=== PATIENT | female | born 1950 | race Caucasian/White ===

== ENCOUNTER 2023-03-28 13:58 | Outpatient (OUT) | payer MEDICARE, OTHER, SELFPAY ==
--- NOTE | 2023-03-28 14:14 | CT_ITS ---
The [address] [address] Patient Name: TRAN RAYA MRN: [id number] date: 1950 Sex: F Assigned Patient Location: CT Current Patient Location: CT Accession/Order Number: [id number] Exam Date: 03/28/2023 14:35 Report Date: 03/28/2023 18:07 At the request of: NAGA VENTURA Procedure: CT chest wo con EXAM: CT chest wo con HISTORY: Multifocal pneumonia J18.9 COMPARISON: CT chest 12/29/2022. TECHNIQUE: Helical axial CT images of the chest were obtained without the administration of IV contrast. Dose reduction techniques were achieved by using automated exposure control and/or adjustment of mA and/or kV according to patient size and/or use of iterative reconstruction technique. FINDINGS: VASCULATURE: No aneurysm. There are moderate calcific plaques in thoracic aorta. HEART/PERICARDIUM: The heart is normal in size. No pericardial effusion. There are multivessel atherosclerotic calcifications and/or stents at coronary arteries, most prominent at LAD coronary artery. MEDIASTINAL/HILAR LYMPH NODES: Within the limitations of lack of IV contrast, no lymphadenopathy are identified. ESOPHAGUS: There is mild diffuse wall thickening of distal esophagus. PLEURAL CAVITY: No pleural effusion or pneumothorax. LUNGS/AIRWAYS: No areas of new consolidation, nodule or mass is seen. There are scarring and mild linear atelectasis with subtle groundglass opacities in right middle lobe and lingula. There are moderate centrilobular emphysematous changes in bilateral upper lobes. Biapical and bibasilar scarring is noted. The central airways are patent. CHEST WALL/AXILLA/LOWER NECK: Normal. VISUALIZED UPPER ABDOMEN: Images through the upper abdomen demonstrates no acute abnormality. BONES: No acute process.. There are degenerative changes of thoracic spine and accentuation of thoracic kyphosis. IMPRESSION: 1. No acute cardiopulmonary abnormality, specifically no evidence of pneumonia. 2. Scarring/linear atelectasis with subtle groundglass opacities in right middle lobe and lingula, likely represent sequela of previous multifocal pneumonia. Emphysema in bilateral upper lobes 3. Multivessel severe coronary artery calcifications and/or stents. 4. Mild diffuse wall thickening of distal esophagus, may represent esophagitis. Electronically authenticated by: [facility] Date: 03/28/2023 18:07
== END 2023-03-28 13:59 | disposition home or self-care (01) ==
LOC: CT 14:04
PROVIDERS: PCP Family Medicine; Visit Provider Internal Medicine
DX: J18.9 Pneumonia, unspecified organism (principal)
CPT/HCPCS: 71250

== ENCOUNTER 2023-08-08 06:20 | Outpatient (OUT) | payer MEDICARE, MEDICAID, OTHER, SELFPAY ==
[2023-08-08 06:57] LABS: Basophils Absolute Auto 0.1 10^3/uL (0.0-0.1); Eosinophils Absolute Auto 0.2 10^3/uL (0.0-0.7); Hematocrit 45.1 % (36.0-48.0); Hemoglobin 14.3 g/dL (12.0-16.0); Immature Granulocytes Abs Auto 0.01 10^3/uL (0.00-0.03); Immature Granulocytes Pct Auto 0.1 % (0.0-0.5); Lymphocytes Absolute Auto 1.8 10^3/uL (1.2-3.8); Mean Corpuscular HGB Conc 31.7 g/dL (29.9-35.2); Mean Corpuscular Hemoglobin 30.8 pg (26.7-34.0); Mean Platelet Volume 9.7 fL (9.5-13.5); Monocytes Absolute Auto 0.6 10^3/uL (0.3-0.8); Monocytes Percent Auto 8.7 % (1.7-12.0); Neutrophils Absolute Auto 4.3 10^3/uL (1.4-6.5); Neutrophils Percent Auto 61.2 % (43.0-75.0); Platelet Count 222 10^3/uL (150-450); Red Blood Count 4.65 10^6/uL (4.20-5.40); Red Cell Distribution Width 13.1 % (11.0-15.0); White Blood Count 7.1 10^3/uL (4.0-11.0)
[2023-08-08 08:16] LABS: Alanine Aminotransferase 24 U/L (14-59); Albumin Level 3.4 g/dL (3.4-5.0); Alkaline Phosphatase 116 U/L (46-116); Anion Gap 9.1; Aspartate Amino Transferase 15 U/L (15-37); BUN Creatinine Ratio 25.5; Bilirubin Total 0.7 mg/dL (0.2-1.0); Calcium 9.5 mg/dL (8.5-10.1); Carbon Dioxide 32.6 mmol/L (21.0-32.0); Chloride 103 mmol/L (98-107); Cholesterol 145 mg/dL (<=200); Estimated GFR (African America >60 (>=60); Estimated GFR (Non-African Ame 58 (>=60); Globulin 3.3 g/dL; Glucose 102 mg/dL (74-106); HDL Cholesterol 74 mg/dL (40-60); Potassium 4.7 mmol/L (3.5-5.1); Sodium 140 mmol/L (136-145); Total Protein 6.7 g/dL (6.4-8.2); Triglycerides 63 mg/dL (<=150); VLDL CHOLESTEROL 12.6 mg/dL
[2023-08-08 08:22] LABS: Creatinine Urine Random 156.76 mg/dL (20.00-300.00); Microalbum Creatinine Ratio Ur 10.8 mg/g (0.0-29.9); Microalbumin Urine Random 1.7 mg/dL (<=30.0)
[2023-08-08 08:41] LABS: Estimated Average Glucose 128 mg/dL; Glycohemoglobin A1C 6.1 % (4.5-6.2)
== END 2023-08-08 06:21 | disposition home or self-care (01) ==
PROVIDERS: PCP Nurse Practitioner Family; Visit Provider Nurse Practitioner Family
DX: E78.2 Mixed hyperlipidemia (principal); E11.9 Type 2 diabetes mellitus without complications
CPT/HCPCS: 36415; 80053; 80061; 82043; 82570; 83036; 85025

== ENCOUNTER 2023-11-18 12:49 | Outpatient (OUT) | payer MEDICARE, OTHER, MEDICAID, SELFPAY ==
--- NOTE | 2023-11-18 12:52 | CT_ITS ---
[address] [address] Patient Name: TRAN RAYA MRN: [id number] date: 1950 Sex: F Assigned Patient Location: CT Current Patient Location: CT Accession/Order Number: [id number] Exam Date: 11/18/2023 13:05 Report Date: 11/18/2023 15:36 At the request of: NAGA VENTURA Procedure: CT lung screening low-dose EXAM TYPE: CT lung screening low-dose INDICATION: Current smoker. COMPARISON: CT chest 12/29/2022, LD CT scan of the chest 11/17/2022 TECHNIQUE: Noncontrast, Low dose, helical axial images of the chest were obtained, and thin section, axial MIP, and coronal and sagittal reformats were also submitted from the acquisition scanner under radiologist supervision. Each series was submitted in a lung algorithm. Dose reduction techniques were achieved by using automated exposure control and/or adjustment of mA and/or kV according to patient size and/or use of iterative reconstruction technique. FINDINGS: Please note that this examination was tailored for evaluation of pulmonary nodules, and therefore soft tissue detail is suboptimal. Heart size within normal limits. No pericardial effusion. Coronary artery calcification and calcified atherosclerotic change within the aorta. No aortic aneurysm. No mediastinal or axillary lymphadenopathy. Small amount of layering debris within the distal trachea and bilateral mainstem bronchi. No central endobronchial nodule. Mild diffuse emphysematous change and bronchial wall thickening. Scarring at the lung apices. No lobar consolidation, pleural effusion or pneumothorax. Calcified right upper lobe granuloma. Small focus of atelectasis within the lingula. No new suspicious noncalcified pulmonary nodule. No acute findings in the upper abdomen. No acute fracture. CT/CT lung screening low-dose IMPRESSION: Lung RADS category 1: Negative. LD CT scan of the chest in one year recommended. Electronically authenticated by: CRISTY COX Date: 11/18/2023 15:36
--- OUTSIDE RECORDS SUMMARY | 2023-11-18 12:53 | XMS_ITS | CCD ---
Author Name Unknown Address [address] [facility] [address] [place] [address] Organization [facility] Care Team Providers Care Security Control Assessor Name Role Phone SAMSA, NAGA P Attending Unavailable SAMSA, NAGA P Admitting Unavailable SAMSA ., NAGA Admitting Unavailable SAMSA ., NAGA Attending Unavailable SKIP, DR DELA CRUZ Primary Care Unavailable Jean Mooney Consulting Unavailable SAMSA ., NAGA Consulting Unavailable SAMSA ., NAGA Admitting Unavailable SAMSA ., NAGA Attending Unavailable SKIP, DR DELA CRUZ Primary Care Unavailable SAMSA ., NAGA Consulting Unavailable SAMSA ., NAGA Admitting Unavailable SAMSA ., NAGA Attending Unavailable SKIP, DR DELA CRUZ Primary Care Unavailable SAMSA ., NAGA Consulting Unavailable SKIP, DR DELA CRUZ Primary Care Unavailable FAWWAJudy, BHAT H Admitting Unavailable HERNAN, BHAT H Attending Unavailable SAMSA ., NAGA Consulting Unavailable GAIL SCHAEFER Consulting Unavailable NOLAN ., POONAM Consulting Unavailable FAWWAD, BHAT H Consulting Unavailable ARMAND PATEL Consulting Unavailable SISTER, MICHAEL Consulting Unavailable JOCY MUÑOZ Consulting Unavailable Lazara Hernandez Unavailable Wesley Valdivia DO Primary Care Provider TASHA PADGETT Attending Unavailable WESLEY VALDIVIA Referring Unavailable WESLEY VALDIVIA Primary Care Unavailable Allergies Allergy Classification Reported Allergen(s) Allergy Type Date of Onset Reaction(s) Facility (1 source) Ticagrelor Drug Allergy 12-29-2012 [facility] Repository (2 sources) Ticagrelor; Translations: [TICAGRELOR] Drug Allergy 11-19-2016 [facility] Medications Current Medications Medication Drug Class(es) Dates Sig (Normalized) Sig (Original) acetaminophen 500 mg oral tablet (1 source) Start: 12-19-2022 take 2 tablets by mouth every six hours as needed for pain acetaminophen (TYLENOL EXTRA STRENGTH) 500 mg tablet Take 2 tablets (1,000 mg total) by mouth every 6 (six) hours as needed for pain. 30 tablet 0 12/19/2022 Active atorvastatin 80 mg oral tablet (3 sources) HMG-CoA Reductase Inhibitor Start: 02-25-2023 take 1 tablet by mouth in the morning atorvastatin (LIPITOR) 80 mg tablet Indications: Mixed hyperlipidemia , PAD (peripheral artery disease) ([facility]) , Atherosclerotic PVD with intermittent claudication ([facility]) Take 1 tablet (80 mg total) by mouth in the morning. 90 tablet 3 02/25/2023 Active 120 actuat budesonide 0.16 mg/actuat / formoterol fumarate 0.0048 mg/actuat / glycopyrrolate 0.009 mg/actuat metered dose inhaler (2 sources) Corticosteroid, beta2-Adrenergic Agonist take 2 puff(s) by inhalation twice daily Breztri Aerosphere 160-9-4.8 MCG/ACT 2 puffs Inhalation Twice a day Active furosemide 20 mg oral tablet (3 sources) Loop Diuretic Start: 02-07-2023 take 1 tablet by mouth once daily furosemide (LASIX) 20 mg tablet Take 1 tablet (20 mg total) by mouth daily. 90 tablet 3 02/07/2023 Active lidocaine 25 mg/ml / prilocaine 25 mg/ml topical cream (1 source) Antiarrhythmic, Amide Local Anesthetic Start: 02-07-2023 lidocaine-prilocaine (EMLA) cream 1 Application lisinopril 5 mg oral tablet (3 sources) Angiotensin Converting Enzyme Inhibitor Start: 02-07-2023 take 1 tablet by mouth in the morning lisinopriL (PRINIVIL,ZESTRIL) 5 mg tablet Take 1 tablet (5 mg total) by mouth in the morning. 90 tablet 3 02/07/2023 Active metFORMIN hydrochloride 500 mg oral tablet (3 sources) Biguanide Start: 10-26-2016 take 1 tablet by mouth in the morning, then take 1 tablet by mouth at mealtime metFORMIN (GLUCOPHAGE) 500 mg tablet Take 1 tablet (500 mg total) by mouth in the morning and 1 tablet (500 mg total) in the evening. Take with meals. 0 10/26/2016 Active pramipexole dihydrochloride 1 mg oral tablet (3 sources) Nonergot Dopamine Agonist Start: 08-03-2023 pramipexole (MIRAPEX) 1 mg tablet 12 hr ranolazine 500 mg extended release oral tablet (3 sources) Anti-anginal Start: 02-17-2023 take 1 tablet by mouth every twelve hours in the morning, then take 1 tablet by mouth at bedtime ranolazine (RANEXA) 500 mg 12 hr tablet Take 1 tablet (500 mg total) by mouth in the morning and 1 tablet (500 mg total) before bedtime. 180 tablet 3 02/17/2023 Active take 1 tablet by mouth twice sonal ly Ranexa 500 MG 1 tablet Orally twice daily Active Completed/Discontinued Medications Medication Drug Class(es) Dates Sig (Normalized) Sig (Original) Aspir-81 81 MG (2 sources) take 1 tablet by mouth once daily Aspir-81 81 MG 1 tablet Orally Once a day Not-Taking cilostazol 100 mg oral tablet (2 sources) Phosphodiesterase 3 Inhibitor take 1 tablet by mouth every twelve hours Cilostazol 100 MG 1 tablet 30 minutes before or 2 hours after breakfast and dinner Orally Twice a day Not-Taking clopidogrel 75 mg oral tablet (2 sources) P2Y12 Platelet Inhibitor take 1 tablet by mouth every twenty-four hours Clopidogrel Bisulfate 75 MG 1 tablet Orally Once a day Not-Taking cyclobenzaprine hydrochloride 10 mg oral tablet (2 sources) Muscle Relaxant take 1 tablet by mouth every eight hours Cyclobenzaprine HCl 10 MG 1 tablet as needed Orally Three times a day Not-Taking hydroCHLOROthiazide 25 mg oral tablet (2 sources) Thiazide Diuretic take 1 tablet by mouth every twenty-four hours hydroCHLOROthiazide 25 MG 1 tablet in the morning Orally Once a day Not-Taking ibuprofen 600 mg oral tablet (1 source) Nonsteroidal Anti-inflammatory Drug Start: 12-20-19 End: 10-18-19 24 take 1 tablet by mouth every six hours ibuprofen (MOTRIN) 600 mg tablet Take 1 tablet (600 mg total) by mouth every 6 (six) hours. 30 tablet 0 12/19/2022 10/18/2023 Discontinued metoprolol tartrate 25 mg oral tablet (2 sources) beta-Adrenergic Mariangel take 1 tablet by mouth every twelve hours Metoprolol Tartrate 25 MG 1 tablet with food Orally Twice a day Not-Taking Problems Active Problems Problem Classification Problem Date Documented Date Episodic/Chronic Aortic; peripheral; and visceral artery aneurysms (1 source) Aneurysm of infrarenal abdominal aorta ; Translations: [Infrarenal abdominal aortic aneurysm (AAA) without rupture] Onset: 01-10-2023 01-10-2023 Chronic Chronic obstructive pulmonary disease and bronchiectasis (9 sources) Chronic obstructive pulmonary disease with (acute) lower respiratory infection; Translations: [Chronic obstructive pulmonary disease with (acute) exacerbation] Onset: 11-15-2022 Chronic Coronary atherosclerosis and other heart disease (5 sources) Atherosclerotic heart disease of [place] coronary artery without angina pectoris; Translations: [Disorder of cardiovascular system] Onset: 08-02-2018 Chronic Coronary atherosclerosis and other heart disease (2 sources) Presence of coronary angioplasty implant and graft; Translations: [PRESENCE COR ANGPLSTY IMPLANT AND GRAFT] Onset: 01-05-2023 Episodic Diabetes mellitus without complication (3 sources) Type 2 diabetes mellitus without complication; Translations: [Type 2 diabetes mellitus without complications] Chronic Disorders of lipid metabolism (5 sources) Hyperlipidemia, unspecified; Translations: [Mixed hyperlipidemia] Onset: 11-22-2016 Chronic Essential hypertension (4 sources) Essential (primary) hypertension; Translations: [Essential hypertension] Onset: 01-05-2023 Chronic Miscellaneous mental health disorders (1 source) Other specified eating disorder; Translations: [OTHER SPECIFIED EATING DISORDER] Onset: 01-16-2023 Chronic Occlusion or stenosis of precerebral arteries (2 sources) Bilateral stenosis of carotid arteries; Translations: [Occlusion and stenosis of bilateral carotid arteries] Onset: 02-14-2017 Resolved: 01-04-2019 02-14-2017 Chronic Other aftercare (1 source) Other termite treater (current) drug therapy; Translations: [OTH HALFWAY CURRENT DRUG THERAPY] Onset: 01-05-2023 Episodic Other aftercare (1 source) exterminator termite (current) use of oral hypoglycemic drugs; Translations: [HEAVY TRUCK DRIVER USE ORAL HYPOGLYCEMIC DX] Onset: 01-05-2023 Episodic Other fractures (2 sources) Closed fracture pelvis, single pubic ramus ; Translations: [Other specified fracture of unspecified pubis, subsequent encounter for fracture with routine healing] Episodic Other fractures (2 sources) Fracture of pubic rami; Translations: [Other specified fracture of unspecified pubis, initial encounter for closed fracture] Episodic Other hematologic conditions (4 sources) Secondary polycythemia; Translations: [SECONDARY POLYCYTHEMIA] Onset: 01-11-2023 Episodic Other hereditary and degenerative nervous system conditions (2 sources) Restless legs; Translations: [Restless legs syndrome] Chronic Other hereditary and degenerative nervous system conditions (1 source) Restless legs syndrome Chronic Other injuries and conditions due to external causes (1 source) History of falling; Translations: [HISTORY OF FALLING] Onset: 01-05-2023 Episodic Peripheral and visceral atherosclerosis (4 sources) Peripheral vascular disease, unspecified; Translations: [Peripheral vascular disease] Onset: 11-22-2016 11-22-2016 Chronic Pneumonia (except that caused by tuberculosis or sexually transmitted disease) (1 source) Pneumonia, unspecified organism; Translations: [PNEUMONIA UNSPECIFIED ORGANISM] Onset: 01-05-2023 Episodic Prolapse of female genital organs (2 sources) Midline cystocele; Translations: [Cystocele, midline] Onset: 10-26-2017 10-18-2023 Chronic Respiratory failure; insufficiency; arrest (adult) (7 sources) Acute and chronic respiratory failure with hypoxia; Translations: [Dependence on supplemental oxygen] Onset: 11-11-2022 Chronic Screening and history of mental health and substance abuse codes (5 sources) Personal history of nicotine dependence; Translations: [PERSONAL HISTORY OF NICOTINE DEPEND] Onset: 11-17-2022 Episodic Septicemia (except in labor) (4 sources) Sepsis, unspecified organism; Translations: [Gram-negative sepsis, unspecified] Onset: 12-29-2022 Episodic Substance-related disorders (4 sources) Nicotine dependence, cigarettes, with withdrawal; Translations: [Nicotine dependence] Onset: 11-15-2022 Chronic Unclassified (1 source) CONTACT W/AND (SUSP) EXPOS COVID-19; Translations: [CONTACT W/AND (SUSP) EXPOS COVID-19] Onset: 01-05-2023 Past or Other Problems Problem Classification Problem Date Documented Da te Episodic/Chronic Anal and rectal conditions (1 source) Rectal prolapse; Translations: [Rectal prolapse] Onset: 01-02-2018 01-02-2018 Episodic Mood disorders (1 source) Mood disorders Onset: 10-28-2021 10-28-2021 Other fractures (1 source) Closed fracture of one rib; Translations: [Fracture of one rib, unspecified side, initial encounter for closed fracture] Onset: 12-19-2022 12-19-2022 Episodic Other lower respiratory disease (1 source) Dyspnea; Translations: [Shortness of breath] Resolved: 01-04-2019 01-04-2019 Episodic Residual codes; unclassified (1 source) Tobacco user; Translations: [Tobacco use] Onset: 05-12-2020 05-12-2020 Episodic Respiratory failure; insufficiency; arrest (adult) (1 source) Acute respiratory failure; Translations: [Acute respiratory failure with hypoxia] Onset: 10-04-2022 10-05-2022 Episodic Results Test Name Value Interpretation Reference Range Facility TRANSFERRINon 01-12-2023 Transferrin [Mass/Vol] 234 mg/dL Normal 192-364 [facility] Comment on above: Performed By: #### P OCGLUC #### [facility] [address] [place] [address] Dr. Demetrio Kan CBC AUTO DIFFon 01-11-2023 BASO # 0.1 103/ul Normal 0.0-0.1 [facility] Comment on above: Performed By: #### C BC, RETIC #### [facility] [address] [place] [address] Dr. Demetrio Kan Basophils/100 WBC (Bld) 0.8 % Normal 0.2-2.0 [facility] Comment on above: Performed By: #### C BC, RETIC #### [facility] [address] [place] [address] Dr. Demetrio Kan EO # 0.1 103/ul Normal 0.0-0.7 [facility] Comment on above: Performed By: #### C BC, RETIC #### [facility] [address] [place] [address] Dr. Demetrio Kan Eosinophils/100 WBC (Bld) 1.1 % Normal 0.9-7.0 [facility] Comment on above: Performed By: #### C BC, RETIC #### [facility] [address] [place] [address] Dr. Demetrio Kan Erythrocyte distribution width (RBC) [Ratio] 14.6 % Normal 11.0-15.0 [facility] Comment on above: Performed By: #### C BC, RETIC #### [facility] [address] [place] [address] Dr. Demetrio Kan Hematocrit (Bld) [Volume fraction] 39.4 % Normal 36.0-48.0 [facility] Comment on above: Performed By: #### C BC, RETIC #### [facility] [address] [place] [address] Dr. Demetrio Kan Hemoglobin (Bld) [Mass/Vol] 12.6 g/dL Normal 12.0-16.0 [facility] Comment on above: Performed By: #### C BC, RETIC #### [facility] [address] [place] [address] Dr. Demetrio Kan IG # 0.05 10e3/ul Critically high 0.00-0.03 [facility] Comment on above: Performed By: #### C PHIL, RETIC #### [facility] [address] [place] [address] Dr. Demetrio Kan IG % 0.6 % Critically high 0.0-0.5 [facility] Comment on above: Performed By: #### C BC, RETIC #### [facility] [address] [place] [address] Dr. Demetrio Kan LYMPH # 1.2 103/ul Normal 1.2-3.8 [facility] Comment on above: Performed By: #### C PHIL, RETIC #### [facility] [address] [place] [address] Dr. Demetrio Kan Lymphocytes/100 WBC (Bld) 14.3 % Critically low 20.5-60.0 [facility] Comment on above: Performed By: #### C BC, RETIC #### [facility] [address] [place] [address] Dr. Demetrio Kan MANUAL DIFF REQ NO Normal [facility] Comment on above: Performed By: #### C BC, RETIC #### [facility] [address] [place] [address] Dr. Demetrio Kan MCH (RBC) [Entitic mass] 31.0 pg Normal 26.7-34.0 [facility] Comment on above: Performed By: #### C BC, RETIC #### [facility] [address] [place] [address] Dr. Demetrio Kan MCHC (RBC) [Mass/Vol] 32.0 g/dL Normal 29.9-35.2 [facility] Comment on above: Performed By: #### C BC, RETIC #### [facility] [address] [place] [address] Dr. Demetrio Kan MCV (RBC) [Entitic vol] 97.0 fL Normal 81.0-99.0 [facility] Comment on above: Performed By: #### C BC, RETIC #### [facility] [address] [place] [address] Dr. Demetrio Kan MONO # 0.7 103/ul Normal 0.3-0.8 [facility] Comment on above: Performed By: #### C BC, RETIC #### [facility] [address] [place] [address] Dr. Demetrio Kan Monocytes/100 WBC (Bld) 8.7 % Normal 1.7-12.0 [facility] Comment on above: Performed By: #### C BC, RETIC #### [facility] [address] [place] [address] Dr. Demetrio Kan NEUT # 6.3 103/ul Normal 1.4-6.5 [facility] Comment on above: Performed By: #### C BC, RETIC #### [facility] [address] [place] [address] Dr. Demetrio Kan Neutrophils/100 WBC (Bld) 74.5 % Normal 43.0-75.0 [facility] Comment on above: Performed By: #### C BC, RETIC #### [facility] [address] [place] [address] Dr. Demetrio Kan Platelet mean volume (Bld) [Entitic vol] 9.6 fL Normal 9.5-13.5 [facility] Comment on above: Performed By: #### C BC, RETIC #### [facility] [address] [place] [address] Dr. Demetrio Kan PLT 275 103/ul Normal 150-450 [facility] Comment on above: Performed By: #### C BC, RETIC #### [facility] [address] [address] [address] Demetrio Kan RBC 4.06 106/ul Critically low 4.20-5.40 [facility] Comment on above: Performed By: #### C BC, RETIC #### [facility] [address] [address] [address] Demetrio Kan WBC 8.5 103/ul Normal 4.0-11.0 [facility] Comment on above: Performed By: #### C BC, RETIC #### [facility] [address] [address] [address] Demetrio Kan FERRITINon 01-11-2023 Ferritin [Mass/Vol] 323.0 ng/mL Critically high 8.0-252.0 [facility] Comment on above: Performed By: #### C MP, BNP, CMADM #### [facility] [address] [place] [address] Dr. Demetrio Kan IRON AND TIBCon 01-11-2023 % SATURATION 28.6 % Normal [facility] Comment on above: Performed By: #### C MP, BNP, CMADM #### [facility] [address] [place] [address] Dr. Demetrio Kan Iron [Mass/Vol] 79.0 ug/dL Normal 50.0-170.0 [facility] Comment on above: Performed By: #### C MP, BNP, CMADM #### [facility] [address] [place] [address] Dr. Demetrio Kan TIBC DIRECT 276.0 ug/dL Normal 250.0-450.0 [facility] Comment on above: Performed By: #### C MP, BNP, CMADM #### [facility] [address] [place] [address] Dr. Demetrio Kan RETICULOCYTEon 01-11-2023 RETIC 1.71 % Normal 0.60-3.10 [facility] Comment on above: Performed By: #### C BC, RETIC #### [facility] [address] [place], [place] [id number] Dr. Demetrio Kan VIT B12 AND FOLATEon 023 Cobalamin (Vitamin B12) [Mass/Vol] 771.0 pg/mL Normal 193.0-986.0 [facility] Comment on above: Performed By: #### P OCGLUC #### [facility] [address] [address] [address] Demetrio Kan FOLATE 10.00 ng/mL Normal 8.60-58.90 [facility] Comment on above: Performed By: #### P OCGLUC #### [facility] [address] [address] [address] Demetrio Kan CULTURE SPUTUMon 01-01-2023 CULTURE SPUTUM Isolate 1 Klebsiella pneumoniae Light growth of Isolate 2 Escherichia coli Light growth of ORGANISM 1 Klebsiella pneumoniae ANTIBIOTIC M.I.C RX STATUS Ampicillin >=32 R F Ampicillin/Sulbactam 4 S F Piperacillin/Tazobac gandara <=4 S F Cefazolin <=4 S F Ceftazidime <=1 S F Ceftriaxone <=1 S F Ertapenem <=0.5 S F Imipenem <=0.25 S F Amikacin <=2 S F Gentamicin <=1 S F Tobramycin <=1 S F Ciprofloxacin <=0.25 S F Levofloxacin <=0.12 S F Trimethoprim/Sulfame thoxazole <=20 S F ORGANISM 2 Escherichia coli ANTIBIOTIC M.I.C RX STATUS Ampicillin 8 S F Ampicillin/Sulbactam 4 S F Piperacillin/Tazobac gandara <=4 S F Cefazolin <=4 S F Ceftazidime <=1 S F Ceftriaxone <=1 S F Ertapenem <=0.5 S F Imipenem <=0.25 S F Amikacin <=2 S F Gentamicin <=1 S F Tobramycin <=1 S F Ciprofloxacin <=0.25 S F Levofloxacin <=0.12 S F Trimethoprim/Sulfame thoxazole <=20 S F Normal [facility] Comment on above: Performed By: #### S PUTCX ####[facility] [address] [address]Dr. Demetrio Kan CBC W MANUAL DIFFon 01-01-20 23 ATYPICAL LYMPH # Normal [facility] Comment on above: Performed By: #### C JESSE ####[facility] [address] [id number]. Yilan Kan ATYPICAL LYMPH % Normal [facility] Comment on above: Performed By: #### C JESSE ####[facility] [address] [place] [id number]. Yilan Kan BAND # 0.0 103/ul Normal 0.0-0.3 [facility] Comment on above: Performed By: #### C JESSE ####[facility] [address] [id number]. Yilan Kan BAND % 0 % Normal 0-5 [facility] Comment on above: Performed By: #### C JESSE ####[facility] [address] [address]Dr. Yijosé miguel Kan BASOM # 0.00 103/ul Normal 0.00-0.10 [facility] Comment on above: Performed By: #### C JESSE ####[facility] [address] [address]Dr. Yijosé miguel Kan BASOM % 0.0 % Critically low 0.2-2.0 [facility] Comment on above: Performed By: #### C JESSE ####[facility] [address] [id number]. Yilan Kan BLAST # Normal [facility] Comment on above: Performed By: #### C JESSE ####[facility] [address] [place] [id number]. Yilan Kan BLAST % Normal [facility] Comment on above: Performed By: #### C JESSE ####[facility] [address] [place] [id number]. Carolynelan Kan CORRECTED WBC Normal 4.0-11.0 [facility] Comment on above: Performed By: #### C JESSE ####[facility] [address] [place] [id number]. Yilan Kan EOS # 0.00 103/ul Normal 0.00-0.70 [facility] Comment on above: Performed By: #### C JESSE ####[facility] [address] [place], [place] [address]El. Demetrio Kan EOS% 0.0 % Critically low 0.9-7.0 [facility] Comment on above: Performed By: #### C JESSE ####[facility] [address] [place], [place] [address]Mv. Demetrio Kan HCT 32.1 % Critically low 36.0-48.0 [facility] Comment on above: Performed By: #### C JESSE ####[facility] [address] [place], [place] [address]Yg. Demetrio Kan HGB 10.4 g/dl Critically low 12.0-16.0 [facility] Comment on above: Performed By: #### C JESSE ####[facility] [address] [place], [place] [address]Hy. Demetrio Kan LYMPHM # 0.46 103/ul Critically low 1.20-3.80 [facility] Comment on above: Performed By: #### C JESSE ####[facility] [address] [place], [place] [address]Nh. Demetrio Kan LYMPHM% 3.0 % Critically low 20.5-60.0 [facility] Comment on above: Performed By: #### Chantel MOLINA ####[facility] [address] [place], [place] [address]Sn. Demetrio Kan MCH 30.1 pg Normal 26.7-34.0 [facility] Comment on above: Performed By: #### C JESSE ####[facility] [address] [place], [place] [address]Fz. Demetrio Kan MCHC 32.4 g/dl Normal 29.9-35.2 [facility] Comment on above: Performed By: #### C JESSE ####[facility] [address] [place], [place] [address]Qr. Demetrio Kan MCV 93.0 fL Normal 81.0-99.0 [facility] Comment on above: Performed By: #### C JESSE ####[facility] [address] [place] [id number]. Demetrio Kan METAMYELOCYTE # Normal [facility] Comment on above: Performed By: #### C JESSE ####[facility] [address] [place] [id number]. Demetrio Kan METAMYELOCYTE % Normal [facility] Comment on above: Performed By: #### C JESSE ####[facility] [address] [place] [id number]. Demetrio Kan MONOM# 0.15 103/ul Critically low 0.30-0.80 [facility] Comment on above: Performed By: #### C JESSE ####[facility] [address] [address]Dr. Demetrio Kan MONOM% 1.0 % Critically low 1.7-12.0 [facility] Comment on above: Performed By: #### C JESSE ####[facility] [address] [place] [address]Dr. Demetrio Kan MPV 9.7 fL Normal 9.5-13.5 [facility] Comment on above: Performed By: #### C JESSE ####[facility] [address] [place], [place] [address]Dr. Demetrio Kan MYELOCYTE # Normal [facility] Comment on above: Performed By: #### C JESSE ####[facility] [address] [place] [id number]. Demetrio Kan MYELOCYTE % Normal [facility] Comment on above: Performed By: #### C JESSE ####[facility] [address] [address]Dr. Demetrio Kan NRBC Normal [facility] Comment on above: Performed By: #### C JESSE ####[facility] [address] [place] [address]Dr. Demetrio Kan PLT 249 103/ul Normal 150-450 [facility] Comment on above: Performed By: #### C JESSE ####[facility] [address] [place] [id number]. Demetrio Kan RBC 3.45 106/ul Critically low 4.20-5.40 [facility] Comment on above: Performed By: #### C JESSE ####[facility] Tjt[address]ctnkp[address] [place] [id number]. Demetrio Kan RDW 14.6 % Normal 11.0-15.0 [facility] Comment on above: Performed By: #### C JESSE ####[facility] Ezgdofkihr3984 [place] [id number]. Demetrio Kan SEG # 14.59 103/ul Critically high 1.40-6.50 [facility] [place] [facility] Comment on above: Performed By: #### C JESSE ####[facility] Hixmrqflqq[address] [place] [address]Dr. Demetrio Kan SEG % 96.0 % Critically high 43.0-75.0 [facility] Comment on above: Performed By: #### C JESSE ####[facility] Shogmbawjg[address] [place] [id number]. Demetrio Kan WBC 15.2 103/ul Critically high 4.0-11.0 [facility] Comment on above: Performed By: #### C JESSE ####[facility] Cgtvmgtycp8101 [place] [id number] Kan POINT OF CARE GLUCOSEon 12-03 Glucose [Mass/Vol] 294 mg/dL Critically high 74-[address] [facility] Comment on above: Performed By: #### C MP, BNP, CMADM #### [facility] [address] [place] [address] [address] Demetrio Kan Glucose [Mass/Vol] 252 mg/dL Critically high 74-[address] [facility] Comment on above: Performed By: #### P OCGLUC #### [facility] [address] [place] [address] [address] Demetrio Kan PROF 14(COMP METB)on 023 Albumin [Mass/Vol] 1.8 g/dL Crit[facility] low 3.4-5.0 [facility] Comment on above: Performed By: #### C MP, BNP, CMADM #### [facility] [address] [place] [address] [address] Demetrio Kan Albumin/Globulin [Mass ratio] 0.5 {ratio} Normal [facility] Comment on above: Performed By: #### C MP, BNP, CMADM #### [facility] [address] [place] [address] [address] Demetrio Kan ALP [Catalytic activity/Vol] 101 U/L Normal 46-116 [facility] Comment on above: Performed By: #### C MP, BNP, CMADM #### [facility] [address] [place] [address] [address] Demetrio Kan ALT [Catalytic activity/Vol] 15 U/L Normal 14-59 [facility] Comment on above: Performed By: #### C MP, BNP, CMADM #### [facility] [address] [place] [address] [address] Demetrio Kan Anion gap [Moles/Vol] 9.7 mmol/L Normal [facility] Comment on above: Performed By: #### C MP, BNP, CMADM #### [facility] [address] [place] [address] [address] Demetrio Kan AST [Catalytic activity/Vol] 13 U/L Critically low 15-37 [facility] Comment on above: Performed By: #### C MP, BNP, CMADM #### [facility] [address] [place] [address] [address] Demetrio Kan Bilirubin [Mass/Vol] 0.2 mg/dL Normal 0.2-1.0 [facility] Comment on above: Performed By: #### C MP, BNP, CMADM #### [facility] [address] [place] [address] [address] Demetrio Kan Calcium [Mass/Vol] 9.0 mg/dL Normal 8.5-10.1 [facility] Comment on above: Performed By: #### C MP, BNP, CMADM #### [facility] [address] [place] [address] [address] Demetrio Kan Chloride [Moles/Vol] 105 mmol/L Normal 98-107 [facility] Comment on above: Performed By: #### C MP, BNP, CMADM #### [facility] [address] [place] [address] [address] Demetrio Kan CO2 [Moles/Vol] 27.8 mmol/L Normal 21.0-32.0 [facility] Comment on above: Performed By: #### C MP, BNP, CMADM #### [facility] [address] [place] [address] Dr. Demetrio Kan Creatinine [Mass/Vol] 0.82 mg/dL Normal 0.55-1.02 [facility] Comment on above: Performed By: #### C MP, BNP, CMADM #### [facility] [address] [place] [address] Dr. Demetrio Kan EGFR-AF CAMEROONIAN >60 Normal >=60 [facility] Comment on above: Performed By: #### C MP, BNP, CMADM #### [facility] [address] [place] [address] Dr. Demetrio Kan EGFR-NON AF CAMEROONIAN >60 Normal >=60 [facility] Comment on above: Performed By: #### C MP, BNP, CMADM #### [facility] [address] [place] [address] Dr. Demetrio Kan Globulin (S) [Mass/Vol] 3.8 g/dL Normal [facility] Comment on above: Performed By: #### C MP, BNP, CMADM #### [facility] [address] [place] [address] [address] Demetrio Kan Glucose [Mass/Vol] 268 mg/dL Critically high 74-106 [facility] Comment on above: Performed By: #### C MP, BNP, CMADM #### [facility] [address] [place] [address] Dr. Demetrio Kan Potassium [Moles/Vol] 4.5 mmol/L Normal 3.5-5.1 [facility] Comment on above: Performed By: #### C MP, BNP, CMADM #### [facility] [address] [place] [address] Dr. Demetrio Kan Protein [Mass/Vol] 5.6 g/dL Critically low 6.4-8.2 Th [facility] Comment on above: Performed By: #### C MP, BNP, CMADM #### [facility] [address] [place] [address] [address] Demetrio Kan Sodium [Moles/Vol] 138 mmol/L Normal 136-145 [facility] Comment on above: Performed By: #### C MP, BNP, CMADM #### [facility] [address] [place] [address] [address] Demetrio Kan Urea nitrogen [Mass/Vol] 30.0 mg/dL Critically high 7.0-18.0 [facility] Comment on above: Performed By: #### C MP BNP, CMADM #### [facility] [address] [place] [address] [address] Demetrio Kan Urea nitrogen/Creatinine [Mass ratio] 36.6 mg/mg Normal [facility] Comment on above: Performed By: #### C MP BNP, CMADM #### [facility] [address] [place] [address] [address] Demetrio Kan XR CHEST 1 Von 12-31-2022 XR CHEST 1 V EXAM: XR CHEST 1 V HISTORY: SHORTNESS OF BREATH COMPARISON: 12/29/2022. TECHNIQUE: Chest X-ray AP, 1 view. FINDINGS: Support devices: None. 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 Persistent bibasilar airspace opacities. Blunting of costophrenic angles likely represents airspace disease, trace/small effusions and be difficult to exclude. No evidence of pneumothorax. Heart and mediastinum: Stable contours compared to prior examination. Bones: No acute abnormality identified. IMPRESSION: Persistent bibasilar airspace disease/consolidatio ns. Electronically authenticated by: JOCY MUÑOZ Date: 2022-12-31 08:22 Normal [facility] BLOOD GASES BTYon 12-30-2022 02 MODE NASAL CANNULA Normal The [facility] Comment on above: Performed By: #### A BG ####[facility] [address]hb[address] [place] [address]Dr. Demetrio Kan ALLENS TEST Positive Normal [facility] Comment on above: Performed By: #### A BG ####[facility] Weeynmeiui4[address] [place] [address]Dr. Demetrio Kan Base excess Calc (Bld) [Moles/Vol] 6.0 mmol/L Critically high -2.0-2.0 [facility] Comment on above: Performed By: #### A BG ####[facility] Ypepoouju[address] [place], [place] [address]Dr. Demetrio Kan BIPAP PRESSURE Normal [facility] Comment on above: Performed By: #### A BG ####[facility] Nuspb[address] [place], [place] [address]Dr. Demetrio Kan CPAP Normal [facility] Comment on above: Performed By: #### A BG ####[facility] Axlxxvtmbv[address] [place], [place] [address]Dr. Demetrio Kan FIO2 Normal [facility] Comment on above: Performed By: #### A BG ####[facility] Loiwztasww[address] [place], [place] [address]Dr. Demetrio Kan HCO3 (Bld) [Moles/Vol] 28.7 mmol/L Critically high 22.0-26.0 [facility] Comment on above: Performed By: #### A BG ####[facility] [address]iszv[address]mtx[address] [place], [place] [address]Dr. Demetrio Kan LPM 6 Normal [facility] Comment on above: Performed By: #### A BG ####[facility] Fciozfzmif[address] [place], [place] [address]Dr. Demetrio Kan MINUTE VOLUME Normal [facility] Comment on above: Performed By: #### A BG ####[facility] Teaurvcnrz[address] [place], [place] [address]Dr. Demetrio Kan Oxygen (Bld) [Partial pressure] 102.0 mm[Hg] Critically high 80.0-100.0 [facility] Comment on above: Performed By: #### A BG ####[facility] Kkbhpuvclf[address] [place] [address]Dr. Demetrio Kan Oxygen saturation in Blood 99.1 % Normal 95.0-100.0 [facility] Comment on above: Performed By: #### A BG ####[facility] Bsaxkrdcqq[address] [place] [address]Dr. Demetrio Kan PCO2 34.5 mmHg Critically low 35.0-45.0 [facility] Comment on above: Performed By: #### A BG ####[facility] Smkmaxhizc[address] [place] [address]Dr. Demetrio Kan PEEP [facility] Comment on above: Performed By: #### A BG ####[facility] Gbskvvusyk39[address] [place] [address]Dr. Demetrio Kan pH (Bld) 7.529 [pH] Critically high 7.350-7.450 [facility] Comment on above: Result Comment: Prev iously reported as: 7.520 On 12/30/2022 07:13 By LM4 Performed By: #### A BG ####[facility] Crpuyzipeh[address] [place] [address]Dr. Demetrio Kan PIP [facility] Comment on above: Performed By: #### A BG ####[facility] Nhmsmuzedu3[address] [place] [address]Dr. Demetrio Kan PS [facility] Comment on above: Performed By: #### A BG ####[facility] Udvjdetojs[address] [place] [address]Dr. Demetrio Kan PUNCTURE SITE RR Normal The [facility] Comment on above: Performed By: #### A BG ####[facility] Gdudonztqs37[address] [place] [address]Dr. Demetrio Kan RATE [facility] Comment on above: Performed By: #### A BG ####[facility] Dpaudlemls7[address] [place] [address]Dr. Demetrio Kan VENT MODE [facility] Comment on above: Performed By: #### A BG ####[facility] Uksmaboke[address] [place], [place] [address]Dr. Demetrio Lucius [place] Normal [facility] Comment on above: Performed By: #### A BG ####[facility] Vpeqhpdtwe9[address] [place] [address]Dr. Demetrio Kan CBC W MANUAL DIFFon 12-31-19 23 ATYPICAL LYMPH # Normal [facility] Comment on above: Performed By: #### C BCMAN ####[facility] Msqksmgupo9861 [place] [address]Dr. Demetrio Kan ATYPICAL LYMPH % Normal [facility] Comment on above: Performed By: #### C JESSE ####[facility] Oonfulkedh3294 [place] [address]Dr. Demetrio Kan BAND # 0.0 103/ul Normal 0.0-0.3 [facility] Comment on above: Performed By: #### C JESSE ####[facility] Rkevmvlyzr[address] [place], [place] [address]Dr. Demetrio Kan BAND % 0 % Normal 0-5 [facility] Comment on above: Performed By: #### C JESSE ####[facility] Gniimvokgn[address] [place], [place] [address]Dr. Demetrio Kan BASOM # 0.00 103/ul Normal 0.00-0.10 [facility] Comment on above: Performed By: #### C JESSE ####[facility] Vinppnbupi7234 [place] [address]Dr. Demetrio Kan BASOM % 0.0 % Critically low 0.2-2.0 [facility] Comment on above: Performed By: #### C BCTEDDY ####[facility] Szlvbpiwir[address] [place], [place] [address]Dr. Carolynejosé miguel Kan BLAST # Normal [facility] Comment on above: Performed By: #### C JESSE ####[facility] Ybiwkptfhp[address] [place], [place] [address]Dr. Demetrio Kan BLAST % Normal [facility] Comment on above: Performed By: #### C JESSE ####[facility] Svgoakbrsj[address] [place], [place] [address]Dr. Demetrio Kan CORRECTED WBC Normal 4.0-11.[address] [facility] Comment on above: Performed By: #### C BCTEDDY ####[facility] Zbomsldndj0680 [place] [id number]. Demetrio Kan EOS # 0.00 103/ul Normal 0.00-0.70 [facility] Comment on above: Performed By: #### C BCTEDDY ####[facility] Fgwtdrxirh2329 [place] [id number]. Demetrio Kan EOS% 0.0 % Critically low 0.9-7.0 [facility] Comment on above: Performed By: #### C JESSE ####[facility] Lyzfbtvovv3761 [place] [id number]. Demetrio Kan HCT 30.2 % Critically low 36.0-48.0 [facility] Comment on above: Performed By: #### C JESSE ####[facility] Nwpkqoifyy7085 [place] [id number]. Demetrio Kan HGB 9.9 g/dl Critically low 12.0-16.0 [facility] Comment on above: Performed By: #### C JESSE ####[facility] Wmbpumbaid2642 [place] [id number]. Demetrio Kan LYMPHM # 0.14 103/ul Critically low 1.20-3.80 [facility] Comment on above: Performed By: #### C JESSE ####[facility] Utitatcbek3807 [place] [id number]. Demetrio Kan LYMPHM% 1.0 % Critically low 20.5-60.0 [facility] Comment on above: Performed By: #### C JESSE ####[facility] Nrcxfcccpe7852 [place] [id number]. Demetrio Kan MCH 30.1 pg Normal 26.7-34.0 [facility] Comment on above: Performed By: #### C JESSE ####[facility] Rikmfseazt6417 [place] [id number]. Demetrio Kan MCHC 32.8 g/dl Normal 29.9-35.2 [facility] Comment on above: Performed By: #### Chantel MOLINA ####[facility] Lgkutyxiln1483 [place] [id number]. Demetrio Kan MCV 91.8 fL Normal 81.0-99.0 [facility] Comment on above: Performed By: #### Chantel MOLINA ####[facility] Kksqogpeku7212 [place] [id number]. Demetrio Kan METAMYELOCYTE # Normal [facility] Comment on above: Performed By: #### Chantel MOLINA ####[facility] Dqsyalqfxn9990 [place] [id number]. Demetrio Kan METAMYELOCYTE % Normal [facility] Comment on above: Performed By: #### Chantel MOLINA ####[facility] Ihzwcoosqc0136 [place] [id number]. Demetrio Kan MONOM# 0.00 103/ul Critically low 0.30-0.80 [facility] Comment on above: Performed By: #### Chantel MOLINA ####[facility] Gylurdgknw5483 [place] [id number]. Demetrio Kan MONOM% 0.0 % Critically low 1.7-12.0 [facility] Comment on above: Performed By: #### Chantel MOLINA ####[facility] Otwfdfhmgk9887 [place] [id number]. Demetrio Kan MPV 9.9 fL Normal 9.5-13.5 [facility] Comment on above: Performed By: #### Chantel MOLINA ####[facility] Uzydcbbvmp2647 [place] [id number]. Demetrio Kan MYELOCYTE # Normal [facility] Comment on above: Performed By: #### Chantel MOLINA ####[facility] Ewipwxnuto2668 [place] [id number]. Demetrio Kan MYELOCYTE % Normal [facility] Comment on above: Performed By: #### Chantel MOLINA ####[facility] Fspoxtsmpq1124 [place] [id number]. Demetrio Kan NRBC Normal [facility] Comment on above: Performed By: #### C JESSE ####[facility] Dmxqlhbskv3610 [place], [place] [address]Bm. Demetrio Kan PLT 200 103/ul Normal 150-450 [facility] Comment on above: Performed By: #### C JESSE ####[facility] Nhogolpaqn3666 [place], [place] [address]Fb. Demetrio Kan RBC 3.29 106/ul Critically low 4.20-5.40 [facility] Comment on above: Performed By: #### C JESSE ####[facility] Vhqgxahmpa2902 [place], [place] [address]Td. Demetrio Kan RDW 14.3 % Normal 11.0-15.0 [facility] Comment on above: Performed By: #### C JESSE ####[facility] Wrncmcdxad4761 [place], [place] [address]Zr. Demetrio Kan SEG # 13.76 103/ul Critically high 1.40-6.50 [facility] [place] [facility] Comment on above: Performed By: #### C JESSE ####[facility] Tqbhmsbxwm5026 [place], [place] [address]Xt. Demetrio Kan SEG % 99.0 % Critically high 43.0-75.0 [facility] Comment on above: Performed By: #### C JESSE ####[facility] Cxxdyymktt5909 [place], [place] [address]Td. Demetrio Kan WBC 13.9 103/ul Critically high 4.0-11.0 [facility] Comment on above: Performed By: #### C JESSE ####[facility] Cxvqnxliyw2292 [place], [place] [address]YtPham Kan POINT OF CARE GLUCOSEon -3 0-2022 Glucose [Mass/Vol] 281 mg/dL Critically high 74-[address] [facility] Comment on above: Performed By: #### P OCGLUC #### [facility] [address] [place], [place] [address] Dr. Demetrio Kan Glucose [Mass/Vol] 219 mg/dL Critically high 74-[address] [facility] Comment on above: Performed By: #### C MP, BNP, CMADM #### [facility] [address] [place], [place] [address] Dr. Demetrio Kan Glucose [Mass/Vol] 333 mg/dL Critically high 74-[address] [facility] Comment on above: Performed By: #### P OCGLUC #### [facility] [address] [place], [place] [address] Dr. Demetrio Kan Glucose [Mass/Vol] 265 mg/dL Critically high 74-[address] [facility] Comment on above: Performed By: #### C MP, BNP, CMADM #### [facility] [address] [place] [address] [address] Demetrio Kan PROF 14(COMP METB)on 023 Albumin [Mass/Vol] 1.7 g/dL Critically low 3.4-5.0 Th [facility] Comment on above: Performed By: #### C MP ####[facility] Obtjvesncu5992 [place] [address]DrPham Kan Albumin/Globulin [Mass ratio] 0.4 {ratio} Normal [facility] Comment on above: Performed By: #### C MP ####[facility] Pstqlsjsut2484 [place] [address]DrPham Kan ALP [Catalytic activity/Vol] 103 U/L Normal 46-116 [facility] Comment on above: Performed By: #### C MP ####[facility] Lrtzfaxuhk7881 [place] [address]DrPham Kan ALT [Catalytic activity/Vol] 11 U/L Critically low 14-59 [facility] Comment on above: Performed By: #### C MP ####[facility] Rdrvrgudtd6894 [place] [id number] Kan Anion gap [Moles/Vol] 8.8 mmol/L Normal [facility] Comment on above: Performed By: #### C MP ####[facility] Gtilzsalfv3808 [place] [address]DrPham Kan AST [Catalytic activity/Vol] 10 U/L Critically low 15-37 [facility] Comment on above: Performed By: #### C MP ####[facility] Nhbpseijlz8716 [place] [address]Dr. Demetrio Kan Bilirubin [Mass/Vol] 0.3 mg/dL Normal 0.2-1.0 [facility] Comment on above: Performed By: #### C MP ####[facility] Cpreryzxej2055 [place] [address]Dr. Demetrio Kan Calcium [Mass/Vol] 8.8 mg/dL Normal 8.5-10.1 [facility] Comment on above: Performed By: #### C MP ####[facility] Acjecjkrsc8754 [place] [address]Dr. Demetrio Kan Chloride [Moles/Vol] 103 mmol/L Normal 98-107 [facility] Comment on above: Performed By: #### C MP ####[facility] Ugbjihomze[address] [place], [place] [address]Dr. Demetrio Kan CO2 [Moles/Vol] 30.9 mmol/L Normal 21.0-32.0 [facility] Comment on above: Performed By: #### C MP ####[facility] Ivankgnjpy[address] [place], [place] [address]Dr. Demetrio Kan Creatinine [Mass/Vol] 0.69 mg/dL Normal 0.55-1.02 [facility] Comment on above: Performed By: #### C MP ####[facility] Jthwtikmne[address] [place], [place] [address]Dr. Demetrio Kan EGFR-AF CAMEROONIAN >60 Normal >=60 [facility] Comment on above: Performed By: #### C MP ####[facility] Cajxtjqjwn[address] [place], [place] [address]Dr. Demetrio Kan EGFR-NON AF CAMEROONIAN >60 Normal >=60 [facility] Comment on above: Performed By: #### C MP ####[facility] Oeychxpxhe[address] [place], [place] [address]Dr. Demetrio Kan Globulin (S) [Mass/Vol] 3.9 g/dL Normal [facility] Comment on above: Performed By: #### C MP ####[facility] Lytymhahzs6574 [place] [address]Dr. Demetrio Kan Glucose [Mass/Vol] 216 mg/dL Critically high 74-106 [facility] Comment on above: Performed By: #### C MP ####[facility] Wlybldavun60[address] [place] [address]Dr. Demetrio Kan Potassium [Moles/Vol] 2.7 mmol/L Critically low 3.5-5.1 [facility] Comment on above: Performed By: #### C MP ####[facility] Agihlcxlyg[address] [place] [address]Dr. Demetrio Kan Protein [Mass/Vol] 5.6 g/dL Critically low 6.4-8.2 [facility] Comment on above: Performed By: #### C MP ####[facility] Onxcmnftro[address] [place] [address]Dr. Demetrio Kan Sodium [Moles/Vol] 140 mmol/L Normal 136-145 [facility] Comment on above: Performed By: #### C MP ####[facility] Gqdohkmcxw3[address] [place] [address]Dr. Demetrio Kan Urea nitrogen [Mass/Vol] 16.0 mg/dL Normal 7.0-18.0 [facility] Comment on above: Performed By: #### C MP ####[facility] Roonqhncij[address] [place] [address]Dr. Demetrio Kan Urea nitrogen/Creatinine [Mass ratio] 23.2 mg/mg Normal [facility] Comment on above: Performed By: #### C MP ####[facility] Onjpgzbyyz[address]894 [place] [address]DrPham Kan BNPon 12-29-2022 Natriuretic peptide B (Bld) [Mass/Vol] 824.0 pg/mL Normal <=900.0 [facility] Comment on above: Performed By: #### C MP, BNP, CMADM #### [facility] [address] [place] [address] [address] Demetrio Kan CARDIAC IGNACIA ADMITon 023 CK [Catalytic activity/Vol] 43 U/L Normal 26-192 [facility] Comment on above: Performed By: #### C MP, BNP, CMADM #### [facility] [address] [place] [address] [address] Demetrio Kan CK.MB [Mass/Vol] 0.91 ng/mL Normal <=3.60 [facility] Comment on above: Performed By: #### C MP, BNP, CMADM #### [facility] [address] [place] [address] [address] Demetrio Kan HSTROP 18.1 pg/mL Normal 4.0-51.3 [facility] Comment on above: Result Comment: CUT- OFF POINTS HAVE BEEN ESTABLISHED BASED ON THE FOURTH UNIVERSAL DEFINITIONS OF MYOCARDIAL INFARCTION. THE UPPER REFERENCE LIMIT (URL) OF TROPONIN, DEFINED THE 99TH PERCENTILE OF cTnI DISTRIBUTION IN A REFERENCE POPULATION, HAS BEEN CONFIRMED THE DECISION THRESHOLD FOR SD DIAGNOSIS. Performed By: #### C MP, BNP, CMADM #### [facility] [address] [place] [address] [address] Demetrio Kan KAVEH 63 ng/mL Normal 9-82 [facility] Comment on above: Performed By: #### C MP, BNP, CMADM #### [facility] [address] [place] [address] [address] Demetrio Kan CBC AUTO DIFFon 12-29-2022 BASO # 0.1 103/ul Normal 0.0-0.1 [facility] Comment on above: Performed By: #### C BC ####[facility] Eocytjpwbd7660 [place] [address]DrPham Kan Basophils/100 WBC (Bld) 0.4 % Normal 0.2-2.0 [facility] Comment on above: Performed By: #### C BC ####[facility] Ihbexjylgn5096 [place] [id number]. Demetrio Kan EO # 0.1 103/ul Normal 0.0-0.7 [facility] Comment on above: Performed By: #### C BC ####[facility] Jnghoptnmi2069 [place] [id number]. Demetrio Kan Eosinophils/100 WBC (Bld) 0.4 % Critically low 0.9-7.0 [facility] Comment on above: Performed By: #### C BC ####[facility] Eyhdemzrhr[address] [place] [address]Dr. Demetrio Lucius Erythrocyte distribution width (RBC) [Ratio] 14.1 % Normal 11.0-15.0 [facility] Comment on above: Performed By: #### C BC ####[facility] [address] [place] [address]Dr. Demetrio Kan Hematocrit (Bld) [Volume fraction] 37.6 % Normal 36.0-48.0 [facility] Comment on above: Performed By: #### C BC ####[facility] Vvexexuxpb[address] [place], [place] [address]Dr. Demetrio Kan Hemoglobin (Bld) [Mass/Vol] 12.4 g/dL Normal 12.0-16.0 [facility] Comment on above: Performed By: #### C BC ####[facility] Gquuklfh[address] [place], [place] [address]Dr. Demetrio Kan IG # 0.12 10e3/ul Critically high 0.00-0.03 [facility] Comment on above: Performed By: #### C BC ####[facility] Dxftdp[address]ct[address] [place], [place] [address]Dr. Demetrio Kan IG % 0.7 % Critically high 0.0-0.5 [facility] Comment on above: Performed By: #### C BC ####[facility] Mdiuiicrpt[address] [place], [place] [address]Dr. Demetrio Kan LYMPH # 0.4 103/ul Critically low 1.2-3.8 [facility] Comment on above: Performed By: #### C BC ####[facility] Wsbrdbxevj[address] [place], [place] [address]Dr. Demetrio Kan Lymphocytes/100 WBC (Bld) 2.4 % Critically low 20.5-60.0 [facility] Comment on above: Performed By: #### C BC ####[facility] Rw[address] [place], [place] [address]Dr. Demetrio Kan MANUAL DIFF REQ NO Normal [facility] Comment on above: Performed By: #### C BC ####[facility] [address] [place] [address]Dr. Demetrio Kan MCH (RBC) [Entitic mass] 30.5 pg Normal 26.7-34.0 [facility] Comment on above: Performed By: #### C BC ####[facility] Dbmkwsmkcw[address] [place], [place] [address]Dr. Demetrio Kan MCHC (RBC) [Mass/Vol] 33.0 g/dL Normal 29.9-35.2 [facility] Comment on above: Performed By: #### C BC ####[facility] [address]wnwn[address]utf[address] [place], [place] [address]DrPham Kan MCV (RBC) [Entitic vol] 92.6 fL Normal 81.0-99.0 [facility] Comment on above: Performed By: #### C BC ####[facility] F[address]he[address] [place], [place] [address]DrPham Kan MONO # 1.0 103/ul Critically high 0.3-0.8 [facility] Comment on above: Performed By: #### C BC ####[facility] Voeze[address] [place], [place] [address]DrPham Kan Monocytes/100 WBC (Bld) 5.6 % Normal 1.7-12.0 [facility] Comment on above: Performed By: #### C BC ####[facility] Delau[address] [place], [place] [address]DrPham Kan NEUT # 16.1 103/ul Critically high 1.4-6.5 [facility] Comment on above: Performed By: #### C BC ####[facility] Z[address]rfqhl[address] [place], [place] [address]DrPham Kan Neutrophils/100 WBC (Bld) 90.5 % Critically high 43.0-75.0 [facility] Comment on above: Performed By: #### C BC ####[facility] W[address]ns[address] [place], [place] [address]DrPham Kan Platelet mean volume (Bld) [Entitic vol] 9.5 fL Normal 9.5-13.5 [facility] Comment on above: Performed By: #### C BC ####[facility] [address] [place] [address]DrPham Kan PLT 245 103/ul Normal 150-450 [facility] Comment on above: Performed By: #### C BC ####[facility] [address] [place] [address]Dr. Demetrio Kan RBC 4.06 106/ul Critically low 4.20-5.40 [facility] Comment on above: Performed By: #### C BC ####[facility] [address] [place] [address]DrPham Kan WBC 17.7 103/ul Critically high 4.0-11.0 [facility] Comment on above: Performed By: #### C BC ####[facility] [address] [place] [address]Dr. Demetrio Kan CBC W MANUAL DIFFon 12-30-19 23 ANISOCYTOSIS 1+ Normal [facility] Comment on above: Performed By: #### P OCGLUC #### [facility] [address] [place] [address] [address] Demetrio Kan ATYPICAL LYMPH # Normal [facility] Comment on above: Performed By: #### P OCGLUC #### [facility] [address] [place] [address] [address] Demetrio Kan ATYPICAL LYMPH % Normal [facility] Comment on above: Performed By: #### P OCGLUC #### [facility] [address] [place] [address] [address] Demetrio Kan BAND # 0.7 103/ul Critically high 0.0-0.3 [facility] Comment on above: Performed By: #### P OCGLUC #### [facility] [address] [place] [address] Dr. Demetrio Kan BAND % 3 % Normal 0-5 [facility] Comment on above: Performed By: #### P OCGLUC #### [facility] [address] [place] [address] [address] Demetrio Kan BASOM # 0.00 103/ul Normal 0.00-0.10 [facility] Comment on above: Performed By: #### P OCGLUC #### [facility] [address] [place] [address] [address] Demetrio Kan BASOM % 0.0 % Critically low 0.2-2.0 [facility] Comment on above: Performed By: #### P OCGLUC #### [facility] [address] [place] [address] [address] Demetrio Kan BLAST # Normal [facility] Comment on above: Performed By: #### P OCGLUC #### [facility] [address] [place] [address] [address] Demetrio Kan BLAST % Normal [facility] Comment on above: Performed By: #### P OCGLUC #### [facility] [address] [place] [address] Dr. Demetrio Kan CORRECTED WBC Normal 4.0-11.[address] [facility] Comment on above: Performed By: #### P OCGLUC #### [facility] [address] [place] [address] Dr. Demetrio Kan EOS # 0.00 103/ul Normal 0.00-0.70 [facility] Comment on above: Performed By: #### P OCGLUC #### [facility] [address] [place] [address] Dr. Demetrio Kan EOS% 0.0 % Critically low 0.9-7.0 [facility] Comment on above: Performed By: #### P OCGLUC #### [facility] [address] [place] [address] Dr. Demetrio Kan HCT 33.1 % Critically low 36.0-48.0 [facility] Comment on above: Performed By: #### P OCGLUC #### [facility] [address] [place] [address] Dr. Demetrio Kan HGB 11.1 g/dl Critically low 12.0-16.0 [facility] Comment on above: Performed By: #### P OCGLUC #### [facility] [address] [place] [address] [address] Demetrio Kan LYMPHM # 0.95 103/ul Critically low 1.20-3.80 [facility] Comment on above: Performed By: #### P OCGLUC #### [facility] [address] [place] [address] [address] Demetrio Kan LYMPHM% 4.0 % Critically low 20.5-60.0 [facility] Comment on above: Performed By: #### P OCGLUC #### [facility] [address] [place] [address] [address] Demetrio Kan MCH 30.8 pg Normal 26.7-34.0 [facility] Comment on above: Performed By: #### P OCGLUC #### [facility] [address] [place] [address] [address] Demetrio Kan MCHC 33.5 g/dl Normal 29.9-35.2 [facility] Comment on above: Performed By: #### P OCGLUC #### [facility] [address] [place] [address] [address] Demetrio Kan MCV 91.9 fL Normal 81.0-99.0 [facility] Comment on above: Performed By: #### P OCGLUC #### [facility] [address] [place] [address] [address] Demetrio Kan METAMYELOCYTE # Normal [facility] Comment on above: Performed By: #### P OCGLUC #### [facility] [address] [place] [address] [address] Demetrio Kan METAMYELOCYTE % Normal [facility] Comment on above: Performed By: #### P OCGLUC #### [facility] [address] [place] [address] [address] Demetrio Kan MONOM# 1.42 103/ul Critically high 0.30-0.80 [facility] Comment on above: Performed By: #### P OCGLUC #### [facility] [address] [place] [address] [address] Demetrio Kan MONOM% 6.0 % Normal 1.7-12.0 [facility] Comment on above: Performed By: #### P OCGLUC #### [facility] [address] [place] [address] [address] Demetrio Kan MPV 9.7 fL Normal 9.5-13.5 [facility] Comment on above: Performed By: #### P OCGLUC #### [facility] [address] [place] [address] [address] Demetrio Kan MYELOCYTE # Normal [facility] Comment on above: Performed By: #### P OCGLUC #### [facility] [address] [place] [address] [address] Demetrio Kan MYELOCYTE % Normal [facility] Comment on above: Performed By: #### P OCGLUC #### [facility] [address] [place] [address] [address] Demetrio Kan NRBC Normal [facility] Comment on above: Performed By: #### P OCGLUC #### [facility] [address] [place] [address] [address] Demetrio Kan PLT 235 103/ul Normal 150-450 [facility] Comment on above: Performed By: #### P OCGLUC #### [facility] [address] [place] [address] [address] Demetrio Kan RBC 3.60 106/ul Critically low 4.20-5.40 [facility] Comment on above: Performed By: #### P OCGLUC #### [facility] [address] [place] [address] [address] Demetrio Kan RDW 14.2 % Normal 11.0-15.0 [facility] Comment on above: Performed By: #### P OCGLUC #### [facility] [address] [place] [address] [address] Demetrio Kan SEG # 20.62 103/ul Critically high 1.40-6.50 [facility] Comment on above: Performed By: #### P OCGLUC #### [facility] [address] [place] [address] [address] Demetrio Kan SEG % 87.0 % Critically high 43.0-75.0 [facility] Comment on above: Performed By: #### P OCGLUC #### [facility] [address] [place] [address] [address] Demetrio Kan WBC 23.7 103/ul Critically high 4.0-11.0 [facility] Comment on above: Performed By: #### P OCGLUC #### [facility] [address] [place] [address] [address] Demetrio Kan CTA CHEST WO W CONon 023 CTA CHEST WO W CON EXAMINATION: CTA CHEST WO W CON HISTORY: COUGH COMPARISON: 11/17/2022 TECHNIQUE: CT angiography of the pulmonary arteries following the administration of intravenous contrast. Coronal and sagittal MIP (maximum intensity projection) images were performed. Dose reduction techniques were achieved by using automated exposure control and/or adjustment of mA and/or kV according to patient size and/or use of iterative reconstruction technique. FINDINGS: The study is technically adequate for the diagnosis of pulmonary embolism, with good contrast bolus to the pulmonary arteries. TUBES AND IMPLANTS: None. CHEST WALL AND LOWER NECK: Unremarkable. BONES: No suspicious lesions. Osteopenia. Multilevel degenerative changes of the spine. UPPER ABDOMEN: Unremarkable. MEDIASTINUM AND ROSE: Mildly enlarged mediastinal lymph nodes are seen AORTA: Mild atherosclerosis without aneurysm PULMONARY ARTERIES: No embolism HEART: Mild cardiomegaly CORONARY ARTERIES: Moderate to severe coronary artery calcifications and/or stents. LUNG AND AIRWAYS: Confluent airspace in the lingula, right middle lobe and bilateral lower lobe. Scattered bilateral tree-in-bud opacities are seen PLEURA: No pneumothorax or pleural effusion. IMPRESSION: 1. No evidence for pulmonary embolism. 2. Findings concerning for multifocal pneumonia. 3. Moderate to severe coronary artery calcifications and/or stents. Mild cardiomegaly. Electronically authenticated by: ARMAND PATEL Date: 2022-12-29 03:05 Normal [facility] CULTURE BLOODon 12-29-2022 Microscopic examination of blood, culture Culture Observations: NO GROWTH AT 5 DAYS. Normal [facility] Comment on above: Performed By: #### B LDCX2 ####[facility] [address] [place] [address]DrPham Kan Performed By: #### B LDCX1 ####[facility] [address] [place] [address]Dr. Demetrio Kan Covid-19 PCR (CVDTB)on 12-02 SARS-CoV-2 (COVID-19) RNA BRUNO+probe Ql (Unsp spec) Not detected Normal NOT DETECTED [facility] Comment on above: Result Comment: When diagnostic testing is negative, the possibility of a false negative should be considered in the context of a patient's recent exposures and the presence of clinical signs and symptoms consistent with SARS-CoV-2. This test is not yet approved or cleared by the [place] FDA. When there are no FDA-approved or cleared tests available, and other criteria are met, FDA can make tests available under an emergency access mechanism called an Emergency Use Authorization (EUA). The EUA for this test is supported by the [employer] Worker of Health and Human Service's declaration that circumstances exist to justify the emergency use of in vitro diagnostics for the detection and/or diagnosis of the virus that causes COVID-19. This EUA will remain in effect for the duration of the COVID-19 declaration justifying emergency of IVDs, unless it is terminated or revoked by the FDA (after which the test may no longer be used). Performed By: #### C VDTBH ####[facility] [address] [place], [place] [address]Dr. Demetrio Kan INFLUENZA A AND B AGon 12-29 INFLUANEGH SEE BELOW Normal [facility] Comment on above: Result Comment: Nega tive for Flu A protein angiten. Infection due to Flu A cannot be ruled out. Flu A angiten in the sample may be below the detection limit of the test. Performed By: #### I NFLUAB ####[facility] [address] [place], [place] [address]Dr. Demetrio Kan INFLUBNEGH SEE BELOW Normal [facility] Comment on above: Result Comment: Nega tive for Flu B protein antigen. Infection due to Flu B cannot be ruled out. Flu B antigen in the sample may be below the detection limit of the test. Performed By: #### I NFLUAB ####[facility] [address] [place], [place] [address] A AG Negative Normal NEGATIVE SEE COMMENT [facility] Comment on above: Performed By: #### I NFLUAB ####[facility] [address] [place], [place] [address]YbDr. Demetrio Kan INFLUENZA B AG Negative Normal NEGATIVE SEE COMMENT [facility] Comment on above: Performed By: #### I NFLUAB ####[facility] [address] [place], [place] [address]CvDr. Demetrio Kan LACTATE/LACTIC ACIDon 2022 Lactate [Moles/Vol] 1.7 mmol/L Normal 0.4-2.0 [facility] Comment on above: Performed By: #### L ACT #### [facility] [address] [place] [address] [address] Demetrio Kan LIPID PROFILEon 12-29-2022 CHOL-HDL RATIO NORM SEE BELOW Normal [facility] Comment on above: Result Comment: 3.3 - 4.4 LOW RISK 4.4 - 7.1 AVERAGE RISK 7.1 - 11.0 MODERATE RISK >11.0 HIGH RISK Performed By: #### P OCGLUC #### [facility] [address] [place] [address] [address] Demetrio Kan Cholesterol [Mass/Vol] 98 mg/dL Normal <=200 [facility] Comment on above: Performed By: #### P OCGLUC #### [facility] [address] [place] [address] [address] Demetrio Kan Cholesterol in HDL [Mass/Vol] 32 mg/dL Critically low 40-60 [facility] Comment on above: Performed By: #### P OCGLUC #### [facility] [address] [place] [address] [address] Demetrio Kan Cholesterol in LDL [Mass/Vol] 53.4 mg/dL Normal [facility] Comment on above: Performed By: #### P OCGLUC #### [facility] [address] [place] [address] [address] Demetrio Kan Cholesterol.total/C holesterol in HDL [Mass ratio] 3.1 {ratio} Normal [facility] Comment on above: Performed By: #### P OCGLUC #### [facility] [address] [place] [address] [address] Demetrio Kan HDL NORMAL > or = 60 mg/dl - LOW CARDIOVASCULAR RISK <40 mg/dl - HIGH CARDIOVASCULAR RISK Normal [facility] Comment on above: Performed By: #### P OCGLUC #### [facility] [address] [place] [address] [address] Demetrio Kan LDL CALC NORMAL SEE BELOW Normal [facility] Comment on above: Result Comment: <100 mg/dl OPTIMAL 100 - 129 mg/dl NEAR OR ABOVE OPTIMAL 130 - 159 mg/dl BORDERLINE HIGH 160 - 189 mg/dl HIGH >190 mg/dl VERY HIGH Performed By: #### P OCGLUC #### [facility] [address] [address] [address] Demetrio Kan Triglyceride [Mass/Vol] 63 mg/dL Normal <=150 [facility] Comment on above: Performed By: #### P OCGLUC #### [facility] [address] [place] [address] [address] Demetrio Kan VLDL CALC 12.6 mg/dL Normal [facility] Comment on above: Performed By: #### P OCGLUC #### [facility] [address] [place] [address] [address] Demetrio Kan MAGNESIUMon 12-29-2022 Magnesium [Mass/Vol] 1.7 mg/dL Critically low 1.8-2.4 [facility] Comment on above: Performed By: #### P OCGLUC #### [facility] [address] [place] [address] [address] Demetrio Kan POINT OF CARE GLUCOSEon 12-02 Glucose [Mass/Vol] 181 mg/dL Critically high -[address] [facility] Comment on above: Performed By: #### P OCGLUC #### [facility] [address] [address] [address] Demetrio Kan Glucose [Mass/Vol] 283 mg/dL Critically high -[address] [facility] Comment on above: Performed By: #### P OCGLUC ####[facility] [address] [place] [address]Dr. Demetrio Kan Glucose [Mass/Vol] 237 mg/dL Critically high -[address] [facility] Comment on above: Performed By: #### P OCGLUC ####[facility] [address] [place] [id number]. Demetrio Kan Glucose [Mass/Vol] 144 mg/dL Critically high 74-[address] [facility] Comment on above: Performed By: #### P OCGLUC ####[facility] [address] [place] [address]Dr. Demetrio Kan PROF 14(COMP METB)on 023 Albumin [Mass/Vol] 2.2 g/dL Critically low 3.4-5.0 Th [facility] Comment on above: Performed By: #### C MP, BNP, CMADM #### [facility] [address] [place] [address] [address] Demetrio Kan Albumin/Globulin [Mass ratio] 0.5 {ratio} Normal [facility] Comment on above: Performed By: #### C MP, BNP, CMADM #### [facility] [address] [place] [address] [address] Demetrio Kan ALP [Catalytic activity/Vol] 128 U/L Critically high 46-116 [facility] Comment on above: Performed By: #### C MP, BNP, CMADM #### [facility] [address] [address] [address] Demetrio Kan ALT [Catalytic activity/Vol] 14 U/L Normal 14-59 [facility] Comment on above: Performed By: #### C MP, BNP, CMADM #### [facility] [address] [place] [address] [address] Demetrio Kan Anion gap [Moles/Vol] 11.3 mmol/L Normal [facility] Comment on above: Performed By: #### C MP, BNP, CMADM #### [facility] [address] [address] [address] Demetrio Kan AST [Catalytic activity/Vol] 14 U/L Critically low 15-37 [facility] Comment on above: Performed By: #### C MP, BNP, CMADM #### [facility] [address] [address] [address] Demetrio Kan Bilirubin [Mass/Vol] 0.7 mg/dL Normal 0.2-1.0 [facility] Comment on above: Performed By: #### C MP, BNP, CMADM #### [facility] [address] [address] [address] Demetrio Kan Calcium [Mass/Vol] 9.2 mg/dL Normal 8.5-10.1 [facility] Comment on above: Performed By: #### C MP, BNP, CMADM #### [facility] [address] [place] [address] Dr. Demetrio Kan Chloride [Moles/Vol] 100 mmol/L Normal 98-107 [facility] Comment on above: Performed By: #### C MP, BNP, CMADM #### [facility] [address] [place] [address] Dr. Demetrio Kan CO2 [Moles/Vol] 31.6 mmol/L Normal 21.0-32.0 [facility] Comment on above: Performed By: #### C MP, BNP, CMADM #### [facility] [address] [place] [address] Dr. Demetrio Kan Creatinine [Mass/Vol] 0.75 mg/dL Normal 0.55-1.02 [facility] Comment on above: Performed By: #### C MP, BNP, CMADM #### [facility] [address] [place] [address] Dr. Demetrio Kan EGFR-AF CAMEROONIAN >60 Normal >=60 [facility] Comment on above: Performed By: #### C MP, BNP, CMADM #### [facility] [address] [place] [address] Dr. Demetrio Kan EGFR-NON AF CAMEROONIAN >60 Normal >=60 [facility] Comment on above: Performed By: #### C MP, BNP, CMADM #### [facility] [address] [place] [address] Dr. Demetrio Kan Globulin (S) [Mass/Vol] 4.4 g/dL Normal [facility] Comment on above: Performed By: #### C MP, BNP, CMADM #### [facility] [address] [place] [address] [address] Demetrio Kan Glucose [Mass/Vol] 178 mg/dL Critically high 74-106 [facility] Comment on above: Performed By: #### C MP, BNP, CMADM #### [facility] [address] [place] [address] [address] Demetrio Kan Potassium [Moles/Vol] 2.9 mmol/L Critically low 3.5-5.1 [facility] Comment on above: Performed By: #### C MP, BNP, CMADM #### [facility] [address] [place] [address] [address] Demetrio Kan Protein [Mass/Vol] 6.6 g/dL Normal 6.4-8.2 [facility] Comment on above: Performed By: #### C MP, BNP, CMADM #### [facility] [address] [address] [address] Demetrio Kan Sodium [Moles/Vol] 140 mmol/L Normal 136-145 [facility] Comment on above: Performed By: #### C MP, BNP, CMADM #### [facility] [address] [place] [address] [address] Demetrio Kan Urea nitrogen [Mass/Vol] 17.0 mg/dL Normal 7.0-18.0 [facility] Comment on above: Performed By: #### C MP, BNP, CMADM #### [facility] [address] [place] [address] [address] Demetrio Kan Urea nitrogen/Creatinine [Mass ratio] 22.7 mg/mg Normal [facility] Comment on above: Performed By: #### C MP, BNP, CMADM #### [facility] [address] [address] [address] Demetrio Kan PROF CHEM 8 (BAS METB)on Anion gap [Moles/Vol] 10.0 mmol/L Normal [facility] Comment on above: Performed By: #### B MP ####[facility] [address] [place] [address]Dr. Demetrio Kan Calcium [Mass/Vol] 8.9 mg/dL Normal 8.5-10.[address] [facility] Comment on above: Performed By: #### B MP ####[facility] [address] [place] [address]Dr. Demetrio Kan Chloride [Moles/Vol] 107 mmol/L Normal 98-107 [facility] Comment on above: Performed By: #### B MP ####[facility] [address] [place] [address]Dr. Demetrio Kan CO2 [Moles/Vol] 31.4 mmol/L Normal 21.0-32.0 [facility] Comment on above: Performed By: #### B MP ####[facility] [address] [place], [place] [address]Dr. Demetrio Kan Creatinine [Mass/Vol] 0.73 mg/dL Normal 0.55-1.02 [facility] Comment on above: Performed By: #### B MP ####[facility] [address] [place] [address]Dr. Demetrio Kan EGFR-AF CAMEROONIAN >60 Normal >=60 [facility] Comment on above: Performed By: #### B MP ####[facility] [address] [place], [place] [address]Dr. Demetrio Kan EGFR-NON AF CAMEROONIAN >60 Normal >=60 [facility] Comment on above: Performed By: #### B MP ####[facility] [address] [place] [address]Dr. Demetrio Kan Glucose [Mass/Vol] 148 mg/dL Critically high 74-[address] [facility] Comment on above: Performed By: #### B MP ####[facility] [address] [address]Dr. Demetrio Kan Potassium [Moles/Vol] 3.4 mmol/L Critically low 3.5-5.1 [facility] Comment on above: Performed By: #### B MP ####[facility] [address] [address]Dr. Demetrio Kan Sodium [Moles/Vol] 145 mmol/L Normal 136-[address] [facility] Comment on above: Performed By: #### B MP ####[facility] [address] [place], [place] [address]Dr. Demetrio Kan Urea nitrogen [Mass/Vol] 16.0 mg/dL Normal 7.0-18.0 [facility] Comment on above: Performed By: #### B MP ####[facility] [address] [place], [place] [address]Dr. Demetrio Kan Urea nitrogen/Creatinine [Mass ratio] 21.9 mg/mg Normal [facility] Comment on above: Performed By: #### B MP ####[facility] [address] [place], [place] [address]Dr. Demetrio Kan PROTIMEon 12-29-2022 INR Coag (PPP) [Relative time] 0.99 {INR} Normal [facility] Comment on above: Performed By: #### P TT, PT ####[facility] [address] [place], [place] [address]Dr. Demetrio Kan INR GUIDELINES SEE BELOW Normal [facility] Comment on above: Result Comment: TRAVIS RED INR: 2.0 - 3.0 CONDITIONS NOT LISTED BELOW 2.5 - 3.5 FOR PROSTHETIC HEART VALVE REPLACEMENT 2.5 - 3.5 RECURRENT THROMBOSIS Performed By: #### P TT, PT ####[facility] [address] [place], [place] [address]Dr. Demetrio Kan PT Coag (PPP) [Time] 10.5 s Normal 9.0-11.6 [facility] Comment on above: Performed By: #### P TT, PT ####[facility] [address] [place], [place] [address]Dr. Demetrio Kan PTTon 12-29-2022 aPTT Coag (Bld) [Time] 27.3 s Normal 22.3-36.2 [facility] Comment on above: Performed By: #### P TT, PT ####[facility] [address] [place], [place] [address]Dr. Demetrio Kan SPUTUM GRAM STAINon 12-30-19 COMMENTS Normal [facility] Comment on above: Performed By: #### P OCGLUC #### [facility] [address] [place] [address] Dr. Demetrio Kan DIPHTHEROIDS Normal [facility] Comment on above: Performed By: #### P OCGLUC #### [facility] [address] [place] [address] Dr. Demetrio Kan EPITHELIALS <25 Normal [facility] Comment on above: Performed By: #### P OCGLUC #### [facility] [address] [address] [address] Demetrio Kan FUNGAL ELEMENTS Normal [facility] Comment on above: Performed By: #### P OCGLUC #### [facility] [address] [place] [address] Dr. Demetrio Kan GRAM NEG BACILLI Normal [facility] Comment on above: Performed By: #### P OCGLUC #### [facility] [address] [place] [address] Dr. Demetrio GONZALEZ NEG DIPPLOCOCCI Normal [facility] Comment on above: Performed By: #### P OCGLUC #### [facility] [address] [place] [address] Dr. Demetrio Kan GRAM POS BACILLI FEW Normal [facility] Comment on above: Performed By: #### P OCGLUC #### [facility] [address] [place] [address] Dr. Demetrio Kan GRAM POSITIVE COCCI MODERATE Normal [facility] Comment on above: Performed By: #### P OCGLUC #### [facility] [address] [place] [address] Dr. Demetrio Kan WBC (Bld) [#/Vol] 10*3/uL Normal [facility] Comment on above: Performed By: #### P OCGLUC #### [facility] [address] [place] [address] Dr. Demetrio Kan SYMPTOMATIC COVID-19 ANTIGEN on 12-29-2022 EUA Statement SEE BELOW Normal The [facility] Comment on above: Result Comment: This test has not been FDA cleared or approved, but has been authorized by the FDA under an Emergency Use Authorization (EUA) for use by authorized laboratories certified under CLIA that meet the requirements to perform moderate or high complexity testing. This test has been authorized only for the detection of proteins from SARS-CoV-2, not for any other viruses or pathogens. The emergency use of this test is authorized for the duration of the declaration that circumstances exist justifying the authorization of emergency use of in vitro diagnostic tests for detection and/or diagnosis of Covid-19 under section 564(b)(1) of the Act, 21 U.S.C. 360bbb-3(b)(1), unless the declaration is terminated or authorization is revoked sooner. Performed By: #### C MP, BNP, CMADM #### [facility] [address] [place] [address] Dr. Demetrio Kan SARS-CoV-2 (COVID-19) RNA BRUNO+probe Ql (Unsp spec) Negative Normal NEGATIVE [facility] Comment on above: Performed By: #### C MP, BNP, CMADM #### [facility] [address] [place] [address] Dr. Demetrio Kan TSHon 12-29-2022 TSH 0.370 uIU/mL Normal 0.358-3.740 [facility] Comment on above: Performed By: #### P OCGLUC #### [facility] [address] [place] [address] Dr. Demetrio Kan XR CHEST 1 Von 12-29-2022 XR CHEST 1 V EXAM: XR CHEST 1 V REASON FOR EXAM: Female, 72 years, COUGH. TECHNIQUE: A single AP view of the chest is performed. COMPARISON: 06/27/2013. FINDINGS: Cardiac monitoring leads project over the chest. There is pulmonary vascular congestion. There is bilateral lower lobe airspace opacity, left greater than right. Small pleural effusions are not excluded. Normal size heart. Normal mediastinum and rose. Normal visualized pulmonary arteries. Normal visualized aortic arch and descending thoracic aorta. There are diffuse degenerative changes of the thoracic spine. The bones are demineralized. There is no demonstrated abnormality of the visualized soft tissue structures of the upper abdomen. IMPRESSION: Pulmonary vascular congestion. Bilateral lower lobe opacities may represent pulmonary edema or atelectasis. Superimposed pneumonia is not excluded. Question small bilateral pleural effusions. Electronically authenticated by: GAIL SCHAEFER Date: 2022-12-28 23:48 Normal [facility] CT LUNG CANCER SCREENINGon 0 11-17-2022 CT LUNG CANCER SCREENING EXAMINATION: CT LUNG CANCER SCREENING HISTORY: Nicotine dependence COMPARISON: No relevant comparison available. TECHNIQUE: Axial, Coronal, and Sagittal images were created without the administration of IV contrast material. Dose reduction techniques were achieved by using automated exposure control and/or adjustment of mA and/or kV according to patient size and/or use of iterative reconstruction technique. FINDINGS: LUNGS: Mild emphysematous changes and mild biapical pleural scarring. PLEURA: No mass, effusion, or pneumothorax. VASCULATURE: No abnormality. ROSE: No mass or pathologic adenopathy. MEDIASTINUM: No mass or pathologic adenopathy. CARDIAC: Atherosclerotic coronary artery disease. No pericardial effusion. AORTA: No aneurysm or dissection. CHEST WALL: No mass or axillary adenopathy BONES: No bone lesion or fracture. LIMITED ABDOMEN: No suspicious findings. Limited images of the upper abdomen. OTHER: Negative. IMPRESSION: 1. Lung-RADS Category 1 Negative. No nodules and definitely benign nodules. Continue annual screening with LDCT in 12 months. Electronically authenticated by: JEAN MOONEY Date: 2022-11-17 14:47 Normal [facility] Coding Summary.on 11-17-2022 Coding Summary. CD:[id number] Gh0bWw+PGhlYWQ+PE1FV RYzC26dbRZweT4LH6zDF J4MXPTSKIMHLJ5CSJ3zk KV2BIthD1RyaiAm PrdpaWObXG98CCg2XCD9 nTxwBTrdoY3ntTBzD1d1 KeNkUT88zC18YFbnQSXp CqG2SxCzrvshkFVz Q6kbTfCrvUUhTdq+PHRh YmxlIHdpZHRoPScxMDAl MuFkfDxqMD2vDb1fUHJw LWNvbGxhcHNlOiBj y6vfZXJoMIzzFO6scOqw G6ZtnIO2ULPaw2f2Do19 dHI+GMJyMRK0wLxqJTda q751JaLnr3qgRSI5 cBLdIDitXLS0L75fh6V0 KBVvFCYvYZT2uJH1mE3r rVejmeefT8MhaXPrMgX9 ENO7kNYsgU1qvJqe jgozpL4jKuc+Y59XWV6R WKBONN6DEpg7E2MgSyzo dHI+CC54NRFoBD88rRTv fUHxu7dwbRb7PnMm BUPqTGU4tCvrXCdxw8Dm AWRpV59khBQpl9A9HDRt fGccxANaClFpgXP6sD6p PYwhirdaa1gzfeln Atiar5orai63pX52Y89j ZSifCCJkQDA0JZSbFNOx hUxrkv3ppM5gZt7+IDxj i7qta2ardBz7AoOd HIBgdcGufMuiCSD5j9Js My20V6NlsNkrz4GnGbh3 sl46ePZsm1I8xQH2WPbw TMCotL0xSMmrIuB4 XKEhGjViyA97iAQiZNqm Al6sjOrmlXxoQH5iLQUj oesqPJVliY3oPQMuvSDh fSauUZ0bIHQqmptu d337SxPrJUQ6YZCzcDTt V4YzsM0bFyUtBQCkWYAy B3HywITwDYwzN417ERpu AhN7OCKhhoWjT4Zx LMYoxQbfRyR7g3J8Mr3Y j7FgrdapHMU1BDxgGRUm EuV5MpFiFrB5U1GrGzk2 VTLknItuEG1rO5Va JOJbykahakkwyBD4AGHl BAZenK14zRItYFscYk5c g8Y8d559CYCnNRTedI96 Wz9cyGuvTYHwoIAZ bV7dxlrrh8zcyahcWkJw FJCnYVe0YMv8JSXvsLav SvYfJIV9CbB4AYH8bPVc uT1bmAvjhlcluR6t Oyc+B51iyU8rUSK8RXW3 bjzmVFNjypZiUA60SW83 W9GoBvoysJOldYM+PGRp mjMkpGklHK8yKxQs p6uso4QbVCzuX8DrPAPw SCmdVaj2SQHzGEC4tVB2 sZ4ePXVuMUnpg7D2xYR3 K0WgkqIddc7yx4of QRFbJFgyM62vzVDbs6B8 MMPqwVH0LWXagQtbKpGw sY58Pyj+ZNYxrIgms6Hk Egzev7vlg9yfbEn7 IjMwJSIgdmFsaWduPSJ0 k5YsSn11Z60tCXuyNJWy XJNkSFIgRCVodQimkp6q bY4qYx8+PGNvbCB3 sAH6lM2eTHNiLxT8UDoh C924OsBofSLlJquqn5rb v1dzyLo9XkNmFPPgnrPp qYmzHIU0e7UiVm81 K91hARrtHKHmYROdHPQb IWVrkFadci8vpC7cQi7+ BC0vw6jkbu41sS16aWP+ EGTpEJL8uNftMAsp RWDiiP6uNBqbHyP0KWRk OuRjbA10cGExXKbeCo1o pMepvSmvDW6vYIBxnxxp u684JlGtj1amUNXo tSOrANscNND7U10sy9A6 RMRzSYZvQMO5bZC8kQ6m bGlnbjogbGVmdDsgdmVy gHpjWOthWEmeE986 IHRvcDsnPlBhdGllbnQg GyGfJQx5Q8QkPbp9TDDo fKqeUH8dzZIfOOhkEd3v gEmmdEsfZK0mFZRj plpoj586NjXsc6tbXKJc sVTmESweFYE6U79pp2B9 PRMgPAOeTQQ1uKH2cE4g bGlnbjogbGVmdDsg yvNuaLfcSGsuVJmpB996 IHRvcDsnPkJpcnRoIERh rWK1KR24EV04uDYbu9Y1 rZH0Z4PaLRZtrcks zdxxvNV9SCUoJVRmkC47 Dw1hqAniIe1uNZUiGHU9 LDZoyPDvS9MfjU1hTyUh WTApFIFnX6InzJOi ZBvkP824BOmqSrY0LKDg rtNcN0YqBQJzwSxhAtD6 s1Y1Mp4QA1C3YH02DN84 jXUkq3D4vHU2M7Ky KPShqoasuaraxIY1WLOe XPTqeL80Ie0klQevXn2t QZUmZZY8RVZmjWLlH7Qw hH4bItGsRNAkRFDf Z7YegQMrXRvbN782UYhh OnS7UXIlvbBlL9EqFAUq lAfnQlD9z3P2Ja8EEWr0 GD69VF15mZWeu6S6 kOH6X3NbYBAqypresbfo eEV7MOVtFAQybQ18Ac3u uFdnWv9oULLmSOM0HRUf lNDfI3FnwO8bFbNh IDGuAIDvB7RsmRVkZWbs M964ZDjlItV7POOtokGn M9AnLBRupUkcBaI3j0Y9 Li8GSOYsSM03BHI1 qDQ9FC58RB00I3HmMlax dGFibGU+PHRhYmxlIHdp ZHRoPScxMDAlJyBzdHls FL6dZo7jWTKvGQDh xQhfhPLuEsSrh9mqGIEi RXhcNM8xmWirA7GxwBG4 GOMtr4o3Mo74V03vA4Ny dXA+HYBzjAH3mDC7 sJ6yNeKjPuM9BGrgQ639 JmUkjLZjYadgd7jaq0xi aAf5ZyZ0MLPmmrLwsKfw ONY6i2TdPp43B17x IHdpZHRoPSIxNSUiIHZh mOaqje3omM2vAn1+PGNv mKN0wVS4iM0jUpAvQiY9 ANqwX463HdMewEKh Figvy2ora5prgLf5DwCa PKLhyhTbfXvfZFE8y4Uh Im48K1MbaBdpj9NwUce6 lq56hFWgp9K5oRB5 D0QrAXBvsctoaBRwoGwz QR2mFXEcnrizDFLdqO6j EPOoY3r7OpTfXkK2VEld O1CbreS4XZFlmGIj COfiUXR1M39se2C7WLZk CEQwVXO5cKC4tN1ydKhp bjogbGVmdDsgdmVydGlj AQkfHAmrN942LSWy mQloAYZvjD3sEOOgdYPq kCpcYO9wUWQunbrtEf4T QZYSNmwwGNNFT0bLTG58 GR16tRIrb3Z0cCC7 B4KpDPHuzucgikbxmKT0 HGViCUZejF54xMNsNRkk Ay1vd8T8u016PAVcZNUb uC15Ci7cmQjnQUKv cJXOzI6gpchkk8fuhhbp FzJiPJDhUBf7NEj0SYTd cLmwDfPgRIR2BwL8RSF3 fXQlaS7sgMapqrtv lF8kUmc+MDkvMzAvMTk1 MDwvdGQ+WGPrYCW0fRhz RNrqSLPzeA7jWUXiR8e9 HsVmLoB9RDjyK8Bw XHPfoydiQc13vV5eUdBm UbV1ABlwV0XqnwQ8XSOq nFBpGHhxKAM9F97az1X5 LOEeVVIiUDN8iPV7 yO0peDkmxvpheEOjzErd zeHcyCbwIKkvLIigG022 IHRvcDsnPjcyIFllYXJz KI24HY12mGNnc4R4 xLG4A3JjDSCulkwdrtha pCT3BFSqXLUudN61tGZm AOugLh6oi1L8k614URZh LJXhnG79Rf2ykSrk JNLehACHsF8moqvqh8sd pyooDuTeNPYbBRc1CRd4 XNJycBpnEcJvJEW0HhV2 GFV3xHOweN0pvIwz trdckU8uHbd+RmVtYWxl LB51GB35zCUaf1I9sZM4 M2OdHKHawzxttzpffRS7 MURdRROxzM60yEXb BCgbFt7yb9T9p043VBFs BZWkjE54Zy4yzUtiIODf dEGHmY7daxdbk9yjrtzh BjAaQCVkZHq6MCl7 CDWfgDneJxOxKLG7XsW4 ZTR2hSIcnX9yeAbaqise lX9wFfi+XVFbJMMrx6Xu k9TuYD44RZ51G6Re PjwvdGFibGU+PHRhYmxl IHdpZHRoPScxMDAlJyBz bWrfCD5cLp5xRIYaZRMk yHxhlKOjFqDtt4mm CITtKXehVF6hrUggN0Xp uHW8OVJnt0k7Ms76L38k P7AlgYY+KUJmeLV7hMZ5 iU8sZxYgXmK8PBfd V607JdUbcJLrVjygw6wr w3jqxVt8WtOzMFPorcGp sEdrPRN8r7ZoOg12B29d IHdpZHRoPSIyMCUi OSQilOskcu3blE5gPj9+ RJDqhHF5iOS7iX4bYgVa YjH2TYfpN967UfObkFBl FbcnU33vN6EizXE+ PDEbDtl8IRLosMyvQX5s aBHqVUxzOg1mIGP6FsLc VdDxAStpY9MsSUKfekra rmikoZB3HJGhMSSe dC72Qi4urEppHo9kBMJi FQJ7LAUeqZSwS3BqsK9y ZoLfAEJsVGMwT1OjpOMm PIqoA564OPnyXdC2 ZBNvecGyA5FxWEVswQmt FfM2m2X9Ed4XgHhdaZSz KL1rSxTqPHw1G9EhCnp6 GJPbaDwtTN0orDNx LEjbMc4tgByxpSskUG5f AFMxppbwm711UmCgv0cg MVVqcEWnRPubSMD5L92j p0Q7NVZcANLzNTN6 vAJ3cR0dhQvomzxhbYId dDsgdmVydGljYWwtYWxp I957DMOorTfuVzVHAsz0 C7PiLvs1EXZetFnv PP1sxXDpFTjhVi7uhBdj rIlhBG8rYPSrvxzbq996 GuLfw6ifFYCsiADhRUhw ZRY8U70gd9J7GLYy XMVjZAK2xUK5dS1nnBbv bjogbGVmdDsgdmVydGlj HUipJDvaA890TGAmrVdx Bd2WRfd1P8MzAcj5 QCHqwDafCQ1okORiPXad Ta7cuIdjmAqdIQ2pJYVg vclnu530LpRue1tpNHSa yCYzBBslGYL4G37t m8A7FGSsWQVoMYW9tYD0 mY5rwGfkdjonoZWboOkk yiIkgOrwSBliHKdmO599 IHRvcDsnPlBheWVy OjwvdGQ+WF88tx78R4Js YxgsDlt6QSRfBDN8kSC3 mB5lYWNiGLupo0J9tYJ1 U1SvwtItnf8oc3mw YXBz (more content not included)... Normal [facility] Blood Gas Art, with LyBarb queen maria tAdinon 11-11-2022 a/A Ratio Art 72.90 % Normal >=0.80 [facility] Comment on above: Performed By: #### 4 [id number] #### [facility] [address] [place] [address] AaDO2 Art 24.8 mmHg High 5.0-15.0 [facility] Comment on above: Performed By: #### 4 [id number] #### [facility] [address] [place] [address] Allens Test Positive Normal [facility] Comment on above: Performed By: #### 4 [id number] #### [facility] [address] [place] [address] Base Excess Arterial 4.8 mmol/L Normal >=2.8 [facility] Comment on above: Performed By: #### 4 [id number] #### [facility] [address] [place] [address] cCa2+ Art 4.72 mg/dL Normal 4.40-5.30 [facility] Comment on above: Performed By: #### 4 [id number] #### [facility] [address] [place] [address] cCl- Art 105.0 mmol/L Normal 101.0-111.0 [facility] Comment on above: Performed By: #### 4 [id number] #### [facility] [address] [place] [address] cGlu Art 125 mg/dL High 55-99 [facility] Comment on above: Performed By: #### 4 [id number] #### [facility] [address] [place] [address] cK+ Art 4.0 mmol/L Normal 3.5-5.3 [facility] Comment on above: Performed By: #### 4 [id number] #### [facility] [address] [place] [address] cLac Art 1.1 mmol/L Normal .5-2.2 [facility] Comment on above: Performed By: #### 4 [id number] #### [facility] [address] [place] [address] outsole flexer+ Art 143.0 mmol/L Normal 135.0-145.0 [facility] Comment on above: Performed By: #### 4 [id number] #### [facility] [address] [place] [address] Drawn by [employer]MIL[employer] Invalid Interpretation Code [facility] Comment on above: Performed By: #### 4 [id number] #### [facility] [address] [place] [address] FCOHb Art 1.1 % Low 1.5-4.9 [facility] Comment on above: Result Comment: Refe rence range Nonsmoker <1.5% Smoker <5.0% Heavy Smoker <9.0% Performed By: #### 4 [id number] #### [facility] [address] [place] [address] FIO2 BG 21 Invalid Interpretation Code [facility] Comment on above: Performed By: #### 4 [id number] #### [facility] [address] [place] [address] FMetHb Art 0.3 % Normal 0.0-1.9 [facility] Comment on above: Performed By: #### 4 [id number] #### [facility] [address] [place] [address] FO2Hb Art 93.3 % Normal 92.0-100.0 [facility] Comment on above: Performed By: #### 4 [id number] #### [facility] [address] [place] [address] HCO3 (Bld) [Moles/Vol] 28.7 mmol/L High 22.0-26.0 [facility] Comment on above: Performed By: #### 4 [id number] #### [facility] [address] [place] [address] Hemoglobin (Bld) [Mass/Vol] 13.5 g/dL Normal 12.0-16.0 [facility] Comment on above: Performed By: #### 4 [id number] #### [facility] [address] [place] [address] Oxygen saturation in Blood 94.6 % Low 95.0-100.0 [facility] Comment on above: Performed By: #### 4 [id number] #### [facility] [address] [place] [address] P CO2 Arterial 46.1 mmHg High 35.0-45.0 [facility] Comment on above: Performed By: #### 4 [id number] #### [facility] [address] [place] [address] P O2 Arterial 66.9 mmHg Low 80.0-100.0 [facility] Comment on above: Performed By: #### 4 [id number] #### [facility] [address] [place] [address] pH Arterial 7.423 Normal 7.350-7.450 [facility] Comment on above: Performed By: #### 4 [id number] #### [facility] [address] [place] [address] Sample Site R Radial Normal [facility] Comment on above: Performed By: #### 4 [id number] #### [facility] [address] [place] [address] Sample Type Arterial Draw Normal [facility] Comment on above: Performed By: #### 4 [id number] #### [facility] [address] [place], [place] [id number] CARDIAC STRESS TESTon 2022 CARDIAC STRESS TEST CARDIAC STRESS TEST NOTE DATE: 11/11/2022 SIX MINUTE WALK STUDY INDICATION: Chronic hypoxic respiratory failure. Six minute walk study was initiated according to standard protocol. Baseline blood pressure was 140/80, heart rate 58, saturation 98% on room air, Saadia Score 0.5, MMRC is 1. Six minute walk study was initiated. She ambulated for 338 meters at the end of six months. Lowest oxygen saturation was 94%. Saadia Score was 3. In recovery, blood pressure was 154/82, heart rate 64, saturation 99% on room air. At 338 meters, this is 105% predicted walk distance. IMPRESSIONS: No ambulatory desaturation. Excellent walk distance. RECOMMENDATIONS: Patient does not qualify for ambulatory oxygen. Clinical correlation required. Normal [facility] HEMOGLOBINon 11-11-2022 Hemoglobin (Bld) [Mass/Vol] 13.1 g/dL Normal 12.0-16.0 [facility] Comment on above: Performed By: #### P OCGLUC #### [facility] [address] [address] [address] Demetrio Kan LAB TESTINGon 11-11-2022 RECV HEADER SEE SCANNED REPORT IN HPF [facility] Comment on above: Performed By: #### M ISC ####[facility] [address] [address]Dr. Demetrio Kan REV FROM REF LAB 11/11/2022 [facility] Comment on above: Performed By: #### M ISC ####[facility] [address] [place], [place] [address]Ju. Carolynejosé miguel Kan SENT TO REF LAB 11/11/2022 [facility] Comment on above: Performed By: #### M ISC ####[facility] [address] [address]Dr. Demetrio Lucius Physician Orderon 11-11-2022 Physician Order [id number] [id number]:127 Normal [facility] Vital Signs Date Time Vital Sign Value Performing Clinician Facility 10-18-2023 13:13-0500 Body mass index (BMI) [Ratio] 21.64 kg/m2 Tasha Padgett MD Work Phone: [facility] 10-18-2023 13:13-0500 Body weight 50.26 kg Tasha Padgett MD Work Phone: [facility] 10-18-2023 13:13-0500 Diastolic blood pressure 56 mm[Hg] Tasha Padgett MD Work Phone: [facility] 10-18-2023 13:13-0500 Systolic blood pressure 108 mm[Hg] [facility] 08-03-2023 11:00-0400 Body height Lazara Hernandez Other [employer] Other 08-03-2023 11:00-0400 Body mass index (BMI) [Ratio] 20.89 kg/m2 Lazara Hernandez Other [employer] Other 08-03-2023 11:00-0400 Body weight 48.54 kg Lazara Mary Other [employer] Other 08-03-2023 11:00-0400 Diastolic blood pressure 64 mm[Hg] Lazara Mary Other [employer] Other 08-03-2023 11:00-0400 SaO2% (BldA) [Mass fraction] 98 % Lazara Mary Other [employer] Other 08-03-2023 11:00-0400 Systolic blood pressure 115 mm[Hg] Lazara Mary Other [employer] Other Encounters Encounter Date Encounter Type Care Provider Facility Start: 10-18-2023 End: 10-18-2023 ambulatory TASHA PADGETT [facility] Start: 10-18-2023 End: 10-18-2023 Office outpatient visit 15 minutes Tasha Padgett MD Work Phone: [facility] Comment on above: Midline cystocele (P rimary Dx) Start: 08-08-2023 End: 08-08-2023 ambulatory Lazara Hernandez Other [employer] Other Start: 08-08-2023 Telephone encounter Lazara Katalina her [facility] Start: 08-03-2023 End: 08-03-2023 ambulatory Lazara eHrnandez Other [employer] Other Start: 08-03-2023 Office outpatient ne w 30 minutes Lazara Hernandez [facility] Start: 01-11-2023 End: 01-12-2023 ambulatory NAGA VENTURA . Facility: Start: 12-29-2022 End: 12-31-2022 Evaluation and management of inpatient DR WESLEY VALDIVIA Facility: Start: 11-17-2022 End: 11-18-2022 ambulatory NAGA VENTURA . Facility: Start: 11-11-2022 End: 11-12-2022 ambulatory NAGA VENTURA Facility:[facility] Start: 11-11-2022 End: 11-12-2022 ambulatory NAGA VENTURA . Facility: Start: 01-24-2018 End: 09-08-2020 Patient encounter status Tasha Padgett MD Work Phone: [facility] Work Phone: Procedures Date Procedure Procedure Detail Performing Clinician Start: 10-28-2021 Adult depression screening assessment Tasha Padgett MD Work Phone: History of placement of stent for coronary artery disease Lazara Mary Other Plan of Treatment Date Care Activity Detail Author Start: 10-18-2024 Adult BMI Screening Adult BMI Screen ing [facility] Start: 10-18-2024 Tobacco Screening Tobacco Screening [facility] Start: 01-30-2024 End: 01-30-2024 Patient encounter procedure 01/30/2024 1:00 PM EDT Office Visit [facility] [address] [place] [id number] Jose Gallo, PARTY COORDINATOR-[employer] [address], [address] [address] [facility] Start: 01-24-2024 End: 01-24-2024 Patient encounter procedure [facility] Start: 01-17-2024 End: 01-17-2024 Patient encounter procedure 01/17/2024 1:00 PM EDT Office Visit [facility] [address] [place] [id number] Tasha Padgett MD [address] [place], [place] [id number] [facility] Start: 10-28-2022 Depression Screening Depression Scre ening [facility] Start: 2015 Fall Risk Screening Fall Risk Screen ing [facility] Start: 1969 DTaP,Tdap and Td Vaccines (1 - Tdap) DTaP,Tdap and Td Vaccines (1 - Tdap) [facility] Start: 1950 Medicare Annual Wellness Visit Medicare Annual Wellness Visit [facility] Start: 1950 Tobacco Counseling Tobacco Counselin g [facility] Immunizations Immunization Date Immunization Notes Care Provider Fa cility 06-26-2016 influenza, high dose seasonal, preservative-free Tasha Padgett MD Work Phone: [facility] 09-10-2015 influenza, seasonal, injectable Tasha Padgett MD Work Phone: [facility] 09-10-2015 pneumococcal conjuga te vaccine, 13 valent Tasha Padgett MD Work Phone: [facility] Payers Date Payer Category Payer Unknown [employer] [id number] 2021-Present [phone] [address] [place] [address] [id number] 2015 Medicare MEDICARE MEDICAR E PART A & B [id number] 2015-Present [phone] [address] [place] [address] [id number] 1959 Medicare [id number] 1959 Unknown [id number] 1950 Unknown [id number] 1950 Unknown [id number] 1950 Unknown [id number] 1950 Unknown [id number] 1950 Unknown [id number] 1950 Unknown [id number] 6 Social History Date Type Detail Facility Unknown if ever smoked [employer] Other Start: 11-13-2020 End: 10-18-2023 Sex Assigned At [facility] Start: 04-18-2023 Tobacco smoking stat [facility] Occasional tobacco smoker [facility] End: 10-03-2022 History of tobacco use Cigarette Smoker [facility] Start: 11-13-2020 End: 04-18-2023 Cigarettes smoked current (pack per day) - Reported 1.5 [facility] Start: 04-18-2023 Tobacco use and exposure Smokeless tobacco non-user [facility] Start: 10-18-2023 Alcohol intake 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 DENIES ANY ISSUES OR PMB OB History 2 Para 2 Term 2 AB Living 2 SAB IAB Ectopic Multiple Live Births 2 FAMILY HX Family History Problem Relation Age of Onset Heart attack Mother Heart attack Father Breast cancer Maternal Aunt Review of Systems A comprehensive review of systems was negative. Physical Exam BP 108/56 Wt 50.3 kg (110 lb 12.8 oz) BMI 21.64 kg/m General: alert and oriented x 3 Vulva: External genitalia within normal limits. No HPV, no lesions, no obvious dysplastic changes Vagina: Well supported, no discharge, no lesions, second degree rectocele, second-third degree cyctocele, uterine prolapse second-third degree, and mucosal atrophy Cervix: Clear, without discharge, gross lesions, no motion tenderness and absent Uterus: normal size, without irregular mass, no prolapse, nontender, freely mobile and surgically absent Adnexa: no mass, fullness, tenderness Pessary removed, cleaned, inspected and replaced. Patient tolerated procedure. Assessment PELVIC PROLAPSE GOOD TRESULT W DONUT PESSARY Plan ROUTINE MAINTENANCE Q 3-6 MOS TASHA PADGETT MD documented in this encounter [facility] Evaluation note 08-03-2023 Note Date & Type Note Facility 08-03-2023 Evaluation note Encounter Date Diagnosis Assessment Notes Aug, Controlled type 2 diabetes mellitus without complication, without long-term current use of insulin (ICD-10 - E11.9) Due for labs. Unsure of when last A1c was completed. Prior to your visit today we reviewed your chart and outlined the testing and treatment needed for your care. We discussed possible complications of diabetes including risk of heart disease, stroke, and kidney disease. Your goal is to keep uou HgA1C below 7 (preferably <6.5) and your blood pressure less than 130/85 (and preferably < 120/80) and mataining a healthy weight with a BMI less than 26. We are working together to acheive these goals with the following plan; healthier diet, understanding your medications, and your compliance. Barriers to these goals have been discussed. You have been given educational handouts. Aug, Mixed hyperlipidemia (ICD-10 - E78.2) Due for labs. Aug, Restless leg syndrome (ICD-10 - G25.81) Controlled on current regimen. Denies any side effects. Aug, Essential hypertension (ICD-10 - I10) Aug, Simple chronic bronchitis (ICD-10 - J41.0) COPD symptoms remain unchanged at this time. No recent flare up, controlled on current medication. Patient should continue with the above and we will continue to monitor. Pay attention to any changes in shortness of breath such as patterns or other associated symptoms Continue to follow with Dr Ventura for management. Prior to your visit today we reviewed your chart and outlined the testing and treatment needed for your care. We discussed the possible complications of COPD , including increased risk for acute exacerbation and respiratory failure. Our goal is to keep your COPD under control to avoid exacerbation and hospitalization s. maintain a healthy weight with a BMI less than 26. We are working together to achieve these goals with the following plan; healthier diet, increased activity and exercise, understanding your medications and your compliance, Aug, Panlobular emphysema (ICD-10 - J43.1) Aug, History of heart artery stent (ICD-10 - Z95.5) Continues to follow with Cardiology --Lelo Johnson. Aug, Atherosclerotic cardiovascular disease (ICD-10 - I25.10) Aug, Cigarette nicotine dependence without complication (ICD-10 - F17.210) We discussed possible complications of smoking including risk of heart disease, stroke, lung disease, and increase risk of cancer. Your goal is to quit smoking. The availability, risks, and benefits of medication used to treat nicotine addiction as releveant to you have been discussed. We are working together to achieve these goals with the following plan; barriers to these goals have been discussed. You have been given relevant education handouts and a summary of your care plan. Your next follow-up visit for this problem is six months, we will continue to ask progress for quitting and willingness to quit at each appointment. [employer] Other Evaluation note Note Date & Type Note Facility Evaluation note No Information [facility] Other Evaluation note Note Date & Type Note Facility Evaluation note Diagnosis Midline cystocele- Primary Cystocele, midline [facility] general Narrative - Reported Note Date & Type Note Facility History general Narrative - Reported Type Medical History diabetic Medical History hypertension Medical History heart attack Surgical History breast biopsy Surgical History stents x2 2012 Hospitalization History see surgical hx [employer] Other Instructions Note Date & Type Note Facility Instructions Not on filedocumented in this en counter [facility] Summary Purpose Family History No Family History Records FoundNo Family History Records FoundNo Family History Records Found Advance Directives No Advanced Directives Records FoundLatest Code Status on File Code Status Date Activated Date Inactivated Comments Full Code 12/19/2022 5:46 AM 12/19/2022 7:11 PM Code Status History Code Status Date Activated Date Inactivated Comments Full Code 10/04/2022 10:48 AM 10/05/2022 9:46 PM Additional Source Comments INFORMATION SOURCE (unrecogn ized section and content) DATE CREATED AUTHOR 11/18/2022 [facility] DATE CREATED AUTHOR AUTHOR'S ORGANIZ ATION 01/17/2023 [facility] DATE CREATED AUTHOR AUTHOR'S ORGANIZ ATION 10/20/2023 [facility] REASON FOR VISIT (unrecogniz ed section and content) Reason Comments Pessary; cleaning Care Teams (unrecognized sec tion and content) 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 This clinical summary was aggregated from multiple sources. Caution should be exercised in using it in the provision of clinical care. This summary normalizes information from multiple sources, and as a consequence, information in this document may materially change the coding, format and clinical context of patient data. In addition, data may be omitted in some cases. CLINICAL DECISIONS SHOULD BE BASED ON THE PRIMARY CLINICAL RECORDS. [facility]. provides no warranty or guarantee of the accuracy or completeness of information in this document.
== END 2023-11-18 12:50 | disposition home or self-care (01) ==
LOC: CT 12:49
PROVIDERS: PCP Nurse Practitioner Family; Visit Provider Internal Medicine
DX: Z87.891 Personal history of nicotine dependence (principal)
CPT/HCPCS: 71271

== ENCOUNTER 2024-02-08 12:03 | Outpatient (OUT) | payer MEDICARE, OTHER, MEDICAID, SELFPAY ==
[2024-02-08 13:12] LABS: Alanine Aminotransferase 32 U/L (14-59); Albumin Level 3.3 g/dL (3.4-5.0); Alkaline Phosphatase 119 U/L (46-116); Aspartate Amino Transferase 20 U/L (15-37); BUN Creatinine Ratio 22.8; Bilirubin Total 0.7 mg/dL (0.2-1.0); Calcium 9.5 mg/dL (8.5-10.1); Carbon Dioxide 30.9 mmol/L (21.0-32.0); Chloride 105 mmol/L (98-107); Estimated GFR (African America >60 (>=60); Estimated GFR (Non-African Ame 60 (>=60); Globulin 3.3 g/dL; Glucose 110 mg/dL (74-106); Magnesium 1.8 mg/dL (1.8-2.4); Potassium 3.9 mmol/L (3.5-5.1); Sodium 142 mmol/L (136-145); Total Protein 6.6 g/dL (6.4-8.2)
== END 2024-02-08 12:04 | disposition home or self-care (01) ==
LOC: LAB 12:05
PROVIDERS: PCP Nurse Practitioner Family; Visit Provider Nurse Practitioner Family
DX: R25.2 Cramp and spasm (principal)
CPT/HCPCS: 36415; 80053; 83735

== ENCOUNTER 2024-02-29 12:29 | Outpatient (OUT) | payer MEDICARE, OTHER, MEDICAID, SELFPAY ==
--- NOTE | 2024-02-29 12:35 | XR_ITS ---
[address] [address] Patient Name: TRAN RAYA MRN: [id number] date: 1950 Sex: F Assigned Patient Location: [facility] Current Patient Location: [facility] Accession/Order Number: [id number] Exam Date: 02/29/2024 12:50 Report Date: 02/29/2024 13:29 At the request of: ASIM BANGURA Procedure: XR DEXA axial skeleton EXAMINATION: XR DEXA axial skeleton, 02/29/2024 12:50 PM EDT HISTORY: Postmenopausal state Z78.0 COMPARISON: None. TECHNIQUE: Dual-energy X-ray absorptiometry (DEXA) bone density study performed for the axial skeleton. HISTORY: Postmenopausal state Z78.0 FINDINGS: Bone mineral density AP spine L2-L4 measures 0.833 g/sq cm. T score -3.1. WHO classification: Osteoporosis. Lowest bone mineral densities in the left femoral trochanter measuring 0.531 g/sq cm. T score -3.8. WHO classification: Osteoporosis XR/XR DEXA axial skeleton IMPRESSION: Osteoporosis. High fracture risk Electronically authenticated by: DEVORAH MOTA Date: 02/29/2024 13:29
--- OUTSIDE RECORDS SUMMARY | 2024-02-29 12:43 | XMS_ITS ---
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 Role Phone SAMSA, NAGA P Attending Unavailable SAMSA, NAGA P Admitting Unavailable SAMSA ., NAGA Admitting Unavailable SAMSA ., NAGA Attending Unavailable HOUSE, DR DELA CRUZ Primary Care Unavailable Jean Mooney Consulting Unavailable SAMSA ., NAGA Consulting Unavailable SAMSA ., NAGA Admitting Unavailable SAMSA ., NAGA Attending Unavailable HOUSE, DR DELA CRUZ Primary Care Unavailable SAMSA ., NAGA Consulting Unavailable SAMSA ., NAGA Admitting Unavailable SAMSA ., NAGA Attending Unavailable HOUSE, DR DELA CRUZ Primary Care Unavailable SAMSA ., NAGA Consulting Unavailable HOUSE, DR DELA CRUZ Primary Care Unavailable FAWWAD, BHAT H Admitting Unavailable FAWWAD, BHAT H Attending Unavailable SAMSA ., NAGA Consulting Unavailable GAIL SCHAEFER Consulting Unavailable NOLAN ., POONAM Consulting Unavailable FAWWAD, BHAT H Consulting Unavailable ARMAND PATEL Consulting Unavailable SISTER, MICHAEL Consulting Unavailable JOCY MUÑOZ Consulting Unavailable Lazara Hernandez Unavailable Wesley Valdivia DO Primary Care Provider TASHA PADGETT Referring Unavailable HOUSE, WESLEY De Los Santos Primary Care Unavailable MICHELLE CHIN Referring Unavailable HOUSE, WESLEY De Los Santos Primary Care Unavailable TASHA PADGETT Attending Unavailable HOUSE, WESLEY De Los Santos Referring Unavailable HOUSE, WESLEY De Los Santos Primary Care Unavailable LIBERTY RAMÍREZ Attending Unavailable HOUSE, WESLEY De Los Santos Referring Unavailable HOUSE, WESLEY De Los Santos Primary Care Unavailable TASHA PADGETT Attending Unavailable HOUSE, WESLEY De Los Santos Referring Unavailable HOUSE, WESLEY P Primary Care Unavailable Allergies Allergy Classification Reported Allergen(s) Allergy Type Date of Onset Reaction(s) Facility (1 source) Ticagrelor Drug Allergy 12-29-2012 [facility] Repository (4 sources) Ticagrelor; Translations: [TICAGRELOR] Drug Allergy 11-19-2016 [facility] Encounters Encounter Date Encounter Type Care Provider Facility Start: 02-08-2024 End: 02-08-2024 ambulatory [facility] Work Phone: Start: 02-08-2024 End: 02-08-2024 Patient encounter procedure [facility] Physician [facility] Work Phone: Start: 01-30-2024 End: 01-30-2024 ambulatory LIBERTY Randa [facility] Start: 01-24-2024 End: 01-25-2024 ambulatory MICHELLE Womack [facility] Start: 01-17-2024 End: 01-17-2024 ambulatory [facility] Start: 01-17-2024 End: 01-18-2024 ambulatory [facility] Start: 10-18-2023 End: 10-18-2023 ambulatory [facility] Start: 10-18-2023 End: 10-18-2023 Office outpatient visit 15 minutes Tasha Padgett MD Work Phone: [facility] Comment on above: Midline cystocele (P rimary Dx) Start: 08-08-2023 End: 08-08-2023 ambulatory Lazara Hernandez Other [facility] Other Start: 08-08-2023 Telephone encounter Lazara Darden her [facility] Start: 08-03-2023 End: 08-03-2023 ambulatory Lazara Hernandez Other [facility] Other Start: 08-03-2023 Office outpatient ne w 30 minutes Lazara Hernandez [facility] Start: 01-11-2023 End: 01-12-2023 ambulatory NAGA VENTURA . Facility: Start: 12-29-2022 End: 12-31-2022 Evaluation and management of inpatient DR WESLEY VALDIVIA Facility: Start: 11-17-2022 End: 11-18-2022 ambulatory NAGA VENTURA . Facility: Start: 11-11-2022 End: 11-12-2022 ambulatory NAGA VENTURA Facility:[facility] Start: 11-11-2022 End: 11-12-2022 ambulatory NAGA VENTURA . Facility: Start: 01-24-2018 End: 09-08-2020 Patient encounter status Tasha Padgett MD Work Phone[facility] Work Phone: Immunizations Immunization Date Immunization Notes Care Provider Fa cili 06-26-2016 influenza, high dose seasonal, preservative-free Tasha Padgett MD Work Phone: [facility] 09-10-2015 influenza, seasonal, injectable Tasha Padgett MD Work Phone: [facility] 09-10-2015 pneumococcal conjuga te vaccine, 13 valent Tasha Padgett MD Work Phone: [facility] Medications Current Medications Medication Drug Class(es) Dates [...] 12/19/2022 Active atorvastatin 80 mg oral tablet (4 sources) HMG-CoA Reductase Inhibitor Start: 01-30-2024 take 80 mg by mouth once daily Atorvastatin Active 80 MG PO Daily January 30, 2024 12:00am Start: 02-25-2023 take 1 tablet by jarret th in the morning atorvastatin (LIPITOR) 80 mg tablet Indications: Mixed hyperlipidemia , PAD (peripheral artery disease) (CMS-HCC) , Atherosclerotic PVD with intermittent claudication (CMS-HCC) Take 1 tablet (80 mg total) by mouth in the morning. 90 tablet 3 02/25/2023 Active 120 actuat budesonide 0.16 mg/actuat / formoterol fumarate 0.0048 mg/actuat / glycopyrrolate 0.009 mg/actuat metered dose inhaler (3 sources) Corticosteroid, beta2-Adrenergic Agonist Start: 01-30-2024 take 1 puff(s) by inhalation twice daily Cxwpymiqqn-Vkeivdin-Wyabwdpeqi Active 2 PUFF INHALATION Twice daily January 30, 2024 12:00am take 2 puff(s) by inhalation twi ce daily Breztri Aerosphere 160-9-4.8 MCG/ACT 2 puffs Inhalation Twice a day Active furosemide 20 mg oral tablet (4 sources) Loop Diuretic Start: 01-30-2024 take 20 mg by mouth once daily Furosemide Active 20 MG PO Daily January 30, 2024 12:00am Start: 02-07-2023 take 1 tablet by jarret th once daily furosemide (LASIX) 20 mg tablet Take 1 tablet (20 mg total) by mouth daily. 90 tablet 3 02/07/2023 Active lidocaine 25 mg/ml / prilocaine 25 mg/ml topical cream (1 source) Antiarrhythmic, Amide Local Anesthetic Start: 02-07-2023 lidocaine-prilocaine (EMLA) cream 1 Application lisinopril 5 mg oral tablet (4 sources) Angiotensin Converting Enzyme Inhibitor Start: 01-30-2024 take 5 mg by mouth once daily Lisinopril Active 5 MG PO Daily January 30, 2024 12:00am Start: 02-07-2023 take 1 tablet by jarret th in the morning lisinopriL (PRINIVIL,ZESTRIL) 5 mg tablet Take 1 tablet (5 mg total) by mouth in the morning. 90 tablet 3 02/07/2023 Active metFORMIN hydrochloride 500 mg oral tablet (4 sources) Biguanide Start: 01-30-2024 take 500 mg by mouth twice daily Metformin Active 500 MG PO Twice daily January 30, 2024 12:00am Start: 10-26-2016 take 1 tablet by jarret th in the morning, then take 1 tablet by mouth at mealtime metFORMIN (GLUCOPHAGE) 500 mg tablet Take 1 tablet (500 mg total) by mouth in the morning and 1 tablet (500 mg total) in the evening. Take with meals. 0 10/26/2016 Active 12 hr ranolazine 500 mg extended release oral tablet (4 sources) Anti-anginal Start: 01-30-2024 take 500 mg by mouth twice daily Ranolazine Active 500 MG PO Twice daily January 30, 2024 12:00am Start: 02-17-2023 take 1 tablet by jarret th every twelve hours in the morning, then take 1 tablet by mouth at bedtime ranolazine (RANEXA) 500 mg 12 hr tablet Take 1 tablet (500 mg total) by mouth in the morning and 1 tablet (500 mg total) before bedtime. 180 tablet 3 02/17/2023 Active take 1 tablet by jarret th twice daily Ranexa 500 MG 1 tablet Orally twice daily Active Completed/Discontinued Medications Medication Drug Class(es) Dates Sig (Normalized) Sig (Original) Aspir-81 81 MG (2 sources) take 1 tablet by mouth once daily Aspir-81 81 MG 1 tablet Orally Once a day Not-Taking aspirin 81 mg delayed release oral tablet (1 source) Platelet Aggregation Inhibitor, Nonsteroidal Anti-inflammatory Drug Start: 01-30-20 End: 02-08-20 take 81 mg by mouth once daily Aspirin Discontinued 81 MG PO Daily January 30, 2024 12:00am February 08, 2024 11:02am cilostazol 100 mg oral tablet (2 sources) [...] with food Orally Twice a day Not-Taking pramipexole dihydrochloride 1 mg oral tablet (4 sources) Nonergot Dopamine Agonist Start: 01-30-20 24 End: 02-08-20 24 take 1 mg by mouth once daily at bedtime Pramipexole Discontinued 1 MG PO Daily at bedtime January 30, 2024 12:00am February 08, 2024 11:31am Start: 08-03-2023 pramipexole (M IRAPEX) 1 mg tablet Payers Date Payer Category Payer Unknown [facility] [employer] [id number] 2021-Present [phone] [address] [place] [address] [id number] 2015 Medicare MEDICARE MEDICAR E PART A & B [id number] 2015-Present [phone] [address] [place] [address] [id number] 1959 Medicare [id number] 1959 Unknown [id number] 1950 Unknown [id number] [id number]. 2.727 1950 Unknown [id number] 2.16.840.1.281812.3.579. 2.593 1950 Unknown [id number] 2.16.840.1.915542.3.579. 2.593 1950 Unknown [id number] 2.16.840.1.538054.3.579. 2.593 1950 Unknown [id number] 2.16.840.1.569765.3.579. 2.593 1950 Unknown [id number] 2.16.840.1.373938.3.579. 2.1286 1950 Unknown [id number] 2.16.840.1.351692.3.579. 2.1286 1950 Unknown [id number] 2.16.840.1.800453.3.579. 2.1286 1950 Unknown [id number] 2.16.840.1.216981.3.579. 2.1286 1950 Unknown [id number] 2.16.840.1.997007.3.579. 2.1286 1950 Unknown [id number] 2.16.840.1.571544.3.579. 2.6 1950 Unknown [id number] 2.16.840.1.549555.3.579. 2.1286 Private Health Insurance [employer] [facility] [id number] Self-pay Self Pay [id number] Unknown Regular Insurance [id number] Plan of Treatment Date Care Activity Detail Author Start: 10-18-2024 Adult BMI Screening Adult BMI Screening [facility] Start: 10-18-2024 Tobacco Screening Tobacco Screening [facility] Start: 01-30-2024 End: 01-30-2024 Patient encounter procedure 01/30/2024 1:00 PM EDT Office Visit [facility] [address] [place] [address] [place] [address] Jose Gallo, [employer] [address] KRI[address]INA NUNEZ, [address] [address] [facility] Start: 01-24-2024 End: 01-24-2024 Patient encounter procedure [facility] Start: 01-17-2024 End: 01-17-2024 Patient encounter procedure 01/17/2024 1:00 PM EDT [facility] [address] [place] [address] Tasha Padgett MD [address] [place], [place] [id number] [facility] Start: 10-28-2022 Depression Screening Depression Screening [facility] Start: 2015 Fall Risk Screening Fall Risk Screening [facility] Start: 1969 DTaP,Tdap and Td Vaccines (1 - Tdap) DTaP,Tdap and Td Vaccines (1 - Tdap) [facility] Start: 1950 Medicare Annual Wellness Visit Medicare Annual Wellness Visit [facility] Start: 1950 Tobacco Counseling Tobacco Counseling [facility] Comprehensive metabo lic 2000 panel - Serum or Plasma [facility] Problems Active Problems Problem Classification Problem Date Documented Date Episodic/Chronic Aortic; peripheral; and visceral artery aneurysms (3 sources) Aneurysm of infrarenal abdominal aorta ; Translations: [Infrarenal abdominal aortic aneurysm (AAA) without rupture] Onset: 01-10-2023 01-10-2023 Chronic Chronic obstructive pulmonary disease and bronchiectasis (9 sources) Chronic obstructive pulmonary disease with (acute) lower respiratory infection; Translations: [Chronic obstructive pulmonary disease with (acute) exacerbation] Onset: 11-15-2022 Chronic Coronary atherosclerosis and other heart disease (5 sources) 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; Translations: [Disorder of cardiovascular system] Onset: 08-02-2018 Chronic Coronary atherosclerosis and other heart disease (2 sources) Presence of coronary angioplasty implant and graft; Translations: [PRESENCE COR ANGPLSTY IMPLANT AND GRAFT] Onset: 01-05-2023 Episodic Diabetes mellitus without complication (5 sources) Type 2 diabetes mellitus without complication; [...] Chronic Occlusion or stenosis of precerebral arteries (4 sources) Bilateral stenosis of carotid arteries; Translations: [Occlusion and stenosis of bilateral carotid arteries] Onset: 02-14-2017 Resolved: 01-04-2019 02-14-2017 Chronic Other aftercare (1 source) Other senior care (current) drug therapy; Translations: [OTH JAIL CURRENT DRUG THERAPY] Onset: 01-05-2023 Episodic Other aftercare (1 source) care home (current) use of oral hypoglycemic drugs; Translations: [AM[employer] 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 ORAL HYPOGLYCEMIC DX] Onset: 01-05-2023 Episodic Other connective tissue disease (1 source) Cramp; Translations: [Cramp and spasm] 02-08-2024 Episodic Other connective tissue disease (1 source) Cramp and spasm; Translations: [Cramp of limb] 02-08-2024 Episodic Other female genital disorders (1 source) Other specified noninflammatory disorders of vagina; Translations: [Other specified noninflammatory disorders of vagina] Onset: 01-17-2024 Episodic Other fractures (2 sources) Closed fracture [...] Other hereditary and degenerative nervous system conditions (3 sources) Restless legs; Translations: [Restless legs syndrome] 02-08-2024 Chronic Other hereditary and degenerative nervous system conditions (2 sources) Restless legs syndrome; Translations: [Restless legs syndrome (RLS)] Chronic Other injuries and conditions due to external causes (1 source) History of falling; Translations: [HISTORY OF FALLING] Onset: 01-05-2023 Episodic Peripheral and visceral atherosclerosis (8 sources) Peripheral vascular disease, unspecified; Translations: [Peripheral vascular disease] Onset: 11-22-2016 11-22-2016 Chronic Pneumonia (except that caused by tuberculosis or sexually transmitted disease) (1 source) Pneumonia, unspecified organism; Translations: [PNEUMONIA UNSPECIFIED ORGANISM] Onset: 01-05-2023 Episodic Prolapse of female genital organs (4 sources) Midline cystocele; Translations: [Cystocele, midline] Onset: [...] [CONTACT W/AND (SUSP) EXPOS COVID-19] Onset: 01-05-2023 Unclassified (1 source) Pessary Check Onset: 01-17-2024 Unclassified (1 source) Pessary; cleaning Onset: 10-18-2023 Past or Other Problems Problem Classification Problem [...] failure with hypoxia] Onset: 10-04-2022 10-05-2022 Episodic Procedures Date Procedure Procedure Detail Performing Clinician Start: 01-30-2024 Follow-up visit Follow-up LIBERTY RAMÍREZ Start: 10-28-2021 Adult depression screening assessment Tasha Padgett MD Work Phone: History of placement of stent for coronary artery disease Lazara Hernandez Other Results Test Name Value Interpretation Reference Range Facility VAGINITIS PANEL PCRon 2023 VAGINITIS PANEL PCR BACT. VAGINOSIS DNA Detected (qualifier value) Qualitative results are reported based on detection and quantitation of targeted organism markers which include: Lactobacillus spp. (L. crispatus and L. jensenii), Gardnerella vaginalis, Atopobium vaginae, Bacterial Vaginosis Associated Bacteria-2 (BVAB-2) and Megasphaera-1 YARELY SPECIES DNA Detected (qualifier value) Yarely species result based on detection of one or more of the following species: C. albicans, C. tropicalis, C. parapsilosis or C. dubliniensis YARELY KRUSEI DNA Not detected (qualifier value) No Yarely krusei detected YARELY GLABRATA DNA Not detected (qualifier value) No Yarely glabrata detected TRICHOMONAS VAG DNA Not detected (qualifier value) No Trichomonas vaginalis detected NOTE BD MAX Vaginal Panel has not been evaluated for patients under 18 years old. Results for these patients should be reviewed and assessed in accordance with clinical presentation to determine patient diagnosis. Normal [facility] Comment on above: Performed By: #### V PPCR #### [facility] ([id number]) [address] [place] [address], [address] [place] [address] TRANSFERRINon 01-12-2023 Transferrin [Mass/Vol] 234 mg/dL Normal 192-364 [facility] Comment on above: Performed By: #### P OCGLUC #### [facility] [address] [place], [place] [address] Dr. Demetrio Kan CBC AUTO DIFFon 01-11-2023 BASO # 0.1 103/ul Normal 0.0-0.1 [facility] Comment on above: Performed By: #### C BC, RETIC #### [facility] [address] [place] [address] Dr. Demetrio Kan Basophils/100 WBC (Bld) 0.8 % Normal 0.2-2.0 [facility] Comment on above: Performed By: #### C BC, RETIC #### [facility] [address] [place] [address] Dr. Demetrio Kan EO # 0.1 103/ul Normal 0.0-0.7 [facility] Comment on above: Performed By: #### C BC, RETIC #### [facility] [address] [place] [address] Dr. Demetrio Kan Eosinophils/100 WBC (Bld) 1.1 % Normal 0.9-7.0 [facility] Comment on above: Performed By: #### C PHIL, RETIC #### [facility] [address] [place] [address] Dr. Demetrio Kan Erythrocyte distribution width (RBC) [Ratio] 14.6 % Normal 11.0-15.0 [facility] Comment on above: Performed By: #### C PHIL, RETIC #### [facility] [address] [place] [address] Dr. Demetrio Kan Hematocrit (Bld) [Volume fraction] 39.4 % Normal 36.0-48.0 [facility] Comment on above: Performed By: #### C PHIL, RETIC #### [facility] [address] [place] [address] Dr. Demetrio Kan Hemoglobin (Bld) [Mass/Vol] 12.6 g/dL Normal 12.0-16.0 [facility] Comment on above: Performed By: #### C BC, RETIC #### [facility] [address] [place] [address] Dr. Demetrio Kan IG # 0.05 10e3/ul Critically high 0.00-0.03 [facility] Comment on above: Performed By: #### C BC, RETIC #### [facility] [address] [place] [address] Dr. Demetrio Kan IG % 0.6 % Critically high 0.0-0.5 [facility] Comment on above: Performed By: #### C BC, RETIC #### [facility] [address] [place] [address] Dr. Demetrio Kan LYMPH # 1.2 103/ul Normal 1.2-3.8 [facility] Comment on above: Performed By: #### C BC, RETIC #### [facility] [address] [place] [address] Dr. Demetrio Kan Lymphocytes/100 WBC (Bld) 14.3 % Critically low 20.5-60.0 [facility] Comment on above: Performed By: #### C BC, RETIC #### [facility] [address] [place] [address] Dr. Demetrio Kan MANUAL DIFF REQ NO Normal [facility] Comment on above: Performed By: #### C PHIL, RETIC #### [facility] [address] [place] [address] Dr. Demetrio Kan MCH (RBC) [Entitic mass] 31.0 pg Normal 26.7-34.0 [facility] Comment on above: Performed By: #### C BC, RETIC #### [facility] [address] [place] [address] Dr. Demetrio Kan MCHC (RBC) [Mass/Vol] 32.0 g/dL Normal 29.9-35.2 [facility] Comment on above: Performed By: #### C PHIL, RETIC #### [facility] [address] [place] [address] Dr. Demetrio Kan MCV (RBC) [Entitic vol] 97.0 fL Normal 81.0-99.0 [facility] Comment on above: Performed By: #### C BC, RETIC #### [facility] [address] [place] [address] Dr. Demetrio Kan MONO # 0.7 103/ul Normal 0.3-0.8 [facility] Comment on above: Performed By: #### C BC, RETIC #### [facility] [address] [place] [address] Dr. Demetrio Kan Monocytes/100 WBC (Bld) 8.7 % Normal 1.7-12.0 [facility] Comment on above: Performed By: #### C BC, RETIC #### [facility] [address] [place] [address] [address] Demetrio Kan NEUT # 6.3 103/ul Normal 1.4-6.5 [facility] Comment on above: Performed By: #### C BC, RETIC #### [facility] [address] [place] [address] [address] Demetrio Kan Neutrophils/100 WBC (Bld) 74.5 % Normal 43.0-75.0 [facility] Comment on above: Performed By: #### C BC, RETIC #### [facility] [address] [place] [address] [address] Demetrio Kan Platelet mean volume (Bld) [Entitic vol] 9.6 fL Normal 9.5-13.5 [facility] Comment on above: Performed By: #### C BC, RETIC #### [facility] [address] [place] [address] [address] Demetrio Kan PLT 275 103/ul Normal 150-450 [facility] Comment on above: Performed By: #### C BC, RETIC #### [facility] [address] [place] [address] [address] Demetrio Kan RBC 4.06 106/ul Critically low 4.20-5.40 [facility] Comment on above: Performed By: #### C BC, RETIC #### [facility] [address] [place] [address] [address] Demetrio Kan WBC 8.5 103/ul Normal 4.0-11.0 [facility] Comment on above: Performed By: #### C BC, RETIC #### [facility] [address] [place] [address] [address] Demetrio Kan FERRITINon 01-11-2023 Ferritin [Mass/Vol] 323.0 ng/mL Critically high 8.0-252.0 [facility] Comment on above: Performed By: #### C MP, BNP, CMADM #### [facility] [address] [place] [address] [address] Demetrio Kan IRON AND TIBCon 01-11-2023 % SATURATION 28.6 % Normal [facility] Comment on above: Performed By: #### C MP, BNP, CMADM #### [facility] [address] [place] [address] Dr. Demetrio Kan Iron [Mass/Vol] 79.0 ug/dL Normal 50.0-170.0 [facility] Comment on above: Performed By: #### C MP, BNP, CMADM #### [facility] [address] [place] [address] Dr. Demetrio Kan TIBC DIRECT 276.0 ug/dL Normal 250.0-450.0 [facility] Comment on above: Performed By: #### C MP, BNP, CMADM #### [facility] [address] [place] [address] Dr. Demetrio Kan RETICULOCYTEon 01-11-2023 RETIC 1.71 % Normal 0.60-3.10 [facility] Comment on above: Performed By: #### C BC, RETIC #### [facility] [address] [place] [address] Dr. Demetrio Kan VIT B12 AND FOLATEon 023 Cobalamin (Vitamin B12) [Mass/Vol] 771.0 pg/mL Normal 193.0-986.0 [facility] Comment on above: Performed By: #### P OCGLUC #### [facility] [address] [place] [address] Dr. Demetrio Kan FOLATE 10.00 ng/mL Normal 8.60-58.90 [facility] Comment on above: Performed By: #### P OCGLUC #### [facility] [address] [place] [address] Dr. Demetrio Kan CULTURE SPUTUMon 01-01-2023 CULTURE [...] F Trimethoprim/Sulfame thoxazole <=20 S F Normal [facility] Comment on above: Performed By: #### S PUTCX ####[facility] [address] [place], [place] [address]Dr. Demetrio Kan CBC W MANUAL DIFFon 01-01-20 23 ATYPICAL LYMPH # Normal [facility] Comment on above: Performed By: #### C JESSE ####[facility] [address] [place], [place] [address]Dr. Demetrio Kan ATYPICAL LYMPH % Normal [facility] Comment on above: Performed By: #### C JESSE ####[facility] [address] [place], [place] [address]Dr. Demetrio Kan BAND # 0.0 103/ul Normal 0.0-0.3 [facility] Comment on above: Performed By: #### C JESSE ####[facility] [address] [place], [place] [address]Dr. Demetrio Kan BAND % 0 % Normal 0-5 [facility] Comment on above: Performed By: #### C JESSE ####[facility] [address] [place], [place] [address]Dr. Demetrio Kan BASOM # 0.00 103/ul Normal 0.00-0.10 [facility] Comment on above: Performed By: #### C JESSE ####[facility] [address] [place], [place] [address]Dr. Demetrio Kan BASOM % 0.0 % Critically low 0.2-2.0 [facility] Comment on above: Performed By: #### C BCMAN ####[facility] [facility] B[address]rqjuvhi[address] [place] [id number]. Demetrio Kan BLAST # Normal [facility] Comment on above: Performed By: #### C BCMAN ####[facility] Mcswjdigxm57[address] [place] [phone]. Demetrio Kan BLAST % Normal [facility] Comment on above: Performed By: #### C BCMAN ####[facility] Zaqfwaykcf[address] [place], [place] [address]Dr. Demetrio Kan CORRECTED WBC Normal 4.0-11.[address] [facility] Comment on above: Performed By: #### C BCTEDDY ####[facility] Szqefmwyvl[address] [place], [place] [address]Dr. Demetrio Kan EOS # 0.00 103/ul Normal 0.00-0.70 [facility] Comment on above: Performed By: #### C BCTEDDY ####[facility] Vbbjuirmdy[address] [place], [place] [address]Dr. Demetrio Kan EOS% 0.0 % Critically low 0.9-7.0 [facility] Comment on above: Performed By: #### C BCTEDDY ####[facility] Iinkimzflc[address] [place], [place] [address]Dr. Demetrio Kan HCT 32.1 % Critically low 36.0-48.0 [facility] Comment on above: Performed By: #### C BCMAN ####[facility] Nvmtiihena[address] [place], [place] [address]Dr. Demetrio Kan HGB 10.4 g/dl Critically low 12.0-16.0 [facility] Comment on above: Performed By: #### C BCMAN ####[facility] Qkwsrzqkin3[address] [place], [place] [address]Dr. Demetrio Kan LYMPHM # 0.46 103/ul Critically low 1.20-3.80 [facility] Comment on above: Performed By: #### C BCMAN ####[facility] Zdozjklvhx4900 [place], [place] [address]Uq. Demetrio Kan LYMPHM% 3.0 % Critically low 20.5-60.0 [facility] Comment on above: Performed By: #### C JESSE ####[facility] Jxnzvebccr[address] [place] [id number]. Demetrio Kan MCH 30.1 pg Normal 26.7-34.0 [facility] Comment on above: Performed By: #### C JESSE ####[facility] Bjqlpfczlv0756 [place] [phone]. Demetrio Kan MCHC 32.4 g/dl Normal 29.9-35.2 [facility] Comment on above: Performed By: #### C JESSE ####[facility] Kezaekproh9[address] [place] [phone]. Demetrio Kan MCV 93.0 fL Normal 81.0-99.0 [facility] Comment on above: Performed By: #### C JESSE ####[facility] Rkbqknkncy13[address] [place] [phone]. Demetrio Kan METAMYELOCYTE # Normal [facility] Comment on above: Performed By: #### C JESSE ####[facility] Xausbslomb7[address] [place] [phone]. Demetrio Kan METAMYELOCYTE % Normal [facility] Comment on above: Performed By: #### C JESSE ####[facility] Upiscytehh1862 [place] [phone]. Demetrio Kan MONOM# 0.15 103/ul Critically low 0.30-0.80 [facility] Comment on above: Performed By: #### C JESSE ####[facility] Twieicsmbi97[address] [place] [phone]. Demetrio Kan MONOM% 1.0 % Critically low 1.7-12.0 [facility] Comment on above: Performed By: #### C JESSE ####[facility] Nlqaiyektt10[address] [place] [phone]. Demetrio Kan MPV 9.7 fL Normal 9.5-13.5 [facility] Comment on above: Performed By: #### C JESSE ####[facility] Flujzfszch16[address] [place] [address]Dr. Demetrio Kan MYELOCYTE # Normal [facility] Comment on above: Performed By: #### C JESSE ####[facility] Ekxcncwdyn028[address] [place] [phone]. Demetrio Kan MYELOCYTE % Normal [facility] Comment on above: Performed By: #### C JESSE ####[facility] Cxzqfistuu9563 [place] [phone]. Demetrio Kan NRBC Normal [facility] Comment on above: Performed By: #### C JESSE ####[facility] Juuppdvzek3239 [place] [phone]. Demetrio Kan PLT 249 103/ul Normal 150-450 [facility] Comment on above: Performed By: #### C JESSE ####[facility] Xfcbbrnpbn0915 [place] [phone]. Demetrio Kan RBC 3.45 106/ul Critically low 4.20-5.40 [facility] Comment on above: Performed By: #### C JESSE ####[facility] Eadoguhhpg[address] [place] [address]Dr. Demetrio Kan RDW 14.6 % Normal 11.0-15.0 [facility] Comment on above: Performed By: #### C JESSE ####[facility] Itndrzxorb05[address] [place] [phone]. Demetrio Kan SEG # 14.59 103/ul Critically high 1.40-6.50 [facility] Comment on above: Performed By: #### C JESSE ####[facility] Esrqsmucbc6278 [place] [phone]. Demetrio Kan SEG % 96.0 % Critically high 43.0-75.0 [facility] Comment on above: Performed By: #### C JESSE ####[facility] [address]qzdzzem[address] [place], [place] [address]Dr. Demetrio Kan WBC 15.2 103/ul Critically high 4.0-11.0 [facility] Comment on above: Performed By: #### C BCMAN ####[facility] Xywsnzapkc[address] [place] [address]Dr. Demetrio Kan POINT OF CARE GLUCOSEon 12-03 Glucose [Mass/Vol] 252 mg/dL Critically high 74-106 [facility] Comment on above: Performed By: #### P OCGLUC #### [facility] [address] [address] [address] Demetrio Kan Glucose [Mass/Vol] 294 mg/dL Critically high 74-106 [facility] Comment on above: Performed By: #### C MP, BNP, CMADM #### [facility] [address] [address] [address] Demetrio Kan PROF 14(COMP METB)on 023 Albumin [Mass/Vol] 1.8 g/dL Critically low 3.4-5.0 [facility] Comment on above: Performed By: #### C MP, BNP, CMADM #### [facility] [address] [address] [address] Demetrio Kan Albumin/Globulin [Mass ratio] 0.5 {ratio} [facility] Comment on above: Performed By: #### C MP, BNP, CMADM #### [facility] [address] [address] [address] Demetrio Kan ALP [Catalytic activity/Vol] 101 U/L Normal 46-116 [facility] Comment on above: Performed By: #### C MP, BNP, CMADM #### [facility] [address] [address] [address] Demetrio Kan ALT [Catalytic activity/Vol] 15 U/L Normal 14-59 [facility] Comment on above: Performed By: #### C MP, BNP, CMADM #### [facility] [address] [address] [address] Demetrio Kan Anion gap [Moles/Vol] 9.7 mmol/L Normal [facility] Comment on above: Performed By: #### C MP, BNP, CMADM #### [facility] [address] [address] [address] Demetrio Kan AST [Catalytic activity/Vol] 13 U/L Critically low 15-37 [facility] Comment on above: Performed By: #### C MP, BNP, CMADM #### [facility] [address] [address] [address] Demetrio Kan Bilirubin [Mass/Vol] 0.2 mg/dL Normal 0.2-1.0 [facility] Comment on above: Performed By: #### C MP, BNP, CMADM #### [facility] [address] [address] [address] Demetrio Kan Calcium [Mass/Vol] 9.0 mg/dL Normal 8.5-10.1 [facility] Comment on above: Performed By: #### C MP, BNP, CMADM #### [facility] [address] [address] [address] Demetrio Kan Chloride [Moles/Vol] 105 mmol/L Normal 98-107 [facility] Comment on above: Performed By: #### C MP, BNP, CMADM #### [facility] [address] [address] [address] Demetrio Kan CO2 [Moles/Vol] 27.8 mmol/L Normal 21.0-32.0 [facility] Comment on above: Performed By: #### C MP, BNP, CMADM #### [facility] [address] [address] [address] Demetrio Kan Creatinine [Mass/Vol] 0.82 mg/dL Normal 0.55-1.02 [facility] Comment on above: Performed By: #### C MP, BNP, CMADM #### [facility] [address] [place] [address] Dr. Demetrio Kan EGFR-AF NIGERIEN >60 Normal >=60 [facility] Comment on above: Performed By: #### C MP, BNP, CMADM #### [facility] [address] [address] [address] Demetrio Kan EGFR-NON AF NIGERIEN >60 Normal >=60 [facility] Comment on above: Performed By: #### C MP, BNP, CMADM #### [facility] [address] [address] [address] Demetrio Kan Globulin (S) [Mass/Vol] 3.8 g/dL Normal [facility] Comment on above: Performed By: #### C MP, BNP, CMADM #### [facility] [address] [address] [address] Demetrio Kan Glucose [Mass/Vol] 268 mg/dL Critically high 74-106 [facility] Comment on above: Performed By: #### C MP, BNP, CMADM #### [facility] [address] [address] [address] Demetrio Kan Potassium [Moles/Vol] 4.5 mmol/L Normal 3.5-5.1 [facility] Comment on above: Performed By: #### C MP, BNP, CMADM #### [facility] [address] [address] [address] Demetrio Kan Protein [Mass/Vol] 5.6 g/dL Critically low 6.4-8.2 Th [facility] Comment on above: Performed By: #### C MP, BNP, CMADM #### [facility] [address] [place] [address] Dr. Demetrio Kan Sodium [Moles/Vol] 138 mmol/L Normal 136-145 [facility] Comment on above: Performed By: #### C MP, BNP, CMADM #### [facility] [address] [address] [address] Demetrio Kan Urea nitrogen [Mass/Vol] 30.0 mg/dL Critically high 7.0-18.0 [facility] Comment on above: Performed By: #### C MP, BNP, CMADM #### [facility] [address] [place] [address] Dr. Demetrio Kan Urea nitrogen/Creatinine [Mass ratio] 36.6 mg/mg [facility] Comment on above: Performed By: #### C MP, BNP, CMADM #### [facility] [address] [place], [place] [id number] Dr. Demetrio Kan XR CHEST 1 Von 12-31-2022 XR CHEST 1 V EXAM: XR CHEST 1 V HISTORY: SHORTNESS OF BREATH COMPARISON: 12/29/2022. TECHNIQUE: Chest X-ray AP, 1 view. FINDINGS: Support devices: None. 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 Persistent bibasilar airspace opacities. Blunting of costophrenic angles likely represents airspace disease, trace/small effusions and be difficult to exclude. No evidence of pneumothorax. Heart and mediastinum: Stable contours compared to prior examination. Bones: No acute abnormality identified. IMPRESSION: Persistent bibasilar airspace disease/consolidatio ns. Electronically authenticated by: JOCY MUÑOZ Date: 2022-12-31 08:22 Normal [facility] BLOOD GASES BTYon 12-30-2022 02 MODE NASAL CANNULA Normal [facility] Comment on above: Performed By: #### A BG ####[facility] [address]dlshqtl[address] [place] [address]Dr. Demetrio Kan ALLENS TEST Positive Normal [facility] Comment on above: Performed By: #### A BG ####[facility] Hedystwxrl[address] [place] [address]Dr. Demetrio Kan Base excess Calc (Bld) [Moles/Vol] 6.0 mmol/L Critically high -2.0-2.0 [facility] Comment on above: Performed By: #### A BG ####[facility] Gaubuiosxr[address] [place] [address]Dr. Demetrio Kan BIPAP PRESSURE Normal [facility] Comment on above: Performed By: #### A BG ####[facility] Smfabxiaea62[address] [place] [address]Dr. Demetrio Kan CPAP Normal [facility] Comment on above: Performed By: #### A BG ####[facility] Vtowjzlwdp[address] [place] [address]Dr. Demetrio Kan FIO2 Normal [facility] Comment on above: Performed By: #### A BG ####[facility] Pssvbzcnzb7[address] [place] [address]Dr. Demetrio Lucius HCO3 (Bld) [Moles/Vol] 28.7 mmol/L Critically high 22.0-26.0 [facility] Comment on above: Performed By: #### A BG ####[facility] Ipuceuoflk[address] [place] [address]Dr. Demetrio Kan LPM [address] [facility] Comment on above: Performed By: #### A BG ####[facility] Surrorzcen[address] [place] [address]Dr. Demetrio Kan MINUTE VOLUME Normal [facility] Comment on above: Performed By: #### A BG ####[facility] Crhkmewenz10[address] [place] [address]Dr. Demetrio Kan Oxygen (Bld) [Partial pressure] 102.0 mm[Hg] Critically high 80.0-100.0 [facility] Comment on above: Performed By: #### A BG ####[facility] Mzpkvrikvb2[address] [place], [place] [address]Dr. Demetrio Kan Oxygen saturation in Blood 99.1 % Normal 95.0-100.0 [facility] Comment on above: Performed By: #### A BG ####[facility] [address]ahabxeoak[address] [place], [place] [address]Dr. Demetrio Kan PCO2 34.5 mmHg Critically low 35.0-45.0 [facility] Comment on above: Performed By: #### A BG ####[facility] Kximurtkzf6[address] [place] [address]Dr. Demetrio Kan PEEP Normal [facility] Comment on above: Performed By: #### A BG ####[facility] Yikcnzarkc[address] [place], [place] [address]Dr. Demetrio Kan pH (Bld) 7.529 [pH] Critically high 7.350-7.450 [facility] Comment on above: Result Comment: Prev iously reported as: 7.520 On 12/30/2022 07:13 By LM4 Performed By: #### A BG ####[facility] [address] [place], [place] [address]Dr. Demetrio Kan PIP Normal [facility] Comment on above: Performed By: #### A BG ####[facility] Avhidajwpg[address] [place] [address]Dr. Demetrio Kan PS Normal [facility] Comment on above: Performed By: #### A BG ####[facility] Yearjwzbbp44[address] [place] [address]Dr. Demetrio Kan PUNCTURE SITE RR Normal [facility] Comment on above: Performed By: #### A BG ####[facility] Ekuxyonmix[address] [place], [place] [address]Dr. Demetrio Kan RATE [facility] Comment on above: Performed By: #### A BG ####[facility] Anpgbtdzft[address] [place], [place] [address]Dr. Demetrio Kan VENT MODE [facility] Comment on above: Performed By: #### A BG ####[facility] Zrptvdfwde[address] [place], [place] [address]Dr. Demetrio Kan [place] [facility] Comment on above: Performed By: #### A BG ####[facility] Wvdvoaruxd[address] [place], [place] [address]Dr. Demetrio Kan CBC W MANUAL DIFFon 12-31-19 23 ATYPICAL LYMPH # [facility] Comment on above: Performed By: #### C JESSE ####[facility] Fevidugpaq[address] [place], [place] [address]Dr. Demetrio Kan ATYPICAL LYMPH % Normal [facility] Comment on above: Performed By: #### C BCTEDDY ####[facility] Rqeharxijs4[address] [place] [address]Dr. Demetrio Kan BAND # 0.0 103/ul Normal 0.0-0.3 [facility] Comment on above: Performed By: #### C JESSE ####[facility] Nomumpfsix05[address] [place] [address]Dr. Demetrio Kan BAND % 0 % Normal 0-5 [facility] Comment on above: Performed By: #### C JESSE ####[facility] Trlfulvjgz5[address] [place] [address]Dr. Demetrio Kan BASOM # 0.00 103/ul Normal 0.00-0.10 [facility] Comment on above: Performed By: #### C BCMAN ####[facility] Qjwejaabwq9[address] [place] [address]Dr. Demetrio Kan BASOM % 0.0 % Critically low 0.2-2.0 [facility] Comment on above: Performed By: #### C BCMAN ####[facility] Qjbjljlnwx5580 [place] [address]Dr. Demetrio Kan BLAST # Normal [facility] Comment on above: Performed By: #### C BCMAN ####[facility] Ezzevrlssl[address] [place], [place] [address]Dr. Demetrio Kan BLAST % Normal [facility] Comment on above: Performed By: #### C BCTEDDY ####[facility] Bgzxvxyozc37[address] [place], [place] [address]Dr. Demetrio Kan CORRECTED WBC Normal 4.0-11.[address] [facility] Comment on above: Performed By: #### C BCTEDDY ####[facility] Adxbtlxzrf09[address] [place], [place] [address]Dr. Demetrio Kan EOS # 0.00 103/ul Normal 0.00-0.70 [facility] Comment on above: Performed By: #### C BCMAN ####[facility] Iwlemxvdze9[address] [place], [place] [address]Dr. Demetrio Kan EOS% 0.0 % Critically low 0.9-7.0 [facility] Comment on above: Performed By: #### C BCMAN ####[facility] Gtyqiebggy[address] [place], [place] [address]Dr. Demetrio Kan HCT 30.2 % Critically low 36.0-48.0 [facility] Comment on above: Performed By: #### C BCMAN ####[facility] Kmegvyovdw9[address] [place], [place] [address]Dr. Demetrio Kan HGB 9.9 g/dl Critically low 12.0-16.0 [facility] Comment on above: Performed By: #### Chantel MOLINA ####[facility] Ckrsoblozl[address] [place] [phone]. Demetrio Kan LYMPHM # 0.14 103/ul Critically low 1.20-3.80 [facility] Comment on above: Performed By: #### Chantel MOLINA ####[facility] Cuglhlkpkb45[address] [place] [phone]. Demetrio Kan LYMPHM% 1.0 % Critically low 20.5-60.0 [facility] Comment on above: Performed By: #### Chantel MOLINA ####[facility] Iuvtaamtgw7608 [place] [phone]. Demetrio Kan MCH 30.1 pg Normal 26.7-34.0 [facility] Comment on above: Performed By: #### Chantel MOLINA ####[facility] Ivrkvvjrap7404 [place] [phone]. Demetrio Kan MCHC 32.8 g/dl Normal 29.9-35.2 [facility] Comment on above: Performed By: #### Chantel MOLINA ####[facility] Rxmbyzpndu8595 [place] [phone]. Demetrio Kan MCV 91.8 fL Normal 81.0-99.0 [facility] Comment on above: Performed By: #### Chantel MOLINA ####[facility] Urxgldefao8733 [place] [phone]. Demetrio Kan METAMYELOCYTE # Normal [facility] Comment on above: Performed By: #### Chantel MOLINA ####[facility] Vkhwzrkotg8494 [place] [address]Dr. Demetrio Kan METAMYELOCYTE % Normal [facility] Comment on above: Performed By: #### Chantel MOLINA ####[facility] Dociltxvuq[address] [place], [place] [address]Dr. Demetrio Kna MONOM# 0.00 103/ul Critically low 0.30-0.80 [facility] Comment on above: Performed By: #### Chantel MOLINA ####[facility] Neoeihfrsn[address] [place], [place] [address]Dr. Demetrio Kan MONOM% 0.0 % Critically low 1.7-12.0 [facility] Comment on above: Performed By: #### C JESSE ####[facility] Umkoqkucme27[address] [place] [phone]. Demetrio Kan MPV 9.9 fL Normal 9.5-13.5 [facility] Comment on above: Performed By: #### C JESSE ####[facility] Yxbhpgzsob2243 [place] [address]Dr. Demetrio Kan MYELOCYTE # Normal [facility] Comment on above: Performed By: #### C JESSE ####[facility] Fyxzdvgbqj4345 [place] [address]Dr. Demetrio Kan MYELOCYTE % Normal [facility] Comment on above: Performed By: #### C JESSE ####[facility] Ynekjvzzjg98[address] [place] [address]Dr. Demetrio Kan NRBC Normal [facility] Comment on above: Performed By: #### C JESSE ####[facility] Yqqhpjddxw7017 [place] [phone]. Demetrio Kan PLT 200 103/ul Normal 150-450 [facility] Comment on above: Performed By: #### C JESSE ####[facility] Wrqdprujva7746 [place] [phone]. Demetrio Kan RBC 3.29 106/ul Critically low 4.20-5.40 [facility] Comment on above: Performed By: #### C JESSE ####[facility] Xaebiicpsq3892 [place] [phone]. Demetrio Kan RDW 14.3 % Normal 11.0-15.0 [facility] Comment on above: Performed By: #### C JESSE ####[facility] Jbenfkiffb1707 [place] [phone]. Demetrio Kan SEG # 13.76 103/ul Critically high 1.40-6.50 [facility] Comment on above: Performed By: #### C JESSE ####[facility] Echmehcfaf[address] [place] [address]Dr. Demetrio Kan SEG % 99.0 % Critically high 43.0-75.0 [facility] Comment on above: Performed By: #### C BCTEDDY ####[facility] Wvydgqegcx4890 [place], [place] [address]QxDr. Demetrio Kan WBC 13.9 103/ul Critically high 4.0-11.0 [facility] Comment on above: Performed By: #### C BCTEDDY ####[facility] Lzcufpccqx37[address] [place] [phone]. Demetrio Kan POINT OF CARE GLUCOSEon 12-03 0-2022 Glucose [Mass/Vol] 265 mg/dL Critically high 74-106 [facility] Comment on above: Performed By: #### C MP, BNP, CMADM #### [facility] [address] [address] [address] Demetrio Kan Glucose [Mass/Vol] 333 mg/dL Critically high -106 [facility] Comment on above: Performed By: #### P OCGLUC #### [facility] [address] [address] [address] Demetrio Kan Glucose [Mass/Vol] 219 mg/dL Critically high [facility]106 [facility] Comment on above: Performed By: #### C MP, BNP, CMADM #### [facility] [address] [address] [address] Demetrio Kan Glucose [Mass/Vol] 281 mg/dL Critically high -106 [facility] Comment on above: Performed By: #### P OCGLUC #### [facility] [address] [address] [address] Demetrio Kan PROF 14(COMP METB)on 023 Albumin [Mass/Vol] 1.7 g/dL Critically low 3.4-5.0 [facility] Comment on above: Performed By: #### C MP ####[facility] Cxlwgvciss8798 [place] [phone]. Demetrio Kan Albumin/Globulin [Mass ratio] 0.4 {ratio} Normal [facility] Comment on above: Performed By: #### C MP ####[facility] Gobhqfeaqz20[address] [place] [phone]. Demetrio Kan ALP [Catalytic activity/Vol] 103 U/L Normal 46-116 [facility] Comment on above: Performed By: #### C MP ####[facility] Ubmnjrnhde6083 [place] [phone]. Demetrio Kan ALT [Catalytic activity/Vol] 11 U/L Critically low 14-59 [facility] Comment on above: Performed By: #### C MP ####[facility] Uzguyedgwo8408 [place] [phone]. Demetrio Kan Anion gap [Moles/Vol] 8.8 mmol/L Normal [facility] Comment on above: Performed By: #### C MP ####[facility] Xfbqnxwjex230[address] [place] [address]Dr. Demetrio Kan AST [Catalytic activity/Vol] 10 U/L Critically low 15-37 [facility] Comment on above: Performed By: #### C MP ####[facility] [address]vdiwuzyqh[address] [place], [place] [address]Dr. Demetrio Kan Bilirubin [Mass/Vol] 0.3 mg/dL Normal 0.2-1.0 [facility] Comment on above: Performed By: #### C MP ####[facility] Zxbjxhqhol[address] [place], [place] [address]Dr. Demetrio Kan Calcium [Mass/Vol] 8.8 mg/dL Normal 8.5-10.1 [facility] Comment on above: Performed By: #### C MP ####[facility] Eardpbqjom8[address] [place] [address]Dr. Demetrio Kan Chloride [Moles/Vol] 103 mmol/L Normal 98-107 [facility] Comment on above: Performed By: #### C MP ####[facility] Kzjuarvumr[address] [place] [address]Dr. Demetrio Kan CO2 [Moles/Vol] 30.9 mmol/L Normal 21.0-32.0 [facility] Comment on above: Performed By: #### C MP ####[facility] Srcjpoifmf[address] [place] [address]Dr. Demetrio Lucius Creatinine [Mass/Vol] 0.69 mg/dL Normal 0.55-1.02 [facility] Comment on above: Performed By: #### C MP ####[facility] Dwipkrdknr[address] [place] [address]Dr. Demetrio Lucius EGFR-AF NIGERIEN >60 Normal >=60 [facility] Comment on above: Performed By: #### C MP ####[facility] Cahtlihohj[address] [place] [address]Dr. Demetrio Lucius EGFR-NON AF NIGERIEN >60 Normal >=60 [facility] Comment on above: Performed By: #### C MP ####[facility] Crpjc[address]vyf[address] [place], [place] [address]Dr. Demetrio [place] Globulin (S) [Mass/Vol] 3.9 g/dL Normal [facility] Comment on above: Performed By: #### C MP ####[facility] [address] [place], [place] [address]Dr. Demetrio Lucius Glucose [Mass/Vol] 216 mg/dL Critically high 74-106 [facility] Comment on above: Performed By: #### C MP ####[facility] Dwuve[address]pyl[address] [place], [place] [address]Dr. Demetrio Kan Potassium [Moles/Vol] 2.7 mmol/L Critically low 3.5-5.1 [facility] Comment on above: Performed By: #### C MP ####[facility] [address] [place] [address]Dr. Demetrio Kan Protein [Mass/Vol] 5.6 g/dL Critically low 6.4-8.2 Th [facility] Comment on above: Performed By: #### C MP ####[facility] Akmmarib[address] [place], [place] [address]Dr. Demetrio Kan Sodium [Moles/Vol] 140 mmol/L Normal 136-145 [facility] Comment on above: Performed By: #### C MP ####[facility] [address]brdoqkq[address] [place], [place] [address]Dr. Demetrio Kan Urea nitrogen [Mass/Vol] 16.0 mg/dL Normal 7.0-18.0 [facility] Comment on above: Performed By: #### C MP ####[facility] [address] [place] [address]Dr. Demetrio Kan Urea nitrogen/Creatinine [Mass ratio] 23.2 mg/mg Normal [facility] Comment on above: Performed By: #### C MP ####[facility] [address] [place] [address]Dr. Demetrio Kan BNPon 12-29-2022 Natriuretic peptide B (Bld) [Mass/Vol] 824.0 pg/mL Normal <=900.0 [facility] Comment on above: Performed By: #### C MP, BNP, CMADM #### [facility] [address] [place] [address] Dr. Demetrio Kan CARDIAC IGNACIA ADMITon 023 CK [Catalytic activity/Vol] 43 U/L Normal 26-192 [facility] Comment on above: Performed By: #### C MP, BNP, CMADM #### [facility] [address] [address] [address] Demetrio Kan CK.MB [Mass/Vol] 0.91 ng/mL Normal <=3.60 [facility] Comment on above: Performed By: #### C MP, BNP, CMADM #### [facility] [address] [place] [address] Dr. Demetrio Kan HSTROP 18.1 pg/mL Normal 4.0-51.3 [facility] Comment on above: Result Comment: CUT- OFF POINTS HAVE BEEN ESTABLISHED BASED ON THE FOURTH UNIVERSAL DEFINITIONS OF MYOCARDIAL INFARCTION. THE UPPER REFERENCE LIMIT (URL) OF TROPONIN, DEFINED THE 99TH PERCENTILE OF cTnI DISTRIBUTION IN A REFERENCE POPULATION, HAS BEEN CONFIRMED THE DECISION THRESHOLD FOR VT DIAGNOSIS. Performed By: #### C MP, BNP, CMADM #### [facility] [address] [address] [address] Demetrio Kan KAVEH 63 ng/mL Normal 9-82 [facility] Comment on above: Performed By: #### C MP, BNP, CMADM #### [facility] [address] [place], [place] [address] Dr. Demetrio Kan CBC AUTO DIFFon 12-29-2022 BASO # 0.1 103/ul Normal 0.0-0.1 [facility] Comment on above: Performed By: #### C BC ####[facility] [address] [place] [id number] Kan Basophils/100 WBC (Bld) 0.4 % Normal 0.2-2.0 [facility] Comment on above: Performed By: #### C BC ####[facility] [address]cht[address] [place] [address]DrPham Kan EO # 0.1 103/ul Normal 0.0-0.7 [facility] Comment on above: Performed By: #### C BC ####[facility] [address] [place] [address]DrPham Kan Eosinophils/100 WBC (Bld) 0.4 % Critically low 0.9-7.0 [facility] Comment on above: Performed By: #### C BC ####[facility] [address] [place] [address]DrPham Kan Erythrocyte distribution width (RBC) [Ratio] 14.1 % Normal 11.0-15.0 [facility] Comment on above: Performed By: #### C BC ####[facility] [address] [place] [phone] Kan Hematocrit (Bld) [Volume fraction] 37.6 % Normal 36.0-48.0 [facility] Comment on above: Performed By: #### C BC ####[facility] Ixs[address]oodum[address] [place] [phone] Kan Hemoglobin (Bld) [Mass/Vol] 12.4 g/dL Normal 12.0-16.0 [facility] Comment on above: Performed By: #### C BC ####[facility] [address] [place] [id number] Kan IG # 0.12 10e3/ul Critically high 0.00-0.03 [facility] Comment on above: Performed By: #### C BC ####[facility] [address]rnn[address] [place] [phone] Kan IG % 0.7 % Critically high 0.0-0.5 [facility] Comment on above: Performed By: #### C BC ####[facility] [address]oyday[address] [place] [phone] Kan LYMPH # 0.4 103/ul Critically low 1.2-3.8 [facility] Comment on above: Performed By: #### C BC ####[facility] [address]uz[address] [place] [phone] Kan Lymphocytes/100 WBC (Bld) 2.4 % Critically low 20.5-60.0 [facility] Comment on above: Performed By: #### C BC ####[facility] [address] [place] [phone] Kan MANUAL DIFF REQ NO Normal [facility] Comment on above: Performed By: #### C BC ####[facility] [address]ydirvi[address] [place] [phone] Demetrio Lucius MCH (RBC) [Entitic mass] 30.5 pg Normal 26.7-34.0 [facility] Comment on above: Performed By: #### C BC ####[facility] [address]vc[address] [place] [phone] Kan MCHC (RBC) [Mass/Vol] 33.0 g/dL Normal 29.9-35.2 [facility] Comment on above: Performed By: #### C BC ####[facility] [address]kbpqsmft[address] [place] [phone] Kan MCV (RBC) [Entitic vol] 92.6 fL Normal 81.0-99.0 [facility] Comment on above: Performed By: #### C BC ####[facility] [address] [place] [phone] Kan MONO # 1.0 103/ul Critically high 0.3-0.8 [facility] Comment on above: Performed By: #### C BC ####[facility] [address]xreeetg[address] [place] [address]Dr. Demetrio Kan Monocytes/100 WBC (Bld) 5.6 % Normal 1.7-12.0 [facility] Comment on above: Performed By: #### C BC ####[facility] Ur[address]tyzeu[address] [place] [address]Dr. Demetrio Kan NEUT # 16.1 103/ul Critically high 1.4-6.5 [facility] Comment on above: Performed By: #### C BC ####[facility] [address]qu[address]cwh[address] [place] [address]Dr. Demetrio Kan Neutrophils/100 WBC (Bld) 90.5 % Critically high 43.0-75.0 [facility] Comment on above: Performed By: #### C BC ####[facility] [address] [place] [address]Dr. Demetrio Kan Platelet mean volume (Bld) [Entitic vol] 9.5 fL Normal 9.5-13.5 [facility] Comment on above: Performed By: #### C BC ####[facility] [address] [place], [place] [address]Dr. Demetrio Kan PLT 245 103/ul Normal 150-450 [facility] Comment on above: Performed By: #### C BC ####[facility] [address] [place] [address]Dr. Demetrio Kan RBC 4.06 106/ul Critically low 4.20-5.40 [facility] Comment on above: Performed By: #### C BC ####[facility] [address]xb[address] [place] [phone]. Demetrio Kan WBC 17.7 103/ul Critically high 4.0-11.0 [facility] Comment on above: Performed By: #### C BC ####[facility] [address]cm[address] [place] [address]Dr. Demetrio Kan CBC W MANUAL DIFFon 12-30-19 23 ANISOCYTOSIS 1+ Normal [facility] Comment on above: Performed By: #### P OCGLUC #### [facility] [address] [address] [address] Demetrio Kan ATYPICAL LYMPH # Normal [facility] Comment on above: Performed By: #### P OCGLUC #### [facility] [address] [address] [address] Demetrio Kan ATYPICAL LYMPH % Normal [facility] Comment on above: Performed By: #### P OCGLUC #### [facility] [address] [address] [address] Demetrio Kan BAND # 0.7 103/ul Critically high 0.0-0.3 [facility] Comment on above: Performed By: #### P OCGLUC #### [facility] [address] [address] [address] Demetrio Kan BAND % 3 % Normal 0-5 [facility] Comment on above: Performed By: #### P OCGLUC #### [facility] [address] [place] [address] [address] Demetrio Kan BASOM # 0.00 103/ul Normal 0.00-0.10 [facility] Comment on above: Performed By: #### P OCGLUC #### [facility] [address] [address] [address] Demetrio Kan BASOM % 0.0 % Critically low 0.2-2.0 [facility] Comment on above: Performed By: #### P OCGLUC #### [facility] [address] [place] [address] [address] Demetrio Kan BLAST # Normal [facility] Comment on above: Performed By: #### P OCGLUC #### [facility] [address] [address] [address] Demetrio Kan BLAST % Normal [facility] Comment on above: Performed By: #### P OCGLUC #### [facility] [address] [address] [address] Demetrio Kan CORRECTED WBC Normal 4.0-11.0 [facility] Comment on above: Performed By: #### P OCGLUC #### [facility] [address] [place] [address] [address] Demetrio Kan EOS # 0.00 103/ul Normal 0.00-0.70 [facility] Comment on above: Performed By: #### P OCGLUC #### [facility] [address] [place] [address] [address] Demetrio Kan EOS% 0.0 % Critically low 0.9-7.0 [facility] Comment on above: Performed By: #### P OCGLUC #### [facility] [address] [place] [address] Dr. Demetrio Kan HCT 33.1 % Critically low 36.0-48.0 [facility] Comment on above: Performed By: #### P OCGLUC #### [facility] [address] [place] [address] Dr. Demetrio Kan HGB 11.1 g/dl Critically low 12.0-16.0 [facility] Comment on above: Performed By: #### P OCGLUC #### [facility] [address] [place] [address] Dr. Demetrio Kan LYMPHM # 0.95 103/ul Critically low 1.20-3.80 [facility] Comment on above: Performed By: #### P OCGLUC #### [facility] [address] [place] [address] Dr. Demetrio Kan LYMPHM% 4.0 % Critically low 20.5-60.0 [facility] Comment on above: Performed By: #### P OCGLUC #### [facility] [address] [place] [address] Dr. Demetrio Kan MCH 30.8 pg Normal 26.7-34.0 [facility] Comment on above: Performed By: #### P OCGLUC #### [facility] [address] [place] [address] Dr. Demetrio Kan MCHC 33.5 g/dl Normal 29.9-35.2 [facility] Comment on above: Performed By: #### P OCGLUC #### [facility] [address] [place] [address] Dr. Demetrio Kan MCV 91.9 fL Normal 81.0-99.0 [facility] Comment on above: Performed By: #### P OCGLUC #### [facility] [address] [place] [address] Dr. Demetrio Kan METAMYELOCYTE # Normal [facility] Comment on above: Performed By: #### P OCGLUC #### [facility] [address] [place] [address] Dr. Demetrio Kan METAMYELOCYTE % Normal [facility] Comment on above: Performed By: #### P OCGLUC #### [facility] [address] [place] [address] Dr. Demetrio Kan MONOM# 1.42 103/ul Critically high 0.30-0.80 [facility] Comment on above: Performed By: #### P OCGLUC #### [facility] [address] [place] [address] Dr. Demetrio Kan MONOM% 6.0 % Normal 1.7-12.0 [facility] Comment on above: Performed By: #### P OCGLUC #### [facility] [address] [place] [address] Dr. Demetrio Kan MPV 9.7 fL Normal 9.5-13.5 [facility] Comment on above: Performed By: #### P OCGLUC #### [facility] [address] [place] [address] Dr. Demetrio Kan MYELOCYTE # Normal [facility] Comment on above: Performed By: #### P OCGLUC #### [facility] [address] [place] [address] Dr. Demetrio Kan MYELOCYTE % Normal [facility] Comment on above: Performed By: #### P OCGLUC #### [facility] [address] [place] [address] Dr. Demetrio Kan NRBC Normal [facility] Comment on above: Performed By: #### P OCGLUC #### [facility] [address] [place] [address] Dr. Demetrio Kan PLT 235 103/ul Normal 150-450 [facility] Comment on above: Performed By: #### P OCGLUC #### [facility] [address] [place] [address] [address] Demetrio Kan RBC 3.60 106/ul Critically low 4.20-5.40 [facility] Comment on above: Performed By: #### P OCGLUC #### [facility] [address] [place] [address] [address] Demetrio Kan RDW 14.2 % Normal 11.0-15.0 [facility] Comment on above: Performed By: #### P OCGLUC #### [facility] [address] [place] [address] [address] Demetrio Kan SEG # 20.62 103/ul Critically high 1.40-6.50 [facility] Comment on above: Performed By: #### P OCGLUC #### [facility] [address] [address] [address] Demetrio Kan SEG % 87.0 % Critically high 43.0-75.0 [facility] Comment on above: Performed By: #### P OCGLUC #### [facility] [address] [place] [address] [address] Demetrio Kan WBC 23.7 103/ul Critically high 4.0-11.0 [facility] Comment on above: Performed By: #### P OCGLUC #### [facility] [address] [address] [address] Demetrio Kan CTA CHEST WO W CONon 29-2 023 CTA CHEST WO W CON EXAMINATION: [...] by: ARMAND PATEL Date: 2022-12-29 03:[address] [facility] CULTURE BLOODon 12-29-2022 Microscopic examination of blood, culture Culture Observations: NO GROWTH AT [address] [facility] Comment on above: Performed By: #### B LDCX2 ####[facility] [address] [place] [address]Dr. Demetrio Kan Performed By: #### B LDCX1 ####[facility] [address] [place] [address]Dr. Demetrio Kan Covid-19 PCR (CVDTB)on 12-02 SARS-CoV-2 (COVID-19) RNA BRUNO+probe Ql (Unsp spec) Not detected Normal NOT DETECTED [facility] Comment on above: Result Comment: When [...] for this test is supported by the Banking Services Officer of Health and Human Service's declaration that [...] be used). Performed By: #### C VDTBH ####[facility] [address] [place] [address]Dr. Demetrio Kan INFLUENZA A AND B AGon 12-29 INFLUANEGH SEE BELOW Normal [facility] Comment on above: Result Comment: Nega tive for Flu A protein angiten. Infection due to Flu A cannot be ruled out. Flu A angiten in the sample may be below the detection limit of the test. Performed By: #### I NFLUAB ####[facility] [address] [place] [address]Dr. Demetrio Kan INFLUBNEGH SEE BELOW Normal [facility] Comment on above: Result Comment: Nega tive for Flu B protein antigen. Infection due to Flu B cannot be ruled out. Flu B antigen in the sample may be below the detection limit of the test. Performed By: #### I NFLUAB ####[facility] [address] [place], [place] [address]Dr. Demetrio Kan INFLUENZA A AG Negative Normal NEGATIVE SEE COMMENT [facility] Comment on above: Performed By: #### I NFLUAB ####[facility] [address] [place], [place] [address]Dr. Demetrio Kan INFLUENZA B AG Negative Normal NEGATIVE SEE COMMENT [facility] Comment on above: Performed By: #### I NFLUAB ####[facility] [address] [place], [place] [address]DrPham Kan LACTATE/LACTIC ACIDon 2022 Lactate [Moles/Vol] 1.7 mmol/L Normal 0.4-2.[address] [facility] Comment on above: Performed By: #### L ACT #### [facility] [address] [place] [address] Dr. Demetrio Kan LIPID PROFILEon 12-29-2022 CHOL-HDL RATIO NORM SEE BELOW Normal The [facility] Comment on above: Result Comment: 3.3 - 4.4 LOW RISK 4.4 - 7.1 AVERAGE RISK 7.1 - 11.0 MODERATE RISK >11.0 HIGH RISK Performed By: #### P OCGLUC #### [facility] [address] [place] [address] Dr. Demetrio Kan Cholesterol [Mass/Vol] 98 mg/dL Normal <=200 [facility] Comment on above: Performed By: #### P OCGLUC #### [facility] [address] [address] [address] Demetrio Kan Cholesterol in HDL [Mass/Vol] 32 mg/dL Critically low 40-60 [facility] Comment on above: Performed By: #### P OCGLUC #### [facility] [address] [place] [address] [address] Demetrio Kan Cholesterol in LDL [Mass/Vol] 53.4 mg/dL Normal [facility] Comment on above: Performed By: #### P OCGLUC #### [facility] [address] [address] [address] Demetrio Kan Cholesterol.total/C holesterol in HDL [Mass ratio] 3.1 {ratio} Normal [facility] Comment on above: Performed By: #### P OCGLUC #### [facility] [address] [place] [address] [address] Demetrio Kan HDL NORMAL > or = 60 mg/dl - LOW CARDIOVASCULAR RISK <40 mg/dl - HIGH CARDIOVASCULAR RISK Normal [facility] Comment on above: Performed By: #### P OCGLUC #### [facility] [address] [place] [address] [address] Demetrio Kan LDL CALC NORMAL SEE BELOW Normal [facility] Comment on above: Result Comment: <100 mg/dl OPTIMAL 100 - 129 mg/dl NEAR OR ABOVE OPTIMAL 130 - 159 mg/dl BORDERLINE HIGH 160 - 189 mg/dl HIGH >190 mg/dl VERY HIGH Performed By: #### P OCGLUC #### [facility] [address] [address] [address] Demetrio Kan Triglyceride [Mass/Vol] 63 mg/dL Normal <=150 [facility] Comment on above: Performed By: #### P OCGLUC #### [facility] [address] [address] [address] Demetrio Kan VLDL CALC 12.6 mg/dL Normal [facility] Comment on above: Performed By: #### P OCGLUC #### [facility] [address] [place] [address] [address] Demetrio Kan MAGNESIUMon 12-29-2022 Magnesium [Mass/Vol] 1.7 mg/dL Critically low 1.8-2.4 [facility] Comment on above: Performed By: #### P OCGLUC #### [facility] [address] [address] [address] Demetrio Kan POINT OF CARE GLUCOSEon 12-02 Glucose [Mass/Vol] 144 mg/dL Critically high -106 [facility] Comment on above: Performed By: #### P OCGLUC ####[facility] [address] [place] [address]Dr. Demetrio Kan Glucose [Mass/Vol] 237 mg/dL Critically high -106 [facility] Comment on above: Performed By: #### P OCGLUC ####[facility] [address] [place] [address]Dr. Demetrio Kan Glucose [Mass/Vol] 283 mg/dL Critically high -106 [facility] Comment on above: Performed By: #### P OCGLUC ####[facility] [address] [place] [address]Dr. Demetrio Kan Glucose [Mass/Vol] 181 mg/dL Critically high -106 [facility] Comment on above: Performed By: #### P OCGLUC #### [facility] [address] [address] [address] Demetrio Kan PROF 14(COMP METB)on 023 Albumin [Mass/Vol] 2.2 g/dL Critically low 3.4-5.0 [facility] Comment on above: Performed By: #### C MP, BNP, CMADM #### [facility] [address] [address] [address] Demetrio Kan Albumin/Globulin [Mass ratio] 0.5 {ratio} Normal [facility] Comment on above: Performed By: #### C MP, BNP, CMADM #### [facility] [address] [address] [address] Demetrio Kan ALP [Catalytic activity/Vol] 128 U/L Critically high 46-116 [facility] Comment on above: Performed By: #### C MP, BNP, CMADM #### [facility] [address] [place] [address] Dr. Demetrio Kan ALT [Catalytic activity/Vol] 14 U/L Normal 14-59 [facility] Comment on above: Performed By: #### C MP, BNP, CMADM #### [facility] [address] [place] [address] Dr. Demetrio Kan Anion gap [Moles/Vol] 11.3 mmol/L Normal [facility] Comment on above: Performed By: #### C MP, BNP, CMADM #### [facility] [address] [place] [address] Dr. Demetrio Kan AST [Catalytic activity/Vol] 14 U/L Critically low 15-37 [facility] Comment on above: Performed By: #### C MP, BNP, CMADM #### [facility] [address] [place] [address] Dr. Demetrio Kan Bilirubin [Mass/Vol] 0.7 mg/dL Normal 0.2-1.0 [facility] Comment on above: Performed By: #### C MP, BNP, CMADM #### [facility] [address] [place] [address] Dr. Demetrio Kan Calcium [Mass/Vol] 9.2 mg/dL Normal 8.5-10.1 [facility] Comment on above: Performed By: #### C MP, BNP, CMADM #### [facility] [address] [place] [address] Dr. Demetrio Kan Chloride [Moles/Vol] 100 mmol/L Normal 98-107 [facility] Comment on above: Performed By: #### C MP, BNP, CMADM #### [facility] [address] [place] [address] Dr. Demetrio Kan CO2 [Moles/Vol] 31.6 mmol/L Normal 21.0-32.0 [facility] Comment on above: Performed By: #### C MP, BNP, CMADM #### [facility] [address] [address] [address] Demetrio Kan Creatinine [Mass/Vol] 0.75 mg/dL Normal 0.55-1.02 [facility] Comment on above: Performed By: #### C MP, BNP, CMADM #### [facility] [address] [address] [address] Demetrio Kan EGFR-AF NIGERIEN >60 Normal >=60 [facility] Comment on above: Performed By: #### C MP, BNP, CMADM #### [facility] [address] [address] [address] Demetrio Kan EGFR-NON AF NIGERIEN >60 Normal >=60 [facility] Comment on above: Performed By: #### C MP, BNP, CMADM #### [facility] [address] [place] [address] Dr. Demetrio Kan Globulin (S) [Mass/Vol] 4.4 g/dL Normal [facility] Comment on above: Performed By: #### C MP, BNP, CMADM #### [facility] [address] [address] [address] Demetrio Kan Glucose [Mass/Vol] 178 mg/dL Critically high 74-106 [facility] Comment on above: Performed By: #### C MP, BNP, CMADM #### [facility] [address] [place] [address] Dr. Demetrio Kan Potassium [Moles/Vol] 2.9 mmol/L Critically low 3.5-5.1 [facility] Comment on above: Performed By: #### C MP, BNP, CMADM #### [facility] [address] [address] [address] Demetrio Kan Protein [Mass/Vol] 6.6 g/dL Normal 6.4-8.2 [facility] Comment on above: Performed By: #### C MP, BNP, CMADM #### [facility] [address] [address] [address] Demetrio Kan Sodium [Moles/Vol] 140 mmol/L Normal 136-145 [facility] Comment on above: Performed By: #### C MP, BNP, CMADM #### [facility] [address] [place], [place] [address] Dr. Demetrio Kan Urea nitrogen [Mass/Vol] 17.0 mg/dL Normal 7.0-18.0 [facility] Comment on above: Performed By: #### C MP, BNP, CMADM #### [facility] [address] [place], [place] [address] Dr. Demetrio Kan Urea nitrogen/Creatinine [Mass ratio] 22.7 mg/mg Normal [facility] Comment on above: Performed By: #### C MP, BNP, CMADM #### [facility] [address] [address] [address] Demetrio Kan PROF CHEM 8 (BAS METB)on Anion gap [Moles/Vol] 10.0 mmol/L Normal [facility] Comment on above: Performed By: #### B MP ####[facility] [address] [place] [address]DrPham Kan Calcium [Mass/Vol] 8.9 mg/dL Normal 8.5-10.1 [facility] [facility] Comment on above: Performed By: #### B MP ####[facility] [address] [address]Dr. Demetrio Kan Chloride [Moles/Vol] 107 mmol/L Normal 98-107 [facility] Comment on above: Performed By: #### B MP ####[facility] [address] [id number]. Demetrio Kan CO2 [Moles/Vol] 31.4 mmol/L Normal 21.0-32.0 [facility] Comment on above: Performed By: #### B MP ####[facility] [address] [id number] Kan Creatinine [Mass/Vol] 0.73 mg/dL Normal 0.55-1.02 [facility] Comment on above: Performed By: #### B MP ####[facility] [address] [id number] Kan EGFR-AF NIGERIEN >60 Normal >=60 [facility] Comment on above: Performed By: #### B MP ####[facility] [address] [place] [address]Dr. Demetrio Kan EGFR-NON AF NIGERIEN >60 Normal >=60 [facility] Comment on above: Performed By: #### B MP ####[facility] [address] [address]Dr. Demetrio Kan Glucose [Mass/Vol] 148 mg/dL Critically high 74-106 T [facility] Comment on above: Performed By: #### B MP ####[facility] [address] [address]Dr. Demetrio Kan Potassium [Moles/Vol] 3.4 mmol/L Critically low 3.5-5.1 [facility] Comment on above: Performed By: #### B MP ####[facility] [address] [place], [place] [address]Dr. Demetrio Kan Sodium [Moles/Vol] 145 mmol/L Normal 136-145 [facility] Comment on above: Performed By: #### B MP ####[facility] [address] [place], [place] [address]Dr. Demetrio Kan Urea nitrogen [Mass/Vol] 16.0 mg/dL Normal 7.0-18.0 [facility] Comment on above: Performed By: #### B MP ####[facility] [address] [place], [place] [address]Dr. Demetrio Kan Urea nitrogen/Creatinine [Mass ratio] 21.9 mg/mg Normal [facility] Comment on above: Performed By: #### B MP ####[facility] [address] [place], [place] [address]Dr. Demetrio Kan PROTIMEon 12-29-2022 INR Coag (PPP) [Relative time] 0.99 {INR} Normal [facility] Comment on above: Performed By: #### P TT, PT ####[facility] [address] [place], [place] [address]Dr. Demetrio Kan INR GUIDELINES SEE BELOW Normal [facility] Comment on above: Result Comment: TRAVIS RED INR: 2.0 - 3.0 CONDITIONS NOT LISTED BELOW 2.5 - 3.5 FOR PROSTHETIC HEART VALVE REPLACEMENT 2.5 - 3.5 RECURRENT THROMBOSIS Performed By: #### P TT, PT ####[facility] [address] [address]Dr. Demetrio Kan PT Coag (PPP) [Time] 10.5 s Normal 9.0-11.6 [facility] Comment on above: Performed By: #### P TT, PT ####[facility] [address] [address]DrPham Kan PTTon 12-29-2022 aPTT Coag (Bld) [Time] 27.3 s Normal 22.3-36.2 [facility] Comment on above: Performed By: #### P TT, PT ####[facility] [address] [place] [address]DrPham Kan SPUTUM GRAM STAINon 12-30-[address] [facility] Comment on above: Performed By: #### P OCGLUC #### [facility] [address] [address] [address] Demetrio Kan DIPHTHEROIDS Normal [facility] Comment on above: Performed By: #### P OCGLUC #### [facility] [address] [address] [address] Demetrio Kan EPITHELIALS <25 Normal [facility] Comment on above: Performed By: #### P OCGLUC #### [facility] [address] [address] [address] Demetrio Kan FUNGAL ELEMENTS Normal [facility] Comment on above: Performed By: #### P OCGLUC #### [facility] [address] [address] [address] Demetrio GONZALEZ NEG BACILLI Normal [facility] Comment on above: Performed By: #### P OCGLUC #### [facility] [address] [address] [address] Demetrio GONZALEZ NEG DIPPLOCOCCI Normal [facility] Comment on above: Performed By: #### P OCGLUC #### [facility] [address] [address] [address] Demetrio Kan GRAM POS BACILLI FEW Normal [facility] Comment on above: Performed By: #### P OCGLUC #### [facility] [address] [place] [address] Dr. Demetrio Kan GRAM POSITIVE COCCI MODERATE Normal [facility] Comment on above: Performed By: #### P OCGLUC #### [facility] [address] [place] [address] Dr. Demetrio Kan WBC (Bld) [#/Vol] 10*3/uL Normal [facility] Comment on above: Performed By: #### P OCGLUC #### [facility] [address] [place] [address] Dr. Demetrio Kan SYMPTOMATIC COVID-19 ANTIGEN on 12-29-2022 EUA Statement SEE BELOW Normal The [facility] Comment on above: Result Comment: This test [...] By: #### C MP, BNP, CMADM #### [facility] [address] [place] [address] Dr. Demetrio Kan SARS-CoV-2 (COVID-19) RNA BRUNO+probe Ql (Unsp spec) Negative Normal NEGATIVE [facility] Comment on above: Performed By: #### C MP, BNP, CMADM #### [facility] [address] [place] [address] Dr. Demetrio Kan TSHon 12-29-2022 TSH 0.370 uIU/mL Normal 0.358-3.740 [facility] Comment on above: Performed By: #### P OCGLUC #### [facility] [address] [address] [address] Demetrio Kan XR CHEST 1 Von [...] by: GAIL SCHAEFER Date: 2022-12-28 23:[address] [facility] CT LUNG CANCER SCREENINGon 0 11-17-2022 CT [...] by: JEAN MOONEY Date: 2022-11-17 14:[address] [facility] Coding Summary.on 11-17-2022 Coding Summary. [id number] Gh0bWw+PGhlYWQ+PE1FV VMxN74buNDfcR4XG1yJR C4YFAFOFLJYYN3XWR1mn UW7ESbfO1VewvFj CdbklXXsHM48PCg9SJQ7 uScmRTcihY1iwYXeK5b7 FsUnMX67pA63EUpyCMUu OfP6JjKhuowqpIBs F9dxRvKioOGuOrv+PHRh YmxlIHdpZHRoPScxMDAl TlAlhMuvHT5gHb9gWCAu LWNvbGxhcHNlOiBj j8ubFQDeNRveDD5lxPqs U7BcyWC8NZIgo8t4Zu88 dHI+GPJdJIY7lLyjJTph w722GuLhn3dnKOJ2 xTLuPQisKQP9R79yr4D8 TIVqDBLiHNR5vVI8wZ0o gLddwmdvO1RlzXHrGuP4 ZOT2jCVhkK1ivWyw zleesZ6pXki+A91IRJ2C FRVVRR2OLpc0P3KjHpfc dHI+ON94OJIcXU97fRHx eICap2mikKp2WpKg COTsKVZ1zCrnXWgmn3Mz YHLrM01ukCVfl7Y1NIHn kAvbePNsRmVjhXA2zI6q BZoffphfe6cnarwr Mplhn7mtnt02jX67W15c BSlgWBSwOHN0LVOrAQPz mOezai5vfQ2jIo1+IDxj g0lpb7nccJi4MuEg AMDyyqDrmRlvFLJ4v4Uc Vr76N1AofRsjv9NdZcg5 on73fFGjn4T9kXO4DNrb BGOkyJ3dXDzjXdJ4 SQNaAtZwnA33gSWeHMqc Qt3nqCmkhYmmHX0kLLSk edajMUHrqJ1iNRXsfJAj tWmtLJ1hMEPoeyay z288ZoDuNOZ7MVWddIKx U2PcbH0hKbHoUYVaOOSe R6OdgKPkBHrnZ669JLpd BmZ5ANPlahBiE2Vj MLSccSppHcQ7l5M2Ky8X v3ZklocqQYP5WHubJKHt KrC2SgUcFyY4V9SkRei3 OLTibVtuWC8oJ6Mh CRHbzbulvmcqaVS6QBPd ADDvyC76nNQyGVtcDg2o j9Y1v839DWZiALHqyR45 Vs4ztJsgDJGvxYNB jW4cecvyt2keviiwJmXf XFGcQQs5ZEp7JAYssWxv WqShUVA2CpC7XBS8zXDy oF1zcUqsdyhozZ7s Oyc+Y07ptB2xMBJ7WLM3 eceuTFYlmnJpCX25OL62 W3LqGifhsCVluKR+PGRp vyPanNpzBW4zPyJi p2vtq6GsEPbzT1YtIRVt ZLifCbv8CWNkBOO8eAN3 nV6dMXUqXDwvr6B3jSQ6 Q1TffbErpm6rp6an PILwHXynF48paVNss8C4 PDPboPH9UCCboKlgBpWe oB44Wpm+YZTiqYkdc6Ow Koegx3xrl4lsnYf3 IjMwJSIgdmFsaWduPSJ0 j9PoYo68Y27lKOiiYVLd WAOxERRhJONkfUvgcy1o xO8gJu8+PGNvbCB3 sUE0sS5eECQgTqH1HUui F990KaRogKHpKjrpf1nc y4ierJx2GfGrNTUfdmDa dGzxETR8a3RuGx78 X41kOBdnMIKuXMIhZMBn EXVbnOsenv3tdG3iDz9+ TD5sw5izqh18fV46xYA+ TRZaCNR6qOfuMWkq AYLtnL0eGLysYyZ5FENm PnPsbC51dZTpDHusBl1x tYoqdGtiQY7eWPEjrguh n666NsIol9opWPAl fNKlLAccYZT4D34kq7Y4 KAEpQSFaJMW9aHF1gI4h bGlnbjogbGVmdDsgdmVy bGinIWseJSqgS460 IHRvcDsnPlBhdGllbnQg DeCpOLv9S4IcWtq8LEIs rOllBL6geJAfTCqmLi7c oIzleUrvAP0iBOKe ltywq107PkHda9pgBZHx aVQxTLpnSIT1F92ke4F7 EKFtUNZgAAK3bQQ1sD7c bGlnbjogbGVmdDsg eiMogJqdFKzqDTygZ904 IHRvcDsnPkJpcnRoIERh qLP9YJ78AD59pRWih4C6 tLU0H1BsOLUyaogs swgtfPP7QPVmTZSgqH07 Ty4tiUipWb6yCVNzDAK2 YZTrkQIwJ7GarZ8zKfZn CFXqTQAtH8CxlAXu JWliL692KBbiDtH7STHs ptOxX9DiTOKhjSxeEyQ0 g8K4Wv0NV3Z6FK83KT66 ySMtj8E6nRB5I0Tz FUGfrkdipndnuGL5LBPm AWKhsT39Qx1dtTyfTb4u SLQrPUS1IRArxVYyW3Iv sF0hIcGhLKKdYMAh O1TuvPQiRLbqN653RLhz RlZ6JMMbfzBbH1LkKZCx iHqvCvT5p7G1Bm9DYTf0 YA56SN96bBOxo9E7 fGX2S0HiGEYsqlptarlo wNL7XMPuZRZvaF74Ew9o pTzoYf8kUXPaIDG2ODQt nQHfI2NdnS9xDhJd GRGwBROuR7GjqDYaOOvi S664RNvdAcH4VASesuAv T5VsQOIbnNqiFcP7z1V9 Eu8KOQYlEA24ERB3 xYW2FB82EJ21M2WuQxfz dGFibGU+PHRhYmxlIHdp ZHRoPScxMDAlJyBzdHls QL6wSt1qXVVsPQCh bZsilCChIvXds2vjHCHa YEbbDD6ioCzlJ0OewQQ5 TYJve5l9Dp59H50fJ5Re dXA+FENxfUH6wEQ0 eC2qMnPyNiE1QLxoL828 HuUdqZDyYqrpy2pjr4cp eYk6OhI8EHVtjtGmqXrc VUF9e0YtMc03C50k IHdpZHRoPSIxNSUiIHZh aLegma3moJ3nEd5+PGNv lEX8wUI1fC8lOgYoWjW6 RWmuM027HoXjqWPy Cthwq6xmb7lrhDj5RkMb LIRubwJacFzlRUL5m6Af Yn66M2TyhAiqw1HsHic8 ms63pVIgv9E0bGX8 X5UkLYWdxehplENvpGmm KC9eGKVdtuzgQTLmbP6x JSCjV6q8RmTrBsQ7MCxw N4YddbM9EBIijZDx BIfiMFC8X27qd7Y7LGUn EGZaRKG0pBD7bJ9bjQyy bjogbGVmdDsgdmVydGlj FOytASblB201ZNZa ePqkAOSswJ9jKTMtnDJm wBoaVJ3mMHLigxmjEt7O WGAKHlhfCGSCV1fJCW04 PT04zNPuw1Z3cTD7 G3HnWQNgzruqbxglvXA4 YCMbLMLkmF60tNXpDJvi Kk3rr5L7y245YXQsLRZk jB79Sw6dcIfdXCBg uFZCyJ2ekptpk1uqfgkt IbNjNHDzWTd8JYz0AJKs iExpToDjPZK8VoW7CZA4 bEHskZ1dbYkxywry vC3aBxt+MDkvMzAvMTk1 MDwvdGQ+NEAuADQ2eQqi OQhbHXRyoW3eIIBpN6w8 NmWiWiA4JPzbB5Df QUPtigsqBg34jA7rHeIy DhY2UHqiN6OrxcD7IJTl gRMfBUylVTG1C10db8A5 FAIpZLYoMMI5zAE7 zI2itJwfjibqqSXmxPhr abZomUzxNVpqXAqeK043 IHRvcDsnPjcyIFllYXJz VD49XK42oTVsu2W9 xKY6G4TmGYSbquhnhulx mJL6WWXdGEFbxW81xRUi GAzfLc9nm3T0j443TSLv FTCurF31Oa6dyYrd LCLthJFCaT5klduyd8xg kjwgSwNnYHUhETg6PSg2 YIBihQygXcPaEUG3OtF9 UAW1gZOngW7cwQqd ajmkpV7dTgu+RmVtYWxl GI80HQ96mSTjj6D4bSV0 N2PxMDZpdxkcgsiurKF4 GDPrLZRwmZ96qVWv ZSitDs3qa0O5q555PSAj ZHWcvZ31Ho4ezXjvYNXf eBAXtD2grwpue5xfwbay MgBlYNKtFBv8LRk0 LSRsrSbvCqMpRNI1CcY7 WWC2fNOicS0rdNcamryc bI8aWde+FLVuAERks3Wk e7RaXO61SE47Y2Wt PjwvdGFibGU+PHRhYmxl IHdpZHRoPScxMDAlJyBz nSpwUW2uBb5nSZPlLUXx dCzzmYPpBlTji4jj JFLtHAxlKD2kpAzwC0Dv qDA3JIQui9r9Ux31U45v K1EklMY+NOOhdPB8cUO7 lV0pTsMeQaY2NOhz V251ViIvjMZuZweym8pa j0hlvVm2FzXcICQvyhDi gFedVEV9s1RlPa20Q13w IHdpZHRoPSIyMCUi EYKvdXgrrw6acM8cDa9+ OFWowJK6gWB3eF0mVeVo YcZ0YLsoU605OqYwrJZq CoyeE20sJ1TeeAG+ MDFfRtv1FVYfvJxeWW7e nRYfYOgzJs3jSCE2CiTt FaNdNBvhW7DxFKFsokkh xwvllUS7JIJcZMEh vC74Xw6xdMndJo4zGNIn ZPP0BKXrsOPeV8WdyG4h QdAnFJExJXVtG6ZtbNOz GMiwI643PBsxBbP7 ABOswxDzX4WrKHKkuNcy OsW5x8L4Ea8NoEydjQQw ID2aFjIyFKt2W1UxUzt6 QESjpXxcBP5cxRPj OTpbCf5xlJfbyKutLY3i FAUbzkbrp875GhEue9ip AIZtpJWwUFvsZSV7Z61f c8G8BYXpMGZeAAW6 sOO3bK1yhOfnnlhrbUEi dDsgdmVydGljYWwtYWxp M822KRKtrNvdBoLQKyj9 B1XxEbn8JRSfaCbr JR4rrOUvCIgwJt0wgMus bSarBY7fAHAsrurwb771 UqEyw4svSZUqaNDuROcm VYZ2O71ep5G8RPCe LEZpKZB9kDM9yO2bjHqq bjogbGVmdDsgdmVydGlj MKvdIJleK818HPYkoBuf Ev3DYje3Q4WgDvv0 OJKjbSuuHA7tgVIhMLbd Bx2lbKtohSgxRQ4eGWBl tjila698NrIgh8bpRQDi yPJuCTqpETP8G51y x8P2VGMvOOZrGZO3yZZ1 aF3goNlpirjshBOypAzg giZlyUwdNGkdSFjiP924 IHRvcDsnPlBheWVy OjwvdGQ+OB45kq86Y0Gg LbmpWfn1NPUgQWP9pMR0 vG1jHWGuQHkth3A5iUI1 X2NeqkUsbj0ga0io YXBz (more content not included)... Normal [facility] Blood Gas Art, with Lytes, Barb maria t, [place] 11-11-2022 a/A Ratio Art 72.90 % Normal >=0.80 [facility] Comment on above: Performed By: #### 4 [id number] #### [facility] [address] [place] [address] AaDO2 Art 24.8 mmHg High 5.0-15.0 [facility] Comment on above: Performed By: #### 4 [id number] #### [facility] [address] [place] [address] Allens Test Positive Normal [facility] Comment on above: Performed By: #### 4 [id number] #### [facility] [address] [place] [address] Base Excess Arterial 4.8 mmol/L Normal >=2.8 [facility] Comment on above: Performed By: #### 4 [id number] #### [facility] [address] [place] [address] cCa2+ Art 4.72 mg/dL Normal 4.40-5.30 [facility] Comment on above: Performed By: #### 4 [id number] #### [facility] [address] [place] [address] cCl- Art 105.0 mmol/L Normal 101.0-111.0 [facility] Comment on above: Performed By: #### 4 [id number] #### [facility] [address] [place] [address] cGlu Art 125 mg/dL High 55-99 [facility] Comment on above: Performed By: #### 4 [id number] #### [facility] [address] [place] [address] cK+ Art 4.0 mmol/L Normal 3.5-5.3 [facility] Comment on above: Performed By: #### 4 [id number] #### [facility] [address] [place] [address] cLac Art 1.1 mmol/L Normal .5-2.2 [facility] Comment on above: Performed By: #### 4 [id number] #### [facility] [address] [place] [address] paraprofessional aide+ Art 143.0 mmol/L Normal 135.0-145.0 [facility] Comment on above: Performed By: #### 4 [id number] #### [facility] [address] [place] [address] Drawn by JEREMIAH Invalid Interpretation Code [facility] Comment on above: Performed By: #### 4 [id number] #### [facility] [address] [place] [address] FCOHb Art 1.1 % Low 1.5-4.9 [facility] Comment on above: Result Comment: Refe rence range Nonsmoker <1.5% Smoker <5.0% Heavy Smoker <9.0% Performed By: #### 4 [id number] #### [facility] [address] [place] [address] FIO2 BG 21 Invalid Interpretation Code [facility] Comment on above: Performed By: #### 4 [id number] #### [facility] [address] [place] [address] FMetHb Art 0.3 % Normal 0.0-1.9 [facility] Comment on above: Performed By: #### 4 [id number] #### [facility] [address] [place] [address] FO2Hb Art 93.3 % Normal 92.0-100.0 [facility] Comment on above: Performed By: #### 4 [id number] #### [facility] [address] [place] [address] HCO3 (Bld) [Moles/Vol] 28.7 mmol/L High 22.0-26.0 [facility] Comment on above: Performed By: #### 4 [id number] #### [facility] [address] [place] [address] Hemoglobin (Bld) [Mass/Vol] 13.5 g/dL Normal 12.0-16.0 [facility] Comment on above: Performed By: #### 4 [id number] #### [facility] [address] [place] [address] Oxygen saturation in Blood 94.6 % Low 95.0-100.0 [facility] Comment on above: Performed By: #### 4 [id number] #### [facility] [address] [place] [address] P CO2 Arterial 46.1 mmHg High 35.0-45.0 [facility] Comment on above: Performed By: #### 4 [id number] #### [facility] [address] [place] [address] P O2 Arterial 66.9 mmHg Low 80.0-100.0 [facility] Comment on above: Performed By: #### 4 [id number] #### [facility] [address] [place] [address] pH Arterial 7.423 Normal 7.350-7.450 [facility] Comment on above: Performed By: #### 4 [id number] #### [facility] [address] [place] [address] Sample Site R Radial Normal [facility] Comment on above: Performed By: #### 4 [id number] #### [facility] [address] [place] [address] Sample Type Arterial Draw Normal [facility] Comment on above: Performed By: #### 4 [id number] #### [facility] [address] [place] [address] CARDIAC STRESS TESTon 2022 CARDIAC STRESS TEST [...] ambulatory oxygen. Clinical correlation required. Normal [facility] HEMOGLOBINon 11-11-2022 Hemoglobin (Bld) [Mass/Vol] 13.1 g/dL Normal 12.0-16.0 [facility] Comment on above: Performed By: #### P OCGLUC #### [facility] [address] [address] [address] Demetrio Kan LAB TESTINGon 11-11-2022 RECV HEADER SEE SCANNED REPORT IN HPF [facility] Comment on above: Performed By: #### M ISC ####[facility] [address] [address]Dr. Demetrio Kan REV FROM REF LAB 11/11/2022 [facility] Comment on above: Performed By: #### M ISC ####[facility] [address] [address]Dr. Demetrio Kan SENT TO REF LAB 11/11/2022 Normal [facility] Comment on above: Performed By: #### M ISC ####[facility] [address] [address]Dr. Demetrio Kan Physician Orderon 11-11-2022 Physician Order [id number] [id number]:127 Normal [facility] Social History Date Type Detail Facility Start: 02-08-2024 [facility] Start: 11-13-2020 End: 10-18-2023 [facility] Start: 10-18-2023 Alcohol intake Current non-dr edge inker heels of alcohol (finding) [facility] Start: 04-18-2023 Tobacco smoking stat us NHIS Occasional tobacco smoker [facility] Start: 11-13-2020 End: 04-18-2023 Cigarettes smoked current (pack per day) - [facility] Start: 04-18-2023 Tobacco use and exposure Smokeless tobacco non-user [facility] Start: 04-18-2023 Tobacco Comment PT STATES HAS CUT BACK BEEN USING PATCHES TO HELP- SAID SHE SMOKES ABOUT 4 A DAY [facility] Start: 1950 Sex Assigned At Not on file P [facility] Start: 1950 Sex Assigned At Female F [facility] Unknown if ever smoked [employer] Other End: 10-03-2022 History of tobacco use [facility]igarette [facility] Adolescent depressio n screening assessment 0 [facility] Vital Signs Date Time Vital Sign Value Performing Clinician Facility 02-08-2024 11:03-0400 Body height 152.4 cm [facility] 02-08-2024 11:03-0400 Body mass index (BMI) [Ratio] 21.2 kg/m2 [facility] 02-08-2024 11:03-0400 Body weight 49.44 kg [facility] 02-08-2024 11:03-0400 Diastolic blood pressure 60 mm[Hg] [facility] 02-08-2024 11:03-0400 Heart rate 88 /min [facility] 02-08-2024 11:03-0400 SaO2% (BldA) [Mass fraction] 96 % [facility] 02-08-2024 11:03-0400 Systolic blood pressure 104 mm[Hg] [facility] 10-18-2023 13:13-0500 Body mass index (BMI) [Ratio] 21.64 kg/m2 Tasha Padgett MD Work Phone: [facility] 10-18-2023 13:13-0500 Body weight 50.26 kg Tasha Padgett MD Work Phone: [employer] 10-18-2023 13:13-0500 Diastolic blood pressure 56 mm[Hg] Tasha Padgett MD Work Phone: [employer] 10-18-2023 13:13-0500 Systolic blood pressure 108 mm[Hg] Tasha Padgett MD Work Phone: [employer] 08-03-2023 11:00-0400 Body height Lazara Hernandez Other [employer] Other 08-03-2023 11:00-0400 Body mass index (BMI) [Ratio] 20.89 kg/m2 Lazara Hernandez Other [employer] Other 08-03-2023 11:00-0400 Body weight 48.54 kg Lazara Hernandez Other [employer] Other 08-03-2023 11:00-0400 Diastolic blood pressure 64 mm[Hg] Lazara Hernandez Other [employer] Other 08-03-2023 11:00-0400 SaO2% (BldA) [Mass fraction] 98 % Lazara Hernandez Other [employer] Other 08-03-2023 11:00-0400 Systolic blood pressure 115 mm[Hg] Lazara Hernandez Other [employer] Other History of Present illness Narrative 10-18-2023 Tasha [...] TASHA PADGETT MD documented in this encounter [facility] Evaluation note 08-03-2023 Note Date [...] - Z95.5) Continues to follow with Cardiology --Oksana Johnson. Aug, Atherosclerotic cardiovascular disease (ICD-10 - [...] and willingness to quit at each appointment. [employer] Other Evaluation note Note Date & Type Note Facility Evaluation note No Information [employer] Other Evaluation note Note Date & Type Note Facility Evaluation note Diagnosis Midline cystocele- Primary Cystocele, midline documented in this encounter [facility] Evaluation note Note Date & Type Note Facility Evaluation note Diagnosis Onset Date Controlled type 2 diabetes m ellitus without complication acute Muscle cramping acute Restless leg syndrome acute [facility] Work Phone: History general Narrative - Reported Note Date & Type Note Facility History general Narrative - Reported Type Medical History diabetic Medical History hypertension Medical History heart attack Surgical History breast biopsy Surgical History stents x2 2013 Hospitalization History see surgical hx [facility] Other Instructions Note Date & Type Note Facility Instructions Not on filedocumented in this en counter [facility] Summary Purpose Family History Relationship Condition Age at Onset Recorded Date/T ameena father Unknown Heart disease Unknown Not Specified Unknown natural son Unknown sister Malignant neoplasm Unknown Advance Directives Latest Code Status on File Code Status Date Activated Date Inactivated Comments Full Code 12/19/2022 5:46 AM 12/19/2022 7:11 PM Code Status History Code Status Date Activated Date Inactivated Comments Full Code 10/04/2022 10:48 AM 10/05/2022 9:46 PM Advance Directive Response Recorded Date/ Time Advance Directives No April 19 6:40am Chief Complaint and Reason for Visit Chief Complaint [facility] Reason for Visit Controlled type 2 di abetes mellitus without complication Muscle cramping Restless leg syndrome Additional Source Comments INFORMATION SOURCE (unrecogn ized section and content) DATE CREATED AUTHOR 11/18/2022 [facility] DATE CREATED AUTHOR AUTHOR'S ORGANIZ ATION 01/17/2023 [facility] DATE CREATED AUTHOR AUTHOR'S ORGANIZ ATION 01/19/2024 [facility] DATE CREATED AUTHOR AUTHOR'S ORGANIZ ATION 01/25/[address] 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 [employer] provides no warranty or guarantee of the accuracy or completeness of information in this document.
--- NOTE | 2024-02-29 12:44 | MM_ITS ---
Patient Name: TRAN RAYA MR#: [id number] : 1950 Exam Date: 02/29/2024 Ordering Doctor: ASIM BANGURA PHYTOPATHOLOGIST-C RADIOLOGY REPORT PROCEDURE: MM TOMOSYNTHESIS SCREENING BI COMPARISON: MG MAMM SCREEN MADDIE W CAD, 11/23/2019. INDICATIONS: Screening Calculator Name NCI Breast Cancer Risk Assessment Tool 5 Year Breast Cancer Risk 1.90% Lifetime Breast Cancer Risk 4.70% Personal Breast Cancer No Personal Ovarian Cancer No Treatments None Family Cancers None LOCATION: [facility] BREAST COMPOSITION: The breasts are extremely dense, which lowers the sensitivity of mammography. FINDINGS: DIAGNOSTIC CATEGORY 2--BENIGN FINDING. NO CHANGE FROM COMPARISON. Very nodular parenchymal pattern limiting diagnostic sensitivity. Scattered benign-appearing nodules are present. Scattered benign-appearing calcifications are present. Scattered benign-appearing lymph nodes are present. RIGHT BREAST: No significant suspicious finding. LEFT BREAST: No significant suspicious finding. RECOMMENDATIONS: ROUTINE MAMMOGRAM AND CLINICAL EVALUATION IN 12 MONTHS. PLEASE NOTE: A NORMAL MAMMOGRAM DOES NOT EXCLUDE THE POSSIBILITY OF BREAST CANCER. A CLINICALLY SUSPICIOUS PALPABLE LUMP SHOULD BE BIOPSIED. Dictated by: Yovanny Pruett MD on 03/01/2024 at 12:18 Approved by: Yovanny Pruett MD on 03/01/2024 at 12:20
== END 2024-02-29 12:30 | disposition home or self-care (01) ==
LOC: MAMMO 12:29
PROVIDERS: PCP Nurse Practitioner Family; Visit Provider Nurse Practitioner Family
DX: Z12.31 Encounter for screening mammogram for malignant neoplasm of breast (principal); Z78.0 Asymptomatic menopausal state; Z13.820 Encounter for screening for osteoporosis; F17.210 Nicotine dependence, cigarettes, uncomplicated; M81.0 Age-related osteoporosis without current pathological fracture
CPT/HCPCS: 77063; 77067; 77080

== ENCOUNTER 2024-04-19 08:20 | Outpatient (OUT) | payer MEDICARE, OTHER, MEDICAID, SELFPAY ==
--- OUTSIDE RECORDS SUMMARY | 2024-04-19 08:27 | XMS_ITS ---
Patient Summarization (C-CDA 2.1 CCD) Created on: April 19, 2024 Lela Gutierrez : 1950 Sex: Female Author Organization Sample organization Care Team Providers Care Service Delivery Management Consultant Name Role Phone SAMSA, NAGA P Attending [...] PATEL Consulting Unavailable SISTER, MICHAEL Consulting Unavailable JOYC MUÑOZ Consulting Unavailable Lazara Hernandez Unavailable [phone] Wesley Valdivia DO Primary Care Provider TASHA [...] Unavailable HOUSE, WESLEY P Primary Care Unavailable TASHA PADGETT Attending Unavailable HOUSE, WESLEY P Referring Unavailable HOUSE, WESLEY P Primary Care Unavailable Allergies Allergy Classification Reported Allergen(s) Allergy Type Date of Onset Reaction(s) Facility (1 source) Ticagrelor Drug Allergy 12-29-2012 [facility] Repository (4 sources) Ticagrelor; Translations: [TICAGRELOR] Drug Allergy 11-19-2016 [facility] Encounters Encounter Date Encounter Type Care Provider Facility Start: 03-06-2024 End: 03-06-2024 ambulatory [facility] Work Phone: Start: 03-06-2024 End: 03-06-2024 Patient encounter procedure [facility] Work Phone: Start: 02-09-2024 Patient encounter procedure [facility] Start: 02-08-2024 End: 02-08-2024 ambulatory [facility] Work Phone: Start: 02-08-2024 End: 02-08-2024 Patient encounter procedure [facility] Work Phone: Start: 01-30-2024 End: 01-30-2024 ambulatory [facility] Start: 01-24-2024 End: 01-25-2024 ambulatory MICHELLE Shanta [facility] Start: 01-17-2024 End: 01-17-2024 ambulatory [facility] Start: 01-17-2024 End: 01-18-2024 ambulatory [facility] Start: 10-18-2023 End: 10-18-2023 ambulatory [facility] Start: 10-18-2023 End: 10-18-2023 Office outpatient visit 15 minutes Tasha Padgett MD Work Phone: [facility] Comment on above: Midline cystocele (P rimary Dx) Start: 08-08-2023 End: 08-08-2023 ambulatory Lazara Hernandez [employer] Other Start: 08-08-2023 Telephone encounter Lazara Darden [facility] Start: 08-03-2023 End: 08-03-2023 ambulatory Lazara Hernandez [employer] Other Start: 08-03-2023 Office outpatient ne w 30 minutes Lazara Hernandez [facility] Start: 01-11-2023 End: 01-12-2023 ambulatory NAGA SAM . Facility: Start: 12-29-2022 End: 12-31-2022 Evaluation and management of inpatient DR WESLEY VALDIVIA Facility: Start: 11-17-2022 End: 11-18-2022 ambulatory NAGA SAMSA . Facility: Start: 11-11-2022 End: 11-12-2022 ambulatory NAGA P SAMSA [facility] Start: 11-11-2022 End: 11-12-2022 ambulatory NAGA SAMSA . Facility: Start: 01-24-2018 End: 09-08-2020 Patient encounter status Tasha Padgett MD Work Phone: [employer] Work Phone: Immunizations Immunization Date Immunization Notes Care Provider [facility] 02-08-2024 Pneumococcal Conjuga te Vaccine, 20 [facility] 06-26-2016 influenza, high dose seasonal, preservative-free Tasha Padgett MD Work Phone: [facility] 09-10-2015 influenza, seasonal, injectable Tasha Padgett MD Work Phone: [facility] 09-10-2015 pneumococcal conjuga te vaccine, 13 valent Tasha Padgett MD Work Phone: [facility] Medications Current Medications Medication Drug Class(es) Dates [...] 12/19/2022 Active atorvastatin 80 mg oral tablet (5 sources) HMG-CoA Reductase Inhibitor Start: 01-30-2024 take [...] / glycopyrrolate 0.009 mg/actuat metered dose inhaler (4 sources) Corticosteroid, beta2-Adrenergic Agonist Start: 01-30-2024 take 1 puff(s) by inhalation twice daily Kuouakznly-Hxhfhhaz-Rrgggbdfeb Active 2 PUFF INHALATION Twice daily January 30, 2024 12:00am take 2 puff(s) by inhalation twi ce daily Breztri Aerosphere 160-9-4.8 MCG/ACT 2 puffs Inhalation Twice a day Active furosemide 20 mg oral tablet (5 sources) Loop Diuretic Start: 01-30-2024 take 20 [...] 1 Application lisinopril 5 mg oral tablet (5 sources) Angiotensin Converting Enzyme Inhibitor Start: 01-30-2024 take 5 mg by mouth once daily Lisinopril Active 5 MG PO Daily January 30, 2024 12:00am Start: 02-07-2023 take 1 tablet by jarret th in the morning lisinopriL (PRINIVIL,ZESTRIL) 5 mg tablet Take 1 tablet (5 mg total) by mouth in the morning. 90 tablet 3 02/07/2023 Active magnesium oxide 400 mg oral tablet (1 source) Start: 02-09-2024 take 1 tablet by mouth once daily Magnesium Oxide (Magox) 400 mg (241.3 mg magnesium) tablet Active 400 MG PO Daily February 09, 2024 12:00am metFORMIN hydrochloride 500 mg oral tablet (5 sources) Biguanide Start: 01-30-2024 take 500 mg [...] ranolazine 500 mg extended release oral tablet (5 sources) Anti-anginal Start: 01-30-2024 take 500 mg [...] aspirin 81 mg delayed release oral tablet (2 sources) Platelet Aggregation Inhibitor, Nonsteroidal Anti-inflammatory Drug Start: [...] (1 source) Nonsteroidal Anti-inflammatory Drug Start: 12-20-19 23 End: 10-18-19 24 take 1 tablet by [...] Not-Taking pramipexole dihydrochloride 1 mg oral tablet (5 sources) Nonergot Dopamine Agonist Start: 01-30-20 24 End: 02-08-20 24 take 1 mg by mouth once daily at bedtime Pramipexole Discontinued 1 MG PO Daily at bedtime January 30, 2024 12:00am February 08, 2024 11:31am Start: 08-03-2023 pramipexole (M IRAPEX) 1 mg tablet Payers Date Payer Category Payer Unknown [facility] INSURANCE [facility] INSURANCE [id number] 2021-Present [phone] [address] [place] [address] [id number] 2015 Medicare MEDICARE MEDICAR E PART A & B [id number] 2015-Present [phone] [address] [place] [address] [id number] 1959 Medicare [id number] 1959 Unknown [id number] 1950 Unknown [id number] [id number]. 2.727 1950 Unknown [id number] 2.16.840.1.755714.3.579. 2.593 1950 Unknown [id number] 2.16.840.1.681167.3.579. 2.593 1950 Unknown [id number] 2.16.840.1.383616.3.579. 2.593 1950 Unknown [id number] 2.16.840.1.905272.3.579. 2.593 1950 Unknown [id number] 2.16.840.1.291407.3.579. 2.1286 1950 Unknown [id number] 2.16.840.1.606170.3.579. 2.1286 1950 Unknown [id number] 2.16.840.1.298515.3.579. 2.1286 1950 Unknown [id number] 2.16.840.1.476574.3.579. 2.1286 1950 Unknown [id number] 2.16.840.1.016319.3.579. 2.1286 1950 Unknown [id number] 2.16.840.1.141181.3.579. 2.1286 1950 Unknown [id number] [id number]. 2.1286 Private Health Insurance [employer] [facility] [id number] Self-pay Self Pay [id number] Unknown Regular Insurance [id number] Plan of Treatment Date Care Activity Detail Author Start: 10-18-2024 Adult BMI Screening Adult BMI Screening [facility] Start: 10-18-2024 Tobacco Screening Tobacco Screening [facility] Start: 03-06-2024 Patient referral [facility] Work Phone: Start: 01-30-2024 End: 01-30-2024 Patient encounter procedure 01/30/2024 1:00 PM EDT [facility] Visit [facility] [address] [place] [address] [place] [address] SabinoJose, GAMBLING CASHIER-HIDE GRADER [address], [address] [address] [facility] Start: 01-24-2024 End: 01-24-2024 Patient encounter procedure [facility] Start: 01-17-2024 End: 01-17-2024 Patient encounter procedure 01/17/2024 1:00 PM EDT [facility] Visit [facility] [address] [place] [id number] Tasha Padgett MD [address] [place], [place] [id number] [facility] Start: 10-28-2022 Depression Screening Depression Screening [facility] Start: 2015 Fall Risk Screening Fall Risk Screening [facility] Start: 1969 DTaP,Tdap and Td Vaccines (1 - Tdap) DTaP,Tdap and Td Vaccines (1 - Tdap) [facility] Start: 1950 Medicare Annual Wellness Visit Medicare Annual Wellness Visit [facility] Start: 1950 Tobacco Counseling Tobacco Counseling [facility] Comprehensive metabo lic 2000 panel - Serum or Plasma [facility] DXA Skeletal system. axial Views for bone density [facility] MG Breast - bilatera l Screening [facility] Patient referral [facility] Work Phone: [facility] Problems Active Problems Problem Classification Problem [...] disease (5 sources) Atherosclerotic heart disease of rincon coronary artery without angina pectoris; Translations: [Disorder of cardiovascular system] Onset: 08-02-2018 Chronic Coronary atherosclerosis and other heart disease (2 sources) Presence of coronary angioplasty implant and graft; Translations: [PRESENCE COR ANGPLSTY IMPLANT AND GRAFT] Onset: 01-05-2023 Episodic Diabetes mellitus without complication (7 sources) Type 2 diabetes mellitus without complication; [...] arteries] Onset: 02-14-2017 Resolved: 01-04-2019 02-14-2017 Chronic Osteoporosis (2 sources) Osteoporosis; Translations: [Age-related osteoporosis without current pathological fracture] 03-06-2024 Chronic Other aftercare (1 source) Other chcf (current) drug therapy; Translations: [OTH WEBSITE/BLOG EDITOR CURRENT DRUG THERAPY] Onset: 01-05-2023 Episodic Other aftercare (1 source) FPC (current) use of oral hypoglycemic drugs; Translations: [PENITENTIARY USE ORAL HYPOGLYCEMIC DX] Onset: 01-05-2023 Episodic Other connective tissue disease (2 sources) Cramp; Translations: [Cramp and spasm] 02-08-2024 Episodic Other connective tissue disease (2 sources) Cramp and spasm; Translations: [Cramp of limb] [...] Other hereditary and degenerative nervous system conditions (4 sources) Restless legs; Translations: [Restless legs syndrome] 02-08-2024 Chronic Other hereditary and degenerative nervous system conditions (3 sources) Restless legs syndrome; Translations: [Restless legs syndrome (RLS)] Chronic Other injuries and conditions due to external causes (1 source) History of falling; Translations: [HISTORY OF FALLING] Onset: 01-05-2023 Episodic Other screening for suspected conditions (not mental disorders or infectious disease) (6 sources) Patient encounter status; Translations: [Encounter for screening for osteoporosis] 02-09-2024 Episodic Peripheral and visceral atherosclerosis (8 sources) Peripheral vascular disease, unspecified; Translations: [Peripheral vascular disease] Onset: 11-22-2016 11-22-2016 Chronic Pneumonia (except that caused by tuberculosis or sexually transmitted disease) (1 source) Pneumonia, unspecified organism; Translations: [PNEUMONIA UNSPECIFIED ORGANISM] Onset: 01-05-2023 Episodic Prolapse of female genital organs (4 sources) Midline cystocele; Translations: [Cystocele, midline] Onset: 10-26-2017 10-18-2023 Chronic Residual codes; unclassified (1 source) Postmenopausal state; Translations: [Asymptomatic menopausal state] 02-09-2024 Episodic Residual codes; unclassified (1 source) Asymptomatic menopausal state; Translations: [Asymptomatic postmenopausal status (age-related) (natural)] 02-08-2024 Episodic Respiratory failure; insufficiency; arrest (adult) (7 sources) [...] sepsis, unspecified] Onset: 12-29-2022 Episodic Substance-related disorders (6 sources) Nicotine dependence, cigarettes, with withdrawal; Translations: [...] Test Name Value Interpretation Reference Range Facility Estimated glomerular filtrat ion rate (GFR) non- Americanon 02-08-2024 GFR/1.73 sq M.predicted among non-blacks MDRD (S/P/Bld) [Vol rate/Area] 60 mL/min/{1.73_m2} >=60 [facility] Globulin Calc (S) [Mass/Vol] on 02-08-2024 Globulin (S) [Mass/Vol] 3.3 g/dL [facility] HbA1c HPLC (Bld) [Mass fract ion]on 02-08-2024 HbA1c (Bld) [Mass fraction] 6.9 % [facility] Laboratory - Chemistry and C hemistry - challengeon 02-08-2024 Albumin [Mass/Vol] 3.3 g/dL 3.4-5.0 [facility] ALP [Catalytic activity/Vol] 119 U/L 46-116 [facility] ALT [Catalytic activity/Vol] 32 U/L 14-59 [facility] AST [Catalytic activity/Vol] 20 U/L 15-37 [facility] Bilirubin [Mass/Vol] 0.7 mg/dL 0.2-1.[address] [facility] Calcium [Mass/Vol] 9.5 mg/dL 8.5-10.1 [facility] Chloride [Moles/Vol] 105 mmol/L 98-[address] [facility] CO2 [Moles/Vol] 30.9 mmol/L 21.0-32.0 [facility] Creatinine [Mass/Vol] 0.92 mg/dL 0.55-1.02 [facility] GFR/1.73 sq M.predicted MDRD (S/P/Bld) [Vol rate/Area] mL/min/{1.73_m2} >=60 [facility] Glucose [Mass/Vol] 110 mg/dL 74-106 [facility] Magnesium [Mass/Vol] 1.8 mg/dL 1.8-2.[address] [facility] Potassium [Moles/Vol] 3.9 mmol/L 3.5-5.1 [facility] Protein [Mass/Vol] 6.6 g/dL 6.4-8.2 [facility] Sodium [Moles/Vol] 142 mmol/L 136-145 [facility] Urea nitrogen [Mass/Vol] 21.0 mg/dL 7.0-18.0 [facility] Urea nitrogen/Creatinine [Mass ratio] 22.8 mg/mg [facility] Serum or plasma albumin/glob ulin mass ratioon 02-08-2024 Albumin/Globulin [Mass ratio] 1.0 {ratio} [facility] Serum or plasma anion gap de terminationon 02-08-2024 Anion gap [Moles/Vol] 10.0 mmol/L [facility] VAGINITIS PANEL PCRon 2023 VAGINITIS PANEL PCR [...] clinical presentation to determine patient diagnosis. Normal [facility] Comment on above: Performed By: #### V PPCR #### [facility] ([id number]) [address] [place] [address], [address] [place] [address] TRANSFERRINon 01-12-2023 Transferrin [Mass/Vol] 234 mg/dL Normal 192-364 [facility] Comment on above: Performed By: #### P OCGLUC #### [facility] [address] [place] [id number] [address] Demetrio Kan CBC AUTO DIFFon 01-11-2023 BASO # 0.1 103/ul Normal 0.0-0.1 [facility] Comment on above: Performed By: #### C BC, RETIC #### [facility] [address] [address] [address] Demetrio Kan Basophils/100 WBC (Bld) 0.8 % Normal 0.2-2.0 [facility] Comment on above: Performed By: #### C BC, RETIC #### [facility] [address] [place] [address] Dr. Demetrio Kan EO # 0.1 103/ul Normal 0.0-0.7 [facility] Comment on above: Performed By: #### C BC, RETIC #### [facility] [address] [place] [address] Dr. Demetrio Kan Eosinophils/100 WBC (Bld) 1.1 % Normal 0.9-7.0 [facility] Comment on above: Performed By: #### C PHIL, RETIC #### [facility] [address] [place] [address] Dr. Demetrio Kan Erythrocyte distribution width (RBC) [Ratio] 14.6 % Normal 11.0-15.0 [facility] Comment on above: Performed By: #### C PHIL, RETIC #### [facility] [address] [place] [address] Dr. Demetrio Kan Hematocrit (Bld) [Volume fraction] 39.4 % Normal 36.0-48.0 [facility] Comment on above: Performed By: #### C PHIL, RETIC #### [facility] [address] [place] [address] Dr. Demetrio Kan Hemoglobin (Bld) [Mass/Vol] 12.6 g/dL Normal 12.0-16.0 [facility] Comment on above: Performed By: #### C BC, RETIC #### [facility] [address] [place] [address] Dr. Demetrio Kan IG # 0.05 10e3/ul Critically high 0.00-0.03 [facility] Comment on above: Performed By: #### C BC, RETIC #### [facility] [address] [place] [address] Dr. Demetrio Kan IG % 0.6 % Critically high 0.0-0.5 [facility] Comment on above: Performed By: #### C PHIL, RETIC #### [facility] [address] [address] [address] Demetrio Kan LYMPH # 1.2 103/ul Normal 1.2-3.8 [facility] Comment on above: Performed By: #### C BC, RETIC #### [facility] [address] [address] [address] Demetrio Kan Lymphocytes/100 WBC (Bld) 14.3 % Critically low 20.5-60.0 [facility] Comment on above: Performed By: #### C BC, RETIC #### [facility] [address] [address] [address] Demetrio Kan MANUAL DIFF REQ NO Normal [facility] Comment on above: Performed By: #### C BC, RETIC #### [facility] [address] [place] [address] Dr. Demetrio Kan MCH (RBC) [Entitic mass] 31.0 pg Normal 26.7-34.0 [facility] Comment on above: Performed By: #### C BC, RETIC #### [facility] [address] [place] [address] Dr. Demetrio Kan MCHC (RBC) [Mass/Vol] 32.0 g/dL Normal 29.9-35.2 [facility] Comment on above: Performed By: #### C BC, RETIC #### [facility] [address] [place] [address] Dr. Demetrio Kan MCV (RBC) [Entitic vol] 97.0 fL Normal 81.0-99.0 [facility] Comment on above: Performed By: #### C BC, RETIC #### [facility] [address] [place] [address] Dr. Demetrio Kan MONO # 0.7 103/ul Normal 0.3-0.8 [facility] Comment on above: Performed By: #### C BC, RETIC #### [facility] [address] [place] [address] Dr. Demetrio Kan Monocytes/100 WBC (Bld) 8.7 % Normal 1.7-12.0 [facility] Comment on above: Performed By: #### C BC, RETIC #### [facility] [address] [address] [address] Demetrio Kan NEUT # 6.3 103/ul Normal 1.4-6.5 [facility] Comment on above: Performed By: #### C BC, RETIC #### [facility] [address] [address] [address] Demetrio Kan Neutrophils/100 WBC (Bld) 74.5 % Normal 43.0-75.0 [facility] Comment on above: Performed By: #### C BC, RETIC #### [facility] [address] [address] [address] Demetrio Kan Platelet mean volume (Bld) [Entitic vol] 9.6 fL Normal 9.5-13.5 [facility] Comment on above: Performed By: #### C BC, RETIC #### [facility] [address] [place] [address] Dr. Demetrio Kan PLT 275 103/ul Normal 150-450 [facility] Comment on above: Performed By: #### C BC, RETIC #### [facility] [address] [place] [address] Dr. Demetrio Kan RBC 4.06 106/ul Critically low 4.20-5.40 [facility] Comment on above: Performed By: #### C BC, RETIC #### [facility] [address] [place] [address] Dr. Demetrio Kan WBC 8.5 103/ul Normal 4.0-11.0 [facility] Comment on above: Performed By: #### C BC, RETIC #### [facility] [address] [place] [address] Dr. Demetrio Kan FERRITINon 01-11-2023 Ferritin [Mass/Vol] 323.0 ng/mL Critically high 8.0-252.0 [facility] Comment on above: Performed By: #### C MP, BNP, CMADM #### [facility] [address] [address] [address] Demetrio Kan IRON AND TIBCon 01-11-2023 % SATURATION 28.6 % Normal [facility] Comment on above: Performed By: #### C MP, BNP, CMADM #### [facility] [address] [place] [address] Dr. Demetrio Kan Iron [Mass/Vol] 79.0 ug/dL Normal 50.0-170.0 [facility] Comment on above: Performed By: #### C MP, BNP, CMADM #### [facility] [address] [place] [address] Dr. Demetrio Kan TIBC DIRECT 276.0 ug/dL Normal 250.0-450.0 [facility] Comment on above: Performed By: #### C MP, BNP, CMADM #### [facility] [address] [place] [address] Dr. Demetrio Kan RETICULOCYTEon 01-11-2023 RETIC 1.71 % Normal 0.60-3.10 [facility] Comment on above: Performed By: #### C BC, RETIC #### [facility] [address] [place] [address] Dr. Demetrio Kan VIT B12 AND FOLATEon 023 Cobalamin (Vitamin B12) [Mass/Vol] 771.0 pg/mL Normal 193.0-986.0 [facility] Comment on above: Performed By: #### P OCGLUC #### [facility] [address] [place] [address] Dr. Demetrio Kan FOLATE 10.00 ng/mL Normal 8.60-58.90 [facility] Comment on above: Performed By: #### P OCGLUC #### [facility] [address] [place] [address] Dr. Demetrio Kan CULTURE SPUTUMon 01-01-2023 CULTURE [...] Trimethoprim/Sulfame thoxazole <=20 S F Normal [facility] Comment on above: Performed By: #### S PUTCX ####[facility] [address] [place], [place] [address]Dr. Demetrio Kan CBC W MANUAL DIFFon 01-01-20 23 ATYPICAL LYMPH # Normal [facility] Comment on above: Performed By: #### C JESSE ####[facility] [address] [place], [place] [address]Dr. Carolynelan Kan ATYPICAL LYMPH % Normal [facility] Comment on above: Performed By: #### C JESSE ####[facility] [address] [place], [place] [address]Dr. Carolynelan Kan BAND # 0.0 103/ul Normal 0.0-0.3 [facility] Comment on above: Performed By: #### C JESSE ####[facility] [address] [place], [place] [address]Dr. Yilan Kan BAND % 0 % Normal 0-5 [facility] Comment on above: Performed By: #### C JESSE ####[facility] [address] [place], [place] [address]Dr. Carolynelan Kan BASOM # 0.00 103/ul Normal 0.00-0.10 [facility] Comment on above: Performed By: #### C JESSE ####[facility] [address] [place], [place] [address]Dr. Yilan Kan BASOM % 0.0 % Critically low 0.2-2.0 [facility] Comment on above: Performed By: #### C BCMAN ####[facility] [address] [id number] Demetrio Kan BLAST # Normal [facility] Comment on above: Performed By: #### C BCMAN ####[facility] [address] [id number][address] Demetrio Kan BLAST % Normal [facility] [facility] Comment on above: Performed By: #### C BCMAN ####[facility] [address]igxqfuc[address] [place] [id number]. Demetrio Kan CORRECTED WBC Normal 4.0-11.0 [facility] Comment on above: Performed By: #### C BCTEDDY ####[facility] [address] [place], [place] [address]Dr. Demetrio Kan EOS # 0.00 103/ul Normal 0.00-0.70 [facility] Comment on above: Performed By: #### C BCTEDDY ####[facility] T[address]akxk[address] [place], [place] [address]Dr. Demetrio Kan EOS% 0.0 % Critically low 0.9-7.[address] [facility] Comment on above: Performed By: #### C BCTEDDY ####[facility] Qyxvhqlsix[address] [place], [place] [address]Dr. Demetrio Kan HCT 32.1 % Critically low 36.0-48.0 [facility] Comment on above: Performed By: #### C BCMAN ####[facility] Fsyzpobjse[address] [place], [place] [address]Dr. Demetrio Kan HGB 10.4 g/dl Critically low 12.0-16.0 [facility] Comment on above: Performed By: #### C BCMAN ####[facility] Qvlsjwqj[address] [place], [place] [address]Dr. Demetrio Kan LYMPHM # 0.46 103/ul Critically low 1.20-3.80 [facility] Comment on above: Performed By: #### C BCMAN ####[facility] Yvqybxbrun57[address] [place], [place] [address]Ol. Demetrio Kan LYMPHM% 3.0 % Critically low 20.5-60.0 [facility] Comment on above: Performed By: #### C JESSE ####[facility] [address]qpuhnnbcq14[address] [place], [place] [address]Ag. Demetrio Kan MCH 30.1 pg Normal 26.7-34.0 [facility] Comment on above: Performed By: #### C JESSE ####[facility] Qviakcskdh5125 [place] [id number]. Demetrio Kan MCHC 32.4 g/dl Normal 29.9-35.2 [facility] Comment on above: Performed By: #### C JESSE ####[facility] Stqqcharab0346 [place] [id number]. Demetrio Kan MCV 93.0 fL Normal 81.0-99.0 [facility] Comment on above: Performed By: #### C JESSE ####[facility] Ysjmoloeoy6325 [place] [address]Dr. Demetrio Kan METAMYELOCYTE # Normal [facility] Comment on above: Performed By: #### C JESSE ####[facility] Orqarpaulp7506 [place] [address]Dr. Demetrio Kan METAMYELOCYTE % Normal [facility] Comment on above: Performed By: #### C JESSE ####[facility] Ecpgtrabik2951 [place] [address]Dr. Demetrio Kan MONOM# 0.15 103/ul Critically low 0.30-0.80 [facility] Comment on above: Performed By: #### C JESSE ####[facility] Nwwrzhumki3998 [place] [address]Dr. Demetrio Kan MONOM% 1.0 % Critically low 1.7-12.0 [facility] Comment on above: Performed By: #### C JESSE ####[facility] Brobrkjmnb2643 [place] [address]Dr. Demetrio Kan MPV 9.7 fL Normal 9.5-13.5 [facility] Comment on above: Performed By: #### C BCTEDDY ####[facility] Pcksjptpkg6923 [place] [address]Dr. Demetrio Kan MYELOCYTE # Normal [facility] Comment on above: Performed By: #### C JESSE ####[facility] Dueybiqlbp0980 [place], [place] [address]Uv. Demetrio Kan MYELOCYTE % Normal [facility] Comment on above: Performed By: #### C BCTEDDY ####[facility] Pztpvqwcal2201 [place] [id number]. Demetrio Kan NRBC Normal [facility] Comment on above: Performed By: #### C JESSE ####[facility] Gnmosuebhv7079 [place] [address]Dr. Demetrio Kan PLT 249 103/ul Normal 150-450 [facility] Comment on above: Performed By: #### C JESSE ####[facility] Nrxxnvdgor8633 [place] [address]Dr. Demetrio Kan RBC 3.45 106/ul Critically low 4.20-5.40 [facility] [place] [facility] Comment on above: Performed By: #### C JESSE ####[facility] [address] [place] [address]Dr. Demetrio Kan RDW 14.6 % Normal 11.0-15.0 [facility] Comment on above: Performed By: #### C JESSE ####[facility] Bxrheokfjl26[address] [place] [address]Dr. Demetrio Kan SEG # 14.59 103/ul Critically high 1.40-6.50 [facility] Comment on above: Performed By: #### C JESSE ####[facility] Bvjytelbjx5705 [place] [address]Dr. Demetrio Kan SEG % 96.0 % Critically high 43.0-75.0 [facility] Comment on above: Performed By: #### C JESSE ####[facility] Lvnrgprhwd5824 [place] [id number]. Demetrio Kan WBC 15.2 103/ul Critically high 4.0-11.0 [facility] Comment on above: Performed By: #### C BCMAN ####[facility] Wfzqxnrkxw[address] [place] [address]Dr. Demetrio Kan POINT OF CARE GLUCOSEon 12-03 Glucose [Mass/Vol] 252 mg/dL Critically high 74-106 [facility] Comment on above: Performed By: #### P OCGLUC #### [facility] [address] [place] [address] [address] Demetrio Kan Glucose [Mass/Vol] 294 mg/dL Critically high 74-106 [facility] Comment on above: Performed By: #### C MP, BNP, CMADM #### [facility] [address] [place] [address] [address] Demetrio Kan PROF 14(COMP METB)on 023 Albumin [Mass/Vol] 1.8 g/dL Critically low 3.4-5.0 [facility] Comment on above: Performed By: #### C MP, BNP, CMADM #### [facility] [address] [place] [address] [address] Demetrio Kan Albumin/Globulin [Mass ratio] 0.5 {ratio} [facility] Comment on above: Performed By: #### C MP, BNP, CMADM #### [facility] [address] [place] [address] [address] Demetrio Kan ALP [Catalytic activity/Vol] 101 U/L Normal 46-116 [facility] Comment on above: Performed By: #### C MP, BNP, CMADM #### [facility] [address] [place] [address] [address] Demetrio Kan ALT [Catalytic activity/Vol] 15 U/L Normal 14-59 [facility] Comment on above: Performed By: #### C MP, BNP, CMADM #### [facility] [address] [place] [address] [address] Demetrio Kan Anion gap [Moles/Vol] 9.7 mmol/L Normal [facility] Comment on above: Performed By: #### C MP, BNP, CMADM #### [facility] [address] [place] [address] [address] Demetrio Kan AST [Catalytic activity/Vol] 13 U/L Critically low 15-37 [facility] Comment on above: Performed By: #### C MP, BNP, CMADM #### [facility] [address] [place] [address] [address] Demetrio Kan Bilirubin [Mass/Vol] 0.2 mg/dL Normal 0.2-1.0 [facility] Comment on above: Performed By: #### C MP, BNP, CMADM #### [facility] [address] [place] [address] [address] Demetrio Kan Calcium [Mass/Vol] 9.0 mg/dL Normal 8.5-10.1 [facility] Comment on above: Performed By: #### C MP, BNP, CMADM #### [facility] [address] [place] [address] [address] Demetrio Kan Chloride [Moles/Vol] 105 mmol/L Normal 98-107 [facility] Comment on above: Performed By: #### C MP, BNP, CMADM #### [facility] [address] [place] [address] [address] Demetrio Kan CO2 [Moles/Vol] 27.8 mmol/L Normal 21.0-32.0 [facility] Comment on above: Performed By: #### C MP, BNP, CMADM #### [facility] [address] [place] [address] [address] Demetrio Kan Creatinine [Mass/Vol] 0.82 mg/dL Normal 0.55-1.02 [facility] Comment on above: Performed By: #### C MP, BNP, CMADM #### [facility] [address] [place] [address] [address] Demetrio Kan EGFR-AF ANGOLAN >60 Normal >=60 [facility] Comment on above: Performed By: #### C MP, BNP, CMADM #### [facility] [address] [place] [address] [address] Demetrio Kan EGFR-NON AF ANGOLAN >60 Normal >=60 [facility] Comment on above: Performed By: #### C MP, BNP, CMADM #### [facility] [address] [place] [address] [address] Demetrio Kan Globulin (S) [Mass/Vol] 3.8 g/dL Normal [facility] Comment on above: Performed By: #### C MP, BNP, CMADM #### [facility] [address] [place] [address] [address] Demetrio Kan Glucose [Mass/Vol] 268 mg/dL Critically high 74-106 [facility] Comment on above: Performed By: #### C MP, BNP, CMADM #### [facility] [address] [place] [address] [address] Demetrio Kan Potassium [Moles/Vol] 4.5 mmol/L Normal 3.5-5.1 [facility] Comment on above: Performed By: #### C MP, BNP, CMADM #### [facility] [address] [place] [address] [address] Demetrio Kan Protein [Mass/Vol] 5.6 g/dL Critically low 6.4-8.2 [facility] Comment on above: Performed By: #### C MP, BNP, CMADM #### [facility] [address] [place] [address] [address] Demetrio Kan Sodium [Moles/Vol] 138 mmol/L Normal 136-145 [facility] Comment on above: Performed By: #### C MP, BNP, CMADM #### [facility] [address] [place] [address] [address] Demetrio Kan Urea nitrogen [Mass/Vol] 30.0 mg/dL Critically high 7.0-18.0 [facility] Comment on above: Performed By: #### C MP, BNP, CMADM #### [facility] [address] [place] [address] Dr. Demetrio Kan Urea nitrogen/Creatinine [Mass ratio] 36.6 mg/mg Normal [facility] Comment on above: Performed By: #### C MP, BNP, CMADM #### [facility] [address] [place] [address] Dr. Demetrio Kan XR CHEST 1 Von 12-31-2022 XR CHEST 1 V EXAM: XR CHEST 1 V HISTORY: SHORTNESS OF BREATH COMPARISON: 12/29/2022. TECHNIQUE: Chest X-ray AP, 1 view. FINDINGS: Support devices: None. Lungs/pleura: Bibasilar airspace opacities do not appear substantially changed compared to telecommunications repairer image of 12/29/2022. Persistent bibasilar airspace opacities. Blunting of costophrenic angles likely represents airspace disease, trace/small effusions and be difficult to exclude. No evidence of pneumothorax. Heart and mediastinum: Stable contours compared to prior examination. Bones: No acute abnormality identified. IMPRESSION: Persistent bibasilar airspace disease/consolidatio ns. Electronically authenticated by: JOCY MUÑOZ Date: 2022-12-31 08:22 Normal [facility] BLOOD GASES BTYon 12-30-2022 02 MODE NASAL CANNULA Normal [facility] Comment on above: Performed By: #### A BG ####[facility] [address]kv[address] [place] [address]Dr. Demetrio Kan ALLENS TEST Positive Normal [facility] Comment on above: Performed By: #### A BG ####[facility] Gsoqavmuy[address] [place], [place] [address]DrPham Kan Base excess Calc (Bld) [Moles/Vol] 6.0 mmol/L Critically high -2.0-2.0 [facility] Comment on above: Performed By: #### A BG ####[facility] Hrsied[address] [place], [place] [address]Dr. Demetrio Kan BIPAP PRESSURE Normal [facility] Comment on above: Performed By: #### A BG ####[facility] [address]uw[address]ievv[address] [place] [address]Dr. Demetrio Kan CPAP Normal [facility] Comment on above: Performed By: #### A BG ####[facility] [address] [place] [address]Dr. Demetrio Kan FIO2 Normal [facility] Comment on above: Performed By: #### A BG ####[facility] X[address]wjuk[address] [place] [address]Dr. Demetrio Kan HCO3 (Bld) [Moles/Vol] 28.7 mmol/L Critically high 22.0-26.0 [facility] Comment on above: Performed By: #### A BG ####[facility] [address]xfr[address] [place] [address]Dr. Demetrio Kan LPM 6 Normal [facility] Comment on above: Performed By: #### A BG ####[facility] Pdiagijaqm66[address] [place] [address]DrPham Kan MINUTE VOLUME Normal [facility] Comment on above: Performed By: #### A BG ####[facility] Tevjdtszzb[address] [place] [address]Dr. Demetrio Kan Oxygen (Bld) [Partial pressure] 102.0 mm[Hg] Critically high 80.0-100.0 [facility] Comment on above: Performed By: #### A BG ####[facility] Vvxgpnphcn[address] [place], [place] [address]Dr. Demetrio Kan Oxygen saturation in Blood 99.1 % Normal 95.0-100.0 [facility] Comment on above: Performed By: #### A BG ####[facility] Hqeykipsmm[address] [place], [place] [address]Dr. Demetrio Kan PCO2 34.5 mmHg Critically low 35.0-45.[address] [facility] Comment on above: Performed By: #### A BG ####[facility] Owdzdvdmsz[address] [place], [place] [address]Dr. Demetrio Kan PEEP Normal [facility] Comment on above: Performed By: #### A BG ####[facility] Ed[address]qreji[address] [place] [address]Dr. Demetrio Kan pH (Bld) 7.529 [pH] Critically high 7.350-7.450 [facility] Comment on above: Result Comment: Prev iously reported as: 7.520 On 12/30/2022 07:13 By LM4 Performed By: #### A BG ####[facility] Rszbewujzh[address] [place], [place] [address]Dr. Demetrio Kan PIP Normal [facility] Comment on above: Performed By: #### A BG ####[facility] [address]sxb[address]myed[address] [place] [address]Dr. Demetrio Kan PS Normal [facility] Comment on above: Performed By: #### A BG ####[facility] Xaryljezka[address] [place] [address]Dr. Demetrio Kan PUNCTURE SITE RR Normal [facility] Comment on above: Performed By: #### A BG ####[facility] Fecczh[address]xl[address] [place], [place] [address]Dr. Demetrio Kan RATE Normal [facility] Comment on above: Performed By: #### A BG ####[facility] Cziiffmfaq[address] [place], [place] [address]Dr. Demetrio Kan VENT MODE Normal [facility] Comment on above: Performed By: #### A BG ####[facility] Addktolvug[address] [place], [place] [address]Dr. Demetrio Kan [place] [facility] Comment on above: Performed By: #### A BG ####[facility] Hemtixpged022[address] [place], [place] [address]Dr. Demetrio Kan CBC W MANUAL DIFFon 12-31-19 23 ATYPICAL LYMPH # [facility] Comment on above: Performed By: #### C BCMAN ####[facility] Gffkovrktl[address] [place], [place] [address]Dr. Demetrio Kan ATYPICAL LYMPH % Normal [facility] Comment on above: Performed By: #### C BCMAN ####[facility] Oehycqsdyk[address] [place], [place] [address]Dr. Demetrio Kan BAND # 0.0 103/ul Normal 0.0-0.3 [facility] Comment on above: Performed By: #### C BCMAN ####[facility] Fqzcmtnyvh[address] [place], [place] [address]Dr. Demetrio Kan BAND % 0 % Normal 0-5 [facility] Comment on above: Performed By: #### C BCMAN ####[facility] K[address]jukmlxnc[address] [place], [place] [address]Dr. Demetrio Kan BASOM # 0.00 103/ul Normal 0.00-0.10 [facility] Comment on above: Performed By: #### C BCMAN ####[facility] [address]oxrddcc[address] [place] [address]Dr. Demetrio Kan BASOM % 0.0 % Critically low 0.2-2.0 [facility] Comment on above: Performed By: #### C BCMAN ####[facility] Vpvpopfflk[address] [place] [address]Dr. Demetrio Kan BLAST # Normal [facility] Comment on above: Performed By: #### C BCTEDDY ####[facility] Uzzemuamvk[address] [place] [address]Dr. Demetrio Kan BLAST % Normal [facility] Comment on above: Performed By: #### C BCTEDDY ####[facility] Yipgslnstx[address] [place], [place] [address]Dr. Demetrio Kan CORRECTED WBC Normal 4.0-11.0 [facility] Comment on above: Performed By: #### C BCTEDDY ####[facility] Ontahslwks[address] [place] [address]Dr. Demetrio Kan EOS # 0.00 103/ul Normal 0.00-0.70 [facility] Comment on above: Performed By: #### C BCTEDDY ####[facility] Rvvmzdziyw30[address] [place] [address]Dr. Demetrio Kan EOS% 0.0 % Critically low 0.9-7.0 [facility] Comment on above: Performed By: #### C BCMAN ####[facility] Rosduosubx[address] [place] [address]Dr. Demetrio Kan HCT 30.2 % Critically low 36.0-48.0 [facility] Comment on above: Performed By: #### C BCMAN ####[facility] Etuinnftdg[address] [place] [address]Dr. Demetrio Kan HGB 9.9 g/dl Critically low 12.0-16.0 [facility] Comment on above: Performed By: #### C BCMAN ####[facility] [address]pt[address]u17[address] [place], [place] [address]Dg. Demetrio Kan LYMPHM # 0.14 103/ul Critically low 1.20-3.80 [facility] Comment on above: Performed By: #### C JESSE ####[facility] Ajvyckafga6971 [place] [address]Dr. Demetrio Kan LYMPHM% 1.0 % Critically low 20.5-60.[address] [facility] Comment on above: Performed By: #### C JESSE ####[facility] Wqrnfvonyb7[address] [place] [address]Dr. Demetrio Kan MCH 30.1 pg Normal 26.7-34.0 [facility] Comment on above: Performed By: #### Chantel MOLINA ####[facility] Jcilurvvfk8420 [place] [address]Dr. Demetrio Kan MCHC 32.8 g/dl Normal 29.9-35.2 [facility] Comment on above: Performed By: #### Chantel MOLINA ####[facility] Kikngozfgz4377 [place] [address]Dr. Demetrio Kan MCV 91.8 fL Normal 81.0-99.0 [facility] Comment on above: Performed By: #### Chantel MOLINA ####[facility] Zqlrotebsu2317 [place] [address]Dr. Demetrio Kan METAMYELOCYTE # Normal [facility] Comment on above: Performed By: #### Chantel MOLINA ####[facility] Fjwbycidkq3191 [place] [address]Dr. Demetrio Kan METAMYELOCYTE % Normal [facility] Comment on above: Performed By: #### Chantel MOLINA ####[facility] By[address] [place], [place] [address]Dr. Demetrio Kan MONOM# 0.00 103/ul Critically low 0.30-0.80 [facility] [place] [facility] Comment on above: Performed By: #### Chantel MOLINA ####[facility] [address]xhw[address] [place], [place] [address]Dr. Yilan Kan MONOM% 0.0 % Critically low 1.7-12.0 [facility] Comment on above: Performed By: #### C JESSE ####[facility] Uzrbdvytfg63[address] [place] [address]Dr. Demetrio Kan MPV 9.9 fL Normal 9.5-13.5 [facility] Comment on above: Performed By: #### C JESSE ####[facility] Mntskcatmb0761 [place] [address]Dr. Demetrio Kan MYELOCYTE # Normal [facility] Comment on above: Performed By: #### C JESSE ####[facility] Sjoihmyygg2860 [place] [address]Dr. Demetrio Kan MYELOCYTE % Normal [facility] Comment on above: Performed By: #### C JESSE ####[facility] Z[address]boqealc[address] [place] [address]Dr. Demetrio Kan NRBC Normal [facility] Comment on above: Performed By: #### C JESSE ####[facility] Liayjcfenk1718 [place] [address]Dr. Demetrio Kan PLT 200 103/ul Normal 150-450 [facility] Comment on above: Performed By: #### C JESSE ####[facility] Wswtcpbgcq0306 [place] [address]Dr. Demetrio Kan RBC 3.29 106/ul Critically low 4.20-5.40 [facility] Comment on above: Performed By: #### C JESSE ####[facility] Psejkpjwjs1034 [place] [address]Dr. Demetrio Kan RDW 14.3 % Normal 11.0-15.0 [facility] Comment on above: Performed By: #### C JESSE ####[facility] Pyoapxismj1906 [place] [address]Dr. Demetrio Kan SEG # 13.76 103/ul Critically high 1.40-6.50 [facility] Comment on above: Performed By: #### C JESSE ####[facility] Pjduqhqgca0034 [place] [address]Dr. Demetrio Kan SEG % 99.0 % Critically high 43.0-75.0 [facility] [place] [facility] Comment on above: Performed By: #### C BCMAN ####[facility] Vdzejzzrlk9051 [place], [place] [address]Dr. Demetrio Kan WBC 13.9 103/ul Critically high 4.0-11.0 [facility] Comment on above: Performed By: #### C BCTEDDY ####[facility] Updhlsrpsn3[address] [place] [address]Dr. Demetrio Kan POINT OF CARE GLUCOSEon 12-03 Glucose [Mass/Vol] 265 mg/dL Critically high 74-106 [facility] Comment on above: Performed By: #### C MP, BNP, CMADM #### [facility] [address] [place] [address] [address] Demetrio Kan Glucose [Mass/Vol] 333 mg/dL Critically high -106 [facility] Comment on above: Performed By: #### P OCGLUC #### [facility] [address] [address] [address] Demetrio Kan Glucose [Mass/Vol] 219 mg/dL Critically high [facility]106 [facility] Comment on above: Performed By: #### C MP, BNP, CMADM #### [facility] [address] [address] [address] Demetrio Kan Glucose [Mass/Vol] 281 mg/dL Critically high -106 [facility] Comment on above: Performed By: #### P OCGLUC #### [facility] [address] [address] [address] Demetrio Kan PROF 14(COMP METB)on 023 Albumin [Mass/Vol] 1.7 g/dL Critically low 3.4-5.0 [facility] Comment on above: Performed By: #### C MP ####[facility] Opinmmacfb9324 [place] [id number]. Demetrio Kan Albumin/Globulin [Mass ratio] 0.4 {ratio} Normal [facility] Comment on above: Performed By: #### C MP ####[facility] Ujrujgvudc[address] [place] [address]Dr. Demetrio Kan ALP [Catalytic activity/Vol] 103 U/L Normal 46-116 [facility] Comment on above: Performed By: #### C MP ####[facility] Ploxdsrrvz6[address] [place] [id number]. Demetrio Kan ALT [Catalytic activity/Vol] 11 U/L Critically low 14-59 [facility] Comment on above: Performed By: #### C MP ####[facility] Ubupscjbch8583 [place] [address]Dr. Demetrio Kan Anion gap [Moles/Vol] 8.8 mmol/L Normal [facility] Comment on above: Performed By: #### C MP ####[facility] Jpsexuczyq7841 [place] [address]Dr. Demetrio Kan AST [Catalytic activity/Vol] 10 U/L Critically low 15-37 [facility] Comment on above: Performed By: #### C MP ####[facility] Nngjbfkoro9221 [place] [address]Dr. Demetrio Kan Bilirubin [Mass/Vol] 0.3 mg/dL Normal 0.2-1.0 [facility] Comment on above: Performed By: #### C MP ####[facility] Vnvrdqyboe9056 [place] [address]Dr. Demetrio Kan Calcium [Mass/Vol] 8.8 mg/dL Normal 8.5-10.1 [facility] Comment on above: Performed By: #### C MP ####[facility] Tujsnrfquf7851 [place] [address]Dr. Demetrio Kan Chloride [Moles/Vol] 103 mmol/L Normal 98-107 [facility] Comment on above: Performed By: #### C MP ####[facility] Ghynswiejz0807 [place] [address]Dr. Demetrio Kan CO2 [Moles/Vol] 30.9 mmol/L Normal 21.0-32.0 [facility] Comment on above: Performed By: #### C MP ####[facility] Drvvtphlfk3545 [place] [address]Dr. Carolynejosé miguel Kan Creatinine [Mass/Vol] 0.69 mg/dL Normal 0.55-1.02 [facility] Comment on above: Performed By: #### C MP ####[facility] Bclmoxsalm6976 [place] [address]Dr. Carolynejosé miguel Lucius EGFR-AF ANGOLAN >60 Normal >=60 [facility] Comment on above: Performed By: #### C MP ####[facility] Kqsjwgfmtm3009 [place] [address]Dr. Demetrio Kan EGFR-NON AF ANGOLAN >60 Normal >=60 [facility] Comment on above: Performed By: #### C MP ####[facility] Oruakyjcrn[address] [place], [place] [address]Dr. Demetrio Kan Globulin (S) [Mass/Vol] 3.9 g/dL Normal [facility] Comment on above: Performed By: #### C MP ####[facility] Czbsbj[address]op[address] [place], [place] [address]Dr. Demetrio Kan Glucose [Mass/Vol] 216 mg/dL Critically high 74-106 [facility] Comment on above: Performed By: #### C MP ####[facility] Ggqhyogmsh[address] [place], [place] [address]Dr. Demetrio Kan Potassium [Moles/Vol] 2.7 mmol/L Critically low 3.5-5.1 [facility] Comment on above: Performed By: #### C MP ####[facility] Zgxnxjdrba0247 [place] [address]Dr. Demetrio Kan Protein [Mass/Vol] 5.6 g/dL Critically low 6.4-8.2 [facility] Comment on above: Performed By: #### C MP ####[facility] Dwuhegmojf[address] [place], [place] [address]Dr. Demetrio Kan Sodium [Moles/Vol] 140 mmol/L Normal 136-145 [facility] Comment on above: Performed By: #### C MP ####[facility] Vshscob[address] [place], [place] [address]Dr. Demetrio Kan Urea nitrogen [Mass/Vol] 16.0 mg/dL Normal 7.0-18.0 [facility] Comment on above: Performed By: #### C MP ####[facility] Zeixpsjrxc0044 [place] [address]Dr. Demetrio Kan Urea nitrogen/Creatinine [Mass ratio] 23.2 mg/mg Normal [facility] Comment on above: Performed By: #### C MP ####[facility] Rtahwvhumy5839 [place] [address]Dr. Demetrio Kan BNPon 12-29-2022 Natriuretic peptide B (Bld) [Mass/Vol] 824.0 pg/mL Normal <=900.0 [facility] Comment on above: Performed By: #### C MP, BNP, CMADM #### [facility] [address] [place] [address] Dr. Demetrio Kan CARDIAC IGNACIA ADMITon 023 CK [Catalytic activity/Vol] 43 U/L Normal 26-192 [facility] Comment on above: Performed By: #### C MP, BNP, CMADM #### [facility] [address] [place] [address] [address] Demetrio Kan CK.MB [Mass/Vol] 0.91 ng/mL Normal <=3.60 [facility] Comment on above: Performed By: #### C MP, BNP, CMADM #### [facility] [address] [place] [address] Dr. Demetrio Kan HSTROP 18.1 pg/mL Normal 4.0-51.3 [facility] Comment on above: Result Comment: CUT- OFF POINTS HAVE BEEN ESTABLISHED BASED ON THE FOURTH UNIVERSAL DEFINITIONS OF MYOCARDIAL INFARCTION. THE UPPER REFERENCE LIMIT (URL) OF TROPONIN, DEFINED THE 99TH PERCENTILE OF cTnI DISTRIBUTION IN A REFERENCE POPULATION, HAS BEEN CONFIRMED THE DECISION THRESHOLD FOR IA DIAGNOSIS. Performed By: #### C MP, BNP, CMADM #### [facility] [address] [place] [address] [address] Demetrio Kan KAVEH 63 ng/mL Normal 9-82 [facility] Comment on above: Performed By: #### C MP, BNP, CMADM #### [facility] [address] [place], [place] [address] Dr. Demetrio Kan CBC AUTO DIFFon 12-29-2022 BASO # 0.1 103/ul Normal 0.0-0.1 [facility] Comment on above: Performed By: #### C BC ####[facility] Egnaxqkefk5846 [place] [id number] Kan Basophils/100 WBC (Bld) 0.4 % Normal 0.2-2.0 [facility] Comment on above: Performed By: #### C BC ####[facility] Huojxaljvg8446 [place] [address]DrPham Kan EO # 0.1 103/ul Normal 0.0-0.7 [facility] Comment on above: Performed By: #### C BC ####[facility] Igoiuekoia3707 [place] [address]DrPham Kan Eosinophils/100 WBC (Bld) 0.4 % Critically low 0.9-7.0 [facility] Comment on above: Performed By: #### C BC ####[facility] Baxbsazapt5958 [place] [address]DrPham Kan Erythrocyte distribution width (RBC) [Ratio] 14.1 % Normal 11.0-15.0 [facility] Comment on above: Performed By: #### C BC ####[facility] Ykxepmdjxp4937 [place] [address]DrPham Kan Hematocrit (Bld) [Volume fraction] 37.6 % Normal 36.0-48.0 [facility] Comment on above: Performed By: #### C BC ####[facility] Xygoxofmmk4540 [place] [address]DrPham Kan Hemoglobin (Bld) [Mass/Vol] 12.4 g/dL Normal 12.0-16.0 [facility] Comment on above: Performed By: #### C BC ####[facility] Hbxpjtybox1060 [place] [address]DrPham Kan IG # 0.12 10e3/ul Critically high 0.00-0.03 [facility] Comment on above: Performed By: #### C BC ####[facility] Shrjkrzqey2362 [place] [id number]. Demetrio Kan IG % 0.7 % Critically high 0.0-0.5 [facility] [place] [facility] Comment on above: Performed By: #### C BC ####[facility] Owwzmkzzhs8379 [place] [phone] Kan LYMPH # 0.4 103/ul Critically low 1.2-3.[address] [facility] Comment on above: Performed By: #### C BC ####[facility] Sdvdoordsr8010 [place] [phone]. Demetrio Kan Lymphocytes/100 WBC (Bld) 2.4 % Critically low 20.5-60.0 [facility] Comment on above: Performed By: #### C BC ####[facility] Aadtpxkbnr7616 [place] [address]Dr. Demetrio Kan MANUAL DIFF REQ NO Normal [facility] [place] [facility] Comment on above: Performed By: #### C BC ####[facility] Sjijeizbfg4627 [place] [phone]. Demetrio Kan MCH (RBC) [Entitic mass] 30.5 pg Normal 26.7-34.0 [facility] Comment on above: Performed By: #### C BC ####[facility] Ptiicqnvzv4428 [place] [id number]. Demetrio Kan MCHC (RBC) [Mass/Vol] 33.0 g/dL Normal 29.9-35.2 [facility] Comment on above: Performed By: #### C BC ####[facility] Rkhkvcsqsf3515 [place] [phone] Kan MCV (RBC) [Entitic vol] 92.6 fL Normal 81.0-99.0 [facility] Comment on above: Performed By: #### C BC ####[facility] Bopttpkhgh0107 [place] [phone] Kan MONO # 1.0 103/ul Critically high 0.3-0.8 [facility] Comment on above: Performed By: #### C BC ####[facility] Mwjivbcdhs7518 [place] [id number]. Demetrio Kan Monocytes/100 WBC (Bld) 5.6 % Normal 1.7-12.0 [facility] Comment on above: Performed By: #### C BC ####[facility] Gzzzjkpwzp9606 [place] [id number]. Demetrio Kan NEUT # 16.1 103/ul Critically high 1.4-6.5 [facility] Comment on above: Performed By: #### C BC ####[facility] Ulaqdswesz0974 [place] [address]Dr. Demetrio Kan Neutrophils/100 WBC (Bld) 90.5 % Critically high 43.0-75.0 [facility] Comment on above: Performed By: #### C BC ####[facility] Rwhaxnzlyi5324 [place] [address]Dr. Demetrio Kan Platelet mean volume (Bld) [Entitic vol] 9.5 fL Normal 9.5-13.5 [facility] Comment on above: Performed By: #### C BC ####[facility] [address]ksrtx[address] [place], [place] [address]Dr. Demetrio Kan PLT 245 103/ul Normal 150-450 [facility] Comment on above: Performed By: #### C BC ####[facility] Ipsdnvchbh5539 [place] [address]Dr. Demetrio Kan RBC 4.06 106/ul Critically low 4.20-5.40 [facility] Comment on above: Performed By: #### C BC ####[facility] Bflwcqfxpt8125 [place] [id number]. Demetrio Kan WBC 17.7 103/ul Critically high 4.0-11.0 [facility] Comment on above: Performed By: #### C BC ####[facility] Nvjoilqeqr2849 [place] [phone]. Demetrio Kan CBC W MANUAL DIFFon 12-30-19 23 ANISOCYTOSIS 1+ Normal [facility] Comment on above: Performed By: #### P OCGLUC #### [facility] [address] [place] [address] [address] Demetrio Kan ATYPICAL LYMPH # Normal [facility] Comment on above: Performed By: #### P OCGLUC #### [facility] [address] [place] [address] [address] Demetrio Kan ATYPICAL LYMPH % Normal [facility] Comment on above: Performed By: #### P OCGLUC #### [facility] [address] [place] [address] [address] Demetrio Kan BAND # 0.7 103/ul Critically high 0.0-0.3 [facility] [place] [facility] Comment on above: Performed By: #### P OCGLUC #### [facility] [address] [place] [address] [address] Demetrio Kan BAND % 3 % Normal 0-5 [facility] Comment on above: Performed By: #### P OCGLUC #### [facility] [address] [place] [address] [address] Demetrio Kan BASOM # 0.00 103/ul Normal 0.00-0.10 [facility] Comment on above: Performed By: #### P OCGLUC #### [facility] [address] [place] [address] Dr. Demetrio Kan BASOM % 0.0 % Critically low 0.2-2.[address] [facility] Comment on above: Performed By: #### P OCGLUC #### [facility] [address] [place] [address] [address] Demetrio Kan BLAST # Normal [facility] Comment on above: Performed By: #### P OCGLUC #### [facility] [address] [place] [address] [address] Demetrio Kan BLAST % Normal [facility] Comment on above: Performed By: #### P OCGLUC #### [facility] [address] [place] [address] Dr. Demetrio Kan CORRECTED WBC Normal 4.0-11.0 [facility] Comment on above: Performed By: #### P OCGLUC #### [facility] [address] [place] [address] [address] Demetrio Kan EOS # 0.00 103/ul Normal 0.00-0.70 [facility] Comment on above: Performed By: #### P OCGLUC #### [facility] [address] [place] [address] [address] Demetrio Kan EOS% 0.0 % Critically low 0.9-7.[address] [facility] Comment on above: Performed By: #### P OCGLUC #### [facility] [address] [place] [address] [address] Demetrio Kan HCT 33.1 % Critically low 36.0-48.0 [facility] Comment on above: Performed By: #### P OCGLUC #### [facility] [address] [place] [address] Dr. Demetrio Kan HGB 11.1 g/dl Critically low 12.0-16.[address] [facility] Comment on above: Performed By: #### P OCGLUC #### [facility] [address] [place] [address] Dr. Demetrio Kan LYMPHM # 0.95 103/ul Critically low 1.20-3.80 [facility] Comment on above: Performed By: #### P OCGLUC #### [facility] [address] [place] [address] Dr. Demetrio Kan LYMPHM% 4.0 % Critically low 20.5-60.0 [facility] Comment on above: Performed By: #### P OCGLUC #### [facility] [address] [place] [address] [address] Demetrio Kan MCH 30.8 pg Normal 26.7-34.0 [facility] Comment on above: Performed By: #### P OCGLUC #### [facility] [address] [place] [address] Dr. Demetrio Kan MCHC 33.5 g/dl Normal 29.9-35.2 [facility] Comment on above: Performed By: #### P OCGLUC #### [facility] [address] [place] [address] Dr. Demetrio Kan MCV 91.9 fL Normal 81.0-99.0 [facility] Comment on above: Performed By: #### P OCGLUC #### [facility] [address] [place] [address] Dr. Demetrio Kan METAMYELOCYTE # Normal [facility] [place] [facility] Comment on above: Performed By: #### P OCGLUC #### [facility] [address] [place] [address] [address] Demetrio Kan METAMYELOCYTE % Normal [facility] [place] [facility] Comment on above: Performed By: #### P OCGLUC #### [facility] [address] [place] [address] [address] Demetrio Kan MONOM# 1.42 103/ul Critically high 0.30-0.80 [facility] Comment on above: Performed By: #### P OCGLUC #### [facility] [address] [place] [address] Dr. Demetrio Kan MONOM% 6.0 % Normal 1.7-12.0 [facility] Comment on above: Performed By: #### P OCGLUC #### [facility] [address] [place] [address] Dr. Demetrio Kan MPV 9.7 fL Normal 9.5-13.5 [facility] Comment on above: Performed By: #### P OCGLUC #### [facility] [address] [place] [address] Dr. Demetrio Kan MYELOCYTE # Normal [facility] Comment on above: Performed By: #### P OCGLUC #### [facility] [address] [place] [address] Dr. Demetrio Kan MYELOCYTE % Normal [facility] Comment on above: Performed By: #### P OCGLUC #### [facility] [address] [place] [address] Dr. Demetrio Kan NRBC Normal [facility] Comment on above: Performed By: #### P OCGLUC #### [facility] [address] [place] [address] Dr. Demetrio Kan PLT 235 103/ul Normal 150-450 [facility] Comment on above: Performed By: #### P OCGLUC #### [facility] [address] [place] [address] [address] Demetrio Kan RBC 3.60 106/ul Critically low 4.20-5.40 [facility] Comment on above: Performed By: #### P OCGLUC #### [facility] [address] [place] [address] [address] Demetrio Kan RDW 14.2 % Normal 11.0-15.0 [facility] Comment on above: Performed By: #### P OCGLUC #### [facility] [address] [place] [address] [address] Demetrio Kan SEG # 20.62 103/ul Critically high 1.40-6.50 [facility] Comment on above: Performed By: #### P OCGLUC #### [facility] [address] [place] [address] [address] Demetrio Kan SEG % 87.0 % Critically high 43.0-75.0 [facility] Comment on above: Performed By: #### P OCGLUC #### [facility] [address] [place] [address] [address] Demetrio Kan WBC 23.7 103/ul Critically high 4.0-11.0 [facility] Comment on above: Performed By: #### P OCGLUC #### [facility] [address] [place] [id number] Demetrio Kan CTA CHEST WO W CONon 03-29-2 023 CTA CHEST WO W CON EXAMINATION: [...] ARMAND PATEL Date: 2022-12-29 03:05 Normal [facility] CULTURE BLOODon 12-29-2022 Microscopic examination of blood, culture Culture Observations: NO GROWTH AT 5 DAYS. Normal [facility] Comment on above: Performed By: #### B LDCX2 ####[facility] W[address]ka[address] [place] [address]Dr. Demetrio Kan Performed By: #### B LDCX1 ####[facility] Lxabxkivtj30[address] [place] [address]Dr. Demetrio Kan Covid-19 PCR (CVDTB)on 12-02 SARS-CoV-2 (COVID-19) RNA BRUNO+probe Ql (Unsp spec) Not detected Normal NOT DETECTED [facility] Comment on above: Result Comment: When [...] for this test is supported by the [place] of [employer] and Human Service's declaration that [...] be used). Performed By: #### C VDTBH ####[facility] Bxsshkifkf9034 [place] [id number]. Demetrio Kan INFLUENZA A AND B AGon 12-29 INFLUANEGH SEE BELOW Normal [facility] Comment on above: Result Comment: Nega tive for Flu A protein angiten. Infection due to Flu A cannot be ruled out. Flu A angiten in the sample may be below the detection limit of the test. Performed By: #### I NFLUAB ####[facility] [address] [place], [place] [address]Dr. Demetrio Kan INFLUBNEGH SEE BELOW Normal [facility] Comment on above: Result Comment: Nega tive for Flu B protein antigen. Infection due to Flu B cannot be ruled out. Flu B antigen in the sample may be below the detection limit of the test. Performed By: #### I NFLUAB ####[facility] [address] [place], [place] [address]Dr. Demetrio Kan INFLUENZA A AG Negative Normal NEGATIVE SEE COMMENT [facility] Comment on above: Performed By: #### I NFLUAB ####[facility] [address] [place], [place] [address]Dr. Demetrio Kan INFLUENZA B AG Negative Normal NEGATIVE SEE COMMENT [facility] Comment on above: Performed By: #### I NFLUAB ####[facility] [address] [place], [place] [address]DrPham Kan LACTATE/LACTIC ACIDon 2022 Lactate [Moles/Vol] 1.7 mmol/L Normal 0.4-2.0 [facility] Comment on above: Performed By: #### L ACT #### [facility] [address] [place] [address] Dr. Demetrio Kan LIPID PROFILEon 12-29-2022 CHOL-HDL RATIO NORM SEE BELOW Normal [facility] Comment on above: Result Comment: 3.3 - 4.4 LOW RISK 4.4 - 7.1 AVERAGE RISK 7.1 - 11.0 MODERATE RISK >11.0 HIGH RISK Performed By: #### P OCGLUC #### [facility] [address] [place] [address] Dr. Demetrio Kan Cholesterol [Mass/Vol] 98 mg/dL Normal <=200 [facility] Comment on above: Performed By: #### P OCGLUC #### [facility] [address] [place] [address] [address] Demetrio Kan Cholesterol in HDL [Mass/Vol] 32 mg/dL Critically low 40-60 [facility] Comment on above: Performed By: #### P OCGLUC #### [facility] [address] [place] [address] [address] Demetrio Kan Cholesterol in LDL [Mass/Vol] 53.4 mg/dL Normal [facility] Comment on above: Performed By: #### P OCGLUC #### [facility] [address] [place] [address] [address] Demetrio Kan Cholesterol.total/Ch olesterol in HDL [Mass ratio] 3.1 {ratio} Normal [facility] Comment on above: Performed By: #### P OCGLUC #### [facility] [address] [place] [address] [address] Demetrio Kan HDL NORMAL > or = 60 mg/dl - LOW CARDIOVASCULAR RISK <40 mg/dl - HIGH CARDIOVASCULAR RISK Normal [facility] Comment on above: Performed By: #### P OCGLUC #### [facility] [address] [place] [address] [address] Demetrio Kan LDL CALC NORMAL SEE BELOW Normal [facility] Comment on above: Result Comment: <100 mg/dl OPTIMAL 100 - 129 mg/dl NEAR OR ABOVE OPTIMAL 130 - 159 mg/dl BORDERLINE HIGH 160 - 189 mg/dl HIGH >190 mg/dl VERY HIGH Performed By: #### P OCGLUC #### [facility] [address] [place] [address] [address] Demetrio Kan Triglyceride [Mass/Vol] 63 mg/dL Normal <=150 [facility] Comment on above: Performed By: #### P OCGLUC #### [facility] [address] [place] [address] [address] Demetrio Kan VLDL CALC 12.6 mg/dL Normal [facility] Comment on above: Performed By: #### P OCGLUC #### [facility] [address] [place] [address] [address] Demetrio Kan MAGNESIUMon 12-29-2022 Magnesium [Mass/Vol] 1.7 mg/dL Critically low 1.8-2.4 [facility] Comment on above: Performed By: #### P OCGLUC #### [facility] [address] [place] [address] [address] Demetrio Kan POINT OF CARE GLUCOSEon 12-02 Glucose [Mass/Vol] 144 mg/dL Critically high 74-106 [facility] Comment on above: Performed By: #### P OCGLUC ####[facility] [address]cxknbrzh[address] [place] [address]Dr. Demetrio Kan Glucose [Mass/Vol] 237 mg/dL Critically high 74-106 [facility] Comment on above: Performed By: #### P OCGLUC ####[facility] [address]uhhblw[address] [place] [address]Dr. Demetrio Kan Glucose [Mass/Vol] 283 mg/dL Critically high -106 [facility] Comment on above: Performed By: #### P OCGLUC ####[facility] Fruehpfhuz[address] [place] [address]Dr. Demetrio Kan Glucose [Mass/Vol] 181 mg/dL Critically high -106 [facility] Comment on above: Performed By: #### P OCGLUC #### [facility] [address] [address] [address] Demetrio Kan PROF 14(COMP METB)on 023 Albumin [Mass/Vol] 2.2 g/dL Critically low 3.4-5.0 [facility] Comment on above: Performed By: #### C MP, BNP, CMADM #### [facility] [address] [place] [address] [address] Demetrio Kan Albumin/Globulin [Mass ratio] 0.5 {ratio} Normal [facility] Comment on above: Performed By: #### C MP, BNP, CMADM #### [facility] [address] [place] [address] [address] Demetrio Kan ALP [Catalytic activity/Vol] 128 U/L Critically high 46-116 [facility] Comment on above: Performed By: #### C MP, BNP, CMADM #### [facility] [address] [address] [address] Demetrio Kan ALT [Catalytic activity/Vol] 14 U/L Normal 14-59 [facility] Comment on above: Performed By: #### C MP, BNP, CMADM #### [facility] [address] [address] [address] Demetrio Kan Anion gap [Moles/Vol] 11.3 mmol/L Normal [facility] Comment on above: Performed By: #### C MP, BNP, CMADM #### [facility] [address] [place] [address] Dr. Demetrio Kan AST [Catalytic activity/Vol] 14 U/L Critically low 15-37 [facility] Comment on above: Performed By: #### C MP, BNP, CMADM #### [facility] [address] [place] [address] Dr. Demetrio Kan Bilirubin [Mass/Vol] 0.7 mg/dL Normal 0.2-1.0 [facility] Comment on above: Performed By: #### C MP, BNP, CMADM #### [facility] [address] [place] [address] Dr. Demetrio Kan Calcium [Mass/Vol] 9.2 mg/dL Normal 8.5-10.1 [facility] Comment on above: Performed By: #### C MP, BNP, CMADM #### [facility] [address] [place] [address] Dr. Demetrio Kan Chloride [Moles/Vol] 100 mmol/L Normal 98-107 [facility] Comment on above: Performed By: #### C MP, BNP, CMADM #### [facility] [address] [place] [address] Dr. Demetrio Kan CO2 [Moles/Vol] 31.6 mmol/L Normal 21.0-32.0 [facility] Comment on above: Performed By: #### C MP, BNP, CMADM #### [facility] [address] [place], [place] [id number] Dr. Demetrio Kan Creatinine [Mass/Vol] 0.75 mg/dL Normal 0.55-1.02 [facility] Comment on above: Performed By: #### C MP, BNP, CMADM #### [facility] [address] [address] [address] Demetrio Kan EGFR-AF ANGOLAN >60 Normal >=60 [facility] Comment on above: Performed By: #### C MP, BNP, CMADM #### [facility] [address] [address] [address] Demetrio Kan EGFR-NON AF ANGOLAN >60 Normal >=60 [facility] Comment on above: Performed By: #### C MP, BNP, CMADM #### [facility] [address] [place] [address] Dr. Demetrio Kan Globulin (S) [Mass/Vol] 4.4 g/dL Normal [facility] Comment on above: Performed By: #### C MP, BNP, CMADM #### [facility] [address] [address] [address] Demetrio Kan Glucose [Mass/Vol] 178 mg/dL Critically high 74-106 [facility] Comment on above: Performed By: #### C MP, BNP, CMADM #### [facility] [address] [place] [address] Dr. Demetrio Kan Potassium [Moles/Vol] 2.9 mmol/L Critically low 3.5-5.1 [facility] Comment on above: Performed By: #### C MP, BNP, CMADM #### [facility] [address] [address] [address] Demetrio Kan Protein [Mass/Vol] 6.6 g/dL Normal 6.4-8.2 [facility] Comment on above: Performed By: #### C MP, BNP, CMADM #### [facility] [address] [address] [address] Demetrio Kan Sodium [Moles/Vol] 140 mmol/L Normal 136-145 [facility] Comment on above: Performed By: #### C MP, BNP, CMADM #### [facility] [address] [place], [place] [address] Dr. Demetrio Kan Urea nitrogen [Mass/Vol] 17.0 mg/dL Normal 7.0-18.0 [facility] Comment on above: Performed By: #### C MP, BNP, CMADM #### [facility] [address] [address] [address] Demetrio Kan Urea nitrogen/Creatinine [Mass ratio] 22.7 mg/mg Normal [facility] Comment on above: Performed By: #### C MP, BNP, CMADM #### [facility] [address] [address] [address] Demetrio Kan PROF CHEM 8 (BAS METB)on Anion gap [Moles/Vol] 10.0 mmol/L Normal [facility] Comment on above: Performed By: #### B MP ####[facility] [address] [address]Dr. Demetrio Kan Calcium [Mass/Vol] 8.9 mg/dL Normal 8.5-10.1 [facility] Comment on above: Performed By: #### B MP ####[facility] [address] [address]Dr. Demetrio Kan Chloride [Moles/Vol] 107 mmol/L Normal 98-107 [facility] Comment on above: Performed By: #### B MP ####[facility] [address] [id number]. Demetrio Kan CO2 [Moles/Vol] 31.4 mmol/L Normal 21.0-32.0 [facility] Comment on above: Performed By: #### B MP ####[facility] [address] [address]Dr. Demetrio Kan Creatinine [Mass/Vol] 0.73 mg/dL Normal 0.55-1.02 [facility] Comment on above: Performed By: #### B MP ####[facility] [address] [id number]. Demetrio Kan EGFR-AF ANGOLAN >60 Normal >=60 [facility] Comment on above: Performed By: #### B MP ####[facility] [address] [address]Dr. Demetrio Kan EGFR-NON AF ANGOLAN >60 Normal >=60 [facility] Comment on above: Performed By: #### B MP ####[facility] [address] [id number]. Demetrio Kan Glucose [Mass/Vol] 148 mg/dL Critically high 74-106 [facility] Comment on above: Performed By: #### B MP ####[facility] [address] [address]Dr. Demetrio Kan Potassium [Moles/Vol] 3.4 mmol/L Critically low 3.5-5.1 [facility] Comment on above: Performed By: #### B MP ####[facility] [address] [place], [place] [address]Dr. Demetrio Kan Sodium [Moles/Vol] 145 mmol/L Normal 136-145 [facility] Comment on above: Performed By: #### B MP ####[facility] [address] [place], [place] [address]Dr. Demetrio Kan Urea nitrogen [Mass/Vol] 16.0 mg/dL Normal 7.0-18.0 [facility] Comment on above: Performed By: #### B MP ####[facility] [address] [place], [place] [address]Dr. Demetrio Kan Urea nitrogen/Creatinine [Mass ratio] 21.9 mg/mg Normal [facility] Comment on above: Performed By: #### B MP ####[facility] [address] [place], [place] [address]Dr. Demetrio Kan PROTIMEon 12-29-2022 INR Coag (PPP) [Relative time] 0.99 {INR} Normal [facility] Comment on above: Performed By: #### P TT, PT ####[facility] [address] [place], [place] [address]Dr. Demetrio Kan INR GUIDELINES SEE BELOW Normal [facility] Comment on above: Result Comment: TRAVIS RED INR: 2.0 - 3.0 CONDITIONS NOT LISTED BELOW 2.5 - 3.5 FOR PROSTHETIC HEART VALVE REPLACEMENT 2.5 - 3.5 RECURRENT THROMBOSIS Performed By: #### P TT, PT ####[facility] [address] [address]Dr. Demetrio Kan PT Coag (PPP) [Time] 10.5 s Normal 9.0-11.6 [facility] Comment on above: Performed By: #### P TT, PT ####[facility] [address] [address]DrPham Kan PTTon 12-29-2022 aPTT Coag (Bld) [Time] 27.3 s Normal 22.3-36.2 [facility] Comment on above: Performed By: #### P TT, PT ####[facility] [address] [address]DrPham Kan SPUTUM GRAM STAINon 12-30-19 COMMENTS Normal [facility] Comment on above: Performed By: #### P OCGLUC #### [facility] [address] [address] [address] Demetrio Kan DIPHTHEROIDS Normal [facility] Comment on above: Performed By: #### P OCGLUC #### [facility] [address] [address] [address] Demetrio Kan EPITHELIALS <25 Normal [facility] Comment on above: Performed By: #### P OCGLUC #### [facility] [address] [address] [address] Demetrio Kan FUNGAL ELEMENTS Normal [facility] Comment on above: Performed By: #### P OCGLUC #### [facility] [address] [address] [address] Demetrio GONZALEZ NEG BACILLI Normal [facility] Comment on above: Performed By: #### P OCGLUC #### [facility] [address] [address] [address] Demetrio GONZALEZ NEG DIPPLOCOCCI Normal [facility] Comment on above: Performed By: #### P OCGLUC #### [facility] [address] [address] [address] Demetrio Kan GRAM POS BACILLI FEW Normal [facility] Comment on above: Performed By: #### P OCGLUC #### [facility] [address] [place] [address] Dr. Demetrio Kan GRAM POSITIVE COCCI MODERATE Normal [facility] Comment on above: Performed By: #### P OCGLUC #### [facility] [address] [place] [address] Dr. Demetrio Kan WBC (Bld) [#/Vol] 10*3/uL Normal [facility] Comment on above: Performed By: #### P OCGLUC #### [facility] [address] [place] [address] Dr. Demetrio Kan SYMPTOMATIC COVID-19 ANTIGEN on 12-29-2022 EUA Statement SEE BELOW Normal [facility] Comment on above: Result Comment: This test [...] By: #### C MP, BNP, CMADM #### [facility] [address] [place] [address] Dr. Demetrio Kan SARS-CoV-2 (COVID-19) RNA BRUNO+probe Ql (Unsp spec) Negative Normal NEGATIVE [facility] Comment on above: Performed By: #### C MP, BNP, CMADM #### [facility] [address] [place] [address] Dr. Demetrio Kan TSHon 12-29-2022 TSH 0.370 uIU/mL Normal 0.358-3.740 [facility] Comment on above: Performed By: #### P OCGLUC #### [facility] [address] [address] [address] Demetrio Kan XR CHEST 1 Von [...] by: GAIL SCHAEFER Date: 2022-12-28 23:48 Normal [facility] CT LUNG CANCER SCREENINGon 0 11-17-2022 [...] by: JEAN MOONEY Date: 2022-11-17 14:47 Normal [facility] Coding Summary.on 11-17-2022 Coding Summary. CD:[id number] Gh0bWw+PGhlYWQ+PE1FV FBbX79pfNDlkE1KU3tVE C3LZIVNNOLSGG7ESN6ub TG0LSwbA7FjbqLg HltxnPVoFG12BPk6TZO7 gPrsZMpveI5nlIOmF5k4 JnBgKA10jV51LTtgJUSh ZdV0OqCqdzpalUTm T1shEqSikMIuKxy+PHRh YmxlIHdpZHRoPScxMDAl MzDbyVfiPJ5bFg1tEJEi LWNvbGxhcHNlOiBj n9saCVOsFEqqVC1xhPep A7PsvPU3MZMhu7s4Nv48 dHI+JWQlCSB8vTscCCcl v382EnYkd1juUKM2 eDRtFKnkYBB5S34ns5B7 QLFkOYXhFYM1uBC6bF9h nLfsbescM9QqwHBrViS5 KEE0zVTmhZ6osKsq dupotC7zUlp+M93WSB8C OVDODG9QYcv2Q5IhAlnw dHI+NX00BWJlDZ06vKXf rGZrt0kknQv1HhGh AWWvDNC1sIfcAJfqf2Qh FBJgC97guNDvp0N1XTTr yOwusIDfRfPtiPV1gJ9e ULsgzmlvp3ueqfoc Bkyyr2dvyt56zS07G97e FGjjEITbDFB3SBDhVETe eFincz3acO1kHv1+IDxj x8ton9vyyWv2QpPd NVPdgoHwsWnpDJC0q2Zd Ib43A2OkcIcbn3DeRhm1 lw92gOVfn7R9hBI3FAfg ZIAetF1lAWzzYwR4 ONMmScQixX89mJGeQDlc Jg7scVnfsMbtLO6qYICe cxnuMXCtwI5jPRPwcOWu tNkyXC9gJHZyaurz k634LjEoUHF5SGUnvLAe L3UlkJ2fXsFeEJGzHKPl Z7HiwKAkSEydX619JQtx PzH1VIQutjDaZ8Oy DEVxeXvwKtX9b6Z8Si7Z w8BwlqviNXJ5CZkcEIPb MbE3CdPwHfO2P3YcOco5 MCAzaAreJL0aD4Tt OEMvsrkycyocaFV0GGAf TDUvoJ97pOElHKdtHx5q r0K4p024CXCkWWWikU42 Hj2lyUaeGETugYOO nR5wtqozh6uzhjacJyQc CSAzAFl3JWa5HMIefTri ClQaLZL6WzX8GKC5wVIw cE1kfTqyhtmnyI7r Oyc+D50wrX7tJRP7CUJ1 gtrgRMWmbtBrRP01KR50 P5KxXrficMPskYH+PGRp nwPunHsiEK4bLeLx d9pcw2GaUFhlY7HgVBYe HTefQco4CJTgSEP0yXY0 eZ7sAZDwUTmas9F7rHO4 I3ClikOktb8is5jb QJHpLGbqZ30maNWlw0E0 NBUhhMM4KIWkwGsxDpZh bI95Tmk+KNYyiMvzd4Bt Puugm3ski4otqFh6 IjMwJSIgdmFsaWduPSJ0 o6VbCv07A71fALqkLQBa ZKRhAPFlQJEudBismi4u eR3vDw0+PGNvbCB3 eNF6jU9qWFJfIhE8JTex F164VhQqyDVlPkoxr7kh x6oqxTe4WcFlZTNyvySj jDukYKI3e6ZiUx28 O78kPMglABGtIDGyASXp UKTefNrusc2upB5qZt0+ VE5gw5driv75jV64iXR+ MRIwNAK5nJymERip GNRohW1wAKctVyD6VGRh MrVliF83mCWvDWwqFq7r bIacnLdvJH1jVRGpjoon x369HrQts5jyAJFb wANlCRbyGPD3T74qc6A8 QKXoBLZtGAY1iKR0pZ9i bGlnbjogbGVmdDsgdmVy gNnnQSsfFCknM053 IHRvcDsnPlBhdGllbnQg RyBeFQu1X3WtDcq0PSLz oAkfUI9esTMyYDeeQt5w hAbjiTzfFQ8mWCNs parki937BqEhq8mmASTg aKIxNAxkEOC6K75jz7O7 MJLaSXZgVKC7yDW3sP4r bGlnbjogbGVmdDsg lcJbtEsrWNefIFgkA765 IHRvcDsnPkJpcnRoIERh fQA5FH52BL27pAPcc6T3 eCP2J5VcRRTnfjkr dvwryXS1SLJeGURpzI62 Jt9jcFduWy7kCCDgCAB2 GPVtuJWrX1HpxM5hCfFn VAGgZYBnY3VreYJw OHesS387FUscGrQ8XTFl gwKzX2FbFBIzpSxaKlO6 r5C7Cy1KQ1T4NQ12ER90 gHDbd5O8qCK2W8Ty WKKqepegpemqlUI5BJOr EVJvjD26Sk7xhDlbBq1v KHSoSKV9HNJetJJuC9Og kK0jDsClESKwNPMw R7FigVSgPKbbG797NLpb LcJ5ROOjyyWvV3KlBDRx fJcbOkU8y7W7Aq4TEGp8 JG90JE72fYXlz5A4 bMJ6O5QjNPUqgunzamqk dWX1PJYaYRFfdS57Na9u wLdnTx4hJINvQLB8JPYb fLHnA4YueG9tNcSu ZEOnQLCdO2SnvTUjJSvh R763HRotXzQ8LSFibdAc N5NuIQHhfApiEwX8u6E5 Gm3ITCWxAU03ETD7 lAG6SO46AS42K5JxDkle dGFibGU+PHRhYmxlIHdp ZHRoPScxMDAlJyBzdHls BP2hLv4fWCIdCWSi xCyueJAwTxYib5ewTLIg LThtXX2tzYfiB0TglQB0 UBMdp1d6Na40L31eQ9Or dXA+WZIakMA2lUL5 bR4sBqBoGzE7UNdeC149 JdNxzTGuTeuno8okr1um dNd6FsZ9FDHnklSwlWkb UZW5z3AtDb19Q12y IHdpZHRoPSIxNSUiIHZh qUyhru1ffD1gDt7+PGNv vFE8nMX9wF1hKvLrDwO9 MDxsO482OgWwsZMt Tayld2oyb0xcaBw9PxIq GUEffcKalMdrQQP5v5Is Ti10Q1PdhLuwi9JhXgn9 sd28hBFhk5Q7gON2 S0XzVDQycibsjQUcfEhi LZ9uLVBtlygzDRWhtR7q ALBvU1u6YqTeVkL8ASfw B5ScmsM2QKGmfEQt XQfeFNX5F07pe7P8VLWl FFTdAII4aTB5wC3lhNtp bjogbGVmdDsgdmVydGlj RHgdYUfvP556YLOk hWaxFURbvU0nEFYjuDTs qCjoGY6xCMZjrzciQi2F ZMJGFfvqUETLP8oPEJ21 CS48eRMfn3C0aJP5 B2LnNCSqmobbleifiZP7 QAKkCNGglN80vGKeOSeu Uv6br2D9f059IZPvQMOt pL66Sa8hgCxyIBDg vAIOhD8sxespm8buweny HoTkTKGeIMg8NWy7XBZw sUmrIsOmTEK9FzN5BPN9 yEZqnC2hgTznpclx aL5cPwi+MDkvMzAvMTk1 MDwvdGQ+RNYsCLF4nItw RQpdYOVbuE2pAVLcK5m0 TdNfChF0SZeaG6Ck HCVwmfmtZv04uY4hMmUs PiW7MCieW6QluhN6WDUm oAZjMAwqFII3Y36oj8X0 OOWfVYYdZED0kFN4 cQ4quWahskxvsFPpgIxd ixCtzEmkWFthPNzjP535 IHRvcDsnPjcyIFllYXJz AL91PP82aERiz0Q0 tZW3C9RuJOCoqsparrwz rYR8RXGqSKJnhL18vLGs JZfyXa5jl5L4z338ATVl QDBmcV45Zt9lcKkw OUHyfHMIuY0okuobp5as dawrCqDbMLGqXBp7DRh4 UUDrwDzrTsOlJMR5PyM2 AAB3rWCbuQ9yuToi axdftE1zOom+RmVtYWxl MN32GO60xOZgs0I6wXD3 W3WpHKTjrxlwspvqrHE4 CYLfXHDhtB17uRWi HWerBj7ix8C0z447UUAe MYOwgJ21Ed6noLxlYYZb eONJlM5pfahri0faxvkh FgIfURJqOJz9LWb1 EHCbpNcyTrMuEKK1YzS9 RHP0aQQdvB6ugGxetsic mC0uHoe+YTIlXVObc8Vf h4ArPQ62HZ09S4Ep PjwvdGFibGU+PHRhYmxl IHdpZHRoPScxMDAlJyBz iCcfHN7vEx0yPIMbLYNu zDgbdFFaKyXgb2dj LNJbJDsuXE3aaEqyE6Jn zGO0WLHqm7y1Cq84B55n H7DsrZK+TIVitBH6rDX6 bT3pLbJjVkD3YAkr H018VaHagBKaAuxbc4ah j5lqnGg5IcItVURegjSa lMkxNGM5o0YvRu72X11y IHdpZHRoPSIyMCUi WXXvaKpwmp6cuK0lAs8+ KBNelFF0yWM4bZ2gUoRi BlM7MCuhD063BrZtxPCs XspiC24xD3EfqMT+ HJCuQbg3ZUKapYofPI5j bVDcMLsnKt6jOOP3KdZs UxXdQRqrT9DcWSFaoiyh ozjohQA8PDHyEUWq kM13Pf9uuEfaPw2vONBj III1NFIkoZGmY0OtbN8i CvYeEXMtYDLkZ9ClkPOy TVktK486OEhvAuQ3 NBVyzkXjG7AgWTGaoSja PoI0o4T2Sq1XxAyvxDIr UE1rJnFqWTy5Y5HrSjw4 SUJsiYzjHH6zoHRn PSikTc0abWqsbFszAZ3b FAThwqwqa514QfMiy6sm VQDqtLHzCTdjQOG3V96f i1F2BDGeNJZyOVB3 cUL7eU7avKpuoxtvpWSp dDsgdmVydGljYWwtYWxp U618TEIfrRskYaNVCfd5 W7QeJoe5WPTmnWjv KZ9ttVXdYFjaLu2waQry qWqrEH3tANCdwbqiv044 VbDxa3irUOBdyDNqXBzy QJQ8P16gl5V3DFCj UDPdPJE7tAU7dP3ghLex bjogbGVmdDsgdmVydGlj GFzcCZmeH169SDXtcHrn Hg6QPpm5S0QrOdr4 RMDpaLnoWJ1tqKJdDRpq Zf6qsSmvyKfbPE3eWIYw jqwjd650WiOxg7npGFTr dTMrITanQGZ0N02w a4Q9XAFpHLXwNXS4uLP4 nH0ixIpnlitgpIRajSbd xwZcuUwdBRkpDEuoO509 IHRvcDsnPlBheWVy OjwvdGQ+FE31kg23P0Ak LrtkDeb1ATCoFUJ8lPX9 hF2lKGYlZHcjl2L6wJD9 G7TafsKcyy8yx2ur YXBz (more content not included)... Normal [facility] Blood Gas Art, with Lytes, Barb maria t, [place] 11-11-2022 a/A Ratio Art 72.90 % Normal >=0.80 [facility] Comment on above: Performed By: #### 4 [id number] #### [facility] [address] [place] [address] AaDO2 Art 24.8 mmHg High 5.0-15.0 [facility] Comment on above: Performed By: #### 4 [id number] #### [facility] [address] [place] [address] Allens Test Positive Normal [facility] Comment on above: Performed By: #### 4 [id number] #### [facility] [address] [place] [address] Base Excess Arterial 4.8 mmol/L Normal >=2.8 [facility] Comment on above: Performed By: #### 4 [id number] #### [facility] [address] [place] [address] cCa2+ Art 4.72 mg/dL Normal 4.40-5.30 [facility] Comment on above: Performed By: #### 4 [id number] #### [facility] [address] [place] [address] cCl- Art 105.0 mmol/L Normal 101.0-111.0 [facility] Comment on above: Performed By: #### 4 [id number] #### [facility] [address] [place] [address] cGlu Art 125 mg/dL High 55-99 [facility] Comment on above: Performed By: #### 4 [id number] #### [facility] [address] [place] [address] cK+ Art 4.0 mmol/L Normal 3.5-5.3 [facility] Comment on above: Performed By: #### 4 [id number] #### [facility] [address] [place] [address] cLac Art 1.1 mmol/L Normal .5-2.2 [facility] Comment on above: Performed By: #### 4 [id number] #### [facility] [address] [place] [address] winder operator+ Art 143.0 mmol/L Normal 135.0-145.0 [facility] Comment on above: Performed By: #### 4 [id number] #### [facility] [address] [place] [address] Drawn by JEREMIAH Invalid Interpretation Code [facility] Comment on above: Performed By: #### 4 [id number] #### [facility] [address] [place] [address] FCOHb Art 1.1 % Low 1.5-4.9 [facility] Comment on above: Result Comment: Refe rence range Nonsmoker <1.5% Smoker <5.0% Heavy Smoker <9.0% Performed By: #### 4 [id number] #### [facility] [address] [place] [address] FIO2 BG 21 Invalid Interpretation Code [facility] Comment on above: Performed By: #### 4 [id number] #### [facility] [address] [place] [address] FMetHb Art 0.3 % Normal 0.0-1.9 [facility] Comment on above: Performed By: #### 4 [id number] #### [facility] [address] [place] [address] FO2Hb Art 93.3 % Normal 92.0-100.0 [facility] Comment on above: Performed By: #### 4 [id number] #### [facility] [address] [place] [address] HCO3 (Bld) [Moles/Vol] 28.7 mmol/L High 22.0-26.0 [facility] Comment on above: Performed By: #### 4 [id number] #### [facility] [address] [place] [address] Hemoglobin (Bld) [Mass/Vol] 13.5 g/dL Normal 12.0-16.0 [facility] Comment on above: Performed By: #### 4 [id number] #### [facility] [address] [place] [address] Oxygen saturation in Blood 94.6 % Low 95.0-100.0 [facility] Comment on above: Performed By: #### 4 [id number] #### [facility] [address] [place] [address] P CO2 Arterial 46.1 mmHg High 35.0-45.0 [facility] Comment on above: Performed By: #### 4 [id number] #### [facility] [address] [place] [address] P O2 Arterial 66.9 mmHg Low 80.0-100.0 [facility] Comment on above: Performed By: #### 4 [id number] #### [facility] [address] [place] [address] pH Arterial 7.423 Normal 7.350-7.450 [facility] Comment on above: Performed By: #### 4 [id number] #### [facility] [address] [place] [address] Sample Site R Radial Normal [facility] Comment on above: Performed By: #### 4 [id number] #### [facility] [address] [place] [address] Sample Type Arterial Draw Normal [facility] Comment on above: Performed By: #### 4 [id number] #### [facility] [address] [place] [address] CARDIAC STRESS TESTon 2022 CARDIAC STRESS TEST [...] ambulatory oxygen. Clinical correlation required. Normal [facility] HEMOGLOBINon 11-11-2022 Hemoglobin (Bld) [Mass/Vol] 13.1 g/dL Normal 12.0-16.0 [facility] Comment on above: Performed By: #### P OCGLUC #### [facility] [address] [address] [address] Demetrio Kan LAB TESTINGon 11-11-2022 RECV HEADER SEE SCANNED REPORT IN HPF [facility] Comment on above: Performed By: #### M ISC ####[facility] [address] [address]Dr. Demetrio Kan REV FROM REF LAB 11/11/2022 [facility] Comment on above: Performed By: #### M ISC ####[facility] [address] [address]Dr. Demetrio Kan SENT TO REF LAB 11/11/2022 Normal [facility] Comment on above: Performed By: #### M ISC ####[facility] [id number] [id number]. 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 ([facility] Start: 04-18-2023 Tobacco smoking stat us WAIS Occasional tobacco smoker [facility] Start: 11-13-2020 End: 04-18-2023 Cigarettes smoked current (pack per day) - Reported [facility]5 [facility] Start: 04-18-2023 Tobacco use and exposure Smokeless tobacco non-user [facility] Start: 04-18-2023 Tobacco Comment PT STATES HAS CUT BACK BEEN USING PATCHES TO HELP- SAID SHE SMOKES ABOUT 4 A DAY [facility] Start: 1950 Sex Assigned At Not on file [facility] [facility] Start: 1950 Sex Assigned At Female F [facility] Unknown if ever smoked [employer] Other End: 10-03-2022 History of tobacco use Cigarette Smoker [facility] Adolescent depressio n screening assessment 0 [facility] Vital Signs Date Time Vital Sign Value Performing Clinician Facility 03-06-2024 [id number] Body height 152.4 cm [facility] 03-06-2024 13:26-0400 Body mass index (BMI) [Ratio] 21.2 kg/m2 [facility] 03-06-2024 13:26-0400 Body weight 49.44 kg [facility] 03-06-2024 13:26-0400 Diastolic blood pressure 62 mm[Hg] [facility] 03-06-2024 13:26-0400 Heart rate 71 /min [facility] 03-06-2024 13:26-0400 SaO2% (BldA) [Mass fraction] 98 % [facility] 03-06-2024 13:26-0400 Systolic blood pressure 106 mm[Hg] [facility] 02-08-2024 11:[id number] Body height 152.4 cm [facility] 02-08-2024 11:[id number] Body mass index (BMI) [Ratio] 21.2 kg/m2 [facility] 02-08-2024 11:03-0400 Body weight 49.44 kg [facility] 02-08-2024 11:03-0400 Diastolic blood pressure 60 mm[Hg] [facility] [place] 02-08-2024 11:03-0400 Heart rate 88 /min [facility] 02-08-2024 11:03-0400 SaO2% (BldA) [Mass fraction] 96 % [facility] [place] 02-08-2024 11:03-0400 Systolic blood pressure 104 mm[Hg] [facility] [place] 10-18-2023 13:13-0500 Body mass index (BMI) [Ratio] 21.64 kg/m2 Tasha Padgett MD Work Phone: [facility] [employer] [facility] 10-18-2023 13:13-0500 Body weight 50.26 kg Tasha Padgett MD Work Phone: [facility] 10-18-2023 13:13-0500 Diastolic blood pressure 56 mm[Hg] [facility] Padgett [facility] 10-18-2023 13:13-0500 Systolic blood pressure 108 mm[Hg] Tasha Padgett MD Work Phone: [employer] 08-03-2023 11:00-0400 Body height Lazara Hernandez Other [employer] Other 08-03-2023 11:00-0400 Body mass index (BMI) [Ratio] 20.89 kg/m2 Lazara Hernandez Other [employer] Other 08-03-2023 11:00-0400 Body weight 48.54 kg Lazara Hernandez Other [employer] Other 08-03-2023 11:00-0400 Diastolic blood pressure 64 mm[Hg] Lazara Hernandez Other [employer] Other 08-03-2023 11:00-0400 SaO2% (BldA) [Mass fraction] 98 % Lazara Mary Other [employer] Other 08-03-2023 11:00-0400 Systolic blood pressure 115 mm[Hg] Lazara Mary Other [employer] Other Hospital Discharge instructions 03-06-2024 Note Date & Type Note Facility 03-06-2024 Hospital Discharg e instructions Ambulatory OrdersReferral to Orthopedic Surgery Time Frame: 03/06/24, Location: None [facility] Work Phone: History of Present illness Narrative 10-18-2023 Tasha [...] TASHA PADGETT MD documented in this encounter [facility] Evaluation note 08-03-2023 Note Date & [...] associated symptoms Continue to follow with Dr Piña for management. Prior to your visit today [...] and willingness to quit at each appointment. [employer] Other Evaluation note Note Date & Type Note Facility Evaluation note No Information [employer] Other Evaluation note Note Date & Type Note Facility Evaluation note Diagnosis Midline cystocele- Primary Cystocele, midline documented in this encounter [employer] Evaluation note Note Date & Type Note Facility Evaluation note Diagnosis Onset Date Controlled type 2 diabetes m ellitus without complication acute Muscle cramping acute Restless leg syndrome acute [facility] Work Phone: Evaluation note Note Date & Type Note Facility Evaluation note Diagnosis Onset Date Cigarette nicotine dependenc e without complication acute Controlled type 2 diabetes m ellitus without complication acute Medicare annual wellness visit, subsequent acute Muscle cramping acute Post-menopausal acute Restless leg syndrome acute Screening for breast cancer acute Screening for colon cancer a cute Screening for osteoporosis a cute Osteoporosis acute [facility] Work Phone: History general Narrative - Reported Note Date & Type Note Facility History general Narrative - Reported Type Medical History diabetic Medical History hypertension Medical History heart attack Surgical History breast biopsy Surgical History stents x2 2012 Hospitalization History see surgical hx [employer] Other Instructions Note Date & Type Note Facility Instructions Not on filedocumented in this en counter [employer] Summary Purpose Family History Relationship Condition Age [...] without complication Muscle cramping Restless leg syndrome Chief Complaint MAWV Discuss Dexa Scan Reason for Visit Cigarette nicotine d ependence without complication Controlled type 2 diabetes mellitus without complication Medicare annual wellness visit, subsequent Muscle cramping Post-menopausal Restless leg syndrome Screening for breast cancer Screening for colon cancer Screening for osteoporosis Osteoporosis Additional Source Comments INFORMATION SOURCE (unrecogn ized section and content) DATE CREATED AUTHOR 11/18/[address] [facility] DATE CREATED AUTHOR AUTHOR'S ORGANIZ ATION 01/17/2023 [facility] DATE CREATED AUTHOR AUTHOR'S ORGANIZ ATION 01/19/2024 [facility] DATE CREATED AUTHOR AUTHOR'S ORGANIZ ATION 01/25/2024 [facility] DATE CREATED AUTHOR AUTHOR'S ORGANIZ ATION [facility] REASON FOR VISIT (unrecogniz ed section and content) Reason Comments Pessary; cleaning Care Teams (unrecognized sec tion and content) Service Delivery Management Consultant Relationship Specialty Start Date End Date Wesley Valdivia DO [address] [place] [address] PCP - General 08/02/13 Team Status: Active Member Role Status Dates Lazara Hernandez APRN [employer] Primary Care Provider Active Team Status: Inactive Member Role Status Dates Lazara Hernandez APRN [employer] MEMBERLeahC Primary Care Provider, Attending Provider Active Start: February 08, 2024 End: February 08, 2024 Team Status: Inactive Member Role Status Dates Lazara Hernandez APRN [employer] Primary Care Provider, Attending Provider Active Start: March 06, 2024 End: March 06, 2024 Goals (unrecognized section and content) Goals [...] BE BASED ON THE PRIMARY CLINICAL RECORDS. [facility] [employer] [facility]. provides no warranty or guarantee of the accuracy or completeness of information in this document.
[2024-04-19 09:06] LABS: Hematocrit 44.9 % (36.0-48.0); Hemoglobin 14.6 g/dL (12.0-16.0); Mean Corpuscular HGB Conc 32.5 g/dL (29.9-35.2); Mean Corpuscular Hemoglobin 30.5 pg (26.7-34.0); Mean Corpuscular Volume 93.7 fL (81.0-99.0); Mean Platelet Volume 10.1 fL (9.5-13.5); Platelet Count 172 10^3/uL (150-450); Red Blood Count 4.79 10^6/uL (4.20-5.40); White Blood Count 7.1 10^3/uL (4.0-11.0)
[2024-04-19 09:23] LABS: Red Cell Distribution Width 12.8 % (11.0-15.0)
[2024-04-19 09:27] LABS: Basophils Abs Manual 0.07 10^3/uL (0.00-0.10); Eosinophils Absolute Manual 0.21 10^3/uL (0.00-0.70); Lymphocytes Absolute Manual 2.55 10^3/uL (1.20-3.80); Monocytes Absolute Manual 0.07 10^3/uL (0.30-0.80); Segmented Neut Absolute Manual 3.69 10^3/uL (1.4-6.5)
[2024-04-19 09:28] LABS: Atypical Lymphocytes Abs Man 0.49
[2024-04-19 10:46] LABS: Alanine Aminotransferase 25 U/L (14-59); Albumin Level 3.2 g/dL (3.4-5.0); Alkaline Phosphatase 126 U/L (46-116); Anion Gap 9.7; Aspartate Amino Transferase 17 U/L (15-37); BUN Creatinine Ratio 21.9; Bilirubin Total 0.4 mg/dL (0.2-1.0); Calcium 8.8 mg/dL (8.5-10.1); Carbon Dioxide 31.6 mmol/L (21.0-32.0); Chloride 106 mmol/L (98-107); Estimated GFR (African America >60 (>=60); Estimated GFR (Non-African Ame 57 (>=60); Globulin 3.2 g/dL; Glucose 100 mg/dL (74-106); Potassium 4.3 mmol/L (3.5-5.1); Sodium 143 mmol/L (136-145); Thyroid Stimulating Hormone 1.983 uIU/mL (0.358-3.740); Total Protein 6.4 g/dL (6.4-8.2)
[2024-04-20 11:09] LABS: PTH, Intact 30 pg/mL (15-65)
== END 2024-04-19 08:21 | disposition home or self-care (01) ==
LOC: LAB 08:22
PROVIDERS: PCP Nurse Practitioner Family; Visit Provider Nurse Practitioner Family
DX: R25.2 Cramp and spasm (principal); M81.0 Age-related osteoporosis without current pathological fracture
CPT/HCPCS: 36415; 80053; 82306; 83970; 84443; 85007; 85027

== ENCOUNTER 2024-05-11 07:41 | Outpatient (RCR) | payer MEDICARE, OTHER, MEDICAID, SELFPAY ==
[2024-05-11] MEDS: ROMOSOZUMAB-AQQG 210 MG/2.34 ML SYRINGE SQ (13:14)
[2024-05-11 13:16] VITALS: BP 133/77; PULSE 86; TEMP 36.8; O2SAT 92
--- NOTE | 2024-05-11 13:17 | PC.NURSE ---
1252: Pt. to [facility] amb. for Evenity injection. Seated in recliner. VSS. Educated pt. on medication, questions addressed. Given water. 1314: Medicated with Evenity as directed to right arm x's 2 inj. sites. Pt. tolerated without c/o. Bandaid placed for trace bleeding. Remains in recliner for brief obs.
--- NOTE | 2024-05-11 13:33 | PC.NURSE ---
Pt. without s&s of adverse reaction. No bleeding through bandaid. D/c'd amb to home.
== END 2024-06-02 23:59 | disposition home or self-care (01) ==
LOC: INF 07:41
PROVIDERS: PCP Nurse Practitioner Family; Visit Provider Nurse Practitioner Family
DX: M81.0 Age-related osteoporosis without current pathological fracture (principal)
CPT/HCPCS: 96372; J3111

== ENCOUNTER 2024-06-14 07:54 | Outpatient (RCR) | payer MEDICARE, OTHER, MEDICAID, SELFPAY ==
[2024-06-14 12:51] VITALS: BP 111/75; PULSE 85; TEMP 36.2; O2SAT 97
[2024-06-14] MEDS: ROMOSOZUMAB-AQQG 210 MG/2.34 ML SYRINGE SQ (13:01)
== END 2024-07-02 23:59 | disposition home or self-care (01) ==
LOC: INF 07:54
PROVIDERS: PCP Nurse Practitioner Family; Visit Provider Nurse Practitioner Family
DX: M81.0 Age-related osteoporosis without current pathological fracture (principal)
CPT/HCPCS: 96372; J3111

== ENCOUNTER 2024-06-20 13:52 | Outpatient (OUT) | payer MEDICARE, OTHER, MEDICAID, SELFPAY ==
--- OUTSIDE RECORDS SUMMARY | 2024-06-20 14:07 | XMS_ITS | CCD ---
Author Organization [facility] CliniSyfl Care Team Providers Care 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 Name Role Phone SAMSA, NAGA P Attending [...] PATEL Consulting Unavailable SISTER, MICHAEL Consulting Unavailable COATJOCY Neumann Consulting Unavailable Lazara Hernandez Unavailable [phone] Wesley Valdivia DO Primary Care Provider TASHA PADGETT Referring Unavailable HOUSE, WESLEY De Los Santos Primary Care Unavailable TASHA PADGETT Attending Unavailable HOUSE, WESLEY P Referring Unavailable HOUSE, WESLEY P Primary Care Unavailable LIBERTY RAMÍREZ Attending Unavailable HOUSE, WESLEY P Referring Unavailable HOUSE, WESLEY P Primary Care Unavailable TASHA PADGETT Attending Unavailable HOUSE, WESLEY P Referring Unavailable HOUSE, WESLEY P Primary Care Unavailable TASHA PADGETT Attending Unavailable HOUSE, WESLEY P Referring Unavailable HOUSE, WESLEY P Primary Care Unavailable MICHELLE CHIN Referring Unavailable HOUSE, WESLEY P Primary Care Unavailable NICKYAVINCE Attending Unavailable HOUSE, WESLEY De Los Santos Referring Unavailable LAZARA HERNANDEZ Primary Care Unavailable OOSTRA, VINCE E Referring Unavailable ROHRBACHER, LAZARA Primary Care Unavailable Allergies Allergy Classification Reported Allergen(s) Allergy Type Date of Onset Reaction(s) Facility (1 source) Ticagrelor Drug Allergy 12-29-2012 [facility] Repository (4 sources) Ticagrelor; Translations: [TICAGRELOR] Drug Allergy 11-19-2016 [facility] Medications Current Medications Medication Drug Class(es) Dates [...] 12/19/2022 Active atorvastatin 80 mg oral tablet (9 sources) HMG-CoA Reductase Inhibitor Start: 01-30-2024 End: 04-16-2024 take 80 mg by mouth once daily Atorvastatin Active 80 MG PO Daily 90 90 April 16, 2024 3:38pm Start: 02-25-2023 take 1 tablet by jarret [...] / glycopyrrolate 0.009 mg/actuat metered dose inhaler (6 sources) Corticosteroid, beta2-Adrenergic Agonist Start: 01-30-2024 take 1 puff(s) by inhalation twice daily Avayxfyfij-Ggcqgfit-Yuwlitqxjl Active 2 PUFF INHALATION Twice daily January 30, 2024 12:00am take 2 puff(s) by inhalation twi ce daily Breztri Aerosphere 160-9-4.8 MCG/ACT 2 puffs Inhalation Twice a day Active calcium carbonate 1500 mg / cholecalciferol 500 unt oral capsule (2 sources) Vitamin D Start: 04-17-2024 Calcium Carbonate-Vitamin D3 (Calcium 600 With Vitamin D3) 600 mg-12.5 mcg (500 unit) capsule Active 0 PO .COMPLEX April 17, 2024 12:00am orally twice daily; cholecalciferol 0.05 mg oral capsule (2 sources) Vitamin D Start: 04-17-2024 take 50 ug by mouth once daily Cholecalciferol (Vitamin D3) Active 50 MCG PO Daily April 17, 2024 12:00am furosemide 20 mg oral tablet (7 sources) Loop Diuretic Start: 01-30-2024 take 20 [...] 1 Application lisinopril 5 mg oral tablet (7 sources) Angiotensin Converting Enzyme Inhibitor Start: 01-30-2024 take 5 mg by mouth once daily Lisinopril Active 5 MG PO Daily January 30, 2024 12:00am Start: 02-07-2023 take 1 tablet by jarret th in the morning lisinopriL (PRINIVIL,ZESTRIL) 5 mg tablet Take 1 tablet (5 mg total) by mouth in the morning. 90 tablet 3 02/07/2023 Active magnesium oxide 400 mg oral tablet (5 sources) Start: 02-09-2024 End: 04-16-2024 take 1 tablet by mouth once daily Magnesium Oxide (Magox) 400 mg (241.3 mg magnesium) tablet Active 400 MG PO Daily 90 90 April 16, 2024 3:39pm metFORMIN hydrochloride 500 mg oral tablet (7 sources) Biguanide Start: 01-30-2024 take 500 mg [...] ranolazine 500 mg extended release oral tablet (7 sources) Anti-anginal Start: 01-30-2024 take 500 mg [...] aspirin 81 mg delayed release oral tablet (4 sources) Platelet Aggregation Inhibitor, Nonsteroidal Anti-inflammatory Drug Start: 01-30-20 End: 02-08-20 24 take 81 mg by mouth once daily [...] Not-Taking pramipexole dihydrochloride 1 mg oral tablet (7 sources) Nonergot Dopamine Agonist Start: 01-30-20 End: 02-08-20 take 1 mg by mouth once daily at bedtime Pramipexole Discontinued 1 MG PO Daily at bedtime January 30, 2024 12:00am February 08, 2024 11:31am Start: 08-03-2023 pramipexole (M IRAPEX) 1 mg tablet Problems Active Problems Problem Classification Problem Date [...] Chronic Coronary atherosclerosis and other heart disease (6 sources) 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; Translations: [Disorder of cardiovascular system] Onset: 08-02-2018 Chronic Coronary atherosclerosis and other heart disease (2 sources) Presence of coronary angioplasty implant and graft; Translations: [PRESENCE COR ANGPLSTY IMPLANT AND GRAFT] Onset: 01-05-2023 Episodic Diabetes mellitus without complication (10 sources) Type 2 diabetes mellitus without complication; Translations: [Type 2 diabetes mellitus without complications] Chronic Disorders of lipid metabolism (6 sources) Hyperlipidemia, unspecified; Translations: [Mixed hyperlipidemia] Onset: [...] Onset: 02-14-2017 Resolved: 01-04-2019 02-14-2017 Chronic Osteoporosis (7 sources) Osteoporosis; Translations: [Age-related osteoporosis without current pathological fracture] 03-06-2024 Chronic Other aftercare (2 sources) 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; Translations: [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] Onset: 01-05-2023 Episodic Other aftercare (1 source) [facility] (current) use of oral hypoglycemic drugs; Translations: [[facility] USE ORAL HYPOGLYCEMIC DX] Onset: 01-05-2023 Episodic Other connective tissue disease (4 sources) Cramp; Translations: [Cramp and spasm] 02-08-2024 Episodic Other connective tissue disease (3 sources) Cramp and spasm; Translations: [Cramp of [...] Other hereditary and degenerative nervous system conditions (6 sources) Restless legs; Translations: [Restless legs syndrome] 02-08-2024 Chronic Other hereditary and degenerative nervous system conditions (4 sources) Restless legs syndrome; Translations: [Restless legs syndrome (RLS)] Chronic Other injuries and conditions due to external causes (1 source) History of falling; Translations: [HISTORY OF FALLING] Onset: 01-05-2023 Episodic Other screening for suspected conditions (not mental disorders or infectious disease) (15 sources) Patient encounter status; Translations: [Encounter for screening for osteoporosis] 02-09-2024 Episodic Other skin disorders (1 source) Finding of neck region; Translations: [Localized swelling, mass and lump, neck] 06-20-2024 Episodic Other skin disorders (1 source) Localized swelling, mass and lump, neck; Translations: [Swelling, mass, or lump in head and neck] 06-20-2024 Episodic Peripheral and visceral atherosclerosis (9 sources) Peripheral vascular disease, unspecified; Translations: [Peripheral vascular disease] Onset: 11-22-2016 11-22-2016 Chronic Pneumonia (except that caused by tuberculosis or sexually transmitted disease) (1 source) Pneumonia, unspecified organism; Translations: [PNEUMONIA UNSPECIFIED ORGANISM] Onset: 01-05-2023 Episodic Prolapse of female genital organs (4 sources) Midline cystocele; Translations: [Cystocele, midline] Onset: 10-26-2017 10-18-2023 Chronic Residual codes; unclassified (3 sources) Postmenopausal state; Translations: [Asymptomatic menopausal state] 02-09-2024 Episodic Residual codes; unclassified (2 sources) Asymptomatic menopausal state; Translations: [Asymptomatic postmenopausal status [...] sepsis, unspecified] Onset: 12-29-2022 Episodic Substance-related disorders (10 sources) Nicotine dependence, cigarettes, with withdrawal; Translations: [...] Translations: [Tobacco use] Onset: 05-12-2020 05-12-2020 Episodic Residual codes; unclassified (1 source) Tobacco use; Translations: [Tobacco use] Onset: 05-12-2020 Episodic Respiratory failure; insufficiency; arrest (adult) (1 source) Acute respiratory failure; Translations: [Acute respiratory failure with hypoxia] Onset: 10-04-2022 10-05-2022 Episodic Results Test Name Value Interpretation Reference Range Facility CBC AND AUTO DIFFon 06-16-20 24 ABSOLUTE BASOPHIL 0.1 X10E9/L Normal 0.0-0.2 [facility] Comment on above: Performed By: #### Chantel SALAZAR CMP, , #### [facility] ([id number]) [address], [address] [place] [address] ABSOLUTE NEUTROPHIL 3.7 X10E9/L Normal 1.5-6.6 [facility] Comment on above: Performed By: #### Chantel SALAZAR CMP, , 27585-2 #### [facility] ([id number]) [address], [address] [place] [address] Basophils/100 WBC (Bld) 0.9 % Normal [facility] Comment on above: Performed By: #### Chantel SALAZAR CMP, , 15246-4 #### [facility] ([id number]) [address], [address] [place] [address] Eosinophils (Bld) [#/Vol] 0.3 10*3/uL Normal 0.0-0.4 [facility] Comment on above: Performed By: #### Chantel SALAZAR CMP, , #### [facility] ([id number]) [address], [address] [place] [address] Eosinophils/100 WBC (Bld) 4.1 % Normal [facility] Comment on above: Performed By: #### C MARIE CMP, , #### [facility] ([id number]) [address], [address] [place] [address] Erythrocyte distribution width (RBC) [Ratio] 14.1 % Normal 11.5-15.0 [facility] Comment on above: Performed By: #### C MARIE, CMP, , #### [facility] ([id number]) [address] [place] [address] Hematocrit (Bld) [Volume fraction] 43.4 % Normal 35-47 [facility] Comment on above: Performed By: #### Chantel BCA, CMP, , #### [facility] ([id number]) [address], [address] [place] [address] Hemoglobin (Bld) [Mass/Vol] 14.3 g/dL Normal 11.7-15.5 [facility] Comment on above: Performed By: #### Chantel BCA, CMP, , #### [facility] ([id number]) [address], [address] [place] [address] Lymphocytes (Bld) [#/Vol] 1.8 10*3/uL Normal 1.0-3.5 [facility] Comment on above: Performed By: #### C BCA, CMP, , #### [facility] ([id number]) [address] [place] [address] Lymphocytes/100 WBC (Bld) 28.5 % Normal [facility] Comment on above: Performed By: #### C BCA, CMP, , #### [facility] ([id number]) [address], [address] [place] [address] MCH (RBC) [Entitic mass] 30.9 pg Normal 27-34 [facility] Comment on above: Performed By: #### C BCA, CMP, , #### [facility] ([id number]) [address], [address] [place] [address] MCHC (RBC) [Mass/Vol] 32.9 g/dL Normal 32-36 [facility] Comment on above: Performed By: #### C BCA, CMP, , #### [facility] ([id number]) [address] [place] [address] MCV (RBC) [Entitic vol] 94 fL Normal 80-100 [facility] Comment on above: Performed By: #### Chantel BCA, CMP, , #### [facility] ([id number]) [address] [place] [address] Monocytes (Bld) [#/Vol] 0.5 10*3/uL Normal 0-0.9 [facility] Comment on above: Performed By: #### Chantel BCA, CMP, , #### [facility] ([id number]) [address] [place] [address] Monocytes/100 WBC (Bld) 8.0 % Normal [facility] Comment on above: Performed By: #### C BCA, CMP, , #### [facility] ([id number]) [address] [place] [address] Neutrophils/100 WBC (Bld) 58.5 % Normal [facility] Comment on above: Performed By: #### C BCA, CMP, , #### [facility] ([id number]) [address], [address] [place] [address] Platelet mean volume (Bld) [Entitic vol] 8.7 fL Normal 7-12 [facility] Comment on above: Performed By: #### C BCA, CMP, , #### [facility] ([id number]) [address] [place] [address] Platelets (Bld) [#/Vol] 171 10*3/uL Normal 150-450 [facility] Comment on above: Performed By: #### C BCA, CMP, , #### [facility] ([id number]) [address], [address] [place] [address] RBC COUNT 4.63 X10E12/L Normal 3.80-5.20 [facility] Comment on above: Performed By: #### C BCA, CMP, , #### [facility] ([id number]) [address], [address] [place] [address] WBC (Bld) [#/Vol] 6.4 10*3/uL Normal 4.0-11.0 [facility] Comment on above: Performed By: #### C BCA, CMP, , #### [facility] ([id number]) [address] [place] [address] COMPREHENSIVE METABOLIC PANE Sal 06-16-2024 Albumin [Mass/Vol] 3.8 g/dL Normal 3.2-5.3 [facility] Comment on above: Performed By: #### C BCA, CMP, , 14534-9 #### [facility] ([id number]) [address] [place] [address] ALP [Catalytic activity/Vol] 103 U/L Normal 39-130 [facility] Comment on above: Performed By: #### C BCA, CMP, , 77777-5 #### [facility] ([id number]) [address] [place] [address] ALT [Catalytic activity/Vol] 13 U/L Normal 0-31 [facility] Comment on above: Performed By: #### C BCA, CMP, , #### [facility] ([id number]) [address] [place] [address] Anion gap [Moles/Vol] 6 mmol/L Normal 5-15 [facility] Comment on above: Performed By: #### C BCA, CMP, , 34887-9 #### [facility] ([id number]) [address] [place] [address] AST [Catalytic activity/Vol] 14 U/L Normal 0-41 [facility] Comment on above: Performed By: #### C BCA, CMP, , 17561-5 #### [facility] ([id number]) [address] [place] [address] Bilirubin [Mass/Vol] 0.6 mg/dL Normal 0.3-1.2 [facility] Comment on above: Performed By: #### C BCA, CMP, , #### [facility] ([id number]) [address] [place] [address] Calcium [Mass/Vol] 10.0 mg/dL Normal 8.5-10.5 [facility] Comment on above: Performed By: #### C BCA, CMP, , 78973-3 #### [facility] ([id number]) [address] [place] [address] Chloride [Moles/Vol] 107 mmol/L Normal 98-109 [facility] Comment on above: Performed By: #### C PARKER SALAZAR, , #### [facility] ([id number]) [address] [place] [address] CO2 [Moles/Vol] 32 mmol/L Normal 22-32 [facility] Comment on above: Performed By: #### C PARKER SALAZAR, , #### [facility] ([id number]) [address] [place] [address] Creatinine [Mass/Vol] 0.92 mg/dL Normal 0.40-1.00 [facility] Comment on above: Result Comment: METH OD TRACEABLE TO IDMS STANDARD Performed By: #### C PARKER SALAZAR, , #### [facility] ([id number]) [address] [place] [address] GFR/1.73 sq M.predicted among non-blacks MDRD (S/P/Bld) [Vol rate/Area] 66 mL/min/{1.73_m2} Normal >59 [facility] Comment on above: Result Comment: Reported eGFR is based on the CKD-EPI 2020 equation that does not use a race coefficient. Performed By: #### C PARKER SALAZAR, , #### [facility] ([id number]) [address] [place] [address] Glucose [Mass/Vol] 112 mg/dL High 65-99 [facility] Comment on above: Performed By: #### C PARKER SALAZAR, , #### [facility] ([id number]) [address] [place] [address] Potassium [Moles/Vol] 4.0 mmol/L Normal 3.5-5.0 [facility] Comment on above: Performed By: #### C PARKER SALAZAR, , #### [facility] ([id number]) [address] [place] [address] Protein [Mass/Vol] 5.8 g/dL Low 6.0-8.0 [facility] Comment on above: Performed By: #### C BCA, CMP, , 24105-8 #### [facility] ([id number]) [address] [place] [address] Sodium [Moles/Vol] 145 mmol/L Normal 134-146 [facility] Comment on above: Performed By: #### C BCA, CMP, 01074-5, 71671-6 #### [facility] ([id number]) [address] [place] [address] Urea nitrogen [Mass/Vol] 20 mg/dL Normal 5-27 [facility] Comment on above: Performed By: #### C BCA, CMP, 89246-7, 21787-0 #### [facility] ([id number]) [address] [place] [address] Lipid 1996 panelon 4 Cholesterol [Mass/Vol] 152 mg/dL Normal 150-200 [facility] Comment on above: Performed By: #### C BCA, CMP, , 48381-7 #### [facility] ([id number]) [address] [place] [address] Cholesterol in HDL [Mass/Vol] 53 mg/dL Normal >39 [facility] Comment on above: Result Comment: HDL <40 mg/dL - High Risk HDL > or = 40mg/dL- Desirable HDL >60 mg/dL - Negative Risk Performed By: #### C BCA, CMP, , #### [facility] ([id number]) [address] [place] [address] Cholesterol in LDL [Mass/Vol] 82 mg/dL Normal <130 [facility] Comment on above: Result Comment: LDL <100 mg/dL - Desirable LDL >160 mg/dL - High Risk Performed By: #### C BCA, CMP, 24198-9, 51032-3 #### [facility] ([id number]) [address] [place] [address] Cholesterol in VLDL [Mass/Vol] 17 mg/dL Normal 0-30 [facility] Comment on above: Performed By: #### Chantel BCA, CMP, , 40089-1 #### [facility] ([id number]) [address] [place] [address] CHOLESTEROL:HDL 2.9 Normal 1.0-5.0 [facility] Comment on above: Performed By: #### Chantel BCA, CMP, , 35025-3 #### [facility] ([id number]) [address] [place] [address] Triglyceride [Mass/Vol] 84 mg/dL Normal 27-150 [facility] Comment on above: Performed By: #### C BCA, CMP, 92329-9, 53175-2 #### [facility] ([id number]) [address] [place] [address] MAGNESIUMon 06-16-2024 Magnesium [Mass/Vol] 1.8 mg/dL Normal 1.8-2.6 [facility] Comment on above: Performed By: #### Chantel BCA, CMP, 28448-9, 17288-8 #### [facility] ([id number]) [address] [place] [address] Basophils/100 WBC Manual cnt (Bld)on 04-19-2024 Basophils/100 WBC (Bld) 1.0 % 0.2-2.[address] [facility] Eosinophils/100 WBC Manual c nt (Bld)on 04-19-2024 Eosinophils/100 WBC (Bld) 3.0 % 0.9-7.[address] [facility] Erythrocyte distribution wid th Auto (RBC) [Ratio]on 04-19-2024 Erythrocyte distribution width (RBC) [Ratio] 12.8 % 11.0-15.[address] [facility] Estimated glomerular filtrat ion rate (GFR) non- Americanon 04-19-2024 GFR/1.73 sq M.predicted among non-blacks MDRD (S/P/Bld) [Vol rate/Area] 57 mL/min/{1.73_m2} Low >=[address] [facility] Globulin Calc (S) [Mass/Vol] on 04-19-2024 Globulin (S) [Mass/Vol] 3.2 g/dL [facility] Hematocrit Auto (Bld) [Volum e fraction]on 04-19-2024 Hematocrit (Bld) [Volume fraction] 44.9 % 36.0-48.[address] [facility] Hemoglobin [Mass/volume] in Bloodon 04-19-2024 Hemoglobin (Bld) [Mass/Vol] 14.6 g/dL 12.0-16.[address] [facility] Laboratory - Chemistry and C hemistry - challengeon 04-19-2024 Albumin [Mass/Vol] 3.2 g/dL Low 3.4-5.0 [facility] ALP [Catalytic activity/Vol] 126 U/L High 46-[address] [facility] ALT [Catalytic activity/Vol] 25 U/L 14-[address] [facility] AST [Catalytic activity/Vol] 17 U/L 15-[address] [facility] Bilirubin [Mass/Vol] 0.4 mg/dL 0.2-1.[address] [facility] Calcium [Mass/Vol] 8.8 mg/dL 8.5-10.1 [facility] Chloride [Moles/Vol] 106 mmol/L 98-[address] [facility] CO2 [Moles/Vol] 31.6 mmol/L 21.0-32.0 [facility] Creatinine [Mass/Vol] 0.96 mg/dL 0.55-1.[address] [facility] GFR/1.73 sq M.predicted MDRD (S/P/Bld) [Vol rate/Area] mL/min/{1.73_m2} >=[address] [facility] Glucose [Mass/Vol] 100 mg/dL 74-106 [facility] Potassium [Moles/Vol] 4.3 mmol/L 3.5-5.[address] [facility] Protein [Mass/Vol] 6.4 g/dL 6.4-8.2 [facility] Sodium [Moles/Vol] 143 mmol/L 136-145 [facility] TSH Qn 1.983 m[IU]/L 0.358-3.[address] [facility] Urea nitrogen [Mass/Vol] 21.0 mg/dL High 7.0-18.[address] [facility] Urea nitrogen/Creatinine [Mass ratio] 21.9 mg/mg [facility] Laboratory - Hematology and Cell countson 04-19-2024 Lymphocytes/100 WBC (Bld) 36.0 % 20.5-60.[address] [facility] Monocytes/100 WBC (Bld) 1.0 % Low 1.7-12.[address] [facility] Leukocytes [#/volume] correc bear for nucleated erythrocytes in Blood by Automated counon 04-19-2024 WBC corrected for nucl RBC Auto (Bld) [#/Vol] 7.1 10 3/uL 4.0-11.[address] [facility] MCH Auto (RBC) [Entitic mass ]on 04-19-2024 MCH (RBC) [Entitic mass] 30.5 pg 26.7-34.[address] [facility] MCHC Auto (RBC) [Mass/Vol]on 04-19-2024 MCHC (RBC) [Mass/Vol] 32.5 g/dL 29.9-35.[address] [facility] MCV Auto (RBC) [Entitic vol] on 04-19-2024 MCV (RBC) [Entitic vol] 93.7 fL 81.0-99.[address] [facility] No Panel Informationon 04-19 25-Hydroxy Vitamin D Total 29.2 ng/mL [facility] Comment on above: <20 ng/mL Vit D defi cient20-<30 ng/mL Vit D [id number] ng/mL Vit D sufficient>100 ng/mL Potential Toxicity Absolute Basophils (Manual) 0.07 10 3/uL 0.00-0.[address] [facility] Eosinophils # (Manual) 0.21 10 3/uL 0.00-0.[address] [facility] Lymphocytes # (Manual) 2.55 10 3/uL 1.20-3.[address] [facility] Monocytes # (Manual) 0.07 10 3/uL Low 0.30-0.80 [facility] Parathyroid Hormone (Intact) 30 pg/mL 15-[address] [facility] Comment on above: Performed at: [facility] [place] [id number] Director: Roshan Swan PhD, Phone: [phone] Reactive Lymphocytes 0.[address] [facility] Reactive Lymphocytes 7.0 % [facility] Segmented Neutrophils # (Manual) 3.69 10 3/uL 1.4-6.[address] [facility] Platelet mean volume Auto (B ld) [Entitic vol]on 04-19-2024 Platelet mean volume (Bld) [Entitic vol] 10.1 fL 9.5-13.5 [facility] Platelets Auto (Bld) [#/Vol] on 04-19-2024 Platelets (Bld) [#/Vol] 172 10 3/uL 150-[address] [facility] RBC Auto (Bld) [#/Vol]on RBC (Bld) [#/Vol] 4.79 10 6/uL 4.20-5.40 [facility] Segmented neutrophils/100 WB C Manual cnt (Bld)on 04-19-2024 Segmented neutrophils/100 WBC (Bld) 52.0 % [facility] Serum or plasma albumin/glob ulin mass ratioon 04-19-2024 Albumin/Globulin [Mass ratio] 1.0 {ratio} [facility] Serum or plasma anion gap de terminationon 04-19-2024 Anion gap [Moles/Vol] 9.7 mmol/L [facility] Estimated glomerular filtrat ion rate (GFR) non- Americanon 02-08-2024 GFR/1.73 sq M.predicted among non-blacks MDRD (S/P/Bld) [Vol rate/Area] 60 mL/min/{1.73_m2} >=[address] [facility] Globulin Calc (S) [Mass/Vol] on 02-08-2024 Globulin (S) [Mass/Vol] 3.3 g/dL [facility] HbA1c HPLC (Bld) [Mass fract ion]on 02-08-2024 HbA1c (Bld) [Mass fraction] 6.9 % [facility] Laboratory - Chemistry and C hemistry - challengeon 02-08-2024 Albumin [Mass/Vol] 3.3 g/dL Low 3.4-5.0 [facility] ALP [Catalytic activity/Vol] 119 U/L High 46-[address] [facility] ALT [Catalytic activity/Vol] 32 U/L 14-[address] [facility] AST [Catalytic activity/Vol] 20 U/L 15-[address] [facility] Bilirubin [Mass/Vol] 0.7 mg/dL 0.2-1.[address] [facility] Calcium [Mass/Vol] 9.5 mg/dL 8.5-10.1 [facility] Chloride [Moles/Vol] 105 mmol/L 98-[address] [facility] CO2 [Moles/Vol] 30.9 mmol/L 21.0-32.0 [facility] Creatinine [Mass/Vol] 0.92 mg/dL 0.55-1.[address] [facility] GFR/1.73 sq M.predicted MDRD (S/P/Bld) [Vol rate/Area] mL/min/{1.73_m2} >=[address] [facility] Glucose [Mass/Vol] 110 mg/dL High 74-106 [facility] Magnesium [Mass/Vol] 1.8 mg/dL 1.8-2.[address] [facility] Potassium [Moles/Vol] 3.9 mmol/L 3.5-5.[address] [facility] Protein [Mass/Vol] 6.6 g/dL 6.4-8.2 [facility] Sodium [Moles/Vol] 142 mmol/L 136-145 [facility] Urea nitrogen [Mass/Vol] 21.0 mg/dL High 7.0-18.[address] [facility] Urea nitrogen/Creatinine [Mass ratio] 22.8 mg/mg [facility] Serum or plasma albumin/glob ulin mass ratioon 02-08-2024 Albumin/Globulin [Mass ratio] 1.0 {ratio} [facility] Serum or plasma anion gap de terminationon 02-08-2024 Anion gap [Moles/Vol] 10.0 mmol/L [facility] VAGINITIS PANEL PCRon 2023 VAGINITIS PANEL PCR [...] clinical presentation to determine patient diagnosis. Normal [facility] Comment on above: Performed By: #### V PPCR #### [facility] ([id number]) [address], [address] [place] [address] TRANSFERRINon 01-12-2023 Transferrin [Mass/Vol] 234 mg/dL Normal 192-364 [facility] Comment on above: Performed By: #### P OCGLUC #### [facility] [address] [place] [address] Dr. Demetrio Kan CBC AUTO DIFFon 01-11-2023 BASO # 0.1 103/ul Normal 0.0-0.1 [facility] Comment on above: Performed By: #### C BC, RETIC #### [facility] [address] [place] [address] Dr. Demetrio Kan Basophils/100 WBC (Bld) 0.8 % Normal 0.2-2.0 [facility] Comment on above: Performed By: #### C BC, RETIC #### [facility] [address] [place] [address] Dr. Demetrio Kan EO # 0.1 103/ul Normal 0.0-0.7 [facility] Comment on above: Performed By: #### C BC, RETIC #### [facility] [address] [place] [address] Dr. Demetrio Kan Eosinophils/100 WBC (Bld) 1.1 % Normal 0.9-7.0 [facility] Comment on above: Performed By: #### C BC, RETIC #### [facility] [address] [place] [address] Dr. Demetrio Kan Erythrocyte distribution width (RBC) [Ratio] 14.6 % Normal 11.0-15.0 [facility] Comment on above: Performed By: #### C BC, RETIC #### [facility] [address] [place] [address] Dr. Demetrio Kan Hematocrit (Bld) [Volume fraction] 39.4 % Normal 36.0-48.0 [facility] Comment on above: Performed By: #### C BC, RETIC #### [facility] [address] [place] [address] Dr. Demetrio Kan Hemoglobin (Bld) [Mass/Vol] 12.6 g/dL Normal 12.0-16.0 [facility] Comment on above: Performed By: #### C BC, RETIC #### [facility] [address] [place] [address] Dr. Demetrio Kan IG # 0.05 10e3/ul Critically high 0.00-0.03 [facility] Comment on above: Performed By: #### C BC, RETIC #### [facility] [address] [address] [address] Demetroi Kan IG % 0.6 % Critically high 0.0-0.5 [facility] Comment on above: Performed By: #### C BC, RETIC #### [facility] [address] [address] [address] Demetrio Kan LYMPH # 1.2 103/ul Normal 1.2-3.8 [facility] Comment on above: Performed By: #### C BC, RETIC #### [facility] [address] [address] [address] Demetrio Kan Lymphocytes/100 WBC (Bld) 14.3 % Critically low 20.5-60.0 [facility] Comment on above: Performed By: #### C BC, RETIC #### [facility] [address] [address] [address] Demetrio Kan MANUAL DIFF REQ NO Normal [facility] Comment on above: Performed By: #### C BC, RETIC #### [facility] [address] [address] [address] Demetrio Kan MCH (RBC) [Entitic mass] 31.0 pg Normal 26.7-34.0 [facility] Comment on above: Performed By: #### C BC, RETIC #### [facility] [address] [address] [address] Demetrio Kan MCHC (RBC) [Mass/Vol] 32.0 g/dL Normal 29.9-35.2 [facility] Comment on above: Performed By: #### C BC, RETIC #### [facility] [address] [address] [address] Demterio Kan MCV (RBC) [Entitic vol] 97.0 fL Normal 81.0-99.0 [facility] Comment on above: Performed By: #### C BC, RETIC #### [facility] [address] [address] [address] Demetrio Kan MONO # 0.7 103/ul Normal 0.3-0.8 [facility] Comment on above: Performed By: #### C BC, RETIC #### [facility] [address] [place] [address] Dr. Demetrio Kan Monocytes/100 WBC (Bld) 8.7 % Normal 1.7-12.0 [facility] Comment on above: Performed By: #### C BC, RETIC #### [facility] [address] [place] [address] Dr. Demetrio Kan NEUT # 6.3 103/ul Normal 1.4-6.5 [facility] Comment on above: Performed By: #### C BC, RETIC #### [facility] [address] [place] [address] Dr. Demetrio Kan Neutrophils/100 WBC (Bld) 74.5 % Normal 43.0-75.0 [facility] Comment on above: Performed By: #### C BC, RETIC #### [facility] [address] [place] [address] Dr. Demetrio Kan Platelet mean volume (Bld) [Entitic vol] 9.6 fL Normal 9.5-13.5 [facility] Comment on above: Performed By: #### C BC, RETIC #### [facility] [address] [place] [address] Dr. Demetrio Kan PLT 275 103/ul Normal 150-450 [facility] Comment on above: Performed By: #### C BC, RETIC #### [facility] [address] [place] [address] Dr. Demetrio Kan RBC 4.06 106/ul Critically low 4.20-5.40 [facility] Comment on above: Performed By: #### C BC, RETIC #### [facility] [address] [place] [address] Dr. Demetrio Kan WBC 8.5 103/ul Normal 4.0-11.0 [facility] Comment on above: Performed By: #### C BC, RETIC #### [facility] [address] [place] [address] Dr. Demetrio Kan FERRITINon 01-11-2023 Ferritin [Mass/Vol] 323.0 ng/mL Critically high 8.0-252.0 [facility] Comment on above: Performed By: #### C MP, BNP, CMADM #### [facility] [address] [place] [address] Dr. Demetrio Kan IRON AND TIBCon 01-11-2023 % SATURATION 28.6 % Normal [facility] Comment on above: Performed By: #### C MP, BNP, CMADM #### [facility] [address] [place] [address] Dr. Demetrio Kan Iron [Mass/Vol] 79.0 ug/dL Normal 50.0-170.0 [facility] Comment on above: Performed By: #### C MP, BNP, CMADM #### [facility] [address] [place] [address] Dr. Demetrio Kan TIBC DIRECT 276.0 ug/dL Normal 250.0-450.0 [facility] Comment on above: Performed By: #### C MP, BNP, CMADM #### [facility] [address] [place] [address] Dr. Demetrio Kan RETICULOCYTEon 01-11-2023 RETIC 1.71 % Normal 0.60-3.10 [facility] Comment on above: Performed By: #### C BC, RETIC #### [facility] [address] [place] [address] Dr. Demetrio Kan VIT B12 AND FOLATEon 023 Cobalamin (Vitamin B12) [Mass/Vol] 771.0 pg/mL Normal 193.0-986.0 [facility] Comment on above: Performed By: #### P OCGLUC #### [facility] [address] [place] [address] Dr. Demetrio Kan FOLATE 10.00 ng/mL Normal 8.60-58.90 [facility] Comment on above: Performed By: #### P OCGLUC #### [facility] [address] [place] [address] Dr. Demetrio Kan CULTURE SPUTUMon 01-01-2023 CULTURE [...] Trimethoprim/Sulfame thoxazole <=20 S F Normal [facility] Comment on above: Performed By: #### S PUTCX ####[facility] [address] [place], [place] [address]Dr. Carolynejosé miguel Kan CBC W MANUAL DIFFon 01-01-20 23 ATYPICAL LYMPH # Normal [facility] Comment on above: Performed By: #### C JESSE ####[facility] [address] [place], [place] [address]Dr. Carolynejosé miguel Kan ATYPICAL LYMPH % Normal [facility] Comment on above: Performed By: #### C JESSE ####[facility] [address] [place], [place] [address]Dr. Carolynelan Kan BAND # 0.0 103/ul Normal 0.0-0.3 [facility] Comment on above: Performed By: #### C JESSE ####[facility] [address] [place], [place] [address]Dr. Carolynelan Kan BAND % 0 % Normal 0-5 [facility] Comment on above: Performed By: #### C JESSE ####[facility] [address] [address]Dr. Demetrio Kan BASOM # 0.00 103/ul Normal 0.00-0.10 [facility] Comment on above: Performed By: #### C BCMAN ####[facility] [address] [address]Dr. Demetrio Kan BASOM % 0.0 % Critically low 0.2-2.0 [facility] Comment on above: Performed By: #### C BCMAN ####[facility] [address] [address]Dr. Demetrio Kan BLAST # Normal [facility] Comment on above: Performed By: #### C BCMAN ####[facility] [address] [place], [place] [address]Dr. Demetrio Kan BLAST % Normal [facility] Comment on above: Performed By: #### C BCTEDDY ####[facility] [address] [place], [place] [address]Dr. Demetrio Kan CORRECTED WBC Normal 4.0-11.0 [facility] Comment on above: Performed By: #### C BCMAN ####[facility] [address] [place], [place] [address]Dr. Demetrio Kan EOS # 0.00 103/ul Normal 0.00-0.70 [facility] Comment on above: Performed By: #### C BCMAN ####[facility] [address] [place], [place] [address]Dr. Demetrio Kan EOS% 0.0 % Critically low 0.9-7.0 [facility] Comment on above: Performed By: #### C BCMAN ####[facility] [address] [place], [place] [address]Dr. Demetrio Kan HCT 32.1 % Critically low 36.0-48.0 [facility] Comment on above: Performed By: #### C BCMAN ####[facility] [address] [place], [place] [address]Dr. Demetrio Kan HGB 10.4 g/dl Critically low 12.0-16.0 [facility] Comment on above: Performed By: #### C JESSE ####[facility] [address] [place], [place] [address]Ns. Demetrio Kan LYMPHM # 0.46 103/ul Critically low 1.20-3.80 [facility] Comment on above: Performed By: #### C JESSE ####[facility] [address] [address]Dr. Demetrio Kan LYMPHM% 3.0 % Critically low 20.5-60.0 [facility] Comment on above: Performed By: #### C JESSE ####[facility] [address] [address]Dr. Demetrio Kan MCH 30.1 pg Normal 26.7-34.0 [facility] Comment on above: Performed By: #### Chantel MOLINA ####[facility] [address] [id number]. Demetrio Kan MCHC 32.4 g/dl Normal 29.9-35.2 [facility] Comment on above: Performed By: #### Chantel MOLINA ####[facility] [address] [address]Dr. Demetrio Kan MCV 93.0 fL Normal 81.0-99.0 [facility] Comment on above: Performed By: #### Chantel MOLINA ####[facility] [address] [id number]. Demetrio Kan METAMYELOCYTE # Normal [facility] Comment on above: Performed By: #### Chantel MOLINA ####[facility] [address] [id number]. Demetrio Kan METAMYELOCYTE % Normal [facility] Comment on above: Performed By: #### C JESSE ####[facility] [address] [id number]. Demetrio Kan MONOM# 0.15 103/ul Critically low 0.30-0.80 [facility] Comment on above: Performed By: #### Chantel MOLINA ####[facility] [address] [address]Dr. Demetrio Kan MONOM% 1.0 % Critically low 1.7-12.0 [facility] Comment on above: Performed By: #### C JESSE ####[facility] [address] [address]Dr. Demetrio Kan MPV 9.7 fL Normal 9.5-13.5 [facility] Comment on above: Performed By: #### C JESSE ####[facility] [address] [id number]. Demetrio Kan MYELOCYTE # Normal [facility] Comment on above: Performed By: #### C JESSE ####[facility] [address] [id number]. Demetrio Kan MYELOCYTE % Normal [facility] Comment on above: Performed By: #### C JESSE ####[facility] [address] [id number]. Demetrio Kan NRBC Normal [facility] Comment on above: Performed By: #### C JESSE ####[facility] [address] [id number]. Demetrio Kan PLT 249 103/ul Normal 150-450 [facility] Comment on above: Performed By: #### C JESSE ####[facility] [address] [id number]. Demetrio Kan RBC 3.45 106/ul Critically low 4.20-5.40 [facility] Comment on above: Performed By: #### C JESSE ####[facility] [address] [id number]. Demetrio Kan RDW 14.6 % Normal 11.0-15.0 [facility] Comment on above: Performed By: #### C JESSE ####[facility] [address] [id number]. Demetrio Kan SEG # 14.59 103/ul Critically high 1.40-6.50 [facility] Comment on above: Performed By: #### C JESSE ####[facility] [address] [address]Dr. Demetrio Kan SEG % 96.0 % Critically high 43.0-75.0 [facility] Comment on above: Performed By: #### C BCMAN ####[facility] [address] [place], [place] [address]TqDr. Demetrio Kan WBC 15.2 103/ul Critically high 4.0-11.0 [facility] Comment on above: Performed By: #### C BCMAN ####[facility] [address] [place], [place] [address]EzPham Kan POINT OF CARE GLUCOSEon 03-3 Glucose [Mass/Vol] 294 mg/dL Critically high 74-106 [facility] Comment on above: Performed By: #### C MP, BNP, CMADM #### [facility] [address] [address] [address] Demetrio Kan Glucose [Mass/Vol] 252 mg/dL Critically high 74-106 [facility] Comment on above: Performed By: #### P OCGLUC #### [facility] [address] [address] [address] Demetrio Kan PROF 14(COMP METB)on 023 Albumin [Mass/Vol] 1.8 g/dL Critically low 3.4-5.0 [facility] Comment on above: Performed By: #### C MP, BNP, CMADM #### [facility] [address] [address] [address] Demetrio Kan Albumin/Globulin [Mass ratio] 0.5 {ratio} Normal [facility] Comment on above: Performed By: #### C MP, BNP, CMADM #### [facility] [address] [address] [address] Demetrio Kan ALP [Catalytic activity/Vol] 101 U/L Normal 46-116 [facility] Comment on above: Performed By: #### C MP, BNP, CMADM #### [facility] [address] [address] [address] Demetrio Kan ALT [Catalytic activity/Vol] 15 U/L Normal 14-59 [facility] Comment on above: Performed By: #### C MP, BNP, CMADM #### [facility] [address] [address] [address] Demetrio Kan Anion gap [Moles/Vol] 9.7 mmol/L Normal [facility] Comment on above: Performed By: #### C MP, BNP, CMADM #### [facility] [address] [address] [address] Demetrio Kan AST [Catalytic activity/Vol] 13 U/L Critically low 15-37 [facility] Comment on above: Performed By: #### C MP, BNP, CMADM #### [facility] [address] [address] [address] Demetrio Kan Bilirubin [Mass/Vol] 0.2 mg/dL Normal 0.2-1.0 [facility] Comment on above: Performed By: #### C MP, BNP, CMADM #### [facility] [address] [address] [address] Demetrio Kan Calcium [Mass/Vol] 9.0 mg/dL Normal 8.5-10.1 [facility] Comment on above: Performed By: #### C MP, BNP, CMADM #### [facility] [address] [address] [address] Demetrio Kan Chloride [Moles/Vol] 105 mmol/L Normal 98-107 [facility] Comment on above: Performed By: #### C MP, BNP, CMADM #### [facility] [address] [address] [address] Demetrio Kan CO2 [Moles/Vol] 27.8 mmol/L Normal 21.0-32.0 [facility] Comment on above: Performed By: #### C MP, BNP, CMADM #### [facility] [address] [place] [address] Dr. Demetrio Kan Creatinine [Mass/Vol] 0.82 mg/dL Normal 0.55-1.02 [facility] Comment on above: Performed By: #### C MP, BNP, CMADM #### [facility] [address] [address] [address] Demetrio Kan EGFR-AF ALBANIAN >60 Normal >=60 [facility] Comment on above: Performed By: #### C MP, BNP, CMADM #### [facility] [address] [place] [address] Dr. Demetrio Kan EGFR-NON AF ALBANIAN >60 Normal >=60 [facility] Comment on above: Performed By: #### C MP, BNP, CMADM #### [facility] [address] [place] [address] Dr. Demetrio Kan Globulin (S) [Mass/Vol] 3.8 g/dL Normal [facility] Comment on above: Performed By: #### C MP, BNP, CMADM #### [facility] [address] [place] [address] Dr. Demetrio Kan Glucose [Mass/Vol] 268 mg/dL Critically high 74-106 [facility] Comment on above: Performed By: #### C MP, BNP, CMADM #### [facility] [address] [place] [address] Dr. Demetrio Kan Potassium [Moles/Vol] 4.5 mmol/L Normal 3.5-5.1 [facility] Comment on above: Performed By: #### C MP, BNP, CMADM #### [facility] [address] [place] [address] Dr. Demetrio Kan Protein [Mass/Vol] 5.6 g/dL Critically low 6.4-8.2 [facility] Comment on above: Performed By: #### C MP, BNP, CMADM #### [facility] [address] [place] [address] Dr. Demetrio Kan Sodium [Moles/Vol] 138 mmol/L Normal 136-145 [facility] Comment on above: Performed By: #### C MP, BNP, CMADM #### [facility] [address] [place] [address] Dr. Demetrio Kan Urea nitrogen [Mass/Vol] 30.0 mg/dL Critically high 7.0-18.0 [facility] Comment on above: Performed By: #### C MP, BNP, CMADM #### [facility] [address] [address] [address] Demetrio Kan Urea nitrogen/Creatinine [Mass ratio] 36.6 mg/mg Normal [facility] Comment on above: Performed By: #### C MP, BNP, CMADM #### [facility] [address] [address] [address] Demetrio Kan XR CHEST 1 Von 12-31-2022 XR CHEST 1 V EXAM: XR CHEST 1 V HISTORY: SHORTNESS OF BREATH COMPARISON: 12/29/2022. TECHNIQUE: Chest X-ray AP, 1 view. FINDINGS: Support devices: None. 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 Persistent bibasilar airspace opacities. Blunting of costophrenic angles likely represents airspace disease, trace/small effusions and be difficult to exclude. No evidence of pneumothorax. Heart and mediastinum: Stable contours compared to prior examination. Bones: No acute abnormality identified. IMPRESSION: Persistent bibasilar airspace disease/consolidatio ns. Electronically authenticated by: JOCY MUÑOZ Date: 2022-12-31 08:22 Normal [facility] BLOOD GASES BTYon 12-30-2022 02 MODE NASAL CANNULA Normal [facility] Comment on above: Performed By: #### A BG ####[facility] [address] [address]DrPham Kan ALLENS TEST Positive Normal [facility] Comment on above: Performed By: #### A BG ####[facility] [address] [address]Dr. Demetrio Kan Base excess Calc (Bld) [Moles/Vol] 6.0 mmol/L Critically high -2.0-2.0 [facility] Comment on above: Performed By: #### A BG ####[facility] [address] [address]DrPham Kan BIPAP PRESSURE Normal [facility] Comment on above: Performed By: #### A BG ####[facility] [address] [address]DrPham Kan CPAP Normal [facility] Comment on above: Performed By: #### A BG ####[facility] [address] [address]Dr. Demetrio Kan FIO2 Normal [facility] Comment on above: Performed By: #### A BG ####[facility] [address] [address]Dr. Demetrio Kan HCO3 (Bld) [Moles/Vol] 28.7 mmol/L Critically high 22.0-26.0 [facility] Comment on above: Performed By: #### A BG ####[facility] [address] [place], [place] [address]Dr. Demetrio Kan LPM 6 Normal [facility] Comment on above: Performed By: #### A BG ####[facility] [address] [place], [place] [address]Dr. Demetrio Kan MINUTE VOLUME Normal [facility] Comment on above: Performed By: #### A BG ####[facility] [address] [place], [place] [address]Dr. Demetrio Kan Oxygen (Bld) [Partial pressure] 102.0 mm[Hg] Critically high 80.0-100.0 [facility] Comment on above: Performed By: #### A BG ####[facility] [address] [place], [place] [address]Dr. Demetrio Kan Oxygen saturation in Blood 99.1 % Normal 95.0-100.0 [facility] Comment on above: Performed By: #### A BG ####[facility] [address] [place], [place] [address]Dr. Demetrio Kan PCO2 34.5 mmHg Critically low 35.0-45.0 [facility] Comment on above: Performed By: #### A BG ####[facility] [address] [place], [place] [address]Dr. Demetrio Kan PEEP Normal [facility] Comment on above: Performed By: #### A BG ####[facility] [address] [place], [place] [address]Dr. Demetrio Kan pH (Bld) 7.529 [pH] Critically high 7.350-7.450 [facility] Comment on above: Result Comment: Prev iously reported as: 7.520 On 12/30/2022 07:13 By LM4 Performed By: #### A BG ####[facility] [address] [address]Dr. Demetrio Kan PIP [facility] Comment on above: Performed By: #### A BG ####[facility] [address] [place] [address]Dr. Demetrio Kan PS [facility] Comment on above: Performed By: #### A BG ####[facility] Kvlyzfgcvq75[address] [place] [address]Dr. Demetrio Kan PUNCTURE SITE RR Normal [facility] Comment on above: Performed By: #### A BG ####[facility] Fljfbvaoiw[address] [place], [place] [address]Dr. Demetrio Kan RATE [facility] Comment on above: Performed By: #### A BG ####[facility] Sskbdqmrry[address] [place], [place] [address]Dr. Demetrio Kan VENT MODE [facility] Comment on above: Performed By: #### A BG ####[facility] Idtufuaktv[address] [place], [place] [address]Dr. Demetrio Kan [place] [facility] Comment on above: Performed By: #### A BG ####[facility] Plmqyuykjm[address] [place], [place] [address]Dr. Demetrio Kan CBC W MANUAL DIFFon 12-31-19 23 ATYPICAL LYMPH # Normal [facility] Comment on above: Performed By: #### C BCMAN ####[facility] [address]pfypropti[address] [place] [address]Dr. Demetrio Kan ATYPICAL LYMPH % Normal [facility] Comment on above: Performed By: #### C BCMAN ####[facility] [address]gkxtsgug[address] [place] [address]Dr. Demetrio Kan BAND # 0.0 103/ul Normal 0.0-0.3 [facility] Comment on above: Performed By: #### C BCMAN ####[facility] Oneaoxxqzc4[address] [place] [id number]. Demetrio Kan BAND % 0 % Normal 0-5 [facility] Comment on above: Performed By: #### C BCMAN ####[facility] Tqzvtfuqwi09[address] [place] [id number]. Demetrio Kan BASOM # 0.00 103/ul Normal 0.00-0.10 [facility] Comment on above: Performed By: #### C BCMAN ####[facility] Pgirqfgtnj33[address] [place] [address]Dr. Yijosé miguel Kan BASOM % 0.0 % Critically low 0.2-2.0 The [facility] Comment on above: Performed By: #### C BCTEDDY ####[facility] Jujgoldnlu[address] [place] [address]Dr. Yijosé miguel Kan BLAST # Normal [facility] Comment on above: Performed By: #### C BCTEDDY ####[facility] Vobwrkaryk[address] [place], [place] [address]Dr. Yijosé miguel Kan BLAST % Normal [facility] Comment on above: Performed By: #### C BCTEDDY ####[facility] Wdtepkwryt[address] [place], [place] [address]Dr. Demetrio Kan CORRECTED WBC Normal 4.0-11.0 [facility] Comment on above: Performed By: #### C BCTEDDY ####[facility] Srjhtqgahp[address] [place] [address]Dr. Yijosé miguel Kan EOS # 0.00 103/ul Normal 0.00-0.70 [facility] Comment on above: Performed By: #### C BCTEDDY ####[facility] Kenecbfbob[address] [place], [place] [address]Dr. Demetrio Kan EOS% 0.0 % Critically low 0.9-7.0 The [facility] Comment on above: Performed By: #### C BCTEDDY ####[facility] Iwuovfdkcj8[address] [place], [place] [address]Dr. Demetrio Kan HCT 30.2 % Critically low 36.0-48.0 The [facility] Comment on above: Performed By: #### C JESSE ####[facility] Auwrmyplyu09[address] [place], [place] [address]Xn. Demetrio Kan HGB 9.9 g/dl Critically low 12.0-16.0 [facility] Comment on above: Performed By: #### C JESSE ####[facility] Hqtikuwrsq6390 [place], [place] [address]Sz. Demetrio Kan LYMPHM # 0.14 103/ul Critically low 1.20-3.80 [facility] Comment on above: Performed By: #### C JESSE ####[facility] Rdyrkagvac5918 [place], [place] [address]Xd. Demetrio Kan LYMPHM% 1.0 % Critically low 20.5-60.0 [facility] Comment on above: Performed By: #### C JESSE ####[facility] Beejchhvco6[address] [place] [address]Dr. Demetrio Kan MCH 30.1 pg Normal 26.7-34.0 [facility] Comment on above: Performed By: #### C JESSE ####[facility] Kgnacwghhi5394 [place] [address]Dr. Demetrio Kan MCHC 32.8 g/dl Normal 29.9-35.2 [facility] Comment on above: Performed By: #### C JESSE ####[facility] Jqtivyzvvi19[address] [place] [address]Dr. Demetrio Kan MCV 91.8 fL Normal 81.0-99.0 [facility] Comment on above: Performed By: #### C JESSE ####[facility] Wypstkhxbn3590 [place], [place] [address]Po. Demetrio Kan METAMYELOCYTE # Normal [facility] Comment on above: Performed By: #### C JESSE ####[facility] Glivsumdii1293 [place], [place] [address]Uw. Demetrio Kan METAMYELOCYTE % Normal [facility] Comment on above: Performed By: #### C JESSE ####[facility] Uxjzrxzupx6134 [place] [address]Dr. Demetrio Kan MONOM# 0.00 103/ul Critically low 0.30-0.80 [facility] Comment on above: Performed By: #### C JESSE ####[facility] Yukjynbaup3913 [place] [address]Dr. Demetrio Kan MONOM% 0.0 % Critically low 1.7-12.0 The [facility] Comment on above: Performed By: #### C JESSE ####[facility] Szuragvogw8826 [place] [address]Dr. Demetrio Kan MPV 9.9 fL Normal 9.5-13.5 [facility] Comment on above: Performed By: #### C JESSE ####[facility] Drrybytvch[address] [place], [place] [address]Dr. Demetrio Kan MYELOCYTE # Normal [facility] Comment on above: Performed By: #### C JESSE ####[facility] Cmhsjgtseb[address] [place], [place] [address]Dr. Demetrio Kan MYELOCYTE % Normal [facility] Comment on above: Performed By: #### C JESSE ####[facility] Fxsgmzqxri[address] [place], [place] [address]Dr. Demetrio Kan NRBC Normal [facility] Comment on above: Performed By: #### C JESSE ####[facility] Gbsvoxrwni0560 [place] [address]Dr. Demetrio Kan PLT 200 103/ul Normal 150-450 [facility] Comment on above: Performed By: #### C JESSE ####[facility] Tohfxabein[address] [place] [address]Dr. Demetrio Kan RBC 3.29 106/ul Critically low 4.20-5.40 [facility] Comment on above: Performed By: #### C JESSE ####[facility] Czmgktivbk95[address] [place] [address]Dr. Demetrio Kan RDW 14.3 % Normal 11.0-15.0 [facility] Comment on above: Performed By: #### C JESSE ####[facility] Ltfzkyscpp2744 [place], [place] [address]LaPham Kan SEG # 13.76 103/ul Critically high 1.40-6.50 [facility] Comment on above: Performed By: #### C BCMAN ####[facility] Twdlycidre6672 [place], [place] [address]RfDr. Demetrio Kan SEG % 99.0 % Critically high 43.0-75.0 [facility] Comment on above: Performed By: #### C JESSE ####[facility] Wbbsoncrdl9814 [place], [place] [address]KrPham Kan WBC 13.9 103/ul Critically high 4.0-11.0 [facility] Comment on above: Performed By: #### C JESSE ####[facility] Pvzruxguje2964 [place], [place] [address]CuDr. Demetrio Kan POINT OF CARE GLUCOSEon 12-03 Glucose [Mass/Vol] 281 mg/dL Critically high 74-106 [facility] Comment on above: Performed By: #### P OCGLUC #### [facility] [address] [place] [address] [address] Demetrio Kan Glucose [Mass/Vol] 219 mg/dL Critically high 74-106 [facility] Comment on above: Performed By: #### C MP, BNP, CMADM #### [facility] [address] [place] [address] [address] Demetrio Kan Glucose [Mass/Vol] 333 mg/dL Critically high 74-106 [facility] Comment on above: Performed By: #### P OCGLUC #### [facility] [address] [place] [address] [address] Demetrio Kan Glucose [Mass/Vol] 265 mg/dL Critically high 74-106 [facility] Comment on above: Performed By: #### C MP, BNP, CMADM #### [facility] [address] [place] [address] [address] Demetrio Kan PROF 14(COMP METB)on 023 Albumin [Mass/Vol] 1.7 g/dL Critically low 3.4-5.0 [facility] Comment on above: Performed By: #### C MP ####[facility] Hrtpbfkvyl7[address] [place] [address]Dr. Demetrio Lucius Albumin/Globulin [Mass ratio] 0.4 {ratio} Normal [facility] Comment on above: Performed By: #### C MP ####[facility] Aqsiwdnmku9[address] [place] [address]Dr. Demetrio Lucius ALP [Catalytic activity/Vol] 103 U/L Normal 46-116 [facility] Comment on above: Performed By: #### C MP ####[facility] Zjdzjvwpzr023[address] [place] [address]Dr. Demetrio Lucius ALT [Catalytic activity/Vol] 11 U/L Critically low 14-59 [facility] Comment on above: Performed By: #### C MP ####[facility] Bklcphrvef[address] [place], [place] [address]Dr. Carolynejosé miguel Lcuius Anion gap [Moles/Vol] 8.8 mmol/L Normal [facility] Comment on above: Performed By: #### C MP ####[facility] Sxgfjsicim[address] [place], [place] [address]Dr. Demetrio Kan AST [Catalytic activity/Vol] 10 U/L Critically low 15-37 [facility] Comment on above: Performed By: #### C MP ####[facility] Bzyvobagql[address] [place], [place] [address]Dr. Demetrio Kan Bilirubin [Mass/Vol] 0.3 mg/dL Normal 0.2-1.0 [facility] Comment on above: Performed By: #### C MP ####[facility] Gfjrlgcjsl[address] [place], [place] [address]Dr. Demetrio Lucius Calcium [Mass/Vol] 8.8 mg/dL Normal 8.5-10.1 [facility] Comment on above: Performed By: #### C MP ####[facility] Odygeyaumv14[address] [place] [address]Dr. Demetrio Kan Chloride [Moles/Vol] 103 mmol/L Normal 98-107 [facility] Comment on above: Performed By: #### C MP ####[facility] Kwmxdhyjlt3515 [place] [id number]. Demetrio Kan CO2 [Moles/Vol] 30.9 mmol/L Normal 21.0-32.0 [facility] Comment on above: Performed By: #### C MP ####[facility] Ezgmeuaadq20[address] [place] [address]Dr. Demetrio Kan Creatinine [Mass/Vol] 0.69 mg/dL Normal 0.55-1.02 [facility] Comment on above: Performed By: #### C MP ####[facility] Asyvxtlsqz10[address] [place] [address]Dr. Demetrio Kan EGFR-AF ALBANIAN >60 Normal >=60 [facility] Comment on above: Performed By: #### C MP ####[facility] Ebgohgqrbt[address] [place], [place] [address]Dr. Demetrio Kan EGFR-NON AF ALBANIAN >60 Normal >=60 [facility] Comment on above: Performed By: #### C MP ####[facility] Jfnzoqofjj[address] [place], [place] [address]Dr. Demetrio Kan Globulin (S) [Mass/Vol] 3.9 g/dL Normal [facility] Comment on above: Performed By: #### C MP ####[facility] Vpybxyabsn[address] [place], [place] [address]Dr. Demetrio Kan Glucose [Mass/Vol] 216 mg/dL Critically high 74-106 [facility] Comment on above: Performed By: #### C MP ####[facility] Xwdyimysrl[address] [place], [place] [address]Dr. Demetrio Kan Potassium [Moles/Vol] 2.7 mmol/L Critically low 3.5-5.1 [facility] Comment on above: Performed By: #### C MP ####[facility] Qdjiaemszr[address] [place], [place] [address]Dr. Demetrio Kan Protein [Mass/Vol] 5.6 g/dL Critically low 6.4-8.2 [facility] Comment on above: Performed By: #### C MP ####[facility] Lhukyuqawm8449 [place] [address]DrPham Kan Sodium [Moles/Vol] 140 mmol/L Normal 136-145 [facility] Comment on above: Performed By: #### C MP ####[facility] Oujdvqmtfc2523 [place] [address]Dr. Demetrio Kan Urea nitrogen [Mass/Vol] 16.0 mg/dL Normal 7.0-18.0 [facility] Comment on above: Performed By: #### C MP ####[facility] Fxfkyeeobm38[address] [place] [address]Dr. Demetrio Kan Urea nitrogen/Creatinine [Mass ratio] 23.2 mg/mg Normal [facility] Comment on above: Performed By: #### C MP ####[facility] Rnihuzzzhp4099 [place] [address]DrPham Kan BNPon 12-29-2022 Natriuretic peptide B (Bld) [Mass/Vol] 824.0 pg/mL Normal <=900.0 [facility] Comment on above: Performed By: #### C MP, BNP, CMADM #### [facility] [address] [place] [address] [address] Demetrio Kan CARDIAC IGNACIA ADMITon 023 CK [Catalytic activity/Vol] 43 U/L Normal 26-192 [facility] Comment on above: Performed By: #### C MP, BNP, CMADM #### [facility] [address] [place] [address] [address] Demetrio Kan CK.MB [Mass/Vol] 0.91 ng/mL Normal <=3.60 [facility] Comment on above: Performed By: #### C MP, BNP, CMADM #### [facility] [address] [place] [address] [address] Demetrio Kan HSTROP 18.1 pg/mL Normal 4.0-51.3 [facility] Comment on above: Result Comment: CUT- OFF POINTS HAVE BEEN ESTABLISHED BASED ON THE FOURTH UNIVERSAL DEFINITIONS OF MYOCARDIAL INFARCTION. THE UPPER REFERENCE LIMIT (URL) OF TROPONIN, DEFINED THE 99TH PERCENTILE OF cTnI DISTRIBUTION IN A REFERENCE POPULATION, HAS BEEN CONFIRMED THE DECISION THRESHOLD FOR CT DIAGNOSIS. Performed By: #### C MP, BNP, CMADM #### [facility] [address] [place] [address] [address] Demetrio Kan KAVEH 63 ng/mL Normal 9-82 [facility] Comment on above: Performed By: #### C MP, BNP, CMADM #### [facility] [address] [place] [address] [address] Demetrio Kan CBC AUTO DIFFon 12-29-2022 BASO # 0.1 103/ul Normal 0.0-0.1 [facility] Comment on above: Performed By: #### C BC ####[facility] Lwccnhuwsr65[address] [place] [address]DrPham Kan Basophils/100 WBC (Bld) 0.4 % Normal 0.2-2.0 [facility] Comment on above: Performed By: #### C BC ####[facility] [address]ev[address]ultw[address] [place], [place] [address]DrPham Kan EO # 0.1 103/ul Normal 0.0-0.7 [facility] Comment on above: Performed By: #### C BC ####[facility] Oxbdkagfdc3704 [place] [address]DrPham Kan Eosinophils/100 WBC (Bld) 0.4 % Critically low 0.9-7.0 [facility] Comment on above: Performed By: #### C BC ####[facility] Aqfonycgiq0116 [place] [address]DrPham Kan Erythrocyte distribution width (RBC) [Ratio] 14.1 % Normal 11.0-15.0 [facility] Comment on above: Performed By: #### C BC ####[facility] Gpayniwwxm8143 [place] [address]DrPham Kan Hematocrit (Bld) [Volume fraction] 37.6 % Normal 36.0-48.0 [facility] Comment on above: Performed By: #### C BC ####[facility] Ygiafgg[address] [place], [place] [address]DrPham Kan Hemoglobin (Bld) [Mass/Vol] 12.4 g/dL Normal 12.0-16.0 [facility] Comment on above: Performed By: #### C BC ####[facility] Pjffcpinxf2664 [place] [address]DrPham Kan IG # 0.12 10e3/ul Critically high 0.00-0.03 [facility] Comment on above: Performed By: #### C BC ####[facility] Viuitaoorr8426 [place] [address]DrPham Kan IG % 0.7 % Critically high 0.0-0.5 [facility] Comment on above: Performed By: #### C BC ####[facility] [address]dxjhgmmzp[address] [place], [place] [address]DrPham Kan LYMPH # 0.4 103/ul Critically low 1.2-3.8 [facility] Comment on above: Performed By: #### C BC ####[facility] Nxrkljhbdg7080 [place] [address]DrPham Kan Lymphocytes/100 WBC (Bld) 2.4 % Critically low 20.5-60.0 [facility] Comment on above: Performed By: #### C BC ####[facility] Iaizagsepf1233 [place] [address]DrPham Kan MANUAL DIFF REQ NO Normal [facility] Comment on above: Performed By: #### C BC ####[facility] Biaemjlbll35[address] [place] [address]DrPham Kan MCH (RBC) [Entitic mass] 30.5 pg Normal 26.7-34.0 [facility] Comment on above: Performed By: #### C BC ####[facility] Cxgcohdsur5552 [place] [address]DrPham Kan MCHC (RBC) [Mass/Vol] 33.0 g/dL Normal 29.9-35.2 [facility] Comment on above: Performed By: #### C BC ####[facility] Hevqcgbqih2995 [place] [address]DrPham Kan MCV (RBC) [Entitic vol] 92.6 fL Normal 81.0-99.0 [facility] Comment on above: Performed By: #### C BC ####[facility] Wneiqtdgcn0642 [place] [address]DrPham Kan MONO # 1.0 103/ul Critically high 0.3-0.8 [facility] Comment on above: Performed By: #### C BC ####[facility] Umhujuysmz7982 [place] [address]DrPham Kan Monocytes/100 WBC (Bld) 5.6 % Normal 1.7-12.0 [facility] Comment on above: Performed By: #### C BC ####[facility] Fcumaawwdo[address] [place], [place] [address]DrPham Kan NEUT # 16.1 103/ul Critically high 1.4-6.5 [facility] Comment on above: Performed By: #### C BC ####[facility] Brsdtuxdzv[address] [place], [place] [address]DrPham Kan Neutrophils/100 WBC (Bld) 90.5 % Critically high 43.0-75.0 [facility] Comment on above: Performed By: #### C BC ####[facility] Jdrggvtmnp[address] [place], [place] [address]DrPham Kan Platelet mean volume (Bld) [Entitic vol] 9.5 fL Normal 9.5-13.5 [facility] Comment on above: Performed By: #### C BC ####[facility] [address]unk[address]ovm[address] [place], [place] [address]DrPham Kan PLT 245 103/ul Normal 150-450 [facility] Comment on above: Performed By: #### C BC ####[facility] Izvuuaejyb[address] [place], [place] [address]DrPham Kan RBC 4.06 106/ul Critically low 4.20-5.40 [facility] Comment on above: Performed By: #### C BC ####[facility] Kafkdqiwlm[address] [place], [place] [address]DrPham Kan WBC 17.7 103/ul Critically high 4.0-11.0 [facility] Comment on above: Performed By: #### C BC ####[facility] Trumrrtzcn[address] [place] [address]Dr. Demetrio Kan CBC W MANUAL DIFFon 12-30-19 23 ANISOCYTOSIS 1+ Normal [facility] Comment on above: Performed By: #### P OCGLUC #### [facility] [address] [place] [address] [address] Demetrio Kan ATYPICAL LYMPH # Normal [facility] Comment on above: Performed By: #### P OCGLUC #### [facility] [address] [place] [address] [address] Demetrio Kan ATYPICAL LYMPH % Normal [facility] Comment on above: Performed By: #### P OCGLUC #### [facility] [address] [place] [address] [address] Demetrio Kan BAND # 0.7 103/ul Critically high 0.0-0.3 [facility] Comment on above: Performed By: #### P OCGLUC #### [facility] [address] [place] [address] [address] Demetrio Kan BAND % 3 % Normal 0-5 [facility] Comment on above: Performed By: #### P OCGLUC #### [facility] [address] [place] [address] [address] Demetrio Kan BASOM # 0.00 103/ul Normal 0.00-0.10 [facility] Comment on above: Performed By: #### P OCGLUC #### [facility] [address] [place] [address] [address] Demetrio Kan BASOM % 0.0 % Critically low 0.2-2.0 [facility] Comment on above: Performed By: #### P OCGLUC #### [facility] [address] [place] [address] [address] Demetrio Kan BLAST # Normal [facility] Comment on above: Performed By: #### P OCGLUC #### [facility] [address] [place] [address] [address] Demetrio Kan BLAST % Normal [facility] Comment on above: Performed By: #### P OCGLUC #### [facility] [address] [place] [address] [address] Demetrio Kan CORRECTED WBC Normal 4.0-11.0 [facility] Comment on above: Performed By: #### P OCGLUC #### [facility] [address] [place] [address] [address] Demetrio Kan EOS # 0.00 103/ul Normal 0.00-0.70 [facility] Comment on above: Performed By: #### P OCGLUC #### [facility] [address] [place] [address] [address] Demetrio Kan EOS% 0.0 % Critically low 0.9-7.0 [facility] Comment on above: Performed By: #### P OCGLUC #### [facility] [address] [place] [address] [address] Demetrio Kan HCT 33.1 % Critically low 36.0-48.0 [facility] Comment on above: Performed By: #### P OCGLUC #### [facility] [address] [place] [address] [address] Demetrio Kan HGB 11.1 g/dl Critically low 12.0-16.0 [facility] Comment on above: Performed By: #### P OCGLUC #### [facility] [address] [place] [address] [address] Demetrio Kan LYMPHM # 0.95 103/ul Critically low 1.20-3.80 [facility] Comment on above: Performed By: #### P OCGLUC #### [facility] [address] [place] [address] [address] Demetrio Kan LYMPHM% 4.0 % Critically low 20.5-60.0 [facility] Comment on above: Performed By: #### P OCGLUC #### [facility] [address] [place] [address] [address] Demetrio Kan MCH 30.8 pg Normal 26.7-34.0 [facility] Comment on above: Performed By: #### P OCGLUC #### [facility] [address] [place] [address] [address] Demetrio Kan MCHC 33.5 g/dl Normal 29.9-35.2 [facility] Comment on above: Performed By: #### P OCGLUC #### [facility] [address] [place] [address] Dr. Demetrio Kan MCV 91.9 fL Normal 81.0-99.0 [facility] Comment on above: Performed By: #### P OCGLUC #### [facility] [address] [place] [address] [address] Demetrio Kan METAMYELOCYTE # Normal [facility] Comment on above: Performed By: #### P OCGLUC #### [facility] [address] [place] [address] Dr. Demetrio Kan METAMYELOCYTE % Normal [facility] Comment on above: Performed By: #### P OCGLUC #### [facility] [address] [place] [address] Dr. Demetrio Kan MONOM# 1.42 103/ul Critically high 0.30-0.80 [facility] Comment on above: Performed By: #### P OCGLUC #### [facility] [address] [place] [address] Dr. Demetrio Kan MONOM% 6.0 % Normal 1.7-12.0 [facility] Comment on above: Performed By: #### P OCGLUC #### [facility] [address] [place] [address] Dr. Demetrio Kan MPV 9.7 fL Normal 9.5-13.5 [facility] Comment on above: Performed By: #### P OCGLUC #### [facility] [address] [place] [address] Dr. Demetrio Kan MYELOCYTE # Normal [facility] Comment on above: Performed By: #### P OCGLUC #### [facility] [address] [place] [address] Dr. Demetrio Kan MYELOCYTE % Normal [facility] Comment on above: Performed By: #### P OCGLUC #### [facility] [address] [place] [address] Dr. Demetrio Kan NRBC Normal [facility] Comment on above: Performed By: #### P OCGLUC #### [facility] [address] [place] [address] [address] Demetrio Kan PLT 235 103/ul Normal 150-450 [facility] Comment on above: Performed By: #### P OCGLUC #### [facility] [address] [place] [address] [address] Demetrio Kan RBC 3.60 106/ul Critically low 4.20-5.40 [facility] Comment on above: Performed By: #### P OCGLUC #### [facility] [address] [place] [address] [address] Demetrio Kan RDW 14.2 % Normal 11.0-15.0 [facility] Comment on above: Performed By: #### P OCGLUC #### [facility] [address] [place] [address] [address] Demetrio Kan SEG # 20.62 103/ul Critically high 1.40-6.50 [facility] Comment on above: Performed By: #### P OCGLUC #### [facility] [address] [place] [address] [address] Demetrio Kan SEG % 87.0 % Critically high 43.0-75.0 [facility] Comment on above: Performed By: #### P OCGLUC #### [facility] [address] [place] [address] [address] Demetrio Kan WBC 23.7 103/ul Critically high 4.0-11.0 [facility] Comment on above: Performed By: #### P OCGLUC #### [facility] [address] [place] [address] [address] Demetrio Kan CTA CHEST WO W [...] the spine. UPPER ABDOMEN: Unremarkable. MEDIASTINUM AND RSOE: Mildly enlarged mediastinal lymph nodes are seen [...] ARMAND PATEL Date: 2022-12-29 03:05 Normal [facility] CULTURE BLOODon 12-29-2022 Microscopic examination of blood, culture Culture Observations: NO GROWTH AT 5 DAYS. Normal [facility] Comment on above: Performed By: #### B LDCX2 ####[facility] [address] [place] [address]Dr. Demetrio Kan Performed By: #### B LDCX1 ####[facility] [address]fu[address] [place] [address]Dr. Demetrio Kan Covid-19 PCR (CVDTBH)on 12-02 SARS-CoV-2 (COVID-19) RNA BRUNO+probe Ql (Unsp spec) Not detected Normal NOT DETECTED [facility] Comment on above: Result Comment: When [...] for this test is supported by the [employer] Installer of Health and Human Service's declaration that [...] be used). Performed By: #### C VDTBH ####[facility] [address] [address]Dr. Demetrio Kan INFLUENZA A AND B AGon 12-29 INFLUANEGH SEE BELOW Normal [facility] Comment on above: Result Comment: Nega tive for Flu A protein angiten. Infection due to Flu A cannot be ruled out. Flu A angiten in the sample may be below the detection limit of the test. Performed By: #### I NFLUAB ####[facility] [address] [place], [place] [address]Dr. Demetrio Kan INFLUBNEGH SEE BELOW Normal [facility] Comment on above: Result Comment: Nega tive for Flu B protein antigen. Infection due to Flu B cannot be ruled out. Flu B antigen in the sample may be below the detection limit of the test. Performed By: #### I NFLUAB ####[facility] [address] [place], [place] [address]Dr. Demetrio Kan INFLUENZA A AG Negative Normal NEGATIVE SEE COMMENT [facility] Comment on above: Performed By: #### I NFLUAB ####[facility] [address] [place], [place] [address]Dr. Demetrio Kan INFLUENZA B AG Negative Normal NEGATIVE SEE COMMENT [facility] Comment on above: Performed By: #### I NFLUAB ####[facility] [address] [place], [place] [address]DrPham Kan LACTATE/LACTIC ACIDon 2022 Lactate [Moles/Vol] 1.7 mmol/L Normal 0.4-2.0 [facility] Comment on above: Performed By: #### L ACT #### [facility] [address] [place] [address] Dr. Demetrio Kan LIPID PROFILEon 12-29-2022 CHOL-HDL RATIO NORM SEE BELOW Normal [facility] Comment on above: Result Comment: 3.3 - 4.4 LOW RISK 4.4 - 7.1 AVERAGE RISK 7.1 - 11.0 MODERATE RISK >11.0 HIGH RISK Performed By: #### P OCGLUC #### [facility] [address] [address] [address] Demetrio Kan Cholesterol [Mass/Vol] 98 mg/dL Normal <=200 [facility] Comment on above: Performed By: #### P OCGLUC #### [facility] [address] [address] [address] Demetrio Kan Cholesterol in HDL [Mass/Vol] 32 mg/dL Critically low 40-60 [facility] Comment on above: Performed By: #### P OCGLUC #### [facility] [address] [address] [address] Demetrio Kan Cholesterol in LDL [Mass/Vol] 53.4 mg/dL Normal [facility] Comment on above: Performed By: #### P OCGLUC #### [facility] [address] [address] [address] Demetrio Kan Cholesterol.total/Ch olesterol in HDL [Mass ratio] 3.1 {ratio} Normal [facility] Comment on above: Performed By: #### P OCGLUC #### [facility] [address] [address] [address] Demetrio Kan HDL NORMAL > or = 60 mg/dl - LOW CARDIOVASCULAR RISK <40 mg/dl - HIGH CARDIOVASCULAR RISK Normal [facility] Comment on above: Performed By: #### P OCGLUC #### [facility] [address] [address] [address] Demetrio Kan LDL CALC NORMAL SEE BELOW Normal [facility] Comment on above: Result Comment: <100 mg/dl OPTIMAL 100 - 129 mg/dl NEAR OR ABOVE OPTIMAL 130 - 159 mg/dl BORDERLINE HIGH 160 - 189 mg/dl HIGH >190 mg/dl VERY HIGH Performed By: #### P OCGLUC #### [facility] [address] [address] [address] Demetrio Kan Triglyceride [Mass/Vol] 63 mg/dL Normal <=150 [facility] Comment on above: Performed By: #### P OCGLUC #### [facility] [address] [address] [address] Demetrio Kan VLDL CALC 12.6 mg/dL Normal [facility] Comment on above: Performed By: #### P OCGLUC #### [facility] [address] [address] [address] Demetrio Kan MAGNESIUMon 12-29-2022 Magnesium [Mass/Vol] 1.7 mg/dL Critically low 1.8-2.4 [facility] Comment on above: Performed By: #### P OCGLUC #### [facility] [address] [address] [address] Demetrio Kan POINT OF CARE GLUCOSEon 12-02 Glucose [Mass/Vol] 181 mg/dL Critically high 74-106 [facility] Comment on above: Performed By: #### P OCGLUC #### [facility] [address] [address] [address] Demetrio Kan Glucose [Mass/Vol] 283 mg/dL Critically high 74-106 [facility] Comment on above: Performed By: #### P OCGLUC ####[facility] [address] [address]Dr. Demetrio Kan Glucose [Mass/Vol] 237 mg/dL Critically high 74-106 [facility] Comment on above: Performed By: #### P OCGLUC ####[facility] [address] [address]Dr. Demetrio Kan Glucose [Mass/Vol] 144 mg/dL Critically high 74-106 [facility] Comment on above: Performed By: #### P OCGLUC ####[facility] [address] [address]Dr. Demetrio Kan PROF 14(COMP METB)on 023 Albumin [Mass/Vol] 2.2 g/dL Critically low 3.4-5.0 [facility] Comment on above: Performed By: #### C MP, BNP, CMADM #### [facility] [address] [address] [address] Demetrio Kan Albumin/Globulin [Mass ratio] 0.5 {ratio} Normal [facility] Comment on above: Performed By: #### C MP, BNP, CMADM #### [facility] [address] [place] [address] Dr. Demetrio Kan ALP [Catalytic activity/Vol] 128 U/L Critically high 46-116 [facility] Comment on above: Performed By: #### C MP, BNP, CMADM #### [facility] [address] [place] [address] Dr. Demetrio Kan ALT [Catalytic activity/Vol] 14 U/L Normal 14-59 [facility] Comment on above: Performed By: #### C MP, BNP, CMADM #### [facility] [address] [place] [address] Dr. Demetrio Kan Anion gap [Moles/Vol] 11.3 mmol/L Normal [facility] Comment on above: Performed By: #### C MP, BNP, CMADM #### [facility] [address] [place] [address] Dr. Demetrio Kan AST [Catalytic activity/Vol] 14 U/L Critically low 15-37 [facility] Comment on above: Performed By: #### C MP, BNP, CMADM #### [facility] [address] [place] [address] Dr. Demetrio Kan Bilirubin [Mass/Vol] 0.7 mg/dL Normal 0.2-1.0 [facility] Comment on above: Performed By: #### C MP, BNP, CMADM #### [facility] [address] [place] [address] Dr. Demetrio Kan Calcium [Mass/Vol] 9.2 mg/dL Normal 8.5-10.1 [facility] Comment on above: Performed By: #### C MP, BNP, CMADM #### [facility] [address] [place] [address] Dr. Demetrio Kan Chloride [Moles/Vol] 100 mmol/L Normal 98-107 [facility] Comment on above: Performed By: #### C MP, BNP, CMADM #### [facility] [address] [address] [address] Demetrio Kan CO2 [Moles/Vol] 31.6 mmol/L Normal 21.0-32.0 [facility] Comment on above: Performed By: #### C MP, BNP, CMADM #### [facility] [address] [address] [address] Demetrio Kan Creatinine [Mass/Vol] 0.75 mg/dL Normal 0.55-1.02 [facility] Comment on above: Performed By: #### C MP, BNP, CMADM #### [facility] [address] [address] [address] Demetrio Kan EGFR-AF ALBANIAN >60 Normal >=60 [facility] Comment on above: Performed By: #### C MP, BNP, CMADM #### [facility] [address] [address] [address] Demetrio Kan EGFR-NON AF ALBANIAN >60 Normal >=60 [facility] Comment on above: Performed By: #### C MP, BNP, CMADM #### [facility] [address] [address] [address] Demetrio Kan Globulin (S) [Mass/Vol] 4.4 g/dL Normal [facility] Comment on above: Performed By: #### C MP, BNP, CMADM #### [facility] [address] [address] [address] Demetrio Kan Glucose [Mass/Vol] 178 mg/dL Critically high 74-106 [facility] Comment on above: Performed By: #### C MP, BNP, CMADM #### [facility] [address] [address] [address] Demetrio Kan Potassium [Moles/Vol] 2.9 mmol/L Critically low 3.5-5.1 [facility] Comment on above: Performed By: #### C MP, BNP, CMADM #### [facility] [address] [address] [address] Demetrio Kan Protein [Mass/Vol] 6.6 g/dL Normal 6.4-8.2 [facility] Comment on above: Performed By: #### C MP, BNP, CMADM #### [facility] [address] [address] [address] Demetrio Kan Sodium [Moles/Vol] 140 mmol/L Normal 136-145 [facility] Comment on above: Performed By: #### C MP, BNP, CMADM #### [facility] [address] [address] [address] Demetrio Kan Urea nitrogen [Mass/Vol] 17.0 mg/dL Normal 7.0-18.0 [facility] Comment on above: Performed By: #### C MP, BNP, CMADM #### [facility] [address] [address] [address] Demetrio Kan Urea nitrogen/Creatinine [Mass ratio] 22.7 mg/mg Normal [facility] Comment on above: Performed By: #### C MP, BNP, CMADM #### [facility] [address] [address] [address] Demetrio Kan PROF CHEM 8 (BAS METB)on Anion gap [Moles/Vol] 10.0 mmol/L Normal [facility] Comment on above: Performed By: #### B MP ####[facility] [address] [address]Dr. Demetrio Kan Calcium [Mass/Vol] 8.9 mg/dL Normal 8.5-10.1 [facility] Comment on above: Performed By: #### B MP ####[facility] [address] [address]Dr. Demetrio Kan Chloride [Moles/Vol] 107 mmol/L Normal 98-107 [facility] Comment on above: Performed By: #### B MP ####[facility] [address] [address]Dr. Demetrio Kan CO2 [Moles/Vol] 31.4 mmol/L Normal 21.0-32.0 [facility] Comment on above: Performed By: #### B MP ####[facility] [address] [address]Dr. Demetrio Kan Creatinine [Mass/Vol] 0.73 mg/dL Normal 0.55-1.02 [facility] Comment on above: Performed By: #### B MP ####[facility] [address] [address]Dr. Demetrio Kan EGFR-AF ALBANIAN >60 Normal >=60 [facility] Comment on above: Performed By: #### B MP ####[facility] [address] [address]Dr. Demetrio Kan EGFR-NON AF ALBANIAN >60 Normal >=60 [facility] Comment on above: Performed By: #### B MP ####[facility] [address] [address]Dr. Demetrio Kan Glucose [Mass/Vol] 148 mg/dL Critically high 74-106 [facility] Comment on above: Performed By: #### B MP ####[facility] [address] [place], [place] [address]Dr. Demetrio Lucius Potassium [Moles/Vol] 3.4 mmol/L Critically low 3.5-5.1 [facility] Comment on above: Performed By: #### B MP ####[facility] [address] [place], [place] [address]Dr. Demetrio Kan Sodium [Moles/Vol] 145 mmol/L Normal 136-145 [facility] Comment on above: Performed By: #### B MP ####[facility] [address] [address]Dr. Demetrio Kan Urea nitrogen [Mass/Vol] 16.0 mg/dL Normal 7.0-18.0 [facility] Comment on above: Performed By: #### B MP ####[facility] [address] [place], [place] [address]Dr. Carolynejosé miguel Lucius Urea nitrogen/Creatinine [Mass ratio] 21.9 mg/mg Normal [facility] Comment on above: Performed By: #### B MP ####[facility] [address] [address]Dr. Demetrio Lucius PROTIMEon 12-29-2022 INR Coag (PPP) [Relative time] 0.99 {INR} Normal [facility] Comment on above: Performed By: #### P TT, PT ####[facility] [address] [address]Dr. Demetrio Kan INR GUIDELINES SEE BELOW Normal [facility] Comment on above: Result Comment: TRAVIS RED INR: 2.0 - 3.0 CONDITIONS NOT LISTED BELOW 2.5 - 3.5 FOR PROSTHETIC HEART VALVE REPLACEMENT 2.5 - 3.5 RECURRENT THROMBOSIS Performed By: #### P TT, PT ####[facility] [address] [address]DrPham Kan PT Coag (PPP) [Time] 10.5 s Normal 9.0-11.6 [facility] Comment on above: Performed By: #### P TT, PT ####[facility] [address] [address]Dr. Demetrio Kan PTTon 12-29-2022 aPTT Coag (Bld) [Time] 27.3 s Normal 22.3-36.2 [facility] Comment on above: Performed By: #### P TT, PT ####[facility] [address] [address]Dr. Demetrio Kan SPUTUM GRAM STAINon 12-30-19 COMMENTS Normal [facility] Comment on above: Performed By: #### P OCGLUC #### [facility] [address] [address] [address] Demetrio Kan DIPHTHEROIDS Normal [facility] Comment on above: Performed By: #### P OCGLUC #### [facility] [address] [address] [address] Demetrio Kan EPITHELIALS <25 Normal [facility] Comment on above: Performed By: #### P OCGLUC #### [facility] [address] [address] [address] Demetrio Kan FUNGAL ELEMENTS Normal [facility] Comment on above: Performed By: #### P OCGLUC #### [facility] [address] [address] [address] Demetrio Kan GRAM NEG BACILLI Normal [facility] Comment on above: Performed By: #### P OCGLUC #### [facility] [address] [place] [address] Dr. Demetrio Kan GRAM NEG DIPPLOCOCCI Normal [facility] Comment on above: Performed By: #### P OCGLUC #### [facility] [address] [place] [address] Dr. Demetrio Kna GRAM POS BACILLI FEW Normal [facility] Comment on above: Performed By: #### P OCGLUC #### [facility] [address] [place] [address] Dr. Demetrio Kan GRAM POSITIVE COCCI MODERATE Normal [facility] Comment on above: Performed By: #### P OCGLUC #### [facility] [address] [place] [address] Dr. Demetrio Kan WBC (Bld) [#/Vol] 10*3/uL Normal [facility] Comment on above: Performed By: #### P OCGLUC #### [facility] [address] [place] [address] Dr. Demetrio Kan SYMPTOMATIC COVID-19 ANTIGEN on 12-29-2022 EUA Statement SEE BELOW Normal [facility] Comment on above: Result Comment: This test [...] By: #### C MP, BNP, CMADM #### [facility] [address] [place] [address] Dr. Demetrio Kan SARS-CoV-2 (COVID-19) RNA BRUNO+probe Ql (Unsp spec) Negative Normal NEGATIVE [facility] Comment on above: Performed By: #### C MP, BNP, CMADM #### [facility] [address] [address] [address] Demetrio Kan TSHon 12-29-2022 TSH 0.370 uIU/mL Normal 0.358-3.740 [facility] Comment on above: Performed By: #### P OCGLUC #### [facility] [id number] Demetrio Kan XR CHEST 1 Von [...] by: GAIL SCHAEFER Date: 2022-12-28 23:[address] [facility] [address] LUNG CANCER SCREENINGon 0 11-17-2022 CT [...] by: JEAN MOONEY Date: 2022-11-17 14:47 Normal [facility] Coding Summary.on 11-17-2022 Coding Summary. CD:[id number]+PGhlYWQ+PE1FV LToS90dlXJwrX3WL5jLJ D2CNMCEWWMBSS5FDD6mz HY4KQqaR0KxitYn NvamrEKvRY20CLq1DGB0 fKfaPKylpI4fzWCsA2t8 TfYlDT73nD35IRmfZASa MaZ4PeOiszjmnRWz X1bjKlTamENtZkr+PHRh YmxlIHdpZHRoPScxMDAl HjIyuUeeYC1wNj5tZOFd LWNvbGxhcHNlOiBj o4saGNHgOWvmZZ9wiIgo K6FtvSR0EQGzz8o2Om18 dHI+VZSmQLP8lOodWJfy q555PoKpe4neTEK1 nLCiONjyOAX0T89ld6I5 YYFlBAOnUZL5zCK9oI3s fPqnjtmyE8JjdTJsEfN1 JLZ0mFIbnJ7aoPrs xzhgfV7tNss+A10TCT5A NJLXYF3KSnp8U9PhAyge dHI+CP24MGZkIZ57iVJo iDZof5jciRd0FkIg ZAIaIAF1uFujTOgtz0Ls MVQcR85yeYJuw7I3FIEa zDcufARmSnLfdKX0iU0f YEcdersrn6bhomdo Gihil6shez17iX72P38k HMybIIAmHJF7TIHwYGQb mAqawj1rqT7aUj2+IDxj i4jcv1pkoQr2ZpHp KPOwopYxoMcxLPN1o7Dz Us98Q1RsfCoxc6VwYdu8 ci70kWBlr5G6yJF8DQys AYJseW7jGQihVhI6 LRCbWtHfaV12aPFaPFqz Jq6yfZavhKtuFE1hLGRc ukubRAFmtP7eWOBhmXWw dDnyWW1wFVSrzxby o792ZlHlXJP5HZBbgTQl B5MlmT4kZkIeGQQiKSCl U6CghTCfYPsrA872XJof SnQ0PVMujrLiD6Lo TQZpjPlzJiW7p4A2Fk2U l0GtelauWGQ0OUuiNCKb SfL8MoRmBoL7Y6LnEls0 ZKIxkQqfYA2oN6Uo NFKoglndiisdkOR3ZOLn SAUyrO73cJYsLRyzGh5b o3S1l206EXIlMVEkdV34 Dn1kyZkwSMFazMYC oL4tbldxp5cjumieGsTi YLJhZFr1EHk4IATirOvj ZxKjQUC7OyX4RUH7nUYe eH1wuHnpfgxawL4w Oyc+Z52xoN0qNJJ4PUP4 orifGDZwazTlLA25RE45 P7VvLfsxsHCqfXU+PGRp crRvfAopMI5dOuTx r2kgk6UsEQqlT7HiZJTf PXuxEsn2EFNcTVR7eSA4 kC5eLXRrFStxr9F9lDH1 R2NrydEwlg9vc5hf SYSnKGpnC59wpVXre5H3 GZQldKQ1EPDlhMkyFoGm gO68Izp+XXUfzThqa1Qh Dwocv5gdy0bdpNy4 IjMwJSIgdmFsaWduPSJ0 x3NtGd39C51rXKujWJAy MROrHDFoTYItzWpefl2w bG3zXa6+PGNvbCB3 iIH6iL7wMKLuPnP6VDrw R543FfZlfKUaYedac6ih q2bjjYt5XoQcATOshhLo aUggBGB6z8AdSb07 T00aFJdgPISjTZOpIOYk ONYxoBrgre0tzH9cNt3+ CF8wk1mmtj56gO79wSO+ KEMxQGG3pAkaLIoo YNOckG2vSHzwBqG0PKRr QxKpwR55dGUoEQwrAv1n cYgxzPdhCL4qIZWrleyv z278LiSgg0usLLJg gWIvHWpiWUF3N90un7G8 USFrZVDiOCO8eRX3vN4g bGlnbjogbGVmdDsgdmVy kPaqVRtjWHrnB391 IHRvcDsnPlBhdGllbnQg VsByPRl5A1RhEzd7LEDz fWlgPR3qcPWpXSbeDi7h uQeflGfxHN9sSFAa sitzj490EsLkd1feVUUi mGFcENurJLI4K23zd5K6 NRDmTZKbIPR5lCS3mB2k bGlnbjogbGVmdDsg iwLrxMhpVDaeHSbxD659 IHRvcDsnPkJpcnRoIERh xXT1GA17XM66hESib6R1 qLZ8G4OqYNPtxexn msqbhCY5UFKbLLIppN93 Sj3ecHwqKc9tRAIuCXB6 VMEhhATmR4DgvE0bHlIa JRHxIELhX9NisBZq DDanO144MUtpLiF2XLRf rwEcS3JiONHheKamGiD4 f0O2Hk4DU7V4DM87FM70 dXIxy5K7uCZ6Z8Bk BDDkjrjyubhgbLV9WMCs FZVnyO79Jm2foHqgWq5z DOXgQBM0TGKpxGGoT4Ma uY1fSgKrXBHyEVNl U2YumHEbIJhlV223WKag ZtD1TJUsgjFcC2PjQNYh sHxrJeN6l4T3Zu4NHSc6 SN10RH17jGZgr3J1 iVL9N0QiNEXoayaxgoht jMM1EJHfABHzyI06Rj5w jMubOc1iPWRyYNF4DNCm bBMuV7BwsB6uNtMm WJCvYWTaV7VwmHRdYYuz J898HKifUlA3SIYdxeLy N8JtWOVppVduTzQ8y7U6 Nm6SIGMcKU32HXD0 qDE6NT37VN96V3VrDhtv dGFibGU+PHRhYmxlIHdp ZHRoPScxMDAlJyBzdHls BU6aTg2lWXMpYMEy fLfhzBIpCkHpd6ynUHUl GJfuME8hoXuyJ0VcnMC2 BNTiq3b3Bl24L33wS0Kt dXA+HWLenBI9bUR0 nD0kBkXmTlP7SRofH885 HvLokXToSyrhe3syn3im tJs4CgY4FOUczkKumIlu JWP5g8TnJj39E34v IHdpZHRoPSIxNSUiIHZh qElrkk1ppN0yWi3+PGNv jZK0aBH8lW6wWlAyZsB2 MUxdS883OxZdjIEd Tugkv7hon5totZu8XzUb UYIokcVnfQfvGBV9c4Fc Eu65S0JytZetu3NfSei3 na87zTHjt9V6mSV0 P0OxXKOxtrupcOWgwVyt EH8pXMSbhbfzWYHdkE0v POUnE1c3EsRnMnT2YEtm C4JrsaC0WMUzkJNk QDflRLV9Q22ti5Q1DNAz YJOrCAL0tHK1eA5zyCxt bjogbGVmdDsgdmVydGlj BKaaEOpzE625MBSr dObqWHCvrN1xGJPfpDTb pCrcPD7qRYLypvsaDd5M XDSEDwbiAJSMO1oPOM51 FC79zVXvk5D6qJH7 Y2FeLFYgvpnjmwtppDL4 QWQaAXArdM63kMStKJdd Sm6hb1I6s986MUAfGGIy lH19Mm8dvMljVFZa kORHsZ3cytlbr5fjebqf XuYoYXYaASq7BBu0NUWj hBxkJsUgRJJ3OeP3QXA7 dCLmuZ1slXjxgxzb lB2jByu+MDkvMzAvMTk1 MDwvdGQ+PPTmFYA4dDes HQulGFBgeP4fRZGpE4l1 EcViPqD8QTckY0Uy KCMatxicEb40eA8jFiQq UqS3TGoxQ8LbbuT5OZQw wEDrRJxfSHB8M34rc5Y3 AMZuNRQzPKT4yXN0 aB2uwLwzvuczxGQdcOgi deKjaNelSKjvVSfkA535 IHRvcDsnPjcyIFllYXJz OU63LP16lMTfu9D9 zZK7A9KfUVSdquxjxmfy eTM0NRAnJLEswP71hJFd DHvcVb8zk8G7h996ZTAf SKPddF90Ox6huBie KFIvxKOOtL1tyeazz5pn vmlfXxNcCHObHJb5GUi3 PFEgrFteJhImQDS3BjZ3 FFL7iXWfnP0njTtg czacqM8bJma+RmVtYWxl LB64OS62iPZkw8T5hZR5 I9RoNGWmphaqdjzlzKV3 ONTwIWFrhX72tQKl QNcmGe6ve5F2p199DYNl KHSegT98Pm7hdFnqZIRx cCTQqM6scqwjk2tmnnba QgMzQICfMMb9QHq9 PQZnoEvjDfXgBEY5LhS7 OTO2kBWhyJ6zuGhqhnwj kP7sRen+CWSeWPAfs6Ja k9KcJP56OA03B9Ry PjwvdGFibGU+PHRhYmxl IHdpZHRoPScxMDAlJyBz bBkeNW5hLp2vYLHdFSKr rZixsFMcSqEio1xg UYBuTDoaOC4rxMndL7Sg iAX8NWAnu4d1Oy36X28l Y0AuqSM+VHPqwXW3oWZ7 xW1kZcWxJuB9LLwd B614MvXdtFPmSabqt7gz s7ahwBc0CgIeDMZykyCb gRfuCOO1w2IaXe62V56z IHdpZHRoPSIyMCUi VELdtMcrkp7beL0pRa1+ TMUujKD6pMR8vT4oAnXn YvP9WLwqD205FhZerNIi WmdeZ07mY9VxmBP+ DKDmWls9KWPxkUnwIO2j qBCeXXkiGq8eKPP4IxVz PuCoTXclN4XrSRAgzwuo aixloGG4GYAjCNYk gS51Uu2feAdmVx9uNMAh XBJ4BSGpvVLhX4VzsE9a ZtRgGAOwONNnL4YpiROk MPeuW618XYtqOsF3 XBDgetXeS5GvFYQuaMcr VwH4n4K2Oy2KrQudgFTm GB0mOoYbWSk5K4HpNse4 IQYnvFwtMZ6ijMLb CYnhLc1nlMvezHyoPD9z NDUztkexu964ZmMdq3uu BTXqcVAtGLqnQKH5H99p v5B6IEGhHQXdUIC5 yBE9qR1geHrffgiwpEZm dDsgdmVydGljYWwtYWxp Q942WRYfiItlIoSYRop8 B3PqWoc0BXLhjSlt OS4meCBpAOaaJr3skXxr vNlrRJ0vDJVsfjwfz577 BwBok2meBEHexKPgRSau SBD0P17vq3K7YVPe YCGsMVO8eAM4pS1wuEbv bjogbGVmdDsgdmVydGlj TKdzFAjkY042HVIgnTra He5EPto4O4GwKxm5 EDMitZieFZ8ioDAgYWre Ya0muZzeqIbfCR7cBSXo wufxu680ThTtb7xgLQVz nJSiJCywAEO7U73u i8N2KJPpSOOdLKK4mFS2 vD8buDuumucrmGGlyAlg ruLghSnsQSlgREuqN885 IHRvcDsnPlBheWVy OjwvdGQ+FY42lt04D7Mj LmzvVpz7CRYcGHC4sFP6 dH4gCERvLUkuv8Q5qXQ6 O8MpseDosj2rb9nm YXBz (more content not included)... Normal [facility] Blood Gas Art, with [employer]Bar[employer] queen, [place] 11-11-2022 a/A Ratio Art 72.90 % Normal >=0.80 [facility] Comment on above: Performed By: #### [id number] #### [facility] [address] [place] [address] AaDO2 Art 24.8 mmHg High 5.0-15.0 [facility] Comment on above: Performed By: #### 4 [id number] #### [facility] [address] [place] [address] Allens Test Positive Normal [facility] Comment on above: Performed By: #### 4 [id number] #### [facility] [address] [place] [address] Base Excess Arterial 4.8 mmol/L Normal >=2.8 [facility] Comment on above: Performed By: #### 4 [id number] #### [facility] [address] [place] [address] cCa2+ Art 4.72 mg/dL Normal 4.40-5.30 [facility] Comment on above: Performed By: #### 4 [id number] #### [facility] [address] [place] [address] cCl- Art 105.0 mmol/L Normal 101.0-111.0 [facility] Comment on above: Performed By: #### 4 [id number] #### [facility] [address] [place] [address] cGlu Art 125 mg/dL High 55-99 [facility] Comment on above: Performed By: #### 4 [id number] #### [facility] [address] [place] [address] cK+ Art 4.0 mmol/L Normal 3.5-5.3 [facility] Comment on above: Performed By: #### 4 [id number] #### [facility] [address] [place] [address] cLac Art 1.1 mmol/L Normal .5-2.2 [facility] Comment on above: Performed By: #### 4 [id number] #### [facility] [address] [place] [address] tune up mechanic+ Art 143.0 mmol/L Normal 135.0-145.0 [facility] Comment on above: Performed By: #### 4 [id number] #### [facility] [address] [place] [address] Drawn by [employer] Invalid Interpretation Code [facility] Comment on above: Performed By: #### 4 [id number] #### [facility] [address] [place] [address] FCOHb Art 1.1 % Low 1.5-4.9 [facility] Comment on above: Result Comment: Refe rence range Nonsmoker <1.5% Smoker <5.0% Heavy Smoker <9.0% Performed By: #### 4 [id number] #### [facility] [address] [place] [address] FIO2 BG 21 Invalid Interpretation Code [facility] Comment on above: Performed By: #### 4 [id number] #### [facility] [address] [place] [address] FMetHb Art 0.3 % Normal 0.0-1.9 [facility] Comment on above: Performed By: #### 4 [id number] #### [facility] [address] [place] [address] FO2Hb Art 93.3 % Normal 92.0-100.0 [facility] Comment on above: Performed By: #### 4 [id number] #### [facility] [address] [place] [address] HCO3 (Bld) [Moles/Vol] 28.7 mmol/L High 22.0-26.0 [facility] Comment on above: Performed By: #### 4 [id number] #### [facility] [address] [place] [address] Hemoglobin (Bld) [Mass/Vol] 13.5 g/dL Normal 12.0-16.0 [facility] Comment on above: Performed By: #### 4 [id number] #### [facility] [address] [place] [address] Oxygen saturation in Blood 94.6 % Low 95.0-100.0 [facility] Comment on above: Performed By: #### 4 [id number] #### [facility] Laboratory [address] [place] [address] P CO2 Arterial 46.1 mmHg High 35.0-45.0 [facility] Comment on above: Performed By: #### [id number] #### [facility] Laboratory [address] [place] [address] P O2 Arterial 66.9 mmHg Low 80.0-100.0 [facility] Comment on above: Performed By: #### [id number] #### [facility] Laboratory [address] [place] [address] pH Arterial 7.423 Normal 7.350-7.450 [facility] Comment on above: Performed By: #### [id number] #### [facility] Laboratory [address] [place] [address] Sample Site R Radial Normal [facility] Comment on above: Performed By: #### [id number] #### [facility] Laboratory [address] [place] [address] Sample Type Arterial Draw Normal [facility] Comment on above: Performed By: #### [id number] #### [facility] Laboratory [address] [place] [address] CARDIAC STRESS TESTon 2022 CARDIAC STRESS TEST [...] ambulatory oxygen. Clinical correlation required. Normal [facility] HEMOGLOBINon 11-11-2022 Hemoglobin (Bld) [Mass/Vol] 13.1 g/dL Normal 12.0-16.0 [facility] Comment on above: Performed By: #### P OCGLUC #### [facility] Laboratory [address] [address] [address] Demetrio Kan LAB TESTINGon 11-11-2022 RECV HEADER SEE SCANNED REPORT IN HPF [facility] Comment on above: Performed By: #### M ISC ####[facility] [id number] [address]Dr. Demetrio Kan REV FROM REF LAB 11/11/2022 [facility] Comment on above: Performed By: #### M ISC ####[facility] [id number] [id number]. Demetrio Kan SENT TO REF LAB 11/11/2022 [facility] Comment on above: Performed By: #### M ISC ####[facility] [id number] [id number]. Demetrio Kan Physician Orderon 11-11-2022 Physician Order [id number] 0#[id number]:127 Normal [facility] Vital Signs Date Time Vital Sign Value Performing Clinician Facility 06-20-2024 13:03-0400 Body height 152.4 cm [facility] 06-20-2024 13:03-0400 Body mass index (BMI) [Ratio] 20.9 kg/m2 [facility] 06-20-2024 13:03-0400 Body temperature 97.4 [degF] [facility] 06-20-2024 13:03-0400 Body weight 48.53 kg [facility] 06-20-2024 13:03-0400 Diastolic blood pressure 76 mm[Hg] [facility] 06-20-2024 13:03-0400 Heart rate 64 /min [facility] 06-20-2024 13:03-0400 SaO2% (BldA) [Mass fraction] 92 % [facility] 06-20-2024 13:03-0400 Systolic blood pressure 122 mm[Hg] [facility] 03-06-2024 13:26-0400 Body height 152.4 cm [facility] 03-06-2024 13:26-0400 Body mass index (BMI) [Ratio] 21.2 kg/m2 [facility] 03-06-2024 13:26-0400 Body weight 49.44 kg [facility] 03-06-2024 13:26-0400 Diastolic blood pressure 62 mm[Hg] [facility] 03-06-2024 13:26-0400 Heart rate 71 /min [facility] 03-06-2024 13:26-0400 SaO2% (BldA) [Mass fraction] 98 % [facility] 03-06-2024 13:26-0400 Systolic blood pressure 106 mm[Hg] [facility] 02-08-2024 11:03-0400 Body height 152.4 cm [facility] 02-08-2024 11:03-0400 Body mass index (BMI) [Ratio] 21.2 kg/m2 [facility] 02-08-2024 11:03-0400 Body weight 49.44 kg [facility] 02-08-2024 11:03-0400 Diastolic blood pressure 60 mm[Hg] [facility] 02-08-2024 11:03-0400 Heart rate 88 /min [facility] 02-08-2024 11:03-0400 SaO2% (BldA) [Mass fraction] 96 % [facility] 02-08-2024 11:03-0400 Systolic blood pressure 104 mm[Hg] [facility] 10-18-2023 13:13-0500 Body mass index (BMI) [Ratio] 21.64 kg/m2 Tasha Padgett MD Work Phone: [facility] 10-18-2023 13:13-0500 Body weight 50.26 kg Tasha Padgett MD Work Phone: [employer] 10-18-2023 13:13-0500 Diastolic blood pressure 56 mm[Hg] Tasha Padgett MD Work Phone: [facility] [employer] 10-18-2023 13:13-0500 Systolic blood pressure 108 mm[Hg] Tasha Padgett MD Work Phone: [employer] 08-03-2023 11:00-0400 Body height Lazara Hernandez Other [employer] Other 08-03-2023 11:00-0400 Body mass index (BMI) [Ratio] 20.89 kg/m2 Lazara Hernandez Other [employer] Other 08-03-2023 11:00-0400 Body weight 48.54 kg Lazara Hernandez Other [employer] Other 08-03-2023 11:00-0400 Diastolic blood pressure 64 mm[Hg] Lazara Hernandez Other [employer] Other 08-03-2023 11:00-0400 SaO2% (BldA) [Mass fraction] 98 % Lazara Mary Other [employer] Other 08-03-2023 11:00-0400 Systolic blood pressure 115 mm[Hg] Lazara Hernandez Other [employer] Other Encounters Encounter Date Encounter Type Care Provider Facility Start: 06-20-2024 End: 06-20-2024 ambulatory [facility] Work Phone: Start: 06-20-2024 End: 06-20-2024 Patient encounter procedure [facility] Work Phone: Start: 06-16-2024 End: 06-16-2024 [facility] Start: 06-11-2024 End: 06-11-2024 [facility] Start: 04-19-2024 Non-patient / Non-visit [facility] [employer] Work Phone: Start: 04-17-2024 End: 04-17-2024 ambulatory [facility] Work Phone: Start: 04-17-2024 End: 04-17-2024 Patient encounter procedure [facility] Work Phone: Start: 04-17-2024 End: 04-17-2024 ambulatory [facility] Start: 03-06-2024 End: 03-06-2024 ambulatory [facility] Work Phone: Start: 03-06-2024 End: 03-06-2024 Patient encounter procedure [facility] Work Phone: Start: 02-09-2024 Patient encounter procedure [facility] Start: 02-08-2024 End: 02-08-2024 ambulatory [facility] Work Phone: Start: 02-08-2024 End: 02-08-2024 Patient encounter procedure [facility] Work Phone: Start: 01-30-2024 End: 01-30-2024 ambulatory LIBERTY Tolentino [facility] Start: 01-24-2024 End: 01-24-2024 ambulatory MICHELLE Womack SANDEEPJADIELORSTEPHAN [facility] Start: 01-17-2024 End: 01-17-2024 ambulatory [facility] Start: 01-17-2024 End: 01-18-2024 ambulatory [facility] Start: 10-18-2023 End: 10-18-2023 ambulatory [facility] Start: 10-18-2023 End: 10-18-2023 Office outpatient visit 15 minutes Tasha Padgett MD Work Phone: [facility] Comment on above: Midline cystocele (P rimary Dx) Start: 08-08-2023 End: 08-08-2023 ambulatory Lazara Hernandez Other [employer] Other Start: 08-08-2023 Telephone encounter Lazraa Darden her [facility] Start: 08-03-2023 End: 08-03-2023 ambulatory Lazara Hernandez Other [employer] Other Start: 08-03-2023 Office outpatient ne w 30 minutes Lazara Hernandez [facility] Start: 01-11-2023 End: 01-12-2023 ambulatory NAGA SAMSA . Facility:[facility] Start: 12-29-2022 End: 12-31-2022 Evaluation and management of inpatient DR WESLEY VALDIVIA Facility:[facility] Start: 11-17-2022 End: 11-18-2022 ambulatory NAGA SAMSA . Facility:[facility] Start: 11-11-2022 End: 11-12-2022 ambulatory NAGAJORGE VENTURA Facility:[facility] Start: 11-11-2022 End: 11-12-2022 ambulatory NAGA AUDREY . Facility: Start: 01-24-2018 End: 09-08-2020 Patient encounter status Tasha Padgett MD Work Phone: [facility] Work Phone: Procedures Date Procedure Procedure Detail Performing Clinician Start: 06-11-2024 Follow-up visit Follow-up VINCE WATTS Start: 01-30-2024 Follow-up visit Follow-up LIBERTY A RAMÍREZ Start: 10-28-2021 Adult depression screening assessment Tasha Padgett MD Work Phone: History of placement of stent for coronary artery disease Lazara Hernandez Other Plan of Treatment Date Care Activity Detail Author Start: 10-18-2024 Adult BMI Screening Adult BMI Screening [facility] Start: 10-18-2024 Tobacco Screening Tobacco Screening [facility] Start: 03-06-2024 Patient referral [facility] Work Phone: Start: 01-30-2024 End: 01-30-2024 Patient encounter procedure 01/30/2024 1:00 PM EDT Office Visit [facility] [address] [place] [id number] Jose Gallo, SPORTS OFFICIAL-CLIP ON 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 [address] KRISTINA NUNEZ, [address] [address] [facility] Start: 01-24-2024 End: 01-24-2024 Patient encounter procedure [facility] Start: 01-17-2024 End: 01-17-2024 Patient encounter procedure 01/17/2024 1:00 PM EDT Office Visit [facility] [address] [place] [address] Tasha Padgett MD [address] [place] [address] [facility] Start: 10-28-2022 Depression Screening Depression Screening [facility] Start: 2015 Fall Risk Screening Fall Risk Screening [facility] Start: 1969 DTaP,Tdap and Td Vaccines (1 - Tdap) DTaP,Tdap and Td Vaccines (1 - Tdap) [facility] Start: 1950 Medicare Annual Wellness Visit Medicare Annual Wellness Visit [facility] Start: 1950 Tobacco Counseling Tobacco Counseling [facility] Comprehensive metabo lic 2000 panel - Serum or Plasma [facility] Comprehensive metabo lic 1999 panel - Serum or Plasma [facility] CT Neck [facility] DXA Skeletal system. axial Views for bone density [facility] MG Breast - bilatera l Screening [facility] Patient referral [facility] Work Phone: [facility] Immunizations Immunization Date Immunization Notes Care Provider Fa cility 02-08-2024 Pneumococcal Conjuga te Vaccine, [address] [facility] 06-26-2016 influenza, high dose seasonal, preservative-free Tasha Padgett MD Work Phone: [facility] 09-10-2015 influenza, seasonal, injectable Tasha Padgett MD Work Phone: [facility] 09-10-2015 pneumococcal conjuga te vaccine, 13 valent Tasha Padgett MD Work Phone: [facility] Payers Date Payer Category Payer Unknown [employer] [id number] 2021-Present [phone] [address] [address] [id number] 2015 Medicare MEDICARE MEDICAR E PART A & B [id number] 2015-Present [phone] [address] [place] [address] [id number] 1959 Medicare [id number] 1959 Unknown [id number] 1950 Unknown [id number] 2.16.840.1.028199.3.579. 2.727 1950 Unknown [id number] 2.16.840.1.495915.3.579. 2.593 1950 Unknown [id number] 2.16.840.1.863922.3.579. 2.593 1950 Unknown [id number] 2.16.840.1.268240.3.579. 2.593 1950 Unknown [id number] 2.16.840.1.207350.3.579. 2.593 1950 Unknown [id number] 2.16.840.1.663682.3.579. 2.1286 1950 Unknown [id number] 2.16.840.1.840105.3.579. 2.1286 1950 Unknown [id number] 2.16.840.1.761745.3.579. 2.1286 1950 Unknown [id number] 2.16.840.1.254387.3.579. 2.1286 1950 Unknown [id number] 2.16.840.1.181480.3.579. 2.1286 1950 Unknown [id number] 2.16.840.1.302844.3.579. 2.128 1950 Unknown [id number] 2.16.840.1.757888.3.579. 2.1286 1950 Unknown [id number] 2.16.840.1.240534.3.579. 2.1286 1950 Unknown [id number] 2.16.840.1.831472.3.579. 2.1286 1950 Unknown [id number] 2.16.840.1.046551.3.579. 2.1286 Private Health Insurance [facility] [id number] Self-pay Self Pay [id number] Unknown Regular Insurance [id number] Social History Date Type Detail Facility Unknown if ever smoked [employer] Other Start: 11-13-2020 End: 10-18-2023 Sex Assigned At [employer] Start: 04-18-2023 Tobacco smoking stat us [facility] Occasional tobacco smoker [facility] End: 10-03-2022 History of tobacco use Cigarette Smoker [facility] Start: 11-13-2020 End: 04-18-2023 Cigarettes smoked current (pack per day) - Reported 1.5 [facility] Start: 04-18-2023 Tobacco use and exposure Smokeless tobacco non-user [facility] Start: 10-18-2023 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 Start: 1950 Sex Assigned At Female F [facility] Clinical Notes 08-03-2023 to 03-06-2024 Tasha Padgett MD - 10/18/2023 1:00 PM EST Note Date & Type Note Facility 03-06-2024 Hospital Discharg e instructions Ambulatory OrdersReferral to Orthopedic Surgery Time Frame: 03/06/24, Location: None Selected [facility] Work Phone: 10-18-2023 History of Presen t illness Narrative [...] TASHA PADGETT MD documented in this encounter [facility] 08-03-2023 Evaluation note Encounter Date Diagnosis Assessment [...] and willingness to quit at each appointment. [employer] Other Evaluation [employer]No [employer] Other Evaluation note* Diagnosis Midline cystocele- Primary Cystocele, midline documented in this encounter [employer] System[employer] note* Diagnosis Onset Date Resolution Status Controlled type 2 diabetes mellitus without complicati on acute Muscle cramping acute Restless leg syndrome acute [facility] Work Phone: Evaluation note* Diagnosis Onset Date Resolution Status Cigarette nicotine dependence without complication acute Controlled type 2 diabetes mellitus without complicati on acute Medicare annual wellness visit, subsequent acute Muscle cramping acute Post-menopausal acute Restless leg syndrome acute Screening for breast cancer acute Screening for colon cancer a cute Screening for osteoporosis a cute Osteoporosis acute [facility] Work Phone: Evaluation note* Diagnosis Onset Date Resolution Status Cigarette nicotine dependence without complication acute Controlled type 2 diabetes mellitus without complicati on acute Medicare annual wellness visit, subsequent acute Muscle cramping acute Post-menopausal acute Restless leg syndrome acute Screening for breast cancer acute Screening for colon cancer a cute Screening for osteoporosis a cute Osteoporosis acute Osteoporosis acute [facility] Work Phone: Evaluation note* Diagnosis Onset Date Resolution Status Osteoporosis acute Cigarette nicotine dependence without complication acute Localized swelling, mass and lump, neck acute [facility] Work Phone: Hismlpc general Narrative - Reported* Type Description Date Medical History diabetic Medical History hypertension Medical History heart attack Surgical History breast biopsy Surgical History stents x2 2013 Hospitalization History see surgical hx [employer] Other InstructionsNot on filedocumented in this encounter eSKY.plst. [facility]cent[facility] [employer] Summary Purpose Family History Relationship Condition Age at Onset Recorded Date/T ameena father Unknown Heart disease Unknown Not Specified Unknown natural son Unknown sister Malignant neoplasm Unknown Relationship Condition Age at Onset Recorded Date/T ameena father Unknown Heart disease Unknown mother Unknown son Unknown sister Malignant neoplasm Unknown Advance [...] for colon cancer Screening for osteoporosis Osteoporosis Chief Complaint MAWV Discuss Dexa Scan CONSULT LENA MARY OWN THE BONE Reason for Visit Cigarette nicotine d ependence without complication Controlled type 2 diabetes mellitus without complication Medicare annual wellness visit, subsequent Muscle cramping Post-menopausal Restless leg syndrome Screening for breast cancer Screening for colon cancer Screening for osteoporosis Osteoporosis Osteoporosis Chief Complaint CONSULT LENA KEYANNA CHURCHILL OWN THE BONE Lump on right side of neck Reason for Visit Osteoporosis Cigarette nicotine dependence without complication Localized swelling, mass and lump, neck Additional Source Comments INFORMATION SOURCE (unrecogn ized section and content) DATE CREATED AUTHOR 11/18/2022 [facility] DATE CREATED AUTHOR AUTHOR'S ORGANIZ ATION [facility]/17/2023 [facility] DATE CREATED AUTHOR AUTHOR'S ORGANIZ ATION 01/19/2024 [facility] DATE CREATED AUTHOR AUTHOR'S ORGANIZ ATION 04/21/2024 [facility] DATE CREATED AUTHOR AUTHOR'S ORGANIZ ATION 06/18/2024 [facility] REASON FOR VISIT (unrecogniz ed section and content) Reason Comments Pessary; cleaning Care Teams (unrecognized sec tion and content) 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 Relationship Specialty Start Date End Date Wesley Valdivia DO [address] [place] [address] PCP - General 08/02/13 Team Status: Active Member Role Status Dates Lazara Hernandez APRN OUTSIDE REPAIRER SPECIAL-C Primary Care Provider Active Team Status: Inactive Member Role Status Dates BILL Pratt Primary Care Provider, Attending Provider Active Start: February 08, 2024 End: February 08, 2024 Team Status: Inactive Member Role Status Dates Lazara Hernandez APRN OUTSIDE REPAIRER SPECIAL-C Primary Care Provider, Attending Provider Active Start: March 06, 2024 End: March 06, 2024 Team Status: Inactive Member Role Status Dates BILL Pratt Primary Care Provider Active Start: April 17, 2024 End: April 17, 2024 KAN Gamino Attending Provider Active Start: April 17, 2024 End: April 17, 2024 Team Status: Active Member Role Status Dates BILL Pratt Primary Care Provider Active Start: April 19, 2024 KAN Gamino Attending Provider Active Start: April 19, 2024 Team Status: Inactive Member Role Status Dates Lazara Hernandez APRN OUTSIDE REPAIRER SPECIAL-Chantel Primary Care Provider, Attending Provider Active Start: June 20, 2024 End: June 20, 2024 Goals (unrecognized section and content) Goals [...] BE BASED ON THE PRIMARY CLINICAL RECORDS. [employer] [facility]. provides no warranty or guarantee of the accuracy or completeness of information in this document.
[2024-06-20 14:26] LABS: Alanine Aminotransferase 23 U/L (14-59); Albumin Level 3.2 g/dL (3.4-5.0); Alkaline Phosphatase 122 U/L (46-116); Anion Gap 9.9; Aspartate Amino Transferase 21 U/L (15-37); BUN Creatinine Ratio 26.9; Bilirubin Total 0.5 mg/dL (0.2-1.0); Calcium 8.9 mg/dL (8.5-10.1); Carbon Dioxide 28.2 mmol/L (21.0-32.0); Chloride 107 mmol/L (98-107); Estimated GFR (African America >60 (>=60); Estimated GFR (Non-African Ame >60 (>=60); Globulin 3.1 g/dL; Glucose 122 mg/dL (74-106); Potassium 4.1 mmol/L (3.5-5.1); Sodium 141 mmol/L (136-145); Total Protein 6.3 g/dL (6.4-8.2)
== END 2024-06-20 13:53 | disposition home or self-care (01) ==
LOC: LAB 13:56
PROVIDERS: PCP Nurse Practitioner Family; Visit Provider Nurse Practitioner Family
DX: M81.0 Age-related osteoporosis without current pathological fracture (principal)
CPT/HCPCS: 36415; 80053

== ENCOUNTER 2024-06-29 08:42 | Outpatient (OUT) | payer MEDICARE, OTHER, MEDICAID, SELFPAY ==
--- NOTE | 2024-06-29 08:46 | CT_ITS ---
[address] [address] Patient Name: TRAN RAYA MRN: [id number] date: 1950 Sex: F Assigned Patient Location: CT Current Patient Location: Accession/Order Number: [id number] Exam Date: 06/29/2024 09:00 Report Date: 06/30/2024 05:38 At the request of: ASIM BANGURA Procedure: CT soft tissue neck wo/w con EXAMINATION: CT soft tissue neck wo/w con HISTORY: localized swelling, mass COMPARISON: No relevant comparison available. TECHNIQUE: Axial, Coronal, and Sagittal CT images created with IV contrast. Dose reduction techniques were achieved by using automated exposure control and/or adjustment of mA and/or kV according to patient size and/or use of iterative reconstruction technique. FINDINGS: NASOPHARYNX: No asymmetry of the fossae of Rosenmuller and torus tubarius. ORAL CAVITY: No visible mass. OROPHARYNX: No asymmetry of the facial and lingual tonsils. HYPOPHARYNX: No mass or other visible lesion. LARYNX: No mass or asymmetry of the vocal cords. SINUSES: No significant fluid or mucosal thickening. NECK GLANDS: 2.1 x 2.0 x 1.8 cm isodense mass versus complex cyst within inferior aspect of right parotid gland. 1.0 cm hypodense nodule versus colloid cyst within right thyroid lobe. LYMPH NODES: No pathological-appearing or enlarged lymph nodes. VASCULATURE: Marked atherosclerotic disease causing moderate or greater narrowing of the proximal left internal carotid artery. Mild atherosclerotic disease on right. 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 OTHER: Mild emphysematous changes within lung apices. CT/CT soft tissue neck wo/w con IMPRESSION: 1. Nonspecific 2.1 cm mass within right parotid gland; further evaluation with ultrasound and tissue sampling should be considered. 2. Right thyroid lobe 1.0 cm hypodense mass versus colloid cyst. Consider ultrasound evaluation. 3. Marked atherosclerotic disease and moderate or greater narrowing of the left proximal internal carotid artery. Electronically authenticated by: HARPER GORDILLO Date: 06/30/2024 05:38
--- OUTSIDE RECORDS SUMMARY | 2024-06-29 08:47 | XMS_ITS | CCD ---
Author Organization [facility] CliniSymt Care Team Providers Care 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 Name Role Phone SAMSA, NAGA P Attending [...] [employer]AT[employer] Unavailable Lazara Hernandez Unavailable [phone] Wesley Valdivia DO Primary Care Provider TASHA [...] (1 source) Ticagrelor Drug Allergy 12-29-[address] 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 CURRENT DRUG THERAPY] Onset: 01-05-2023 Episodic Other aftercare (1 source) [facility] (current) use of oral hypoglycemic drugs; Translations: [RETIREMENT USE ORAL HYPOGLYCEMIC DX] Onset: 01-05-2023 Episodic [...] 24 ABSOLUTE BASOPHIL 0.1 X10E9/L Normal 0.0-0.2 [facility] Comment on above: Performed By: #### Chantel SALAZAR CMP, , #### [facility] ([id number]) [address], [address] [place] [address] ABSOLUTE NEUTROPHIL 3.7 X10E9/L Normal 1.5-6.6 [facility] Comment on above: Performed By: #### Chantel SALAZAR CMP, , 83729-5 #### [facility] ([id number]) [address], [address] [place] [address] Basophils/100 WBC (Bld) 0.9 % Normal [facility] Comment on above: Performed By: #### Chantel SALAZAR CMP, , 76715-5 #### [facility] ([id number]) [address], [address] [place] [address] Eosinophils (Bld) [#/Vol] 0.3 10*3/uL Normal 0.0-0.4 [facility] Comment on above: Performed By: #### Chantel SALAZAR CMP, , #### [facility] ([id number]) [address], [address] [place] [address] Eosinophils/100 WBC (Bld) 4.1 % Normal [facility] Comment on above: Performed By: #### C MARIE CMP, , #### [facility] ([id number]) [address], [address] [place] [address] Erythrocyte distribution width (RBC) [Ratio] 14.1 % Normal 11.5-15.0 [facility] Comment on above: Performed By: #### C MARIE, CMP, , #### [facility] ([id number]) [address], [address] [place] [address] Hematocrit (Bld) [Volume fraction] 43.4 % Normal 35-47 [facility] Comment on above: Performed By: #### Chantel BCA, CMP, , #### [facility] ([id number]) [address], [address] [place] [address] Hemoglobin (Bld) [Mass/Vol] 14.3 g/dL Normal 11.7-15.5 [facility] Comment on above: Performed By: #### Chantel BCA, CMP, , #### [facility] ([id number]) [address], [address] [place] [address] Lymphocytes (Bld) [#/Vol] 1.8 10*3/uL Normal 1.0-3.5 [facility] Comment on above: Performed By: #### C BCA, CMP, , #### [facility] ([id number]) [address], [address] [place] [address] Lymphocytes/100 WBC (Bld) 28.5 % Normal [facility] Comment on above: Performed By: #### C BCA, CMP, , #### [facility] ([id number]) [address], [address] [place] [address] MCH (RBC) [Entitic mass] 30.9 pg Normal 27-34 [facility] Comment on above: Performed By: #### C BCA, CMP, , #### [facility] ([id number]) [address], [address] [place] [address] MCHC (RBC) [Mass/Vol] 32.9 g/dL Normal 32-36 [facility] Comment on above: Performed By: #### C BCA, CMP, , #### [facility] ([id number]) [address], [address] [place] [address] MCV (RBC) [Entitic vol] 94 fL Normal 80-100 [facility] Comment on above: Performed By: #### Chantel BCA, CMP, , #### [facility] ([id number]) [address], [address] [place] [address] Monocytes (Bld) [#/Vol] 0.5 10*3/uL Normal 0-0.9 [facility] Comment on above: Performed By: #### Chantel BCA, CMP, , #### [facility] ([id number]) [address], [address] [place] [address] Monocytes/100 WBC (Bld) 8.0 % Normal [facility] Comment on above: Performed By: #### C BCA, CMP, , #### [facility] ([id number]) [address], [address] [place] [address] Neutrophils/100 WBC (Bld) 58.5 % Normal [facility] Comment on above: Performed By: #### C BCA, CMP, , #### [facility] ([id number]) [address], [address] [place] [address] Platelet mean volume (Bld) [Entitic vol] 8.7 fL Normal 7-12 [facility] Comment on above: Performed By: #### C BCA, CMP, , #### [facility] ([id number]) [address], [address] [place] [address] Platelets (Bld) [#/Vol] 171 10*3/uL Normal 150-450 [facility] Comment on above: Performed By: #### C BCA, CMP, , #### [facility] ([id number]) [address], [address] [place] [address] RBC COUNT 4.63 X10E12/L Normal 3.80-5.20 [facility] Comment on above: Performed By: #### C BCA, CMP, , #### [facility] ([id number]) [address], [address] [place] [address] WBC (Bld) [#/Vol] 6.4 10*3/uL Normal 4.0-11.0 [facility] Comment on above: Performed By: #### C BCA, CMP, , #### [facility] ([id number]) [address], [address] [place] [address] COMPREHENSIVE METABOLIC PANE Sal 06-16-2024 Albumin [Mass/Vol] 3.8 g/dL Normal 3.2-5.3 [facility] Comment on above: Performed By: #### C BCA, CMP, , 17308-9 #### [facility] ([id number]) [address], [address] [place] [address] ALP [Catalytic activity/Vol] 103 U/L Normal 39-130 [facility] Comment on above: Performed By: #### C BCA, CMP, , 12589-8 #### [facility] ([id number]) [address] [place] [address] ALT [Catalytic activity/Vol] 13 U/L Normal 0-31 [facility] Comment on above: Performed By: #### C BCA, CMP, , #### [facility] ([id number]) [address] [place] [address] Anion gap [Moles/Vol] 6 mmol/L Normal 5-15 [facility] Comment on above: Performed By: #### C BCA, CMP, , 70456-6 #### [facility] ([id number]) [address], [address] [place] [address] AST [Catalytic activity/Vol] 14 U/L Normal 0-41 [facility] Comment on above: Performed By: #### C BCA, CMP, , 38340-4 #### [facility] ([id number]) [address] [place] [address] Bilirubin [Mass/Vol] 0.6 mg/dL Normal 0.3-1.2 [facility] Comment on above: Performed By: #### C BCA, CMP, , #### [facility] ([id number]) [address], [address] [place] [address] Calcium [Mass/Vol] 10.0 mg/dL Normal 8.5-10.5 [facility] Comment on above: Performed By: #### C BCA, CMP, , 02208-3 #### [facility] ([id number]) [address] [place] [address] Chloride [Moles/Vol] 107 mmol/L Normal 98-109 [facility] Comment on above: Performed By: #### C PARKER SALAZAR, , #### [facility] ([id number]) [address] [place] [address] CO2 [Moles/Vol] 32 mmol/L Normal 22-32 [facility] Comment on above: Performed By: #### C PARKER SALAZAR, , #### [facility] ([id number]) [address] [place] [address] Creatinine [Mass/Vol] 0.92 mg/dL Normal 0.40-1.00 [facility] Comment on above: Result Comment: METH OD TRACEABLE TO IDMS STANDARD Performed By: #### C PARKER SALAZAR, , #### [facility] ([id number]) [address] [place] [address] GFR/1.73 sq M.predicted among non-blacks MDRD (S/P/Bld) [Vol rate/Area] 66 mL/min/{1.73_m2} Normal >59 [facility] Comment on above: Result Comment: Reported eGFR is based on the CKD-EPI 2020 equation that does not use a race coefficient. Performed By: #### C PARKER SALAZAR, , #### [facility] ([id number]) [address], [address] [place] [address] Glucose [Mass/Vol] 112 mg/dL High 65-99 [facility] Comment on above: Performed By: #### C PARKER SALAZAR, , #### [facility] ([id number]) [address], [address] [place] [address] Potassium [Moles/Vol] 4.0 mmol/L Normal 3.5-5.0 [facility] Comment on above: Performed By: #### C PARKER SALAZAR, , #### [facility] ([id number]) [address], [address] [place] [address] Protein [Mass/Vol] 5.8 g/dL Low 6.0-8.0 [facility] Comment on above: Performed By: #### C BCA, CMP, , 83479-0 #### [facility] ([id number]) [address] [place] [address] Sodium [Moles/Vol] 145 mmol/L Normal 134-146 [facility] Comment on above: Performed By: #### C BCA, CMP, 34589-0, 82671-2 #### [facility] ([id number]) [address], [address] [place] [address] Urea nitrogen [Mass/Vol] 20 mg/dL Normal 5-27 [facility] Comment on above: Performed By: #### C BCA, CMP, 50952-0, 87534-8 #### [facility] ([id number]) [address], [address] [place] [address] Lipid 1996 panelon 4 Cholesterol [Mass/Vol] 152 mg/dL Normal 150-200 [facility] Comment on above: Performed By: #### C BCA, CMP, , 66051-9 #### [facility] ([id number]) [address], [address] [place] [address] Cholesterol in HDL [Mass/Vol] 53 mg/dL Normal >39 [facility] Comment on above: Result Comment: HDL <40 mg/dL - High Risk HDL > or = 40mg/dL- Desirable HDL >60 mg/dL - Negative Risk Performed By: #### C BCA, CMP, , #### [facility] ([id number]) [address] [place] [address] Cholesterol in LDL [Mass/Vol] 82 mg/dL Normal <130 [facility] Comment on above: Result Comment: LDL <100 mg/dL - Desirable LDL >160 mg/dL - High Risk Performed By: #### C BCA, CMP, 65687-7, 44608-0 #### [facility] ([id number]) [address], [address] [place] [address] Cholesterol in VLDL [Mass/Vol] 17 mg/dL Normal 0-30 [facility] Comment on above: Performed By: #### Chantel BCA, CMP, , 12205-4 #### [facility] ([id number]) [address], [address] [place] [address] CHOLESTEROL:HDL 2.9 Normal 1.0-5.0 [facility] Comment on above: Performed By: #### Chantel BCA, CMP, , 61418-0 #### [facility] ([id number]) [address], [address] [place] [address] Triglyceride [Mass/Vol] 84 mg/dL Normal 27-150 [facility] Comment on above: Performed By: #### C BCA, CMP, 03774-5, 51331-8 #### [facility] ([id number]) [address], [address] [place] [address] MAGNESIUMon 06-16-2024 Magnesium [Mass/Vol] 1.8 mg/dL Normal 1.8-2.6 [facility] Comment on above: Performed By: #### Chantel BCA, CMP, 51211-7, 20251-9 #### [facility] ([id number]) [address] [place] [address] Basophils/100 WBC Manual cnt (Bld)on 04-19-2024 Basophils/100 WBC (Bld) 1.0 % 0.2-2.0 [facility] Eosinophils/100 WBC Manual c nt (Bld)on 04-19-2024 Eosinophils/100 WBC (Bld) 3.0 % 0.9-7.0 [facility] Erythrocyte distribution wid th Auto (RBC) [Ratio]on 04-19-2024 Erythrocyte distribution width (RBC) [Ratio] 12.8 % 11.0-15.0 [facility] Estimated glomerular filtrat ion rate (GFR) non- Americanon 04-19-2024 GFR/1.73 sq M.predicted among non-blacks MDRD (S/P/Bld) [Vol rate/Area] 57 mL/min/{1.73_m2} Low >=60 [facility] Globulin Calc (S) [Mass/Vol] on 04-19-2024 Globulin (S) [Mass/Vol] 3.2 g/dL [facility] Hematocrit Auto (Bld) [Volum e fraction]on 04-19-2024 Hematocrit (Bld) [Volume fraction] 44.9 % 36.0-48.0 [facility] Hemoglobin [Mass/volume] in Bloodon 04-19-2024 Hemoglobin (Bld) [Mass/Vol] 14.6 g/dL 12.0-16.0 [facility] - Chemistry and C hemistry - challengeon 04-19-2024 Albumin [Mass/Vol] 3.2 g/dL Low 3.4-5.0 [facility] ALP [Catalytic activity/Vol] 126 U/L High 46-116 [facility] ALT [Catalytic activity/Vol] 25 U/L 14-59 [facility] AST [Catalytic activity/Vol] 17 U/L 15-37 [facility] Bilirubin [Mass/Vol] 0.4 mg/dL 0.2-1.0 [facility] Calcium [Mass/Vol] 8.8 mg/dL 8.5-10.1 [facility] Chloride [Moles/Vol] 106 mmol/L 98-107 [facility] CO2 [Moles/Vol] 31.6 mmol/L 21.0-32.0 [facility] Creatinine [Mass/Vol] 0.96 mg/dL 0.55-1.02 [facility] GFR/1.73 sq M.predicted MDRD (S/P/Bld) [Vol rate/Area] mL/min/{1.73_m2} >=60 [facility] Glucose [Mass/Vol] 100 mg/dL 74-106 [facility] Potassium [Moles/Vol] 4.3 mmol/L 3.5-5.1 [facility] Protein [Mass/Vol] 6.4 g/dL 6.4-8.2 [facility] Sodium [Moles/Vol] 143 mmol/L 136-145 [facility] TSH Qn 1.983 m[IU]/L 0.358-3.740 [facility] Urea nitrogen [Mass/Vol] 21.0 mg/dL High 7.0-18.0 [facility] Urea nitrogen/Creatinine [Mass ratio] 21.9 mg/mg [facility] - Hematology and Cell countson 04-19-2024 Lymphocytes/100 WBC (Bld) 36.0 % 20.5-60.0 [facility] Monocytes/100 WBC (Bld) 1.0 % Low 1.7-12.0 [facility] Leukocytes [#/volume] correc bear for nucleated erythrocytes in Blood by Automated counon 04-19-2024 WBC corrected for nucl RBC Auto (Bld) [#/Vol] 7.1 10 3/uL 4.0-11.0 [facility] MCH Auto (RBC) [Entitic mass ]on 04-19-2024 MCH (RBC) [Entitic mass] 30.5 pg 26.7-34.0 [facility] MCHC Auto (RBC) [Mass/Vol]on 04-19-2024 MCHC (RBC) [Mass/Vol] 32.5 g/dL 29.9-35.2 [facility] MCV Auto (RBC) [Entitic vol] on 04-19-2024 MCV (RBC) [Entitic vol] 93.7 fL 81.0-99.0 [facility] No Panel Informationon 04-19 25-Hydroxy Vitamin D Total 29.2 ng/mL [facility] Comment on above: <20 ng/mL Vit D defi cient20-<30 ng/mL Vit D fwnusexifbar10-455 ng/mL Vit D sufficient>100 ng/mL Potential Toxicity Absolute Basophils (Manual) 0.07 10 3/uL 0.00-0.10 [facility] Eosinophils # (Manual) 0.21 10 3/uL 0.00-0.70 [facility] Lymphocytes # (Manual) 2.55 10 3/uL 1.20-3.80 [facility] Monocytes # (Manual) 0.07 10 3/uL Low 0.30-0.80 [facility] Parathyroid Hormone (Intact) 30 pg/mL 15-65 [facility] Comment on above: Performed at: [facility] [place] [id number] Director: Roshan Swan PhD, Phone: [phone] Reactive Lymphocytes 0.49 [facility] Reactive Lymphocytes 7.0 % [facility] Segmented Neutrophils # (Manual) 3.69 10 3/uL 1.4-6.5 [facility] Platelet mean volume Auto (B ld) [Entitic vol]on 04-19-2024 Platelet mean volume (Bld) [Entitic vol] 10.1 fL 9.5-13.5 [facility] Platelets Auto (Bld) [#/Vol] on 04-19-2024 Platelets (Bld) [#/Vol] 172 10 3/uL 150-450 [facility] RBC Auto (Bld) [#/Vol]on RBC (Bld) [#/Vol] 4.79 10 6/uL 4.20-5.40 [facility] Segmented neutrophils/100 WB C Manual cnt (Bld)on 04-19-2024 Segmented neutrophils/100 WBC (Bld) 52.0 % [facility] Serum or plasma albumin/glob ulin mass ratioon 04-19-2024 Albumin/Globulin [Mass ratio] 1.0 {ratio} [facility] Serum or plasma anion gap de terminationon 04-19-2024 Anion gap [Moles/Vol] 9.7 mmol/L [facility] Estimated glomerular filtrat ion rate (GFR) non- Americanon 02-08-2024 GFR/1.73 sq M.predicted among non-blacks MDRD (S/P/Bld) [Vol rate/Area] 60 mL/min/{1.73_m2} >=60 [facility] Globulin Calc (S) [Mass/Vol] on 02-08-2024 Globulin (S) [Mass/Vol] 3.3 g/dL [facility] HbA1c HPLC (Bld) [Mass fract ion]on 02-08-2024 HbA1c (Bld) [Mass fraction] 6.9 % [facility] - Chemistry and C hemistry - challengeon 02-08-2024 Albumin [Mass/Vol] 3.3 g/dL Low 3.4-5.0 [facility] ALP [Catalytic activity/Vol] 119 U/L High 46-116 [facility] ALT [Catalytic activity/Vol] 32 U/L 14-59 [facility] AST [Catalytic activity/Vol] 20 U/L 15-37 [facility] Bilirubin [Mass/Vol] 0.7 mg/dL 0.2-1.0 [facility] Calcium [Mass/Vol] 9.5 mg/dL 8.5-10.1 [facility] Chloride [Moles/Vol] 105 mmol/L 98-107 [facility] CO2 [Moles/Vol] 30.9 mmol/L 21.0-32.0 [facility] Creatinine [Mass/Vol] 0.92 mg/dL 0.55-1.02 [facility] GFR/1.73 sq M.predicted MDRD (S/P/Bld) [Vol rate/Area] mL/min/{1.73_m2} >=60 [facility] Glucose [Mass/Vol] 110 mg/dL High 74-106 [facility] Magnesium [Mass/Vol] 1.8 mg/dL 1.8-2.4 [facility] Potassium [Moles/Vol] 3.9 mmol/L 3.5-5.1 [facility] Protein [Mass/Vol] 6.6 g/dL 6.4-8.2 [facility] Sodium [Moles/Vol] 142 mmol/L 136-145 [facility] Urea nitrogen [Mass/Vol] 21.0 mg/dL High 7.0-18.0 [facility] Urea nitrogen/Creatinine [Mass ratio] 22.8 mg/mg [facility] Serum or plasma albumin/glob ulin mass ratioon 02-08-2024 Albumin/Globulin [Mass ratio] 1.0 {ratio} [facility] Serum or plasma anion gap de terminationon 02-08-2024 Anion gap [Moles/Vol] 10.0 mmol/L [facility] VAGINITIS PANEL PCRon 2023 VAGINITIS PANEL PCR [...] presentation to determine patient diagnosis. Normal [facility] Comment on above: Performed By: #### V PPCR #### [facility] ([id number]) [address], [address] [place] [address] TRANSFERRINon 01-12-2023 Transferrin [Mass/Vol] 234 mg/dL Normal 192-364 [facility] Comment on above: Performed By: #### P OCGLUC #### [facility] [address] [place] [address] Dr. Demetrio Kan CBC AUTO DIFFon 01-11-2023 BASO # 0.1 103/ul Normal 0.0-0.1 [facility] Comment on above: Performed By: #### C BC, RETIC #### [facility] [address] [place] [address] Dr. Demetrio Kan Basophils/100 WBC (Bld) 0.8 % Normal 0.2-2.0 [facility] Comment on above: Performed By: #### C BC, RETIC #### [facility] [address] [place] [address] Dr. Demetrio Kan EO # 0.1 103/ul Normal 0.0-0.7 [facility] Comment on above: Performed By: #### C BC, RETIC #### [facility] [address] [place] [address] Dr. Demetrio Kan Eosinophils/100 WBC (Bld) 1.1 % Normal 0.9-7.0 [facility] Comment on above: Performed By: #### C BC, RETIC #### [facility] [address] [place] [address] Dr. Demetrio Kan Erythrocyte distribution width (RBC) [Ratio] 14.6 % Normal 11.0-15.0 [facility] Comment on above: Performed By: #### C BC, RETIC #### [facility] [address] [place] [address] Dr. Demetrio Kan Hematocrit (Bld) [Volume fraction] 39.4 % Normal 36.0-48.0 [facility] Comment on above: Performed By: #### C BC, RETIC #### [facility] [address] [place] [address] Dr. Demetrio Kan Hemoglobin (Bld) [Mass/Vol] 12.6 g/dL Normal 12.0-16.0 [facility] Comment on above: Performed By: #### C BC, RETIC #### [facility] [address] [place] [address] Dr. Demetrio Kan IG # 0.05 10e3/ul Critically high 0.00-0.03 [facility] Comment on above: Performed By: #### C BC, RETIC #### [facility] [address] [address] [address] Demetrio Kan IG % 0.6 % Critically high 0.0-0.5 [facility] Comment on above: Performed By: #### C BC, RETIC #### [facility] [address] [address] [address] Demetrio Kan LYMPH # 1.2 103/ul Normal 1.2-3.8 [facility] Comment on above: Performed By: #### C BC, RETIC #### [facility] [address] [address] [address] Demetrio Kan Lymphocytes/100 WBC (Bld) 14.3 % Critically low 20.5-60.0 [facility] Comment on above: Performed By: #### C BC, RETIC #### [facility] [address] [place] [address] [address] Demetrio Kan MANUAL DIFF REQ NO Normal [facility] Comment on above: Performed By: #### C BC, RETIC #### [facility] [address] [address] [address] Demetrio Kan MCH (RBC) [Entitic mass] 31.0 pg Normal 26.7-34.0 [facility] Comment on above: Performed By: #### C BC, RETIC #### [facility] [address] [address] [address] Demetrio Kan MCHC (RBC) [Mass/Vol] 32.0 g/dL Normal 29.9-35.2 [facility] Comment on above: Performed By: #### C BC, RETIC #### [facility] [address] [address] [address] Demetrio Kan MCV (RBC) [Entitic vol] 97.0 fL Normal 81.0-99.0 [facility] Comment on above: Performed By: #### C BC, RETIC #### [facility] [address] [place] [address] [address] Demetrio Kan MONO # 0.7 103/ul Normal 0.3-0.8 [facility] Comment on above: Performed By: #### C BC, RETIC #### [facility] [address] [place] [address] Dr. Demetrio Kan Monocytes/100 WBC (Bld) 8.7 % Normal 1.7-12.0 [facility] Comment on above: Performed By: #### C BC, RETIC #### [facility] [address] [place] [address] Dr. Demetrio Kan NEUT # 6.3 103/ul Normal 1.4-6.5 [facility] Comment on above: Performed By: #### C BC, RETIC #### [facility] [address] [place] [address] Dr. Demetrio Kan Neutrophils/100 WBC (Bld) 74.5 % Normal 43.0-75.0 [facility] Comment on above: Performed By: #### C BC, RETIC #### [facility] [address] [place] [address] Dr. Demetrio Kan Platelet mean volume (Bld) [Entitic vol] 9.6 fL Normal 9.5-13.5 [facility] Comment on above: Performed By: #### C BC, RETIC #### [facility] [address] [place] [address] Dr. Demetrio Kan PLT 275 103/ul Normal 150-[address] [facility] Comment on above: Performed By: #### C BC, RETIC #### [facility] [address] [place] [address] Dr. Demetrio Kan RBC 4.06 106/ul Critically low 4.20-5.40 [facility] Comment on above: Performed By: #### C BC, RETIC #### [facility] [address] [place] [address] Dr. Demetrio Kan WBC 8.5 103/ul Normal 4.0-11.[address] [facility] Comment on above: Performed By: #### C BC, RETIC #### [facility] [address] [place] [address] Dr. Demetrio Kan FERRITINon 01-11-2023 Ferritin [Mass/Vol] 323.0 ng/mL Critically high 8.0-252.0 [facility] Comment on above: Performed By: #### C MP, BNP, CMADM #### [facility] [address] [place] [address] Dr. Demetrio Kan IRON AND TIBCon 01-11-2023 % SATURATION 28.6 % Normal [facility] Comment on above: Performed By: #### C MP, BNP, CMADM #### [facility] [address] [place] [address] Dr. Demetrio Kan Iron [Mass/Vol] 79.0 ug/dL Normal 50.0-170.0 [facility] Comment on above: Performed By: #### C MP, BNP, CMADM #### [facility] [address] [place] [address] Dr. Demetrio Kan TIBC DIRECT 276.0 ug/dL Normal 250.0-450.0 [facility] Comment on above: Performed By: #### C MP, BNP, CMADM #### [facility] [address] [place] [address] Dr. Demetrio Kan RETICULOCYTEon 01-11-2023 RETIC 1.71 % Normal 0.60-3.[address] [facility] Comment on above: Performed By: #### C BC, RETIC #### [facility] [address] [place] [address] Dr. Demetrio Kan VIT B12 AND FOLATEon 023 Cobalamin (Vitamin B12) [Mass/Vol] 771.0 pg/mL Normal 193.0-986.0 [facility] Comment on above: Performed By: #### P OCGLUC #### [facility] [address] [place] [address] Dr. Demetrio Kan FOLATE 10.00 ng/mL Normal 8.60-58.90 [facility] Comment on above: Performed By: #### P OCGLUC #### [facility] [address] [place] [address] Dr. Demetrio Kan CULTURE SPUTUMon 01-01-2023 CULTURE [...] Trimethoprim/Sulfame thoxazole <=20 S F Normal [facility] Comment on above: Performed By: #### S PUTCX ####[facility] Rhegjeyps[address] [place], [place] [address]Dr. Carolynejosé miguel Kan CBC W MANUAL DIFFon 01-01-20 23 ATYPICAL LYMPH # Normal [facility] Comment on above: Performed By: #### C JESSE ####[facility] U[address] [place], [place] [address]Dr. Carolynejosé miguel Kan ATYPICAL LYMPH % Normal [facility] Comment on above: Performed By: #### C JESSE ####[facility] Rmxisjszzj[address] [place], [place] [address]Dr. Carolynelan Kan BAND # 0.0 103/ul Normal 0.0-0.[address] [facility] Comment on above: Performed By: #### C JESSE ####[facility] Gjtilplaym[address] [place], [place] [address]Dr. Carolynelan Kan BAND % 0 % Normal 0-[address] [facility] Comment on above: Performed By: #### C JESSE ####[facility] [address] [place] [address]Dr. Demetrio Kan BASOM # 0.00 103/ul Normal 0.00-0.[address] [facility] Comment on above: Performed By: #### C BCMAN ####[facility] [address]rrr[address] [place] [address]Dr. Demetrio Kan BASOM % 0.0 % Critically low 0.2-2.0 [facility] Comment on above: Performed By: #### C BCMAN ####[facility] [address]js[address] [place] [address]Dr. Demetrio Kan BLAST # Normal [facility] Comment on above: Performed By: #### C BCMAN ####[facility] Lcofyvxabs[address] [place], [place] [address]Dr. Demetrio Kan BLAST % Normal [facility] Comment on above: Performed By: #### C BCTEDDY ####[facility] Zvpyg[address]aiq[address] [place], [place] [address]Dr. Demetrio Kan CORRECTED WBC Normal 4.0-11.0 [facility] Comment on above: Performed By: #### C BCMAN ####[facility] Xddibwgygz89[address] [place], [place] [address]Dr. Demetrio Kan EOS # 0.00 103/ul Normal 0.00-0.[address] [facility] Comment on above: Performed By: #### C BCMAN ####[facility] Ijndzaiypc[address] [place], [place] [address]Dr. Demetrio Kan EOS% 0.0 % Critically low 0.9-7.0 [facility] Comment on above: Performed By: #### C BCMAN ####[facility] Klqzzyyjhg[address] [place], [place] [address]Dr. Demetrio Kan HCT 32.1 % Critically low 36.0-48.0 [facility] Comment on above: Performed By: #### C BCMAN ####[facility] Cnubwfefqh[address] [place], [place] [address]Dr. Demetrio Kan HGB 10.4 g/dl Critically low 12.0-16.0 [facility] Comment on above: Performed By: #### C JESSE ####[facility] Ux[address]jftbgl78[address] [place], [place] [address]Kh. Demetrio Kan LYMPHM # 0.46 103/ul Critically low 1.20-3.80 [facility] Comment on above: Performed By: #### C JESSE ####[facility] [address]jeshi[address] [place] [address]Dr. Demetrio Kan LYMPHM% 3.0 % Critically low 20.5-60.0 [facility] Comment on above: Performed By: #### C JESSE ####[facility] Qjaxouewmo[address] [place] [address]Dr. Demetrio Kan MCH 30.1 pg Normal 26.7-34.0 [facility] Comment on above: Performed By: #### Chantel MOLINA ####[facility] Zqdopoihha4[address] [place] [address]Dr. Demetrio Kan MCHC 32.4 g/dl Normal 29.9-35.2 [facility] Comment on above: Performed By: #### Chantel MOLINA ####[facility] [address]wssbjx[address] [place] [address]Dr. Demetrio Kan MCV 93.0 fL Normal 81.0-99.0 [facility] Comment on above: Performed By: #### Chantel MOLINA ####[facility] Cidxtxzpvb[address] [place] [address]Dr. Demetrio Kan METAMYELOCYTE # Normal [facility] Comment on above: Performed By: #### Chantel MOLINA ####[facility] Lurgnjqohm35[address] [place] [address]Dr. Demetrio Kan METAMYELOCYTE % Normal [facility] Comment on above: Performed By: #### C JESSE ####[facility] Zrtamdiace[address] [place] [address]Dr. Demetrio Kan MONOM# 0.15 103/ul Critically low 0.30-0.80 [facility] Comment on above: Performed By: #### Chantel MOLINA ####[facility] Jauppvydtd[address] [place] [address]Dr. Demetrio Kan MONOM% 1.0 % Critically low 1.7-12.0 [facility] Comment on above: Performed By: #### C JESSE ####[facility] Kuuorjznzp[address] [place] [address]Dr. Demetrio Kan MPV 9.7 fL Normal 9.5-13.[address] [facility] Comment on above: Performed By: #### C JESSE ####[facility] Za[address]wumozk[address] [place] [address]Dr. Demetrio Kan MYELOCYTE # Normal [facility] Comment on above: Performed By: #### C JESSE ####[facility] Qqrsbaouyt05[address] [place] [address]Dr. Demetrio Kan MYELOCYTE % Normal [facility] Comment on above: Performed By: #### C JESSE ####[facility] Olzkwszbpk74[address] [place] [address]Dr. Demetrio Kan NRBC Normal [facility] Comment on above: Performed By: #### C JESSE ####[facility] Ksdbffgnqc9[address] [place] [address]Dr. Demetrio Kan PLT 249 103/ul Normal 150-[address] [facility] Comment on above: Performed By: #### C JESSE ####[facility] Wk[address]kmukof39[address] [place] [address]Dr. Demetrio Kan RBC 3.45 106/ul Critically low 4.20-5.40 [facility] Comment on above: Performed By: #### C JESSE ####[facility] Ufkdzhrkru[address] [place] [address]Dr. Demetrio Kan RDW 14.6 % Normal 11.0-15.[address] [facility] Comment on above: Performed By: #### C JESSE ####[facility] X[address]epdhkahe7[address] [place] [address]Dr. Demetrio Kan SEG # 14.59 103/ul Critically high 1.40-6.50 [facility] Comment on above: Performed By: #### C JESSE ####[facility] [address]ho[address] [place] [address]Dr. Demetrio Kan SEG % 96.0 % Critically high 43.0-75.0 [facility] Comment on above: Performed By: #### C BCMAN ####[facility] Elizqldhfq9363 [place], [place] [address]Dr. Demetrio Kan WBC 15.2 103/ul Critically high 4.0-11.0 [facility] Comment on above: Performed By: #### C BCMAN ####[facility] Us[address]gfqcyd8980 [place], [place] [address]PcPham Kan POINT OF CARE GLUCOSEon 03-3 Glucose [Mass/Vol] 294 mg/dL Critically high 74-106 [facility] Comment on above: Performed By: #### C MP, BNP, CMADM #### [facility] [address] [place] [address] [address] Demetrio Kan Glucose [Mass/Vol] 252 mg/dL Critically high 74-106 [facility] Comment on above: Performed By: #### P OCGLUC #### [facility] [address] [place] [address] [address] Demetrio Kan PROF 14(COMP METB)on 023 Albumin [Mass/Vol] 1.8 g/dL Critically low 3.4-5.0 [facility] Comment on above: Performed By: #### C MP, BNP, CMADM #### [facility] [address] [place] [address] [address] Demetrio Kan Albumin/Globulin [Mass ratio] 0.5 {ratio} Normal [facility] Comment on above: Performed By: #### C MP, BNP, CMADM #### [facility] [address] [place] [address] [address] Demetrio Kan ALP [Catalytic activity/Vol] 101 U/L Normal 46-116 [facility] Comment on above: Performed By: #### C MP, BNP, CMADM #### [facility] [address] [place] [address] [address] Demetrio Kan ALT [Catalytic activity/Vol] 15 U/L Normal 14-59 [facility] Comment on above: Performed By: #### C MP, BNP, CMADM #### [facility] [address] [place] [address] [address] Demetrio Kan Anion gap [Moles/Vol] 9.7 mmol/L Normal [facility] Comment on above: Performed By: #### C MP, BNP, CMADM #### [facility] [address] [place] [address] [address] Demetrio Kan AST [Catalytic activity/Vol] 13 U/L Critically low 15-[address] [facility] Comment on above: Performed By: #### C MP, BNP, CMADM #### [facility] [address] [place] [address] [address] Demetrio Kan Bilirubin [Mass/Vol] 0.2 mg/dL Normal 0.2-1.0 [facility] Comment on above: Performed By: #### C MP, BNP, CMADM #### [facility] [address] [address] [address] Demetrio Kan Calcium [Mass/Vol] 9.0 mg/dL Normal 8.5-10.1 [facility] Comment on above: Performed By: #### C MP, BNP, CMADM #### [facility] [address] [place] [address] [address] Demetrio Kan Chloride [Moles/Vol] 105 mmol/L Normal 98-[address] [facility] Comment on above: Performed By: #### C MP, BNP, CMADM #### [facility] [address] [place] [address] [address] Demetrio Kan CO2 [Moles/Vol] 27.8 mmol/L Normal 21.0-32.0 [facility] Comment on above: Performed By: #### C MP, BNP, CMADM #### [facility] [address] [place] [address] Dr. Demetrio Kan Creatinine [Mass/Vol] 0.82 mg/dL Normal 0.55-1.02 [facility] Comment on above: Performed By: #### C MP, BNP, CMADM #### [facility] [address] [place] [address] [address] Demetrio Kan EGFR-AF [place] >60 Normal >=60 [facility] Comment on above: Performed By: #### C MP, BNP, CMADM #### [facility] [address] [place] [address] Dr. Demetrio Kan EGFR-NON AF [place] >60 Normal >=60 [facility] Comment on above: Performed By: #### C MP, BNP, CMADM #### [facility] [address] [place] [address] Dr. Demetrio Kan Globulin (S) [Mass/Vol] 3.8 g/dL Normal [facility] Comment on above: Performed By: #### C MP, BNP, CMADM #### [facility] [address] [place] [address] Dr. Demetrio Kan Glucose [Mass/Vol] 268 mg/dL Critically high 74-106 [facility] Comment on above: Performed By: #### C MP, BNP, CMADM #### [facility] [address] [place] [address] Dr. Demetrio Kan Potassium [Moles/Vol] 4.5 mmol/L Normal 3.5-5.1 [facility] Comment on above: Performed By: #### C MP, BNP, CMADM #### [facility] [address] [place] [address] Dr. Demetrio Kan Protein [Mass/Vol] 5.6 g/dL Critically low 6.4-8.2 [facility] Comment on above: Performed By: #### C MP, BNP, CMADM #### [facility] [address] [place] [address] Dr. Demetrio Kan Sodium [Moles/Vol] 138 mmol/L Normal 136-145 [facility] Comment on above: Performed By: #### C MP, BNP, CMADM #### [facility] [address] [place] [address] Dr. Demetrio Kan Urea nitrogen [Mass/Vol] 30.0 mg/dL Critically high 7.0-18.0 [facility] Comment on above: Performed By: #### C MP, BNP, CMADM #### [facility] [address] [place] [address] [address] Demetrio Kan Urea nitrogen/Creatinine [Mass ratio] 36.6 mg/mg Normal [facility] Comment on above: Performed By: #### C MP, BNP, CMADM #### [facility] [address] [place] [address] [address] Demetrio Kan XR CHEST 1 Von 12-31-2022 XR CHEST 1 V EXAM: XR CHEST 1 V HISTORY: SHORTNESS OF BREATH COMPARISON: 12/29/2022. TECHNIQUE: Chest X-ray AP, 1 view. FINDINGS: Support devices: None. 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 Persistent bibasilar airspace opacities. Blunting of costophrenic angles likely represents airspace disease, trace/small effusions and be difficult to exclude. No evidence of pneumothorax. Heart and mediastinum: Stable contours compared to prior examination. Bones: No acute abnormality identified. IMPRESSION: Persistent bibasilar airspace disease/consolidatio ns. Electronically authenticated by: JOCY MUÑOZ Date: 2022-12-31 08:22 Normal [address] [facility] BLOOD GASES BTYon 12-30-2022 02 MODE NASAL CANNULA Normal [facility] Comment on above: Performed By: #### A BG ####[facility] [address] [place] [address]DrPham Kan ALLENS TEST Positive Normal [facility] Comment on above: Performed By: #### A BG ####[facility] Bmtrmmlfnd[address] [place] [address]Dr. Demetrio Kna Base excess Calc (Bld) [Moles/Vol] 6.0 mmol/L Critically high -2.0-2.[address] [facility] Comment on above: Performed By: #### A BG ####[facility] [address]emm[address] [place] [address]DrPham Kan BIPAP PRESSURE Normal [facility] Comment on above: Performed By: #### A BG ####[facility] [address]yd[address]fnh[address] [place] [address]DrPham Kan CPAP Normal [facility] Comment on above: Performed By: #### A BG ####[facility] [address]udbks[address] [place] [address]Dr. Demetrio Kan FIO2 Normal [facility] Comment on above: Performed By: #### A BG ####[facility] [address]venwzmszs[address] [place] [address]Dr. Demetrio Kan HCO3 (Bld) [Moles/Vol] 28.7 mmol/L Critically high 22.0-26.[address] [facility] Comment on above: Performed By: #### A BG ####[facility] F[address]ks[address] [place], [place] [address]Dr. Demetrio Kan LPM 6 Normal [address] [facility] Comment on above: Performed By: #### A BG ####[facility] [address]exuhzbajc[address] [place], [place] [address]Dr. Demetrio Kan MINUTE VOLUME Normal [facility] Comment on above: Performed By: #### A BG ####[facility] Rsbbvoefwe[address] [place], [place] [address]Dr. Demetrio Kan Oxygen (Bld) [Partial pressure] 102.0 mm[Hg] Critically high 80.0-100.[address] [facility] Comment on above: Performed By: #### A BG ####[facility] [address]dzwqbglre[address] [place], [place] [address]Dr. Demetrio Kan Oxygen saturation in Blood 99.1 % Normal 95.0-100.[address] [facility] Comment on above: Performed By: #### A BG ####[facility] Dawpsbpwjd27[address] [place], [place] [address]Dr. Demetrio Kan PCO2 34.5 mmHg Critically low 35.0-45.0 [facility] Comment on above: Performed By: #### A BG ####[facility] Oqpigfqdal[address] [place], [place] [address]Dr. Demetrio Kan PEEP Normal [facility] Comment on above: Performed By: #### A BG ####[facility] [address]reycdrv9[address] [place], [place] [address]Dr. Demetrio Kan pH (Bld) 7.529 [pH] Critically high 7.350-7.450 [facility] Comment on above: Result Comment: Prev iously reported as: 7.520 On 12/30/2022 07:13 By LM4 Performed By: #### A BG ####[facility] [address]xyuqttm[address] [place] [address]Dr. Demetrio Kan PIP [facility] Comment on above: Performed By: #### A BG ####[facility] Eoqkkxgbtx9[address] [place] [address]Dr. Demetrio Kan PS [facility] Comment on above: Performed By: #### A BG ####[facility] Lwpchzeaya[address] [place] [address]Dr. Demetrio Kan PUNCTURE SITE RR Normal [facility] Comment on above: Performed By: #### A BG ####[facility] [address]opqjdhoy[address] [place], [place] [address]Dr. Demetrio Kan RATE [facility] Comment on above: Performed By: #### A BG ####[facility] [address]eypxsyozp[address] [place], [place] [address]Dr. Demetrio Kan VENT MODE [facility] Comment on above: Performed By: #### A BG ####[facility] Knjwanrdre[address] [place], [place] [address]Dr. Demetrio Kan [place] [facility] Comment on above: Performed By: #### A BG ####[facility] Vtkohnvtvd92[address] [place], [place] [address]Dr. Demetrio Kan CBC W MANUAL DIFFon 12-31-19 23 ATYPICAL LYMPH # Normal [facility] Comment on above: Performed By: #### C BCMAN ####[facility] Efhnbewoap[address] [place] [address]Dr. Demetrio Kan ATYPICAL LYMPH % Normal [facility] Comment on above: Performed By: #### C BCMAN ####[facility] Aupkxebbpb78[address] [place] [address]Dr. Demetrio Kan BAND # 0.0 103/ul Normal 0.0-0.3 [facility] Comment on above: Performed By: #### C BCMAN ####[facility] Lytsmxtgzc[address] [place] [address]Dr. Demetrio Kan BAND % 0 % Normal 0-[address] [facility] Comment on above: Performed By: #### C BCMAN ####[facility] Rfajfrqddw6594 [place] [address]Dr. Demetrio Kan BASOM # 0.00 103/ul Normal 0.00-0.[address] [facility] Comment on above: Performed By: #### C BCMAN ####[facility] [address]ijuhwflq[address] [place] [address]Dr. Yijosé miguel Kan BASOM % 0.0 % Critically low 0.2-2.0 [facility] Comment on above: Performed By: #### C BCTEDDY ####[facility] Toflntsjjw24[address] [place] [address]Dr. Yijosé miguel Kan BLAST # Normal [facility] Comment on above: Performed By: #### C BCTEDDY ####[facility] Skuekkedub[address] [place], [place] [address]Dr. Yijosé miguel Kan BLAST % Normal [facility] Comment on above: Performed By: #### C BCTEDDY ####[facility] Ccdgibigci[address] [place], [place] [address]Dr. Demetrio Kan CORRECTED WBC Normal 4.0-11.0 [facility] Comment on above: Performed By: #### C BCTEDDY ####[facility] Jbrseldcjg07[address] [place] [address]Dr. Yijosé miguel Kan EOS # 0.00 103/ul Normal 0.00-0.[address] [facility] Comment on above: Performed By: #### C BCTEDDY ####[facility] Obtnmesljw[address] [place], [place] [address]Dr. Demetrio Kan EOS% 0.0 % Critically low 0.9-7.0 [facility] Comment on above: Performed By: #### C BCTEDDY ####[facility] Petvqdrdis[address] [place], [place] [address]Dr. Demetrio Kan HCT 30.2 % Critically low 36.0-48.0 [facility] Comment on above: Performed By: #### C JESSE ####[facility] Lsprhusdvt1259 [place], [place] [address]Ly. Demetrio Kan HGB 9.9 g/dl Critically low 12.0-16.0 [facility] Comment on above: Performed By: #### C JESSE ####[facility] Mpbzudhrqf7565 [place], [place] [address]Hw. Demetrio Kan LYMPHM # 0.14 103/ul Critically low 1.20-3.80 [facility] Comment on above: Performed By: #### C JESSE ####[facility] Pwhlbfqesr3367 [place], [place] [address]So. Demetrio Kan LYMPHM% 1.0 % Critically low 20.5-60.0 [facility] Comment on above: Performed By: #### C JESSE ####[facility] Jfroqisqey25[address] [place] [address]Dr. Demetrio Kan MCH 30.1 pg Normal 26.7-34.0 [facility] Comment on above: Performed By: #### C JESSE ####[facility] Nmjcegzfxg8329 [place] [address]Dr. Demetrio Kan MCHC 32.8 g/dl Normal 29.9-35.2 [facility] Comment on above: Performed By: #### C JESSE ####[facility] Ncjkmaibac036[address] [place] [address]Dr. Demetrio Kan MCV 91.8 fL Normal 81.0-99.0 [facility] Comment on above: Performed By: #### C JESSE ####[facility] Ikqkhttooj0643 [place], [place] [address]Se. Demetrio Kan METAMYELOCYTE # Normal [facility] Comment on above: Performed By: #### C JESSE ####[facility] Fienhnajup6368 [place], [place] [address]Ok. Demetrio Kan METAMYELOCYTE % Normal [facility] Comment on above: Performed By: #### C JESSE ####[facility] Thkyunksym6820 [place] [address]Dr. Demetrio Kan MONOM# 0.00 103/ul Critically low 0.30-0.80 [facility] Comment on above: Performed By: #### C JESSE ####[facility] Pbcllkphnl5120 [place] [address]Dr. Demetrio Kan MONOM% 0.0 % Critically low 1.7-12.0 [facility] Comment on above: Performed By: #### C JESSE ####[facility] Cpsgvjakbm4550 [place] [address]Dr. Demetrio Kan MPV 9.9 fL Normal 9.5-13.[address] [facility] Comment on above: Performed By: #### C JESSE ####[facility] [address]dfiozqlzj[address] [place], [place] [address]Dr. Demetrio Kan MYELOCYTE # Normal [facility] Comment on above: Performed By: #### C JESSE ####[facility] Zonittbfzw[address] [place], [place] [address]Dr. Demetrio Kan MYELOCYTE % Normal [facility] Comment on above: Performed By: #### C JESSE ####[facility] Nmsjpbxouu[address] [place], [place] [address]Dr. Demetrio Kan NRBC Normal [facility] Comment on above: Performed By: #### C JESSE ####[facility] Fgadxttiqx4[address] [place] [address]Dr. Demetrio Kan PLT 200 103/ul Normal 150-[address] [facility] Comment on above: Performed By: #### C JESSE ####[facility] Gygxbdylih2961 [place] [address]Dr. Demetrio Kan RBC 3.29 106/ul Critically low 4.20-5.40 [facility] Comment on above: Performed By: #### C JESSE ####[facility] [address]zixsukikq[address] [place] [address]Dr. Demetrio Kan RDW 14.3 % Normal 11.0-15.0 [facility] Comment on above: Performed By: #### C JESSE ####[facility] [address]loomthssb3438 [place], [place] [address]LaPham Kan SEG # 13.76 103/ul Critically high 1.40-6.50 [facility] Comment on above: Performed By: #### C BCMAN ####[facility] Scqstwghrk9611 [place], [place] [address]ZcDr. Demetrio Kan SEG % 99.0 % Critically high 43.0-75.0 [facility] Comment on above: Performed By: #### C JESSE ####[facility] Atoxvqvgha4206 [place], [place] [address]YcPham Kan WBC 13.9 103/ul Critically high 4.0-11.0 [facility] Comment on above: Performed By: #### C JESSE ####[facility] Kmajavexet34[address] [place], [place] [address]EvDr. Demetrio Kan POINT OF CARE GLUCOSEon 12-03 Glucose [Mass/Vol] 281 mg/dL Critically high 74-106 [facility] Comment on above: Performed By: #### P OCGLUC #### [facility] [address] [address] [address] Demetrio Kan Glucose [Mass/Vol] 219 mg/dL Critically high 74-106 [facility] Comment on above: Performed By: #### C MP, BNP, CMADM #### [facility] [address] [address] [address] Demetrio Kan Glucose [Mass/Vol] 333 mg/dL Critically high 74-106 [facility] Comment on above: Performed By: #### P OCGLUC #### [facility] [address] [address] [address] Demetrio Kan Glucose [Mass/Vol] 265 mg/dL Critically high 74-106 [facility] Comment on above: Performed By: #### C MP, BNP, CMADM #### [facility] [address] [address] [address] Demetrio Kan PROF 14(COMP METB)on 023 Albumin [Mass/Vol] 1.7 g/dL Critically low 3.4-5.0 [facility] Comment on above: Performed By: #### C MP ####[facility] [address] [place] [address]Dr. Demetrio Lucius Albumin/Globulin [Mass ratio] 0.4 {ratio} Normal [facility] Comment on above: Performed By: #### C MP ####[facility] [address] [place] [address]Dr. Demetrio Lucius ALP [Catalytic activity/Vol] 103 U/L Normal 46-116 [facility] Comment on above: Performed By: #### C MP ####[facility] [address] [place] [address]Dr. Demetrio Lucius ALT [Catalytic activity/Vol] 11 U/L Critically low 14-59 [facility] Comment on above: Performed By: #### C MP ####[facility] Ubzb[address] [place], [place] [address]Dr. Carolynejosé miguel Lucius Anion gap [Moles/Vol] 8.8 mmol/L Normal [facility] Comment on above: Performed By: #### C MP ####[facility] Tstry[address] [place], [place] [address]Dr. Demetrio Kan AST [Catalytic activity/Vol] 10 U/L Critically low 15-37 [facility] Comment on above: Performed By: #### C MP ####[facility] Myylgvhagj[address] [place], [place] [address]Dr. Demetrio Kan Bilirubin [Mass/Vol] 0.3 mg/dL Normal 0.2-1.0 [facility] Comment on above: Performed By: #### C MP ####[facility] Zrboxldvvt[address] [place], [place] [address]Dr. Demetrio Lucius Calcium [Mass/Vol] 8.8 mg/dL Normal 8.5-10.1 [facility] Comment on above: Performed By: #### C MP ####[facility] [address] [address]Dr. Demetrio Kan Chloride [Moles/Vol] 103 mmol/L Normal 98-107 [facility] Comment on above: Performed By: #### C MP ####[facility] [address] [place] [id number]. Demetrio Kan CO2 [Moles/Vol] 30.9 mmol/L Normal 21.0-32.0 [facility] Comment on above: Performed By: #### C MP ####[facility] [address] [place] [address] [address]Dr. Demetrio Kan Creatinine [Mass/Vol] 0.69 mg/dL Normal 0.55-1.[address] [facility] Comment on above: Performed By: #### C MP ####[facility] [address]rervoqd[address] [place] [address] [address]Dr. Demetrio Kan EGFR-AF [place] >60 Normal >=60 [facility] Comment on above: Performed By: #### C MP ####[facility] Mnijmqwpne[address] [place], [place] [address]Dr. Demetrio Kan EGFR-NON AF [place] >60 Normal >=[address] [facility] Comment on above: Performed By: #### C MP ####[facility] Yeoambpmnq46[address] [place], [place] [address]Dr. Demetrio Kan Globulin (S) [Mass/Vol] 3.9 g/dL Normal [facility] Comment on above: Performed By: #### C MP ####[facility] Zijjxanhcl[address] [place], [place] [address]Dr. Demetrio Kan Glucose [Mass/Vol] 216 mg/dL Critically high 74-106 [facility] Comment on above: Performed By: #### C MP ####[facility] Yvqdwqsbuy[address] [place], [place] [address]Dr. Demetrio Kan Potassium [Moles/Vol] 2.7 mmol/L Critically low 3.5-5.1 [facility] Comment on above: Performed By: #### C MP ####[facility] Rfwriyvxbz[address] [place], [place] [address]Dr. Demetrio Kan Protein [Mass/Vol] 5.6 g/dL Critically low 6.4-8.2 [facility] Comment on above: Performed By: #### C MP ####[facility] [address] [place] [id number] Kan Sodium [Moles/Vol] 140 mmol/L Normal 136-145 [facility] Comment on above: Performed By: #### C MP ####[facility] [address]oujdwiv[address] [place] [address]Dr. Demetrio Kan Urea nitrogen [Mass/Vol] 16.0 mg/dL Normal 7.0-18.0 [facility] Comment on above: Performed By: #### C MP ####[facility] [address]hxmbqmt[address] [place] [address]Dr. Demetrio Kan Urea nitrogen/Creatinine [Mass ratio] 23.2 mg/mg Normal [facility] Comment on above: Performed By: #### C MP ####[facility] [address]xcxsae[address] [place] [address]DrPham Kan BNPon 12-29-2022 Natriuretic peptide B (Bld) [Mass/Vol] 824.0 pg/mL Normal <=900.0 [facility] Comment on above: Performed By: #### C MP, BNP, CMADM #### [facility] [address] [address] [address] Demetrio Kan CARDIAC IGNACIA ADMITon 023 CK [Catalytic activity/Vol] 43 U/L Normal 26-192 [facility] Comment on above: Performed By: #### C MP, BNP, CMADM #### [facility] [address] [address] [address] Demetrio Kan CK.MB [Mass/Vol] 0.91 ng/mL Normal <=3.60 [facility] Comment on above: Performed By: #### C MP, BNP, CMADM #### [facility] [address] [address] [address] Demetrio aKn HSTROP 18.1 pg/mL Normal 4.0-51.3 [facility] Comment on above: Result Comment: CUT- OFF POINTS HAVE BEEN ESTABLISHED BASED ON THE FOURTH UNIVERSAL DEFINITIONS OF MYOCARDIAL INFARCTION. THE UPPER REFERENCE LIMIT (URL) OF TROPONIN, DEFINED THE 99TH PERCENTILE OF cTnI DISTRIBUTION IN A REFERENCE POPULATION, HAS BEEN CONFIRMED THE DECISION THRESHOLD FOR [place] DIAGNOSIS. Performed By: #### C MP, BNP, CMADM #### [facility] [address] [address] [address] Demetrio Kan KAVEH 63 ng/mL Normal 9-[address] [facility] Comment on above: Performed By: #### C MP, BNP, CMADM #### [facility] [address] [address] [address] Demetrio Kan CBC AUTO DIFFon 12-29-2022 BASO # 0.1 103/ul Normal 0.0-0.1 [facility] Comment on above: Performed By: #### C BC ####[facility] [address] [place] [address]DrPham Kan Basophils/100 WBC (Bld) 0.4 % Normal 0.2-2.0 [facility] Comment on above: Performed By: #### C BC ####[facility] R[address] [place], [place] [address]DrPham Kan EO # 0.1 103/ul Normal 0.0-0.7 [facility] Comment on above: Performed By: #### C BC ####[facility] [address]tt[address] [place] [address]DrPham Kan Eosinophils/100 WBC (Bld) 0.4 % Critically low 0.9-7.0 [facility] Comment on above: Performed By: #### C BC ####[facility] [address] [place] [address]DrPham Kan Erythrocyte distribution width (RBC) [Ratio] 14.1 % Normal 11.0-15.[address] [facility] Comment on above: Performed By: #### C BC ####[facility] [address]klss[address] [place] [address]DrPham Kan Hematocrit (Bld) [Volume fraction] 37.6 % Normal 36.0-48.0 [facility] Comment on above: Performed By: #### C BC ####[facility] [address]vemxws[address] [place], [place] [address]DrPham Kan Hemoglobin (Bld) [Mass/Vol] 12.4 g/dL Normal 12.0-16.0 [facility] Comment on above: Performed By: #### C BC ####[facility] [address] [place] [address]DrPham Kan IG # 0.12 10e3/ul Critically high 0.00-0.03 [facility] Comment on above: Performed By: #### C BC ####[facility] [address] [place] [address]DrPham Kan IG % 0.7 % Critically high 0.0-0.5 [facility] Comment on above: Performed By: #### C BC ####[facility] [address]cilpt[address] [place], [place] [address]DrPham Kan LYMPH # 0.4 103/ul Critically low 1.2-3.8 [facility] Comment on above: Performed By: #### C BC ####[facility] [address]wpdrefjhi[address] [place] [address]DrPham Kan Lymphocytes/100 WBC (Bld) 2.4 % Critically low 20.5-60.0 [facility] Comment on above: Performed By: #### C BC ####[facility] [address]ylh[address] [place] [address]DrPham Kan MANUAL DIFF REQ NO Normal [facility] Comment on above: Performed By: #### C BC ####[facility] [address] [place] [address]DrPham Kan MCH (RBC) [Entitic mass] 30.5 pg Normal 26.7-34.0 [facility] Comment on above: Performed By: #### C BC ####[facility] Mttrhxcaqx[address] [place] [address]DrPham Kan MCHC (RBC) [Mass/Vol] 33.0 g/dL Normal 29.9-35.[address] [facility] Comment on above: Performed By: #### C BC ####[facility] [address]rlaktv[address] [place] [address]DrPham Kan MCV (RBC) [Entitic vol] 92.6 fL Normal 81.0-99.[address] [facility] Comment on above: Performed By: #### C BC ####[facility] [address] [place] [address]DrPham Kan MONO # 1.0 103/ul Critically high 0.3-0.8 [facility] Comment on above: Performed By: #### C BC ####[facility] [address]ur[address] [place] [address]DrPham Kan Monocytes/100 WBC (Bld) 5.6 % Normal 1.7-12.[address] [facility] Comment on above: Performed By: #### C BC ####[facility] L[address]zypbc[address] [place], [place] [address]DrPham Kan NEUT # 16.1 103/ul Critically high 1.4-6.5 [facility] Comment on above: Performed By: #### C BC ####[facility] W[address]ys[address]nsjh[address] [place], [place] [address]DrPham Kan Neutrophils/100 WBC (Bld) 90.5 % Critically high 43.0-75.[address] [facility] Comment on above: Performed By: #### C BC ####[facility] Zvgjuqtolk[address] [place], [place] [address]DrPham Kan Platelet mean volume (Bld) [Entitic vol] 9.5 fL Normal 9.5-13.[address] [facility] Comment on above: Performed By: #### C BC ####[facility] Ecbltfksbh[address] [place], [place] [address]DrPham Kan PLT 245 103/ul Normal 150-[address] [facility] Comment on above: Performed By: #### C BC ####[facility] [address]zyn[address] [place], [place] [address]DrPham Kan RBC 4.06 106/ul Critically low 4.20-5.40 [facility] Comment on above: Performed By: #### C BC ####[facility] [address]yeigdua[address] [place], [place] [address]DrPham Kan WBC 17.7 103/ul Critically high 4.0-11.0 [facility] Comment on above: Performed By: #### C BC ####[facility] [address]our[address] [address]Dr. Demetrio Kan CBC W MANUAL DIFFon 12-30-19 23 ANISOCYTOSIS 1+ Normal [facility] Comment on above: Performed By: #### P OCGLUC #### [facility] [address] [address] [address] Demetrio Kan ATYPICAL LYMPH # Normal [facility] Comment on above: Performed By: #### P OCGLUC #### [facility] [address] [address] [address] Demetrio Kan ATYPICAL LYMPH % Normal [facility] Comment on above: Performed By: #### P OCGLUC #### [facility] [address] [address] [address] Demetrio Kan BAND # 0.7 103/ul Critically high 0.0-0.3 [facility] Comment on above: Performed By: #### P OCGLUC #### [facility] [address] [address] [address] Demetrio Kan BAND % 3 % Normal 0-5 [facility] Comment on above: Performed By: #### P OCGLUC #### [facility] [address] [address] [address] Demetrio Kan BASOM # 0.00 103/ul Normal 0.00-0.10 [facility] Comment on above: Performed By: #### P OCGLUC #### [facility] [address] [address] [address] Demetrio Kan BASOM % 0.0 % Critically low 0.2-2.0 [facility] Comment on above: Performed By: #### P OCGLUC #### [facility] [address] [address] [address] Demetrio Kan BLAST # Normal [facility] Comment on above: Performed By: #### P OCGLUC #### [facility] [address] [address] [address] Demetrio Kan BLAST % Normal [facility] Comment on above: Performed By: #### P OCGLUC #### [facility] [address] [address] [address] Demetrio Kan CORRECTED WBC Normal 4.0-11.0 [facility] Comment on above: Performed By: #### P OCGLUC #### [facility] [address] [address] [address] Demetrio Kan EOS # 0.00 103/ul Normal 0.00-0.70 [facility] Comment on above: Performed By: #### P OCGLUC #### [facility] [address] [address] [address] Demetrio Kan EOS% 0.0 % Critically low 0.9-7.0 [facility] Comment on above: Performed By: #### P OCGLUC #### [facility] [address] [address] [address] Demetrio Kan HCT 33.1 % Critically low 36.0-48.0 [facility] Comment on above: Performed By: #### P OCGLUC #### [facility] [address] [address] [address] Demetrio Kan HGB 11.1 g/dl Critically low 12.0-16.0 [facility] Comment on above: Performed By: #### P OCGLUC #### [facility] [address] [address] [address] Demetrio Kan LYMPHM # 0.95 103/ul Critically low 1.20-3.80 [facility] Comment on above: Performed By: #### P OCGLUC #### [facility] [address] [address] [address] Demetrio Kan LYMPHM% 4.0 % Critically low 20.5-60.0 [facility] Comment on above: Performed By: #### P OCGLUC #### [facility] [address] [address] [address] Demetrio Kan MCH 30.8 pg Normal 26.7-34.0 [facility] Comment on above: Performed By: #### P OCGLUC #### [facility] [address] [address] [address] Demetrio Kan MCHC 33.5 g/dl Normal 29.9-35.2 [facility] Comment on above: Performed By: #### P OCGLUC #### [facility] [address] [place] [address] Dr. Demetrio Kan MCV 91.9 fL Normal 81.0-99.0 [facility] Comment on above: Performed By: #### P OCGLUC #### [facility] [address] [address] [address] Demetrio Kan METAMYELOCYTE # Normal [facility] Comment on above: Performed By: #### P OCGLUC #### [facility] [address] [place] [address] Dr. Demetrio Kan METAMYELOCYTE % Normal [facility] Comment on above: Performed By: #### P OCGLUC #### [facility] [address] [place] [address] Dr. Demetrio Kan MONOM# 1.42 103/ul Critically high 0.30-0.80 [facility] Comment on above: Performed By: #### P OCGLUC #### [facility] [address] [place] [address] Dr. Demetrio Kan MONOM% 6.0 % Normal 1.7-12.0 [facility] Comment on above: Performed By: #### P OCGLUC #### [facility] [address] [place] [address] Dr. Demetrio Kan MPV 9.7 fL Normal 9.5-13.5 [facility] Comment on above: Performed By: #### P OCGLUC #### [facility] [address] [place] [address] Dr. Demetrio Kan MYELOCYTE # Normal [facility] Comment on above: Performed By: #### P OCGLUC #### [facility] [address] [place] [address] Dr. Demetrio Kan MYELOCYTE % Normal [facility] Comment on above: Performed By: #### P OCGLUC #### [facility] [address] [place] [address] Dr. Demetrio Kan NRBC Normal [facility] Comment on above: Performed By: #### P OCGLUC #### [facility] [address] [address] [address] Demetrio Kan PLT 235 103/ul Normal 150-450 [facility] Comment on above: Performed By: #### P OCGLUC #### [facility] [address] [address] [address] Demetrio Kan RBC 3.60 106/ul Critically low 4.20-5.40 [facility] Comment on above: Performed By: #### P OCGLUC #### [facility] [address] [address] [address] Demetrio Kan RDW 14.2 % Normal 11.0-15.0 [facility] Comment on above: Performed By: #### P OCGLUC #### [facility] [address] [address] [address] Demetrio Kan SEG # 20.62 103/ul Critically high 1.40-6.50 [facility] Comment on above: Performed By: #### P OCGLUC #### [facility] [address] [address] [address] Demetrio Kan SEG % 87.0 % Critically high 43.0-75.0 [facility] Comment on above: Performed By: #### P OCGLUC #### [facility] [address] [address] [address] Demetrio Kan WBC 23.7 103/ul Critically high 4.0-11.0 [facility] Comment on above: Performed By: #### P OCGLUC #### [facility] [address] [address] [address] Demetrio Kan CTA CHEST WO W [...] ARMAND PATEL Date: 2022-12-29 03:05 Normal [facility] CULTURE BLOODon 12-29-2022 Microscopic examination of blood, culture Culture Observations: NO GROWTH AT 5 DAYS. Normal [facility] Comment on above: Performed By: #### B LDCX2 ####[facility] [address] [place] [address]Dr. Demetrio Kan Performed By: #### B LDCX1 ####[facility] [address]ye[address] [place] [address]Dr. Demetrio Kan Covid-19 PCR (CVDTBH)on 12-02 SARS-CoV-2 (COVID-19) RNA BRUNO+probe Ql (Unsp spec) Not detected Normal NOT DETECTED [facility] Comment on above: Result Comment: When diagnostic [...] for this test is supported by the [employer] of Health and Human Service's declaration that [...] be used). Performed By: #### C VDTBH ####[facility] [address] [place] [address]Dr. Demetrio Kan INFLUENZA A AND B AGon 12-29 INFLUANEGH SEE BELOW Normal [facility] Comment on above: Result Comment: Nega tive for Flu A protein angiten. Infection due to Flu A cannot be ruled out. Flu A angiten in the sample may be below the detection limit of the test. Performed By: #### I NFLUAB ####[facility] [address] [place], [place] [address]Dr. Demetrio Kan INFLUBNEGH SEE BELOW Normal [facility] Comment on above: Result Comment: Nega tive for Flu B protein antigen. Infection due to Flu B cannot be ruled out. Flu B antigen in the sample may be below the detection limit of the test. Performed By: #### I NFLUAB ####[facility] [address] [place], [place] [address]Dr. Demetrio Kan INFLUENZA A AG Negative Normal NEGATIVE SEE COMMENT [facility] Comment on above: Performed By: #### I NFLUAB ####[facility] [address] [place], [place] [address]Dr. Demetrio Kan INFLUENZA B AG Negative Normal NEGATIVE SEE COMMENT [facility] Comment on above: Performed By: #### I NFLUAB ####[facility] [address] [place], [place] [address]DrPham Kan LACTATE/LACTIC ACIDon 2022 Lactate [Moles/Vol] 1.7 mmol/L Normal 0.4-2.0 [facility] Comment on above: Performed By: #### L ACT #### [facility] [address] [place] [address] Dr. Demetrio Kan LIPID PROFILEon 12-29-2022 CHOL-HDL RATIO NORM SEE BELOW Normal [facility] Comment on above: Result Comment: 3.3 - 4.4 LOW RISK 4.4 - 7.1 AVERAGE RISK 7.1 - 11.0 MODERATE RISK >11.0 HIGH RISK Performed By: #### P OCGLUC #### [facility] [address] [address] [address] Demetrio Kan Cholesterol [Mass/Vol] 98 mg/dL Normal <=200 [facility] Comment on above: Performed By: #### P OCGLUC #### [facility] [address] [address] [address] Demetrio Kan Cholesterol in HDL [Mass/Vol] 32 mg/dL Critically low 40-60 [facility] Comment on above: Performed By: #### P OCGLUC #### [facility] [address] [address] [address] Demetrio Kan Cholesterol in LDL [Mass/Vol] 53.4 mg/dL Normal [facility] Comment on above: Performed By: #### P OCGLUC #### [facility] [address] [address] [address] Demetrio Kan Cholesterol.total/Ch olesterol in HDL [Mass ratio] 3.1 {ratio} Normal [facility] Comment on above: Performed By: #### P OCGLUC #### [facility] [address] [address] [address] Demetrio Kan HDL NORMAL > or = 60 mg/dl - LOW CARDIOVASCULAR RISK <40 mg/dl - HIGH CARDIOVASCULAR RISK Normal [facility] Comment on above: Performed By: #### P OCGLUC #### [facility] [address] [address] [address] Demetrio Kan LDL CALC NORMAL SEE BELOW Normal [facility] Comment on above: Result Comment: <100 mg/dl OPTIMAL 100 - 129 mg/dl NEAR OR ABOVE OPTIMAL 130 - 159 mg/dl BORDERLINE HIGH 160 - 189 mg/dl HIGH >190 mg/dl VERY HIGH Performed By: #### P OCGLUC #### [facility] [address] [address] [address] Demetrio Kan Triglyceride [Mass/Vol] 63 mg/dL Normal <=150 [facility] Comment on above: Performed By: #### P OCGLUC #### [facility] [address] [address] [address] Demetrio Kan VLDL CALC 12.6 mg/dL Normal [facility] Comment on above: Performed By: #### P OCGLUC #### [facility] [address] [address] [address] Demetrio Kan MAGNESIUMon 12-29-2022 Magnesium [Mass/Vol] 1.7 mg/dL Critically low 1.8-2.4 [facility] Comment on above: Performed By: #### P OCGLUC #### [facility] [address] [address] [address] Demetrio Kan POINT OF CARE GLUCOSEon 12-02 Glucose [Mass/Vol] 181 mg/dL Critically high 74-106 [facility] Comment on above: Performed By: #### P OCGLUC #### [facility] [address] [address] [address] Demetrio Kan Glucose [Mass/Vol] 283 mg/dL Critically high 74-106 [facility] Comment on above: Performed By: #### P OCGLUC ####[facility] [address] [address]Dr. Demetrio Kan Glucose [Mass/Vol] 237 mg/dL Critically high 74-106 [facility] Comment on above: Performed By: #### P OCGLUC ####[facility] [address] [address]Dr. Demetrio Kan Glucose [Mass/Vol] 144 mg/dL Critically high 74-106 [facility] Comment on above: Performed By: #### P OCGLUC ####[facility] [address] [address]Dr. Demetrio Kan PROF 14(COMP METB)on 023 Albumin [Mass/Vol] 2.2 g/dL Critically low 3.4-5.0 [facility] Comment on above: Performed By: #### C MP, BNP, CMADM #### [facility] [address] [address] [address] Demetrio Kan Albumin/Globulin [Mass ratio] 0.5 {ratio} Normal [facility] Comment on above: Performed By: #### C MP, BNP, CMADM #### [facility] [address] [place] [address] Dr. Demetrio Kan ALP [Catalytic activity/Vol] 128 U/L Critically high 46-116 [facility] Comment on above: Performed By: #### C MP, BNP, CMADM #### [facility] [address] [place] [address] Dr. Demetrio Kan ALT [Catalytic activity/Vol] 14 U/L Normal 14-59 [facility] Comment on above: Performed By: #### C MP, BNP, CMADM #### [facility] [address] [place] [address] Dr. Demetrio Kan Anion gap [Moles/Vol] 11.3 mmol/L Normal [facility] Comment on above: Performed By: #### C MP, BNP, CMADM #### [facility] [address] [place] [address] Dr. Demetrio Kan AST [Catalytic activity/Vol] 14 U/L Critically low 15-37 [facility] Comment on above: Performed By: #### C MP, BNP, CMADM #### [facility] [address] [place] [address] Dr. Demetrio Kan Bilirubin [Mass/Vol] 0.7 mg/dL Normal 0.2-1.0 [facility] Comment on above: Performed By: #### C MP, BNP, CMADM #### [facility] [address] [place] [address] Dr. Demetrio Kan Calcium [Mass/Vol] 9.2 mg/dL Normal 8.5-10.1 [facility] Comment on above: Performed By: #### C MP, BNP, CMADM #### [facility] [address] [place] [address] Dr. Demetrio Kan Chloride [Moles/Vol] 100 mmol/L Normal 98-107 [facility] Comment on above: Performed By: #### C MP, BNP, CMADM #### [facility] [address] [address] [address] Demetrio Kan CO2 [Moles/Vol] 31.6 mmol/L Normal 21.0-32.0 [facility] Comment on above: Performed By: #### C MP, BNP, CMADM #### [facility] [address] [address] [address] Demetrio Kan Creatinine [Mass/Vol] 0.75 mg/dL Normal 0.55-1.02 [facility] Comment on above: Performed By: #### C MP, BNP, CMADM #### [facility] [address] [address] [address] Demetrio Kan EGFR-AF [place] >60 Normal >=60 [facility] Comment on above: Performed By: #### C MP, BNP, CMADM #### [facility] [address] [address] [address] Demetrio Kan EGFR-NON AF [place] >60 Normal >=60 [facility] Comment on above: Performed By: #### C MP, BNP, CMADM #### [facility] [address] [address] [address] Demetrio Kan Globulin (S) [Mass/Vol] 4.4 g/dL Normal [facility] Comment on above: Performed By: #### C MP, BNP, CMADM #### [facility] [address] [address] [address] Demetrio Kan Glucose [Mass/Vol] 178 mg/dL Critically high 74-106 [facility] Comment on above: Performed By: #### C MP, BNP, CMADM #### [facility] [address] [address] [address] Demetrio Kan Potassium [Moles/Vol] 2.9 mmol/L Critically low 3.5-5.1 [facility] Comment on above: Performed By: #### C MP, BNP, CMADM #### [facility] [address] [address] [address] Demetrio Kan Protein [Mass/Vol] 6.6 g/dL Normal 6.4-8.2 [facility] Comment on above: Performed By: #### C MP, BNP, CMADM #### [facility] [address] [address] [address] Demetrio Kan Sodium [Moles/Vol] 140 mmol/L Normal 136-145 [facility] Comment on above: Performed By: #### C MP, BNP, CMADM #### [facility] [address] [address] [address] Demetrio Kan Urea nitrogen [Mass/Vol] 17.0 mg/dL Normal 7.0-18.0 [facility] Comment on above: Performed By: #### C MP, BNP, CMADM #### [facility] [address] [address] [address] Demetrio Kan Urea nitrogen/Creatinine [Mass ratio] 22.7 mg/mg Normal [facility] Comment on above: Performed By: #### C MP, BNP, CMADM #### [facility] [address] [address] [address] Demetrio Kan PROF CHEM 8 (BAS METB)on Anion gap [Moles/Vol] 10.0 mmol/L Normal [facility] Comment on above: Performed By: #### B MP ####[facility] [address] [address]Dr. Demetrio Kan Calcium [Mass/Vol] 8.9 mg/dL Normal 8.5-10.1 [facility] Comment on above: Performed By: #### B MP ####[facility] [address] [address]Dr. Demetrio Kan Chloride [Moles/Vol] 107 mmol/L Normal 98-[address] [facility] Comment on above: Performed By: #### B MP ####[facility] [address] [address]Dr. Demetrio Kan CO2 [Moles/Vol] 31.4 mmol/L Normal 21.0-32.0 [facility] Comment on above: Performed By: #### B MP ####[facility] [address] [address]Dr. Demetrio Kan Creatinine [Mass/Vol] 0.73 mg/dL Normal 0.55-1.02 [facility] Comment on above: Performed By: #### B MP ####[facility] [address] [address]Dr. Demetrio Kan EGFR-AF [place] >60 Normal >=60 [facility] Comment on above: Performed By: #### B MP ####[facility] [address] [address]Dr. Demetrio Kan EGFR-NON AF [place] >60 Normal >=60 [facility] Comment on above: Performed By: #### B MP ####[facility] [address] [address]Dr. Demetrio Kan Glucose [Mass/Vol] 148 mg/dL Critically high 74-106 [facility] Comment on above: Performed By: #### B MP ####[facility] [address] [place], [place] [address]Dr. Demetrio Lucius Potassium [Moles/Vol] 3.4 mmol/L Critically low 3.5-5.1 [facility] Comment on above: Performed By: #### B MP ####[facility] [address] [place], [place] [address]Dr. Demetrio Kan Sodium [Moles/Vol] 145 mmol/L Normal 136-145 [facility] Comment on above: Performed By: #### B MP ####[facility] [address] [address]Dr. Demetrio Kan Urea nitrogen [Mass/Vol] 16.0 mg/dL Normal 7.0-18.0 [facility] Comment on above: Performed By: #### B MP ####[facility] [address] [place], [place] [address]Dr. Carolynejosé miguel Lucius Urea nitrogen/Creatinine [Mass ratio] 21.9 mg/mg Normal [facility] Comment on above: Performed By: #### B MP ####[facility] [address] [address]Dr. Demetrio Lucius PROTIMEon 12-29-2022 INR Coag (PPP) [Relative time] 0.99 {INR} Normal [facility] Comment on above: Performed By: #### P TT, PT ####[facility] [address] [address]Dr. Demetrio Kan INR GUIDELINES SEE BELOW Normal [facility] Comment on above: Result Comment: TRAVIS RED INR: 2.0 - 3.0 CONDITIONS NOT LISTED BELOW 2.5 - 3.5 FOR PROSTHETIC HEART VALVE REPLACEMENT 2.5 - 3.5 RECURRENT THROMBOSIS Performed By: #### P TT, PT ####[facility] [address] [address]DrPham Kan PT Coag (PPP) [Time] 10.5 s Normal 9.0-11.[address] [facility] Comment on above: Performed By: #### P TT, PT ####[facility] [address] [address]Dr. Demetrio Kan PTTon 12-29-2022 aPTT Coag (Bld) [Time] 27.3 s Normal 22.3-36.2 [facility] Comment on above: Performed By: #### P TT, PT ####[facility] [address] [address]Dr. Demetrio Kan SPUTUM GRAM STAINon 12-30-19 COMMENTS Normal [facility] Comment on above: Performed By: #### P OCGLUC #### [facility] [address] [address] [address] Demetrio Kan DIPHTHEROIDS Normal [facility] Comment on above: Performed By: #### P OCGLUC #### [facility] [address] [address] [address] Demetrio Kan EPITHELIALS <25 Normal [facility] Comment on above: Performed By: #### P OCGLUC #### [facility] [address] [address] [address] Demetrio Kan FUNGAL ELEMENTS Normal [facility] Comment on above: Performed By: #### P OCGLUC #### [facility] [address] [address] [address] Demetrio Kan GRAM NEG BACILLI Normal [facility] Comment on above: Performed By: #### P OCGLUC #### [facility] [address] [place] [address] Dr. Demetrio Kan GRAM NEG DIPPLOCOCCI Normal [facility] Comment on above: Performed By: #### P OCGLUC #### [facility] [address] [place] [address] Dr. Demetrio Kan GRAM POS BACILLI FEW Normal [facility] Comment on above: Performed By: #### P OCGLUC #### [facility] [address] [place] [address] Dr. Demetrio Kan GRAM POSITIVE COCCI MODERATE Normal [facility] Comment on above: Performed By: #### P OCGLUC #### [facility] [address] [place] [address] Dr. Demetrio Kan WBC (Bld) [#/Vol] 10*3/uL Normal [facility] Comment on above: Performed By: #### P OCGLUC #### [facility] [address] [place] [address] Dr. Demetrio Kan SYMPTOMATIC COVID-19 ANTIGEN on 12-29-2022 EUA Statement SEE BELOW Normal [facility] Comment on above: Result Comment: This [...] By: #### C MP, BNP, CMADM #### [facility] [address] [place] [address] Dr. Demetrio Kan SARS-CoV-2 (COVID-19) RNA BRUNO+probe Ql (Unsp spec) Negative Normal NEGATIVE [facility] Comment on above: Performed By: #### C MP, BNP, CMADM #### [facility] [address] [address] [address] Demetrio Kan TSHon 12-29-2022 TSH 0.370 uIU/mL Normal 0.358-3.740 [facility] Comment on above: Performed By: #### P OCGLUC #### [facility] [id number] Demetrio Kan XR CHEST 1 Von [...] by: GAIL SCHAEFER Date: 2022-12-28 23:[address] [facility] CT LUNG CANCER SCREENINGon 0 11-17-2022 [...] JEAN MOONEY Date: 2022-11-17 14:47 Normal [address] [facility] Coding Summary.on 11-17-2022 Coding Summary. [id number]+[id number] JStX71rhHKlwA6BI6xEP A5MZNHYWEUYVC7MVK1ee TF0HQgcH8ZdbzIc JrpyjHUiCK74JRf3RGX0 zJcdZHzhiP7laJJaO2f0 NnSkTI96lJ26DRayYZYw XmO7LjZdpjdscJQi A4atDlGrdSOhDkk+PHRh YmxlIHdpZHRoPScxMDAl ZwBrzUjcJX3aMs1mBKNc LWNvbGxhcHNlOiBj c5nvPHKoVJcoKV6erDou T2NnkJE3ADVth7z1Rh89 dHI+MYSsTJC6hZeqPQow s980PaSsx1jlZAJ6 oRSzOWwgLSE8C22ub6L1 SVVrFRAtXTP6hRR7pM7b uWtamiqcJ9UdlOWnKpR6 VUV6lPKysU0hrXbt lhtceH8aPfg+E38JTD8B DZEKFQ2JVki2F1ZwKawk dHI+EH76DQIgHU08nAOu nSJdt2bkhIu8TgLx JSMkHJO9iWnrYFlke2Mh BFDqC12swCWmh7U5VWVs kKhovOOgOhZgpOB1uR8m YDuixeeph5jmivei Iljcb0jchf17zC28M93c RGkgGVJsTKE6HIRnRQTn zLicey0lqC0kWb6+IDxj q4fno9onyRx5YqZn DFKbryWlgEknJFK7e4Lr Fs75Y5VrpGxzz2SoDpk0 gd91bVCfl9J9pUK0FSyl CPRohP8xGAggAhX6 FZLaNzNxlY12vLFsICmt Qv1xmZloeYyoPP3eEEJt rzoaDXFldL8gJXAgcCXm lPueJL7pXXQwdjin b286BvZxLUE2ACMxzLVv M9TutT7yLsNqCTCsGLYy Q9QjkBEkCBzhC542HPui LcE6OSGlfdXbC4Vg JSWkvHkeVrV9w3Q7Vf9I n2LvhogjBBY1GQjcBUVy RnT7UfTcGrD1E5WmLri2 LKYxdHwjOU6bP8Uw YAZqtvhcauyyeYJ3LDFz HMLulF38pHRnQRliNv8g x0X9m082MZNoUYFsqB40 Cj4qyZhbWRLtbRCV hI3srjhyq9uugpcbUlQd IIGsQIo1HAs4KVNieUvd CzVyXDW2YpW1YIQ5kWWz hU3gkZxmtiwzlU5o Oyc+Q36xtV9lAEU3ACC7 tjaoGBBrfsYoRT74AB74 M8OxHlxztQKhsMS+PGRp chZqcMvrVS6iLmHg c3heb3QfXUrmO6ByTEEo MZzaFyb6CDShDZO5fFO9 mD7xOFDnIIlwn1C7wIA1 A8BqxqZuxj3kz2wf IGEwLTycP05dzRQrh6K7 XHBeiEP8SOAuuYmsYiEq sB34Uin+YRKkcGewi5Nb Vzmwm0naz9nvaLn2 IjMwJSIgdmFsaWduPSJ0 p8OjBi55G08kROnpPSOs OGZvFFFaSTXzuRzgda6j pD4rCv4+PGNvbCB3 eAQ4vI6mJZQsGjQ1DSyl L077RbXsxDSkFdfuo4zs b7cjjZv5DjMtJZBypnNt tSmkZYA7m3ZeJp47 M17tOTmdXPTcYDArKIQr HJUlwObqvw1vtE0qNk5+ IV9sk1pmyl53zW84jCE+ HAEjMVG9iPuaIEoa OMMdmA5iBPtoLnQ1SQXr MdJauR65vBWeCTuwJi7l tMlfdAjrRV2yTICyjmzf o547DrIfj0xqFJBh eULrVQkwFMS4R54sv7U0 HGGlZWMxGCF5qQJ7eP5u bGlnbjogbGVmdDsgdmVy aFjsUEuvVJtxO780 IHRvcDsnPlBhdGllbnQg SmRjNJp7E0OxPyf1DGVe bNqdMJ7jtYGuMFglKo2d hMcvbZddKU4oJZRz ddvez033MlDtu7jaFWPk bCQgYSroQCH8I85mj0R6 PJMcCDNcNYO0jMO1pD5e bGlnbjogbGVmdDsg jgXcsRbqPKruUPxrH576 IHRvcDsnPkJpcnRoIERh jGA1MD93ER99uGSco1P6 cNI1C0CxVSTfizvl tfvvqGB3DKIcAYEfzG32 Tl6ftFwbSo8dLDOsKDD4 DIJbbYLlG0WrbO3xOcKk UXMkUOFxQ7RimVIi QHmxM731LUbvIvU9KZBr tuAfD3OtVHZzdOexRgW9 p8X9Al2ZH7G5AF20QU01 hYEmr5H0hKE3S3Eg FDXepmjjvmkijYB2GQTs BKXrnP18Ls5swQkoRk1v YUEyAWT9GYXuhZZyJ5Su vN7xMuFfVVTxGDWo V2VooOEdPThoX073URet DmX0JIOfvhLpL2OcNNMp nAkiOvJ9c2U1Ek6AXGo4 WP21RS39aUBzw5Z6 qMP3J6OjDTTbolizhdww aEF1AUNiBVEqjY19Kj0v hIesXb4rRJSrFPL3XTQp nGNnW4PjwR4rFrLj AZHvIOBgB1MrnYVvAOnl X685DPpzOuC5TIGffnVu A8DeNSKpcClwQzO0r3U3 Zs6JKXUbHD00TLS9 dMP2VV46DI40F9JvRyxr dGFibGU+PHRhYmxlIHdp ZHRoPScxMDAlJyBzdHls WW6pRh6qCBGtOZCr kJyhgADvEmAxt2xbTETs UKqgWV4czPswN2UwtMW7 CKMet5z7Ac44S81zA3Qc dXA+ZGLffTV4gSB3 wF6eHyXhCnJ4MMlkO822 VjBhpCXkHxjty9vfx1bg sVo7YsQ5TLAftxUuaAjh IUM4l7EuJe76C01o IHdpZHRoPSIxNSUiIHZh kTqggm0llG8gQe3+PGNv rQN9aOH9bW3sZaDkKqZ0 TWbkU443UlRzjTVg Ytdtm2mtb2ayxQl4SpGl UAWbgzVnrDucBNL3i1To Wp29E9FvfKbus3SlPdv5 cr22cIKgm3E8jPW5 L4OpFIVzndlhbTGxnRlu BF4bXZZggylqYLMicC0o YWIqP0j2DyVtJhL3LUro K3KctmQ3OCEblODn EUgtBJF1Z55lq3X1YTFc QCGjJIQ4yYQ4pX0adXcz bjogbGVmdDsgdmVydGlj OQsqUWqbJ768AXNw cTclCMXbkO0yVQXqiUPi eTwuGI8jPWQficbfTz7N NRUQUaebGRVJA2kSNQ90 QS97pWQad7U8mDK4 J5AwXTGidsafpqkeqRM6 BZZaEFNhkW62nKUsHNai Qq1kd7Y2i978FKOhFJNh gX39Ab9ecUnjZDFs jNKUhW6brzyvm9pkkpyw UgSfRYIwKPy6ZKn5FLMm aDugTcEiGHM3YoL2ZGY1 vTEmyK5anIdwyqfp vD3uTaw+MDkvMzAvMTk1 MDwvdGQ+PKBmZMY4jQrg EGzbPAAqxY2cJILvO3m2 NiUwDpG4AOtfI8Wm OJQurdpuMq98tB9pMqEp DgH3LZjzI0OmolW8SKJv zQPvSZctWNM3L25wc8M9 OJPoQFRtTTM0eWP7 sU8vpRytnchmfBFxwSpr myTsoRbgRXkaMKneB426 IHRvcDsnPjcyIFllYXJz XL34UO98hFMej9L2 kNM1P2SnYSWktoncflfq vUD6IZDfWXSjgE19fBWn RYxsFf4xn5I5y836GLCv PQEgkJ37Ha3iqKnl ODLsoNTDvU9naicip4re xebwPaCkABKzVCr7WZm6 FZHpyNvtQqSeURQ7XcO1 UYX8wZSuyU5cyYbh skjvyA7wBqa+RmVtYWxl NT28CQ16jCVbf7N1zMR7 V6ZjELXkkqrssesplTD1 CDXxQZMldM98bXXa ZAyvZj3cz9Y1h245GIPt GWBpkQ06Fp7pfLrhQJFf yRJHwC9sfbimo5wzvdfm QaHxXYGxJOe5OTq6 VFWeeHxcQfCvJBR1EeZ3 DEE3iYRfrT6roYocsjqt eG9wIzs+WNKdZSLmh9Ic e0HnIL54HY20Z7Hz PjwvdGFibGU+PHRhYmxl IHdpZHRoPScxMDAlJyBz iBjtWA4cSe8gHOVkHLKx gUimwBDkRnHpd1hg DHTdKLkaRN6anSzwY5Fn pVH8CVDxc7d9Oh02Q76k F6KfzZT+VSMysCZ5hKH6 mT5vEyFqIvG6EGcs X188BrUulKAnXtfix4fz z9slaAk5CnZzIUHevxZi tJabRLO1l0DrVe91Z42d IHdpZHRoPSIyMCUi WCBbrYwzmz7heA7yMf5+ EUVxiJA3bSV3pH3xOrQx BzL0AQdmE524HxCcvMIf ZiwbD49pO5QkiPX+ CUNvVjv3FVNoqOrhLC7g mQJwQRjkTe3mSBJ9BuIj YaAxWTbtQ4XtFLCrgnda tctxnPP1DXWzZGHn uL79Gy9msZevGz9zPRSr NPF5JEUneVFaL0RjdJ2i TnJkDMByFDOmR2GkjFEw OGxeU920TDsfJxV7 TXNydzSkB3NwQUDvlGmp SeV8n0R5Uf3YkDeabVVy DM2hDnXsSHw8N9EvSdc9 HKMttKxeDY5toIOf TXutYa8iwErgtAmdQD7p WYYlmruzw595AdOai7om HXOrwLQlDNplTFC6W32t l6R1MILyBUEsTMC7 sKZ2mU9szMnfaxigxWZc dDsgdmVydGljYWwtYWxp M952PVLgmAlkEdNHDzy0 O2HpBmd5UTYcnWlp CE5avEIpJOggIr9peUtd nSxpRL4dNLRudgvdi590 OdOqj9biUJKjwVLfPBmn QIC3I74kl0A6YKDy CJWmRRX8sBL1uB7woSzu bjogbGVmdDsgdmVydGlj ZKljJSweL113JCLnsQfo Bn3HIsy5J4BnGzd0 JNEcpMroZB8ibWXaRSbi Gj8wcUlqkJudOG1eUQVo yarng120FjKuh7kfJICe pEXbLPfhFDZ2Z08g b3K7ZCNyMVXbDMV4mVI2 dW6nwFjhbdwfdZNiqDxo ssJuiHacBZkaRSbtL606 IHRvcDsnPlBheWVy OjwvdGQ+SR47eo59G8Iu UszwKsn0ZXLzUSQ0zEG5 uD9jPGZhIQuan2U2vBW3 V4ApvxYvot2xf2gw YXBz (more content not included)... Normal [facility] Blood Gas Art, with LyBarb queen, [place] 11-11-2022 a/A Ratio Art 72.90 % Normal >=0.[address] [facility] Comment on above: Performed By: #### [id number] #### [facility] [address] [place] [address] AaDO2 Art 24.8 mmHg High 5.0-15.0 [facility] Comment on above: Performed By: #### 4 [id number] #### [facility] [address] [place] [address] Allens Test Positive Normal [facility] Comment on above: Performed By: #### 4 [id number] #### [facility] [address] [place] [address] Base Excess Arterial 4.8 mmol/L Normal >=2.8 [facility] Comment on above: Performed By: #### 4 [id number] #### [facility] [address] [place] [address] cCa2+ Art 4.72 mg/dL Normal 4.40-5.30 [facility] Comment on above: Performed By: #### 4 [id number] #### [facility] [address] [place] [address] cCl- Art 105.0 mmol/L Normal 101.0-111.[address] [facility] Comment on above: Performed By: #### 4 [id number] #### [facility] [address] [place] [address] cGlu Art 125 mg/dL High 55-99 [facility] Comment on above: Performed By: #### 4 [id number] #### [facility] [address] [place] [address] cK+ Art 4.0 mmol/L Normal 3.5-5.3 [facility] Comment on above: Performed By: #### 4 [id number] #### [facility] [address] [place] [address] cLac Art 1.1 mmol/L Normal .5-2.2 [facility] Comment on above: Performed By: #### 4 [id number] #### [facility] [address] [place] [address] merchandise director+ Art 143.0 mmol/L Normal 135.0-145.[address] [facility] Comment on above: Performed By: #### 4 [id number] #### [facility] [address] [place] [address] Drawn by [employer]MIL[employer] Invalid Interpretation Code [facility] Comment on above: Performed By: #### 4 [id number] #### [facility] [address] [place] [address] FCOHb Art 1.1 % Low 1.5-4.9 [facility] Comment on above: Result Comment: Refe rence range Nonsmoker <1.5% Smoker <5.0% Heavy Smoker <9.0% Performed By: #### 4 [id number] #### [facility] [address] [place] [address] FIO2 BG 21 Invalid Interpretation Code [facility] Comment on above: Performed By: #### 4 [id number] #### [facility] [address] [place] [address] FMetHb Art 0.3 % Normal 0.0-1.9 [facility] Comment on above: Performed By: #### 4 [id number] #### [facility] [address] [place] [address] FO2Hb Art 93.3 % Normal 92.0-100.0 [facility] Comment on above: Performed By: #### 4 [id number] #### [facility] [address] [place] [address] HCO3 (Bld) [Moles/Vol] 28.7 mmol/L High 22.0-26.0 [facility] Comment on above: Performed By: #### 4 [id number] #### [facility] [address] [place] [address] Hemoglobin (Bld) [Mass/Vol] 13.5 g/dL Normal 12.0-16.0 [facility] Comment on above: Performed By: #### 4 [id number] #### [facility] [address] [place] [address] Oxygen saturation in Blood 94.6 % Low 95.0-100.0 [facility] Comment on above: Performed By: #### 4 [id number] #### [facility] [address] [place] [address] P CO2 Arterial 46.1 mmHg High 35.0-45.0 [facility] Comment on above: Performed By: #### [id number] #### [facility] [address] [place] [address] P O2 Arterial 66.9 mmHg Low 80.0-100.[address] [facility] Comment on above: Performed By: #### [id number] #### [facility] [address] [place] [address] pH Arterial 7.423 Normal 7.350-7.450 [facility] Comment on above: Performed By: #### [id number] #### [facility] [address] [place] [address] Sample Site R Radial Normal [facility] Comment on above: Performed By: #### 4 [id number] #### [facility] [address] [place] [address] Sample Type Arterial Draw Normal [facility] Comment on above: Performed By: #### [id number] #### [facility] [address] [place] [address] CARDIAC STRESS TESTon 2022 CARDIAC STRESS TEST [...] ambulatory oxygen. Clinical correlation required. Normal [facility] HEMOGLOBINon 11-11-2022 Hemoglobin (Bld) [Mass/Vol] 13.1 g/dL Normal 12.0-16.[address] [facility] Comment on above: Performed By: #### P OCGLUC #### [facility] [address] [address] [address] Demetrio Kan LAB TESTINGon 11-11-2022 RECV HEADER SEE SCANNED REPORT IN H[facility] Comment on above: Performed By: #### M ISC ####[facility] [address] [address]Dr[address] Demetrio Kan REV FROM REF LAB 11/11/2022 [facility] Comment on above: Performed By: #### M ISC ####[facility] [address] [id number]. Demetrio Kan SENT TO REF LAB 11/11/2022 [facility] Comment on above: Performed By: #### M ISC ####[facility] [address] [id number]. Demetrio Kan Physician Orderon 11-11-2022 Physician Order [id number] [id number]:127 Normal [facility] Vital Signs Date Time Vital Sign Value Performing Clinician Facility 06-20-2024 13:03-0400 Body height 152.4 cm [facility] 06-20-2024 13:03-0400 Body mass index (BMI) [Ratio] 20.9 kg/m2 [facility] 06-20-2024 13:03-0400 Body temperature 97.4 [degF] [facility] 06-20-2024 13:03-0400 Body weight 48.53 kg [facility] 06-20-2024 13:03-0400 Diastolic blood pressure 76 mm[Hg] [facility] 06-20-2024 13:03-0400 Heart rate 64 /min [facility] 06-20-2024 13:03-0400 SaO2% (BldA) [Mass fraction] 92 % [facility] 06-20-2024 13:03-0400 Systolic blood pressure 122 mm[Hg] [facility] 03-06-2024 13:26-0400 Body height 152.4 cm [facility] 03-06-2024 13:26-0400 Body mass index (BMI) [Ratio] 21.2 kg/m2 [facility] 03-06-2024 13:26-0400 Body weight 49.44 kg [facility] 03-06-2024 13:26-0400 Diastolic blood pressure 62 mm[Hg] [facility] 03-06-2024 13:26-0400 Heart rate 71 /min [facility] 03-06-2024 13:26-0400 SaO2% (BldA) [Mass fraction] 98 % [facility] 03-06-2024 13:26-0400 Systolic blood pressure 106 mm[Hg] [facility] 02-08-2024 11:03-0400 Body height 152.4 cm [facility] 02-08-2024 11:03-0400 Body mass index (BMI) [Ratio] 21.2 kg/m2 [facility] 02-08-2024 11:03-0400 Body weight 49.44 kg [facility] 02-08-2024 11:03-0400 Diastolic blood pressure 60 mm[Hg] [facility] 02-08-2024 11:03-0400 Heart rate 88 /min [facility] 02-08-2024 11:03-0400 SaO2% (BldA) [Mass fraction] 96 % [facility] 02-08-2024 11:03-0400 Systolic blood pressure 104 mm[Hg] [facility] 10-18-2023 13:13-0500 Body mass index (BMI) [Ratio] 21.64 kg/m2 Tasha Padgett MD Work Phone: [facility] [employer] [facility] 10-18-2023 13:13-0500 Body weight 50.26 kg Tasha Padgett MD [facility]-18[facility] 13:13-0500 Diastolic blood pressure 56 mm[Hg] Tasha Padgett MD Work Phone: [facility] [employer] 10-18-2023 13:13-0500 Systolic blood pressure 108 mm[Hg] Tasha Padgett MD Work Phone: [employer] 08-03-2023 11:00-0400 Body height Lazara Hernandez Other [employer] Other 08-03-2023 11:00-0400 Body mass index (BMI) [Ratio] 20.89 kg/m2 Lazara Hernandez Other [employer] Other 08-03-2023 11:00-0400 Body weight 48.54 kg Lazara Hernandez Other [employer] Other 08-03-2023 11:00-0400 Diastolic blood pressure 64 mm[Hg] Lazara Hernandez Other [employer] Other 08-03-2023 11:00-0400 SaO2% (BldA) [Mass fraction] 98 % Lazara Mary Other [employer] Other 08-03-2023 11:00-0400 Systolic blood pressure 115 mm[Hg] Lazara Hernandez Other [place] [email or web address] Other Encounters Encounter Date Encounter Type Care Provider Facility Start: 06-20-2024 End: 06-20-2024 ambulatory [facility] Work Phone: Start: 06-20-2024 End: 06-20-2024 Patient encounter procedure [facility] Physician [facility] Work Phone: Start: 06-16-2024 End: 06-16-2024 [facility] Start: 06-11-2024 End: 06-11-2024 [facility] Start: 04-19-2024 Non-patient / Non-visit [facility] Physician [facility] Work Phone: Start: 04-17-2024 End: 04-17-2024 ambulatory [facility] Work Phone: Start: 04-17-2024 End: 04-17-2024 Patient encounter procedure [facility] Physician [facility] Work Phone: Start: 04-17-2024 End: 04-17-2024 ambulatory [facility] Start: 03-06-2024 End: 03-06-2024 ambulatory [facility] Work Phone: Start: 03-06-2024 End: 03-06-2024 Patient encounter procedure [facility] Physician [facility] Work Phone: Start: 02-09-2024 Patient encounter procedure [facility] Start: 02-08-2024 End: 02-08-2024 ambulatory [facility] Work Phone: Start: 02-08-2024 End: 02-08-2024 Patient encounter procedure [facility] Work Phone: Start: 01-30-2024 End: 01-30-2024 ambulatory LIBERTY Tolentino [facility] Start: 01-24-2024 End: 01-24-2024 ambulatory MICHELLE Womack SANDEEPJADIELCASTEPHAN [facility] Start: 01-17-2024 End: 01-17-2024 ambulatory [facility] Start: 01-17-2024 End: 01-18-2024 ambulatory [facility] Start: 10-18-2023 End: 10-18-2023 ambulatory [facility] Start: 10-18-2023 End: 10-18-2023 Office outpatient visit 15 minutes Tasha Padgett MD Work Phone: [facility] Comment on above: Midline cystocele (P rimary Dx) Start: 08-08-2023 End: 08-08-2023 ambulatory Lazara Hernandez Other [employer] Other Start: 08-08-2023 Telephone encounter Lazara Darden her [facility] Start: 08-03-2023 End: 08-03-2023 ambulatory Lazara Hernandez Other [employer] Other Start: 08-03-2023 Office outpatient ne w 30 minutes Lazara Hernandez [facility] Start: 01-11-2023 End: 01-12-2023 ambulatory NAGA SAMSA . Facility:[facility] Start: 12-29-2022 End: 12-31-2022 Evaluation and management of inpatient DR WESLEY VALDIVIA Facility:[facility] Start: 11-17-2022 End: 11-18-2022 ambulatory NAGA SAMSA . Facility:[facility] Start: 11-11-2022 End: 11-12-2022 ambulatory NAGAJORGE VENTURA Facility:[facility] Start: 11-11-2022 End: 11-12-2022 ambulatory NAGA AUDREY . Facility: Start: 01-24-2018 End: 09-08-2020 Patient encounter status Tasha Padgett MD Work Phone: [facility] Work Phone: Procedures Date Procedure Procedure [...] 10-18-2024 Adult BMI Screening Adult BMI Screening [facility] Start: 10-18-2024 Tobacco Screening Tobacco Screening [facility] Start: 03-06-2024 Patient referral [facility] Work Phone: Start: 01-30-2024 End: 01-30-2024 Patient encounter procedure 01/30/2024 1:00 PM EDT [facility] Visit [facility] [address] [place] [id number] Jose Gallo, 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 [address] KRISTINA NUNEZ, [address] [address] [facility] Start: 01-24-2024 End: 01-24-2024 Patient encounter procedure [facility] Start: 01-17-2024 End: 01-17-2024 Patient encounter procedure 01/17/2024 1:00 PM EDT [facility] [address] [place] [address] Tasha Padgett MD [address] [place] [address] [facility] Start: 10-28-2022 Depression Screening Depression Screening [facility] Start: 2015 Fall Risk Screening Fall Risk Screening [facility] Start: 1969 DTaP,Tdap and Td Vaccines (1 - Tdap) DTaP,Tdap and Td Vaccines (1 - Tdap) [facility] Start: 1950 Medicare Annual Wellness Visit Medicare Annual Wellness Visit [facility] Start: 1950 Tobacco Counseling Tobacco Counseling [facility] Comprehensive metabo lic 2000 panel - Serum or Plasma [facility] Comprehensive metabo lic 1999 panel - Serum or Plasma [facility] CT Neck [facility] DXA Skeletal system. axial Views for bone density [facility] MG Breast - bilatera l Screening [facility] Patient referral [facility] Work Phone: [facility] Immunizations Immunization Date Immunization Notes Care Provider Fa cility 02-08-2024 Pneumococcal Conjuga te Vaccine, 20 valent [facility] 06-26-2016 influenza, high dose seasonal, preservative-free Tasha Padgett MD Work Phone: [facility] 09-10-2015 influenza, seasonal, injectable Tasha Padgett MD Work Phone: [facility] 09-10-2015 pneumococcal conjuga te vaccine, 13 valent Tasha Padgett MD Work Phone: [facility] Payers Date Payer Category Payer Unknown [employer] [id number] 2021-Present [phone] [address] [address] [id number] 2015 Medicare MEDICARE MEDICAR E PART A & B [id number] 2015-Present [phone] [address] [place] [address] [id number] 1959 Medicare [id number] 1959 Unknown [id number] 1950 Unknown [id number] 2.16.840.1.897563.3.579. 2.727 1950 Unknown [id number] 2.16.840.1.677967.3.579. 2.593 1950 Unknown [id number] 2.16.840.1.684436.3.579. 2.593 1950 Unknown [id number] 2.16.840.1.129336.3.579. 2.593 1950 Unknown [id number] 2.16.840.1.300425.3.579. 2.593 1950 Unknown [id number] 2.16.840.1.716926.3.579. 2.1286 1950 Unknown [id number] 2.16.840.1.669782.3.579. 2.1286 1950 Unknown [id number] 2.16.840.1.311741.3.579. 2.1286 1950 Unknown [id number] 2.16.840.1.909115.3.579. 2.1286 1950 Unknown [id number] 2.16.840.1.963253.3.579. 2.1286 1950 Unknown [id number] 2.16.840.1.953642.3.579. 2.128 1950 Unknown [id number] 2.16.840.1.241803.3.579. 2.1286 1950 Unknown [id number] 2.16.840.1.055300.3.579. 2.1286 1950 Unknown [id number] 2.16.840.1.243203.3.579. 2.1286 1950 Unknown [id number] 2.16.840.1.392301.3.579. 2.1286 Private Health Insurance [facility] [id number] Self-pay Self Pay [id number] Unknown Regular Insurance [id number] Social History Date Type Detail Facility Unknown if ever smoked [employer] Other Start: 11-13-2020 End: 10-18-2023 [facility] Start: 04-18-2023 Tobacco smoking stat us [facility] Occasional tobacco smoker [facility] End: 10-03-2022 History of tobacco use Cigarette Smoker [facility] Start: 11-13-2020 End: 04-18-2023 Cigarettes smoked current (pack per day) - Reported 1.5 [facility] Start: 04-18-2023 Tobacco use and exposure Smokeless tobacco non-user [facility] Start: 10-18-2023 Alcohol intake Current non-[facility] health [facility] associate of alcohol (finding) [facility] Adolescent depressio n screening assessment 0 [facility] Start: 04-18-2023 Tobacco Comment PT STATES HAS CUT BACK BEEN USING PATCHES TO HELP- SAID SHE SMOKES ABOUT 4 A DAY [facility] Start: 1950 Sex Assigned At Not on file P [facility] Start: 02-08-2024 End: 03-06-2024 Tobacco smoking status NHIS Smoker (finding) [facility] Start: 1950 [facility] At [facility] Clinical Notes 08-03-2023 to 03-06-2024 Tasha Padgett MD - 10/18/2023 1:00 PM EST Note Date & Type Note Facility 03-06-2024 Hospital Discharg e instructions Ambulatory OrdersReferral to Orthopedic Surgery Time Frame: 03/06/24, Location: None Selected [facility] Work Phone: 10-18-2023 History of Presen t [...] TASHA PADGETT MD documented in this encounter [facility] 08-03-2023 Evaluation note Encounter Date Diagnosis [...] and willingness to quit at each appointment. [employer] Other Evaluation noteNo InformationNort [email or web address] Other Evaluation note* Diagnosis Midline cystocele- Primary Cystocele, midline documented in this encounter [facility]* Diagnosis Onset Date Resolution Status Controlled type 2 diabetes mellitus without complicati on acute Muscle cramping acute Restless leg syndrome acute [facility] Work Phone: Evaluation note* Diagnosis Onset Date Resolution Status Cigarette nicotine dependence without complication acute Controlled type 2 diabetes mellitus without complicati on acute Medicare annual wellness visit, subsequent acute Muscle cramping acute Post-menopausal acute Restless leg syndrome acute Screening for breast cancer acute Screening for colon cancer a cute Screening for osteoporosis a cute Osteoporosis acute [facility] Work Phone: Evaluation note* Diagnosis Onset Date Resolution Status Cigarette nicotine dependence without complication acute Controlled type 2 diabetes mellitus without complicati on acute Medicare annual wellness visit, subsequent acute Muscle cramping acute Post-menopausal acute Restless leg syndrome acute Screening for breast cancer acute Screening for colon cancer a cute Screening for osteoporosis a cute Osteoporosis acute Osteoporosis acute [facility] Work Phone: Evaluation note* Diagnosis Onset Date Resolution Status Osteoporosis acute Cigarette nicotine dependence without complication acute Localized swelling, mass and lump, neck acute [facility] Work Phone: Hisuutw general Narrative - Reported* Type Description Date Medical History diabetic Medical History hypertension Medical History heart attack Surgical History breast biopsy Surgical History stents x2 2013 Hospitalization History see surgical hx [employer] Other InstructionsNot on filedocumented in this encounter [facility] Summary Purpose Family History Relationship Condition [...] section and content) DATE CREATED AUTHOR 11/18/2022 [facility] DATE CREATED AUTHOR AUTHOR'S ORGANIZ ATION 01/17/2023 [facility] DATE CREATED AUTHOR AUTHOR'S ORGANIZ ATION 01/19/2024 [facility] DATE CREATED AUTHOR AUTHOR'S ORGANIZ ATION 04/21/2024 [facility] DATE CREATED AUTHOR AUTHOR'S ORGANIZ ATION 06/18/2024 [facility] REASON FOR VISIT (unrecogniz ed section and content) Reason Comments Pessary; cleaning Care Teams (unrecognized sec tion and content) 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 Relationship Specialty Start Date End Date Wesley Valdivia DO [address] [place] [address] PCP - General 08/02/13 Team Status: Active Member Role Status Dates Lazara Hernandez APRN THERMODYNAMICIST-C Primary Care Provider Active Team Status: Inactive Member Role Status Dates BILL Pratt Primary Care Provider, Attending Provider Active Start: February 08, 2024 End: February 08, 2024 Team Status: Inactive Member Role Status Dates Lazara Hernandez APRN THERMODYNAMICIST-C Primary Care Provider, Attending Provider Active Start: [...] Member Role Status Dates Lazara Hernandez APRN THERMODYNAMICIST-Chantel Primary Care Provider, Attending Provider Active Start: [...] BE BASED ON THE PRIMARY CLINICAL RECORDS. [employer] [facility]. provides no warranty or guarantee of the accuracy or completeness of information in this document.
== END 2024-06-29 08:43 | disposition home or self-care (01) ==
LOC: CT 08:42
PROVIDERS: PCP Nurse Practitioner Family; Visit Provider Nurse Practitioner Family
DX: R22.1 Localized swelling, mass and lump, neck (principal); F17.210 Nicotine dependence, cigarettes, uncomplicated; E04.1 Nontoxic single thyroid nodule
CPT/HCPCS: 70492; Q9967

== ENCOUNTER 2024-07-04 10:38 | Outpatient (OUT) | payer MEDICARE, OTHER, MEDICAID, SELFPAY ==
--- NOTE | 2024-07-04 10:52 | US_ITS ---
The [address] [address] Patient Name: TRAN RAYA MRN: [id number] date: 1950 Sex: F Assigned Patient Location: US Current Patient Location: [place] Accession/Order Number: [id number] Exam Date: 07/04/2024 10:53 Report Date: 07/04/2024 13:04 At the request of: ASIM BANGURA Procedure: US thyroid EXAMINATION: US thyroid HISTORY: Thyroid nodule E04.1 COMPARISON: 06/29/2024 TECHNIQUE: Sonographic images of the thyroid gland were obtained. FINDINGS: The right thyroid lobe measures 4.0 x 2.0 x 1.8 cm. Heterogeneous echotexture with 3 focal nodules over 5 mm. The thyroid isthmus measures 3.3 mm, heterogeneous. No focal nodule Left thyroid lobe measures 4.0 x 1.3 x 1.2 cm. Heterogeneous echotexture with a single nodule over 5 mm The most suspicious nodule: Right thyroid lobe. 1.3 x 0.9 x 1.2 cm. Solid and cystic, hypoechoic, wide, smooth margins, desiccation is. TR 3 Identified in the right submandibular region is a heterogeneous vascular lobular hypoechoic mass measuring 2.2 x 1.7 x 2.0 cm US/US thyroid IMPRESSION: 2.2 cm right submandibular hypoechoic vascular mass, indeterminate. Consider ultrasound-guided fine-needle aspiration Scattered thyroid nodules TI-RADS: The [employer] TI-RADS committee's white paper recommendations for thyroid lesions classified as TR3 (mildly suspicious) are listed below: > 1.5 cm. Follow-up ultrasound in 1, 3, and 5 years. > 2.5 cm. FNA. J. Am Ruchi Radiol 2017;14:587-595. Electronically authenticated by: DEVORAH MOTA Date: 07/04/2024 13:04
--- OUTSIDE RECORDS SUMMARY | 2024-07-04 11:00 | XMS_ITS | CCD ---
Author Organization [facility] Care Team Providers Care 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 Name Role Phone SAMSA, NAGA P Attending [...] PATEL Consulting Unavailable SISTER, MICHAEL Consulting Unavailable COATNel, JOCY Consulting Unavailable Marlonrbacher, Lazara Unavailable [phone] Wesley Valdivia DO Primary Care Provider TASHA PADGETT Referring Unavailable HOUSEWESLEY Primary Care Unavailable MICHELLE CHIN Referring Unavailable HOUSEWESLEY Primary Care Unavailable VINCE WATTS Attending Unavailable WESLEY VALDIVIA Referring Unavailable MARLONRBACHER, LAZARA Primary Care Unavailable VINCE WATTS Referring Unavailable MARLONRBACHER, LAZARA Primary Care Unavailable TASHA PADGETT Attending Unavailable [...] HOUSE, WESLEY De Los Santos Referring Unavailable SKIP, WESLEY De Los Santos Primary Care Unavailable TASHA PADGETT Attending Unavailable HOUSE, WESLEY De Los Santos Referring Unavailable LAZARA HERNANDEZ Primary Care Unavailable Allergies Allergy Classification Reported Allergen(s) Allergy Type Date of Onset Reaction(s) Facility (1 source) Ticagrelor Drug Allergy 12-29-2012 [facility] Repository (4 sources) Ticagrelor; Translations: [TICAGRELOR] Drug Allergy 11-19-2016 [facility] Medications Current Medications Medication Drug Class(es) [...] 12/19/2022 Active atorvastatin 80 mg oral tablet (11 sources) HMG-CoA Reductase Inhibitor Start: 01-30-2024 End: 04-16-2024 take 80 mg by mouth once daily Atorvastatin Active 80 MG PO Daily 90 90 April 16, 2024 3:38pm Start: 02-25-2023 take 1 tablet by jarret th in the morning atorvastatin (LIPITOR) 80 mg tablet Indications: Mixed hyperlipidemia , PAD (peripheral artery disease) (CMS-HCC) , Atherosclerotic PVD with intermittent claudication ([facility]-HCC) Take 1 tablet (80 mg total) by mouth in the morning. 90 tablet 3 02/25/2023 Active 120 actuat budesonide 0.16 mg/actuat / formoterol fumarate 0.0048 mg/actuat / glycopyrrolate 0.009 mg/actuat metered dose inhaler (7 sources) Corticosteroid, beta2-Adrenergic Agonist Start: 01-30-2024 take 1 puff(s) by inhalation twice daily Qggmcyoxrb-Pvmdjvaw-Lmdjpvjhcl Active 2 PUFF INHALATION Twice daily January 30, 2024 12:00am take 2 puff(s) by inhalation twi ce daily Breztri Aerosphere 160-9-4.8 MCG/ACT 2 puffs Inhalation Twice a day Active calcium carbonate 1500 mg / cholecalciferol 500 unt oral capsule (3 sources) Vitamin D Start: 04-17-2024 Calcium Carbonate-Vitamin D3 (Calcium 600 With Vitamin D3) 600 mg-12.5 mcg (500 unit) capsule Active 0 PO .COMPLEX April 17, 2024 12:00am orally twice daily; cholecalciferol 0.05 mg oral capsule (3 sources) Vitamin D Start: 04-17-2024 take 50 ug by mouth once daily Cholecalciferol (Vitamin D3) Active 50 MCG PO Daily April 17, 2024 12:00am furosemide 20 mg oral tablet (8 sources) Loop Diuretic Start: 01-30-2024 take 20 [...] 1 Application lisinopril 5 mg oral tablet (8 sources) Angiotensin Converting Enzyme Inhibitor Start: 01-30-2024 take 5 mg by mouth once daily Lisinopril Active 5 MG PO Daily January 30, 2024 12:00am Start: 02-07-2023 take 1 tablet by jarret th in the morning lisinopriL (PRINIVIL,ZESTRIL) 5 mg tablet Take 1 tablet (5 mg total) by mouth in the morning. 90 tablet 3 02/07/2023 Active magnesium oxide 400 mg oral tablet (7 sources) Start: 02-09-2024 End: 04-16-2024 take 1 tablet by mouth once daily Magnesium Oxide (Magox) 400 mg (241.3 mg magnesium) tablet Active 400 MG PO Daily 90 90 April 16, 2024 3:39pm metFORMIN hydrochloride 500 mg oral tablet (8 sources) Biguanide Start: 01-30-2024 take 500 mg [...] ranolazine 500 mg extended release oral tablet (8 sources) Anti-anginal Start: 01-30-2024 take 500 mg [...] aspirin 81 mg delayed release oral tablet (5 sources) Platelet Aggregation Inhibitor, Nonsteroidal Anti-inflammatory Drug [...] Not-Taking pramipexole dihydrochloride 1 mg oral tablet (8 sources) Nonergot Dopamine Agonist Start: 01-30-20 End: [...] disease (6 sources) Atherosclerotic heart disease of [place] coronary artery without angina pectoris; Translations: [Disorder of cardiovascular system] Onset: 08-02-2018 Chronic Coronary atherosclerosis and other heart disease (2 sources) Presence of coronary angioplasty implant and graft; Translations: [PRESENCE COR ANGPLSTY IMPLANT AND GRAFT] Onset: 01-05-2023 Episodic Diabetes mellitus without complication (11 sources) Type 2 diabetes mellitus without complication; Translations: [Type 2 diabetes mellitus without complications] Chronic Diseases of mouth; excluding dental (1 source) Mass of right parotid gland; Translations: [Other diseases of salivary glands] 2024 Episodic Disorders of lipid metabolism (6 sources) Hyperlipidemia, [...] Onset: 02-14-2017 Resolved: 01-04-2019 02-14-2017 Chronic Osteoporosis (9 sources) Osteoporosis; Translations: [Age-related osteoporosis without current pathological fracture] 03-06-2024 Chronic Other aftercare (2 sources) Other skilled nursing (current) drug therapy; Translations: [OTH DETENTION CURRENT DRUG THERAPY] Onset: 01-05-2023 Episodic Other aftercare (1 source) jail (current) use of oral hypoglycemic drugs; Translations: [OTR [employer] USE ORAL HYPOGLYCEMIC DX] Onset: 01-05-2023 Episodic Other connective tissue disease (5 sources) Cramp; Translations: [Cramp and spasm] 02-08-2024 [...] Other hereditary and degenerative nervous system conditions (7 sources) Restless legs; Translations: [Restless legs syndrome] 02-08-2024 Chronic Other hereditary and degenerative nervous system conditions (4 sources) Restless legs syndrome; Translations: [Restless legs syndrome (RLS)] Chronic Other injuries and conditions due to external causes (1 source) History of falling; Translations: [HISTORY OF FALLING] Onset: 01-05-2023 Episodic Other screening for suspected conditions (not mental disorders or infectious disease) (18 sources) Patient encounter status; Translations: [Encounter for screening for osteoporosis] 02-09-2024 Episodic Other skin disorders (2 sources) Finding of neck region; Translations: [Localized swelling, mass and lump, neck] 06-20-2024 Episodic Other skin disorders (2 sources) Localized swelling, mass and lump, neck; Translations: [...] Translations: [Cystocele, midline] Onset: 10-26-2017 10-18-2023 Chronic Rehabilitation care; fitting of prostheses; and adjustment of devices (1 source) Encounter for fitting and adjustment of other specified devices; Translations: [Encounter for fitting and adjustment of other specified devices] Onset: 2024 Chronic Residual codes; unclassified (4 sources) Postmenopausal state; Translations: [Asymptomatic menopausal state] [...] sepsis, unspecified] Onset: 12-29-2022 Episodic Substance-related disorders (12 sources) Nicotine dependence, cigarettes, with withdrawal; Translations: [Nicotine dependence] Onset: 11-15-2022 Chronic Thyroid disorders (1 source) Thyroid nodule; Translations: [Nontoxic single thyroid nodule] 2024 Chronic Unclassified (1 source) CONTACT W/AND (SUSP) [...] glomerular filtrat ion rate (GFR) non- Americanon 06-20-2024 GFR/1.73 sq M.predicted among non-blacks MDRD (S/P/Bld) [Vol rate/Area] mL/min/{1.73_m2} >=60 [facility] Globulin Calc (S) [Mass/Vol] on 06-20-2024 Globulin (S) [Mass/Vol] 3.1 g/dL [facility] Laboratory - Chemistry and C hemistry - challengeon 06-20-2024 Albumin [Mass/Vol] 3.2 g/dL Low 3.4-5.0 [facility] ALP [Catalytic activity/Vol] 122 U/L High 46-116 [facility] ALT [Catalytic activity/Vol] 23 U/L 14-59 [facility] AST [Catalytic activity/Vol] 21 U/L 15-37 [facility] Bilirubin [Mass/Vol] 0.5 mg/dL 0.2-1.0 [facility] Calcium [Mass/Vol] 8.9 mg/dL 8.5-10.1 [facility] Chloride [Moles/Vol] 107 mmol/L 98-107 [facility] CO2 [Moles/Vol] 28.2 mmol/L 21.0-32.0 [facility] Creatinine [Mass/Vol] 0.78 mg/dL 0.55-1.02 [facility] GFR/1.73 sq M.predicted MDRD (S/P/Bld) [Vol rate/Area] mL/min/{1.73_m2} >=60 [facility] Glucose [Mass/Vol] 122 mg/dL High 74-106 [facility] Potassium [Moles/Vol] 4.1 mmol/L 3.5-5.1 [facility] Protein [Mass/Vol] 6.3 g/dL Low 6.4-8.2 [facility] Sodium [Moles/Vol] 141 mmol/L 136-145 [facility] Urea nitrogen [Mass/Vol] 21.0 mg/dL High 7.0-18.0 [facility] Urea nitrogen/Creatinine [Mass ratio] 26.9 mg/mg [facility] Serum or plasma albumin/glob ulin mass ratioon 06-20-2024 Albumin/Globulin [Mass ratio] 1.0 {ratio} [facility] Serum or plasma anion gap de terminationon 06-20-2024 Anion gap [Moles/Vol] 9.9 mmol/L [facility] CBC AND AUTO DIFFon 06-16-20 24 ABSOLUTE BASOPHIL 0.1 X10E9/L Normal 0.0-0.2 [facility] Comment on above: Performed By: #### C BCA, CMP, 05873-5, 72641-3 #### [facility] ([id number]) [address] [place] [address] ABSOLUTE NEUTROPHIL 3.7 X10E9/L Normal 1.5-6.6 [facility] Comment on above: Performed By: #### C MARIE CMP, , #### [facility] ([id number]) [address], [address] [place] [address] Basophils/100 WBC (Bld) 0.9 % Normal [facility] Comment on above: Performed By: #### C BCA, CMP, , #### [facility] ([id number]) [address], [address] [place] [address] Eosinophils (Bld) [#/Vol] 0.3 10*3/uL Normal 0.0-0.4 [facility] Comment on above: Performed By: #### Chantel BCA, CMP, , #### [facility] ([id number]) [address], [address] [place] [address] Eosinophils/100 WBC (Bld) 4.1 % Normal [facility] Comment on above: Performed By: #### C BCA, CMP, , #### [facility] ([id number]) [address], [address] [place] [address] Erythrocyte distribution width (RBC) [Ratio] 14.1 % Normal 11.5-15.0 [facility] Comment on above: Performed By: #### C BCA, CMP, , #### [facility] ([id number]) [address], [address] [place] [address] Hematocrit (Bld) [Volume fraction] 43.4 % Normal 35-47 [facility] Comment on above: Performed By: #### C BCA, CMP, , #### [facility] ([id number]) [address], [address] [place] [address] Hemoglobin (Bld) [Mass/Vol] 14.3 g/dL Normal 11.7-15.5 [facility] Comment on above: Performed By: #### C MARIE CMP, , #### [facility] ([id number]) [address], [address] [place] [address] Lymphocytes (Bld) [#/Vol] 1.8 10*3/uL Normal 1.0-3.5 [facility] Comment on above: Performed By: #### C BCA, CMP, , #### [facility] ([id number]) [address], [facility] [address] [place] [address] Lymphocytes/100 WBC (Bld) 28.5 % Normal [facility] Comment on above: Performed By: #### Chantel BCA, CMP, , #### [facility] ([id number]) [address], [address] [place] [address] MCH (RBC) [Entitic mass] 30.9 pg Normal 27-34 [facility] Comment on above: Performed By: #### Chantel BCA, CMP, , #### [facility] ([id number]) [address], [address] [place] [address] MCHC (RBC) [Mass/Vol] 32.9 g/dL Normal 32-36 [facility] Comment on above: Performed By: #### C BCA, CMP, , #### [facility] ([id number]) [address], [address] [place] [address] MCV (RBC) [Entitic vol] 94 fL Normal 80-100 [facility] Comment on above: Performed By: #### C BCA, CMP, , #### [facility] ([id number]) [address], [address] [place] [address] Monocytes (Bld) [#/Vol] 0.5 10*3/uL Normal 0-0.9 [facility] Comment on above: Performed By: #### C BCA, CMP, 00970-6, #### [facility] ([id number]) [address], [address] [place] [address] Monocytes/100 WBC (Bld) 8.0 % Normal [facility] Comment on above: Performed By: #### C BCA, CMP, , #### [facility] ([id number]) [address], [address] [place] [address] Neutrophils/100 WBC (Bld) 58.5 % Normal [facility] Comment on above: Performed By: #### Chantel BCA, CMP, , #### [facility] ([id number]) [address], [address] [place] [address] Platelet mean volume (Bld) [Entitic vol] 8.7 fL Normal 7-12 [facility] Comment on above: Performed By: #### Chantel BCA, CMP, , #### [facility] ([id number]) [address], [address] [place] [address] Platelets (Bld) [#/Vol] 171 10*3/uL Normal 150-450 [facility] Comment on above: Performed By: #### C BCA, CMP, 85589-7, #### [facility] ([id number]) [address], [address] [place] [address] RBC COUNT 4.63 X10E12/L Normal 3.80-5.20 [facility] Comment on above: Performed By: #### Chantel BCA, CMP, , #### [facility] ([id number]) [address], [address] [place] [address] WBC (Bld) [#/Vol] 6.4 10*3/uL Normal 4.0-11.0 [facility] Comment on above: Performed By: #### C BCA, CMP, 31583-1, 38687-1 #### [facility] ([id number]) [address], [address] [place] [address] COMPREHENSIVE METABOLIC PANE Sal 06-16-2024 Albumin [Mass/Vol] 3.8 g/dL Normal 3.2-5.3 [facility] Comment on above: Performed By: #### C BCA, CMP, 25613-6, #### [facility] ([id number]) [address], [address] [place] [address] ALP [Catalytic activity/Vol] 103 U/L Normal 39-130 [facility] Comment on above: Performed By: #### C BCA, CMP, 06674-6, #### [facility] ([id number]) [address], [address] [place] [address] ALT [Catalytic activity/Vol] 13 U/L Normal 0-31 [facility] Comment on above: Performed By: #### C BCA, CMP, 37798-6, #### [facility] ([id number]) [address], [address] [place] [address] Anion gap [Moles/Vol] 6 mmol/L Normal 5-15 [facility] Comment on above: Performed By: #### C BCA, CMP, 83832-5, #### [facility] ([id number]) [address], [address] [place] [address] AST [Catalytic activity/Vol] 14 U/L Normal 0-41 [facility] Comment on above: Performed By: #### C BCA, CMP, 23834-2, #### [facility] ([id number]) [address], [address] [place] [address] Bilirubin [Mass/Vol] 0.6 mg/dL Normal 0.3-1.2 [facility] Comment on above: Performed By: #### C BCA, CMP, , 58229-6 #### [facility] ([id number]) [address], [address] [place] [address] Calcium [Mass/Vol] 10.0 mg/dL Normal 8.5-10.5 [facility] Comment on above: Performed By: #### C BCA, CMP, , #### [facility] ([id number]) [address], [address] [place] [address] Chloride [Moles/Vol] 107 mmol/L Normal 98-109 [facility] Comment on above: Performed By: #### C BCA, CMP, , #### [facility] ([id number]) [address], [address] [place] [address] CO2 [Moles/Vol] 32 mmol/L Normal 22-32 [facility] Comment on above: Performed By: #### C BCA, CMP, , #### [facility] ([id number]) [address], [address] [place] [address] Creatinine [Mass/Vol] 0.92 mg/dL Normal 0.40-1.00 [facility] Comment on above: Result Comment: METH OD TRACEABLE TO IDMS STANDARD Performed By: #### C BCA, CMP, , #### [facility] ([id number]) [address], [address] [place] [address] GFR/1.73 sq M.predicted among non-blacks MDRD (S/P/Bld) [Vol rate/Area] 66 mL/min/{1.73_m2} Normal >59 [facility] Comment on above: Result Comment: Reported eGFR is based on the CKD-EPI 2020 equation that does not use a race coefficient. Performed By: #### C PARKER SALAZAR, , #### [facility] ([id number]) [address], [address] [place] [address] Glucose [Mass/Vol] 112 mg/dL High 65-99 [facility] Comment on above: Performed By: #### C MARIE, [facility], , #### [facility] ([id number]) [address], [address] [place] [address] Potassium [Moles/Vol] 4.0 mmol/L Normal 3.5-5.0 [facility] Comment on above: Performed By: #### C MARIE, [facility], , #### [facility] ([id number]) [address], [address] [place] [address] Protein [Mass/Vol] 5.8 g/dL Low 6.0-8.0 [facility] Comment on above: Performed By: #### C MARIE, [facility], , 77261-8 #### [facility] ([id number]) [address], [address] [place] [address] Sodium [Moles/Vol] 145 mmol/L Normal 134-146 [facility] Comment on above: Performed By: #### C BCA, CMP, , #### [facility] ([id number]) [address], [address] [place] [address] Urea nitrogen [Mass/Vol] 20 mg/dL Normal 5-27 [facility] Comment on above: Performed By: #### C BCA, CMP, , #### [facility] ([id number]) [address], [address] [place] [address] Lipid 1996 panelon 4 Cholesterol [Mass/Vol] 152 mg/dL Normal 150-200 [facility] Comment on above: Performed By: #### Chantel SALAZAR CMP, , 60146-5 #### [facility] ([id number]) [address], [address] [place] [address] Cholesterol in HDL [Mass/Vol] 53 mg/dL Normal >39 [facility] Comment on above: Result Comment: HDL <40 mg/dL - High Risk HDL > or = 40mg/dL- Desirable HDL >60 mg/dL - Negative Risk Performed By: #### Chantel SALAZAR, PARKER, , 40992-1 #### [facility] ([id number]) [address], [address] [place] [address] Cholesterol in LDL [Mass/Vol] 82 mg/dL Normal <130 [facility] Comment on above: Result Comment: LDL <100 mg/dL - Desirable LDL >160 mg/dL - High Risk Performed By: #### Chantel SALAZAR, PARKER, , 92726-8 #### [facility] ([id number]) [address], [address] [place] [address] Cholesterol in VLDL [Mass/Vol] 17 mg/dL Normal 0-30 [facility] Comment on above: Performed By: #### Chantel SALAZAR, CMP, , 35099-5 #### [facility] ([id number]) [address], [address] [place] [address] CHOLESTEROL:HDL 2.9 Normal 1.0-5.0 [facility] Comment on above: Performed By: #### C BCA, CMP, 60402-3, 39405-7 #### [facility] ([id number]) [address], [address] [place] [address] Triglyceride [Mass/Vol] 84 mg/dL Normal 27-150 [facility] Comment on above: Performed By: #### C MARIE, CMP, 15591-9, 73596-5 #### [facility] ([id number]) [address], [address] [place] [address] MAGNESIUMon 06-16-2024 Magnesium [Mass/Vol] 1.8 mg/dL Normal 1.8-2.6 [facility] Comment on above: Performed By: #### C MARIE, PARKER, 12417-1, 31605-1 #### [facility] ([id number]) [address], [address] [place] [address] Basophils/100 WBC Manual cnt (Bld)on 04-19-2024 Basophils/100 WBC (Bld) 1.0 % 0.2-2.0 [facility] Eosinophils/100 WBC Manual c nt (Bld)on 04-19-2024 Eosinophils/100 WBC (Bld) 3.0 % 0.9-7.0 [facility] Erythrocyte distribution wid th Auto (RBC) [Ratio]on 04-19-2024 Erythrocyte distribution width (RBC) [Ratio] 12.8 % 11.0-15.0 [facility] Estimated glomerular filtrat ion rate (GFR) non- Americanon 04-19-2024 GFR/1.73 sq M.predicted among non-blacks MDRD (S/P/Bld) [Vol rate/Area] 57 mL/min/{1.73_m2} Low >=60 [facility] Globulin Calc (S) [Mass/Vol] on 04-19-2024 Globulin (S) [Mass/Vol] 3.2 g/dL [facility] Hematocrit Auto (Bld) [Volum e fraction]on 04-19-2024 Hematocrit (Bld) [Volume fraction] 44.9 % 36.0-48.0 [facility] Hemoglobin [Mass/volume] in Bloodon 04-19-2024 Hemoglobin (Bld) [Mass/Vol] 14.6 g/dL 12.0-16.0 [facility] Laboratory - Chemistry and C hemistry - challengeon 04-19-2024 Albumin [Mass/Vol] 3.2 g/dL Low 3.4-5.0 [facility] ALP [Catalytic activity/Vol] 126 U/L High 46-116 [facility] ALT [Catalytic activity/Vol] 25 U/L 14-59 [facility] AST [Catalytic activity/Vol] 17 U/L 15-37 [facility] Bilirubin [Mass/Vol] 0.4 mg/dL 0.2-1.0 [facility] Calcium [Mass/Vol] 8.8 mg/dL 8.5-10.1 [facility] Chloride [Moles/Vol] 106 mmol/L 98-107 [facility] CO2 [Moles/Vol] 31.6 mmol/L 21.0-32.0 [facility] Creatinine [Mass/Vol] 0.96 mg/dL 0.55-1.02 [facility] GFR/1.73 sq M.predicted MDRD (S/P/Bld) [Vol rate/Area] mL/min/{1.73_m2} >=60 [facility] Glucose [Mass/Vol] 100 mg/dL 74-106 [facility] Potassium [Moles/Vol] 4.3 mmol/L 3.5-5.1 [facility] Protein [Mass/Vol] 6.4 g/dL 6.4-8.2 [facility] Sodium [Moles/Vol] 143 mmol/L 136-145 [facility] TSH Qn 1.983 m[IU]/L 0.358-3.740 [facility] Urea nitrogen [Mass/Vol] 21.0 mg/dL High 7.0-18.0 [facility] Urea nitrogen/Creatinine [Mass ratio] 21.9 mg/mg [facility] Laboratory - Hematology and Cell countson 04-19-2024 Lymphocytes/100 WBC (Bld) 36.0 % 20.5-60.0 [facility] Monocytes/100 WBC (Bld) 1.0 % Low 1.7-12.0 [facility] Leukocytes [#/volume] correc bear for nucleated erythrocytes in Blood by Automated counon 04-19-2024 WBC corrected for nucl RBC Auto (Bld) [#/Vol] 7.1 10 3/uL 4.0-11.0 [facility] MCH Auto (RBC) [Entitic mass ]on 04-19-2024 MCH (RBC) [Entitic mass] 30.5 pg 26.7-34.0 [facility] MCHC Auto (RBC) [Mass/Vol]on 04-19-2024 MCHC (RBC) [Mass/Vol] 32.5 g/dL 29.9-35.2 [facility] MCV Auto (RBC) [Entitic vol] on 04-19-2024 MCV (RBC) [Entitic vol] 93.7 fL 81.0-99.0 [facility] No Panel Informationon 04-19 25-Hydroxy Vitamin D Total 29.2 ng/mL [facility] Comment on above: <20 ng/mL Vit D defi cient20-<30 ng/mL Vit D [id number] ng/mL Vit D sufficient>100 ng/mL Potential Toxicity Absolute Basophils (Manual) 0.07 10 3/uL 0.00-0.10 [facility] Eosinophils # (Manual) 0.21 10 3/uL 0.00-0.70 [facility] [facility] Lymphocytes # (Manual) 2.55 10 3/uL 1.20-3.80 [facility] Monocytes # (Manual) 0.07 10 3/uL Low 0.30-0.80 [facility] Parathyroid Hormone (Intact) 30 pg/mL 15-65 [facility] Comment on above: Performed at: [facility] [address] [id number] Director: Roshan Swan PhD, Phone: [phone] Reactive Lymphocytes 0.49 [facility] Reactive Lymphocytes 7.0 % [facility] Segmented Neutrophils # (Manual) 3.69 10 3/uL 1.4-6.5 [facility] Platelet mean volume Auto (B ld) [Entitic vol]on 04-19-2024 Platelet mean volume (Bld) [Entitic vol] 10.1 fL 9.5-13.5 [facility] Platelets Auto (Bld) [#/Vol] on 04-19-2024 Platelets (Bld) [#/Vol] 172 10 3/uL 150-450 [facility] RBC Auto (Bld) [#/Vol]on RBC (Bld) [#/Vol] 4.79 10 6/uL 4.20-5.40 [facility] Seg[facility] neutrophils/100 WB C Manual cnt (Bld)on 04-19-2024 Segmented neutrophils/100 WBC (Bld) 52.0 % [facility] Serum or plasma albumin/glob ulin mass ratioon 04-19-2024 Albumin/Globulin [Mass ratio] 1.0 {ratio} [facility] Serum or plasma anion gap de terminationon 04-19-2024 Anion gap [Moles/Vol] 9.7 mmol/L [facility] Estimated glomerular filtrat ion rate (GFR) non- Americanon 02-08-2024 GFR/1.73 sq M.predicted among non-blacks MDRD (S/P/Bld) [Vol rate/Area] 60 mL/min/{1.73_m2} >=60 [facility] Globulin Calc (S) [Mass/Vol] on 02-08-2024 Globulin (S) [Mass/Vol] 3.3 g/dL [facility] HbA1c HPLC (Bld) [Mass fract ion]on 02-08-2024 HbA1c (Bld) [Mass fraction] 6.9 % [facility] Laboratory - Chemistry and C hemistry - challengeon 02-08-2024 Albumin [Mass/Vol] 3.3 g/dL Low 3.4-5.0 [facility] ALP [Catalytic activity/Vol] 119 U/L High 46-116 [facility] ALT [Catalytic activity/Vol] 32 U/L 14-59 [facility] AST [Catalytic activity/Vol] 20 U/L 15-37 [facility] Bilirubin [Mass/Vol] 0.7 mg/dL 0.2-1.0 [facility] Calcium [Mass/Vol] 9.5 mg/dL 8.5-10.1 [facility] Chloride [Moles/Vol] 105 mmol/L 98-107 [facility] CO2 [Moles/Vol] 30.9 mmol/L 21.0-32.0 [facility] Creatinine [Mass/Vol] 0.92 mg/dL 0.55-1.02 [facility] GFR/1.73 sq M.predicted MDRD (S/P/Bld) [Vol rate/Area] mL/min/{1.73_m2} >=60 [facility] Glucose [Mass/Vol] 110 mg/dL High 74-106 [facility] Magnesium [Mass/Vol] 1.8 mg/dL 1.8-2.4 [facility] Potassium [Moles/Vol] 3.9 mmol/L 3.5-5.1 [facility] Protein [Mass/Vol] 6.6 g/dL 6.4-8.2 [facility] Sodium [Moles/Vol] 142 mmol/L 136-145 [facility] Urea nitrogen [Mass/Vol] 21.0 mg/dL High 7.0-18.0 [facility] Urea nitrogen/Creatinine [Mass ratio] 22.8 mg/mg [facility] Serum or plasma albumin/glob ulin mass ratioon 02-08-2024 Albumin/Globulin [Mass ratio] 1.0 {ratio} [facility] Serum or plasma anion gap de terminationon 02-08-2024 Anion gap [Moles/Vol] 10.0 mmol/L [facility] VAGINITIS PANEL PCRon 2023 VAGINITIS [...] clinical presentation to determine patient diagnosis. Normal [facility] Comment on above: Performed By: #### V PPCR #### [facility] ([id number]) [address] [place] [address], [address] [place] [address] TRANSFERRINon 01-12-2023 Transferrin [Mass/Vol] 234 mg/dL Normal 192-364 [facility] Comment on above: Performed By: #### P OCGLUC #### [facility] [address] [place] [address] Dr. Demetrio Kan CBC AUTO DIFFon 01-11-2023 BASO # 0.1 103/ul Normal 0.0-0.1 [facility] Comment on above: Performed By: #### C BC, RETIC #### [facility] [address] [place] [address] Dr. Demetrio Kan Basophils/100 WBC (Bld) 0.8 % Normal 0.2-2.0 [facility] Comment on above: Performed By: #### C BC, RETIC #### [facility] [address] [place] [address] Dr. Demetrio Kan EO # 0.1 103/ul Normal 0.0-0.7 [facility] Comment on above: Performed By: #### C BC, RETIC #### [facility] [address] [place] [address] Dr. Demetrio Kan Eosinophils/100 WBC (Bld) 1.1 % Normal 0.9-7.0 [facility] Comment on above: Performed By: #### C BC, RETIC #### [facility] [address] [place] [address] Dr. Demetrio Kan Erythrocyte distribution width (RBC) [Ratio] 14.6 % Normal 11.0-15.0 [facility] Comment on above: Performed By: #### C BC, RETIC #### [facility] [address] [place] [address] Dr. Demetrio Kan Hematocrit (Bld) [Volume fraction] 39.4 % Normal 36.0-48.0 [facility] Comment on above: Performed By: #### C BC, RETIC #### [facility] [address] [place] [address] Dr. Demetrio Kan Hemoglobin (Bld) [Mass/Vol] 12.6 g/dL Normal 12.0-16.0 [facility] Comment on above: Performed By: #### C PHIL, RETIC #### [facility] [address] [place] [address] Dr. Demetrio Kan IG # 0.05 10e3/ul Critically high 0.00-0.03 [facility] Comment on above: Performed By: #### C PHIL, RETIC #### [facility] [address] [place] [address] Dr. Demetrio Kan IG % 0.6 % Critically high 0.0-0.5 [facility] Comment on above: Performed By: #### C BC, RETIC #### [facility] [address] [place] [address] Dr. Demetrio Kan LYMPH # 1.2 103/ul Normal 1.2-3.8 [facility] Comment on above: Performed By: #### C BC, RETIC #### [facility] [address] [place] [address] Dr. Demetrio Kan Lymphocytes/100 WBC (Bld) 14.3 % Critically low 20.5-60.0 [facility] Comment on above: Performed By: #### C BC, RETIC #### [facility] [address] [place] [address] Dr. Demetrio Kan MANUAL DIFF REQ NO Normal [facility] Comment on above: Performed By: #### C BC, RETIC #### [facility] [address] [place] [address] Dr. Demetrio Kan MCH (RBC) [Entitic mass] 31.0 pg Normal 26.7-34.0 [facility] Comment on above: Performed By: #### C BC, RETIC #### [facility] [address] [place] [address] Dr. Demetrio Kan MCHC (RBC) [Mass/Vol] 32.0 g/dL Normal 29.9-35.2 [facility] Comment on above: Performed By: #### C BC, RETIC #### [facility] [address] [place] [address] Dr. Demetrio Kan MCV (RBC) [Entitic vol] 97.0 fL Normal 81.0-99.0 [facility] Comment on above: Performed By: #### C PHIL, RETIC #### [facility] [address] [place] [address] Dr. Demetrio Kan MONO # 0.7 103/ul Normal 0.3-0.8 [facility] Comment on above: Performed By: #### C PHIL, RETIC #### [facility] [address] [place] [address] Dr. Demetrio Kan Monocytes/100 WBC (Bld) 8.7 % Normal 1.7-12.0 [facility] Comment on above: Performed By: #### C PHIL, RETIC #### [facility] [address] [place] [address] Dr. Demetrio Kan NEUT # 6.3 103/ul Normal 1.4-6.5 [facility] Comment on above: Performed By: #### C BC, RETIC #### [facility] [address] [place] [address] Dr. Demetrio Kan Neutrophils/100 WBC (Bld) 74.5 % Normal 43.0-75.0 [facility] Comment on above: Performed By: #### C BC, RETIC #### [facility] [address] [place] [address] Dr. Demetrio Kan Platelet mean volume (Bld) [Entitic vol] 9.6 fL Normal 9.5-13.5 [facility] Comment on above: Performed By: #### C PHIL, RETIC #### [facility] [address] [address] [address] Demetrio Kan PLT 275 103/ul Normal 150-450 [facility] Comment on above: Performed By: #### C BC, RETIC #### [facility] [address] [address] [address] Demetrio Kan RBC 4.06 106/ul Critically low 4.20-5.[address] [facility] Comment on above: Performed By: #### C BC, RETIC #### [facility] [address] [address] [address] Demetrio Kan WBC 8.5 103/ul Normal 4.0-11.0 [facility] Comment on above: Performed By: #### C BC, RETIC #### [facility] [address] [address] [address] Demetrio Kan FERRITINon 01-11-2023 Ferritin [Mass/Vol] 323.0 ng/mL Critically high 8.0-252.0 [facility] Comment on above: Performed By: #### C MP, BNP, CMADM #### [facility] [address] [address] [address] Demetrio Kan IRON AND TIBCon 01-11-2023 % SATURATION 28.6 % Normal [facility] Comment on above: Performed By: #### C MP, BNP, CMADM #### [facility] [address] [address] [address] Demetrio Kan Iron [Mass/Vol] 79.0 ug/dL Normal 50.0-170.[address] [facility] Comment on above: Performed By: #### C MP, BNP, CMADM #### [facility] [address] [address] [address] Demetrio Kan TIBC DIRECT 276.0 ug/dL Normal 250.0-450.0 [facility] Comment on above: Performed By: #### C MP, BNP, CMADM #### [facility] [address] [address] [address] Demetrio Kan RETICULOCYTEon 01-11-2023 RETIC 1.71 % Normal 0.60-3.10 [facility] Comment on above: Performed By: #### C BC, RETIC #### [facility] [address] [place] [address] Dr. Demetrio Kan VIT B12 AND FOLATEon 023 Cobalamin (Vitamin B12) [Mass/Vol] 771.0 pg/mL Normal 193.0-986.0 [facility] Comment on above: Performed By: #### P OCGLUC #### [facility] [address] [address] [address] Demetrio Kan FOLATE 10.00 ng/mL Normal 8.60-58.90 [facility] Comment on above: Performed By: #### P OCGLUC #### [facility] [address] [address] [address] Demetrio Kan CULTURE SPUTUMon 01-01-2023 CULTURE [...] Trimethoprim/Sulfame thoxazole <=20 S F Normal [facility] Comment on above: Performed By: #### S PUTCX ####[facility] [address] [address]Dr. Demetrio Kan CBC W MANUAL DIFFon 01-01-20 23 ATYPICAL LYMPH # Normal [facility] Comment on above: Performed By: #### C JESSE ####[facility] [address] [id number]. Demetrio Kan ATYPICAL LYMPH % Normal [facility] Comment on above: Performed By: #### C JESSE ####[facility] [address] [address]Dr. Demetrio Kan BAND # 0.0 103/ul Normal 0.0-0.3 [facility] Comment on above: Performed By: #### C JESSE ####[facility] [address] [place], [place] [address]Dr. Demetrio Kan BAND % 0 % Normal 0-5 [facility] Comment on above: Performed By: #### C JESSE ####[facility] [address] [place], [place] [address]Dr. Demetrio Kan BASOM # 0.00 103/ul Normal 0.00-0.10 [facility] Comment on above: Performed By: #### C JESSE ####[facility] [address] [place], [place] [address]Dr. Demetrio Kan BASOM % 0.0 % Critically low 0.2-2.0 [facility] Comment on above: Performed By: #### C JESSE ####[facility] [address] [place], [place] [address]Dr. Demetrio Kan BLAST # Normal [facility] Comment on above: Performed By: #### C JESSE ####[facility] [address] [address]Dr. Demetrio Kan BLAST % Normal [facility] Comment on above: Performed By: #### C JESSE ####[facility] [address] [address]Dr. Demetrio Kan CORRECTED WBC Normal 4.0-11.0 [facility] Comment on above: Performed By: #### C JESSE ####[facility] [address] [place], [place] [address]Og. Demetrio Kan EOS # 0.00 103/ul Normal 0.00-0.70 [facility] Comment on above: Performed By: #### C JESSE ####[facility] [address] [place], [place] [address]Gc. Demetrio Kan EOS% 0.0 % Critically low 0.9-7.0 [facility] Comment on above: Performed By: #### C JESSE ####[facility] [address] [place], [place] [address]Bf. Demetrio Kan HCT 32.1 % Critically low 36.0-48.0 [facility] Comment on above: Performed By: #### Chantel MOLNIA ####[facility] [address] [id number]. Demetrio Kan HGB 10.4 g/dl Critically low 12.0-16.0 [facility] Comment on above: Performed By: #### Chantel MOLINA ####[facility] [address] [id number]. Demetrio Kan LYMPHM # 0.46 103/ul Critically low 1.20-3.[address] [facility] Comment on above: Performed By: #### Chantel MOLINA ####[facility] [address] [place], [place] [address]Ky. Demetrio Kan LYMPHM% 3.0 % Critically low 20.5-60.0 [facility] Comment on above: Performed By: #### Chantel MOLINA ####[facility] [address] [place], [place] [address]Pw. Demetrio Kan MCH 30.1 pg Normal 26.7-34.0 [facility] Comment on above: Performed By: #### Chantel MOLINA ####[facility] [address] [place], [place] [address]Gx. Demetrio Kan MCHC 32.4 g/dl Normal 29.9-35.2 [facility] Comment on above: Performed By: #### Chantel MOLINA ####[facility] [address] [id number]. Demetrio Kan MCV 93.0 fL Normal 81.0-99.0 [facility] Comment on above: Performed By: #### C BCMAN ####[facility] [address] [id number]. Demetrio Kan METAMYELOCYTE # Normal [facility] Comment on above: Performed By: #### C BCTEDDY ####[facility] [address] [id number]. Demetrio Kan METAMYELOCYTE % Normal [facility] Comment on above: Performed By: #### C JESSE ####[facility] [address] [address]Dr. Demetrio Kan MONOM# 0.15 103/ul Critically low 0.30-0.80 [facility] Comment on above: Performed By: #### C JESSE ####[facility] [address] [address]Dr. Demetrio Kan MONOM% 1.0 % Critically low 1.7-12.0 [facility] Comment on above: Performed By: #### C JESSE ####[facility] [address] [place], [place] [address]Dr. Demetrio Kan MPV 9.7 fL Normal 9.5-13.5 [facility] Comment on above: Performed By: #### C JESSE ####[facility] [address] [id number]. Demetrio Kan MYELOCYTE # Normal [facility] Comment on above: Performed By: #### C JESSE ####[facility] [address] [id number]. Demetrio Kan MYELOCYTE % Normal [facility] Comment on above: Performed By: #### C BCTEDDY ####[facility] [address] [place], [place] [address]Dr. Demetrio Kan NRBC Normal [facility] Comment on above: Performed By: #### C JESSE ####[facility] [address] [address]Dr. Demetrio Kan PLT 249 103/ul Normal 150-450 [facility] Comment on above: Performed By: #### C BCMAN ####[facility] [address] [place], [place] [address]YiPham Kan RBC 3.45 106/ul Critically low 4.20-5.40 [facility] Comment on above: Performed By: #### C BCMAN ####[facility] [address] [place], [place] [address]Fr. Demetrio Kan RDW 14.6 % Normal 11.0-15.0 [facility] Comment on above: Performed By: #### C BCMAN ####[facility] [address] [place], [place] [address]TkPham Barfieldjosé miguel Kan SEG # 14.59 103/ul Critically high 1.40-6.50 [facility] Comment on above: Performed By: #### C BCMAN ####[facility] [address] [place], [place] [address]IaPham Kan SEG % 96.0 % Critically high 43.0-75.0 [facility] Comment on above: Performed By: #### C BCMAN ####[facility] [address] [place], [place] [address]KePham Kan WBC 15.2 103/ul Critically high 4.0-11.0 [facility] Comment on above: Performed By: #### C BCMAN ####[facility] [address] [id number]. Demetrio Kan POINT OF CARE GLUCOSEon 12-03 Glucose [Mass/Vol] 294 mg/dL Critically high 74-106 [facility] Comment on above: Performed By: #### C MP, BNP, CMADM #### [facility] [address] [phone] Demetrio Kan Glucose [Mass/Vol] 252 mg/dL Critically high 74-106 [facility] Comment on above: Performed By: #### P OCGLUC #### [facility] [address] [id number] Demetrio Kan PROF 14(COMP METB)on 023 Albumin [Mass/Vol] 1.8 g/dL Critically low 3.4-5.0 [facility] Comment on above: Performed By: #### C MP, BNP, CMADM #### [facility] [address] [address] [address] Demetrio Kan Albumin/Globulin [Mass ratio] 0.5 {ratio} Normal [facility] Comment on above: Performed By: #### C MP, BNP, CMADM #### [facility] [address] [address] [address] Demetrio Kan ALP [Catalytic activity/Vol] 101 U/L Normal 46-116 [facility] Comment on above: Performed By: #### C MP, BNP, CMADM #### [facility] [address] [address] [address] Demetrio Kan ALT [Catalytic activity/Vol] 15 U/L Normal 14-59 [facility] Comment on above: Performed By: #### C MP, BNP, CMADM #### [facility] [address] [address] [address] Demetrio Kan Anion gap [Moles/Vol] 9.7 mmol/L Normal [facility] Comment on above: Performed By: #### C MP, BNP, CMADM #### [facility] [address] [address] [address] Demetrio Kan AST [Catalytic activity/Vol] 13 U/L Critically low 15-37 [facility] Comment on above: Performed By: #### C MP, BNP, CMADM #### [facility] [address] [address] [address] Demetrio Kan Bilirubin [Mass/Vol] 0.2 mg/dL Normal 0.2-1.0 [facility] Comment on above: Performed By: #### C MP, BNP, CMADM #### [facility] [address] [address] [address] Demetrio Kan Calcium [Mass/Vol] 9.0 mg/dL Normal 8.5-10.1 [facility] Comment on above: Performed By: #### C MP, BNP, CMADM #### [facility] [address] [address] [address] Demetrio Kan Chloride [Moles/Vol] 105 mmol/L Normal 98-107 [facility] Comment on above: Performed By: #### C MP, BNP, CMADM #### [facility] [address] [address] [address] Deemtrio Kan CO2 [Moles/Vol] 27.8 mmol/L Normal 21.0-32.0 [facility] Comment on above: Performed By: #### C MP, BNP, CMADM #### [facility] [address] [address] [address] Demetrio Kan Creatinine [Mass/Vol] 0.82 mg/dL Normal 0.55-1.02 [facility] Comment on above: Performed By: #### C MP, BNP, CMADM #### [facility] [address] [place] [address] Dr. Demetrio Kan EGFR-AF IRISH >60 Normal >=60 [facility] Comment on above: Performed By: #### C MP, BNP, CMADM #### [facility] [address] [place] [address] Dr. Demetrio Kan EGFR-NON AF IRISH >60 Normal >=60 [facility] Comment on above: Performed By: #### C MP, BNP, CMADM #### [facility] [address] [place] [address] Dr. Demetrio Kan Globulin (S) [Mass/Vol] 3.8 g/dL Normal [facility] Comment on above: Performed By: #### C MP, BNP, CMADM #### [facility] [address] [address] [address] Demetrio Kan Glucose [Mass/Vol] 268 mg/dL Critically high 74-106 [facility] Comment on above: Performed By: #### C MP, BNP, CMADM #### [facility] [address] [place] [address] Dr. Demetrio Kan Potassium [Moles/Vol] 4.5 mmol/L Normal 3.5-5.1 [facility] Comment on above: Performed By: #### C MP, BNP, CMADM #### [facility] [address] [address] [address] Demetrio Kan Protein [Mass/Vol] 5.6 g/dL Critically low 6.4-8.2 [facility] Comment on above: Performed By: #### C MP, BNP, CMADM #### [facility] [address] [address] [address] Demetrio Kan Sodium [Moles/Vol] 138 mmol/L Normal 136-145 [facility] Comment on above: Performed By: #### C MP, BNP, CMADM #### [facility] [address] [place] [address] Dr. Demetrio Kan Urea nitrogen [Mass/Vol] 30.0 mg/dL Critically high 7.0-18.0 [facility] Comment on above: Performed By: #### C MP, BNP, CMADM #### [facility] [address] [place] [address] Dr. Demetrio Kan Urea nitrogen/Creatinine [Mass ratio] 36.6 mg/mg Normal [facility] Comment on above: Performed By: #### C MP, BNP, CMADM #### [facility] [address] [place] [address] Dr. Demetrio Kan XR CHEST 1 Von 12-31-2022 XR CHEST 1 V EXAM: XR CHEST 1 V HISTORY: SHORTNESS OF BREATH COMPARISON: 12/29/2022. TECHNIQUE: Chest X-ray AP, 1 view. FINDINGS: Support devices: None. 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 Persistent bibasilar airspace opacities. Blunting of costophrenic angles likely represents airspace disease, trace/small effusions and be difficult to exclude. No evidence of pneumothorax. Heart and mediastinum: Stable contours compared to prior examination. Bones: No acute abnormality identified. IMPRESSION: Persistent bibasilar airspace disease/consolidatio ns. Electronically authenticated by: JOCY MUÑOZ Date: 2022-12-31 08:22 Normal [facility] BLOOD GASES BTYon 12-30-2022 02 MODE NASAL CANNULA Normal [facility] Comment on above: Performed By: #### A BG ####[facility] [address] [address]Dr. Demetrio Kan ALLENS TEST Positive [facility] Comment on above: Performed By: #### A BG ####[facility] [address] [address]Dr. Demetrio Kan Base excess Calc (Bld) [Moles/Vol] 6.0 mmol/L Critically high -2.0-2.0 [facility] Comment on above: Performed By: #### A BG ####[facility] [address] [place], [place] [address]Dr. Demetrio Kan BIPAP PRESSURE [facility] Comment on above: Performed By: #### A BG ####[facility] [address] [place], [place] [address]Dr. Demetrio Kan CPAP [facility] Comment on above: Performed By: #### A BG ####[facility] [address] [place], [place] [address]Dr. Demetrio Kan FIO2 Normal [facility] Comment on above: Performed By: #### A BG ####[facility] [address] [place], [place] [address]Dr. Demetrio Kan HCO3 (Bld) [Moles/Vol] 28.7 mmol/L Critically high 22.0-26.0 [facility] Comment on above: Performed By: #### A BG ####[facility] [address] [place], [place] [address]Dr. Demetrio Kan LPM 6 Normal [facility] Comment on above: Performed By: #### A BG ####[facility] [address] [place], [place] [address]Dr. Demetrio Kan MINUTE VOLUME Normal [facility] Comment on above: Performed By: #### A BG ####[facility] [address] [place], [place] [address]Dr. Demetrio Kan Oxygen (Bld) [Partial pressure] 102.0 mm[Hg] Critically high 80.0-100.0 [facility] Comment on above: Performed By: #### A BG ####[facility] [address] [address]Dr. Demetrio Kan Oxygen saturation in Blood 99.1 % Normal 95.0-100.0 [facility] Comment on above: Performed By: #### A BG ####[facility] Qpwyrmhukp[address] [place] [address]Dr. Demetrio Kan PCO2 34.5 mmHg Critically low 35.0-45.0 [facility] Comment on above: Performed By: #### A BG ####[facility] Dbsxompqlp98[address] [place], [place] [address]Dr. Demetrio Kan PEEP [facility] Comment on above: Performed By: #### A BG ####[facility] Moaaisvuuj1727[address] [place], [place] [address]Dr. Demetrio Kan pH (Bld) 7.529 [pH] Critically high 7.350-7.450 [facility] Comment on above: Result Comment: Prev iously reported as: 7.520 On 12/30/2022 07:13 By LM4 Performed By: #### A BG ####[facility] Lznksoaujb40[address] [place], [place] [address]Dr. Demetrio Kan PIP Normal [facility] Comment on above: Performed By: #### A BG ####[facility] Jyedsvotcm529[address] [place], [place] [address]Dr. Demetrio Kan PS Normal [facility] Comment on above: Performed By: #### A BG ####[facility] Ymyqwavrkr6[address] [place], [place] [address]Dr. Demetrio Kan PUNCTURE SITE RR Normal [facility] Comment on above: Performed By: #### A BG ####[facility] Qnnsyxjwrh1067[address] [place], [place] [address]Dr. Demetrio Kan RATE Normal [facility] Comment on above: Performed By: #### A BG ####[facility] Tfjggvutbi5[address] [place], [place] [address]Dr. Demetrio Kan VENT MODE Normal [facility] Comment on above: Performed By: #### A BG ####[facility] Cpfhhczpli9206 [place] [address]Dr. Demetrio Kan VT Normal [facility] Comment on above: Performed By: #### A BG ####[facility] Jwfmfsiucb8324 [place] [address]Dr. Demertio Kan CBC W MANUAL DIFFon 12-31-19 23 ATYPICAL LYMPH # Normal [facility] Comment on above: Performed By: #### C BCMAN ####[facility] Fmmcmbiahs1545 [place] [address]Dr. Demetrio Kan ATYPICAL LYMPH % Normal [facility] Comment on above: Performed By: #### C BCMAN ####[facility] Hhabfvaukj1873 [place] [address]Dr. Demetrio Kan BAND # 0.0 103/ul Normal 0.0-0.3 [facility] Comment on above: Performed By: #### C BCMAN ####[facility] Hhfoaeakjs[address] [place], [place] [address]Dr. Demetrio Kan BAND % 0 % Normal 0-5 [facility] Comment on above: Performed By: #### C BCMAN ####[facility] Pzylnlugkt0[address] [place], [place] [address]Dr. Demetrio Kan BASOM # 0.00 103/ul Normal 0.00-0.10 [facility] Comment on above: Performed By: #### C BCMAN ####[facility] Raczbxmrri8409[address] [place], [place] [address]Dr. Demetrio Kan BASOM % 0.0 % Critically low 0.2-2.0 [facility] Comment on above: Performed By: #### C BCMAN ####[facility] Cwcgbdudgx9435[address] [place], [place] [address]Dr. Demetrio Kan BLAST # Normal [facility] Comment on above: Performed By: #### C BCTEDDY ####[facility] Zilnrbzshr9[address] [place], [place] [address]Dr. Demetrio Kan BLAST % Normal [facility] Comment on above: Performed By: #### C JESSE ####[facility] Ynsqsutgej5675 [place], [place] [address]Th. Demetrio Kan CORRECTED WBC Normal 4.0-11.0 [facility] Comment on above: Performed By: #### C JESSE ####[facility] Tltlzunuvg1705 [place], [place] [address]No. Demetrio Kan EOS # 0.00 103/ul Normal 0.00-0.70 [facility] Comment on above: Performed By: #### C JESSE ####[facility] Bhuwpqhvvd0771 [place], [place] [address]As. Demetrio Kan EOS% 0.0 % Critically low 0.9-7.0 [facility] Comment on above: Performed By: #### C JESSE ####[facility] Rrkmkhnrjn8995 [place], [place] [address]Zi. Demetrio Kan HCT 30.2 % Critically low 36.0-48.0 [facility] Comment on above: Performed By: #### C JESSE ####[facility] Jxkfefkkpo4998 [place], [place] [address]Du. Demetrio Kan HGB 9.9 g/dl Critically low 12.0-16.0 [facility] Comment on above: Performed By: #### C JESSE ####[facility] Rmfuxrwaqz6477 [place], [place] [address]Ye. Demetrio Kan LYMPHM # 0.14 103/ul Critically low 1.20-3.[address] [facility] Comment on above: Performed By: #### C JESSE ####[facility] Ftzlgpzofy9685 [place], [place] [address]Xh. Demetrio Kan LYMPHM% 1.0 % Critically low 20.5-60.0 [facility] Comment on above: Performed By: #### C JESSE ####[facility] Kznjyriwmu4173 [place], [place] [address]Yh. Demetrio Kan MCH 30.1 pg Normal 26.7-34.0 [facility] Comment on above: Performed By: #### C JESSE ####[facility] Kzhdkadztx4608 [place] [id number]. Demetrio Kan MCHC 32.8 g/dl Normal 29.9-35.2 [facility] Comment on above: Performed By: #### C JESSE ####[facility] Qlzlobdxit7922 [place] [id number]. Demetrio Kan MCV 91.8 fL Normal 81.0-99.0 [facility] Comment on above: Performed By: #### C JESSE ####[facility] Snqabpfknd7905 [place] [id number]. Demetrio Kan METAMYELOCYTE # Normal [facility] Comment on above: Performed By: #### C JESSE ####[facility] Qufdiiltsc9[address] [place], [place] [address]Dr. Demetrio Kan METAMYELOCYTE % Normal [facility] Comment on above: Performed By: #### C JESSE ####[facility] Tiphxfekml8289[address] [place], [place] [address]Dr. Demetrio Kan MONOM# 0.00 103/ul Critically low 0.30-0.[address] [facility] Comment on above: Performed By: #### C JESSE ####[facility] Kcdmexljfb7435[address] [place], [place] [address]Dr. Demetrio Kan MONOM% 0.0 % Critically low 1.7-12.0 [facility] Comment on above: Performed By: #### Chantel MOLINA ####[facility] Cehhwezizm[address] [place], [place] [address]Dr. Demetrio Kan MPV 9.9 fL Normal 9.5-13.5 [facility] Comment on above: Performed By: #### C JESSE ####[facility] Lbdgzhzrvk[address] [place], [place] [address]Dr. Demetrio Kan MYELOCYTE # Normal [facility] Comment on above: Performed By: #### C JESSE ####[facility] Sjqaxubrai5811 [place] [id number]. Demetrio Kan MYELOCYTE % Normal [facility] Comment on above: Performed By: #### C JESSE ####[facility] Bdzcvdxauo8703 [place], [place] [address]Qv. Demetrio Kan NRBC Normal [facility] Comment on above: Performed By: #### C JESSE ####[facility] Tddopqjmwa9252 [place], [place] [address]Qc. Demetrio Kan PLT 200 103/ul Normal 150-450 [facility] Comment on above: Performed By: #### C JESSE ####[facility] Fovpiitopg6563 [place], [place] [address]Gc. Demetrio Kan RBC 3.29 106/ul Critically low 4.20-5.40 [facility] Comment on above: Performed By: #### C JESSE ####[facility] Bvmkdwawxo8865 [place] [phone]. Demetrio Kan RDW 14.3 % Normal 11.0-15.0 [facility] Comment on above: Performed By: #### C JESSE ####[facility] Jziawtmuwg7262 [place] [phone]. Demetrio Kan SEG # 13.76 103/ul Critically high 1.40-6.50 [facility] Comment on above: Performed By: #### C JESSE ####[facility] Zljylsottu4128 [place] [id number]. Demetrio Kan SEG % 99.0 % Critically high 43.0-75.0 [facility] Comment on above: Performed By: #### C JESSE ####[facility] Riuxdtefdv[address] [place], [place] [address]IaPhma Kan WBC 13.9 103/ul Critically high 4.0-11.0 [facility] Comment on above: Performed By: #### C JESSE ####[facility] Gshquzdiss9464 [place] [phone]. Demetrio Kan POINT OF CARE GLUCOSEon 12-03 Glucose [Mass/Vol] 281 mg/dL Critically high 74-106 [facility] Comment on above: Performed By: #### P OCGLUC #### [facility] [address] [place], [place] [address] Dr. Demetrio Kan Glucose [Mass/Vol] 219 mg/dL Critically high 74-106 [facility] Comment on above: Performed By: #### C MP, BNP, CMADM #### [facility] [address] [place] [address] [address] Demetrio Kan Glucose [Mass/Vol] 333 mg/dL Critically high 74-106 [facility] Comment on above: Performed By: #### P OCGLUC #### [facility] [address] [place] [address] [address] Demetrio Kan Glucose [Mass/Vol] 265 mg/dL Critically high 74-106 [facility] Comment on above: Performed By: #### C MP, BNP, CMADM #### [facility] [address] [place] [address] [address] Demetrio Kan PROF 14(COMP METB)on 023 Albumin [Mass/Vol] 1.7 g/dL Critically low 3.4-5.0 [facility] Comment on above: Performed By: #### C MP ####[facility] Phuhzrgxbp0291 [place] [address]DrPham Kan Albumin/Globulin [Mass ratio] 0.4 {ratio} [facility] Comment on above: Performed By: #### C MP ####[facility] Dtnipicwjz7983 [place] [address]DrPham Kan ALP [Catalytic activity/Vol] 103 U/L Normal 46-116 [facility] Comment on above: Performed By: #### C MP ####[facility] Yuoggswhvh8849 [place] [address]DrPham Kan ALT [Catalytic activity/Vol] 11 U/L Critically low 14-59 [facility] Comment on above: Performed By: #### C MP ####[facility] Jjhsjluitb7096 [place] [address]DrPham Kan Anion gap [Moles/Vol] 8.8 mmol/L Normal [facility] Comment on above: Performed By: #### C MP ####[facility] Bygfwgpxpm8004 [place] [address]Dr. Demetrio Kan AST [Catalytic activity/Vol] 10 U/L Critically low 15-37 [facility] Comment on above: Performed By: #### C MP ####[facility] Rxfmoyvlrm7025[address] [place], [place] [address]Dr. Demetrio Kan Bilirubin [Mass/Vol] 0.3 mg/dL Normal 0.2-1.0 [facility] Comment on above: Performed By: #### C MP ####[facility] Xpaneyhjby3924[address] [place], [place] [address]Dr. Demetrio Kan Calcium [Mass/Vol] 8.8 mg/dL Normal 8.5-10.1 [facility] Comment on above: Performed By: #### C MP ####[facility] Etzwpkyued433784 [address] [place], [place] [address]Dr. Demetrio Kan Chloride [Moles/Vol] 103 mmol/L Normal 98-107 [facility] Comment on above: Performed By: #### C MP ####[facility] Emypexgjbe248784 [address] [place], [place] [address]Dr. Demetrio Lucius CO2 [Moles/Vol] 30.9 mmol/L Normal 21.0-32.0 [facility] Comment on above: Performed By: #### C MP ####[facility] Umwhsbeezv8638[address] [place], [place] [address]Dr. Demetrio Lucius Creatinine [Mass/Vol] 0.69 mg/dL Normal 0.55-1.02 [facility] Comment on above: Performed By: #### C MP ####[facility] Tqkraiylbv492[address] [place], [place] [address]Dr. Carolynejosé miguel Lucius EGFR-AF IRISH >60 Normal >=60 [facility] Comment on above: Performed By: #### C MP ####[facility] Dhrqkqmmix9790[address] [place], [place] [address]Dr. Demetrio Kan EGFR-NON AF IRISH >60 Normal >=60 [facility] Comment on above: Performed By: #### C MP ####[facility] Rvacsqwqbg005184 [address] [place], [place] [address]Dr. Demetrio Kan Globulin (S) [Mass/Vol] 3.9 g/dL Normal [facility] Comment on above: Performed By: #### C MP ####[facility] Qjipztwjzt6221 [place] [address]Dr. Demetrio Kan Glucose [Mass/Vol] 216 mg/dL Critically high 74-106 [facility] Comment on above: Performed By: #### C MP ####[facility] Kshcsongxe9465 [place] [address]Dr. Demetrio Kan Potassium [Moles/Vol] 2.7 mmol/L Critically low 3.5-5.1 [facility] Comment on above: Performed By: #### C MP ####[facility] Odjuophqqd5169 [place] [address]Dr. Demetrio Kan Protein [Mass/Vol] 5.6 g/dL Critically low 6.4-8.2 [facility] Comment on above: Performed By: #### C MP ####[facility] Ognsmfsotd4357[address] [place], [place] [address]Dr. Demetrio Kan Sodium [Moles/Vol] 140 mmol/L Normal 136-145 [facility] Comment on above: Performed By: #### C MP ####[facility] Bxgwxbfjxd1101[address] [place], [place] [address]Dr. Demetrio Kan Urea nitrogen [Mass/Vol] 16.0 mg/dL Normal 7.0-18.0 [facility] Comment on above: Performed By: #### C MP ####[facility] Mkfvavgnqy497[address] [place], [place] [address]Dr. Demetrio Kan Urea nitrogen/Creatinine [Mass ratio] 23.2 mg/mg Normal [facility] Comment on above: Performed By: #### C MP ####[facility] Vetxdqcoeb85[address] [place] [address]Dr. Demetrio Kan BNPon 12-29-2022 Natriuretic peptide B (Bld) [Mass/Vol] 824.0 pg/mL Normal <=900.0 [facility] Comment on above: Performed By: #### C MP, BNP, CMADM #### [facility] [address] [place] [address] [address] Demetrio Kan CARDIAC IGNACIA ADMITon 023 CK [Catalytic activity/Vol] 43 U/L Normal 26-192 [facility] Comment on above: Performed By: #### C MP, BNP, CMADM #### [facility] [address] [place] [address] [address] Demetrio Kan CK.MB [Mass/Vol] 0.91 ng/mL Normal <=3.60 [facility] Comment on above: Performed By: #### C MP, BNP, CMADM #### [facility] [address] [place] [address] [address] Demetrio Kan HSTROP 18.1 pg/mL Normal 4.0-51.3 [facility] Comment on above: Result Comment: CUT- OFF POINTS HAVE BEEN ESTABLISHED BASED ON THE FOURTH UNIVERSAL DEFINITIONS OF MYOCARDIAL INFARCTION. THE UPPER REFERENCE LIMIT (URL) OF TROPONIN, DEFINED THE 99TH PERCENTILE OF cTnI DISTRIBUTION IN A REFERENCE POPULATION, HAS BEEN CONFIRMED THE DECISION THRESHOLD FOR OK DIAGNOSIS. Performed By: #### C MP, BNP, CMADM #### [facility] [address] [place] [address] [address] Demetrio Kan KAVEH 63 ng/mL Normal 9-82 [facility] Comment on above: Performed By: #### C MP, BNP, CMADM #### [facility] [address] [place] [address] [address] Demetrio Kan CBC AUTO DIFFon 12-29-2022 BASO # 0.1 103/ul Normal 0.0-0.1 [facility] Comment on above: Performed By: #### C BC ####[facility] Ycqhjcuvlu89[address] [place] [address]DrPham Kna Basophils/100 WBC (Bld) 0.4 % Normal 0.2-2.0 [facility] Comment on above: Performed By: #### C BC ####[facility] Nmjfnphemj8930 [place] [address]Dr. Demetrio Kan EO # 0.1 103/ul Normal 0.0-0.7 [facility] Comment on above: Performed By: #### C BC ####[facility] Namvqdvcay9659 [place] [id number]. Demetrio Kan Eosinophils/100 WBC (Bld) 0.4 % Critically low 0.9-7.0 [facility] Comment on above: Performed By: #### C BC ####[facility] Ypicpcrqbf4435 [place] [id number]. Demetrio Kan Erythrocyte distribution width (RBC) [Ratio] 14.1 % Normal 11.0-15.0 [facility] Comment on above: Performed By: #### C BC ####[facility] Orjsvlfudn8604 [place] [id number]. Demetrio Kan Hematocrit (Bld) [Volume fraction] 37.6 % Normal 36.0-48.0 [facility] Comment on above: Performed By: #### C BC ####[facility] Hitglfgddl852[address] [place], [place] [address]Dr. Demetrio Kan Hemoglobin (Bld) [Mass/Vol] 12.4 g/dL Normal 12.0-16.0 [facility] Comment on above: Performed By: #### C BC ####[facility] Dcqrdigbrs7[address] [place], [place] [address]Dr. Demetrio Kan IG # 0.12 10e3/ul Critically high 0.00-0.03 [facility] Comment on above: Performed By: #### C BC ####[facility] Ygiienxzgp728[address] [place], [place] [address]Dr. Demetrio Kan IG % 0.7 % Critically high 0.0-0.[address] [facility] Comment on above: Performed By: #### C BC ####[facility] Eupldsesnq8[address] [place] [address]Dr. Demetrio Kan LYMPH # 0.4 103/ul Critically low 1.2-3.8 [facility] Comment on above: Performed By: #### C BC ####[facility] Jphydnscrc820[address] [place], [place] [address]Dr. Demetrio Kan Lymphocytes/100 WBC (Bld) 2.4 % Critically low 20.5-60.0 [facility] Comment on above: Performed By: #### C BC ####[facility] Zkliayctya1102 [place] [id number]. Demetrio Kan MANUAL DIFF REQ NO Normal [facility] Comment on above: Performed By: #### C BC ####[facility] Kpwkyjucpu9329 [place] [id number]. Demetrio Kan MCH (RBC) [Entitic mass] 30.5 pg Normal 26.7-34.0 [facility] Comment on above: Performed By: #### C BC ####[facility] Ffhbxmepih2517 [place] [id number]. Demetrio Kan MCHC (RBC) [Mass/Vol] 33.0 g/dL Normal 29.9-35.2 [facility] Comment on above: Performed By: #### C BC ####[facility] Omzhhikinz58[address] [place], [place] [address]Dr. Demetrio Kan MCV (RBC) [Entitic vol] 92.6 fL Normal 81.0-99.0 [facility] Comment on above: Performed By: #### C BC ####[facility] Ondmbhfywm[address] [place], [place] [address]Dr. Demetrio Kan MONO # 1.0 103/ul Critically high 0.3-0.[address] [facility] Comment on above: Performed By: #### C BC ####[facility] Xgtzawvfll807[address] [place], [place] [address]Dr. Demetrio Kan Monocytes/100 WBC (Bld) 5.6 % Normal 1.7-12.0 [facility] Comment on above: Performed By: #### C BC ####[facility] Pylwbcxlpw47[address] [place] [address]Dr. Demetrio Kan NEUT # 16.1 103/ul Critically high 1.4-6.5 [facility] Comment on above: Performed By: #### C BC ####[facility] Hdtexqncpq299[address] [place], [place] [address]Dr. Demetrio Kan Neutrophils/100 WBC (Bld) 90.5 % Critically high 43.0-75.0 [facility] Comment on above: Performed By: #### C BC ####[facility] Cmaxmozcmx1265 [place] [address]Dr. Deemtrio Kan Platelet mean volume (Bld) [Entitic vol] 9.5 fL Normal 9.5-13.5 [facility] Comment on above: Performed By: #### C BC ####[facility] Muwinizhbt[address] [place] [address]Dr. Demetrio Kan PLT 245 103/ul Normal 150-450 [facility] Comment on above: Performed By: #### C BC ####[facility] Vxokhntmzt33[address] [place] [address]Dr. Demetrio Kan RBC 4.06 106/ul Critically low 4.20-5.[address] [facility] Comment on above: Performed By: #### C BC ####[facility] Vafbrpgwzg7118 [place] [address]Dr. Demetrio Kan WBC 17.7 103/ul Critically high 4.0-11.0 [facility] Comment on above: Performed By: #### C BC ####[facility] Qufrshuiib5[address] [place] [address]Dr. Demetrio Kan CBC W MANUAL DIFFon 12-30-19 23 ANISOCYTOSIS 1+ Normal [facility] Comment on above: Performed By: #### P OCGLUC #### [facility] [address] [place] [address] Dr. Demetrio Kan ATYPICAL LYMPH # Normal [facility] Comment on above: Performed By: #### P OCGLUC #### [facility] [address] [place] [address] Dr. Demetrio Kan ATYPICAL LYMPH % Normal [facility] Comment on above: Performed By: #### P OCGLUC #### [facility] [address] [place] [address] [address] Demetrio Kan BAND # 0.7 103/ul Critically high 0.0-0.[address] [facility] Comment on above: Performed By: #### P OCGLUC #### [facility] [address] [place] [address] Dr. Demetrio Kan BAND % 3 % Normal 0-5 [facility] Comment on above: Performed By: #### P OCGLUC #### [facility] [address] [place] [address] [address] Demetrio Kan BASOM # 0.00 103/ul Normal 0.00-0.10 [facility] Comment on above: Performed By: #### P OCGLUC #### [facility] [address] [place] [address] [address] Demetrio Kan BASOM % 0.0 % Critically low 0.2-2.0 [facility] Comment on above: Performed By: #### P OCGLUC #### [facility] [address] [place] [address] Dr. Demetrio Kan BLAST # Normal [facility] Comment on above: Performed By: #### P OCGLUC #### [facility] [address] [place] [address] Dr. Demetrio Kan BLAST % Normal [facility] Comment on above: Performed By: #### P OCGLUC #### [facility] [address] [place] [address] Dr. Demetrio Kan CORRECTED WBC Normal 4.0-11.0 [facility] Comment on above: Performed By: #### P OCGLUC #### [facility] [address] [place] [address] Dr. Demetrio Kan EOS # 0.00 103/ul Normal 0.00-0.70 [facility] Comment on above: Performed By: #### P OCGLUC #### [facility] [address] [place] [address] Dr. Demetrio Kan EOS% 0.0 % Critically low 0.9-7.0 [facility] Comment on above: Performed By: #### P OCGLUC #### [facility] [address] [place] [address] Dr. Demetrio Kan HCT 33.1 % Critically low 36.0-48.0 [facility] Comment on above: Performed By: #### P OCGLUC #### [facility] [address] [place] [address] Dr. Demetrio Kan HGB 11.1 g/dl Critically low 12.0-16.0 [facility] Comment on above: Performed By: #### P OCGLUC #### [facility] [address] [place] [address] [address] Demetrio Kan LYMPHM # 0.95 103/ul Critically low 1.20-3.80 [facility] Comment on above: Performed By: #### P OCGLUC #### [facility] [address] [place] [address] [address] Demetrio Kan LYMPHM% 4.0 % Critically low 20.5-60.0 [facility] Comment on above: Performed By: #### P OCGLUC #### [facility] [address] [place] [address] Dr. Demetrio Kan MCH 30.8 pg Normal 26.7-34.0 [facility] Comment on above: Performed By: #### P OCGLUC #### [facility] [address] [place] [address] Dr. Demetrio Kan MCHC 33.5 g/dl Normal 29.9-35.2 [facility] Comment on above: Performed By: #### P OCGLUC #### [facility] [address] [place] [address] Dr. Demetrio Kan MCV 91.9 fL Normal 81.0-99.0 [facility] Comment on above: Performed By: #### P OCGLUC #### [facility] [address] [place] [address] Dr. Demetrio Kan METAMYELOCYTE # Normal [facility] Comment on above: Performed By: #### P OCGLUC #### [facility] [address] [place] [address] Dr. Demetrio Kan METAMYELOCYTE % Normal [facility] Comment on above: Performed By: #### P OCGLUC #### [facility] [address] [place] [address] Dr. Demetrio Kan MONOM# 1.42 103/ul Critically high 0.30-0.80 [facility] Comment on above: Performed By: #### P OCGLUC #### [facility] [address] [place] [address] [address] Demetrio Kan MONOM% 6.0 % Normal 1.7-12.0 [facility] Comment on above: Performed By: #### P OCGLUC #### [facility] [address] [place] [address] [address] Demetrio Kan MPV 9.7 fL Normal 9.5-13.5 [facility] Comment on above: Performed By: #### P OCGLUC #### [facility] [address] [place] [address] [address] Demetrio Kan MYELOCYTE # Normal [facility] Comment on above: Performed By: #### P OCGLUC #### [facility] [address] [place] [address] [address] Demetrio Kan MYELOCYTE % Normal [facility] Comment on above: Performed By: #### P OCGLUC #### [facility] [address] [place] [address] Dr. Demetrio Kan NRBC Normal [facility] Comment on above: Performed By: #### P OCGLUC #### [facility] [address] [address] [address] Demetrio Kan PLT 235 103/ul Normal 150-450 [facility] Comment on above: Performed By: #### P OCGLUC #### [facility] [address] [place] [address] Dr. Demetrio Kan RBC 3.60 106/ul Critically low 4.20-5.[address] [facility] Comment on above: Performed By: #### P OCGLUC #### [facility] [address] [place] [address] Dr. Demetrio Kan RDW 14.2 % Normal 11.0-15.0 [facility] Comment on above: Performed By: #### P OCGLUC #### [facility] [address] [place] [address] Dr. Demetrio Kan SEG # 20.62 103/ul Critically high 1.40-6.50 [facility] Comment on above: Performed By: #### P OCGLUC #### [facility] [address] [address] [address] Demetrio Kan SEG % 87.0 % Critically high 43.0-75.[address] [facility] Comment on above: Performed By: #### P OCGLUC #### [facility] [id number] Demetrio Kan WBC 23.7 103/ul Critically high 4.0-11.0 [facility] Comment on above: Performed By: #### P OCGLUC #### [facility] [id number] Demetrio Kan CTA CHEST WO W [...] ARMAND PATEL Date: 2022-12-29 03:05 Normal [facility] CULTURE BLOODon 12-29-2022 Microscopic examination of blood, culture Culture Observations: NO GROWTH AT 5 DAYS. Normal [facility] Comment on above: Performed By: #### B LDCX2 ####[facility] [address] [id number]. Demetrio Kan Performed By: #### B LDCX1 ####[facility] [address] [address]DrPham Kan Covid-19 PCR (CVDTB)on 12-02 SARS-CoV-2 (COVID-19) RNA BRUNO+probe Ql (Unsp spec) Not detected Normal NOT DETECTED [facility] Comment on above: Result Comment: When [...] this test is supported by the Auto Claims Adjuster of Health and Human Service's declaration that [...] be used). Performed By: #### C VDTBH ####[facility] [address] [place], [place] [address]Dr. Demetrio Kan INFLUENZA A AND B AGon 12-29 INFLUCITY OF HOPE, [place] SEE BELOW Normal [facility] Comment on above: Result Comment: Nega tive for Flu A protein angiten. Infection due to Flu A cannot be ruled out. Flu A angiten in the sample may be below the detection limit of the test. Performed By: #### I NFLUAB ####[facility] [address] [place] [address]. Demetrio Kan INFLUBNEGH SEE BELOW Normal [facility] Comment on above: Result Comment: Nega tive for Flu B protein antigen. Infection due to Flu B cannot be ruled out. Flu B antigen in the sample may be below the detection limit of the test. Performed By: #### I NFLUAB ####[facility] [address] [place], [place] [address]Uo. Demetrio Kan INFLUENZA A AG Negative Normal NEGATIVE SEE COMMENT [facility] Comment on above: Performed By: #### I NFLUAB ####[facility] [address] [place], [place] [address]Zn. Demetrio Kan INFLUENZA B AG Negative Normal NEGATIVE SEE COMMENT [facility] Comment on above: Performed By: #### I NFLUAB ####[facility] [address] [id number]. Demetrio Kan LACTATE/LACTIC ACIDon 2022 Lactate [Moles/Vol] 1.7 mmol/L Normal 0.4-2.0 [facility] Comment on above: Performed By: #### L ACT #### [facility] [address] [address] [address] Demetrio Kan LIPID PROFILEon 12-29-2022 CHOL-HDL RATIO NORM SEE BELOW Normal [facility] Comment on above: Result Comment: 3.3 - 4.4 LOW RISK 4.4 - 7.1 AVERAGE RISK 7.1 - 11.0 MODERATE RISK >11.0 HIGH RISK Performed By: #### P OCGLUC #### [facility] [address] [address] [address] Demetrio Kan Cholesterol [Mass/Vol] 98 mg/dL Normal <=200 [facility] Comment on above: Performed By: #### P OCGLUC #### [facility] [address] [address] [address] Demetrio Kan Cholesterol in HDL [Mass/Vol] 32 mg/dL Critically low 40-60 [facility] Comment on above: Performed By: #### P OCGLUC #### [facility] [address] [address] [address] Demetrio Kan Cholesterol in LDL [Mass/Vol] 53.4 mg/dL Normal [facility] Comment on above: Performed By: #### P OCGLUC #### [facility] [address] [address] [address] Demetrio Kan Cholesterol.total/Ch olesterol in HDL [Mass ratio] 3.1 {ratio} Normal [facility] Comment on above: Performed By: #### P OCGLUC #### [facility] [address] [address] [address] Demetrio Kan HDL NORMAL > or = 60 mg/dl - LOW CARDIOVASCULAR RISK <40 mg/dl - HIGH CARDIOVASCULAR RISK Normal [facility] Comment on above: Performed By: #### P OCGLUC #### [facility] [address] [address] [address] Demetrio Kan LDL CALC NORMAL SEE BELOW Normal [facility] Comment on above: Result Comment: <100 mg/dl OPTIMAL 100 - 129 mg/dl NEAR OR ABOVE OPTIMAL 130 - 159 mg/dl BORDERLINE HIGH 160 - 189 mg/dl HIGH >190 mg/dl VERY HIGH Performed By: #### P OCGLUC #### [facility] [address] [address] [address] Demetrio Kan Triglyceride [Mass/Vol] 63 mg/dL Normal <=150 [facility] Comment on above: Performed By: #### P OCGLUC #### [facility] [address] [address] [address] Demetrio Kan VLDL CALC 12.6 mg/dL Normal [facility] Comment on above: Performed By: #### P OCGLUC #### [facility] [address] [address] [address] Demetrio Kan MAGNESIUMon 12-29-2022 Magnesium [Mass/Vol] 1.7 mg/dL Critically low 1.8-2.4 [facility] Comment on above: Performed By: #### P OCGLUC #### [facility] [address] [address] [address] Demetrio Kan POINT OF CARE GLUCOSEon 12-02 Glucose [Mass/Vol] 181 mg/dL Critically high 74-106 [facility] Comment on above: Performed By: #### P OCGLUC #### [facility] [address] [address] [address] Demetrio Kan Glucose [Mass/Vol] 283 mg/dL Critically high 74-106 [facility] Comment on above: Performed By: #### P OCGLUC ####[facility] [address] [place], [place] [address]ZqDr. Demetrio Kan Glucose [Mass/Vol] 237 mg/dL Critically high 74-106 [facility] Comment on above: Performed By: #### P OCGLUC ####[facility] [address] [place], [place] [address]FyDr. Demetrio Kan Glucose [Mass/Vol] 144 mg/dL Critically high 74-106 [facility] Comment on above: Performed By: #### P OCGLUC ####[facility] [address] [place], [place] [address]AqDr. Demetrio Kan PROF 14(COMP METB)on 023 Albumin [Mass/Vol] 2.2 g/dL Critically low 3.4-5.0 [facility] Comment on above: Performed By: #### C MP, BNP, CMADM #### [facility] [address] [address] [address] Demetrio Kan Albumin/Globulin [Mass ratio] 0.5 {ratio} [facility] Comment on above: Performed By: #### C MP, BNP, CMADM #### [facility] [address] [address] [address] Demetrio Kan ALP [Catalytic activity/Vol] 128 U/L Critically high 46-116 [facility] Comment on above: Performed By: #### C MP, BNP, CMADM #### [facility] [address] [address] [address] Demetrio Kan ALT [Catalytic activity/Vol] 14 U/L Normal 14-59 [facility] Comment on above: Performed By: #### C MP, BNP, CMADM #### [facility] [address] [address] [address] Demetrio Kan Anion gap [Moles/Vol] 11.3 mmol/L Normal [facility] Comment on above: Performed By: #### C MP, BNP, CMADM #### [facility] [address] [address] [address] Demetrio Kan AST [Catalytic activity/Vol] 14 U/L Critically low 15-37 [facility] Comment on above: Performed By: #### C MP, BNP, CMADM #### [facility] [address] [address] [address] Demetrio Kan Bilirubin [Mass/Vol] 0.7 mg/dL Normal 0.2-1.0 [facility] Comment on above: Performed By: #### C MP, BNP, CMADM #### [facility] [address] [place] [address] Dr. Demetrio Kan Calcium [Mass/Vol] 9.2 mg/dL Normal 8.5-10.1 [facility] Comment on above: Performed By: #### C MP, BNP, CMADM #### [facility] [address] [place] [address] Dr. Demetrio Kan Chloride [Moles/Vol] 100 mmol/L Normal 98-107 [facility] Comment on above: Performed By: #### C MP, BNP, CMADM #### [facility] [address] [place] [address] Dr. Demetrio Kan CO2 [Moles/Vol] 31.6 mmol/L Normal 21.0-32.0 [facility] Comment on above: Performed By: #### C MP, BNP, CMADM #### [facility] [address] [place] [address] Dr. Demetrio Kan Creatinine [Mass/Vol] 0.75 mg/dL Normal 0.55-1.02 [facility] Comment on above: Performed By: #### C MP, BNP, CMADM #### [facility] [address] [place] [address] Dr. Demetrio Kan EGFR-AF IRISH >60 Normal >=60 [facility] Comment on above: Performed By: #### C MP, BNP, CMADM #### [facility] [address] [place] [address] Dr. Demetrio Kan EGFR-NON AF IRISH >60 Normal >=60 [facility] Comment on above: Performed By: #### C MP, BNP, CMADM #### [facility] [address] [place] [address] Dr. Demetrio Kan Globulin (S) [Mass/Vol] 4.4 g/dL Normal [facility] Comment on above: Performed By: #### C MP, BNP, CMADM #### [facility] [address] [address] [address] Demetrio Kan Glucose [Mass/Vol] 178 mg/dL Critically high 74-106 [facility] Comment on above: Performed By: #### C MP, BNP, CMADM #### [facility] [address] [address] [address] Demetrio Kan Potassium [Moles/Vol] 2.9 mmol/L Critically low 3.5-5.1 [facility] Comment on above: Performed By: #### C MP, BNP, CMADM #### [facility] [address] [place] [address] Dr. Demetrio Kan Protein [Mass/Vol] 6.6 g/dL Normal 6.4-8.2 [facility] Comment on above: Performed By: #### C MP, BNP, CMADM #### [facility] [address] [place] [address] Dr. Demetrio Kan Sodium [Moles/Vol] 140 mmol/L Normal 136-145 [facility] Comment on above: Performed By: #### C MP, BNP, CMADM #### [facility] [address] [place] [address] Dr. Demetrio Kan Urea nitrogen [Mass/Vol] 17.0 mg/dL Normal 7.0-18.0 [facility] Comment on above: Performed By: #### C MP, BNP, CMADM #### [facility] [address] [place] [address] Dr. Demetrio Kan Urea nitrogen/Creatinine [Mass ratio] 22.7 mg/mg Normal [facility] Comment on above: Performed By: #### C MP, BNP, CMADM #### [facility] [address] [place] [address] Dr. Demetrio Kan PROF CHEM 8 (BAS METB)on Anion gap [Moles/Vol] 10.0 mmol/L Normal [facility] Comment on above: Performed By: #### B MP ####[facility] [address] [address]Dr. Demetrio Kan Calcium [Mass/Vol] 8.9 mg/dL Normal 8.5-10.1 [facility] Comment on above: Performed By: #### B MP ####[facility] [address] [address]Dr. Demetrio Kan Chloride [Moles/Vol] 107 mmol/L Normal 98-107 [facility] Comment on above: Performed By: #### B MP ####[facility] [address] [address]Dr. Demetrio Kan CO2 [Moles/Vol] 31.4 mmol/L Normal 21.0-32.0 [facility] Comment on above: Performed By: #### B MP ####[facility] [address] [place], [place] [address]Dr. Demetrio Kan Creatinine [Mass/Vol] 0.73 mg/dL Normal 0.55-1.02 [facility] Comment on above: Performed By: #### B MP ####[facility] [address] [place], [place] [address]Dr. Demetrio Kan EGFR-AF IRISH >60 Normal >=60 [facility] Comment on above: Performed By: #### B MP ####[facility] [address] [place], [place] [address]Dr. Demetrio Kan EGFR-NON AF IRISH >60 Normal >=60 [facility] Comment on above: Performed By: #### B MP ####[facility] [address] [address]Dr. Demetrio Kan Glucose [Mass/Vol] 148 mg/dL Critically high 74-106 [facility] Comment on above: Performed By: #### B MP ####[facility] [address] [address]Dr. Demetrio Kan Potassium [Moles/Vol] 3.4 mmol/L Critically low 3.5-5.1 [facility] Comment on above: Performed By: #### B MP ####[facility] [address] [address]Dr. Demetrio Kan Sodium [Moles/Vol] 145 mmol/L Normal 136-145 [facility] Comment on above: Performed By: #### B MP ####[facility] [address] [address]Dr. Demetrio Kan Urea nitrogen [Mass/Vol] 16.0 mg/dL Normal 7.0-18.0 [facility] Comment on above: Performed By: #### B MP ####[facility] [address] [place], [place] [address]Dr. Demetrio Kan Urea nitrogen/Creatinine [Mass ratio] 21.9 mg/mg Normal [facility] Comment on above: Performed By: #### B MP ####[facility] [address] [place], [place] [address]Dr. Demetrio Kan PROTIMEon 12-29-2022 INR Coag (PPP) [Relative time] 0.99 {INR} Normal [facility] Comment on above: Performed By: #### P TT, PT ####[facility] [address] [place], [place] [address]Dr. Demetrio Kan INR GUIDELINES SEE BELOW Normal [facility] Comment on above: Result Comment: TRAVIS RED INR: 2.0 - 3.0 CONDITIONS NOT LISTED BELOW 2.5 - 3.5 FOR PROSTHETIC HEART VALVE REPLACEMENT 2.5 - 3.5 RECURRENT THROMBOSIS Performed By: #### P TT, PT ####[facility] [address] [place], [place] [address]Dr. Demetrio Kan PT Coag (PPP) [Time] 10.5 s Normal 9.0-11.6 [facility] Comment on above: Performed By: #### P TT, PT ####[facility] [address] [place], [place] [address]Dr. Demetrio Kan PTTon 12-29-2022 aPTT Coag (Bld) [Time] 27.3 s Normal 22.3-36.2 [facility] Comment on above: Performed By: #### P TT, PT ####[facility] [address] [address]Dr. Demetrio Kan SPUTUM GRAM STAINon 12-30-19 COMMENTS Normal [facility] Comment on above: Performed By: #### P OCGLUC #### [facility] [address] [address] [address] Demetrio Kan DIPHTHEROIDS Normal [facility] Comment on above: Performed By: #### P OCGLUC #### [facility] [address] [address] [address] Demetrio Kan EPITHELIALS <25 Normal [facility] Comment on above: Performed By: #### P OCGLUC #### [facility] [address] [address] [address] Demetrio Kan FUNGAL ELEMENTS Normal [facility] Comment on above: Performed By: #### P OCGLUC #### [facility] [address] [address] [address] Demetrio Kan GRAM NEG BACILLI Normal [facility] Comment on above: Performed By: #### P OCGLUC #### [facility] [address] [address] [address] Demetrio Kan GRAM NEG DIPPLOCOCCI Normal [facility] Comment on above: Performed By: #### P OCGLUC #### [facility] [address] [address] [address] Demetrio Kan GRAM POS BACILLI FEW Normal [facility] Comment on above: Performed By: #### P OCGLUC #### [facility] [address] [address] [address] Demetrio Kan GRAM POSITIVE COCCI MODERATE Normal [facility] Comment on above: Performed By: #### P OCGLUC #### [facility] [address] [address] [address] Demetrio Kan WBC (Bld) [#/Vol] 10*3/uL [facility] Comment on above: Performed By: #### P OCGLUC #### [facility] [address] [address] [address] Demetrio Kan SYMPTOMATIC COVID-19 ANTIGEN on 12-29-2022 EUA Statement SEE BELOW Normal [facility] Comment on above: Result Comment: [...] By: #### C MP, BNP, CMADM #### [facility] [address] [place] [address] Dr. Demetrio Kan SARS-CoV-2 (COVID-19) RNA BRUNO+probe Ql (Unsp spec) Negative Normal NEGATIVE [facility] Comment on above: Performed By: #### C MP, BNP, CMADM #### [facility] [address] [address] [address] Demetrio Kan TSHon 12-29-2022 TSH 0.370 uIU/mL Normal 0.358-3.740 [facility] Comment on above: Performed By: #### P OCGLUC #### [facility] [address] [place] [address] Dr. Demetrio Kan XR CHEST 1 Von [...] by: GAIL SCHAEFER Date: 2022-12-28 23:48 Normal [facility] CT LUNG CANCER SCREENINGon 0 11-17-2022 CT [...] by: JEAN MOONEY Date: 2022-11-17 14:47 Normal [facility] Coding Summary.on 11-17-2022 Coding Summary. [id number] Gh0bWw+PGhlYWQ+PE1FV KNmR91shNUezH0EB2wPZ J3XWBXCLCXMEW3EHK1oe IJ6WPdrO6NczySu JvkdxZBcSC93XCj6TAN1 vEaaEMpitU7kcNImW1b5 OyFgBR74dQ90UTasUQPs IqV4ZmVstjqoiYLf N1xuYtRspRTdApe+PHRh YmxlIHdpZHRoPScxMDAl JhBpmXufXW8vFt5mFKFn LWNvbGxhcHNlOiBj v1gmWGXvFKhyKL8gnGus Z9PjyAO7YDKqh8b7Ma75 dHI+VVFmPFB0jVvwFEiq p650MnFsa3qmLMX6 vUNjSEjaHZD4Z38df9O1 WFSdCVCiYQG3vGX7yE6b fApfaxaxS1JciDNrXyF6 TYF6sZVwyG5oiZec dktyuP8xSbz+C05HTW9W QOWZPH0AHyj2T3LqQrki dHI+XX00CGMmBM95uNRj iPRxw2gdaMs4CqIt ANPgFHJ5yHinEBefw7Za UFYkD21cgLGgc9A8DMTv zRjpbSDuBtWmqOE6oQ7a JFcppqwld2ryfqmj Exmfa7iweb10dF33P93v BZkuTEDcDBS8CHKdPIJl kQyzgw2jyF3yKy0+IDxj u1rwl3xmdNn8CaCr XHKsffMhfXrwWVM7n1Ik Dk83T5LzzTeyn0OwSzn1 dd89dOQrs8Z2mYY7XPvo CFDyyC6jXGxlTnM1 EGAiVoWhzQ57iFTgXDxl Rn2jhFsizKryPN5pSOPl vracQOAafM3yGJAxkPQs wCakAW3xGEVulzqt w454DiArFLS2UMCjkBZc Y9CfdD1yMmHpUGAxDFSm V2UdgIGqYNznL111AMyo BmV7JABkfxCqB1Xj SPJvgAquGnR7k0H3Oy7K u9HkwefoFXS6DEqeCTAm MkI3KyZzCfX9L7HbGtv7 IJTrfOjqMH6pN0Pb CDZpmmyecdmhuKS3YTIn ZFFeeR15wNKuLUmsWz5s i4N3c106BVEqECMynX18 Hw8jgZyyOSChuUVS uE6iznucm2izpkoaBsTi BLPaTLx7OTx9VGTskRwu ClLbGIE7BdY3KNR6bLPe fT9phBnfvehezQ3n Oyc+P45fkV2tAXF1XHB8 haunMXPsrnKwOD36CR88 F5RkWthwtWXwmDW+PGRp tfVhhDdeUP5uVxGw o0ukj4DgVHprW2RtTZTe MLjvVlf2UZWqQBH9oRC7 yB3eLUWdYUjdb8B6aQW3 E9UjddIcoe0wr6yj TSStRKhnU37ypNWog4V2 BVCvsBI6ZBIggBygWwNy fP74Iyk+YTZuaPsch4Ru Ptqpw4jrd2hkzRx0 IjMwJSIgdmFsaWduPSJ0 m5WfWv11O49sWBdiJRXs HIYvQNKfEVPvvChqpr2c sE0cKy3+PGNvbCB3 bPY6hB9jEUXoVuW5BHgs J777OiFqzQGgKmryp3mr u2hnmWf9QvXaYAAawbFo jEqxSOM8j3PlPa01 A88pXQjoFLHaZTDbRYAt ZARcjMkedh5ogV9fUe5+ RW3tk6ilbs86rS17kTI+ GAKwPJQ7nZirYMfx WSFotA5hTCyuOjL3PEBy CjBunQ77yDQgDQorFs7n hGfqiTnnZS0zQSSdrojx b002QwHqg5xnRCFw iHJbWUoqCNN9V61qp1O3 TLSjBDXiSCG2sXX3hQ2z bGlnbjogbGVmdDsgdmVy pCpqHRguRYtoJ053 IHRvcDsnPlBhdGllbnQg XvJaREy5T1EpKxy8XCOa kVibRW3dyDTyWDybQs0k oCfzwOtvBB6bEFIj jsuxo105IhZme0ovNGFt gRVgMEeyULY1Y72de1Q4 MHOpWWCiFCJ5hKA8wU8a bGlnbjogbGVmdDsg pnFvvYihZXoaQJojK850 IHRvcDsnPkJpcnRoIERh kJE1LQ26OT82lEXqy3R8 gIA1T7WoBPMynfpo hsurpMI8EAGgQTNpqE85 Qj4lpWwwXo8dXSNnNER3 QRHpwZUoS9SmzY6hJuKm BRLfADDlU2IltSBn YEwdG384QSugNpM8FSBt htRvP2SxDPDcoMoxQyY3 c4Y4Qm9TZ7N5LF01XU71 zDNit4E2lKJ0K0Hl XPTgzyvligeflRQ6FNCi VWCrbN20Il1kpUacRc9t SEXwUFG4IWUrjNNeX3Ms fF1aOhAsUQRhOCDq M3QfhEXmHMogH032SIcm UsB7EJGulqQqU2CnWUWh iRobYeP1h9C4Pl0WPRl6 TR17VO97wVPhu6L3 cEY1W1SqXZJgdsxkinnn vDY4VSBfNSQivV09Cg3x zHadWx9pUVGoBSP9HAMm qVJyW2FygP5kCgUg CBBzLTKnX0DsjFRkILrw T490ZBtyMtN4NRPlvtFa L8JdVPCewDwmIlW1m8T4 Qb4ZBFKdZO99AUU8 sRT9SI05LR37A0NlXzyd dGFibGU+PHRhYmxlIHdp ZHRoPScxMDAlJyBzdHls XO5xBx8jXOWuYFKn bClabTSjYgXkz4pdXAKv XUyhMK6ebWecI8JwuVG8 TSFtv1j8Gw65T09hF8By dXA+OZUzsUB8pNN3 iY9gFmAjHlH9YSmxW107 RkIbuKNhUuewp8mim3nb aBe6UzJ6SMAvsnOmaTkk CNA7u3MeCl84S88o IHdpZHRoPSIxNSUiIHZh cPyznu7goT0aNi6+PGNv vSS9gZR9zZ0uZuHkDiX0 WZmwD847UaAauOEy Wkjar2swu7jrePy8VoYq EQXcikKubSzrYBH4a5Vv Ex29W5RniAtxi5WtJsa8 gc67pOOyv1P1fRI2 C5FfMXRyujankRRdpKdy WU9iSPTyxmliZBAazM0m LURcZ1r3VwZjFvC1QAdt Q2SoqbN1UOOuxGTo FSkySPE1G03sb5C4MTBs FIZhVIB6uMU4hE3egUxc bjogbGVmdDsgdmVydGlj JHdhHQsnP625RXVm jIziQEHqeS2vESTunSPz qCxcNL9aGRLvmnmmQu9E UVNDKoshALWAZ7qTFI03 JK60hJYtl5P2fDX6 I9YwPRPzjqrbonhreXG2 QODnTBVziK79wMJqNJoh So5gd6I5u463BQJwWJTs nS88Bs6feZzeVQUz hTUInM3hckmyz8whfqbm OrByLNJiQEr5EVh9MUNc pAbxNcMaBSA4FsG4QKL7 mNExtU5wzRuibxfx bT6oPyy+MDkvMzAvMTk1 MDwvdGQ+PIThQOY3uBlg DCinDSVltM8jDLCbS5v7 EwNcCgN3NEjjG5Fg CHJolwyrGt38rT6zPtSm NcY2MKmdF9EdxvX3DKDe oFJyXQwbDTP1Z90xx7Q0 UIObVOJeKRC5yJH1 cF2nyWqrhuhjeOSylFyi tzZgrMwqURzoVTswT633 IHRvcDsnPjcyIFllYXJz GI80HT22tAYkh8H4 bGP0J8UfDVPpoutaovlj xRD0GOWsETRmzG51fEUs SIazSl6gp9B7x524TVJc FJJnuB56Bw2yyGoh JGMiqHOIoB8tzffyl7ar dbuqNsEpEQPjPKb1KEx6 CRBcwQvwPhZpIDO9WxC5 ZUA8eHAwbT2gwFtn voasaK8kVgo+RmVtYWxl EM28DA72pRMfy7I7aKY3 L1YrUJWhauvomgdumNY2 NJAbXZApmI85bTOd DMdgVc0wz0M4r121ABMa GZUwrM05Ok0rbJxbASTm dFDJdA5gkmpni6oawryo ZdFcXUJhUNd5BRq7 URWuuSlgBtYgBRJ7FcT3 CIR1jGFidS6piZfjtofy yY9dRwx+KJFzPNExm5Xo e0TgUW29JG88D5Jt PjwvdGFibGU+PHRhYmxl IHdpZHRoPScxMDAlJyBz aNczAL4iZf0oLJRiZIZa uAemsLWzYtJny7sk KWOzVQjxJS3qsAkxX1Jx eRW5JBZir8k8Fj02L68l P7XtbHT+XLYimHB4aXN4 lU3fRpZeUrH0AEvm C738SlBuoPRpRxocj5jk r0aqbZk3BoOdVMApivCw eKttDYK9j8AmFb81G95k IHdpZHRoPSIyMCUi QLQsvCdtij1jwY9zEx6+ WSVexYR0cBG7fR0jUzWb MtM7GHsmP767ZdVehZOu VrffD39nJ9AivSJ+ LRYoVqk7EZPbfWfbIN5q oRAtIZtpBa6zAII3YeFh QeYeLUcqJ0LnAHSkzuta esvjyKT3ZAMjVWNp pK52Ab1uuEwhCh9qYUSl LTW7GCMqzGZgD0UypD4a BxIlNCEfFAKeT5PeiKDu SKpaC777MNehHhZ9 LOYdauUaQ7OjWEYkiLfz HoL2d7H0Hu4HdJsgfGGd SD1oVjFsOTx2S9SqBim0 TYMtfEhhUW8oiWEh PChyNq1xwNxwpSabCZ1l ZHOljsizj994XwVrk8uu PKNwpTYfBPorXYS8D10b x2K6FUBtGNCvPIY5 mPJ5pG6jrEluphfncHJf dDsgdmVydGljYWwtYWxp Q218LVIgxVvuTiMHKxx8 Z5YsOqx2ZPZhbUzw OT6yiMFbLPjzLo7psDbt mPjhMU1xJLAwyhwxn250 QpMnr2faUPHtcGHaQByo YZO9U58rj6B0MZKm MIMsAHC7mJL9xV2sjNnb bjogbGVmdDsgdmVydGlj XLbaEXahA440EAPgqHvp Ye6OXhs0J4TuUxo0 JXCknZvnXV1hxJIjWWup Xr0kaGbydOjkGI6aCBMt asltd438MnOlj9moBWFg bIXmQFrrQTP3A63j m8F4UTDyUUNeAMU9oQU3 nA0teUdsotkyoIDulVlu vySubVcpLFcaQTziE449 IHRvcDsnPlBheWVy OjwvdGQ+WW26mc76E6Eh KknbPgi8WXWeWQX2mLH1 lC5mYLAiUQtat9T3hDC2 A4ZaosSmyk7wq6lg YXBz (more content not included)... Normal [facility] Blood Gas Art, with Lytes, G maria t, [place] 11-11-2022 a/A Ratio Art 72.90 % Normal >=0.80 [facility] Comment on above: Performed By: #### [id number] #### [facility] [address] [place] [address] AaDO2 Art 24.8 mmHg High 5.0-15.0 [facility] Comment on above: Performed By: #### [id number] #### [facility] [address] [place] [address] Allens Test Positive Normal [facility] Comment on above: Performed By: #### [id number] #### [facility] [address] [place] [address] Base Excess Arterial 4.8 mmol/L Normal >=2.8 [facility] Comment on above: Performed By: #### [id number] #### [facility] [address] [place] [address] cCa2+ Art 4.72 mg/dL Normal 4.40-5.30 [facility] Comment on above: Performed By: #### [id number] #### [facility] [address] [place] [address] cCl- Art 105.0 mmol/L Normal 101.0-111.0 [facility] Comment on above: Performed By: #### [id number] #### [facility] [address] [place] [address] cGlu Art 125 mg/dL High 55-99 [facility] Comment on above: Performed By: #### [id number] #### [facility] [address] [place] [address] cK+ Art 4.0 mmol/L Normal 3.5-5.3 [facility] Comment on above: Performed By: #### [id number] #### [facility] [address] [place] [address] cLac Art 1.1 mmol/L Normal .5-2.2 [facility] Comment on above: Performed By: #### [id number] #### [facility] [address] [place] [address] lead driver+ Art 143.0 mmol/L Normal 135.0-145.0 [facility] Comment on above: Performed By: #### 4 [id number] #### [facility] [address] [place] [address] Drawn by [employer] Invalid Interpretation Code [facility] Comment on above: Performed By: #### 4 [id number] #### [facility] [address] [place] [address] FCOHb Art 1.1 % Low 1.5-4.9 [facility] Comment on above: Result Comment: Refe rence range Nonsmoker <1.5% Smoker <5.0% Heavy Smoker <9.0% Performed By: #### 4 [id number] #### [facility] [address] [place] [address] FIO2 BG 21 Invalid Interpretation Code [facility] Comment on above: Performed By: #### 4 [id number] #### [facility] [address] [place] [address] FMetHb Art 0.3 % Normal 0.0-1.9 [facility] Comment on above: Performed By: #### 4 [id number] #### [facility] [address] [place] [address] FO2Hb Art 93.3 % Normal 92.0-100.0 [facility] Comment on above: Performed By: #### 4 [id number] #### [facility] [address] [place] [address] HCO3 (Bld) [Moles/Vol] 28.7 mmol/L High 22.0-26.0 [facility] Comment on above: Performed By: #### 4 [id number] #### [facility] [address] [place] [address] Hemoglobin (Bld) [Mass/Vol] 13.5 g/dL Normal 12.0-16.0 [facility] Comment on above: Performed By: #### 4 [id number] #### [facility] [address] [place] [address] Oxygen saturation in Blood 94.6 % Low 95.0-100.0 [facility] Comment on above: Performed By: #### 4 [id number] #### [facility] [address] [place] [address] P CO2 Arterial 46.1 mmHg High 35.0-45.0 [facility] Comment on above: Performed By: #### 4 [id number] #### [facility] [address] [place] [address] P O2 Arterial 66.9 mmHg Low 80.0-100.0 [facility] Comment on above: Performed By: #### 4 [id number] #### [facility] [address] [place] [id number] pH Arterial 7.423 Normal 7.350-7.450 [facility] Comment on above: Performed By: #### 4 [id number] #### [facility] [address] [place] [address] Sample Site R Radial Normal [facility] Comment on above: Performed By: #### 4 [id number] #### [facility] [address] [place] [address] Sample Type Arterial Draw Normal [facility] Comment on above: Performed By: #### 4 [id number] #### [facility] [address] [place], [place] [id number] CARDIAC STRESS TESTon 2022 CARDIAC STRESS TEST [...] ambulatory oxygen. Clinical correlation required. Normal [facility] HEMOGLOBINon 11-11-2022 Hemoglobin (Bld) [Mass/Vol] 13.1 g/dL Normal 12.0-16.0 [facility] Comment on above: Performed By: #### P OCGLUC #### [facility] [address] [place], [place] [address] Dr. Demetrio Kan LAB TESTINGon 11-11-2022 RECV HEADER SEE SCANNED REPORT IN [facility] Comment on above: Performed By: #### M ISC ####[facility] [address] [place] [address]Dr. Demetrio Kan REV FROM REF LAB 11/11/2022 [facility] Comment on above: Performed By: #### M ISC ####[facility] [address] [place], [place] [address]HiDr. Demetrio Kan SENT TO REF LAB 11/11/[address] [facility] Comment on above: Performed By: #### M ISC ####[facility] [address] [place] [id number]. Demetrio Kan Physician Orderon 11-11-2022 Physician Order [id number] 0#[id number]:127 Normal [facility] Vital Signs Date Time Vital Sign Value Performing Clinician Facility 06-20-2024 13:03040 Body height 152.4 cm [facility] [place] [facility] 06-20-2024 13:030400 Body mass index (BMI) [Ratio] 20.9 kg/m2 [facility] 06-20-2024 13:030400 Body temperature 97.4 [degF] [facility] 06-20-2024 13:030400 Body weight 48.53 kg [facility] [place] [facility] 06-20-2024 13:03-0400 Diastolic blood pressure 76 mm[Hg] [facility] 06-20-2024 13:030400 Heart rate 64 /min [facility] [place] [facility] 06-20-2024 13:03-0400 SaO2% (BldA) [Mass fraction] 92 % [facility] 06-20-2024 13:030400 Systolic blood pressure 122 mm[Hg] [facility] 03-06-2024 13:260400 Body height 152.4 cm [facility] [place] [facility] 03-06-2024 13:26-0400 Body mass index (BMI) [Ratio] 21.2 kg/m2 [facility] 03-06-2024 13:26-0400 Body weight 49.44 kg [facility] [place] [facility] 03-06-2024 13:26-0400 Diastolic blood pressure 62 mm[Hg] [facility] 03-06-2024 13:26-0400 Heart rate 71 /min [facility] [place] [facility] 03-06-2024 13:26-0400 SaO2% (BldA) [Mass fraction] 98 % [facility] 03-06-2024 13:26-0400 Systolic blood pressure 106 mm[Hg] [facility] 02-08-2024 11:03-0400 Body height 152.4 cm [facility] [place] [facility] 02-08-2024 11:03-0400 Body mass index (BMI) [Ratio] 21.2 kg/m2 [facility] 02-08-2024 11:03-0400 Body weight 49.44 kg [facility] [place] [facility] 02-08-2024 11:03-0400 Diastolic blood pressure 60 mm[Hg] [facility] 02-08-2024 11:03-0400 Heart rate 88 /min [facility] [place] [facility] 02-08-2024 11:03-0400 SaO2% (BldA) [Mass fraction] 96 % [facility] 02-08-2024 11:03-0400 Systolic blood pressure 104 mm[Hg] [facility] 10-18-2023 13:13-0500 Body mass index (BMI) [Ratio] 21.64 kg/m2 Tasha Padgett MD Work Phone: [facility] 10-18-2023 13:13-0500 Body weight 50.26 kg Tasha Padgett MD Work Phone: [facility] 10-18-2023 13:13-0500 Diastolic blood pressure 56 mm[Hg] Tasha Padgett MD Work Phone: [facility] 10-18-2023 13:13-0500 Systolic blood pressure 108 mm[Hg] Tasha Padgett MD Work Phone: [facility] 08-03-2023 11:00-0400 Body height Lazara Mary Other [facility] Other 08-03-2023 11:00-0400 Body mass index (BMI) [Ratio] 20.89 kg/m2 Lazara Mary Other [facility] Other 08-03-2023 11:00-0400 Body weight 48.54 kg Lazara Mary Other [facility] Other 08-03-2023 11:00-0400 Diastolic blood pressure 64 mm[Hg] Lazara Mary Other [facility] Other 08-03-2023 11:00-0400 SaO2% (BldA) [Mass fraction] 98 % Lazara Mary Other [facility] Other 08-03-2023 11:00-0400 Systolic blood pressure 115 mm[Hg] Lazara Mary Other [facility] Other Encounters Encounter Date Encounter Type Care Provider Facility Start: 2024 End: 2024 ambulatory TASHA PADGETT [facility] Start: 2024 ambulatory [facility] Work Phone: Start: 2024 Non-patient / Non-visit [facility] Work Phone: Start: 06-20-2024 End: 06-20-2024 ambulatory [facility] Work Phone: Start: 06-20-2024 End: 06-20-2024 Patient encounter procedure [facility] Work Phone: Start: 06-16-2024 End: 06-16-2024 ambulatory [facility] Start: 06-11-2024 End: 06-11-2024 ambulatory [facility] Start: 04-19-2024 Non-patient / Non-visit [facility] Phys[facility] Work Phone: Start: 04-17-2024 End: 04-17-2024 ambulatory [facility] Work Phone: Start: 04-17-2024 End: 04-17-2024 Patient encounter procedure [facility] Physician [employer] Work Phone: Start: 04-17-2024 End: 04-17-2024 ambulatory [facility] Start: 03-06-2024 End: 03-06-2024 ambulatory [facility] Work Phone: Start: 03-06-2024 End: 03-06-2024 Patient encounter procedure [facility] Physician [employer] Work Phone: Start: 02-09-2024 Patient encounter procedure [facility] Start: 02-08-2024 End: 02-08-2024 ambulatory [facility] Work Phone: Start: 02-08-2024 End: 02-08-2024 Patient encounter procedure [facility] Physician [facility] Work Phone: Start: 01-30-2024 End: 01-30-2024 [facility] Start: 01-24-2024 End: 01-24-2024 ambulatory MICHELLE CHIN [facility] Start: 01-17-2024 End: 01-17-2024 ambulatory [facility] Start: 01-17-2024 End: 01-18-2024 ambulatory [facility] Start: 10-18-2023 End: 10-18-2023 ambulatory TASHA PADGETT [facility] Start: 10-18-2023 End: 10-18-2023 Office outpatient visit 15 minutes Tasha Padgett MD Work Phone: [facility] Obstetrics/Gynecology Comment on above: Midline cystocele (P rimary Dx) Start: 08-08-2023 End: 08-08-2023 ambulatory Lazara Hernandez Other [facility] Other Start: 08-08-2023 Telephone encounter Lazara Darden her [facility] Start: 08-03-2023 End: 08-03-2023 ambulatory Lazara Hernandez Other [facility] Other Start: 08-03-2023 Office outpatient ne w 30 minutes Lazara Hernandez [facility] Start: 01-11-2023 End: 01-12-2023 ambulatory NAGA SAMSA . Facility: Start: 12-29-2022 End: 12-31-2022 Evaluation and management of inpatient DR WESLEY VALDIVIA Facility: Start: 11-17-2022 End: 11-18-2022 ambulatory NAGA SAMSA . Facility: Start: 11-11-2022 End: 11-12-2022 ambulatory NAGA P SAMSA Facility:[facility] Start: 11-11-2022 End: 11-12-2022 ambulatory NAGA SAMSA . Facility: Start: 01-24-2018 End: 09-08-2020 Patient encounter status Tasha Padgett MD Work Phone: [facility] Work Phone: Procedures Date Procedure Procedure Detail Performing Clinician Start: 06-11-2024 Follow-up visit Follow-up VINCE WATTS Start: 01-30-2024 Follow-up visit Follow-up LIBERTY RAMÍREZ Start: 10-28-2021 Adult depression screening assessment Tasha Padgett MD Work Phone: History of placement of stent for coronary artery disease Lazara Hernandez Other Plan of Treatment Date Care Activity Detail Author Start: 10-18-2024 Adult BMI Screening Adult BMI Screening [facility] Start: 10-18-2024 Tobacco Screening Tobacco Screening [facility] Start: 2024 Patient referral [facility] Work Phone: Start: 03-06-2024 Patient referral [facility] Work Phone: Start: 01-30-2024 End: 01-30-2024 Patient encounter procedure 01/30/2024 1:00 PM EDT Office Visit [facility] [address] [place] [address] [address] [facility] [place] [address] 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, 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 [address], [address] [place] [address] [facility] Start: 01-24-2024 End: 01-24-2024 Patient encounter procedure [facility] Start: 01-17-2024 End: 01-17-2024 Patient encounter procedure 01/17/2024 1:00 PM EDT [facility] [address] [place] [id number] Tasha Padgett MD [address] [place], [place] [id number] [facility] Start: 10-28-2022 Depression Screening Depression Screening [facility] Start: 2015 Fall Risk Screening Fall Risk Screening [facility] Start: 1969 DTaP,Tdap and Td Vaccines (1 - Tdap) DTaP,Tdap and Td Vaccines ( - Tdap) [facility] Start: 1950 Medicare Annual Wellness Visit Medicare Annual Wellness Visit [facility] Start: 1950 Tobacco Counseling Tobacco Counseling [facility] Comprehensive metabo lic 1999 panel - Serum or Plasma [facility] Comprehensive metabo lic 2000 panel - Serum or Plasma [facility] CT Neck [facility] DXA Skeletal system. axial Views for bone density [facility] MG Breast - bilatera l Screening [facility] Patient referral [facility] Work Phone: [facility] Immunizations Immunization Date Immunization Notes Care Provider Fa cility 02-08-2024 Pneumococcal Conjuga te Vaccine, 20 valent [facility] 06-26-2016 influenza, high dose seasonal, preservative-free Tasha Padgett MD Work Phone: [facility] 09-10-2015 influenza, seasonal, injectable Tasha Padgett MD Work Phone: [facility] 09-10-2015 pneumococcal conjuga te vaccine, 13 valent Tasha Padgett MD Work Phone: [facility] Payers Date Payer Category Payer Unknown [employer] [id number] 2021-Present [phone] [address] [place] [address] [id number] 2015 Medicare MEDICARE MEDICAR E PART A & B [id number] 2015-Present [phone] [address] [place] [address] [id number] 1959 Medicare [id number] 1959 Unknown [id number] 1950 Unknown [id number] 2.16.840.1.387589.3.579. 2.727 1950 Unknown [id number] 2.16.840.1.679787.3.579. 2.593 1950 Unknown [id number] 2.16.840.1.444629.3.579. 2.593 1950 Unknown [id number] 2.16.840.1.769900.3.579. 2.593 1950 Unknown [id number] 2.16.840.1.332189.3.579. 2.593 1950 Unknown [id number] 2.16.840.1.394139.3.579. 2.1286 1950 Unknown [id number] 2.16.840.1.448314.3.579. 2.128 1950 Unknown [id number] 2.16.840.1.308056.3.579. 2.1285 1950 Unknown [id number] 2.16.840.1.719571.3.579. 2.128 1950 Unknown [id number] 2.16.840.1.556553.3.579. 2.128 1950 Unknown [id number] 2.16.840.1.801582.3.579. 2.128 1950 Unknown [id number] 2.16.840.1.258324.3.579. 2.128 1950 Unknown [id number] 2.16.840.1.914470.3.579. 2.128 1950 Unknown [id number] 2.16.840.1.759520.3.579. 2.1285 1950 Unknown [id number] 2.16.840.1.088027.3.579. 2.128 1950 Unknown [id number] 2.16.840.1.267265.3.579. 2.1286 Private Health Insurance [facility] [id number] Self-pay Self Pay [id number] Unknown Regular Insurance [id number] Social History Date Type Detail Facility Unknown if ever smoked [facility] Other Start: 11-13-2020 End: 10-18-2023 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 (finding) [facility] Condition One Adolescent depressio n screening assessment 0 [facility] Start: 04-18-2023 Tobacco Comment PT STATES HAS CUT BACK BEEN USING PATCHES TO HELP- SAID SHE SMOKES ABOUT 4 A DAY [facility] Start: 1950 Sex Assigned At Not on file P [facility] [employer] [facility] Start: 02-08-2024 End: 03-06-2024 Tobacco smoking status NHIS Smoker (finding) [facility] Start: 1950 [facility] Assigned At [facility] Clinical Notes 08-03-2023 to 03-06-2024 Tasha Padgett MD - 10/18/2023 1:00 PM EST Note Date & Type Note Facility 03-06-2024 Hospital Discharg e instructions Ambulatory OrdersReferral to Orthopedic Surgery Time Frame: 03/06/24, Location: None Selected [facility] Work Phone: 10-18-2023 History of [...] PADGETT MD documented in this encounter [facility] 08-03-2023 Evaluation note Encounter Date Diagnosis [...] and willingness to quit at each appointment. [employer] [place] [employer] Other Evaluation noteNo InformationNortPhoenixville [facility] [employer] Other Evaluation note* Diagnosis Midline cystocele- Primary Cystocele, midline documented in this encounter [facility] [employer] SystemEvaluation note* Diagnosis Onset Date Resolution Status Controlled type 2 diabetes mellitus without complicati on acute Muscle cramping acute Restless leg syndrome [facility] Work Phone: Evaluation note* Diagnosis Onset Date Resolution Status Cigarette nicotine dependence without complication acute Controlled type 2 diabetes mellitus without complicati on acute Medicare annual wellness visit, subsequent acute Muscle cramping acute Post-menopausal acute Restless leg syndrome acute Screening for breast cancer acute Screening for colon cancer a cute Screening for osteoporosis a cute Osteoporosis acute [facility] Work Phone: Evaluation note* Diagnosis Onset Date Resolution Status Cigarette nicotine dependence without complication acute Controlled type 2 diabetes mellitus without complicati on acute Medicare annual wellness visit, subsequent acute Muscle cramping acute Post-menopausal acute Restless leg syndrome acute Screening for breast cancer acute Screening for colon cancer a cute Screening for osteoporosis a cute Osteoporosis acute Osteoporosis acute [facility] Work Phone: Evaluation note* Diagnosis Onset Date Resolution Status Osteoporosis acute Cigarette nicotine dependence without complication acute Localized swelling, mass and lump, neck acute [facility] Work Phone: History general Narrative - Reported* Type Description Date Medical History diabetic Medical History hypertension Medical History heart attack Surgical History breast biopsy Surgical History stents x2 2012 Hospitalization History see surgical hx [facility] Other Hospital Discharge instructionsAmbulatory Orders* Referral to ENT Time Frame: 07/02/24, Location: None Selected [facility] Work Phone: InstructionsNot on filedocumented in this encounter [facility] Summary Purpose Family History No Family History Records Found Relationship Condition Age at Onset Recorded Date/T ameena father Unknown Heart disease Unknown Not Specified Unknown natural son Unknown sister Malignant neoplasm Unknown Relationship Condition Age at Onset Recorded Date/T ameena father Unknown Heart disease Unknown mother Unknown son Unknown sister Malignant neoplasm Unknown Advance Directives No Advanced Directives Records FoundLatest [...] Complaint MAWV Discuss Dexa Scan CONSULT LENA HERNANDEZ OWN THE BONE Reason for Visit Cigarette [...] section and content) DATE CREATED AUTHOR 11/18/2022 [facility] DATE CREATED AUTHOR AUTHOR'S ORGANIZ ATION 01/17/2023 [facility] DATE CREATED AUTHOR AUTHOR'S ORGANIZ ATION 01/19/2024 [facility] DATE CREATED AUTHOR AUTHOR'S ORGANIZ ATION 06/18/2024 [facility] DATE CREATED AUTHOR AUTHOR'S ORGANIZ ATION 07/03/2024 [facility] REASON FOR VISIT (unrecogniz ed section and content) Reason Comments Pessary; cleaning Care Teams (unrecognized sec tion and content) 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 Relationship Specialty Start Date End Date Wesley Valdivia DO [address] [place], [place] [id number] PCP - General 08/02/13 Team Status: Active Member Role Status Dates Lazara Hernandez APRN LIGHT RAIL TRANSIT OPERATOR-C Primary Care Provider Active Team Status: Inactive [...] April 17, 2024 End: April 17, 2024 Lazara L Osceola , LIGHT RAIL TRANSIT OPERATOR-C Attending Provider Active Start: April 17, 2024 End: April 17, 2024 Team Status: Active Member Role Status Dates Lazara Hernandez APRN LIGHT RAIL TRANSIT OPERATOR-C Primary Care Provider Active Start: April 19, 2024 Lazara Gandhi NP-Chantel Attending Provider Active Start: April 19, 2024 Team Status: Inactive Member Role Status Dates Lazara Hernandez APRN LIGHT RAIL TRANSIT OPERATOR-C Primary Care Provider, Attending Provider Active Start: June 20, 2024 End: June 20, 2024 Team Status: Active Member Role Status Dates Lazara Hernandez APRN LIGHT RAIL TRANSIT OPERATOR-C Primary Care Provider, Attending Provider Active Start: 2024 Goals (unrecognized section and content) Goals [...] BE BASED ON THE PRIMARY CLINICAL RECORDS. [employer] provides no warranty or guarantee of the accuracy or completeness of information in this document."
== END 2024-07-04 10:39 | disposition home or self-care (01) ==
LOC: US 10:44
PROVIDERS: PCP Nurse Practitioner Family; Visit Provider Nurse Practitioner Family
DX: E04.1 Nontoxic single thyroid nodule (principal)
CPT/HCPCS: 76536

== ENCOUNTER 2025-02-14 13:21 | Outpatient (OUT) | payer MEDICARE, OTHER, MEDICAID, SELFPAY ==
--- NOTE | 2025-02-14 13:24 | CT_ITS ---
The [address] [address] Patient Name: TRAN RAYA MRN: [id number] date: 1950 Sex: F Assigned Patient Location: CT Current Patient Location: CT Accession/Order Number: [id number] Exam Date: 02/14/2025 14:53 Report Date: 02/14/2025 15:18 At the request of: NAGA VENTURA DO Procedure: CT lung screening low-dose CT Chest lung screening without contrast TECHNIQUE: Axial imaging with 2-D reconstruction. The CT exam was performed using one or more the following dose reduction techniques: Automated exposure control, adjustment of the MA and/or Kv according to patient size, or use of the iterative reconstruction technique. History: Lung screening COMPARISON: 11/18/2023 THYROID: Unremarkable TRACHEA AND BRONCHI: Patent ESOPHAGUS: Unremarkable. HEART: Within normal limits PERICARDIAL EFFUSION: None CORONARY ARTERY CALCIFICATION: Present MEDIASTINUM: No adenopathy. No pneumoperitoneum. No mediastinal hematoma. PULMONARY LENO: No hilar mass or adenopathy is seen. THORACIC AORTA Unremarkable LUNG NODULE developing posterior subpleural 4 mm groundglass nodule of the basilar portion of the left lower lobe seen with image #122. LUNGS: Emphysema. Apical scarring lingular atelectasis. Calcified granuloma right upper lobe PLEURAL EFFUSION: None PNEUMOTHORAX: No pneumothorax seen. CHEST WALL: No abnormality AXILLA:Unremarkable BONY STRUCTURES Intact UPPER ABDOMEN: Images of the upper abdomen are noncontributory. CT/CT lung screening low-dose IMPRESSION: Developing 4 mm groundglass nodule of the left lower lobe. FINAL ASSESSMENT: Benign finding Lung-RADS Version 1.0 Assessment Category: 2 REMARKS: Continued annual screening with LDCT in 12 months is recommended. Impression dictated by: Bryan Velez M.D. 02/14/2025 3:18 PM Dictation Location: [place] [address] Electronically authenticated by: [id number] Y Date: 02/14/2025 15:18
== END 2025-02-14 13:22 | disposition home or self-care (01) ==
LOC: CT 13:21
PROVIDERS: PCP Nurse Practitioner Family; Visit Provider Internal Medicine
DX: F17.219 Nicotine dependence, cigarettes, with unspecified nicotine-induced disorders (principal); Z12.2 Encounter for screening for malignant neoplasm of respiratory organs
CPT/HCPCS: 71271

== ENCOUNTER 2025-03-01 09:44 | Outpatient (OUT) | payer MEDICARE, OTHER, MEDICAID, SELFPAY ==
--- OUTSIDE RECORDS SUMMARY | 2024-12-05 13:03 | XMS_ITS ---
Author Organization [facility] [place] Address [address] [place] [address] Care Team Providers Care Welfare Investigator Name Role Phone Lazara Hernandez CNP Primary Care Provider U Eben Pena Unavailable [phone] REASON FOR VISIT [facility] Rx Encounters Encounter Location Date Provider Diagnosis Pulmonary Medicine [place] [address] [place] [address] 12/05/2024 Eben Surya Plan Of Treatment Next Appt Details Provider Name:Eben Piña, 08/14/2025 02:00:00 PM, [address] [place], [address], Progress Notes * Lela GUTIERREZDOB:1950 (74 yo F)Acc No.[id number]:12/05/2024 Patient: Lela BAEZA :1950 A ge:74 Y S ex:Female Address:[address] [place] [address] [place], [address] * true * Date: Generated for Printi ng/Faxing/eTransmitting on: 0 03/01/2025 09:47 AM EDT
--- OUTSIDE RECORDS SUMMARY | 2025-02-14 11:42 | XMS_ITS ---
Author Organization [facility] [place] Address [address] [place] [address] Care Team Providers Care Laborer [employer] Name Role Phone Lazara Hernandez CNP Primary Care Provider U Eben Pena Unavailable [phone] REASON FOR VISIT LDCT Result Encounters Encounter Location Date Provider Diagnosis Pulmonary Medicine [place] [address] [place] [address] 02/14/2025 Eben Piña Nicotine dependence, cigarettes, in remission F17.211 and Encounter for screening for malignant neoplasm of respiratory organs Z12.2 Assessments Encounter Date Diagnosis (ICD Code) Assessment Notes Treatment Notes Treatment Clinical Notes Section Notes 02/14/2025 Nicotine dependence, cigarettes, in remission (ICD-10 - F17.211) 02/14/2025 Encounter for screening for malignant neoplasm of respiratory organs (ICD-10 - Z12.2) Plan Of Treatment Future Test Test Name Order Date CT Chest Low Dose for Screening* 026 Next Appt Details Provider Name:Eben Piña, 08/14/2025 02:00:00 PM, [address] [place], [address], Progress Notes * Lela GUTIERREZDOB:1950 (74 yo F)Acc No.[id number]:02/14/2025 Patient: Lela BAEZA :1950 A ge:74 Y S ex:Female Address:[address] [place] [address] [place], [address] Subjective: * Chief Complaints: * L DCT Result * Medical History: * Surgical History: * Hospitalization/Major Diagno stic Procedure: * Medications: Objective: * Vitals: * Physical Examination: Assessment: * Assessment: 1. N icotine dependence, cigarettes, in remission - F17.211 (Primary) 2 . E ncounter for screening for malignant neoplasm of respiratory organs - Z12.2 Plan: * Treatment: 2. E ncounter for screening for malignant neoplasm of respiratory organs I maging: CT Chest Low Dose for Screening* (Ordered for 02/14/2026) * Procedure Codes: * true * Date: Generated for Elly lin/Luanne/Amandasmitting on: 0 03/01/2025 09:47 AM EDT
--- OUTSIDE RECORDS SUMMARY | 2025-02-18 12:45 | XMS_ITS | Encounter Summary ---
Author Organization [facility] tem Address [id number] [address] [place] [address] Care Team Providers Care Entomology Teacher Name Role Phone Lazara Hernandez APRN-ZEUS Primary Care Provid er Reason for Visit * Consultation (Routine) - Authorized Specialty Diagnoses / Procedures Referred By Contac t Referred To Contact Cardiac Rehabilitation Diagnoses Coronary artery disease involving af[place] heart, unspecified vessel or lesion type, unspecified whether angina present Procedures Ambulatory referral to Cardiac Rehabilitation ([facility]) Raimundo Strauss MD [address] [place] [address] Phone: tel: fax: [facility] - Cardiac Rehab [address] [place] [address] Phone: tel:[phone] fax:[phone] Referral ID Status Reason Start Date Expiration Date Visits Requested Visits Authorized [id number] Authorized Specialty Services Required 01/31/2025 01/31/2026 36 36 Encounter Details Date Type Department Care Team (Late st Contact Info) Description 02/18/2025 12:45 PM EDT Clinical Support [facility] - Cardiac Rehab [address] [place] [address] Social History Tobacco Use Types Packs/Day Years Used Date Smoking Tobacco: Former Cigarettes 1.5 5 0 10/03/2017 - 10/03/2022 Smokeless Tobacco: Never Comments:PT STATES HAS CUT B ACK BEEN USING PATCHES TO HELP- SAID SHE SMOKES ABOUT 4 A DAY Alcohol Use Standard Drinks/Week Comments No 0 (1 standard drink = 0.6 oz pur e alcohol) PHQ-2 Answer Date Recorded Total Score 0 10/28/2021 Childcare Answer Date Recorded Childcare Unknown 03/14/2019 Employment Answer Date Recorded Employment Unknown 03/14/2019 Hunger Screening Answer Date Recorded Within the past 12 months we worried whether our food would run out before we got money to buy more. Never True 12/24/2024 Within the past 12 months th e food we bought just didn't last and we didn't have money to get more. Never True 12/24/2024 Purpose - Life Answer Date Recorded Purpose and direction in life Unknown Comments No Sex and Gender Information Value Date Recorded Sex Assigned at Not on file Legal Sex Female 11:45 AM EDT Gender Identity Not on file Sexual Orientation Not on file documented as of this encounter Plan of Treatment Upcoming Encounters Date Type Department Care Team (Late st Contact Info) Description 03/04/2025 12:45 PM EDT Clinical Support [facility] Cardiac Rehab [address] [place] [address] 03/06/2025 12:45 PM EDT Clinical Support [facility] [address] [facility] [place] [address] 03/07/2025 12:45 PM EDT Clinical Support [facility] Cardiac Rehab [address] [place] [address] 03/11/2025 12:45 PM EDT Clinical Support [facility] Cardiac Rehab [address] [place] [address] 03/11/2025 2:45 PM EDT Office Visit [facility] [place] [address] Yamilka Walsh, DO [address] [facility] [address] [place] [address], [place] [address] 03/13/2025 12:45 PM EDT Clinical Support [facility] Cardiac Rehab [address] [place] [address] 03/14/2025 12:45 PM EDT Clinical Support [facility] Cardiac Rehab [address] [place] [address] 03/18/2025 12:45 PM EDT Clinical Support [facility] Cardiac Rehab [address] [place] [address] 03/20/2025 12:45 PM EDT Clinical Support [facility] Cardiac Rehab [address] [place] [address] 03/21/2025 12:45 PM EDT Clinical Support [facility] Cardiac Rehab [address] [place] [address] 03/25/2025 12:45 PM EDT Clinical Support [facility] Cardiac Rehab [address] [place] [address] 03/26/2025 1:15 PM EDT Office Visit [facility]icians Obstetrics/Gynecology [address] [place] [address] Tasha Moore MD [address] [place] [address] 03/27/2025 12:45 PM EDT Clinical Support [facility] Cardiac Rehab [address] [place] [address] 03/28/2025 12:45 PM EDT Clinical Support [facility] Cardiac Rehab [address] [place] [address] 04/01/2025 12:45 PM EDT Clinical Support [facility] - Cardiac Rehab [address] [place] [address] Scheduled Orders Name Type Priority Associated Diagnoses Order Schedule Cardiopulmonary rehabilitation Cardiac Services Ordered: 02/18/2025 documented as of this encounter Procedures Procedure Name Priority Date/Time Associated Diagnosis Comments BEDSIDE GLUCOSE Routine 02/18/2025 1:35 PM EDT documented in this encounter Results * (ABNORMAL) Bedside Glucose (02/18/2025 1:35 PM EDT) Bedside Glucose (POC) 140(H) 65 - 99 mg/dL 02/18/2025 1:40 PM EDT [facility] arterial/capilla ry 02/18/2025 1:35 PM EDT 02/18/2025 1:40 PM EDT us POINT OF CARE TEST ORDERABLES Fi nal Result [facility] [address] [place] [address], documented in this encounter Visit Diagnoses Not on filedocumented in this encounter Additional Health Concerns Assessment Noted Time PHQ-9 Depression Total Score: 0 10/28/19 22 9:42 AM EST documented as of this encounter Care Teams Entomology Teacher Relationship Specialty Start Date End Date Lazara Hernandez APRN-NP [address] [place] [address] PCP - General Nurse Practitioner 06/11/24 documented as of this encounter
--- OUTSIDE RECORDS SUMMARY | 2025-02-20 12:45 | XMS_ITS | Encounter Summary ---
Author Organization [facility] tem Address [id number] [address] [place] [address] Care Team Providers Care Equipment Maint Tech Name Role Phone Lazara Hernandez APRN-ZEUS Primary Care Provid er Reason for Visit * Consultation (Routine) - Authorized Specialty Diagnoses / Procedures Referred By Contac t Referred To Contact Cardiac Rehabilitation Diagnoses Coronary artery disease involving t[place] heart, unspecified vessel or lesion type, unspecified whether angina present Procedures Ambulatory referral to Cardiac Rehabilitation ([facility]) Raimundo Strauss MD [address] [place] [address] Phone: tel: fax: [facility] - Cardiac Rehab [address] [place] [address] Phone: tel:[phone] fax:[phone] Referral ID Status Reason Start Date Expiration Date Visits Requested Visits Authorized [id number] Authorized Specialty Services Required 01/31/2025 01/31/2026 36 36 Encounter Details Date Type Department Care Team (Late st Contact Info) Description 02/20/2025 12:45 PM EDT Clinical Support [facility] - Cardiac Rehab [address] [place] [address] Social History Tobacco Use Types [...] Description 03/04/2025 12:45 PM EDT Clinical Support [facility] Cardiac Rehab [address] [place] [address] 03/06/2025 12:45 PM EDT Clinical Support [facility] Rehab [address] [facility] [place] [address] 03/07/2025 12:45 PM EDT Clinical Support [facility] Cardiac Rehab [address] [place] [address] 03/11/2025 12:45 PM EDT Clinical Support [facility] Cardiac Rehab [address] [place] [address] 03/11/2025 2:45 PM EDT Office Visit [facility] [place] [address] Yamilka Walsh, DO [address] [facility] [address] [place] [address], [place] [address] 03/13/2025 12:45 PM EDT Clinical Support [facility] Cardiac Rehab [address] [place] [address] 03/14/2025 12:45 PM EDT Clinical Support [facility] Cardiac Rehab [address] [place] [address] 03/18/2025 12:45 PM EDT Clinical Support [facility] Cardiac Rehab [address] [place] [address] 03/20/2025 12:45 PM EDT Clinical Support [facility] Cardiac Rehab [address] [place] [address] 03/21/2025 12:45 PM EDT Clinical Support [facility] Cardiac Rehab [address] [place] [address] 03/25/2025 12:45 PM EDT Clinical Support [facility] Cardiac Rehab [address] [place] [address] 03/26/2025 1:15 PM EDT Office Visit [facility]icians Obstetrics/Gynecology [address] [place] [address] Tasha Moore MD [address] [place] [address] 03/27/2025 12:45 PM EDT Clinical Support [facility] Cardiac Rehab [address] [place] [address] 03/28/2025 12:45 PM EDT Clinical Support [facility] Cardiac Rehab [address] [place] [address] 04/01/2025 12:45 PM EDT Clinical Support [facility] - Cardiac Rehab [address] [facility] [place] [address] Scheduled Orders Name Type Priority Associated Diagnoses Order Schedule Cardiopulmonary rehabilitation Cardiac Services Ordered: 02/20/2025 documented as of this encounter Visit Diagnoses Not on filedocumented in this encounter Additional Health Concerns Assessment Noted Time PHQ-9 Depression Total Score: 0 10/28/19 9:42 AM EST documented as of this encounter Care Teams Equipment Maint Tech Relationship Specialty Start Date End Date Lazara Hernandez APRN-NP [address] [place] [address] PCP - General Nurse Practitioner 06/11/24 documented as of this encounter
--- OUTSIDE RECORDS SUMMARY | 2025-02-21 12:45 | XMS_ITS | Encounter Summary ---
Author Organization [facility] tem Address [facility][id number] [address] [place] [address] Care Team Providers Care Unloader Name Role Phone Lazara Hernandez APRN-ZEUS Primary Care Provid er Reason for Visit * Consultation (Routine) - Authorized Specialty Diagnoses / Procedures Referred By Contac t Referred To Contact Cardiac Rehabilitation Diagnoses Coronary artery disease involving tribe heart, unspecified vessel or lesion type, unspecified whether angina present Procedures Ambulatory referral to Cardiac Rehabilitation ([facility]) Raimundo Strauss MD [address] [place] [address] Phone: tel: fax: [facility] - Cardiac Rehab [address] [place] [address] Phone: tel:[phone] fax:[phone] Referral ID Status Reason Start Date Expiration Date Visits Requested Visits Authorized [id number] Authorized Specialty Services Required 01/31/2025 01/31/2026 36 36 Encounter Details Date Type Department Care Team (Late st Contact Info) Description 02/21/2025 12:45 PM EDT Clinical Support [facility] - Cardiac Rehab [address] [place] [address] Social History Tobacco Use Types [...] Description 03/04/2025 12:45 PM EDT Clinical Support [facility] Cardiac Rehab [address] [place] [address] 03/06/2025 12:45 PM EDT Clinical Support [facility] Cardiac Rehab [address] [facility] [place] [address] 03/07/2025 12:45 PM EDT Clinical Support [facility] Cardiac Rehab [address] [place] [address] 03/11/2025 12:45 PM EDT Clinical Support [facility] Cardiac Rehab [address] [place] [address] 03/11/2025 2:45 PM EDT Office Visit [facility] [place] [address] Yamilka Walsh, DO [address] [facility] [address] [place] [address], [place] [address] 03/13/2025 12:45 PM EDT Clinical Support [facility] Cardiac Rehab [address] [place] [address] 03/14/2025 12:45 PM EDT Clinical Support [facility] Cardiac Rehab [address] [place] [address] 03/18/2025 12:45 PM EDT Clinical Support [facility] Cardiac Rehab [address] [place] [address] 03/20/2025 12:45 PM EDT Clinical Support [facility] Cardiac Rehab [address] [place] [address] 03/21/2025 12:45 PM EDT Clinical Support [facility] Cardiac Rehab [address] [place] [address] 03/25/2025 12:45 PM EDT Clinical Support [facility] Cardiac Rehab [address] [place] [address] 03/26/2025 1:15 PM EDT Office Visit [facility] Physicians Obstetrics/Gynecology [address] [place] [address] Tasha Moore MD [address] [place] [address] 03/27/2025 12:45 PM EDT Clinical Support [facility] Cardiac Rehab [address] [place] [address] 03/28/2025 12:45 PM EDT Clinical Support [facility] Cardiac Rehab [address] [place] [address] 04/01/2025 12:45 PM EDT Clinical Support [facility] - Cardiac Rehab [address] [facility] [place] [address] Scheduled Orders Name Type Priority Associated Diagnoses Order Schedule Cardiopulmonary rehabilitation Cardiac Services Ordered: 02/21/2025 documented as of this encounter Visit Diagnoses Not on filedocumented in this encounter Additional Health Concerns Assessment Noted Time PHQ-9 Depression Total Score: 0 10/28/19 9:42 AM EST documented as of this encounter Care Teams Unloader Relationship Specialty Start Date End Date Lazara Hernandez APRN-NP [address] [place] [address] PCP - General Nurse Practitioner 06/11/24 documented as of this encounter
--- OUTSIDE RECORDS SUMMARY | 2025-02-27 12:45 | XMS_ITS | Encounter Summary ---
Author Organization [facility] tem Address [id number] [address] [place] [address] Care Team Providers Care Farm Machine Tender Name Role Phone Lazara Hernandez APRN-ZEUS Primary Care Provid er Reason for Visit * Consultation (Routine) - Authorized Specialty Diagnoses / Procedures Referred By Contac t Referred To Contact Cardiac Rehabilitation Diagnoses Coronary artery disease involving [place] tribe heart, unspecified vessel or lesion type, unspecified whether angina present Procedures Ambulatory referral to Cardiac Rehabilitation ([facility]) Raimundo Strauss MD [address] [place] [address] Phone: tel: fax: [facility] - Cardiac Rehab [address] [place] [address] Phone: tel:[phone] fax: Referral ID Status Reason Start Date Expiration Date Visits Requested Visits Authorized [id number] Authorized Specialty Services Required 01/31/2025 01/31/2026 36 36 Encounter Details Date Type Department Care Team (Late st Contact Info) Description 02/27/2025 12:45 PM EDT Clinical Support [facility] - Cardiac Rehab [address] [place] [address] Social History Tobacco Use Types [...] Description 03/04/2025 12:45 PM EDT Clinical Support [facility] Cardiac Rehab [address] [place] [address] 03/06/2025 12:45 PM EDT Clinical Support [facility] Cardiac Rehab [address] [facility] [place] [address] 03/07/2025 12:45 PM EDT Clinical Support [facility] Cardiac Rehab [address] [place] [address] 03/11/2025 12:45 PM EDT Clinical Support [facility] Cardiac Rehab [address] [place] [address] 03/11/2025 2:45 PM EDT Office Visit [facility] [place] [address] Yamilka Walsh, DO [address] [facility] [address] [place] [address], [place] [address] 03/13/2025 12:45 PM EDT Clinical Support [facility] Cardiac Rehab [address] [place] [address] 03/14/2025 12:45 PM EDT Clinical Support [facility] Cardiac Rehab [address] [place] [address] 03/18/2025 12:45 PM EDT Clinical Support [facility] Cardiac Rehab [address] [place] [address] 03/20/2025 12:45 PM EDT Clinical Support [facility] Cardiac Rehab [address] [place] [address] 03/21/2025 12:45 PM EDT Clinical Support [facility] Cardiac Rehab [address] [place] [address] 03/25/2025 12:45 PM EDT Clinical Support [facility] Cardiac Rehab [address] [place] [address] 03/26/2025 1:15 PM EDT Office Visit [facility] Physicians Obstetrics/Gynecology [address] [place] [address] Tasha Moore MD [address] [place] [address] 03/27/2025 12:45 PM EDT Clinical Support [facility] Cardiac Rehab [address] [place] [address] 03/28/2025 12:45 PM EDT Clinical Support [facility] Cardiac Rehab [address] [place] [address] 04/01/2025 12:45 PM EDT Clinical Support [facility] - Cardiac Rehab [address] [facility] [place] [address] Scheduled Orders Name Type Priority Associated Diagnoses Order Schedule Cardiopulmonary rehabilitation Cardiac Services Ordered: 02/27/2025 documented as of this encounter Visit Diagnoses Not on filedocumented in this encounter Additional Health Concerns Assessment Noted Time PHQ-9 Depression Total Score: 0 10/28/19 9:42 AM EST documented as of this encounter Care Teams Farm Machine Tender Relationship Specialty Start Date End Date Lazara Hernandez APRN-NP [address] [place] [address] PCP - General Nurse Practitioner 06/11/24 documented as of this encounter
--- OUTSIDE RECORDS SUMMARY | 2025-02-28 12:45 | XMS_ITS | Encounter Summary ---
Author Organization [facility] tem Address [facility]-[id number] [address] [place] [address] Care Team Providers Care Publicity Writer Name Role Phone Lazara Hernandez APRN-ZEUS Primary Care Provid er Reason for Visit * Consultation (Routine) - Authorized Specialty Diagnoses / Procedures Referred By Contac t Referred To Contact Cardiac Rehabilitation Diagnoses Coronary artery disease involving [place] heart, unspecified vessel or lesion type, unspecified whether angina present Procedures Ambulatory referral to Cardiac Rehabilitation ([facility]) Raimundo Strauss MD [address] [place] [address] Phone: tel: fax: [facility] - Cardiac Rehab [address] [place] [address] Phone: tel:[phone] fax:[phone] Referral ID Status Reason Start Date Expiration Date Visits Requested Visits Authorized [id number] Authorized Specialty Services Required 01/31/2025 01/31/2026 36 36 Encounter Details Date Type Department Care Team (Late st Contact Info) Description 02/28/2025 12:45 PM EDT Clinical Support [facility] - Cardiac Rehab [address] [place] [address] Social History Tobacco Use Types [...] Description 03/04/2025 12:45 PM EDT Clinical Support [facility] Cardiac Rehab [address] [place] [address] 03/06/2025 12:45 PM EDT Clinical Support [facility] [address] [facility] [place] [address] 03/07/2025 12:45 PM EDT Clinical Support [facility] Cardiac Rehab [address] [place] [address] 03/11/2025 12:45 PM EDT Clinical Support [facility] Cardiac Rehab [address] [place] [address] 03/11/2025 2:45 PM EDT Office Visit [facility] [place] [address] Yamilka Walsh, DO [address] [facility] [address] [place] [address], [place] [address] 03/13/2025 12:45 PM EDT Clinical Support [facility] Cardiac Rehab [address] [place] [address] 03/14/2025 12:45 PM EDT Clinical Support [facility] Cardiac Re[facility] [address] [place] [address] 03/18/2025 12:45 PM EDT Clinical Support [facility] Card[facility] Re[facility] [address] [place] [address] 03/20/2025 12:45 PM EDT Clinical Support [facility] Card[facility] Re[facility] [address] [place] [address] 03/21/2025 12:45 PM EDT Clinical Support [facility] Card[facility] Re[facility] [address] [place] [address] 03/25/2025 12:45 PM EDT Clinical Support [facility] Cardiac Re[facility] [address] [place] [address] 03/26/2025 1:15 PM EDT Office Visit [facility] Physicians Obstetrics/Gynecology [address] [place] [address] Tasha Moore MD [address] [place] [address] 03/27/2025 12:45 PM EDT Clinical Support [facility] Cardiac Rehab [address] [place] [address] 03/28/2025 12:45 PM EDT Clinical Support [facility] Cardiac Re[facility] [address] [place] [address] 04/01/2025 12:45 PM EDT Clinical Support [facility] - Cardiac Rehab [address] [facility] [place] [address] Scheduled Orders Name Type Priority Associated Diagnoses Order Schedule Cardiopulmonary rehabilitation Cardiac Services Ordered: 02/28/2025 documented as of this encounter Visit Diagnoses Not on filedocumented in this encounter Additional Health Concerns Assessment Noted Time PHQ-9 Depression Total Score: 0 10/28/19 9:42 AM EST documented as of this encounter Care Teams Publicity Writer Relationship Specialty Start Date End Date Lazara Hernandez APRN-NP [address] [place] [address] PCP - General Nurse Practitioner 06/11/24 documented as of this encounter
--- OUTSIDE RECORDS SUMMARY | 2025-03-01 09:46 | XMS_ITS | Clinical Summary ---
Author Organization [employer] tem Address [id number] [address] [place] [address] Care Team Providers Care Site Engineer Name Role Phone Lazara Hernandez Primary Care Provid er Allergies Active Allergy Reactions Criticality Noted Date Comments Ticagrelor Anxiety Low 11/19/2016 Medications metFORMIN (GLUCOPHAGE) 500 mg tablet Take 1 tablet (500 mg total) by mouth in the morning and 1 tablet (500 mg total) in the evening. Take with meals. 10/26/19 17 Active acetaminophen (TYLENOL EXTRA STRENGTH) 500 mg tablet Take 2 tablets (1,000 mg total) by mouth every 6 (six) hours as needed for pain. 30 tablet 12/20/19 23 Active magnesium oxide 400 mg magnesium capsule Take 1 capsule (400 mg total) by mouth in the morning. Active atorvastatin (LIPITOR) 80 mg tabletIndications: Mixed hyperlipidemia Take 1 tablet (80 mg total) by mouth in the evening. 90 tablet 3 06/11/20 24 Active furosemide (LASIX) 20 mg tabletIndications: Atherosclerosis of red devil coronary artery of red devil heart without angina pectoris,Mixed hyperlipidemia Take 1 tablet (20 mg total) by mouth daily. 30 tablet 3 06/11/20 24 Active lisinopriL (PRINIVIL,ZESTRIL) 5 mg tabletIndications: Atherosclerosis of red devil coronary artery of red devil heart without angina pectoris,Mixed hyperlipidemia Take 1 tablet (5 mg total) by mouth in the morning. 90 tablet 3 06/11/20 24 Active ezetimibe (ZETIA) 10 mg tabletIndications: Mixed hyperlipidemia Take 1 tablet (10 mg total) by mouth in the morning. 90 tablet 3 06/20/20 24 Active estradioL (ESTRACE) 0.01 % (0.1 mg/gram) vaginal cream Insert 1 g into the vagina in the morning. 42.5 g 1 07/02/20 24 Active estradioL (ESTRACE) 0.01 % (0.1 mg/gram) vaginal cream Insert 1 g into the vagina in the morning. 42.5 g 1 10/02/20 24 Active clopidogreL (PLAVIX) 75 mg tablet Take 1 tablet (75 mg total) by mouth. 11/03/19 25 Active metoprolol succinate XL (TOPROL XL) 25 mg 24 hr tablet Take 0.5 tablets (12.5 mg total) by mouth. 11/03/19 25 Active aspirin 81 mg chewable tablet Chew 1 tablet (81 mg total) and swallow. 11/03/19 25 Active spironolactone (ALDACTONE) 25 mg tablet Take 0.5 tablets (12.5 mg total) by mouth. 11/03/19 25 Active pantoprazole (PROTONIX) 40 mg EC tablet Take 1 tablet (40 mg total) by mouth every morning before breakfast. 11/03/19 25 Active midodrine (PROAMATINE) 10 mg tablet Take 1 tablet (10 mg total) by mouth 3 (three) times a day with meals. 11/02/19 25 Active empagliflozin (JARDIANCE) 10 mg tablet tablet Take 1 tablet (10 mg total) by mouth in the morning. Active estradioL (ESTRACE) 0.01 % (0.1 mg/gram) vaginal cream Insert 1 g into the vagina in the morning. 42.5 g 12/25/19 Active oxyquinoline-sod.l auryl sulfat (TRIMO-ESTRAAD JELLY) 0.025-0.01 % gel Insert 1 Applicatorful into the vagina 2 (two) times a week. 113.4 g 12/25/19 25 Active Hospital, Clinic, or Other Facility Administered Medication Ordered Dose Route Frequency Start Date End Date Status lidocaine-prilocaine (EMLA) cream 1 ApplicationIndications:admin istration of local anesthesia 1 Application TP As needed 02/07/2023 Active Active Problems Problem Noted Date Diagnosed Date Midline cystocele 04/17/2024 Infrarenal abdominal aortic aneurysm (AAA) witho ut rupture 01/10/2023 Atherosclerosis of aorta 01/10/2023 Closed fracture of one rib, unspecified laterality, initial encounter 12/19/2022 Acute respiratory failure with hypoxia 3 Tobacco abuse 05/12/2020 Atherosclerosis of red devil co ronary artery of red devil heart without angina pectoris 08/02/2018 Rectal prolapse 01/02/2018 Assessment & Plan (01/02/2018 3:11 PM EDT): Discussed pt will need to see colorectal surgery and pt would like to contact them herself. Uterine prolapse 10/26/2017 Assessment & Plan (01/02/2018 3:10 PM EDT): Patient has attempted pessary. She is a poor surgical candidate. 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 We discussed vaginal hysterectomy with suspension. Alternative physician names provided. Discussed she will need 8 wks surrounding surgery and she will have a 35 lbs lifting restriction thereafter. Discussed she will need to be smoke free for four weeks before and after surgery. Bilateral carotid artery stenosis 02/14/2017 Atherosclerotic PVD with intermittent claudicati on 11/22/2016 Mixed hyperlipidemia 11/22/2016 PAD (peripheral artery disease) 11/22/2016 Resolved Problems Problem Noted Date Diagnosed Date Resolved Date Preoperative evaluation to neville weisse out surgical contraindication 01/24/2018 09/08/2020 Carotid atherosclerosis 02/14/2017 04/0 01/2019 SOB (shortness of breath) Encounters Date Type Department Care Team Description 02/28/2025 12:45 PM EDT Clinical Support [facility] Cardiac Rehab [address] [place] [address] 02/27/2025 12:45 PM EDT Clinical Support [facility] Cardiac Rehab [address] [place] [address] 02/21/2025 12:45 PM EDT Clinical Support [facility] Cardiac Rehab [address] [place] [address] 02/20/2025 12:45 PM EDT Clinical Support [facility] Cardiac Rehab [address] [place] [address] 02/18/2025 12:45 PM EDT Clinical Support [facility] Cardiac Rehab [address] [place] [address] 02/12/2025 Travel 02/06/2025 1:26 PM EDT - 02/06/2025 11:59 PM EDT Hospital Encounter [facility] Vascular [address] [place] [address] Internal carotid artery stenosis, bilateral Discharge Disposition: Home 02/06/2025 1:25 PM EDT Hospital Encounter [facility] Vascular [address] [place] [address] PAD (peripheral artery disease); Atherosclerotic PVD with intermittent claudication Discharge Disposition: Home 02/06/2025 Travel 12/24/2024 9:30 AM EDT Office Visit [facility] [address] [place] [address] Tasha Moore MD Midline cystocele (Primary Dx); Uterine prolapse; Rectocele; Pessary maintenance 12/24/2024 Travel from Last 3 Months Immunizations Immunization Administration Dates Next Due Influenza High Dose Preservative Free IM 016 Influenza, Im Trivalent Preservative 09/10/2015 Pneumococcal Conjugate 13-Valent 09/10/2015 Family History Medical History Relation Name Comments Heart attack Father Breast cancer Maternal Aunt Heart attack Mother Relation Name Status Comments Father Maternal Aunt Mother Social History Tobacco Use Types Packs/Day Years [...] on file Sexual Orientation Not on file Last Filed Vital Signs Vital Sign Reading Time Taken Comments Blood Pressure 120/68 12/24/2024 10:21 AM EDT Pulse 64 06/11/2024 8:46 AM EDT Temperature 36.1 C (97 F) 12/19/2022 11:40 AM EDT Respiratory Rate 18 01/30/2024 12:56 PM EDT Oxygen Saturation 100% 06/11/2024 8:46 AM EDT Inhaled Oxygen Concentration - - Weight 51.3 kg (113 lb) 12/24/2024 10:21 AM EDT Height 152.4 cm (5') 12/24/2024 10:21 AM EDT Body Mass Index 22.07 12/24/2024 10:21 AM EDT Plan of Treatment Upcoming Encounters Date Type Department Care Team (Late st Contact Info) Description 03/04/2025 12:45 PM EDT Clinical Support [facility] Cardiac Rehab [address] [place] [address] 03/06/2025 12:45 PM EDT Clinical Support [facility] Cardiac Rehab [address] [place] [address] 03/07/2025 12:45 PM EDT Clinical Support [facility] Cardiac Rehab [address] [place] [address] 03/11/2025 12:45 PM EDT Clinical Support [facility] Cardiac Rehab [address] [place] [address] 03/11/2025 2:45 PM EDT Office Visit [facility] V[facility] [place] [address] [place] [place] [address] Yamilka Walsh, DO [address] [facility] [address] [place] [address] 03/13/2025 12:45 PM EDT Clinical Support [facility] Cardiac Rehab [address] [place] [address] 03/14/2025 12:45 PM EDT Clinical Support [facility] Cardiac Rehab [address] [place] [address] 03/18/2025 12:45 PM EDT Clinical Support [facility] Cardiac Rehab [address] [place] [place] [address] 03/20/2025 12:45 PM EDT Clinical Support [facility] Cardiac Rehab [address] [place] [address] 03/21/2025 12:45 PM EDT Clinical Support [facility] Card[facility] Rehab [address] [place] [address] 03/25/2025 12:45 PM EDT Clinical Support [facility] Cardiac Rehab [address] [place] [address] 03/26/2025 1:15 PM EDT Office Visit [facility]Gyne[facility] [address] [place] [id number] Tasha Moore MD [address] [place] [address] 03/27/2025 12:45 PM EDT Clinical Support [facility] Cardiac Rehab [address] [facility] [address] 03/28/2025 12:45 PM EDT Clinical Support [facility] Cardiac Rehab [address] [facility] [address] 04/01/2025 12:45 PM EDT Clinical Support [facility] Cardiac Rehab [address] [place] [address] Health Maintenance Due Date Last Done Comments Depression Screening 1962 DTaP,Tdap and Td Vaccines (1 - Tdap) 1969 Fall Risk Screening 2015 Influenza Vaccine 06/03/2025 07/18/2023, , 06/26/2016, Additional history exists Adult BMI Screening 12/24/2025 12/24/2024 Tobacco Screening 12/24/2025 12/24/2024 Zoster (Shingles) Vaccine Completed 05/16/2023, 10/2022 COVID-19 Vaccine Completed 02/20/2025, , 07/19/2023, Additional history exists Medical Devices Not on file Procedures Procedure Name Priority Date/Time Associated Diagnosis Comments BEDSIDE GLUCOSE Routine 02/18/2025 1:35 PM EDT VASC CAROTID DUPLEX BILATERAL Routine 02/06/2025 2:56 PM EDT Internal carotid artery stenosis, bilateral VASC ARTERIAL DOPPLER LOWER BILATERAL MULTI LEVEL/PVR Routine 02/06/2025 2:55 PM EDT PAD (peripheral artery disease) Atherosclerotic PVD with intermittent claudication from Last 3 Months Results * (ABNORMAL) Bedside Glucose (02/18/2025 1:35 PM EDT) Bedside Glucose (POC) 140(H) 65 - 99 mg/dL 02/18/2025 1:40 PM EDT [facility] arterial/capilla ry 02/18/2025 1:35 PM EDT 02/18/2025 1:40 PM EDT us POINT OF CARE TEST ORDERABLES Fi nal Result [facility] [address] [place] [address], [place] * Vas carotid duplex bilateral (02/06/2025 2:56 PM EDT) Anatomical Region Laterality Modality Vascular Bilateral Ultrasound 02/06/2025 3:31 PM EDT Narrative 02/07/2025 5:55 PM EDT Previous: Previous carotid duplex exam performed 01/24/2024. Bilat: <50% ICA stenosis. Right: Plaque with no significant ICA spectral Doppler or color flow disturbances; ICA 68/25 cm/sec. Antegrade vertebral artery flow. Left: Plaque with no significant ICA spectral Doppler or color flow disturbances; ICA 69/26 cm/sec. Antegrade vertebral artery flow. Conclusions: BILATERAL: Plaque without significant stenosis (<50%) of the internal carotid artery. Antegrade vertebral artery flow. Recommendations: When compared to previous report no significant changes were noted. Procedure Note Jenn Lamb MD - 02/07/2025 Previous: Previous carotid duplex exam performed 01/24/2024. Bilat: <50%ICA stenosis. Right: Plaque with no significant ICA spectral Doppler or color flowdisturbances; ICA 68/25 cm/sec. Antegrade vertebral artery flow. Left: Plaque with no significant ICA spectral Doppler or color flowdisturbances; ICA 69/26 cm/sec. Antegrade vertebral artery flow. Conclusions: BILATERAL: Plaque without significant stenosis (<50%) of theinternal carotid artery. Antegrade vertebral artery flow. Recommendations: When compared to previous report no significant changeswere noted. us Isadora Florence SCHEDULING REPRESENTATIVE-FRAME TENDER CV VASCULAR ORDERABLES Final Result * Vas art doppler lwr bilat mult lev/PVR (02/06/2025 2:55 PM EDT) Anatomical Region Laterality Modality Vascular Bilateral Ultrasound 02/06/2025 3:27 PM EDT Narrative 02/08/2025 9:11 AM EDT Previous: Previous lower extremity arterial physiological exam performed: 01/24/2024; Highest EMILY: Right: 0.49; Left: 0.65. Right: Mildly abnormal thigh, and moderately abnormal calf and ankle level PVR waveform contour. No calf waveform augmentation noted. PT EMILY is 0.58; DP EMILY is 0.58. TBI is 0.44. Multiphasic with diastolic flow reversal common femoral artery, and monophasic popliteal, PT and DP artery CW Doppler waveforms. Left: Mildly abnormal thigh, and moderately abnormal calf and ankle level PVR waveform contour. No calf waveform augmentation noted. PT EMILY is 0.61; DP EMILY is 0.61. TBI is 0.58. Multiphasic with diastolic flow reversal common femoral, and monophasic popliteal, PT and DP artery CW Doppler waveforms. Conclusions: BILATERAL: Multilevel arterial disease (femoropopliteal and tibioperoneal); EMILY consistent with moderate arterial disease. Recommendations: When compared to previous report no significant changes were noted. Procedure Note Jenn Lamb MD - 02/08/2025 Previous: Previous lower extremity arterial physiological exam performed:01/24/2024; Highest EMILY: Right: 0.49; Left: 0.65. Right: Mildly abnormal thigh, and moderately abnormal calf and ankle levelPVR waveform contour. No calf waveform augmentation noted. PT EMILY is 0.58;DP EMILY is 0.58. TBI is 0.44. Multiphasic with diastolic flow reversalcommon femoral artery, and monophasic popliteal, PT and DP artery CW Doppler waveforms. Left: Mildly abnormal thigh, and moderately abnormal calf and ankle levelPVR waveform contour. No calf waveform augmentation noted. PT EMILY is 0.61;DP EMILY is 0.61. TBI is 0.58. Multiphasic with diastolic flow reversalcommon femoral, and monophasic popliteal, PT and DP artery CW Doppler waveforms. Conclusions: BILATERAL: Multilevel arterial disease (femoropopliteal andtibioperoneal); EMILY consistent with moderate arterial disease. Recommendations: When compared to previous report no significant changeswere noted. Isadora Tolentino Ludivina SCHEDULING REPRESENTATIVE-FRAME TENDER CV VASCULAR ORDERABLES Final Result from Last [address] [place] [address] MEDICARE [facility] [address] [address] [place] [phone] [place] [address] WORKER'S COMPENSATION MEDICARE WORKER'S COMPENSATION - GENERIC PLAN , [address] [place] [address] Advance Directives * Full Code (Latest Code Status on File) Date Activated Date Inactivated Comments 12/19/2022 5:46 AM 12/19/2022 7:11 PM * Full Code Date Activated Date Inactivated Comments 10/04/2022 10:48 AM 10/05/2022 9:46 PM Care Teams Site Engineer Relationship Specialty Start Date End Date Lazara Hernandez APRN-NP [address] [place] [address] PCP - General Nurse Practitioner 06/11/24
--- OUTSIDE RECORDS SUMMARY | 2025-03-01 09:46 | XMS_ITS | Encounter Summary ---
Author Organization [facility] Address [id number] [address] [place] [address] Care Team Providers Care Stamping Operator Name Role Phone Lazara Hernandez Primary Care Provid er Reason for Visit * Reason Comments Med Refill Encounter Details Date Type Department Care Team (Late st Contact Info) Description 12/22/2022 Refill [facility] Cardiology [address] [place] [phone] Almas Webster APRN-CNP [address] [place] [address] Med Refill Social History Tobacco Use Types Packs/Day Years Used Date Smoking Tobacco: Former Cigarettes 1.5 5 0 03/03/2016 - 03/03/2021 Smokeless Tobacco: Never Comments:STATES HAS NOT SMOK ED IN 5 WEEKS Alcohol Use Standard Drinks/Week Comments No 0 (1 standard drink = 0.6 oz pur e alcohol) PHQ-2 Answer Date Recorded Total Score 0 10/28/2021 Childcare Answer Date Recorded Childcare Unknown 03/14/2019 Employment Answer Date Recorded Employment Unknown 03/14/2019 Purpose - Life Answer Date Recorded Purpose and direction in life Unknown Comments No Sex and Gender Information Value Date Recorded Sex Assigned at Not on file Legal Sex Female 11:45 AM EDT Gender Identity Not on file Sexual Orientation Not on file COVID-19 Exposure Response Date Recorded In the last month, have you been in contact with someone who was confirmed or suspected to have Coronavirus / COVID-19? No / Unsure 12/19/2022 3:54 AM EDT documented as of this encounter Plan of Treatment Upcoming Encounters Date Type Department Care Team (Late st Contact Info) Description 03/04/2025 12:45 PM EDT Clinical Support [facility] Cardiac Rehab [address] [place] [address] 03/06/2025 12:45 PM EDT Clinical Support [facility] Cardiac Rehab [address] [place] [address] 03/07/2025 12:45 PM EDT Clinical Support [facility] Cardiac Rehab [address] [place] [address] 03/11/2025 12:45 PM EDT Clinical Support [facility] Cardiac Rehab [address] [place] [address] 03/11/2025 2:45 PM EDT Office Visit [facility] Vascular [place] [address] Yamilka Walsh, DO [address] [facility] [address] [place] [address] 03/13/2025 12:45 PM EDT Clinical Support [facility] Cardiac Rehab [address] [place] [address] 03/14/2025 12:45 PM EDT Clinical Support [facility] Cardiac Rehab [address] [place] [address] 03/18/2025 12:45 PM EDT Clinical Support [facility] Cardiac Rehab [address] [place] [address] 03/20/2025 12:45 PM EDT Clinical Support [facility] Cardiac Rehab [address] [place] [address] 03/21/2025 12:45 PM EDT Clinical Support [facility] Cardiac Rehab [address] [place] [address] 03/25/2025 12:45 PM EDT Clinical Support [facility] Cardiac Rehab [address] [place] [address] 03/26/2025 1:15 PM EDT Office Visit [facility] Obstetrics/Gynecology [address] [place] [address] Tasha Moore MD [address] [place] [address] 03/27/2025 12:45 PM EDT Clinical Support [facility] Cardiac Rehab [address] [place] [address] 03/28/2025 12:45 PM EDT Clinical Support [facility] Cardiac Rehab [address] [place] [address] 04/01/2025 12:45 PM EDT Clinical Support [facility] Cardiac Rehab [address] [place] [address] documented as of this encounter Visit Diagnoses Diagnosis Mixed hyperlipidemia PAD (peripheral artery disease) Unspecified peripheral vascular disease Atherosclerotic PVD with intermittent claudication documented in this encounter Additional Health Concerns Assessment Noted Time PHQ-9 Depression Total Score: 0 10/28/19 22 9:42 AM EST documented as of this encounter Care Teams Stamping Operator Relationship Specialty Start Date End Date Lazara Hernandez APRN-NP [address] [place] [address] PCP - General Nurse Practitioner 9/9/24 documented as of this encounter
--- OUTSIDE RECORDS SUMMARY | 2025-03-01 09:46 | XMS_ITS | Clinical Summary ---
Author Organization [facility] Address [address] [place] [address] Care Team Providers Care Bottling Supervisor Name Role Phone House Sr., Wesley THRASHER Primary Care Provider + Allergies Active Allergy Reactions Criticality Noted Date Comments Ticagrelor Unknown 01/29/2016 Medications atorvastatin (LIPITOR) 80 mg tablet Take 80 mg by mouth once daily. Active lisinopril (ZESTRIL, PRINIVIL) 5 mg tablet Take 5 mg by mouth once daily. Active metFORMIN (GLUCOPHAGE) 500 mg tablet Take 500 mg by mouth twice daily with meals. Active cilostazol (PLETAL) 50 mg tablet Take 50 mg by mouth twice daily. Active clotrimazole-be tamethasone (LOTRISONE) cream Apply 1 application to affected area twice daily. Active aspirin, enteric coated (ASPIRIN, ENTERIC COATED) 81 mg EC tablet Take 81 mg by mouth once daily. Active Family History Medical History Relation Comments Heart Father Heart Mother Cancer Sister Relation Status Comments Father Mother Sister Social History Tobacco Use Types Packs/Day Years Used Date Smoking Tobacco: Every Day Cigarettes 1 15.4 Started: 10/03/2009 Alcohol Use Standard Drinks/Week Comments No 0 (1 standard drink = 0.6 oz pur e alcohol) Comments Unknown Sex and Gender Information Value Date Recorded Sex Assigned at Not on file Legal Sex Female 1:50 PM EDT Gender Identity Not on file Sexual Orientation Not on file Last Filed Vital Signs Vital Sign Reading Time Taken Comments Blood Pressure 116/72 02/26/2016 8:57 AM EDT Pulse 71 02/26/2016 8:57 AM EDT Temperature 37.3 C (99.2 F) 02/26/2016 8:57 AM EDT Respiratory Rate 14 02/26/2016 8:57 AM EDT Oxygen Saturation 98% 02/26/2016 8:57 AM EDT Inhaled Oxygen Concentration - - Weight 52.6 kg (116 lb) 02/26/2016 8:57 AM EDT Height 154.9 cm (5' 1 ) 02/26/2016 8:57 AM EDT Body Mass Index 21.92 02/26/2016 8:57 AM EDT Plan of Treatment Health Maintenance Due Date Last Done Comments Anxiety Screening 1968 Depression Screening 1968 Hepatitis C Screening 1968 DTaP,Tdap,Td Vaccine (1 - Tdap) [address] Colonography 1995 Cologuard (FIT-DNA) 1995 Colonoscopy 1995 Colorectal Cancer Screening 1995 Diabetes Screening 1995 Fecal Occult Blood 1995 Lipid Screening 1995 Sigmoidoscopy 1995 Pneumococcal Vaccine: 50+ (1 of 1 - PCV) 2000 Shingrix Vaccine (1 of 2) 2000 Bone Density Screening 2015 Covid-19 Vaccine (1 - 2023- season) 2024 Advance Directive Discussion 10/03/2024 Influenza Vaccine (Season Ended) 2025 RSV Vaccine (1 - 1-dose 75+ series) 2025 Insurance MEDICARE [facility] Member Subscriber Plan / Payer (Ef fective 2015-Present) Name:Lela Gutierrez Relation to Subscriber:Self Name:Lela Gutierrez Payer ID:Not on file Group ID:Not on file Type:[employer] Address: [place] [id number] Care Teams Bottling Supervisor Relationship Specialty Start Date End Date Wesley Elizabeth Sr., DO PCP - General Family Medicine 01/22/16
--- OUTSIDE RECORDS SUMMARY | 2025-03-01 09:46 | XMS_ITS | Patient Health Record ---
Author Organization [facility] [place] Address [address] [place] [address] Care Team Providers Care Automotive Sales Associate Name Role Phone Lazara Bangura CNP Primary Care Provider U garybrigidNaga Mcknight [phone] Allergies Allergen (clinical drug ingredient) Drug/Non Drug Allergy documented on EMR Reaction Allergy Type Onset Date Status ticagrelor Brilinta shortness of breath Drug Allergy Active Results Component Value Reference Range Notes CT lung screening low-dose Reviewed date:02/14/2025 03:46:39 PM Interpretation: Performing Lab: Notes/Report: Source Facility: [place] [address] CT Scan Report Signed Patient: LELA GUTIERREZ MR#: [id number] : 1950 Acct:[id number] Age/Sex: 74 / F ADM Date: 02/14/25 Loc: CT Attending Dr: Naga Ventura D.O. Ordering Physician: Naga Ventura D.O. Date of Service: 02/14/25 Procedure(s): CT lung screening low-dose Accession Number(s): [id number] cc: LAZARA BANGURA [place] [address] Patient Name: LELA GUTIERREZ MRN: [id number] date: 1950 Sex: F Assigned Patient Location: CT Current Patient Location: CT Accession/Order Number: [id number] Exam Date: 02/14/2025 14:53 Report Date: 02/14/2025 15:18 At the request of: NAGA VENTURA DO Procedure: CT lung screening low-dose CT Chest lung screening without contrast TECHNIQUE: Axial imaging with 2-D reconstruction. The CT exam was performed using one or more the following dose reduction techniques: Automated exposure control, adjustment of the MA and/or Kv according to patient size, or use of the iterative reconstruction technique. History: Lung screening COMPARISON: 11/18/2023 THYROID: Unremarkable TRACHEA AND BRONCHI: Patent ESOPHAGUS: Unremarkable. HEART: Within normal limits PERICARDIAL EFFUSION: None CORONARY ARTERY CALCIFICATION: Present MEDIASTINUM: No adenopathy. No pneumoperitoneum. No mediastinal hematoma. PULMONARY LENO: No hilar mass or adenopathy is seen. THORACIC AORTA Unremarkable LUNG NODULE developing posterior subpleural 4 mm groundglass nodule of the basilar portion of the left lower lobe seen with image #122. LUNGS: Emphysema. Apical scarring lingular atelectasis. Calcified granuloma right upper lobe PLEURAL EFFUSION: None PNEUMOTHORAX: No pneumothorax seen. CHEST WALL: No abnormality AXILLA:Unremarkable BONY STRUCTURES Intact UPPER ABDOMEN: Images of the upper abdomen are noncontributory. CT/CT lung screening low-dose IMPRESSION: Developing 4 mm groundglass nodule of the left lower lobe. FINAL ASSESSMENT: Benign finding Lung-RADS Version 1.0 Assessment Category: 2 REMARKS: Continued annual screening with LDCT in 12 months is recommended. Impression dictated by: Bryan Velez M.D. 02/14/2025 3:18 PM Dictation Location: [place] [address] Electronically authenticated by: [id number] Y Date: 02/14/2025 15:18 Dictated By: Bryan Velez D.O. Signed By: 02/14/25 1520 DD/ 1518 TD/TT: Medical Observer: [place] [address] CT Scan Report Signed Patient: YAYA GUTIERREZ MR#: [id number] : 1950 Acct:[id number] Age/Sex: 74 / F ADM Date: 02/14/25 Loc: CT Attending Dr: Naga Ventura D.O. Ordering Physician: Naga Ventura D.O. Date of Service: 02/14/25 Procedure(s): CT lorenza g screening low-dose Accession Number(s): [id number] cc: LAZARA BANGURA [place] [address] Patient Name: LELA GUTIERREZ MRN: [id number] date: 1950 Sex: F Assigned Patient Location: CT Current Patient Location: CT Accession/Order Numb er: [id number] Exam Date: 02/14/2025 14:53 Report Date: 02/14/2025 15:18 At the request of: NAGA VENTURA DO Procedure: CT lung s creening low-dose CT Chest lung screen ing without contrast TECHNIQUE: Axial john ging with 2-D reconstruction. The CT exam was performed using one or more th e following dose reduction techniques: Automated exposure control, adjustment of the MA and/or Kv according to patient size, or use of the iterative recons truction technique. History: Lung screening COMPARISON: 11/18/2023 THYROID: Unremarkable TRACHEA AND BRONCHI: Patent ESOPHAGUS: Unremarkable. HEART: Within normal limits PERICARDIAL EFFUSION: None CORONARY ARTERY CALC IFICATION: Present MEDIASTINUM: No kingsley opathy. No pneumoperitoneum. No mediastinal hematoma. PULMONARY LENO: No h ilar mass or adenopathy is seen. THORACIC AORTA Unremarkable LUNG NODULE developi ng posterior subpleural 4 mm groundglass nodule of the basilar portion of t he left lower lobe seen with image #122. LUNGS: Emphysema. Ap ical scarring lingular atelectasis. Calcified granuloma right upper lobe PLEURAL EFFUSION: None PNEUMOTHORAX: No pne umothorax seen. CHEST WALL: No abnormality AXILLA:Unremarkable BONY STRUCTURES Intact UPPER ABDOMEN: Image s of the upper abdomen are noncontributory. C T/CT lung screening low-dose IMPRESSION: Developi ng 4 mm groundglass nodule of the left lower lobe. FINAL ASSESSMENT: Be nign finding Lung-RADS Version 1. 0 Assessment Category: 2 REMARKS: Continued a nnual screening with LDCT in 12 months is recommended. Impression dictated by: Bryan Velez M.D. 02/14/2025 3:18 PM Dictation Location: [place] [address] Electronically authe nticated by: [id number] Y Date: 02/14/2025 15:18 Dictated By: Bryan Velez D.O. Signed By: 02/14/25 1520 DD/ 1518 TD/TT: Medical Observer: Reason For Referral No Information Medications Medication SIG (Take, Route, Frequency, Duration) Notes Start Date End Date Status Cilostazol 50 MG 1 tablet 30 minutes before or 2 hours after breakfast and dinner Orally Twice a day for 30 day(s) 11/21/2024 Active Spironolactone 25 MG Oral for 60 Days Active Estradiol 0.1 MG/GM Vaginal for 42 Days Active Vitamin D 50 MCG (1999 UT) 1 tablet Oral ly Once a day for 30 day(s) 11/21/2024 Active Atorvastatin Calcium 80 MG 1 tablet Oral ly Once a day Active Pantoprazole Sodium 40 MG Oral for 30 Days Active Nicotine Step 3 7 MG/24HR 1 patch to ski n Transdermal Once a day for 30 days Not-Taking Aspirin 81 81 MG 1 tablet Orally Once a day for 30 day(s) 11/21/2024 Active Nitroglycerin 0.4 MG Sublingual for 8 Days Active Midodrine HCl 10 MG Oral for 30 Days Active Ohtuvayre 3 MG/2.5ML 2.5mL Inhalation BID 11/21/19 Active Albuterol Sulfate HFA 108 (90 Base) MCG/ACT 2 puffs as needed for SOB Inhalation Q4H for 90 days Dispense #3 inhalers Active Breztri Aerosphere 160-9-4.8 MCG/ACT 2 puffs Inhalation BID for 90 days Rinse after use. Dispense #3 inhalers Active metFORMIN HCl 500 MG 1 tablet with a cliff l Orally Once a day Active Metoprolol Succinate ER 25 MG Oral for 60 Days Active Ezetimibe 10 MG Oral for 90 Days Active Jardiance 10 MG Oral for 30 Days Active Immunizations Vaccine Route Administration Date Status Comme nts Flu, Fluad (01184) 65 yrs + High Dose Seasonal (3803-4334) Unknown 12/31/2022 Administered Flu, Fluad (36087) 65 yrs + High Dose Seasonal (8137-5255) Unknown 07/18/2023 Administered Novavax 5 mcg/0.5 mL Unknown 06/20/2024 Administered Pneumococcal (Prevnar 13) Unknown 09/10/2015 Administer ed Pneumococcal (Prevnar 20) Unknown 06/20/2024 Administer ed SARS-COV-2 (COVID 19 Moderna - Booster 0.25mL) Unknown 01/09/2021 Administered Spikevax Moderna Syringe Pre -Filled 50 mcg/0.5 mL Unknown 07/19/2023 Administered ZOSTER (SHINGLES) VACCINE (HZV) Unknown 01/31/2023 Admi nistered ZOSTER (SHINGLES) VACCINE (HZV) Unknown 05/16/2023 Admi nistered Social History Tobacco Use: Social History Observation Description Date Details (start date - stop date) Former Smoker NA - NA Tobacco Control (Standard) Question Answer Notes Tobacco use: Former smoker How long has it been since y ou last smoked? 1-3 months Additional Findings: Tobacco non-user Ex -moderate cigarette smoker (10-19/day) Problems Problem Type SNOMED Code ICD Code Onset Dates Problem Status W/U Status Risk Notes Problem Secondary polycythemia (19638550) Secondary polycythemia (D75.1) Active confirmed Problem Ischemic cardiomyopathy (441732378) Ischemic cardiomyopathy (I25.5) Active confirmed Problem Centrilobular emphysema (40162807) Centrilobular emphysema (J43.2) Active confirmed Problem Chronic respiratory failure (98375629) Chronic respiratory failure with hypoxia (J96.11) Active confirmed Problem Chronic respiratory failure (63725208) Chronic respiratory failure with hypercapnia (J96.12) Active confirmed Problem 026647698 FPC (current) use of inhaled steroids (Z79.51) Active confirmed Problem Coronary artery disease (41430484) Coronary artery disease (I25.10) Active confirmed Problem Type II diabetes mellitus well controlled (885220765) Diabetes mellitus type 2, controlled (E11.9) Active confirmed Problem Ex-tobacco user (finding) (649531855) History of tobacco abuse (Z87.891) Active confirmed Problem 127171119 Multifocal pneumonia (J18.9) Active confirmed Problem Secondary pulmonary hypertension (45933314) Other secondary pulmonary hypertension (I27.29) Active confirmed Problem 02927773 Pagophagia (F50.89) Active confirmed Vital Signs Heart Rate 71 /min 02/13/2025 Temperature 96.9 degrees Fahrenheit 02/13/2025 Respiratory Rate 18 /min 02/13/2025 Oximetry 92 % 02/13/2025 Blood pressure diastolic 77 mm Hg 02/13/2025 Height 60 in 02/13/2025 Blood pressure systolic 141 mm Hg 02/13/2025 Weight 109.4 lbs 02/13/2025 BMI 21.36 kg/m2 02/13/2025 Encounters Encounter Location Date Provider Diagnosis [facility] [place] [address] [place] [address] 10/18/2024 Naga Ventura Centrilobular emphys felicitas J43.2 [facility] [address] [place] [address] 12/05/2024 [facility] [place] [address] [place] [address] 02/14/2025 Naga [facility] Nicotine dependence, cigarettes, in remission F17.211 and Encounter for screening for malignant neoplasm of respiratory organs Z12.2 [facility] [place] [address] [place] [address] 11/21/2024 Naga Ayana Centrilobular emphys felicitas J43.2 ; Other secondary pulmonary hypertension I27.29 ; Ischemic cardiomyopathy I25.5 ; Coronary artery disease I25.10 ; History of tobacco abuse Z87.891 ; Diabetes mellitus type 2, controlled E11.9 and buttermaker continuous churn (current) use of inhaled steroids Z79.51 [facility] [address] [place] [address] 02/13/2025 [place] Centrilobular emphys felicitas J43.2 ; Other secondary pulmonary hypertension I27.29 ; Ischemic cardiomyopathy I25.5 ; Coronary artery disease I25.10 ; History of tobacco abuse Z87.891 ; Diabetes mellitus type 2, controlled E11.9 ; buttermaker continuous churn (current) use of inhaled steroids Z79.51 and Encounter for screening for malignant neoplasm of respiratory organs Z12.2 Assessments Encounter Date Diagnosis (ICD Code) Assessment Notes Treatment Notes Treatment Clinical Notes Section Notes 11/21/2024 Centrilobular emphysema (ICD-10 - J43.2) Prior treatment: Breztri > Trelegy Patient was doing fair but remains symptomatic on Breztri. Cardiac intervention improved her dyspnea some, but she remains short of breath with exertion. Discussed with the patient and her [id number]-uio that since she was last seen, 2 new medications have been approved for COPD consisting of pharmacological classes unavailable up until now: Ohtuvayre and Dupixent. Discussed the Ohtuvayre is administered via nebulizer twice daily. Most reported adverse effects include mental status changes/depression . She is not on theophylline or Daliresp. Dupixent is an injection every 2 weeks and she would need to have an eosinophil level checked; is only approved for levels 300 and higher. Options for the patient are to wait until she is done with a cardiac workup to see how her breathing is, or proceed with one of the above new pulmonary medications. I suggested to begin with the above as she already has very severe pulmonary function with a FEV1 of 26%. I feel the patient would have more benefit from Ohtuvayre. I provided the patient and daughter along with literature. The patient voiced that she would like to proceed with Ohtuvayre. Paperwork was signed in office. Evrw-bi-hcbm evaluation was performed regarding the need for a nebulizer and nebulizer supplies. Ohtuvayre is administered only via nebulized form and de facto requires a nebulizer. Will order a nebulizer along with the Ohtuvayre. Scheduling patient to follow-up in 3 months to see how her breathing is doing; hopefully she is able to afford Ohtuvayre and have a good response to the medication. 11/21/2024 Other secondary pulmonary hypertension (ICD-10 - I27.29) Echocardiogram 10/30/2024: -RVSP: 57mmHg Suspect due to a combination of group 2 (cardiac) and group 3 (COPD/hypoxia). Will see if this improves after further coronary intervention. Treatment is treating underlying disorders. 02/13/2025 Centrilobular emphysema (ICD-10 - J43.2) Prior treatment: Breztri > Trelegy Overall seems to be doing better on Ohtuvayre on top of Breztri. No significant adverse effects. Continue current therapy. 02/13/2025 Other secondary pulmonary hypertension (ICD-10 - I27.29) Echocardiogram 10/30/2024: -RVSP: 57mmHg Suspect due to a combination of group 2 (cardiac) and group 3 (COPD/hypoxia). 10/18/2024 Centrilobular emphysema (ICD-10 - J43.2) 02/14/2025 Nicotine dependence, cigarettes, in remission (ICD-10 - F17.211) 02/14/2025 Encounter for screening for malignant neoplasm of respiratory organs (ICD-10 - Z12.2) 02/13/2025 Ischemic cardiomyopathy (ICD-10 - I25.5) History: Patient developed ischemic cardiomyopathy consequence of STEMI she had 10/29/2024 secondary to LAD occlusion. Prior to cath, EF was 10%. Currently wearing life vest. 11/21/2024 Ischemic cardiomyopathy (ICD-10 - I25.5) Patient developed ischemic cardiomyopathy consequence of STEMI she had 10/29/2024 secondary to LAD occlusion. Prior to cath, EF was 10%. Currently wearing life vest. Hope is that her function returns, especially after anticipated RCA stent placement. If not, she will need a defibrillator. Despite intervention, she remains short of breath with activity. I believe that there still is an untreated COPD component to her dyspnea which is addressedabove. 11/21/2024 Coronary artery disease (ICD-10 - I25.10) Patient has triple-vessel coronary artery disease, had stents in the past, required emergent intervention for STEMI 10/30/2024. 02/13/2025 Coronary artery disease (ICD-10 - I25.10) Patient has triple-vessel coronary artery disease, had stents in the past, required emergent intervention for STEMI 10/30/2024. 02/13/2025 History of tobacco abuse (ICD-10 - Z87.891) 2ppd x 50 years (100 pack-years), quit 10/29/2024. She has not restarted smoking. Needs LDCT done - it is due now. 11/21/2024 History of tobacco abuse (ICD-10 - Z87.891) 2ppd x 50 years (100 pack-years), quit 10/29/2024. Patient states she quit smoking (again) after her STEMI 10/29/2024. She has voiced I am never going back to smoking again. Last LDCT was 11/18/2023 which showed resolution of abnormal findings from prior testing. She was to have LDCT done this month, but due to the issue surrounding her STEMI, the LDCT was not done.She believes she had a CT done at [facility], but cannot recall. Will see if we can obtain any further records from her stay. Ultimately, treatment of her underlying cardiovascular disease is higher priority than ordering LDCT. Will discuss it at her following visit in 3 months. 11/21/2024 Diabetes mellitus type 2, controlled (ICD-10 - E11.9) Steroids prescribed for this patient's underlying pulmonary disease can adversely affect blood glucose levels, inducing hyperglycemia and worsening underlying diabetes. The patient is encouraged to follow up with the primary care provider to create a plan to manage diabetes in this situation. 02/13/2025 Diabetes mellitus type 2, controlled (ICD-10 - E11.9) Steroids prescribed for this patient's underlying pulmonary disease can adversely affect blood glucose levels, inducing hyperglycemia and worsening underlying diabetes. The patient is encouraged to follow up with the primary care provider to create a plan to manage diabetes in this situation. 02/13/2025 buttermaker continuous churn (current) use of inhaled steroids (ICD-10 - Z79.51) Patient was counseled to rinse & gargle with water after inhaled corticosteroid use. 11/21/2024 buttermaker continuous churn (current) use of inhaled steroids (ICD-10 - Z79.51) Patient was counseled to rinse & gargle with water after inhaled corticosteroid use. 02/13/2025 Encounter for screening for malignant neoplasm of respiratory organs (ICD-10 - Z12.2) Low-dose CT (LDCT) was recommended for lung cancer screening. The patient meets criteria including age 50-77, a smoking history of at least 20 pack-years, is currently smoking or has ceased smoking within the past 15 years, and has no signs or symptoms of lung cancer. Shared decision making performed with the patient. After LDCT has been completed, will review report and/or imaging and provide appropriate recommendations for the patient, including additional follow up if needed. Patient was counseled on smoking cessation/continue d tobacco abstinence. 11/21/2024 Other Plan Of Treatment Next Appt Details Provider Name:Naga Ventura, 08/14/2025 02:00:00 PM, [address] [place], [address], Insurance Providers Payer Name Payer Address Payer Phone Subscriber Number Group Number Insured Name Patient Relationship to Insured Coverage Start Date Coverage End Date MEDICARE [place] [address] [place] [place] [address] [id number] Lela Gutierrez Self - patient is the insured 5 [employer] [address] BEKAH HUANG [id number] PLAN D Lela Gutierrez Self - patient is the insured Medical (General) History Medical History History ICD Code Centrilobular emphysema J43.2 Diabetes mellitus type 2, controlled E11 .9 Essential Hypertension I10 Coronary artery disease I25.10 Chronic respiratory failure with hypoxia J96.11 Chronic respiratory failure with hyperca pnia J96.12 Hyperlipidemia E78.5 Peripheral vascular disease I73.9 Restless leg syndrome G25.81 Secondary polycythemia D75.1 Bilateral carotid artery stenosis I65.23 Rectocele N81.6 Uterine prolapse N81.4 Ischemic cardiomyopathy I25.5 Other secondary pulmonary hypertension I 27.29 Infrarenal abdominal aortic aneurysm (AA A) without rupture I71.[address] elevation myocardial infar ction (STEMI) I25.2 Surgical History Surgery Date(Month/Year) Laparotomy Left Oophorectomy Coronary Angioplasty w/stent (2) placeme nt 2012 Coronary Angioplasty w/stent 3) placemen t 10/29/2024 Hospitalization History Reason Date(Month/Year) STEMI-[facility] 10/29/2024 Severe Sepsis secondary to Pneumonia
--- OUTSIDE RECORDS SUMMARY | 2025-03-01 09:47 | XMS_ITS | Encounter Summary ---
Author Organization [facility] [id number] [address] [place] [address] Care Team Providers Care Swine Genetics Researcher Name Role Phone Lazara Hernandez APRN-ZEUS Primary Care Provid er Reason for Visit * Reason Comments Med Refill Encounter Details Date Type Department Care Team (Late st Contact Info) Description 03/20/2021 Refill [facility] [address] [place] [address] Cammy Sun, TAMELA [address] [place] [address] Med Refill Social History Tobacco Use Types Packs/Day Years Used Date Smoking Tobacco: Every Day Cigarettes 1 5 Smokeless Tobacco: Never Alcohol Use Standard Drinks/Week Comments No 0 (1 standard drink = 0.6 oz pur e alcohol) Childcare Answer Date Recorded Childcare Unknown 03/14/2019 [...] have Coronavirus / COVID-19? No / Unsure 03/03/2021 2:19 PM EDT documented as of this encounter Miscellaneous Notes * Telephone Encounter - Jodie Yanes RN - 03/20/2021 2:42 PM EDT Refilled 03/20 documented in this encounter Plan of Treatment Upcoming Encounters Date Type Department Care Team (Late st Contact Info) Description 03/04/2025 12:45 PM EDT Clinical Support [facility] Cardiac Re[facility] [address] [place] [address] 03/06/2025 12:45 PM EDT Clinical Support [facility] [address] [place] [address] 03/07/2025 12:45 PM EDT Clinical Support [facility] Card[facility] [address] [facility] [place] [address] 03/11/2025 12:45 PM EDT Clinical Support [facility] Card[facility] Re[facility] [address] [facility] [place] [address] 03/11/2025 2:45 PM EDT Office Visit [facility] [address] [address] Yamilka Walsh M, DO [address] [facility] [address] [place] [address] 03/13/2025 12:45 PM EDT Clinical Support [facility] Card[facility] [address] [place] [address] 03/14/2025 12:45 PM EDT Clinical Support [facility] [address] [place] [address] 03/18/2025 12:45 PM EDT Clinical Support [facility] Card[facility] Re[facility] [address] [place] [address] 03/20/2025 12:45 PM EDT Clinical Support [facility] Card[facility] [address] [place] [address] 03/21/2025 12:45 PM EDT Clinical Support [facility] [address] [place] [address] 03/25/2025 12:45 PM EDT Clinical Support [facility] Card[facility] [address] [place] [address] 03/26/2025 1:15 PM EDT Office Visit [facility] Obstetrics/Gynecology [address] [place] [address] Tasha Moore MD [address] [place] [address] 03/27/2025 12:45 PM EDT Clinical Support [facility] Card[facility] Re[facility] [address] [place] [address] 03/28/2025 12:45 PM EDT Clinical Support [facility] Card[facility] Re[facility] [address] [place] [address] 04/01/2025 12:45 PM EDT Clinical Support [facility] Card[facility] Re[facility] [address] [place] [address] documented as of this encounter Visit Diagnoses Not on filedocumented in this encounter Additional Health Concerns Infection Onset Date Last Indicated Resolved Time COVID-19 Rule-Out 10/03/2022 10/03/2022 10/03/2022 4:37 PM EST documented as of this encounter Care Teams Swine Genetics Researcher Relationship Specialty Start Date End Date Lazara Hernandez APRN-[place] [address] [place] [address] PCP - General Nurse Practitioner 06/11/24 documented as of this encounter
--- OUTSIDE RECORDS SUMMARY | 2025-03-01 09:47 | XMS_ITS | Encounter Summary ---
Author Organization [employer] Address [facility] [id number] [address] [place] [address] Care Team Providers Care Patent Clerk Name Role Phone Lazara Hernandez Primary Care Provid er Encounter Details Date Type Department Care Team (Late st Contact Info) Description 04/16/2021 Telephone [facility] [address] [facility] [place] [phone] Hetal Guillen MA Social History Tobacco Use Types Packs/Day Years Used Date Smoking Tobacco: Every Day Cigarettes 1.5 5 Smokeless Tobacco: Never Alcohol Use Standard [...] have Coronavirus / COVID-19? No / Unsure 04/13/2021 10:49 AM EDT documented as of this encounter Miscellaneous Notes * Telephone Encounter - Hetal Guillen MA - 04/16/2021 2:46 PM EDT Called and left msg for patient to call and schedule next pessary appt after jun [address] Pena documented in this encounter Plan of Treatment Upcoming Encounters Date Type Department Care Team (Late st Contact Info) Description 03/04/2025 12:45 PM EDT Clinical Support [facility] Card[facility] Re[facility] [address] [place] [address] 03/06/2025 12:45 PM EDT Clinical Support [facility] [address] [place] [address] 03/07/2025 12:45 PM EDT Clinical Support [facility] [address] [place] [address] 03/11/2025 12:45 PM EDT Clinical Support [facility] [address] [place] [address] 03/11/2025 2:45 PM EDT Office Visit [facility] Vascular [address] [facility] [place] [address] Yamilka Walsh, DO [address] [facility] [address] [place] [address] 03/13/2025 12:45 PM EDT Clinical Support [facility] [address] [place] [address] 03/14/2025 12:45 PM EDT Clinical Support [facility] [address] [place] [address] 03/18/2025 12:45 PM EDT Clinical Support [facility] [address] [place] [address] 03/20/2025 12:45 PM EDT Clinical Support [facility] [address] [place] [address] 03/21/2025 12:45 PM EDT Clinical Support [facility] [address] [place] [address] 03/25/2025 12:45 PM EDT Clinical Support [facility] [address] [place] [address] 03/26/2025 1:15 PM EDT Office Visit [facility] Obstetrics/Gynecology [address] [place] [phone] Tasha Moore MD [address] [facility] [place] [place] [address] 03/27/2025 12:45 PM EDT Clinical Support [facility] [address] [place] [address] 03/28/2025 12:45 PM EDT Clinical Support [facility] [address] [place] [address] 04/01/2025 12:45 PM EDT Clinical Support [facility] [address] [place] [address] documented as of this encounter Visit Diagnoses Not on filedocumented in this encounter Additional Health Concerns Infection Onset Date Last Indicated Resolved Time COVID-19 Rule-Out 10/03/2022 10/03/2022 10/03/2022 4:37 PM EST documented as of this encounter Care Teams Patent Clerk Relationship Specialty Start Date End Date Lazara Hernandez APRN-NP [address] [place] [address] PCP - General Nurse Practitioner 06/11/24 documented as of this encounter
--- OUTSIDE RECORDS SUMMARY | 2025-03-01 09:47 | XMS_ITS | Encounter Summary ---
Author Organization [facility] Address [address] [place] [address] Care Team Providers Care Global Commodity Manager Name Role Phone LitzyLazara lozada Randa INTAKE ASSESSOR Primary Care Provider Dario Deleon DO Unavailable [phone] Encounter Details Date Type Department Care Team (Late st Contact Info) Description 07/10/2024 External Result Encounter [facility] External Department Unsolicited Dario Deleon, DO [address] [place] [address] Social History Tobacco Use Types Packs/Day Years Used Date Smoking Tobacco: Every Day Cigarettes Smokeless Tobacco: Never Alcohol Use Standard Drinks/Week Comments Not Currently 0 (1 standard drink = 0.6 oz pur e alcohol) Comments Unknown Sex and Gender Information Value Date Recorded Sex Assigned at Not on file Legal Sex Female 8:00 PM EDT Gender Identity Not on file Sexual Orientation Not on file documented as of this encounter Plan of Treatment Not on file documented as of this encounter Procedures Procedure Name Priority Date/Time Associated Diagnosis Comments ECG 12-LEAD 07/10/2024 2:33 PM EDT documented in this encounter Results * ECG 12 lead (07/10/2024 2:33 PM EDT) 07/10/2024 2:33 PM EDT [facility] - 07/10/2024 8:15 PM EDT [facility] Main [address] [address] Electrocardiograph Report Signed Patient: Lela Gutierrez MR#: [id number] 9 : 1950 Acct:[id number] Age/Sex: 74 / F ADM Date: 07/10/24 Loc: PS Room: Type: REG CLI Attending Dr: Dario Deleon DO Ordering Provider: Dario Deleon DO Date of Service: 07/10/2405/26/1419 ECG/ECG 12 lead ECG: for surgery 07/16/24 Copies to: Test Reason : Blood Pressure : */* mmHG Vent. Rate : 77 BPM Atrial Rate : 77 BPM P-R Int : 174 ms QRS Dur : 86 ms QT Int : 382 ms P-R-T Axes : 78 -17 69 degrees QTcB Int : 432 ms Sinus rhythm with occasional premature ventricular complexes Cannot rule out Anterior infarct , age undetermined Abnormal ECG Confirmed by Sarah Castano ([id number]) on 07/10/2024 8:15:41 PM Referred By: Electronically Signed By: Sarah Castano Transcribed By: MUS Signed By Sarah Castano MD 2014 Procedure Note Sarah Castano MD - 07/10/2024 [facility] Main [place] [address] [place] [address] Electrocardiograph Report Signed Patient: Lela GutierrezMR#: [id number] 9 : 1950Acct:[id number] Age/Sex: 74 / FADM Date: 07/10/24 Loc: PS Room:Type: REG CLI Attending Dr: Dario Deleon DO Ordering Provider: Dario Deleon DO Date of Service: 07/10/2405/26/1419 ECG/ECG 12 lead ECG: for surgery 07/16/24 Copies to: Test Reason : Blood Pressure : */* mmHG Vent. Rate : 77 BPM Atrial Rate : 77 BPM P-R Int : 174 ms QRS Dur : 86 ms QT Int : 382 ms P-R-T Axes : 78 -17 69 degrees QTcB Int : 432 ms Sinus rhythm with occasional premature ventricular complexes Cannot rule out Anterior infarct , age undetermined Abnormal ECG Confirmed by Sarah Castano ([id number]) on 07/10/2024 8:15:41 PM Referred By: Electronically Signed By: Sarah Castano Transcribed By: MUS Signed By Sarah Castano MD2014 us Dario Deleon DO ECG ORDERABLES Final Resul t [facility] [address] [place] [address], documented in this encounter Visit Diagnoses Not on filedocumented in this encounter Care Teams Global Commodity Manager Relationship Specialty Start Date End Date Lazara Hernandez NP [address] [place] [address] [place] [address] PCP - General Family Medicine 07/09/24 Dario Deleon DO [address] [place] [address] Otolaryngology 07/23/24 documented as of this encounter
--- OUTSIDE RECORDS SUMMARY | 2025-03-01 09:47 | XMS_ITS | Clinical Summary ---
Author Organization [facility] Address [address] [facility] [place] [address] Care Team Providers Care Seafood Process Worker Name Role Phone Lazara Hernandez WAIST PRESSER Primary Care Provider Dario Deleon DO Unavailable Allergies Active Allergy Reactions Criticality Noted Date Comments Ticagrelor 07/16/2024 Other Reaction(s): Difficulty Breathing Medications atorvastatin (Lipitor) 80 MG tablet Daily 04/16/2024 Active ezetimibe (Zetia) 10 MG tablet Take 10 mg by mouth in the morning. 06/20/2024 Active furosemide (Lasix) 20 MG tablet Daily 01/30/2024 Active estradiol (Estrace) 0.1 MG/GM vaginal cream Insert 1 g into the vagina in the morning. 2024 Active cholecalciferol (Vitamin D-3) 50 MCG (2000 UT) capsule Daily 04/17/2024 Active lisinopril 5 MG tablet Daily 01/30/2024 Active metFORMIN (Glucophage) 500 MG tablet Twice daily 01/30/2024 Active magnesium oxide 400 MG capsule Take 400 mg by mouth in the morning. Active HYDROcodone-acet aminophen ([place]) 5-325 MG tablet 1 tablet 07/16/2024 Active Active Problems Problem Noted Date Diagnosed Date Cigarette nicotine dependence without complicati on 07/09/2024 Mass of right parotid gland 07/09/2024 Resolved Problems Problem Noted Date Diagnosed Date Resolved Date Postoperative pain 07/20/2024 4 Controlled type 2 diabetes m ellitus without complication 07/09/2024 07/09/2024 Difficulty walking 07/09/2024 4 Localized swelling, mass and lump, neck 07/09/2024 07/09/2024 Muscle cramping 07/09/2024 07/09/2024 Osteoporosis 07/09/2024 07/09/2024 Post-menopausal 07/09/2024 07/09/2024 Pressure injury of right foot, stage 1 07/09/2024 07/09/2024 Restless leg syndrome 07/09/20242023 Medicare annual wellness visit, subsequent 07/09/2024 07/09/2024 Screening for osteoporosis 07/09/2024 1 Thyroid nodule 07/09/2024 07/09/2024 Midline cystocele 04/17/2024 07/09/2024 Atherosclerosis of aorta 01/10/202304/2024 Infrarenal abdominal aortic aneurysm (AAA) without rupture 01/10/2023 07/09/2024 Closed fracture of one rib 12/19/2022 1 Acute respiratory failure with hypoxia 10/04/2022 07/09/2024 Tobacco abuse 05/12/2020 07/09/2024 Atherosclerosis of [place] co ronary artery of [place] heart without angina pectoris 08/02/201804/2024 Rectal prolapse 01/02/2018 07/09/2024 Overview (07/09/2024): Last Assessment & Plan: Discussed pt will need to see colorectal surgery and pt would like to contact them herself. Uterine prolapse 10/26/2017 07/09/2024 Overview (07/09/2024): Last Assessment & Plan: Patient has attempted pessary. She is a poor surgical candidate. 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 We discussed vaginal hysterectomy with suspension. Alternative physician names provided. Discussed she will need 8 wks surrounding surgery and she will have a 35 lbs lifting restriction thereafter. Discussed she will need to be smoke free for four weeks before and after surgery. Bilateral carotid artery stenosis 02/14/2017 07/09/2024 Mixed hyperlipidemia 11/22/2016 024 Atherosclerotic PVD with int ermittent claudication 11/22/2016 07/09/2024 Peripheral arterial disease 11/22/2016 07/09/2024 Immunizations Immunization Administration Dates Next Due Covid-19, Subunit, Rs-nanopa rticle, Adjuvanted, Pf, 5 Mcg/0.5 Ml 06/20/2024 Influenza, High Dose Seasona l, Preservative Free 07/18/2023,12/31/2022,06/26/2016 Influenza, seasonal, injectable 09/10/2015 Moderna SARS-CoV-2 Vaccination 01/09/2021,2020 Pneumococcal Conjugate PCV 13 09/10/2015 Pneumococcal Conjugate PCV 20 06/20/2024, 024 SARS-COV-2 (COVID-19) vaccin e, mRNA, spike protein, LNP, PF, 50 mcg/0.5 mL 07/19/2023 Zoster, Recombinant 05/16/2023,01/31/2023 Social History Tobacco Use Types Packs/Day Years Used Date Smoking Tobacco: Every Day Cigarettes Smokeless Tobacco: Never Tobacco Cessation:Ready to Q uit: Not Asked; Counseling Given: Not Answered Alcohol Use Standard Drinks/Week Comments Not Currently 0 (1 standard drink = 0.6 oz pur e alcohol) Comments Unknown Sex and Gender Information Value Date Recorded Sex Assigned at Not on file Legal Sex Female 8:00 PM EDT Gender Identity Not on file Sexual Orientation Not on file Last Filed Vital Signs Vital Sign Reading Time Taken Comments Blood Pressure - - Pulse - - Temperature - - Respiratory Rate - - Oxygen Saturation - - Inhaled Oxygen Concentration - - Weight 50.8 kg (112 lb) 07/23/2024 9:34 AM EDT Height 152.4 cm (5') 07/23/2024 9:34 AM EDT Body Mass Index 21.87 07/23/2024 9:34 AM EDT Plan of Treatment Health Maintenance Due Date Last Done Comments CT Colonography 1950 Colonoscopy 1950 Colorectal Cancer Screening 1950 FIT-DNA 1950 FIT 1950 FOBT 1950 Sigmoidoscopy 1950 Mammogram 11/23/2020 11/23/2019, 020 01/2019, 02/16/2018, Additional history exists Influenza Vaccine (Season Ended) 2025 07/18/2023, 12/31/2022, 06/26/2016, Additional history exists Pneumococcal Vaccine: 65+ Years Completed 06/20/2024, 02/08/2024, 09/10/2015 Insurance MEDICARE [employer] Care Teams Seafood Process Worker Relationship Specialty Start Date End Date Lazara Hernandez NP [address] [facility] [address] PCP - General Family Medicine 07/09/24 Dario Deleon DO [address] [place] [address] Otolaryngology 07/23/24
--- OUTSIDE RECORDS SUMMARY | 2025-03-01 09:47 | XMS_ITS | Encounter Summary ---
Author Organization [facility] Address [address] [place] [address] Care Team Providers Care Director Of Special Education Name Role Phone Lazara Hernandez APRN, CNP Primary Care Pro vider Reason for Visit * Reason Comments Medication Refill Encounter Details Date Type Department Care Team (Late st Contact Info) Description 02/14/2025 Refill Crystal Press Brake Operator - [place] [address] [place] [address] Monica Ambriz APRN - CNP [address] [facility] [place] [address] [place] [address] Medication Refill Social History Tobacco Use Types Packs/Day Years Used Date Smoking Tobacco: Former Cigarettes Q uit: 1980 Passive Smoke Exposure: Current Smokeless Tobacco: Never Comments:Just quit 2024 Alcohol Use Standard Drinks/Week Comments Defer 0 (1 standard drink = 0.6 oz pur e alcohol) [facility] Utilities Answer Date Recorded In the past 12 months has [employer], gas, oil, or water [employer] threatened to shut off services in your home? No 12/31/2024 AUDIT-C Answer Date Recorded Q1: How often do you have a drink containing alcohol? Never 01/10/2025 Q2: How many drinks containi ng alcohol do you have on a typical day when you are drinking? Patient does not drink Q3: How often do you have si x or more drinks on one occasion? Never 01/10/2025 Hunger Vital Sign Answer Date Recorded Within the past 12 months, y ou worried that your food would run out before you got the money to buy more. Never true 01/01/20 25 Within the past 12 months, t he food you bought just didn't last and you didn't have money to get more. Never true 12/31/2024 PRAPARE - Transportation Answer Date Re corded In the past 12 months, has l ack of transportation kept you from medical appointments or from getting medications? No 12/03 In the past 12 months, has l ack of transportation kept you from meetings, work, or from getting things needed for daily living? No 12/31/2024 Housing Stability Vital Sign Answer Beau e Recorded In the last 12 months, was t here a time when you were not able to pay the mortgage or rent on time? No 12/31/2024 In the past 12 months, how m any times have you moved where you were living? 0 12/31/2024 At any time in the past 12 m [facility], were you homeless or living in a care home (including now)? No 12/31/2024 Food Insecurity Answer Date Recorded Within the past 12 months, y ou worried that your food would run out before you got the money to buy more. 1 12/31/2024 Within the past 12 months, t he food you bought just didn't last and you didn't have money to get more. 1 12/31/2024 Interpersonal Safety Domain Source: IP Abuse Scr eening Answer Date Recorded Physical abuse Denies 01/10/2025 Verbal abuse Denies 01/10/2025 Emotional abuse Denies 01/10/2025 Financial abuse Denies 01/10/2025 Sexual abuse Denies 01/10/2025 Comments No Sex and Gender Information Value Date Recorded Sex Assigned at Female 11/26/2024 8:49 AM EST Legal Sex Female 9:56 AM EDT Gender Identity Female 11/26/2024 8:49 AM EST Sexual Orientation Straight 11/26/2024 8: 49 AM EST documented as of this encounter Plan of Treatment Upcoming Encounters Date Type Department Care Team (Late st Contact Info) Description 04/30/2025 2:00 PM EDT Office Visit Marah Press Brake Operator - [place] [address], [address] [place], [place] [id number] Monica Ambriz, BULL RIDER - HYPERBARIC TECH [address], [address] [place], [place] [id number] 3 mo fu documented as of this encounter Visit Diagnoses Not on filedocumented in this encounter Care Teams Director Of Special Education Relationship Specialty Start Date End Date Lazara Hernandez APRN - JEET [address] [place] [id number] PCP - General 10/30/24 documented as of this encounter
--- OUTSIDE RECORDS SUMMARY | 2025-03-01 09:47 | XMS_ITS | Encounter Summary ---
Author Organization [facility] Address [id number] [address] [place] [address] Care Team Providers Care Ballistics Teacher Name Role Phone Lazara Hernandez APRN-ZEUS Primary Care Provid er Encounter Details Date Type Department Care Team (Late st Contact Info) Description 06/06/2024 Orders Only [facility] Cardiology [address] [place] [address] External, Scanning Provider Social History Tobacco Use Types Packs/Day Years Used Date Smoking Tobacco: Some Days Cigarettes 1.5 5 Started: 10/03/2017; Last attempted to quit: 10/03/2022 Smokeless Tobacco: Never Comments:PT STATES HAS [...] got money to buy more. Never True 10/18/2023 Within the past 12 months th e food we bought just didn't last and we didn't have money to get more. Never True 10/18/2023 Purpose - Life Answer Date Recorded Purpose [...] Description 03/04/2025 12:45 PM EDT Clinical Support [facility] Cardiac Re[facility] [address] [place] [address] 03/06/2025 12:45 PM EDT Clinical Support [facility] Cardiac Rehab [address] [place] [address] 03/07/2025 12:45 PM EDT Clinical Support [facility] Cardiac Rehab [address] [place] [address] 03/11/2025 12:45 PM EDT Clinical Support [facility] Cardiac Rehab [address] [place] [address] 03/11/2025 2:45 PM EDT Office Visit [facility] Vascular [place] [address] [place] [address] [place] [address] [place] [address] [place] [address] 03/13/2025 12:45 PM EDT Clinical Support [facility] Cardiac Rehab [address] [place] [address] 03/14/2025 12:45 PM EDT Clinical Support [facility] Cardiac Rehab [address] [facility] [place] [address] 03/18/2025 12:45 PM EDT Clinical Support [facility] Cardiac Rehab [address] [place] [address] 03/20/2025 12:45 PM EDT Clinical Support [facility] Cardiac Rehab [address] [place] [address] 03/21/2025 12:45 PM EDT Clinical Support [facility] Cardiac Rehab [address] [place] [address] 03/25/2025 12:45 PM EDT Clinical Support [facility] Cardiac Rehab [address] [place] [address] 03/26/2025 1:15 PM EDT Office Visit [facility]Gynecology [address] [place] [address] Tasha Moore MD [address] [facility] [place] [address] 03/27/2025 12:45 PM EDT Clinical Support [facility] Cardiac Rehab [address] [place] [address] 03/28/2025 12:45 PM EDT Clinical Support [facility] Cardiac Rehab [address] [place] [address] 04/01/2025 12:45 PM EDT Clinical Support [facility] Cardiac Rehab [address] [place] [address] documented as of this encounter Procedures Procedure Name Priority Date/Time Associated Diagnosis Comments MULTIPLE LABS Routine 06/06/2024 8:45 AM EDT documented in this encounter Results * Multiple labs (06/06/2024 8:45 AM EDT) us Scanning Provider External [facility]AGING Final Result MANUALLY TRANSCRIBED RESULTS documented in this encounter Visit Diagnoses Not on filedocumented in this encounter Additional Health Concerns Assessment Noted Time PHQ-9 Depression Total Score: 0 10/28/19 9:42 AM EST documented as of this encounter Care Teams Ballistics Teacher Relationship Specialty Start Date End Date Lazara Hernandez APRN-NP [address] [place] [address] PCP - General Nurse Practitioner 06/11/24 documented as of this encounter
--- OUTSIDE RECORDS SUMMARY | 2025-03-01 09:47 | XMS_ITS | Encounter Summary ---
Author Organization [facility] Address [facility] [id number] [address] [place] [address] Care Team Providers Care Director Of Business Services Name Role Phone Lazara Hernandez Primary Care Provid er Reason for Visit * Reason Comments Med Refill Encounter Details Date Type Department Care Team (Late st Contact Info) Description 02/17/2024 Refill [facility] [address] [place] [address] Tessa Deutsch APRN-CNP [address] [place], [place] [id number] Med Refill Social History Tobacco Use Types [...] on file documented as of this encounter Miscellaneous Notes * Telephone Encounter - Sravani Otoole LPN - 02/17/2024 6:27 AM EDT Last ov 02/07/23 Cmp 01/31/23 Mg 10/05/22 For further refills, pt needs an ov and to complete labs. Letter mailed to pt. documented in this encounter Plan of Treatment Upcoming Encounters Date Type Department Care Team (Late st Contact Info) Description 03/04/2025 12:45 PM EDT Clinical Support [facility] Cardiac Rehab [address] [place] [address] 03/06/2025 12:45 PM EDT Clinical Support [facility] Cardiac Rehab [address] [place] [address] 03/07/2025 12:45 PM EDT Clinical Support [facility] Card[facility] Rehab [address] [place] [address] 03/11/2025 12:45 PM EDT Clinical Support [facility] Cardiac Rehab [address] [place] [address] 03/11/2025 2:45 PM EDT Office Visit [facility] Vascular [place] [address] Yamilka Walsh, DO [address] [facility] [address] [place] [address] 03/13/2025 12:45 PM EDT Clinical Support [facility] Cardiac Rehab [address] [place] [address] 03/14/2025 12:45 PM EDT Clinical Support [facility] Cardiac Rehab [address] [place] [address] 03/18/2025 12:45 PM EDT Clinical Support [facility] Cardiac Rehab [address] [place] [address] 03/20/2025 12:45 PM EDT Clinical Support [facility] Cardiac Rehab [address] [place] [address] 03/21/2025 12:45 PM EDT Clinical Support [facility] Cardiac Rehab [address] [place] [address] 03/25/2025 12:45 PM EDT Clinical Support [facility] Cardiac Rehab [address] [place] [address] 03/26/2025 1:15 PM EDT Office Visit [facility] Obstetrics/Gynecology [address] [facility] [address] Tasha Moore MD [address] [address] 03/27/2025 12:45 PM EDT Clinical Support [facility] Cardiac Rehab [address] [place] [address] 03/28/2025 12:45 PM EDT Clinical Support [facility] Cardiac Rehab [address] [place] [address] 04/01/2025 12:45 PM EDT Clinical Support [facility] Cardiac Rehab [address] [place] [address] documented as of this encounter Visit Diagnoses Diagnosis Atherosclerosis of [place] coronary artery of [place] heart without angina pectoris- Primary documented in this encounter Additional Health Concerns Assessment Noted Time PHQ-9 Depression Total Score: 0 10/28/19 22 9:42 AM EST documented as of this encounter Care Teams Director Of Business Services Relationship Specialty Start Date End Date Lazara Hernandez APRN-ZEUS [address] [place] [address] PCP - General Nurse Practitioner 06/11/24 documented as of this encounter
--- OUTSIDE RECORDS SUMMARY | 2025-03-01 09:47 | XMS_ITS | Clinical Summary ---
Author Organization [facility] Address [address] [place] [address] Care Team Providers Care Exercise Rider Name Role Phone Lazara Hernandez APRN - CCIE Primary Care Pro vider Allergies Active Allergy Reactions Criticality Noted Date Comments Ticagrelor Shortness Of Breath High 10/30/2024 Medications ezetimibe (ZETIA) 10 MG tablet Take 1 tablet by mouth daily Active acetaminophen (TYLENOL) 325 MG tablet Take 2 tablets by mouth every 6 hours as needed for Pain Active magnesium oxide (MAG-OX) 400 (240 Mg) MG tablet Take 1 tablet by mouth daily Active nitroGLYCERIN (NITROSTAT) 0.[address] 1 tablet under the tongue every 5 minutes as needed for Chest pain up to max of 3 total doses. If no relief after 1 dose, call 911. 25 tablet 3 11/02/19 25 Active metoprolol succinate (TOPROL XL) 25 MG extended release tablet Take 0.5 tablets by mouth at bedtime 30 tablet 3 11/03/19 25 Active spironolactone (ALDACTONE) 25 MG tablet Take 0.5 tablets by mouth daily 30 tablet 3 11/03/19 25 Active nicotine (NICODERM CQ) 21 MG/24HR Place 1 patch onto the skin daily 30 patch 3 11/03/19 25 Active Additional Information Patient not taking.Reported on 12/31/2024 albuterol sulfate HFA (PROVENTIL;PRO TOLIN;PROAIR) 108 (90 Base) MCG/ACT inhaler 10/23/19 25 Active BREZTRI AEROSPHERE 160-9-4.8 MCG/ACT AERO 10/24/19 25 Active vitamin D (CHOLECALCIFER OL) 50 MCG (1999) CAPS capsule Every Day 04/17/20 24 Active cilostazol (PLETAL) 50 MG tablet Take 1 tablet by mouth 2 times daily Active atorvastatin (LIPITOR) 80 MG tablet Take 1 tablet by mouth daily 90 tablet 3 11/26/19 25 Active metFORMIN (GLUCOPHAGE-XR ) 500 MG extended release tablet Take 1 tablet by mouth daily (with breakfast) 30 tablet 3 01/04/20 25 Active ondansetron (ZOFRAN) 4 MG tablet Take 1 tablet by mouth every 6 hours as needed for Nausea or Vomiting 10 tablet 01/02/20 25 Active midodrine (PROAMATINE) 10 MG tablet Take 0.5 tablets by mouth 3 times daily (with meals) 90 tablet 3 01/23/20 25 Active aspirin (ASPIRIN LOW DOSE) 81 MG chewable tablet CHEW 1 TABLET BY MOUTH DAILY 90 tablet 3 02/16/20 25 Active clopidogrel (PLAVIX) 75 MG tablet TAKE 1 TABLET BY MOUTH DAILY 90 tablet 3 02/16/20 25 Active pantoprazole (PROTONIX) 40 MG tablet TAKE 1 TABLET BY MOUTH EVERY MORNING BEFORE BREAKFAST 90 tablet 3 02/16/20 25 Active empagliflozin (JARDIANCE) 10 MG tablet TAKE 1 TABLET BY MOUTH DAILY 90 tablet 3 02/16/20 25 Active aspirin 81 MG chewable tablet Take 1 tablet by mouth daily 30 tablet 3 11/03/19 25 025 Discontinued empagliflozin (JARDIANCE) 10 MG tablet Take 1 tablet by mouth daily 30 tablet 3 11/03/19 25 025 Discontinued clopidogrel (PLAVIX) 75 MG tablet Take 1 tablet by mouth daily 30 tablet 3 11/03/19 25 025 Discontinued pantoprazole (PROTONIX) 40 MG tablet Take 1 tablet by mouth every morning (before breakfast) 30 tablet 3 11/03/19 25 025 Discontinued Active Problems Problem Noted Date Diagnosed Date CAD S/P percutaneous coronary angioplasty 2024 Coronary artery disease with angina pectoris 12/2024 Smoker 11/01/2024 Primary hypertension 11/01/[address] elevation myocardia l infarction (STEMI) due to occlusion of proximal portion of left anterior descending (LAD) coronary artery 10/30/2024 Ischemic cardiomyopathy 10/30/2024 STEMI (ST elevation myocardial infarction) 10/29 Encounters Date Type Department Care Team Description 02/14/2025 Refill [place] [facility] [place] [address], [address] [place] [address] Monica Ambriz APRN - CCIE Medication Refill 01/25/2025 7:50 AM EDT - 01/25/2025 11:59 PM EDT Hospital Encounter [facility] [address] [phone] Discharge Disposition: Home or Self Care 01/22/2025 2:30 PM EDT Office Visit [place] [facility] [place] [address], [address] [place] [address] Monica Ambriz APRN - JEET CAD S/P percutaneous coronary angioplasty (Primary Dx); Cardiomyopathy, unspecified type (HCC); Ischemic cardiomyopathy; Coronary artery disease due to calcified coronary lesion; Hyperlipidemia LDL goal <55; Chronic systolic CHF (congestive heart failure) (HCC) 01/10/2025 10:26 AM EDT - 01/10/2025 2:18 PM EDT Emergency [facility] Emergency Department [address] [place] [id number] Sushma Sher MD Fall, initial encounter (Primary Dx) Discharge Disposition: Home or Self Care 01/10/2025 Travel 01/10/2025 Telephone [place] [facility] [place] [address], [address] [place] [address] Monica Ambriz POLYGRAPH TECHNICIAN - CCIE Advice Only; Fall; Post-op Problem 12/31/2024 10:00 AM EDT - 12/31/2024 11:00 AM EDT Surgery [facility] Cardiac Cath/EP Lab [address] [place] [id number] Raimundo Strauss MD ali / rota 12/31/2024 8:30 AM EDT - 01/01/2025 5:11 PM EDT Hospital Encounter [facility] 2- Stepdown [address] [place] [id number] Raimundo Strauss MD Status post coronary artery stent placement (Primary Dx); Coronary artery disease with angina pectoris, unspecified vessel or lesion type, unspecified whether [place] or transplanted heart Discharge Disposition: Home or Self Care 12/31/2024 Travel 12/03/2024 11:45 AM EST - 12/03/2024 12:45 PM EST Surgery [facility] Cardiac Cath/EP Lab [address] [place] [id number] Raimundo Strauss MD ali / Percutaneous coronary intervention 12/03/2024 8:22 AM EST - 12/03/2024 6:00 PM EST Hospital Encounter [facility] Cardiac Cath/EP Lab [address] [place] [address] [id number] elevation myocardial infarction involving left anterior descending (LAD) coronary artery (HCC) (Primary Dx); Coronary artery disease with angina pectoris, unspecified vessel or lesion type, unspecified whether [place] or transplanted heart Discharge Disposition: Home or Self Care 12/03/2024 Telephone [place] [facility] - [place] [address] [place] [address], [address] [phone] Raimundo Strauss MD Surgery Scheduling from Last 3 Months Family History Medical History Relation Name Comments Coronary Art Dis Brother Coronary Art Dis Father Coronary Art Dis Mother Cancer Sister 1 Relation Name Status Comments Brother Father Mother Sister 1 Alive Sister 2 Alive Social History Tobacco Use Types Packs/Day Years Used Date Smoking Tobacco: Former Cigarettes Q uit: 1980 Passive Smoke Exposure: Current Smokeless Tobacco: Never Comments:Just quit 2024 Alcohol Use Standard Drinks/Week Comments Defer 0 (1 standard drink = 0.6 oz pur e alcohol) [facility] Utilities Answer Date Recorded In the past 12 months has [employer], gas, oil, or water [employer] threatened to shut off services in your [...] any time in the past 12 m [facility], were you homeless or living in a group home (including now)? No 12/31/2024 Food Insecurity [...] Orientation Straight 11/26/2024 8: 49 AM EST Last Filed Vital Signs Vital Sign Reading Time Taken Comments Blood Pressure 98/66 01/22/2025 2:41 PM EDT Pulse 65 01/22/2025 2:41 PM EDT Temperature 36.9 C (98.5 F) 01/10/2025 10:25 AM EDT Simultaneous filing. User may not have seen previous data. Respiratory Rate 16 01/22/2025 2:41 PM EDT Oxygen Saturation 95% 01/22/2025 2:4 1 PM EDT Inhaled Oxygen Concentration - - Weight 51.3 kg (113 lb) 01/22/2025 2:41 PM EDT Height 152.4 cm (5') 01/22/2025 2:41 PM EDT Body Mass Index 22.07 01/22/2025 2:41 PM EDT Plan of Treatment Upcoming Encounters Date Type Department Care Team (Late st Contact Info) Description 04/30/2025 2:00 PM EDT Office Visit [place] [facility] - [place] [address], [address] [place] [address] Monica Ambriz APRN - [facility] [address] [place] [address] 3 mo fu Health Maintenance Due Date Last Done Comments Depression Screen 1962 Hepatitis C screen 1968 DTaP/Tdap/Td vaccine (1 - Tdap) 1969 Colonoscopy 1995 Colorectal Cancer Screen 1995 FIT/FOBT: Average risk 1995 Fecal-DNA (Cologuard): Average risk 1995 Sigmoidoscopy/CT colonography 1995 DEXA (modify frequency per FRAX score) 2005 Respiratory Syncytial Virus (RSV) or age 60 yrs+ (1 - Risk 60-74 years 1-dose series) 2010 Breast cancer screen 11/23/2021 11/23/2019, 02/16/2018, 12/23/2017 Annual Wellness Visit (Medicare) 10/30/2024 COVID-19 Vaccine ( season) 2024 06/20/2024, 07/19/2023, 01/09/2021, Additional history exists Flu vaccine (Season Ended) 05/03/202507/18, 12/31/2022, 06/26/2016, Additional history exists A1C test (Diabetic or Prediabetic) 10/30/2025 10/30/2024 Lipids 10/31/2025 10/31/2024 GFR test (Diabetes, CKD 3-4, OR last GFR 15-59) 01/10/2026 01/10/2025, 01/01/2025, 11/02/2024, Additional history exists Shingles vaccine Completed 05/16/2023, 01/31/2023 Pneumococcal 50+ years Vaccine Completed 06/20/2024, 02/08/2024, 09/10/2015 Hepatitis A vaccine Aged Out No longe r eligible based on patient's age to complete this topic Hepatitis B vaccine Aged Out No longe r eligible based on patient's age to complete this topic Hib vaccine Aged Out No longer eligi ble based on patient's age to complete this topic Meningococcal (ACWY) vaccine Aged Out No longer eligible based on patient's age to complete this topic Meningococcal B vaccine Aged Out No l onger eligible based on patient's age to complete this topic Polio vaccine Aged Out No longer elig ible based on patient's age to complete this topic Medical Devices Implanted Type Area Industrial Chemistry Teacher Device Identifier Shelf Expiration Date Model / Serial / Lot Stent Coronary [place] Rx 4x18 Mm Zotarolimus Elute - [id number] Implanted:Qty: 1 on 10/29/2024 at [facility] Coronary stents [employer]WD [id number] 07/26/2027 [id number] / / [id number] Stent Coronary [place] Rx 4x30 Mm Zotarolimus Elut - [id number] Implanted:Qty: 1 on 10/29/2024 by Raimundo Strauss MD at [facility] Coronary stents [employer]WD [id number] 06/13/2027 [id number] / / [id number] Stent Coronary [place] Rx 3.5x8 Mm Zotarolimus Elut - [id number] Implanted:Qty: 1 on 10/29/2024 by Raimundo Strauss MD at [facility] Coronary stents [employer]WD [id number] 08/02/2027 [id number] / / [id number] Stent Coronary [place] Rx 3.5x34 Mm Zotarolimus [place] - [id number] Implanted:Qty: 1 on 12/31/2024 by Raimundo Strauss MD at [facility] Coronary stents N/A: Coronary [employer]-WD [id number] 10/30/2027 [id number] / / [id number] Stent Coronary [place] Rx 4x15 Mm Zotarolimus [place] - [id number] Implanted:Qty: 1 on 12/31/2024 by Raimundo Strauss MD at [facility] Coronary stents N/A: Coronary [employer]WD [id number] 11/01/2027 [id number] / / [id number] Stent Coronary [place] Rx 3x12 Mm Zotarolimus Elut - [id number] Implanted:Qty: 1 on 12/31/2024 by Raimundo Strauss MD at [facility] Coronary stents N/A: Coronary [employer]WD [id number] 03/14/2027 [id number] / / [id number] Stent Coronary [place] Rx 4x8 Mm Zotarolimus [place] - [id number] Implanted:Qty: 1 on 12/31/2024 by Raimundo Strauss MD at [facility] Coronary stents N/A: Coronary [employer]WD [id number] 06/22/2025 [id number] / / [id number] Explanted Type Area Industrial Chemistry Teacher Device Identifier Shelf Expiration Date Model / Serial / Lot Cable Pace 12 Ft Lidiaspro De [place] W/ Pac Loc Safety Dev Strl - [id number] Explanted:Qty : 1 on 12/31/2024 at [facility] Cardiac Lead [employer]- [id number] / / [id number] Procedures Procedure Name Priority Date/Time Associated Diagnosis Comments TROPONIN Stat Sunquest Label print 01/10/2025 1:[address] HEAD WO CONTRAST STAT 01/10/2025 1 1:57 AM EDT TROPONIN STAT 01/10/2025 11:55 AM EDT PREVIOUS SPECIMEN STAT 01/10/2025 11: 55 AM EDT BASIC METABOLIC PANEL STAT 01/10/2025 11:55 AM EDT EKG 12-LEAD STAT 01/10/2025 11:19 AM EDT XR FEMUR RIGHT (MIN 2 VIEWS) STAT 01/10/2025 11:15 AM EDT CBC WITH AUTO DIFFERENTIAL Stat Sunquest Label print 01/10/2025 11:06 AM EDT BASIC METABOLIC PANEL Routine 01/01/2025 4:47 AM EDT CBC Routine 01/01/2025 4:47 AM EDT ACTIVATED CLOTTING TIME Routine 12/31/2024 3:37 PM EDT ACTIVATED CLOTTING TIME Routine 12/31/2024 2:15 PM EDT CARDIAC PROCEDURE Routine 12/31/2024 12: 14 PM EDT Coronary artery disease with angina pectoris, unspecified vessel or lesion type, unspecified whether [place] or transplanted heart CARDIAC PROCEDURE Routine 12/31/2024 12: 14 PM EDT Coronary artery disease with angina pectoris, unspecified vessel or lesion type, unspecified whether [place] or transplanted heart CARDIAC PROCEDURE Routine 12/31/2024 12: 14 PM EDT Coronary artery disease with angina pectoris, unspecified vessel or lesion type, unspecified whether [place] or transplanted heart CARDIAC PROCEDURE Routine 12/31/2024 12: 14 PM EDT Coronary artery disease with angina pectoris, unspecified vessel or lesion type, unspecified whether [place] or transplanted heart CARDIAC PROCEDURE Routine 12/31/2024 12: 14 PM EDT Coronary artery disease with angina pectoris, unspecified vessel or lesion type, unspecified whether [place] or transplanted heart ACTIVATED CLOTTING TIME Routine 12/31/2024 11:19 AM EDT ACTIVATED CLOTTING TIME Routine 12/31/2024 10:57 AM EDT PLATELET COUNT Stat Sunquest Label print 12/31/2024 9:57 AM EDT POCT GLUCOSE Routine 12/31/2024 9:49 AM EDT UREA N (POC) Routine 12/31/2024 9:49 AM EDT CREATININE W/GFR POINT OF CARE Routine 12/31/2024 9:49 AM EDT CHLORIDE (POC) Routine 12/31/2024 9:49 AM EDT POTASSIUM (POC) Routine 12/31/2024 9:49 AM EDT SODIUM (POC) Routine 12/31/2024 9:49 AM EDT HGB/HCT Routine 12/31/2024 9:49 AM EDT CARDIAC PROCEDURE Routine 12/03/2024 1:1 3 PM EST Coronary artery disease with angina pectoris, unspecified vessel or lesion type, unspecified whether [place] or transplanted heart PLATELET COUNT Stat Sunquest Label print 12/03/2024 9:12 AM EST POCT GLUCOSE Routine 12/03/2024 8:58 AM EST UREA N (POC) Routine 12/03/2024 8:58 AM EST CREATININE W/GFR POINT OF CARE Routine 12/03/2024 8:58 AM EST CHLORIDE (POC) Routine 12/03/2024 8:58 AM EST POTASSIUM (POC) Routine 12/03/2024 8:58 AM EST SODIUM (POC) Routine 12/03/2024 8:58 AM EST HGB/HCT Routine 12/03/2024 8:58 AM EST LIPID PANEL Routine 10/31/2024 3:51 AM EST HEMOGLOBIN A1C Routine 10/30/2024 2:58 AM EST from Last 3 Months or Most Recently Relevant to Health Maintenance Results * (ABNORMAL) Troponin (01/10/2025 1:13 PM EDT) Only the most recent of2 resultswithin the time period is included. Troponin, High Sensitivity 37(H) 0 - 14 ng/L 01/10/2025 1:13 PM EDT [facility] Comment:High Sensitivity Tro ponin values cannot be compared with other Troponin methodologies. Blood BLOOD SPECIMEN / Unknown 01/10/2025 1:13 PM EDT 01/10/2025 1:18 PM EDT us Sushma Sher MD CHEMISTRY ORDERABLES Final Res ult [facility] [address] [place] [address] * CT HEAD WO CONTRAST (01/10/2025 11:57 AM EDT) Anatomical Region Laterality Modality Head Computed Tomogra phy 01/10/2025 12:3 7 PM EDT Impressions 01/10/2025 12:40 PM EDT No acute intracranial abnormality. Narrative 01/10/2025 12:40 PM EDT EXAMINATION: CT OF THE HEAD WITHOUT CONTRAST 01/10/2025 11:41 am TECHNIQUE: CT of the head was performed without the administration of intravenous contrast. Automated exposure control, iterative reconstruction, and/or weight based adjustment of the mA/kV was utilized to reduce the radiation dose to as low as reasonably achievable. COMPARISON: None. HISTORY: ORDERING SYSTEM PROVIDED HISTORY: fall TECHNOLOGIST PROVIDED HISTORY: [facility] Decision Support Exception - unselect if not a suspected or confirmed emergency medical condition->Emergency Medical Condition (MA) FINDINGS: BRAIN/VENTRICLES: There is no acute intracranial hemorrhage, mass effect or midline shift. No abnormal extra-axial fluid collection. The lacy-white differentiation is maintained without evidence of an acute infarct. There is no evidence of hydrocephalus. ORBITS: The visualized portion of the orbits demonstrate no acute abnormality. SINUSES: The visualized paranasal sinuses and mastoid air cells demonstrate no acute abnormality. SOFT TISSUES/SKULL: No acute abnormality of the visualized skull or soft tissues. Procedure Note Teddy Miller MD - 01/10/2025 EXAMINATION: CT OF THE HEAD WITHOUT CONTRAST 01/10/2025 11:41 am TECHNIQUE: CT of the head was performed without the administration of intravenous contrast. Automated exposure control, iterative reconstruction, and/orweight based adjustment of the mA/kV was utilized to reduce the radiation dose toas low as reasonably achievable. COMPARISON: None. HISTORY: ORDERING SYSTEM PROVIDED HISTORY: [facility] TECHNOLOGIST PROVIDED HISTORY: [facility] Decision Support Exception - unselect if not a suspected or confirmed emergency medical condition->Emergency Medical Condition (MA) FINDINGS: BRAIN/VENTRICLES: There is no acute intracranial hemorrhage, mass effector midline shift. No abnormal extra-axial fluid collection. Thegray-white differentiation is maintained without evidence of an acute infarct. Thereis no evidence of hydrocephalus. ORBITS: The visualized portion of the orbits demonstrate no acuteabnormality. SINUSES: The visualized paranasal sinuses and mastoid air cellsdemonstrate no acute abnormality. SOFT TISSUES/SKULL: No acute abnormality of the visualized skull orsoft tissues. IMPRESSION: No acute intracranial abnormality. Scotty Owen MD IMG CT ORDERABLES Final Result * PREVIOUS SPECIMEN (01/10/2025 11:55 AM EDT) 01/10/2025 11:5 5 AM EDT 01/10/2025 12:00 PM EDT us Sushma Sher MD CHEMISTRY ORDERABLES Final Res ult [facility] [address] [place] [address], [facility] [phone] * (ABNORMAL) Basic Metabolic Panel (01/10/2025 11:55 AM EDT) Only the most recent of2 resultswithin the time period is included. Sodium 139 136 - 145 mmol/L 01/10/2025 11:55 AM EDT [facility] Potassium 4.6 3.7 - 5.3 mmol/L 01/10/2025 11:55 AM EDT [facility] Chloride 104 98 - 107 mmol/L 01/10/2025 11:55 AM EDT [facility] CO2 24 20 - 31 mmol/L 01/10/2025 11:55 AM EDT [facility] Anion Gap 11 9 - 16 mmol/L 01/10/2025 11:55 AM EDT [facility] Glucose 94 74 - 99 mg/dL 01/10/2025 11:55 AM EDT [facility] BUN 17 8 - 23 mg/dL 01/10/2025 11:55 AM EDT [facility] Creatinine 1.0(H) 0.6 - 0.9 mg/dL 01/10/2025 11:55 AM EDT [facility] Est, Glom Filt Rate 59(L) >60 mL/min/1. 73m2 01/10/2025 11:55 AM EDT [facility] Comment: These results are not intended for use in patients <18 years of age. eGFR results are calculated without a race factor using the 2020 CKD-EPI equation. Careful clinical correlation is recommended, particularly when comparing to results calculated using previous equations. The CKD-EPI equation is less accurate in patients with extremes of muscle mass, extra-renal metabolism of creatine, excessive creatine ingestion, or following therapy that affects renal tubular secretion. Calcium 9.9 8.6 - 10.4 mg/dL 01/10/2025 11:55 AM EDT [facility] 01/10/2025 11:5 5 AM EDT 01/10/2025 12:00 PM EDT us Sushma Sher MD CHEMISTRY ORDERABLES Final Res ult [facility] [address] [place] [address], [facility] [phone] * EKG 12 Lead (01/10/2025 11:19 AM EDT) Ventricular Rate 68 BPM [facility] Atrial Rate 68 BPM [facility] P-R Interval 180 ms [facility] QRS Duration 88 ms [facility] Q-T Interval 438 ms [facility] QTc Calculation (Bazett) 465 ms [facility] P [place] 69 degrees [facility] R [place] -73 degrees [facility] T [place] 83 degrees [facility] 01/10/2025 11:1 9 AM EDT Narrative PN ST[facility] MUSE - 01/11/2025 8:32 AM EDT Normal sinus rhythm Left anterior fascicular block Anteroseptal infarct (cited on or before 29-OCT-2024) T wave abnormality, consider lateral ischemia Abnormal ECG When compared with ECG of 30-OCT-2024 11:08, T wave inversion more evident in Anterior leads Procedure Note Stuart De Leon MD - 01/11/2025 Normal sinus rhythm Left anterior fascicular block Anteroseptal infarct (cited on or before 29-OCT-2024) T wave abnormality, consider lateral ischemia Abnormal ECG When compared with ECG of 30-OCT-2024 11:08, T wave inversion more evident in Anterior leads Scotty Owen MD ECG ORDERABLES Final Result Performing Organization Address [facility]/ZIP Co de Phone Number [facility] * XR FEMUR RIGHT (MIN 2 VIEWS) (01/10/2025 11:15 AM EDT) Anatomical Region Laterality Modality Hip, Thigh, Knee Computed Radiog marita 01/10/2025 11:3 5 AM EDT Impressions 01/10/2025 11:36 AM EDT No acute fracture or dislocation of the right femur. Narrative 01/10/2025 11:36 AM EDT EXAMINATION: 2 XRAY VIEWS OF THE RIGHT FEMUR 01/10/2025 11:16 am COMPARISON: None. HISTORY: ORDERING SYSTEM PROVIDED HISTORY: fall TECHNOLOGIST PROVIDED HISTORY: fall Reason for Exam: pt fell today in her kitchen, had prev cath to rt side, bruising, checking to make sure no bony injury rt femur, just bruising from the cath FINDINGS: The femur appears unremarkable, with no evidence for any fractures, lytic lesions, blastic lesions or periosteal reactions. The hip joint and the knee joint appear normal. Soft tissues appear unremarkable. Procedure Note Lew Saucedo MD - 01/10/2025 EXAMINATION: 2 XRAY VIEWS OF THE RIGHT FEMUR 01/10/2025 11:16 am COMPARISON: None. HISTORY: ORDERING SYSTEM PROVIDED HISTORY: fall TECHNOLOGIST PROVIDED HISTORY: fall Reason for Exam: pt fell today in her kitchen, had prev cath to rt side, bruising, checking to make sure no bony injury rt femur, just bruisingfrom the cath FINDINGS: The femur appears unremarkable, with no evidence for any fractures,lytic lesions, blastic lesions or periosteal reactions. The hip joint and theknee joint appear normal. Soft tissues appear unremarkable. IMPRESSION: No acute fracture or dislocation of the right femur. Scotty Owen MD IM DIAGNOSTIC IMAGING ORDERABLE S Final Result * (ABNORMAL) CBC with Auto Differential (01/10/2025 11:06 AM EDT) Pathologist [facility] WBC 7.9 3.5 - 11.3 k/uL 01/10/2025 11:06 AM EDT [facility] RBC 4.96 3.95 - 5.11 m/uL 01/10/2025 11:06 AM EDT [facility] Hemoglobin 14.5 11.9 - 15.1 g/dL 01/10/2025 11:06 AM EDT [facility] Hematocrit 45.2 36.3 - 47.1 % 01/10/2025 11:06 AM EDT [facility] MCV 91.1 82.6 - 102.9 fL 01/10/2025 11:06 AM EDT [facility] MCH 29.2 25.2 - 33.5 pg 01/10/2025 11:06 AM EDT [facility] MCHC 32.1 28.4 - 34.8 g/dL 01/10/2025 11:06 AM EDT [facility] RDW 13.2 11.8 - 14.4 % 01/10/2025 11:06 AM EDT [facility] Platelets 243 138 - 453 k/uL 01/10/2025 11:06 AM EDT [facility] MPV 10.5 8.1 - 13.5 fL 01/10/2025 11:06 AM EDT [facility] NRBC Automated 0.0 0.0 per 100 WBC 01/10/2025 11:06 AM EDT [facility] Neutrophils % 73(H) 36 - 65 % 01/10/2025 11:06 AM EDT [facility] Lymphocytes % 15(L) 24 - 43 % 01/10/2025 11:06 AM EDT [facility] Monocytes % 8 3 - 12 % 01/10/2025 11:06 AM EDT [facility] Eosinophils % 3 1 - 4 % 01/10/2025 11:06 AM EDT [facility] Basophils % 1 0 - 2 % 01/10/2025 11:06 AM EDT [facility] Immature Granulocytes % 0 0 % 01/10/2025 11:06 AM EDT [facility] Neutrophils Absolute 5.72 1.50 - 8.10 k/uL 01/10/2025 11:06 AM EDT [facility] Lymphocytes Absolute 1.21 1.10 - 3.70 k/uL 01/10/2025 11:06 AM EDT [facility] Monocytes Absolute 0.62 0.10 - 1.20 k/uL 01/10/2025 11:06 AM EDT [facility] Eosinophils Absolute 0.22 0.00 - 0.44 k/uL 01/10/2025 11:06 AM EDT [facility] Basophils Absolute 0.07 0.00 - 0.20 k/uL 01/10/2025 11:06 AM EDT [facility] Immature Granulocytes Absolute <0.03 0.00 - 0.30 k/uL 01/10/2025 11:06 AM [facility] Blood BLOOD SPECIMEN / Unknown 01/10/2025 11:06 AM EDT 01/10/2025 11:11 AM EDT Scotty Owen MD HEMATOLOGY ORDERABLES Final Resu lt [facility] [address] [place] [address], [facility] [phone] * CBC (01/01/2025 4:47 AM EDT) WBC 9.0 3.5 - 11.3 k/uL 01/01/2025 4:47 AM EDT [facility] RBC 4.60 3.95 - 5.11 m/uL 01/01/2025 4:47 AM EDT [facility] Hemoglobin 13.5 11.9 - 15.1 g/dL 01/01/2025 4:47 AM EDT [facility] Hematocrit 42.5 36.3 - 47.1 % 01/01/2025 4:47 AM EDT [facility] MCV 92.4 82.6 - 102.9 fL 01/01/2025 4:47 AM EDT [facility] MCH 29.3 25.2 - 33.5 pg 01/01/2025 4:47 AM EDT [facility] MCHC 31.8 28.4 - 34.8 g/dL 01/01/2025 4:47 AM EDT [facility] RDW 13.3 11.8 - 14.4 % 01/01/2025 4:47 AM EDT [facility] Platelets 182 138 - 453 k/uL 01/01/2025 4:47 AM EDT [facility] MPV 10.7 8.1 - 13.5 fL 01/01/2025 4:47 AM EDT [facility] NRBC Automated 0.0 0.0 per 100 WBC 01/01/2025 4:47 AM EDT [facility] Blood BLOOD SPECIMEN / Unknown 01/01/2025 4:47 AM EDT 01/01/2025 5:06 AM EDT Devin Malhotra MD HEMATOLOGY ORDERABLES Final Resu lt Performing Organization Address [facility]/ZIP Co de Phone Number [facility] [employer] [address] [place] [address], [facility] [phone] * (ABNORMAL) Activated clotting time (12/31/2024 3:37 PM EDT) Only the most recent of4 resultswithin the time period is included. Activated Clotting Time 166(H) 79 - 149 sec 12/31/2024 3:37 PM EDT [facility] [employer] 12/31/2024 3:37 PM EDT 12/31/2024 3:41 PM EDT Raimundo Strauss MD HEMATOLOGY ORDERABLES Final R esult Performing Organization Address [facility] Co de Phone Number [facility] [address] [place] [address], [facility] [phone] * PERCUTANEOUS CORONARY INTERVENTION, INSERT TEMPORARY PACEMAKER, ULTRASOUND GUIDED VASCULAR ACCESS, INTRAVASCULAR ULTRASOUND, INTRAVASCULAR LITHOTRIPSY (12/31/2024 12:14 PM EDT) Only the most recent of2 resultswithin the time period is included. Pathologist [facility] [place] Body Surface Area 1.45 m2 [facility] CV CPACS HEMO Anatomical Region Laterality Modality X-Ray Angiograph y Narrative 12/31/2024 12:29 PM EDT Ultrasound-guided right common femoral venous 6 Filipino venous access and right common femoral arterial 7 Filipino access. Successful placement of 5 Filipino temporary pacemaker catheter near RV apex. Successful rotational atherectomy of proximal and mid RCA using 1.25 mm gil. Unable to pass IVUS catheter. Successful shockwave lithotripsy of proximal and mid RCA. IVUS evaluation of proximal to mid RCA for stent sizing. Successful PTCA/EUNICE of mid and proximal RCA. Additional stent was deployed at the distal edge of mid RCA stent due to haziness. Additional stent was deployed at the ostial RCA due to haziness/type a dissection. Final angiogram revealed preemie 3 flow with excellent results. Coronary Findings Diagnostic Dominance: Right Right Coronary Artery: Ost RCA lesion, 85% stenosed. Lesion is the culprit lesion. The lesion is type B2. The lesion is moderately calcified. The lesion was not previously treated. The stenosis was measured by a visual reading. The pre-interventional distal flow is normal (TANISHA 3).. Prox RCA lesion, 99% stenosed. Lesion is the culprit lesion. The lesion is type C and irregular. The lesion is severely calcified. The lesion was not previously treated. The stenosis was measured by a visual reading. The pre-interventional distal flow is normal (TANISHA 3).. Mid RCA lesion, 80% stenosed. The lesion is type C, irregular and hazy. The lesion is severely calcified. The lesion was not previously treated. The stenosis was measured by a visual reading. The pre-interventional distal flow is normal (TANISHA 3).. Intervention Ost RCA lesion: Stent: A single stent was placed. Drug-eluting stent was successfully placed. The strut is well apposed. Supplies Used: STENT CORONARY PO FRONTIER RX 4X8 MM ZOTAROLIMUS ELUTE Post-Intervention Lesion Assessment: The intervention was successful. The guidewire crossed the lesion. Device was deployed. The pre-interventional distal flow is normal (TANISHA 3). Post-intervention TANISHA flow is 3. Lesion had 8 mm of its length treated. There were no complications. There is a 0% residual stenosis post intervention. Prox RCA lesion: Atherectomy: Pass #: 1; RPM: 155; Duration: 30 seconds. Gil size was 1.25 mm. Supplies Used: DEVICE ATHRCTMY 1.25MM ROTAPRO ADVANCING PRE CONN BUR Atherectomy (Also treats lesions: Mid RCA): Rotational atherectomy was performed. Pass #: 2; RPM: 155; Duration: 14 seconds. Brussels size was 1.25 mm. Angioplasty: Angioplasty using a standard balloon was performed prior to stent deployment. Lesion complication(s): no complications. Supplies Used: CATH BLLN ANGIO 2.95R59ZA SC EUPHORA RX Angioplasty: Angioplasty using a standard balloon was performed prior to stent deployment. Lesion complication(s): no complications. Supplies Used: CATH BLLN ANGIO 2.29Y45SF SC EUPHORA RX Intravascular Lithotripsy (Also treats lesions: Mid RCA): IVL cycles: 7. IVL total pulses delivered: 70. 6atm for 14 seconds 6atm for 20 seconds 6atm for 15 seconds 6atm for 20 seconds 6atm for 20 seconds 6atm for 20 seconds 6atm for 16 seconds Supplies Used: CATHETER IVL C2PLUS SHOCKWAVE 2.5MM X 12MM Intravascular Lithotripsy (Also treats lesions: Mid RCA): Removed Supplies Used: CATHETER IVL C2PLUS SHOCKWAVE 2.5MM X 12MM Angioplasty (Also treats lesions: Mid RCA): Angioplasty using a standard balloon was performed prior to stent deployment. Lesion complication(s): no complications. Supplies Used: CATH BLLN ANGIO 3X30MM SC EUPHORA RX Angioplasty (Also treats lesions: Mid RCA): Angioplasty using a standard balloon was performed prior to stent deployment. Lesion complication(s): no complications. Supplies Used: CATH BLLN ANGIO 3X30MM SC EUPHORA RX Stent: Drug-eluting stent was not successfully placed. Supplies Used: STENT CORONARY PO FRONTIER RX 4X12 MM ZOTAROLIMUS ELUT Stent: Drug-eluting stent was successfully placed. The strut is well apposed. Supplies Used: STENT CORONARY PO FRONTIER RX 4X15 MM ZOTAROLIMUS ELUTE Stent: A single stent was placed. Drug-eluting stent was successfully placed. The strut is well apposed. Supplies Used: STENT CORONARY PO FRONTIER RX 4X15 MM ZOTAROLIMUS ELUTE Post-Intervention Lesion Assessment: The intervention was successful. The guidewire crossed the lesion. Device was deployed. The pre-interventional distal flow is normal (TANISHA 3). Post-intervention TANISHA flow is 3. Lesion had 15 mm of its length treated. There were no complications. There is a 0% residual stenosis post intervention. Mid RCA lesion: Atherectomy (Also treats lesions: Prox RCA): Rotational atherectomy was performed. Pass #: 2; RPM: 155; Duration: 14 seconds. Brussels size was 1.25 mm. Intravascular Lithotripsy (Also treats lesions: Prox RCA): IVL cycles: 7. IVL total pulses delivered: 70. 6atm for 14 seconds 6atm for 20 seconds 6atm for 15 seconds 6atm for 20 seconds 6atm for 20 seconds 6atm for 20 seconds 6atm for 16 seconds Supplies Used: CATHETER IVL C2PLUS SHOCKWAVE 2.5MM X 12MM Intravascular Lithotripsy (Also treats lesions: Prox RCA): Removed Supplies Used: CATHETER IVL C2PLUS SHOCKWAVE 2.5MM X 12MM Angioplasty (Also treats lesions: Prox RCA): Angioplasty using a standard balloon was performed prior to stent deployment. Lesion complication(s): no complications. Supplies Used: CATH BLLN ANGIO 3X30MM SC EUPHORA RX Angioplasty (Also treats lesions: Prox RCA): Angioplasty using a standard balloon was performed prior to stent deployment. Lesion complication(s): no complications. Supplies Used: CATH BLLN ANGIO 3X30MM SC EUPHORA RX Stent: A single stent was placed. Drug-eluting stent was successfully placed. The strut is well apposed. Supplies Used: STENT CORONARY PO FRONTIER RX 3.5X34 MM ZOTAROLIMUS ELUTE Stent: A single stent was placed. Drug-eluting stent was not successfully placed. The strut is well apposed. Supplies Used: STENT CORONARY PO FRONTIER RX 3X12 MM ZOTAROLIMUS ELUT Post-Intervention Lesion Assessment: The intervention was successful. The guidewire crossed the lesion. Device was deployed. The pre-interventional distal flow is normal (TANISHA 3). Post-intervention TANISHA flow is 3. Lesion had 34 mm of its length treated. There were no complications. There is a 0% residual stenosis post intervention. Bleeding Risk Calculator Bleeding Risk points = 0. Cath Recommendations Post PCI protocol recommended. Patient management should include: Aggressive risk factor modification, aggressive medical management, cardiac rehabillitation and drug-eluting stent maintenance. Raimundo Strauss MD CV CARDIAC CATH ORDERABLES Fi nal Result * Platelet Count (12/31/2024 9:57 AM EDT) Only the most recent of2 resultswithin the time period is included. Platelets 183 138 - 453 k/uL 12/31/2024 9:57 AM EDT [facility] BLOOD SPECIMEN / Unknown 12/31/2024 9:57 AM EDT 12/31/2024 9:57 AM EDT Raimundo Strauss MD HEMATOLOGY ORDERABLES Final R esult [facility] [address] [place] [address], [facility] [phone] * (ABNORMAL) Creatinine W/GFR Point of Care (12/31/2024 9:49 AM EDT) Only the most recent of2 resultswithin the time period is included. [facility] POC Creatinine 1.0 0.51 - 1.19 mg/dL 12/31/2024 9:49 AM EDT [facility] [employer] eGFR, POC 59(L) >60 mL/min/1. 73m2 12/31/2024 9:49 AM EDT [facility] [employer] Comment: These results are not intended for use in patients <18 years of age. eGFR results are calculated without a race factor using the 2020 CKD-EPI equation. Careful clinical correlation is recommended, particularly when comparing to results calculated using previous equations. The CKD-EPI equation is less accurate in patients with extremes of muscle mass, extra-renal metabolism of creatine, excessive creatine ingestion, or following therapy that affects renal tubular secretion. 12/31/2024 9:49 AM EDT 01/01/2025 8:35 AM EDT Raimundo Strauss MD POINT OF CARE TEST ORDERABLES Final Result Performing Organization Address [facility]/ZIP Co de Phone Number [address] [phone] * CHLORIDE (POC) (12/31/2024 9:49 AM EDT) Only the most recent of2 resultswithin the time period is included. [facility] POC Chloride 106 98 - 107 mmol/L 12/31/2024 9:49 AM EDT [facility] 12/31/2024 9:49 AM EDT 01/01/2025 8:35 AM EDT Raimundo Strauss MD CHEMISTRY ORDERABLES Final Re sult Performing Organization Address [facility]/ZIP Co de Phone Number [address] [phone] * SODIUM (POC) (12/31/2024 9:49 AM EDT) Only the most recent of2 resultswithin the time period is included. [facility] POC Sodium 144 138 - 146 mmol/L 12/31/2024 9:49 AM EDT [facility] 12/31/2024 9:49 AM EDT 01/01/2025 8:35 AM EDT Raimundo Strauss MD CHEMISTRY ORDERABLES Final Re sult Performing Organization Address City/[facility]/ZIP Co de Phone Number [address] [phone] * (ABNORMAL) POTASSIUM (POC) (12/31/2024 9:49 AM EDT) Only the most recent of2 resultswithin the time period is included. POC Potassium 4.7(H) 3.5 - 4.5 mmol/L 12/31/2024 9:49 AM EDT [facility] 12/31/2024 9:49 AM EDT 01/01/2025 8:35 AM EDT Raimundo Strauss MD CHEMISTRY ORDERABLES Final Re sult Performing Organization Address City/[facility]/[place] [address], [facility] [phone] * (ABNORMAL) POCT urea (BUN) (12/31/2024 9:49 AM EDT) Only the most recent of2 resultswithin the time period is included. POC BUN 30(H) 8 - 26 mg/dL 12/31/2024 9:49 AM EDT [facility] 12/31/2024 9:49 AM EDT 01/01/2025 8:35 AM EDT us Raimundo Strauss MD POINT OF CARE TEST ORDERABLES Final Result Performing Organization Address City/[facility]/[place] [address], [facility] [phone] * (ABNORMAL) Hemoglobin and hematocrit, blood (12/31/2024 9:49 AM EDT) Only the most recent of2 resultswithin the time period is included. POC Hemoglobin (calc) 20.8(H) 12.0 - 16.0 g/dL 12/31/2024 9:49 AM EDT [facility] POC Hematocrit 61(H) 36 - 46 % 12/31/2024 9:49 AM EDT [facility] 12/31/2024 9:49 AM EDT 01/01/2025 8:35 AM EDT us Raimundo Strauss MD HEMATOLOGY ORDERABLES Final R esult Performing Organization Address [facility]/ZIP Co de Phone Number [facility] [employer] [address] [place] [address], [facility] [phone] * (ABNORMAL) POCT Glucose (12/31/2024 9:49 AM EDT) Only the most recent of2 resultswithin the time period is included. Pathologist [facility] [place] POC Glucose 110(H) 74 - 100 mg/dL 12/31/2024 9:49 AM EDT [facility] 12/31/2024 9:49 AM EDT 01/01/2025 8:35 AM EDT Raimundo Strauss MD POINT OF CARE TEST ORDERABLES Final Result Performing Organization Address [facility] [place] [address], [facility] [phone] * Lipid Panel (10/31/2024 3:51 AM EST) Cholesterol, Total 116 0 - 199 mg/dL 10/31/2024 3:51 AM EST [facility] Comment: Cholesterol Guidelines: <200 Desirable 200-240 Borderline >240 Undesirable HDL 67 >40 mg/dL 10/31/2024 3:51 AM EST [facility] Comment: HDL Guidelines: <40 Undesirable 40-59 Borderline >59 Desirable LDL Cholesterol 36 0 - 100 mg/dL 10/31/2024 3:51 AM EST [facility] Comment: LDL Guidelines: <100 Desirable 100-129 Near to/above Desirable 130-159 Borderline >159 Undesirable Direct (measured) LDL and calculated LDL are not interchangeable tests. Chol/HDL Ratio 1.7 10/31/2024 3:51 AM EST [facility] Triglycerides 64 <150 mg/dL 10/31/2024 3:51 AM EST [facility] Comment: Triglyceride Guidelines: <150 Desirable 150-199 Borderline 200-499 High >499 Very high Based on AHA Guidelines for fasting triglyceride, July 2012. VLDL 13 1 - 30 mg/dL 10/31/2024 3:51 AM EST [facility] Blood BLOOD SPECIMEN / Unknown 10/31/2024 3:51 AM EST 10/31/2024 4:10 AM EST Devin Malhotra MD CHEMISTRY ORDERABLES Final Resul t Performing Organization Address City/[facility]/ZIP Co de Phone Number [facility] [address] [place] [address], [facility] [phone] * (ABNORMAL) Hemoglobin A1C (10/30/2024 2:58 AM EST) Hemoglobin A1C 6.4(H) 4.0 - 6.0 % 10/30/2024 2:58 AM EST [facility] Estimated Avg Glucose 137 mg/dL 10/30/2024 2:58 AM EST [facility] Comment: The ADA and AACC recommend providing the estimated average glucose result to permit better patient understanding of their HBA1c result. 10/30/2024 2:58 AM EST 10/30/2024 3:03 AM EST Raimundo Strauss MD CHEMISTRY ORDERABLES Final Re sult Performing Organization Address City/[facility]/ZIP Co de Phone Number [facility] [address] [place] [address], [facility] [phone] from Last 3 Months or Most Recently Relevant to Health Maintenance Insurance MEDICARE [employer] MEDICARE [employer] Advance Directives * Full Code (Latest Code Status on File) Date Activated Date Inactivated Comments 12/31/2024 9:18 AM 01/01/2025 7:16 PM * Full Code Date Activated Date Inactivated Comments 12/03/2024 8:43 AM 12/05/2024 9:31 AM * Full Code Date Activated Date Inactivated Comments 10/30/2024 1:41 AM 11/03/2024 6:06 PM Care Teams Exercise Rider Relationship Specialty Start Date End Date Lazara Hernandez APRN - JEET [address] [phone] PCP - General 10/30/24
--- NOTE | 2025-03-01 10:15 | MM_ITS ---
Patient Name: TRAN RAYA MR#: [id number] : 1950 Exam Date: 03/01/2025 Ordering Doctor: ASIM BANGURA WINDSCREEN FITTER-C RADIOLOGY REPORT PROCEDURE: MM TOMOSYNTHESIS SCREENING BI COMPARISON: MM TOMOSYNTHESIS SCREENING BI, 02/29/2024. MG MAMM SCREEN MADDIE W CAD, 11/23/2019. INDICATIONS: SCREENING Calculator Name NCI Breast Cancer Risk Assessment Tool 5 Year Breast Cancer Risk 1.90% Lifetime Breast Cancer Risk 4.40% Personal Breast Cancer No Personal Ovarian Cancer No Treatments None Family Cancers Sister with unknown cancer at age ~60. LOCATION: [facility] BREAST COMPOSITION: The breasts are extremely dense, which lowers the sensitivity of mammography. FINDINGS: RIGHT BREAST: No significant suspicious finding. Benign-appearing calcifications are present. Similar focal asymmetries are present. There is a benign-appearing lymph node along the right chest wall . LEFT BREAST: No significant suspicious finding. Benign-appearing calcifications are present. Similar focal asymmetries are present. Benign-appearing lymph node is noted along the chest wall. DIAGNOSTIC CATEGORY 2--BENIGN FINDING: RECOMMENDATIONS: ROUTINE MAMMOGRAM AND CLINICAL EVALUATION IN 12 MONTHS. PLEASE NOTE: A NORMAL MAMMOGRAM DOES NOT EXCLUDE THE POSSIBILITY OF BREAST CANCER. A CLINICALLY SUSPICIOUS PALPABLE LUMP SHOULD BE BIOPSIED. Dictated by: Augustus Baires MD on 03/01/2025 at 10:25 Approved by: Augustus Baires MD on 03/01/2025 at 10:30
== END 2025-03-01 09:45 | disposition home or self-care (01) ==
LOC: MAMMO 09:44
PROVIDERS: PCP Nurse Practitioner Family; Visit Provider Nurse Practitioner Family
DX: Z12.31 Encounter for screening mammogram for malignant neoplasm of breast (principal); Z80.8 Family history of malignant neoplasm of other organs or systems
CPT/HCPCS: 77063; 77067